=== PATIENT | male | born 1945 | race Caucasian/White ===

== ENCOUNTER 2023-10-28 15:12 | Outpatient (AMB) | payer MEDICARE, SELFPAY ==
--- NOTE | 2023-10-28 15:30 | MHC.PC.OV ---
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 Intake Note: New patient visit Medication List - Last Reconciled 10/28/23 by Aaliyah Carrillo MD albuterol sulfate 90 mcg/actuation inhalation atorvastatin 20 mg PO DAILY levothyroxine mcg PO umeclidinium-vilanterol 62.5-25 mcg/actuation (Anoro Ellipta) 1 ea inhalation DAILY Tobacco use date assessed: 10/28/23 Fall risk assessment: No Falls in past year Last assessed Fall Risk: 10/28/23 Dental Screening Dental Screen Date: 10/28/23 Did you have a dental visit in the last 12 months?: Yes Did you have a dental problem in the last 6 months where you did not have access to dental care?: No HPI HPI Comments History of Present Illness Details The patient is a 78 year old male with a past medical history of metastatic papillary thyroid cancer, hypothyroid, hyperlipidemia, arthritis presenting for follow up Thyroid cancer: Levels went up from 10-12. u/s and blood work every six months. Continued levothyroxine Underwent back surgery at [facility]. Back pain is decreased. Still having bilateral leg pain, shooting. Tried gabapentin in the past, duloxetine. [facility] He does endorse globus, difficulty swallowing at times. Declines GI consult. Continued sleep issues. Not using trazodone-wasnt working CV: On atorvastatin. Chronic shortness of breath. Afib or similar suspected. Declined AC. Underwent thorough cardiopulmonary work up. He is on anoro. Small mass/lump in left arm. New. Uncomfortable if he bumps it ROS see HPI PHYSICAL EXAM: GENERAL: Alert and oriented x 3. NAD EYES: EOMI. Anicteric. HENT: Moist mucous membranes. No scleral icterus. No cervical lymphadenopathy. LUNGS: Clear to auscultation bilaterally. CARDIOVASCULAR: Regular rate and rhythm. No murmur. No JVD. ABDOMEN: Soft, non-tender +bs EXTREMITIES: No edema. Non-tender. SKIN: No rashes or lesions. Warm. NEUROLOGIC: No focal neurological deficits. CN II-XII grossly intact PSYCHIATRIC: Cooperative. Appropriate mood and affect [facility] Family History (Updated 10/28/23 @ 16:20 by Sandy Gomez CMA) Mother Coronary artery disease Pulmonary embolism Father Cancer of prostate Social History (Updated 10/28/23 @ 15:33 by Sandy Gomez CMA) Housing: House (With ) Patient Tobacco Use Status: Former Tobacco user (Quit 50 years ago) Cigarette Packs Per Day: 0.5 Years Smoked: 3 e-Cigarette/Vaping Use: Never Used Second Hand Smoke Exposure: No service: Yes Current occupational status: retired Cognitive needs: No Hearing needs: Yes (bilateral hearing aids) Vision needs: Yes (glasses) Questionnaire PHQ-9 Over the last 2 weeks, how often have you been bothered by any of the following problems? 1. Little interest or pleasure in doing things: not at all 2. Feeling down, depressed, or hopeless: not at all 3. Trouble falling or staying asleep, or sleeping too much: several days 4. Feeling tired or having little energy: nearly every day 5. Poor appetite or overeating: not at all 6. Feeling bad about yourself - or that you are a failure or have let yourself or your family down: not at all 7. Trouble concentrating on things, such as reading the newspaper or watching television: not at all 8. Moving or speaking so slowly that other people could have noticed. Or the opposite - being so fidgety or restless that you have been moving around a lot more than usual: several days 9. Thoughts that you would be better off or of hurting yourself in some way: not at all Total score: 5 Depression Screening Interpretation: Positive Depression Screening Follow-up: Existing condition Depression Screening Done: Yes 58119 - PHQ-9 Billing: Yes Source: Developed by Drs. Pavan Phillip, Kim Garland, Jay Abreu and colleagues, with an educational collins from [employer]. Thrive Questionnaire I am a: Patient What is your living situation today?: I have a steady place to live Within the past 12 months, did the food you bought not last and you didn't have the money to get more?: Never true Within the past 12 months, did you worry whether your food would run out before you got money to buy more?: Never true Do you have trouble paying for medicines?: I choose not to answer this question Do you have trouble getting transportation to medical appointments?: No Do you have trouble paying your heating and electricity bill?: No Do you have trouble taking care of your child, family member or friend?: No Do you have trouble with day-to-day activities such as bathing, preparing meals, shopping, managing finances, etc.?: No Are you currently unemployed and looking for a job?: Yes Are you interested in more education?: No Please select the resources that you would like help with: None Currently or been in a relationship where the following occur: No concerns reported THRIVE Score: 0 AUDIT C Alcohol Use Questionnaire (AUDIT-C) 1. How often do you have a drink containing alcohol?: Never 3. How often do you have six or more drinks on one occasion?: Never Total Score: 0 MEEK-7 AMB Questionnaire MEEK-7 Date MEEK - 7 assessed: 10/28/23 Feeling nervous, anxious, or on edge: 1 = Several days Not being able to stop or control worryin = Not at all Worrying too much about different things: 0 = Not at all Trouble relaxin = Not at all Being so restless that it is hard to sit still: 0 = Not at all Feeling afraid as if something awful might happen: 0 = Not at all Source: Developed by Drs. Pavan Phillip, Kim Garland, Jay Abreu and colleagues, with an educational collins from [employer]. Physical exam (Primary Care) Vital Signs: Last Vital Signs Temp 97.9 F 10/28/23 15:34 Pulse 61 10/28/23 15:34 Resp 14 10/28/23 15:34 BP 132/62 10/28/23 15:52 Pulse Ox 97 10/28/23 15:34 Oxygen Delivery Method Room Air 10/28/23 15:34 BMI result Body Mass Index 29.2 Tobacco/Smoking Status: Tobacco use Status Tobacco use date assessed 10/28/23 10/28/23 15:37 Patient Tobacco Use Status Former Tobacco user (Quit 50 10/28/23 15:37 years ago) e-Cigarette/Vaping Use Never Used 10/28/23 15:37 PHQ-9: PHQ-9 Score PHQ-9: Total score 5 10/28/23 16:17 Depression Screening Interpretation: Positive Depression Screening Follow-up: Existing condition Currently or been in a relationship where the following occur: No concerns reported Assessment and Plan Assessment & Plan (1) 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: Code(s): C79.9 - Secondary malignant neoplasm of unspecified site; C73 - Malignant neoplasm of thyroid gland Plan: continue follow up with endocrinology. stable (2) Neuropathy: Code(s): G62.9 - Polyneuropathy, unspecified Plan: Trial lyratnaa Discussed potential side effects including dizziness, fatigue (3) Mass of arm: Code(s): R22.30 - Localized swelling, mass and lump, unspecified upper limb Qualifiers: Laterality: left Qualified Code(s): R22.32 - Localized swelling, mass and lump, left upper limb Plan: u/s ordered. 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 Declines GI referral (5) Shortness of breath: Code(s): R06.02 - Shortness of breath Plan: Suspect afib or similar. Declines AC other than aspirin. Declines lopressor, flecainide. Declines cardiology follow up Orders: Orders Vitamin B12 and Folate 10/28/23 E78.5 - Hyperlipidemia, unspecified, G62.9 - Polyneuropathy, unspecified Hemoglobin A1c 10/28/23 E78.5 - Hyperlipidemia, unspecified, G62.9 - Polyneuropathy, unspecified IRON PROFILE 10/28/23 E78.5 - Hyperlipidemia, unspecified, G62.9 - Polyneuropathy, unspecified US extremity nonvascular 10/28/23 R22.30 - Localized swelling, mass and lump, unspecified upper limb Referrals Gastroenterology Referral J02.9 - Acute pharyngitis, unspecified, R07.9 - Chest pain, unspecified, R13.10 - Dysphagia, unspecified Medications: New pregabalin 150 mg PO BID 180 caps 0RF 90 days atorvastatin 20 mg PO DAILY 90 tabs 3RF 90 days umeclidinium-vilanterol 62.5-25 mcg/actuation (Anoro Ellipta) 1 ea inhalation DAILY 60 ea 3RF albuterol sulfate 90 mcg/actuation 2 puffs inhalation Q4H PRN 8.5 grams 3RF shortness of breath or wheezing 90 days levothyroxine 200 mcg PO DAILY 90 tabs 3RF Coding Level of Care Code Est Pt Level 5 (80284) Diagnoses 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 C79.9; C73 Neuropathy G62.9 Mass of left upper extremity R22.32 Laterality: left Dysphagia, unspecified type R13.10 Dysphagia type: unspecified Shortness of breath R06.02 Time Spent (min) 52
[2023-10-28 15:34] VITALS: BP 144/70; PULSE 61; RESP 14; TEMP 36.6; O2SAT 97; BMI 29.2
[2023-10-28 15:52] VITALS: BP 132/62
== END 2023-10-28 17:02 | disposition home or self-care (01) ==
PROVIDERS: Visit Provider Internal Medicine
DX: C79.9 Secondary malignant neoplasm of unspecified site (principal); C73 Malignant neoplasm of thyroid gland; G62.9 Polyneuropathy, unspecified; R22.32 Localized swelling, mass and lump, left upper limb; R13.10 Dysphagia, unspecified; R06.02 Shortness of breath
CPT/HCPCS: 99215

== ENCOUNTER 2023-11-05 13:59 | Outpatient (REF) | payer MEDICARE, SELFPAY ==
--- NOTE | ~2023-11-05 | US_ITS ---
EXAMINATION: ULTRASOUND LEFT FOREARM CLINICAL INFORMATION: Left medial forearm mass. COMPARISON: None available. TECHNIQUE: High frequency linear ultrasound transducer was used to examine the area of clinical concern. FINDINGS: There is a tiny complex 6 x 3 x 6 mm cyst present with some internal echoes with increased through transmission. No internal vascularity is seen. No septations are seen. US/US extremity nonvascular IMPRESSION: Tiny complex cyst left medial forearm. Electronically signed by: Adi Gracia MD 11/06/2023 12:28 AM EDT
== END 2023-11-05 14:00 | disposition home or self-care (01) ==
LOC: HO.US 13:59
PROVIDERS: PCP Internal Medicine; Visit Provider Internal Medicine
DX: R22.30 Localized swelling, mass and lump, unspecified upper limb (principal)
CPT/HCPCS: 76882

== ENCOUNTER 2024-01-21 08:51 | Outpatient (AMB) | payer MEDICARE, SELFPAY ==
--- NOTE | 2024-01-21 08:59 | A.OFFVIS_ITS ---
Vital Signs 01/21/24 09:01 Height 6 ft 2.41 in Weight 230 lb BMI 29.2 Intake Visit Reasons: Left knee pain Intake Note: Evert is a 79 year old male who presents with complaints of progressively worsening left knee pain. Describes his pain as sharp and severe in nature. His pain has gotten worse over the last few years in spite of continued non operative treatments. He has failed the last 3 months of conservative treatment which has included topical creams, physical therapy exercises, Tylenol and anti- inflammatory medicines. He has had multiple cortisone injections in the past. The most recent injection gave him no relief. He has also had Euflexxa viscosupplementation injections which gave him very good relief. At this point the patient's left knee pain is interfering with his activities of daily living and his ability to sleep well through the night. The patient did undergo right total knee replacement surgery several years ago. Denies any pain in his right knee. He wishes to hold off on left total knee replacement surgery for as long as possible. Allergies No Known Allergies Allergy (Verified 01/21/24 09:06) Medication List - Last Reconciled 01/21/24 by Oniel Javier MD albuterol sulfate 90 mcg/actuation 2 puffs inhalation Q4H PRN 90 days atorvastatin 20 mg PO DAILY 90 days levothyroxine 200 mcg PO DAILY pregabalin 150 mg PO BID 90 days umeclidinium-vilanterol 62.5-25 mcg/actuation (Anoro Ellipta) 1 ea inhalation DAILY PFSH Family History (Updated 10/28/23 @ 16:20 by Sandy Gomez CMA) Mother Coronary artery disease Pulmonary embolism Father Cancer of prostate Social History (Updated 10/28/23 @ 15:33 by Sandy Gomez CMA) Housing: House (With ) Patient Tobacco Use Status: Former Tobacco user (Quit 50 years ago) Cigarette Packs Per Day: 0.5 Years Smoked: 3 e-Cigarette/Vaping Use: Never Used Second Hand Smoke Exposure: No service: Yes Current occupational status: retired Cognitive needs: No Hearing needs: Yes (bilateral hearing aids) Vision needs: Yes (glasses) Physical Exam Vital Signs: BMI result Body Mass Index 29.2 Const Other: Well-nourished well-developed very friendly male awake alert and oriented x3 in no acute distress Extrem Other: Bilateral lower extremity examination shows good capillary refill, no skin lesions noted, normal sensation light touch Left knee examination shows a minimal effusion, palpable crepitus with range of motion, pain with range of motion, range of motion from -3 degrees to 115 degrees, no instability Results Reviewed Results Reviewed: X-rays of the patient's left knee show joint space narrowing, subchondral sclerosis, no acute bony abnormalities Assessment & Plan Assessment & Plan (1) Left knee pain: Code(s): M25.562 - Pain in left knee Category: Medical (2) Osteoarthritis of left knee: Code(s): M17.12 - Unilateral primary osteoarthritis, left knee Category: Medical Plan Mr. Clemons presents with progressively worsening left knee pain due to osteoarthritis. I had a lengthy discussion with the patient regarding the treatment options. The patient wishes to hold off on left total knee re placement surgery for as long as possible. I agree with this plan. He has not gotten good relief from cortisone injections in the past. Thus, I will see whether or not his insurance company will cover a series of 3 Euflexxa viscosupplementation injections. I will see him back once the injections are available. Feel free to call me at any time should questions regarding his orthopedic management arise. I spent 20 minutes in reviewing the patient's records and imaging studies, seeing the patient and documenting in the medical record. Orders: Orders XR knee LT 3V Today M25.562 - Pain in left knee Coding Level of Care Code Est Pt Level 3 (46232) Complex EM visit Add On G2211 Diagnoses Left knee pain M25.562 Osteoarthritis of left knee M17.12
[2024-01-21 09:01] VITALS: BMI 29.2
== END 2024-01-21 09:22 | disposition home or self-care (01) ==
PROVIDERS: PCP Internal Medicine; Visit Provider Orthopaedic Surgery
DX: M25.562 Pain in left knee (principal); M17.12 Unilateral primary osteoarthritis, left knee
CPT/HCPCS: 99213; G2211

== ENCOUNTER 2024-01-21 09:49 | Outpatient (REF) | payer MEDICARE, SELFPAY ==
--- OUTSIDE RECORDS SUMMARY | 2024-01-28 17:19 | XMS_ITS ---
Author Name [facility] Organization Unknown History of Medication Use Medication Directions Dispensed Refills Start Date End Date Stat HYDROmorphone (DILAUDID) 2 MG tablet Take 1 tablet (2 mg total) by mouth Every 4 (four) to 6 (six) hours as needed for severe pain. Max Daily Amount: 12 mg 06/20/2023 active acetaminophen (TYLENOL) 325 MG tablet Take 3 tablets (975 mg total) by mouth every 8 (eight) hours around the clock. 06/20/2023 active cyclobenzaprine (FLEXERIL) 5 MG tablet Take 1 tablet (5 mg total) by mouth 3 (three) times a day as needed for muscle spasms. 06/20/2023 active senna-docusate (SENNA-S) 8.6-50 MG Take 2 tablets by mouth nightly. 06/20/2023 active umeclidinium-vilanterol (ANORO ELLIPTA) 62.5-25 MCG/ACT inhaler Inhale 1 puff every morning. 06/20/2023 active gabapentin (NEURONTIN) 300 MG capsule Take 1 capsule (300 mg total) by mouth 3 times daily (every 8 hours) as needed. 06/20/2023 active levothyroxine (SYNTHROID, LEVOTHROID) 200 MCG tablet Take 1 tablet (200 mcg total) by mouth every evening. 06/20/2023 active levothyroxine (SYNTHROID, LEVOTHROID) 200 MCG tablet 1 tab, orally daily, take an extra tab 2 days/month 01/17/2023 active albuterol (PROVENTIL HFA; VENTOLIN HFA) 108 (90 Base) MCG/ACT inhaler Inhale 2 puffs 4 times daily (every 6 hours) as needed. 01/17/2023 active umeclidinium-vilanterol (ANORO ELLIPTA) 62.5-25 MCG/ACT inhaler INHALE 1 INHALATION BY MOUTH ONCE DAILY 01/17/2023 active atorvastatin (LIPITOR) 20 MG tablet Take 1 tablet (20 mg total) by mouth daily. 01/17/2023 active gabapentin (NEURONTIN) 300 MG capsule TAKE 1 CAPSULE BY MOUTH 3 TIMES A DAY FOR 90 DAYS 01/17/2023 active Problems Problem Status Onset Date Problem Type Date of Resoluti on Source Disease of spinal cord active 2023-06-12 ProblemAct [facility] Neurogenic claudication due to lumbar spinal stenosis active 2023-06-12 ProblemAct HH CCT
== END 2024-01-21 09:50 | disposition home or self-care (01) ==
LOC: HO.HOSX 09:49
PROVIDERS: Visit Provider Orthopaedic Surgery
DX: M25.562 Pain in left knee (principal); M17.12 Unilateral primary osteoarthritis, left knee
CPT/HCPCS: 73562; 99212

== ENCOUNTER 2024-01-29 08:38 | Outpatient (AMB) | payer MEDICARE, SELFPAY ==
--- NOTE | 2024-01-29 08:42 | MHC.OFFVIS ---
Vital Signs 01/29/24 08:44 Height 6 ft 2.41 in Weight 230 lb BMI 29.2 Intake Visit Reasons: Inj-Left Knee Euflexxa #1 Intake Note: Evert is a 79 year old male who presents to the office for his first dose of Euflexxa gel injection on the left knee. He has had cortisone injections in the past which gave him minimal relief. He has also done physical therapy exercises which aggravated his pain. The patient did undergo right total knee replacement surgery in the past. He wishes to hold off on left total knee replacement surgery for as long as possible. Allergies No Known Allergies Allergy (Verified 01/29/24 08:45) Medication List - Last Reconciled 01/29/24 by Oniel Javier MD albuterol sulfate 90 mcg/actuation 2 puffs inhalation Q4H PRN 90 days atorvastatin 20 mg PO DAILY 90 days levothyroxine 200 mcg PO DAILY pregabalin 150 mg PO BID 90 days umeclidinium-vilanterol 62.5-25 mcg/actuation (Anoro Ellipta) 1 ea inhalation DAILY PFSH Family History (Updated 10/28/23 @ 16:20 by Sandy Gomez CMA) Mother Coronary artery disease Pulmonary embolism Father Cancer of prostate Social History (Updated 10/28/23 @ 15:33 by Sandy Gomez CMA) Housing: House (With ) Patient Tobacco Use Status: Former Tobacco user (Quit 50 years ago) Cigarette Packs Per Day: 0.5 Years Smoked: 3 e-Cigarette/Vaping Use: Never Used Second Hand Smoke Exposure: No service: Yes Current occupational status: retired Cognitive needs: No Hearing needs: Yes (bilateral hearing aids) Vision needs: Yes (glasses) Physical Exam Vital Signs: BMI result Body Mass Index 29.2 Const Other: Well-nourished well-developed very friendly male awake alert and oriented x3 in no acute distress Extrem Other: Bilateral lower extremity examination shows good capillary refill, no skin lesions noted, normal sensation light touch Left knee examination shows a minimal effusion, palpable crepitus with range of, pain with range of motion, no instability Office Procedures AMB Joint Injection/Aspiration Joint Injection/Aspiration Primary Site: left knee Prep: site was prepped using aseptic technique Injected: 20 mg of (Euflexxa viscosupplementation) and 1% plain lidocaine Procedure: The patient tolerated the procedure well Coding 42145 - Large joint Procedure code (CPT) selection complete Results Reviewed Results Reviewed: X-rays of the patient's left knee show joint space narrowing, subchondral sclerosis, no acute bony abnormalities Assessment & Plan Assessment & Plan (1) Osteoarthritis of left knee: Code(s): M17.12 - Unilateral primary osteoarthritis, left knee Category: Medical Plan Mr. Clemons presents with left knee pain due to osteoarthritis. I had a lengthy discussion with the patient regarding the treatment options. The risks and benefits of a series of right knee Euflexxa injections were discussed at length with the patient. The patient wished to proceed. He tolerated the injections well. He will continue with his home exercise program. He will follow up next week as scheduled. Feel free to call me at any time should questions regarding his orthopedic management arise. I spent 21 minutes in reviewing the patient's records and imaging studies, seeing the patient and documenting in the medical record. Orders: Orders AMB Joint Injection/Aspiration Today M17.12 - Unilateral primary osteoarthritis, left knee Coding Level of Care Code Est Pt Level 3 (61054) Complex EM visit Add On G2211 Diagnoses Osteoarthritis of left knee M17.12 CPT Codes Coding - Large joint: 74786 - Large joint ([id number])
[2024-01-29 08:44] VITALS: BMI 29.2
--- OUTSIDE RECORDS SUMMARY | 2024-01-29 23:03 | XMS_ITS ---
Author Name [facility] [place] Organization [facility] [place] Address [address] [place] [id number] Care Team Providers Care Senior Actuarial Analyst Name Role Phone TERRIE DIAZ Primary Care Provider Unavaila tempe [facility] Insurance Providers: All historical and current Section Date Range: From patient's date of to the date document was created. This section includes the names of all active insurance providers for the patient. Insurance Provider Type of Coverage Plan Name Start of Policy Coverage End of Policy Coverage Group Number Member ID Insurance Provider's Telephone Number Policy Cardenas's Name Patient's Relationship to Policy Cardenas [facility] MEDICARE SUPP[employer] MED[employer] BRONZ E Mar 21, 2011 [id number] [phone] Katlyn BELLO PATIENT [facility] MEDICARE SUPP[employer] MED[employer] BRONZ E Mar 21, 2011 [id number] Katlyn BELLO PATIENT MEDICARE (WN) MEDICARE (M) PART A Dec 19, 2008 PART A [id number] Katlyn BELLO PATIENT MEDICARE (WNR) MEDICARE (M) PART B Dec 19, 2008 PART B [id number] Katlyn BELLO PATIENT Selected Encounter This section includes the information on record at [place] for the Encounter. Date/Time Encounter Type Encounter Description Reason Provider Source Dec 26, 2023 09:30 AM OFFICE O/P EST MOD 30 MIN DERMATOLOGY ICD-10-CM Z86.018 Personal history of other benign neoplasm WARNERROSE MARIE RAMOS Eddy Encounter Template Text not used by [place] Assessments - Encounter Diagnoses This section includes the primary and secondary diagnoses documented for the Encounter. Date/Time Primary/Secondary Diagnosis Diagnosis Name Provider Source Jan 09, 2024 04:53 PM PRIMARY Personal history of other [facility] [place] [facility] Jan 09, 2024 04:53 PM SECONDARY Hemangioma of skin and subcutaneous tissue [facility] [place] [facility] Jan 09, 2024 04:53 PM SECONDARY Inflamed seborrheic keratosis [facility] [place] [facility] Jan 09, 2024 04:53 PM SECONDARY Nevus, non-neoplastic [facility] [place] [facility] Jan 09, 2024 04:53 PM SECONDARY Other melanin hyperpigmentation [facility] [place] [facility] Jan 09, 2024 04:53 PM SECONDARY Other seborrheic keratosis [facility] [place] [facility] Plan of Treatment: Future Appointments (+ 6 months) and Future Tests (+/- 45 days) The Plan of Treatment section includes future care activities for the patient from all [place] [facility] This section includes future appointments and future orders which are active, pending or scheduled. Future Appointments This section includes appointments that were scheduled to occur 6 months from the date of the Encounter, up to a maximum of 20 appointments. The data comes from all [place] treatment facilities. Appointment Date/Time Appointment Type Appointme nt Facility Name Dec 27, 2023 03:00 PM AMBULATORY - MEDICINE [facility] [place] [place] [facility] Jan 10, 2024 01:00 PM AMBULATORY - MEDICINE [place] [facility] [place] [facility] Feb 20, 2024 04:40 PM AMBULATORY - MEDICINE [place] [facility] [place] [facility] Mar 27, 2024 10:30 AM AMBULATORY - MEDICINE [place] [facility] [place] [facility] Active, Pending, and Scheduled Orders This section includes a listing of several types of active, pending, and scheduled orders, including clinic medications orders, diagnostic test orders, procedure orders and consult orders; where the start date of the order is 45 days before the date of the Encounter or 45 days after the date of theEncounter. The data comes from all [place] treatment facilities. Test Date/Time Test Type Test Details Facility Name Dec 27, 2023 03:28 PM Consult Order COMMUNITY CARE-PULMONARY Cons Manager Language's Choice [facility] Lab Results: +/- 30 days of the encounter This section includes the Chemistry and Hematology Lab Results on record with [place] for the patient. Radiology Reports and Pathology Reports are provided separately, in subsequent sections. Lab Results This section contains the Chemistry/Hematology Results that were resulted 30 days before or 30 daysafter the date of the Encounter. Date/Time Source Result Type Result - Unit Interpretation Reference Range Comment Dec 27, 2023 03:37 PM [facility] TSH Specimen Type: SERUM No comment entered. Ordering Provider: KISHA DIAZ AM Report Released Date/Time: Dec 27, 2023 03:31 PM Reporting Lab: [facility] [address] [facility] [address] Performing Lab: [facility] [address] [facility] [address] TSH 0.08 u[IU]/mL L 0.35-5.00 Dec 27, 2023 03:37 PM [facility] HEMOGLOBIN A1C PANEL Specimen Type: BLOOD Comment: Values obtained from A1C measurements can vary. For atypical A1C assays, a reported value of 7.0 could actually be between 6.72 and 7.28 if measured by a reference method. A reported value of 9.0 could actually be between 8.73 and 9.27. Ref: http://www.ngs p.org/CAPdata. asp Ordering Provider: KISHA DIAZ AM Report Released Date/Time: Dec 27, 2023 03:31 PM Reporting Lab: [facility] [address] [facility] [address] Performing Lab: [address] [address] HEMOGLOBIN A1C 5.2 4.0-5.6 Dec 27, 2023 03:37 PM [facility] CBC Specimen Type: BLOOD No comment entered. Ordering Provider: KISHA DIAZ AM Report Released Date/Time: Dec 27, 2023 03:31 PM Reporting Lab: [address] [address] Performing Lab: [address] [address] WBC 7.94 10*3/uL 4.50-11.00 RBC 4.90 10*6/uL 4.23-5.66 HGB 14.7 g/dL 12.8-17 HCT 43.5 39.2-50.4 MCV 88.8 fL 82-99 MCHC 33.8 g/dL 30.8-35.1 PLT 263 10*3/uL 140-360 RDW-CV 13.2 12.0-16.0 MCH 30.0 pg 26.2-32.6 Dec 27, 2023 03:37 PM [facility] LIVER FUNCTION Specimen Type: SERUM No comment entered. Ordering Provider: KISHA DIAZ AM Report Released Date/Time: Dec 27, 2023 03:31 PM Reporting Lab: [address] [address] Performing Lab: [address] [address] PROTEIN,TOTAL 6.4 g/dL 6.0-8.3 ALBUMIN 3.8 g/dL 3.5-5.0 ALKALINE PHOSPHATASE 56 U/L 40-150 AST 18 U/L 5-34 ALT 15 U/L BILIRUBIN, TOTAL 0.6 mg/dL 0.2-1.2 Dec 27, 2023 03:37 PM [facility] BASIC METABOLIC PANEL (non-fasting) Specimen Type: SERUM No comment entered. Ordering Provider: KISHA DIZA AM Report Released Date/Time: Dec 27, 2023 03:31 PM Reporting Lab: [address] [address] Performing Lab: [facility] [address] [facility] [address] UREA NITROGEN 17 mg/dL 7-25 GLUCOSE 89 mg/dL 65-100 SODIUM 140 mmol/L 135-145 POTASSIUM 4.0 mmol/L 3.5-5.0 CHLORIDE 107 mmol/L 100-110 CO2 23 meq/L 20-30 CREATININE, Serum 0.96 mg/dL 0.50-1.40 eGFR(CKD-EPI 2020) 81 mL/min >60 Dec 27, 2023 03:37 PM [facility] LIPID PANEL, NON FASTING Specimen Type: SERUM No comment entered. Ordering Provider: KISHA DIAZ AM Report Released Date/Time: Dec 27, 2023 03:31 PM Reporting Lab: [facility] [address] [facility] [address] Performing Lab: [address] [address] CHOLESTEROL 153 mg/dL TRIGLYCERIDE 105 mg/dL 0-150 LDL calculated 86 mg/dL 0-129 CHOL/HDL 3.3 HDL CHOLESTEROL 46 mg/dL 40-60 Social History: Smoking Status (Most current) and Tobacco Use (All prior to encounter date) This section includes the most current, and the historical, smoking and tobacco- related health factors from the [place] facility where the Encounter took place. Current Smoking Status This section includes the most current smoking, or tobacco-related health factor, from the [place] facility where the Encounter took place. Date/Time Current Smoking Status Comment Edwin greenwood May 25, 2022 01:30 PM VA-TOBACCO NEVER USED [facility] Tobacco Use History This section includes a history of the smoking, or tobacco-related health factors, that were collected on or before the date of the Encounter. The data comes from the [place] facility where the Encounter took place. Date/Time Smoking Status/Tobacco Use Comment Yuki acdarian May 19, 2021 02:00 PM VA-TOBACCO [facility] [place] [facility] May 19, 2021 02:00 PM VA-TOBACCO QUIT 15 YRS OR MORE [facility] [place] [facility] Mar 24, 2020 08:36 AM VA-TOBACCO [facility] Mar 24, 2020 08:36 AM VA-TOBACCO QUIT 15 YRS OR MORE [facility] Sep 17, 2017 02:25 PM QUIT TOBACCO USE > 7 YEARS AGO [facility] Encounter Notes: All associated encounter notes This section contains the clinical notes associated to the Encounter. 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 denies any other new/changing/bleeding/non- healing lesions. 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 History of Sun Exposure/Sunburns: Denies blistering roberts or tanning bed use Active Outpatient Medications (including Supplies): Active Outpatient Medications Status 1) LUBRICATING (PF) OPH OINT APPLY THIN RIBBON INTO EACH ACTIVE EYE AT BEDTIME FOR DRY EYE Active Non-VA Medications Status 1) Non-VA ALBUTEROL INHALER INHL,ORAL BY MOUTH ACTIVE 2) Non-VA ATORVASTATIN TAB BY MOUTH ACTIVE 3) Non-VA LEVOTHYROXINE NA (SYNTHROID) 200MCG TAB 0.2MG ACTIVE BY MOUTH EVERY MONTH 4) Non-VA LEVOTHYROXINE NA (SYNTHROID) 200MCG TAB 0.2MG ACTIVE BY MOUTH EVERY MORNING 30 MINUTES BEFORE BREAKFAST 5) Non-VA UMECLIDINIUM/VILANTEROL (ANORO) INHL,ORAL BY ACTIVE MOUTH 6) Non-VA NJYBYIHFFHEB32.5/VILANTERO L25MCG 30D INH 1 ACTIVE INHALATION BY MOUTH ONCE DAILY 7 Total Medications PHYSICAL EXAM: Vizcarra Skintype II General-AxOx3, NAD, pleasant, breathing unlabored, speech clear Cutaneous examination, as permitted by the patient, including scalp, face, eyes, ears, neck, chest, back, abdomen, arms, hands, fingers, legs Pertinent findings per below: -L upper chest with a well healed surgical scar, NER -Multiple scattered stuck-on appearing waxy villeda and brown papules and plaques with noted milia-like cysts, comedo-like openings and fissures/ridges on dermoscopy. -Scattered uniformly pigmented light villeda and brown jagged macules in sun distributed areas. -Scattered kamara-red dome shaped papules on chest/back with noted lacunae and septae noted on dermoscopy -Multiple scattered symmetrical evenly pigmented brown macules and papules, most under 6mm. Diagnosis/Plan: #Personal History of Atypical Nevus: -No evidence of recurrence -Full Body Skin Exam advised yearly -Photoprotection discussed -Patient instructed to follow up in clinic for any concerning lesions or changes #Seborrheic Keratoses, Inflamed -The [place] was educated regarding the benign nature, but given irritation/pain, destructive treatment requested. -Liquid nitrogen cryotherapy performed as a destructive method. -Liquid nitrogen (2 cycles x 5-8sec) x #1 lesions performed (L Lower back - lesion of concern). -Side effects including but not limited to redness, crusting, swelling, blistering, scarring, and hypopigmentation discussed. -Wound care discussed in length. #Seborrheic Keratoses: -The [place] was educated regarding the benign nature, but to return with any growth, change or symptoms in area. #Nevi: -ABCDEs of melanotic lesions discussed, self examinations encouraged -No concerning lesions today on examination -A full body skin check is recommended yearly -Photoprotection discussed. #Solar Lentigines -The was educated regarding the benign nature and relation to chronic sun exposure, but to return with any growth, change or symptoms in area. -Photoprotection discussed. #Kamara Angiomas: -The was educated regarding the benign nature, but to return with any growth, change or symptoms in area. RTC 1 yr, sooner PRN * [place] educated to RTC klarissa if any new, changing, symptomatic lesions. * Education on sun protection and avoidance strategies was provided. * Differential diagnosis, prescription options and risks/benefits were discussed with the patient, who consented to treatment plan. * consented to photography for documentation if indicated. * A dermatoscope was used during the exam. * NUB = Neoplasm of Uncertain Behavior of Skin * NMSC = Nonmelanoma Skin Cancer * AK = Actinic Keratosis ------TIME ESTIMATION To include but not limied to: -Review of medical records -Time spent with patient including obtaining history, physical exam, shared decision making, procedures and counseling -Post visit documentation; HPI and physical exam findings, clinical researching, medical decision making, medication and lab ordering Total estimated time = 30 min ------- Medication Reconciliation: Outpatient: Has the patient been taking medications as documented in the EMLR? YES: The patient has been taking medications as documented in the EMLR. Essential Medication List for Review used to complete this medication reconciliation. INCLUDED IN THIS LIST: Alphabetical list of active outpatient prescriptions dispensed from this [place] (local) and dispensed from another [place] or DoD facility (remote) as well as inpatient orders (local, pending and active), local clinic medications, locally documented non-VA medications, and local prescriptions that have or been discontinued in the past 90 days. - All changes in medications, including all non-VA/Herbal/OTC medications were entered into CPRS. - If there were any medications the patient should no longer take, they were discontinued. - The patient/caregiver was instructed to update this list, discard old lists, and take this list to the next appointment, whether with a VA or non-VA provider. JLV Link Data on this list may not be complete. Please check JLV. Allergies/ADRs (Tool #5) FACILITY ALLERGY/ADR -------- No Remote Allergy/ADR Data available for this patient [place] [facility] [place] [facility] No Known Allergies Med Recon NoGlossary (Tool #1) INCLUDED IN THIS LIST: Alphabetical list of active outpatient prescriptions dispensed from this VA (local) and dispensed from another VA or DoD facility (remote) as well as inpatient orders (local pending and active), local clinic medications, locally documented non-VA medications, and local prescriptions that have or been discontinued in the past 90 days. Non-VA Meds Last Documented On: May 25, 2022 NOTE The display of VA prescriptions dispensed from another VA or DoD facility (remote) is limited to active outpatient prescription entries matched to National Drug File at the originating site and may not include some items such as investigational drugs, compounds, etc. NOT INCLUDED IN THIS LIST: Medications self-entered by the patient into personal health records (i.e. [employer]) are NOT included in this list. Non-VA medications documented outside this [place], remote inpatient orders (regardless of status) and remote clinic medications are NOT included in this list. The patient and provider must always discuss medications the patient is taking, regardless of where the medication was dispensed or obtained. Non-VA ALBUTEROL INHALER INHL,ORAL INHALE BY MOUTH Non-VA medication recommended by VA provider. Non-VA ATORVASTATIN TAB TAKE BY MOUTH Non-VA medication recommended by VA provider. Non-VA LEVOTHYROXINE NA (SYNTHROID) 200MCG TAB TAKE ONE TABLET BY MOUTH EVERY MORNING 30 MINUTES BEFORE BREAKFAST Patient wants to buy from Non-[place] pharmacy. Medication prescribed by Non-VA provider. Non-VA LEVOTHYROXINE NA (SYNTHROID) 200MCG TAB TAKE ONE TABLET BY MOUTH EVERY MONTH Patient wants to buy from Non-DE pharmacy. Medication prescribed by Non-VA provider. OUTPT LUBRICATING (PF) OPH OINT (Status = Active) APPLY THIN RIBBON INTO EACH EYE AT BEDTIME FOR DRY EYE Rx# [id number] Last Released: 04/01/23 Qty/Days Supply: Rx Expiration Date: 03/25/24 Refills Remainin Indication: FOR DRY EYE Non-VA UMECLIDINIUM/VILANTEROL (ANORO) INHL,ORAL INHALE BY MOUTH ONCE DAILY Non-VA CUQEFOJZOESP65.5/VILANTERO L25MCG 30D INH DIHAMZJCFQNY02.5/VILANTERO L25MCG 30D INH INHALE 1 INHALATION BY MOUTH ONCE DAILY Medication prescribed by Non-VA provider. Indication: FOR BRONCHOSPASM PREVENTION WITH COPD SUPPLIES /renetta/ GABRIELLA ALVARADO, BRYSON, BLOOD BANK ORDER CONTROL CLERK-C NURSE PRACTITIONER Signed: 12/26/2023 10:00 GABRIELLA ALVARADO [facility] [place] [facility]
--- OUTSIDE RECORDS SUMMARY | 2024-01-29 23:03 | XMS_ITS | Continuity of Care Document ---
Author Name [facility] Organization [facility] Care Team Providers Care Pull Up Hand Name Role Phone [facility] Unavailable Unavailable Problems Combined list of problems from Department of Defense and Veterans Affairs facilities. It does not include entries that were removed or entered in error. Problem Status Onset Date Problem Type Date of Resolution Comments Source AF - Atrial Fibrillation ([facility] [id number]) Active [facility] Benign prostatic hyperplasia Active Condition [facility] COPD - Chronic Obstructive Pulmonary Disease ([facility] 27643423) Active Condition [facility] Exposure to potentially hazardous substance Active Condition [facility] Hyperlipidemia Active Condition [facility]aired fasting glycaemia Active Condition [facility] Papillary thyroid carcinoma Active Condition [facility] Spinal stenosis Active [facility] Vocal cord paralysis Active Condition [facility] Diagnosis: ICD-10-CM H61.23 Impacted cerumen, bilateral Active Diagnosis [facility] Diagnosis: ICD-10-CM I48.91 Unspecified atrial fibrillation Active Diagnosis [facility] Diagnosis: ICD-10-CM Z86.018 Personal history of other benign neoplasm Active Diagnosis [facility] Diagnosis: ICD-10-CM Z02.89 Encounter for other administrative examinations Active Diagnosis [facility] Diagnosis: ICD-10-CM Z46.0 Encounter for fit/adjst of spectacles and contact lenses Active Diagnosis [facility] Diagnosis: ICD-10-CM H40.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 Medication Details Route Status Patient Instructions Prescription Expires Prescription Number Last Dispense Date Ordering Provider Order Date Order Qty Source ALBUTEROL 90MCG/ACTUA T (CFC-F) INHL,ORAL,8 .5GM DOSE COUNTER INHALE 2 PUFFS BY MOUTH EVERY 4 HOURS NEEDED FOR BRONCHOS PASM RESPIR ATORY (INHAL ATION) ACTIVE 12/27/2024 [id number] TERRIE DIAZ 2023 1 [facility] ALBUTEROL INHALER INHL,ORAL INHALE BY MOUTH RESPIR ATORY (INHAL ATION) ACTIVE Sebastian [facility] ATORVASTATI N TAB TAKE BY MOUTH ORAL ACTIVE Sebastian [facility] CARBAMIDE PEROXIDE 6.5%/GLYCER IN SOLN,OTIC INSTILL 5 DROPS INTO EACH EAR ONCE 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 (OTIC) 01/26/2024 [id number] TERRIE DIAZ 2023 15 [facility] CARBOXYMETH YLCELLULOSE NA 0.5% SOLN,OPH INSTILL 1 DROP INTO EACH EYE FOUR TIMES DAILY NEEDED FOR DRY EYES OPHTHA LMIC 05/16/2023 [id number] 4 Sebastian [facility] LEVOTHYROXI NE NA 200MCG TAB (SYNTHROID) TAKE ONE TABLET BY MOUTH EVERY MORNING 30 MINUTES BEFORE BREAKFAS T ORAL ACTIVE TERRIE DIAZ 2017 [facility] [place] LEVOTHYROXI NE NA 200MCG TAB (SYNTHROID) TAKE ONE TABLET BY MOUTH EVERY MONTH ORAL ACTIVE TERRIE DIAZ 2018 [facility] MINERAL OIL,LIGHT/P ETROLATUM (PF) OINT,OPH APPLY THIN RIBBON INTO EACH EYE AT BEDTIME FOR DRY EYE OPHTHA LMIC ACTIVE 03/25/2024 [id number] JASONA[facility]ba[facility]oma[facility] E 2023 3 [facility] UMECLIDINIU M 62.5MCG/BRIAN ANTEROL 25MCG/ACTUA T INH,ORAL,30 D INHALE 1 INHALATI ON BY MOUTH ONCE DAILY RESPIR ATORY (INHAL ATION) ACTIVE TERRIE DIAZ 2022 [facility] UMECLIDINIU M/VILANTERO L (ANORO) INHL,ORAL INHALE BY MOUTH ONCE DAILY RESPIR ATORY (INHAL ATION) ACTIVE Sebastian MORAELE 2022 [facility] Immunizations Combined list of available immunizations from the Department of Defense and Veterans Affairs facilities. Immunization Series Date Given Administered By Site Reaction Lot Number CVX Code Drug Bread Wrapping Machine Feeder Status Comments Source COVID-19 (MODERNA), MRNA, LNP-S, PF, 100 MCG/0.5 ML DOSE 2 2020 207 complet ed MOD; [id number]; 1 [facility] ZOSTER RECOMBINANT 2 2019 187 complet ed [facility] ZOSTER RECOMBINANT 1 2019 187 complet ed [facility] INFLUENZA, SEASONAL, INJECTABLE 2016 141 complet ed [facility] PNEUMOCOCCAL CONJUGATE PCV 13 2016 133 complet ed YES [facility] TD(ADULT) UNSPECIFIED FORMULATION 2013 139 complet ed [facility] TDAP 2013 115 complet ed [facility] PNEUMOCOCCAL POLYSACCHARID E PPV23 2012 33 complet ed [facility] Results Combined list of recent chemistry, hematology and other laboratory results from Department of Defense and Veterans Affairs, ranging from 15 months to all on record, depending upon the facility. Order Name Results Value Reference Range Date Interpretation Specimen Comments Source BASIC METABOLIC PANEL (non-fast ing) UREA NITROGEN [MASS/VOLUM E] IN SERUM OR PLASMA 17 mg/dL 7 - 25 12/26 Specimen Type: SERUM No comment entered. Ordering Provider: MANOLO DIAZ Report Released Date/Time: Dec 27, 2023 03:31 PM Reporting Lab: [address] [address] Performing Lab: [address] [address] [facility] BASIC METABOLIC PANEL (non-fast ing) GLUCOSE [MASS/VOLUM E] IN SERUM OR PLASMA 89 mg/dL 65 - 100 12/26 Specimen Type: SERUM No comment entered. Ordering Provider: MANOLO DIAZ Report Released Date/Time: Dec 27, 2023 03:31 PM Reporting Lab: [facility] [address] [facility] [address] Performing Lab: [address] [address] [facility] BASIC METABOLIC PANEL (non-fast ing) SODIUM [MOLES/VOLU ME] IN SERUM OR PLASMA 140 mmol/L 135 - 145 12/26 Specimen Type: SERUM No comment entered. Ordering Provider: MANOLO DIAZ Report Released Date/Time: Dec 27, 2023 03:31 PM Reporting Lab: [facility] [address] [address] Performing Lab: [address] [address] [facility] BASIC METABOLIC PANEL (non-fast ing) POTASSIUM [MOLES/VOLU ME] IN SERUM OR PLASMA 4.0 mmol/L 3.5 - 5.0 12/26 Specimen Type: SERUM No comment entered. Ordering Provider: MANOLO DIAZ Report Released Date/Time: Dec 27, 2023 03:31 PM Reporting Lab: [facility] [place] [facility] [address] [facility] [address] Performing Lab: [facility] [place] [facility] [address] [facility] [address] [facility] [place] [facility] BASIC METABOLIC PANEL (non-fast ing) CHLORIDE [MOLES/VOLU ME] IN SERUM OR PLASMA 107 mmol/L 100 - 110 12/26 Specimen Type: SERUM No comment entered. Ordering Provider: MANOLO DIAZ Report Released Date/Time: Dec 27, 2023 03:31 PM Reporting Lab: [facility] [place] [facility] [address] [address] Performing Lab: [facility] [place] [address] [address] [facility] BASIC METABOLIC PANEL (non-fast ing) CARBON DIOXIDE, TOTAL [MOLES/VOLU ME] IN SERUM OR PLASMA 23 meq/L 20 - 30 12/26 Specimen Type: SERUM No comment entered. Ordering Provider: MANOLO DIAZ Report Released Date/Time: Dec 27, 2023 03:31 PM Reporting Lab: [facility] [place] [address] [address] Performing Lab: [facility] [place] [address] [address] [facility] [place] [facility] BASIC METABOLIC PANEL (non-fast ing) CREATININE [MASS/VOLUM E] IN SERUM OR PLASMA 0.96 mg/dL 0.50 - 1.40 12/26 Specimen Type: SERUM No comment entered. Ordering Provider: MANOLO DIAZ Report Released Date/Time: Dec 27, 2023 03:31 PM Reporting Lab: [facility] [place] [address] [address] Performing Lab: [facility] [place] [address] [address] [facility] [place] [facility] BASIC METABOLIC PANEL (non-fast ing) GLOMERULAR FILTRATION RATE/1.73 SQ M.PREDICTED [VOLUME RATE/AREA] IN SERUM, PLASMA OR BLOOD BY CREATININE- BASED FORMULA (CKD-EPI 2020) 81 mL/min 60 12/26 Specimen Type: SERUM No comment entered. Ordering Provider: MANOLO DIAZ Report Released Date/Time: Dec 27, 2023 03:31 PM Reporting Lab: [facility] [place] [address] [address] Performing Lab: [facility] [place] [facility] [address] [address] [facility] [place] [facility] CBC LEUKOCYTES [#/VOLUME] IN BLOOD BY AUTOMATED COUNT 7.94 10*3/u L 4.50 - 11.00 12/26 Specimen Type: BLOOD No comment entered. Ordering Provider: MANOLO DIAZ Report Released Date/Time: Dec 27, 2023 03:31 PM Reporting Lab: [facility] [place] [address] [address] Performing Lab: [facility] [place] [address] [address] [facility] [place] [facility] CBC ERYTHROCYTE S [#/VOLUME] IN BLOOD BY AUTOMATED COUNT 4.90 10*6/u L 4.23 - 5.66 12/26 Specimen Type: BLOOD No comment entered. Ordering Provider: MANOLO DIAZ Report Released Date/Time: Dec 27, 2023 03:31 PM Reporting Lab: [facility] [place] [address] [address] Performing Lab: [facility] [place] [address] [address] [facility] [place] [facility] CBC HEMOGLOBIN [MASS/VOLUM E] IN BLOOD 14.7 g/dL 12.8 - 17 12/26 Specimen Type: BLOOD No comment entered. Ordering Provider: MANOLO DIAZ Report Released Date/Time: Dec 27, 2023 03:31 PM Reporting Lab: [facility] [address] [address] Performing Lab: [facility] [place] [facility] [address] [facility] [address] [facility] [place] [facility] CBC HEMATOCRIT [VOLUME FRACTION] OF BLOOD BY AUTOMATED COUNT 43.5 39.2 - 50.4 12/26 Specimen Type: BLOOD No comment entered. Ordering Provider: MANOLO DIAZ Report Released Date/Time: Dec 27, 2023 03:31 PM Reporting Lab: [facility] [place] [facility] [address] [facility] [facility] [address] Performing Lab: [facility] [place] [facility] [address] [facility] [facility] [address] [facility] [place] [facility] CBC MCV [ENTITIC VOLUME] BY AUTOMATED COUNT 88.8 fL 82 - 99 12/26 Specimen Type: BLOOD No comment entered. Ordering Provider: MANOLO DIAZ Report Released Date/Time: Dec 27, 2023 03:31 PM Reporting Lab: [facility] [place] [facility] [address] [facility] [address] Performing Lab: [facility] [place] [facility] [address] [address] [facility] [place] [facility] CBC MCHC [MASS/VOLUM E] BY AUTOMATED COUNT 33.8 g/dL 30.8 - 35.1 12/26 Specimen Type: BLOOD No comment entered. Ordering Provider: MANOLO DIAZ Report Released Date/Time: Dec 27, 2023 03:31 PM Reporting Lab: [facility] [place] [facility] [address] [facility] [address] Performing Lab: [facility] [place] [facility] [address] [facility] [address] [facility] [place] [facility] CBC PLATELETS [#/VOLUME] IN BLOOD BY AUTOMATED COUNT 263 10*3/u L 140 - 360 12/26 Specimen Type: BLOOD No comment entered. Ordering Provider: MANOLO DIAZ Report Released Date/Time: Dec 27, 2023 03:31 PM Reporting Lab: [facility] [place] [facility] [address] [address] Performing Lab: [facility] [place] [facility] [address] [facility] [address] [facility] [place] [facility] CBC ERYTHROCYTE DISTRIBUTIO N WIDTH [RATIO] BY AUTOMATED COUNT 13.2 12.0 - 16.0 12/26 Specimen Type: BLOOD No comment entered. Ordering Provider: MANOLO DIAZ Report Released Date/Time: Dec 27, 2023 03:31 PM Reporting Lab: [facility] [place] [facility] [address] [facility] [address] Performing Lab: [facility] [place] [address] [address] [facility] [place] [facility] CBC MCH [ENTITIC MASS] BY AUTOMATED COUNT 30.0 pg 26.2 - 32.6 12/26 Specimen Type: BLOOD No comment entered. Ordering Provider: MANOLO DIAZ Report Released Date/Time: Dec 27, 2023 03:31 PM Reporting Lab: [facility] [place] [address] [address] Performing Lab: [place] [facility] [place] [address] [address] [facility] [place] [facility] HEMOGLOBI N A1C PANEL HEMOGLOBIN A1C/HEMOGLO BIN.TOTAL IN BLOOD BY HPLC 5.2 4.0 - 5.6 12/26 Specimen Type: BLOOD Comment: Values obtained from A1C measurement s can vary. For atypical A1C assays, a reported value of 7.0 could actually be between 6.72 and 7.28 if measured by a reference method. A reported value of 9.0 could actually be between 8.73 and 9.27. Ref: http://www. ngsp.org/[place] Pdata.asp Ordering Provider: MANOLO DIAZ Report Released Date/Time: Dec 27, 2023 03:31 PM Reporting Lab: [facility] [place] [address] [address] Performing Lab: [facility] [place] [facility] [address] [facility] [address] [facility]IRTRN [facility] LIPID PANEL, NON FASTING CHOLESTEROL [MASS/VOLUM E] IN SERUM OR PLASMA 153 mg/dL 12/26 Specimen Type: SERUM No comment entered. Ordering Provider: MANOLO DIAZ Report Released Date/Time: Dec 27, 2023 03:31 PM Reporting Lab: [facility] [place] [facility] [address] [facility] [address] Performing Lab: [facility] [address] [facility] [address] [facility] LIPID PANEL, NON FASTING TRIGLYCERID E [MASS/VOLUM E] IN SERUM OR PLASMA 105 mg/dL 0 - 150 12/26 Specimen Type: SERUM No comment entered. Ordering Provider: MANOLO DIAZ Report Released Date/Time: Dec 27, 2023 03:31 PM Reporting Lab: [facility] [place] [address] [address] Performing Lab: [facility]N [facility] [address] [address] [facility]ITALRRIVERVIEW REG[facility]ENTERN [facility]ITALUSE [facility] LIPID PANEL, NON FASTING CHOLESTEROL IN LDL [MASS/VOLUM E] IN SERUM OR PLASMA BY CALCULATION 86 mg/dL 0 - 129 12/26 Specimen Type: SERUM No comment entered. Ordering Provider: MANOLO DIAZ Report Released Date/Time: Dec 27, 2023 03:31 PM Reporting Lab: [facility] [place] [address] [address] Performing Lab: [facility] [address] [address] [facility]ITALRRIVERVIEW REGION[facility] MEDICAL CENTERN [facility]ITALUSE [facility] LIPID PANEL, NON FASTING CHOLESTEROL .TOTAL/CHOL ESTEROL IN HDL [MASS RATIO] IN SERUM OR PLASMA 3.3 12/26 Specimen Type: SERUM No comment entered. Ordering Provider: MANOLO DIAZ Report Released Date/Time: Dec 27, 2023 03:31 PM Reporting Lab: [facility] [place] [facility] [address] [facility] [address] Performing Lab: [place] [facility] [place] [facility] [address] [facility] [address] [facility] [place] [facility] LIPID PANEL, NON FASTING CHOLESTEROL IN HDL [MASS/VOLUM E] IN SERUM OR PLASMA 46 mg/dL 40 - 60 12/26 Specimen Type: SERUM No comment entered. Ordering Provider: MANOLO DIAZ Report Released Date/Time: Dec 27, 2023 03:31 PM Reporting Lab: [facility] [place] [facility] [address] [facility] [address] Performing Lab: [facility] TRN [facility]ITAL[facility]ETS [facility] [address] [facility] [address] [facility]ITALRRIVERVIEW [facility] CENTERN [facility]ITALUSE [facility] LIVER FUNCTION PROTEIN [MASS/VOLUM E] IN SERUM OR PLASMA 6.4 g/dL 6.0 - 8.3 12/26 Specimen Type: SERUM No comment entered. Ordering Provider: MANOLO DIAZ Report Released Date/Time: Dec 27, 2023 03:31 PM Reporting Lab: [facility] [place] [facility] [address] [facility] [address] Performing Lab: [facility]RL W[facility]N [facility]ITAL[facility] [address] [facility] [address] [facility]ITALRRIVERVIEW REGION[facility] MEDICAL CENTERN [facility]OSPITALUSE [facility] LIVER FUNCTION ALBUMIN [MASS/VOLUM E] IN SERUM OR PLASMA 3.8 g/dL 3.5 - 5.0 12/26 Specimen Type: SERUM No comment entered. Ordering Provider: MANOLO DIAZ Report Released Date/Time: Dec 27, 2023 03:31 PM Reporting Lab: [facility] [place] [facility] [address] [facility] [address] Performing Lab: [facility] [place] [facility] [address] [facility] [address] [facility]ITALRRIVERVIEW REGION[facility] MEDICAL CENTERN [facility]USE [facility] LIVER FUNCTION ALKALINE PHOSPHATASE [ENZYMATIC ACTIVITY/VO LUME] IN SERUM OR PLASMA 56 U/L 40 - 150 12/26 Specimen Type: SERUM No comment entered. Ordering Provider: MANOLO DIAZ Report Released Date/Time: Dec 27, 2023 03:31 PM Reporting Lab: [facility] [place] [facility] [address] [facility] [address] Performing Lab: [facility] [place] [facility] [address] [address] [facility] [place] [facility] LIVER FUNCTION ASPARTATE AMINOTRANSF ERASE [ENZYMATIC ACTIVITY/VO LUME] IN SERUM OR PLASMA 18 U/L 5 - 34 12/26 Specimen Type: SERUM No comment entered. Ordering Provider: MANOLO DIAZ Report Released Date/Time: Dec 27, 2023 03:31 PM Reporting Lab: [facility] [place] [facility] [address] [facility] [address] Performing Lab: [facility] [place] [facility] [address] [facility] [address] [place] [facility] [place] [facility] LIVER FUNCTION ALANINE AMINOTRANSF ERASE [ENZYMATIC ACTIVITY/VO LUME] IN SERUM OR PLASMA 15 U/L 12/26 Specimen Type: SERUM No comment entered. Ordering Provider: MANOLO DIAZ Report Released Date/Time: Dec 27, 2023 03:31 PM Reporting Lab: [facility] [place] [facility] [address] [facility] [address] Performing Lab: [facility] [place] [address] [address] [place] [facility] [place] [place] [facility] LIVER FUNCTION BILIRUBIN.T OTAL [MASS/VOLUM E] IN SERUM OR PLASMA 0.6 mg/dL 0.2 - 1.2 12/26 Specimen Type: SERUM No comment entered. Ordering Provider: MANOLO DIAZ Report Released Date/Time: Dec 27, 2023 03:31 PM Reporting Lab: [facility] [place] [facility] [address] [facility] [address] Performing Lab: [facility] [place] [address] [address] [facility] [place] [facility] TSH THYROTROPIN [UNITS/VOLU ME] IN SERUM OR PLASMA 0.08 u[IU]/ mL 0.35 - 5.00 12/26 L Specimen Type: SERUM No comment entered. Ordering Provider: MANOLO DIAZ Report Released Date/Time: Dec 27, 2023 03:31 PM Reporting Lab: [facility] [address] [address] Performing Lab: [facility] [address] [address] [facility] BASIC METABOLIC PANEL (non-fast ing) UREA NITROGEN [MASS/VOLUM E] IN SERUM OR PLASMA 12 mg/dL 7 - 25 05/25 Specimen Type: SERUM No comment entered. Ordering Provider: MANOLO DIAZ Report Released Date/Time: May 14, 2022 02:20 PM Reporting Lab: [address] [address] Performing Lab: [address] [address] [facility] BASIC METABOLIC PANEL (non-fast ing) GLUCOSE [MASS/VOLUM E] IN SERUM OR PLASMA 99 mg/dL 65 - 100 05/25 Specimen Type: SERUM No comment entered. Ordering Provider: MANOLO DIAZ Report Released Date/Time: May 14, 2022 02:20 PM Reporting Lab: [facility] [address] [address] Performing Lab: [facility] [address] [address] [facility] BASIC METABOLIC PANEL (non-fast ing) SODIUM [MOLES/VOLU ME] IN SERUM OR PLASMA 140 mmol/L 135 - 145 05/25 Specimen Type: SERUM No comment entered. Ordering Provider: MANOLO DIAZ Report Released Date/Time: May 14, 2022 02:20 PM Reporting Lab: [facility] [address] [address] Performing Lab: [facility] [address] [address] [facility]ITALRRIVERVIEW REGIONAL MEDICAL CENTERN [facility]ITALUSE [facility] BASIC METABOLIC PANEL (non-fast ing) POTASSIUM [MOLES/VOLU ME] IN SERUM OR PLASMA 4.2 mmol/L 3.5 - 5.0 05/25 Specimen Type: SERUM No comment entered. Ordering Provider: MANOLO DIAZ Report Released Date/Time: May 14, 2022 02:20 PM Reporting Lab: [facility]ITALRRIVERVIEW REGION[facility] MEDICAL CENTERN [facility]OSPITALUSEWMC[facility]ALTH [address] [facility] [facility] [address] Performing Lab: [facility]ITALRRIVERVIEW REGIONAL MEDICAL CENTERN [facility]OSPITALUSE[address] [address] [facility]ITALUSE [facility] BASIC METABOLIC PANEL (non-fast ing) CHLORIDE [MOLES/VOLU ME] IN SERUM OR PLASMA 106 mmol/L 100 - 110 05/25 Specimen Type: SERUM No comment entered. Ordering Provider: MANOLO DIAZ Report Released Date/Time: May 14, 2022 02:20 PM Reporting Lab: [facility]ITALUSE[address] [address] Performing Lab: [facility]ITALRRIVERV[facility]ENTERN [facility]PITALUSE[address] [address] [facility] BASIC METABOLIC PANEL (non-fast ing) CARBON DIOXIDE, TOTAL [MOLES/VOLU ME] IN SERUM OR PLASMA 23 meq/L 20 - 30 05/25 Specimen Type: SERUM No comment entered. Ordering Provider: MANOLO DIAZ Report Released Date/Time: May 14, 2022 02:20 PM Reporting Lab: [facility]ITALRST[facility] CLAIRTRN [facility]ITALUSEWMCHEALTH [address] [address] Performing Lab: [facility]PITALRST[facility] CLAIRTRN [facility]ITALUSE[address] [address] [facility] BASIC METABOLIC PANEL (non-fast ing) CREATININE [MASS/VOLUM E] IN SERUM OR PLASMA 1.03 mg/dL 0.50 - 1.40 05/25 Specimen Type: SERUM No comment entered. Ordering Provider: MANOLO DIAZ Report Released Date/Time: May 14, 2022 02:20 PM Reporting Lab: [facility] [place] [facility] [address] [address] Performing Lab: [facility] [place] [facility] [address] [address] [facility] [place] [facility] BASIC METABOLIC PANEL (non-fast ing) GLOMERULAR FILTRATION RATE/1.73 SQ M.PREDICTED [VOLUME RATE/AREA] IN SERUM, PLASMA OR BLOOD BY CREATININE- BASED FORMULA (CKD-EPI) 75 mL/min 60 05/25 Specimen Type: SERUM No comment entered. Ordering Provider: MANOLO DIAZ Report Released Date/Time: May 14, 2022 02:20 PM Reporting Lab: [facility] [place] [facility] [address] [address] Performing Lab: [place] [facility] [place] [address] [address] [facility]ITALRL [facility] [place] [facility] LIPID PANEL FASTING CHOLESTEROL [MASS/VOLUM E] IN SERUM OR PLASMA 128 mg/dL 7 - 199 05/25 Specimen Type: SERUM No comment entered. Ordering Provider: MANOLO DIAZ Report Released Date/Time: May 14, 2022 02:20 PM Reporting Lab: [facility] [place] [facility] [address] [address] Performing Lab: [facility] [place] [facility] [address] [address] [facility] [place] [facility] LIPID PANEL FASTING TRIGLYCERID E [MASS/VOLUM E] IN SERUM OR PLASMA 72 mg/dL 0 - 150 05/25 Specimen Type: SERUM No comment entered. Ordering Provider: MANOLO DIAZ Report Released Date/Time: May 14, 2022 02:20 PM Reporting Lab: [facility] [place] [facility] [address] [address] Performing Lab: [facility] [place] [address] [address] [place] [facility] [place] [facility] LIPID PANEL FASTING CHOLESTEROL IN LDL [MASS/VOLUM E] IN SERUM OR PLASMA BY CALCULATION 71 mg/dL 0 - 129 05/25 Specimen Type: SERUM No comment entered. Ordering Provider: MANOLO DIAZ Report Released Date/Time: May 14, 2022 02:20 PM Reporting Lab: [facility]IRTRN [facility]ITALUSE[address] [address] Performing Lab: [facility] TRN [facility]ITALUSE[address] [address] [facility]RL [facility] LIPID PANEL FASTING CHOLESTEROL .TOTAL/CHOL ESTEROL IN HDL [MASS RATIO] IN SERUM OR PLASMA 3.0 05/25 Specimen Type: SERUM No comment entered. Ordering Provider: MANOLO DIAZ Report Released Date/Time: May 14, 2022 02:20 PM Reporting Lab: [facility]RST[facility] CLAIRTRN [address] [address] Performing Lab: [facility]ITALRST[facility] CLAIRTRN [facility]ITALUSE[address] [address] [facility] LIPID PANEL FASTING CHOLESTEROL IN HDL [MASS/VOLUM E] IN SERUM OR PLASMA 43 mg/dL 40 - 60 05/25 Specimen Type: SERUM No comment entered. Ordering Provider: MANOLO DIAZ Report Released Date/Time: May 14, 2022 02:20 PM Reporting Lab: [facility] [address] Performing Lab: [facility]ITAL[facility] TRN [facility]ITALUSE[address] [address] [facility]OSPITALRRIVERVIEW REGIONAL MEDICAL CENTERN [facility]ITALUSE [facility] THYROID T4 FREE(FT4) THYROXINE (T4) FREE [MASS/VOLUM E] IN SERUM OR PLASMA 1.43 ng/dL 0.6 - 1.6 05/25 Specimen Type: SERUM No comment entered. Ordering Provider: MANOLO DIAZ Report Released Date/Time: May 14, 2022 02:20 PM Reporting Lab: [facility]RST[facility] CLAIRTRN [facility]ITALUSE[address] [address] Performing Lab: [facility] [place] [facility] [address] [facility] [address] [facility] [place] [facility] TSH THYROTROPIN [UNITS/VOLU ME] IN SERUM OR PLASMA < 0.06u[ IU]/mL 0.35 - 5.00 05/25 Specimen Type: SERUM No comment entered. Ordering Provider: MANOLO DIAZ Report Released Date/Time: May 14, 2022 02:20 PM Reporting Lab: [facility] [place] [facility] [address] [address] Performing Lab: [facility] [place] [facility] [address] [address] [facility] [place] [facility] Vital Signs Combined list of inpatient and outpatient Vital Signs from Department of Defense and Veterans Affairs, ranging from 12 months to all on record, depending upon the facility. Vital Sign Value Date Comments Source SYSTOLIC BLOOD PRESSURE 132 01/10/20 24 13:41:12 [facility] [place] [facility] DIASTOLIC BLOOD PRESSURE 78 024 13:41:12 [facility] [place] [facility] PULSE 55 01/10/2024 13:41:12 [facility] [place] [facility] SYSTOLIC BLOOD PRESSURE 180 12/27/19 24 14:56:45 [facility] [place] [facility] DIASTOLIC BLOOD PRESSURE 92 024 14:56:45 [facility] [place] [facility] PULSE OXIMETRY 98 12/27/2023 14:56:45 [facility] [place] [facility] WEIGHT 232 12/27/2023 14:56:45 [facility] [place] [facility] BMI 31kg/m2 12/27/2023 14:56:45 [facility] [place] [facility] PAIN 2 12/27/2023 14:56:45 [facility] [place] [facility] HEIGHT 73 12/27/2023 14:56:45 [facility] [place] [facility] TEMPERATURE 98.1 12/27/2023 14:56:45 [facility] [place] [facility] PULSE 68 12/27/2023 14:56:45 [facility] [place] [facility] RESPIRATION 20 12/27/2023 14:56:45 [facility] [place] [facility] Encounters Combined list of: 1) Encounters from Department of Veterans Affairs facilities going back up to thelast 18 months. 2) Encounters from the Department of Defense facilities going back up to 280 months. Location Location Details Encounter Type Encounter Number Reason For Visit Attending Provider ADM Date DC Date Status Disposition Source [facility] [place] [facility] En[facility] [id number] 08/28 [facility] [place] [facility] [place] En[facility] [id number] 10/24 [facility] [place] [place] En[facility] [id number] 10/24 [facility] [place] [facility] [facility] [place] En[facility] [id number] 10/30 [facility] [place] [facility] [facility] [place] En[facility] [id number] 11/19 [facility] [place] [facility] [facility] [place] En[facility] [id number] 12/24 [facility] [place] [facility] [place] OFFICE O/P EST MOD 30-39 MIN [id number] Diagnos is: ICD-10- CM D48.5 Neoplas m of uncerta in behavio r of skin
GABRIELLA ALVARADO 01/01 [facility] [place] [facility] [place] En[facility] [id number] BOWIE MD 01/07 [facility] [place] [place] Encounter [id number] Diagnos is: ICD-10- CM Z02.89 Encount er for other adminis trative examina tions<b r/> ASHLEY MUELLER A 01/24 [facility] [place] [place] Encounter [id number] Diagnos is: ICD-10- CM Z02.89 Encount er for other adminis trative examina tions<b r/> ASHLEY MUELLER A 03/14 [facility] [place] [place] [place] [id number] Diagnos is: ICD-10- CM H40.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
DOMINIC ALBRECHT 03/25 [facility] [place] [place] FIT SPECTACLES MULTIFOCAL [id number] Diagnos is: ICD-10- CM Z46.0 Encount er for fit/adj st of spectac les and contact lenses< br/> DOMINIC ALBRECHT 03/26 [facility] [place] [place] Encounter [id number] TAYLOR PORRAS ISTOPHER E 05/13 [facility] [place] [place] Encounter [id number] 05/14 [facility] [place] [facility] [facility] [place] En[facility] [id number] 05/15 [facility] [place] [facility] [place] [facility] Outpatient Encounter [id number] Diagnos is: ICD-10- CM Z02.89 Encount er for other adminis trative examina tions<b r/> ELIJAHEmiliaMICHAEL KARLCODYAIYANA Bedolla 07/03 [facility] [place] [facility] [place] [facility] OFFICE O/P EST MOD 30 MIN [id number] Diagnos is: ICD-10- CM Z86.018 Persona l history of other benign neoplas m
GABRIELLA ALVARADO 12/25 [facility] [place] [facility] [place] [facility] OFFICE O/P EST MOD 30 MIN [id number] Diagnos is: ICD-10- CM I48.91 Unspeci fied atrial fibrill ation<b r/> Terri DIAZ 12/26 [facility] [place] [place] [facility] [place] [facility] OFF/OP EST MAY X REQ PHY/QHP [id number]. Diagnos is: ICD-10- CM H61.23 Impacte d cerumeyudy , bilraquel al
NIRMAL TOM 01/09 [facility] [place] [facility] [place] [facility] Outpatient Encounter [id number] [id number] [facility] [place] [facility] Social History Combined list of available smoking, tobacco, and other social history from Department of Defense and Veterans Affairs facilities. Social History Type Response Date Comment Sour e Tobacco smoking status [facility] VA-TOBACCO QUIT 15 YRS OR MORE 12/27/2023 [facility] [place] [facility] History of tobacco use VA-TOBACCO FORMER USER 12/27/2023 [facility] [place] [facility] History of tobacco use VA-TOBACCO NEVER USED 05/25/2022 [facility] [place] [place] [facility] History of tobacco use NE-TOBACCO QUIT 15 YRS OR MORE 05/19/2021 [facility] [place] [facility] History of tobacco use NE-TOBACCO FORMER USER 03/24/2020 [facility] [place] [facility] History of tobacco use QUIT TOBACCO USE > 7 YEARS AGO 09/17/2017 [facility] Plan of Care List of future care activities from Department of [facility] Affairs facilities. Additional future care activities may be listed in the Assessment and Plan section. Date/Time Care Activity Care Activity Detail Facili ty 02/20/2024 AMBULATORY - MEDICINE AM[facility]ULAT[facility] [place] [facility] 03/27/2024 AMBULATORY - MEDICINE AMBULATORY - [facility] [place] [facility] 12/27/2023 Consult Order COMMUNITY CARE-P ULMONARY Cons Town Justice's Choice [facility]
--- OUTSIDE RECORDS SUMMARY | 2024-01-29 23:04 | XMS_ITS ---
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 This section includes the names of all active insurance providers for the patient. Insurance Provider Type of Coverage Plan Name Start of Policy Coverage End of Policy Coverage Group Number Member ID Insurance Provider's Telephone Number Policy Cardenas's Name Patient's Relationship to Policy Cardenas [place] [employer] [facility] E Mar 21, 2011 [id number] Katlyn BELLO PATIENT [place] [employer] [facility] E Mar 21, 2011 [id number] Katlyn BELLO PATIENT MEDICARE (WN) MEDICARE (M) PART A Dec 19, 2008 PART A [id number] Katlyn BELLO PATIENT MEDICARE (WN) MEDICARE (M) PART B Dec 19, 2008 PART B [id number] Katlyn BELLO PATIENT Selected Encounter This section includes the [place] at [place] for the Encounter. Date/Time Encounter Type Encounter Description Reason Provider Source Jan 10, 2024 01:00 PM OFF/OP EST JUNE X REQ PHY/QHP PRIMARY CARE/MEDICINE ICD-10-CM H61.23 Impacted cerumen, bilateral ZANVETTOR,YUNI [facility] Encounter Template Text not used by [place] Assessments - Encounter Diagnoses This section includes the primary and secondary diagnoses documented for the Encounter. Date/Time Primary/Secondary Diagnosis Diagnosis Name Provider Source Jan 10, 2024 01:44 PM PRIMARY Impacted cerumen, bilateral ZANVETTOR,YUNI [facility] Plan of Treatment: Future Appointments (+ 6 months) and Future Tests (+/- 45 days) The Plan of Treatment section includes future care activities for the patient from all [place] [facility]. This section includes future appointments and future orders which are active, pending or scheduled. Future Appointments This section includes appointments that were scheduled to occur 6 months from the date of the Encounter, up to a maximum of 20 appointments. The data comes from all [place] treatment facilities. Appointment Date/Time Appointment Type Appointme nt Facility Name Feb 20, 2024 04:40 PM AMBULATORY - MEDICINE [facility] Mar 27, 2024 10:30 AM AMBULATORY - MEDICINE [facility] Active, Pending, and Scheduled Orders This section includes a listing of several types of active, pending, and scheduled orders, including clinic medications orders, diagnostic test orders, procedure orders and consult orders; where the start date of the order is 45 days before the date of the Encounter or 45 days after the date of theEncounter. The data comes from all [place] treatment facilities. Test Date/Time Test Type Test Details Facility Name Dec 27, 2023 03:28 PM Consult Order COMMUNITY CARE-PULMONARY Cons Pulmonary Function Technician's Choice [facility] Lab Results: +/- 30 days of the encounter This section includes the Chemistry and Hematology Lab Results on record with [place] for the patient. Radiology Reports and Pathology Reports are provided separately, in subsequent sections. Lab Results This section contains the Chemistry/Hematology Results that were resulted 30 days before or 30 daysafter the date of the Encounter. Date/Time Source Result Type Result - Unit Interpretation Reference Range Comment Dec 27, 2023 03:37 PM [facility] TSH Specimen Type: SERUM No comment entered. Ordering Provider: KISHA DIAZ AM Report Released Date/Time: Dec 27, 2023 03:31 PM Reporting Lab: [address] [address] Performing Lab: [address] [address] TSH 0.08 u[IU]/mL L 0.35-5.00 Dec 27, 2023 03:37 PM [facility] HEMOGLOBIN A1C PANEL Specimen Type: BLOOD [...] Dec 27, 2023 03:31 PM Reporting Lab: [address] [address] Performing Lab: [address] [address] HEMOGLOBIN A1C 5.2 4.0-5.6 Dec 27, 2023 03:37 PM [facility] CBC Specimen Type: BLOOD No comment entered. Ordering Provider: KISHA DIAZ AM Report Released Date/Time: Dec 27, 2023 03:31 PM Reporting Lab: [address] [address] Performing Lab: [address] [address] WBC 7.94 10*3/uL 4.50-11.00 RBC 4.90 10*6/uL 4.23-5.66 HGB 14.7 g/dL 12.8-17 HCT 43.5 39.2-50.4 MCV 88.8 fL 82-99 MCHC 33.8 g/dL 30.8-35.1 PLT 263 10*3/uL 140-360 RDW-CV 13.2 12.0-16.0 MCH 30.0 pg 26.2-32.6 Dec 27, 2023 03:37 PM [facility] BASIC METABOLIC PANEL (non-fasting) Specimen Type: SERUM No comment entered. Ordering Provider: KISHA DIAZ AM Report Released Date/Time: Dec 27, 2023 03:31 PM Reporting Lab: [address] [address] Performing Lab: [address] [address] UREA NITROGEN 17 mg/dL 7-25 GLUCOSE 89 mg/dL 65-100 SODIUM 140 mmol/L 135-145 POTASSIUM 4.0 mmol/L 3.5-5.0 CHLORIDE 107 mmol/L 100-110 CO2 23 meq/L 20-30 CREATININE, Serum 0.96 mg/dL 0.50-1.40 eGFR(CKD-EPI 2020) 81 mL/min >60 Dec 27, 2023 03:37 PM [facility] LIVER FUNCTION Specimen Type: SERUM No comment entered. Ordering Provider: KISHA DIAZ AM Report Released Date/Time: Dec 27, 2023 03:31 PM Reporting Lab: [address] [address] Performing Lab: [address] [address] PROTEIN,TOTAL 6.4 g/dL 6.0-8.3 ALBUMIN 3.8 g/dL 3.5-5.0 ALKALINE PHOSPHATASE 56 U/L 40-150 AST 18 U/L 5-34 ALT 15 U/L BILIRUBIN, TOTAL 0.6 mg/dL 0.2-1.2 Dec 27, 2023 03:37 PM [facility] LIPID PANEL, NON FASTING Specimen Type: SERUM No comment entered. Ordering Provider: KISHA DIAZ AM Report Released Date/Time: Dec 27, 2023 03:31 PM Reporting Lab: [address] [address] Performing Lab: [address] [address] CHOLESTEROL 153 mg/dL TRIGLYCERIDE 105 mg/dL 0-150 LDL calculated 86 mg/dL 0-129 CHOL/HDL 3.3 HDL CHOLESTEROL 46 mg/dL 40-60 Vital Signs: All taken on the encounter date This section contains inpatient and outpatient Vital Signs collected on the date of the Encounter. Date/Time Temperature Pulse Blood Pressure Respiratory Rate SP02 Pain Height Weight Body Mass Index Source Jan 10, 2024 01:41 PM 55 132/78 [place] [facility] [place] [facility] Social History: Smoking Status (Most current) and Tobacco Use (All prior to encounter date) This section includes the most current, and the historical, smoking and tobacco- related health factors from the [place] facility where the Encounter took place. Current Smoking Status This section includes the most current smoking, or tobacco-related health factor, from the [place] facility where the Encounter took place. Date/Time Current Smoking Status Comment Facil ity Dec 27, 2023 03:00 PM [place]AC[place] [facility] Tobacco Use History This section includes a history of the smoking, or tobacco-related health factors, that were collected on or before the date of the Encounter. The data comes from the [place] facility where the Encounter took place. Date/Time Smoking Status/Tobacco Use Comment F acility Dec 27, 2023 03:00 PM VA-TOBACCO QUIT 15 YRS OR MORE [place] [facility] [place] [facility] May 25, 2022 01:30 PM VA-TOBACCO NEVER USED [place] [facility] [place] [facility] May 19, 2021 02:00 PM VA-TOBACCO FORMER USER [place] [facility] [place] [facility] May 19, 2021 02:00 PM VA-TOBACCO QUIT 15 YRS OR MORE [facility] [place] [facility] Mar 24, 2020 08:36 AM VA-TOBACCO FORMER USER [facility] [place] [facility] Mar 24, 2020 08:36 AM VA-TOBACCO QUIT 15 YRS OR MORE [facility] [place] [facility] Sep 17, 2017 02:25 PM QUIT TOBACCO USE > 7 YEARS AGO [place] [facility] [place] [facility] Encounter Notes: All associated encounter notes This section contains the clinical notes associated to the Encounter. Date/Time Encounter Note(s) Provider Source Jan 10, 2024 01:13 [facility] LOCAL TITLE: AMBULATORY/OUTPATIENT CARE NOTE STANDARD TITLE: PRIMARY CARE OUTPATIENT NOTE DATE OF NOTE: JAN 10, 2024@13:13 ENTRY DATE: JAN 10, 2024@13:13:06 AUTHOR: JOANA TOM COSIGNER: URGENCY: STATUS: COMPLETED F: Nursing Visit D/A: Vet presents to primary care for ear irrigation per PCP. Vet has been using debrox drops for 5 days. On exam bilateral canals impacted with cerumen. Procedure explained to Vet, bilateral canals irrigated with warm tap water via syringe. Vet tolerated procedure well, reports improved hearing. Post exam with bilateral canals clear TMs visible. R: Vet left clinic ad ailyn PTSD Screening: PC-PTSD-5 A PTSD screening test (PC-PTSD-5) was negative (score=1). IN THE PAST MONTH, have you ever had any experience that was so frightening, horrible or traumatic. For example: A serious accident or fire a physical or sexual assault or abuse An earthquake or flood A war Seeing someone be killed or seriously injured Having a loved one through homicide or suicide 1. Have you ever experienced this kind of event? YES 2. Had nightmares about the event(s) or thought about the event(s) when you did not want to? NO 3. Tried hard not to think about the event(s) or went out of your way to avoid situations that reminded you of the event(s)? NO 4. Been constantly on guard, watchful, or easily startled? YES 5. [place] numb or detached from people, activities, or your surroundings? NO 6. [place] guilty or unable to stop blaming yourself or others for the event(s) or any problems the event(s) may have caused? NO Eye Care At-Risk Screen : Patient identified to be at risk for the following eye condition(s): GLAUCOMA: Glaucoma Risk Factors Information: Encounter Diagnosis: 03/25/2023@14:00 H40.013 (ICD-10-CM) Open Angle with Borderline Findings, low Risk, Bilateral rank: SECONDARY Prov. Narr. - Glaucoma Suspect,Low Risk,Bilateral Action: Patient has a future eye care appointment scheduled within the next 90 days. Date of Appointment: [facility] Mar [facility] with [facility]/ Joana QUICK RN CNL Primary Care RN Signed: 01/10/2024 13:44 JOANA TOM [facility]
--- OUTSIDE RECORDS SUMMARY | 2024-01-29 23:04 | XMS_ITS | Encounter Summary ---
Author Name [facility] [place] Address [address] [place] [id number] Care Team Providers Care Exhaust Emissions Inspector Name Role Phone RUBA MELCHOR Primary Care Provider [facility] Insurance Providers: All historical and current Section Date Range: From patient's date of to the date document was created. This section includes the names of all active insurance providers for the patient. Insurance Provider Type of Coverage Plan Name Start of Policy Coverage End of Policy Coverage Group Number Member ID Insurance Provider's Telephone Number Policy Cardenas's Name Patient's Relationship to Policy Cardenas [facility] MEDICARE SUPPLEMEN VEL MEDEX BRONZ E Mar 21, 2011 [id number] [facility] MEDICARE SUPPLEMEN VEL MEDEX BRONZ E Mar 21, 2011 [id number] Katlyn BELLO PATIENT MEDICARE (WNR) MEDICARE (M) PART A Dec 19, 2008 PART A [id number] Katlyn BELLO PATIENT MEDICARE (WNR) MEDICARE (M) PART B Dec 19, 2008 PART B [id number] Katlyn BELLO PATIENT Selected Encounter This section includes the information on record at [place] for the Encounter. Date/Time Encounter Type Encounter Description Reason Provider Source Dec 27, 2023 03:00 PM OFFICE O/P EST MOD 30 MIN PRIMARY CARE/MEDICINE ICD-10-CM I48.91 Unspecified atrial fibrillation MELCHOR,WILL TALI J IHE Encounter Template Text not used by [place] Assessments - Encounter Diagnoses This section includes the primary and secondary diagnoses documented for the Encounter. Date/Time Primary/Secondary Diagnosis Diagnosis Name Provider Source Jan 09, 2024 04:55 PM PRIMARY Unspecified atrial fibrillation MELCHOR,WILL TALI J [facility] Jan 09, 2024 04:55 PM SECONDARY Chronic obstructive pulmonary disease, unspecified MELCHOR,WILL TALI Debbie [facility] Plan of Treatment: Future Appointments (+ 6 months) and Future Tests (+/- 45 days) The Plan of Treatment section includes future care activities for the patient from all [place] [facility] This section includes future appointments and future orders which are active, pending or scheduled. Future Appointments This section includes appointments that were scheduled to occur 6 months from the date of the Encounter, up to a maximum of 20 appointments. The data comes from all [facility]. Appointment Date/Time Appointment Type Appointme nt Facility Name Jan 10, 2024 01:00 PM AMBULATORY - MEDICINE [facility] Feb 20, 2024 04:40 PM AMBULATORY - MEDICINE [facility] Mar 27, 2024 10:30 AM AMBULATORY - MEDICINE [facility] Active, Pending, and Scheduled Orders This section includes a listing of several types of active, pending, and scheduled orders, including clinic medications orders, diagnostic test orders, procedure orders and consult orders; where the start date of the order is 45 days before the date of the Encounter or 45 days after the date of theEncounter. The data comes from all [facility]. Test Date/Time Test Type Test Details Facility Name Dec 27, 2023 03:28 PM Consult Order COMMUNITY CARE-PULMONARY Cons Grades 1 Thru 6 Home Teacher's Choice [facility] Lab Results: +/- 30 days of the encounter This section includes the Chemistry and Hematology Lab Results on record with [place] for the patient. Radiology Reports and Pathology Reports are provided separately, in subsequent sections. Lab Results This section contains the Chemistry/Hematology Results that were resulted 30 days before or 30 daysafter the date of the Encounter. Date/Time Source Result Type Result - Unit Interpretation Reference Range Comment Dec 27, 2023 03:37 PM [facility] TSH Specimen Type: SERUM No comment entered. Ordering Provider: KISHA MELCHOR AM Report Released Date/Time: Dec 27, 2023 03:31 PM Reporting Lab: [facility] [address] [facility] [address] Performing Lab: [facility] [address] [facility] [address] TSH 0.08 u[IU]/mL L 0.35-5.00 Dec 27, 2023 03:37 PM [facility] HEMOGLOBIN A1C PANEL Specimen Type: BLOOD Comment: Values obtained from A1C measurements can vary. For atypical A1C assays, a reported value of 7.0 could actually be between 6.72 and 7.28 if measured by a reference method. A reported value of 9.0 could actually be between 8.73 and 9.27. Ref: http://www.ngs p.org/CAPdata. asp Ordering Provider: KISHA MELCHOR AM Report Released Date/Time: Dec 27, 2023 03:31 PM Reporting Lab: [facility] [address] [facility] [address] Performing Lab: [address] [address] HEMOGLOBIN A1C 5.2 4.0-5.6 Dec 27, 2023 03:37 PM [facility] CBC Specimen Type: BLOOD No comment entered. Ordering Provider: KISHA MELCHOR AM Report Released Date/Time: Dec 27, 2023 03:31 PM Reporting Lab: [facility] [address] [facility] [address] Performing Lab: [address] [address] WBC 7.94 10*3/uL 4.50-11.00 RBC 4.90 10*6/uL 4.23-5.66 HGB 14.7 g/dL 12.8-17 HCT 43.5 39.2-50.4 MCV 88.8 fL 82-99 MCHC 33.8 g/dL 30.8-35.1 PLT 263 10*3/uL 140-360 RDW-CV 13.2 12.0-16.0 MCH 30.0 pg 26.2-32.6 Dec 27, 2023 03:37 PM [facility] BASIC METABOLIC PANEL (non-fasting) Specimen Type: SERUM No comment entered. Ordering Provider: KISHA MELCHOR AM Report Released Date/Time: Dec 27, 2023 03:31 PM Reporting Lab: [address] [address] Performing Lab: [address] [address] UREA NITROGEN 17 mg/dL 7-25 GLUCOSE 89 mg/dL 65-100 SODIUM 140 mmol/L 135-145 POTASSIUM 4.0 mmol/L 3.5-5.0 CHLORIDE 107 mmol/L 100-110 CO2 23 meq/L 20-30 CREATININE, Serum 0.96 mg/dL 0.50-1.40 eGFR(CKD-EPI 2020) 81 mL/min >60 Dec 27, 2023 03:37 PM [facility] LIVER FUNCTION Specimen Type: SERUM No comment entered. Ordering Provider: KISHA MELCHOR AM Report Released Date/Time: Dec 27, 2023 03:31 PM Reporting Lab: [address] [address] Performing Lab: [address] [address] PROTEIN,TOTAL 6.4 g/dL 6.0-8.3 ALBUMIN 3.8 g/dL 3.5-5.0 ALKALINE PHOSPHATASE 56 U/L 40-150 AST 18 U/L 5-34 ALT 15 U/L BILIRUBIN, TOTAL 0.6 mg/dL 0.2-1.2 Dec 27, 2023 03:37 PM [facility] LIPID PANEL, NON FASTING Specimen Type: SERUM No comment entered. Ordering Provider: KISHA MELCHOR AM Report Released Date/Time: Dec 27, 2023 03:31 PM Reporting Lab: [facility] [place] [facility] [address] [facility] [address] Performing Lab: [place] [facility] [place] [facility] [address] [facility] [address] CHOLESTEROL 153 mg/dL TRIGLYCERIDE 105 mg/dL 0-150 LDL calculated 86 mg/dL 0-129 CHOL/HDL 3.3 HDL CHOLESTEROL 46 mg/dL 40-60 Vital Signs: All taken on the encounter date This section contains inpatient and outpatient Vital Signs collected on the date of the Encounter. Date/Time Temperature Pulse Blood Pressure Respiratory Rate SP02 Pain Height Weight Body Mass Index Source Dec 27, 2023 02:56 PM 98.1 68 180/92 20 98 2 73 232 31 [place] [facility] [place] [facility] Social History: Smoking Status (Most current) and Tobacco Use (All prior to encounter date) This section includes the most current, and the historical, smoking and tobacco- related health factors from the [place] facility where the Encounter took place. Current Smoking Status This section includes the most current smoking, or tobacco-related health factor, from the [place] facility where the Encounter took place. Date/Time Current Smoking Status Comment Facil ity Dec 27, 2023 03:00 PM VA-TOBACCO FORMER USER [place] [facility] [place] [facility] Tobacco Use History This section includes a history of the smoking, or tobacco-related health factors, that were collected on or before the date of the Encounter. The data comes from the [place] facility where the Encounter took place. Date/Time Smoking Status/Tobacco Use Comment F acility Dec 27, 2023 03:00 PM VA-TOBACCO QUIT 15 YRS OR MORE [facility] [place] [facility] May 25, 2022 01:30 PM VA-TOBACCO NEVER USED [facility] [place] [facility] May 19, 2021 02:00 PM VA-TOBACCO FORMER USER [facility] [place] [facility] May 19, 2021 02:00 PM VA-TOBACCO QUIT 15 YRS OR MORE [facility] [place] [facility] Mar 24, 2020 08:36 AM VA-TOBACCO FORMER USER [facility] [place] [facility] Mar 24, 2020 08:36 AM VA-TOBACCO QUIT 15 YRS OR MORE [place] [facility] [place] [facility] Sep 17, 2017 02:25 PM QUIT TOBACCO USE > 7 YEARS AGO [facility] Encounter Notes: All associated encounter notes This section contains the clinical notes associated to the Encounter. Date/Time Encounter Note(s) Provider Source Dec 27, 2023 03:32 PM PRIMARY CARE NURSE PRACTITIONER OUTPATIENT NOTE: LOCAL TITLE: NURSE PRACTITIONER OUTPATIENT NOTE STANDARD TITLE: PRIMARY CARE NURSE PRACTITIONER OUTPATIENT NOTE DATE OF NOTE: DEC 27, 2023@15:32 ENTRY DATE: DEC 27, 2023@15:32:45 AUTHOR: RUBA MELCHOR COSIGNER: URGENCY: STATUS: COMPLETED Chief complaint: Patient is a 78 year old [place]. HPI: Pleasant male [place] here to follow up. Comes yearly. Follows with: PCP - Dr Locke endocrine - Dr Morel pulm - Dr Hardwick, [facility] [place] Allergies: Patient has answered NKA The following VA and Non-VA meds were reconciled with patient. The patient was educated on the use of the medications including indication and side effects. Active and Recently Outpatient Medications (excluding Supplies): Active Outpatient Medications Status 1) LUBRICATING [...] (ANORO) INHL,ORAL BY ACTIVE MOUTH 6) Non-VA VPEIUDUNDEAQ38.5/VILANTERO L25MCG 30D INH 1 ACTIVE INHALATION BY MOUTH ONCE DAILY 7 Total Medications Review of Systems: Constitutional: (-)for Fevers, chills, weakness, nights sweats On examination: 98.1 F [36.7 C] (12/27/2023 14:56)180/92 (12/27/2023 14:56)68 (12/27/2023 14:56)20 (12/27/2023 14:56)2 (12/27/2023 14:56)BMI: 30.7232 lb [105.23 kg] (12/27/2023 14:56) is alert and oriented X3 Cardiovasc: 2plus carotids without bruits, no JVD Heart Reguler rate and rhythm NL S1S2 no S3 or murmur Respiration: Normal respiratory effort, lungs clear ABD: Benign normal active bowel sounds no HSM no rebound or referred pain EXT: no clubbing, edema, or cyanosis All diagnostics from past month were reviewed with patient. Assessment/plan: Active problems - Computerized Problem List is the source for the followin. AF - Atrial Fibrillation ([facility] [id number]) - rate controlled 2. COPD - Chronic Obstructive Pulmonary Disease - follows non va Health Care Maintenance: declines flu and covid Review of medial record = 5mins Time spent with Patient including shared decision making = 20 mins Post visit documentation = 5mins Total time = 30 mins Follow up visit in 12 mos. Follow-Up Pos PTSD/Depression: I have reviewed the results of the Mental Health screens and have evaluated the patient. Based on the evaluation, the following disposition plan will be implemented: No further intervention is needed at this time. Contact information and instructions for accessing emergency services provided. Medication Reconciliation: Outpatient: Has the patient been taking medications as documented in the EMLR? YES: The patient has been taking medications as documented in the EMLR. Essential Medication List for Review used to complete this medication reconciliation. INCLUDED IN THIS LIST: Alphabetical list of active outpatient prescriptions dispensed from this [place] (local) and dispensed from another [place] or [facility]D facility (remote) as well as [...] whether with a VA or non-VA provider. /renetta/ Ruba Melchor DNP, SUPERVISOR INSPECTING-BC, CNL Primary Care Nurse Practitioner Signed: 12/27/2023 15:40 RUBA MELCHOR [place] [facility] [place] [facility] Dec 27, 2023 03:03 PM PREVENTIVE MEDICINE NURSING NOTE: LOCAL TITLE: CLINICAL REMINDERS/NURSING STANDARD TITLE: PREVENTIVE MEDICINE NURSING NOTE DATE OF NOTE: DEC 27, 2023@15:03 ENTRY DATE: DEC 27, 2023@15:03:21 AUTHOR: SY SARABIA COSIGNER: URGENCY: STATUS: COMPLETED Advance Directive Screen MH AD: Patient does not have an Advance Directive completed and is requesting more information. A consult was sent to Social Work Services at this visit so that an appointment can be made with the patient to review the advance directive. The patient received education about Advance Directives and written notification of his/her rights. Suicide Screen: C-SSRS Screening [place]-Suicide Severity Rating Scale (C-SSRS Screener) 1. Over the past month, have you wished you were or wished you could go to sleep and not wake up? No 2. Over the past month, have you had any actual thoughts of killing yourself? No 3. Over the past month, have you been thinking about how you might do this? Response not required due to responses to other questions. 4. Over the past month, have you had these thoughts and had some intention of acting on them? Response not required due to responses to other questions. 5. Over the past month, have you started to work out or worked out the details of how to kill yourself? Response not required due to responses to other questions. 6. If yes, at any time in the past month did you intend to carry out this plan? Response not required due to responses to other questions. 7. In your lifetime, have you ever done anything, started to do anything, or prepared to do anything to end your life (for example, collected pills, obtained a gun, gave away valuables, went to the roof but didn't jump)? No 8. If YES, was this within the past 3 months? Response not required due to responses to other questions. Homelessness/Food Insecurity Screen: In the past 2 months, have you been living in stable housing that you own, rent, or stay in as part of a household? Yes - Living in stable housing. Are you worried or concerned that in the next 2 months you may NOT have stable housing that you own, rent, or stay in as part of a household? No - Not worried about housing near future The [place] reports the following: Within the past 12 months, you worried whether your food would run out before you got money to buy more. Never true Within the past 12 months, the food you bought just didn't last and you didn't have money to get more. Never true Depression Screening: Perform PHQ-2 A PHQ-2 screen was performed. The score was 4 which is a positive screen for depression. Over the past two weeks, how often have you been bothered by the following problems? 1. Little interest or pleasure in doing things More than half the days 2. Feeling down, depressed, or hopeless More than half the days Licensed Independent Provider notified of positive screen and need for follow-up. Name of provider notified: ruba melchor Falls & Incontinence Screen: Falls Screen: During the past 12 months, did the patient report any falls? 4. No falls within the past year. Incontinence Screen: During the past 12 months, has the patient has any characteristics of incontinence (ability, voiding, leakage, etc.)? No incontinence. Tobacco Use Screening: The patient is a former tobacco user. The patient quit fifteen or more years ago. Alcohol Use Screen (AUDIT-C): Alcohol Screen: SCREEN FOR ALCOHOL (AUDIT-C) An alcohol screening test (AUDIT-C) was negative (score=0). 1. How often did you have a drink containing alcohol in the past year? Consider a drink to be a 12 ounce can or bottle of regular beer, 8 ounces of malt liquor, a 5 ounce glass of table wine, or a 1.5 ounce shot of liquor (like scotch, gin, or vodka). Never 2. How many drinks containing alcohol did you have on a typical day when you were drinking in the past year? Response not required due to responses to other questions. 3. How often did you have six or more drinks on one occasion in the past year? Response not required due to responses to other questions. RHS Screen: RHS Screen Session Format: Face to Face Environmental Check Upon inquiry, the individual reports that the environment is safe to proceed. Informed Consent to Screen and Document The individual consents to proceed with screening. The individual consents to documentation of responses. PRIMARY SCREEN: In the past 12 months, how often did a current or former intimate partner (e.g., boyfriend, girlfriend, , , sexual partner): 1. Scream or curse at you Never 2. Insult or talk down to you Never 3. Threaten you with harm Never 4. Physically hurt you Never 5. Force or pressure you to have sexual contact against your will, or when you were unable to say no Never ?? The HITS tool (items 1-4 above) is [place] copyright protected by Leo Sarmiento MD, and the user has full rights to use it throughout the [place] system. PRIMARY SCREEN RESULT: The Primary Screen is NEGATIVE. The individual answered never to all forms of IPV above (i.e., answered never to all 5 items) The individual accepts education and/or resources: No EDUCATION: Other: not interested at this time /renetta/ Sy Sarabia [facility] Mold Shifter FOLLOW UP REP,PRIMARY CARE Signed: 12/27/2023 15:07 SY SARABIA [place] [facility]
--- OUTSIDE RECORDS SUMMARY | 2024-01-29 23:04 | XMS_ITS | Encounter Summary ---
Author Name [facility] [place] Address [address] [place] [address] Care Team Providers Care Ductfixing Plumber Name Role Phone TERRIE DIAZ Primary Care [...] Cardenas's Name Patient's Relationship to Policy Cardenas [facility] MEDICARE SUPPLEMEN VLE MEDEX BRONZ E Mar 21, 2011 [id number] [phone] Katlyn BELLO PATIENT [facility] MEDICARE SUPPLEMEN VEL MEDEX BRONZ E Mar 21, 2011 [id number] Katlyn BELLO PATIENT MEDICARE (WNR) MEDICARE (M) PART A Dec 19, 2008 PART A [id number] Katlyn BELLO PATIENT MEDICARE (WNR) MEDICARE (M) PART B Dec 19, 2008 PART B [id number] Katlyn BELLO PATIENT Selected Encounter This section includes the information on record at [place] for the Encounter. Date/Time Encounter Type Encounter Description Reason Pro vider Source May 16, 2023 01:35 PM Outpatient Encounter PRIMARY CARE/MEDICINE IHE Encounter Template Text not used by [place] Plan of Treatment: Future Appointments (+ 6 months) and Future Tests (+/- 45 days) The Plan of Treatment section includes future care activities for the [facility] [place] [facility] This section includes future appointments and future orders which are active, pending or scheduled. Future Appointments This section includes appointments that were scheduled to occur 6 months from the date of the Encounter, up to a maximum of 20 appointments. The data comes from all [place] treatment facilities. Appointment Date/Time Appointment Type Appointme nt Facility Name July 04, 2023 05:00 PM AMBULATORY - MEDICINE [facility] Social History: Smoking Status (Most current) and Tobacco Use (All prior to encounter date) This section includes the most current, and the historical, smoking and tobacco- related health factors from the [place] facility where the Encounter took place. Current Smoking Status This section includes the most current smoking, or tobacco-related health factor, from the [place] facility where the Encounter took place. Date/Time Current Smoking Status Comment Edwin greenwood May 25, 2022 01:30 PM [facility] Tobacco Use History This section includes a history of the smoking, or tobacco-related health factors, that were collected on or before the date of the Encounter. The data comes from the [place] facility where the Encounter took place. Date/Time Smoking Status/Tobacco Use Comment F acility May 19, 2021 02:00 PM VA-TOBACCO FORMER USER [place] [facility] [place] [facility] May 19, 2021 02:00 PM VA-TOBACCO QUIT 15 YRS OR MORE [place] [facility] [place] [facility] Mar 24, 2020 08:36 AM VA-TOBACCO FORMER USER [place] [facility] [place] [facility] Mar 24, 2020 08:36 AM VA-TOBACCO QUIT 15 YRS OR MORE [place] [facility] [place] [facility] Sep 17, 2017 02:25 PM QUIT TOBACCO USE > 7 YEARS AGO [facility] Encounter Notes: All associated encounter notes This section contains the clinical notes associated to the Encounter. Date/Time Encounter Note(s) Provider Source May 16, 2023 01:35 PM NURSING NOTE: LOCAL TITLE: NURSING/TELEPHONE STANDARD TITLE: NURSING NOTE DATE OF NOTE: MAY 16, 2023@13:35 ENTRY DATE: MAY 16, 2023@13:35:26 AUTHOR: SY SARABIA EXP COSIGNER: URGENCY: STATUS: COMPLETED vet was called, a message was left on the answering machine, inform vet he has an appt with PCP on 05-22-2022@[id number],also labs have been ordered,any questions vet mayuse the call back # from message. /renetta/ Sy Sarabia, Health Ergonomist SUPPLY TECH,PRIMARY CARE Signed: 05/16/2023 13:37 SY SARABIA [place] [facility] [place] [facility]
--- OUTSIDE RECORDS SUMMARY | 2024-01-29 23:04 | XMS_ITS | Encounter Summary ---
Author Name [facility] [place] Address [address] [place] [address] Care Team Providers Care Cable Weaver Name Role Phone TERRIE DIAZ Primary Care [...] Cardenas's Name Patient's Relationship to Policy Cardenas [facility] MEDICARE SUPPLEMEN VEL MEDEX BRONZ E Mar 21, 2011 [id number] Katlyn BELLO PATIENT [facility] MEDICARE SUPPLEMEN VEL MEDEX BRONZ E Mar 21, 2011 [id number] Katlyn BELLO PATIENT MEDICARE (WNR) MEDICARE (M) PART A Dec 19, 2008 PART A [id number] Katlyn BELLO PATIENT MEDICARE (WNR) MEDICARE (M) PART B Dec 19, 2008 PART B [id number] Katlyn BELLO PATIENT Selected Encounter This section includes the information on record at [place] for the Encounter. Date/Time Encounter Type Encounter Description Reason Pro vider Source Jan 10, 2024 02:01 PM Outpatient Encounter PRIMARY CARE/MEDICINE IHE Encounter Template Text not used by [place] Plan of Treatment: Future Appointments (+ 6 months) and Future Tests (+/- 45 days) The Plan of Treatment section includes future care activities for the patient from all [place] [facility]. This section includes future appointments and future orders which are active, pending or scheduled. Future Appointments This section includes appointments that were scheduled to occur 6 months from the date of the Encounter, up to a maximum of 20 appointments. The data comes from all [place] treatment facilities. Appointment Date/Time Appointment Type Appointme nt Facility Name Feb 20, 2024 04:40 PM AMBULATORY - MEDICINE [facility] Mar 27, 2024 10:30 AM [facility] Active, Pending, and Scheduled Orders This section includes a listing of several types of active, pending, and scheduled orders, including clinic medications orders, diagnostic test orders, procedure orders and consult orders; where the start date of the order is 45 days before the date of the Encounter or 45 days after the date of theEncounter. The data comes from all [facility] facilities. Test Date/Time Test Type Test Details Facility Name Dec 27, 2023 03:28 PM Consult Order COMMUNITY CARE-PULMONARY Cons Measurement Operator's Choice [facility] Lab Results: +/- 30 days of the encounter This section includes the Chemistry and Hematology Lab Results on record with [place] for the patient. Radiology Reports and Pathology Reports are provided separately, in subsequent sections. Lab Results This section contains the Chemistry/Hematology Results that were resulted 30 days before or 30 daysafter the date of the Encounter. Date/Time Source Result Type Result - Unit Interpretation Reference Range Comment Dec 27, 2023 03:37 PM [facility] TSH Specimen Type: SERUM No comment entered. Ordering Provider: KISHA DIAZ AM Report Released Date/Time: Dec 27, 2023 03:31 PM Reporting Lab: [facility] [address] [facility] [address] Performing Lab: [address] [address] TSH 0.08 u[IU]/mL L 0.35-5.00 Dec 27, 2023 03:37 PM [facility] HEMOGLOBIN A1C PANEL Specimen Type: BLOOD [...] Dec 27, 2023 03:31 PM Reporting Lab: [address] [address] Performing Lab: [address] [address] HEMOGLOBIN A1C 5.2 4.0-5.6 Dec 27, 2023 03:37 PM [facility] CBC Specimen Type: BLOOD No comment entered. Ordering Provider: KISHA DIAZ AM Report Released Date/Time: Dec 27, 2023 03:31 PM Reporting Lab: [address] [address] Performing Lab: [address] [address] WBC 7.94 10*3/uL 4.50-11.00 RBC 4.90 10*6/uL 4.23-5.66 HGB 14.7 g/dL 12.8-17 HCT 43.5 39.2-50.4 MCV 88.8 fL 82-99 MCHC 33.8 g/dL 30.8-35.1 PLT 263 10*3/uL 140-360 RDW-CV 13.2 12.0-16.0 MCH 30.0 pg 26.2-32.6 Dec 27, 2023 03:37 PM [facility] BASIC METABOLIC PANEL (non-fasting) Specimen Type: SERUM No comment entered. Ordering Provider: KISHA DIAZ AM Report Released Date/Time: Dec 27, 2023 03:31 PM Reporting Lab: [address] [address] Performing Lab: [facility] [address] [facility] [address] UREA NITROGEN 17 mg/dL 7-25 GLUCOSE 89 mg/dL 65-100 SODIUM 140 mmol/L 135-145 POTASSIUM 4.0 mmol/L 3.5-5.0 CHLORIDE 107 mmol/L 100-110 CO2 23 meq/L 20-30 CREATININE, Serum 0.96 mg/dL 0.50-1.40 eGFR(CKD-EPI 2020) 81 mL/min >60 Dec 27, 2023 03:37 PM [facility] LIVER FUNCTION Specimen Type: SERUM No comment entered. Ordering Provider: KISHA DIAZ AM Report Released Date/Time: Dec 27, 2023 03:31 PM Reporting Lab: [address] [address] Performing Lab: [address] [address] PROTEIN,TOTAL 6.4 g/dL 6.0-8.3 ALBUMIN 3.8 g/dL 3.5-5.0 ALKALINE PHOSPHATASE 56 U/L 40-150 AST 18 U/L 5-34 ALT 15 U/L BILIRUBIN, TOTAL 0.6 mg/dL 0.2-1.2 Dec 27, 2023 03:37 PM [facility] LIPID PANEL, NON FASTING Specimen Type: SERUM No comment entered. Ordering Provider: KISHA DIAZ AM Report Released Date/Time: Dec 27, 2023 03:31 PM Reporting Lab: [address] [address] Performing Lab: [address] [address] CHOLESTEROL 153 mg/dL TRIGLYCERIDE 105 mg/dL 0-150 [...] Jan 10, 2024 01:41 PM 55 132/78 [facility] Social History: Smoking Status (Most current) and Tobacco Use (All prior to encounter date) This section includes the most current, and the historical, smoking and tobacco- related health factors from the [place] facility where the Encounter took place. Current Smoking Status This section includes the most current smoking, or tobacco-related health factor, from the [place] facility where the Encounter took place. Date/Time Current Smoking Status Comment Edwin ity Dec 27, 2023 03:00 PM VA-[place]BACCO FOR[facility]ER [place] [facility] Tobacco Use History This section includes a history of the smoking, or tobacco-related health factors, that were collected on or before the date of the Encounter. The data comes from the [place] facility where the Encounter took place. Date/Time Smoking Status/Tobacco Use Comment Yuki acdarian Dec 27, 2023 03:00 PM VA-TOBACCO QUIT 15 YRS OR MORE [place] [facility] [place] May 25, 2022 01:30 PM VA-TOBACCO NEVER USED [place] [facility] [place] May 19, 2021 02:00 PM VA-TOBACCO FORMER USER [place] [facility] [place] May 19, 2021 02:00 PM VA-TOBACCO QUIT 15 YRS OR MORE [place] [facility] [place] Mar 24, 2020 08:36 AM VA-TOBACCO FORMER USER [place] [facility] [place] Mar 24, 2020 08:36 AM VA-TOBACCO QUIT 15 YRS OR MORE [place] [facility] [place] Sep 17, 2017 02:25 PM QUIT TOBACCO USE > 7 YEARS AGO [place] [facility] [place] [facility] Encounter Notes: All associated encounter notes This section contains the clinical notes associated to the Encounter. Date/Time Encounter Note(s) Provider Source Jan 10, 2024 02:01 PM ADMINISTRATIVE NOTE: LOCAL TITLE: FAX/MAIL RECEIVED STANDARD TITLE: ADMINISTRATIVE NOTE DATE OF NOTE: JAN 10, 2024@14:01 ENTRY DATE: JAN 10, 2024@14:01:33 AUTHOR: IRA SUTTON COSIGNER: URGENCY: STATUS: COMPLETED Document Received On: Dec Document Type: Lab Results Date of Service: Dec Facility and or Provider: [facility] Contact Information: PCP of Record: TERRIE DIAZ Next visit with PCP: 03/27/2024 10:30 NHM/OPT/VISUAL IMAGING 03/27/2024 11:00 NHM/OPTOMETRY/[place]I 12/24/2024 10:30 CWM/NO/DERMATOLOGY INFORMATION ARCHITECT AM 12/25/2024 13:00 CWM/NO/PACT 7 Primary Care May keep copies of this document for up to 14 days and send the original for scanning. /renetta/ IRA SUTTON TINO Signed: 01/10/2024 14:02 IRA SUTTON [facility]
--- OUTSIDE RECORDS SUMMARY | 2024-01-29 23:04 | XMS_ITS | Encounter Summary ---
Author Name [facility] [place] Address [address] [place] [address] Care Team Providers Care Dental Hygiene Instructor Name Role Phone TERRIE DIAZ Primary Care [...] Cardenas's Name Patient's Relationship to Policy Cardenas [facility] MEDICARE SUPPLEMEN VEL MEDEX BRONZ E Mar 21, 2011 [id number] Katlyn BELLO PATIENT [facility] MEDICARE SUPPLEMEN VEL MEDEX BRONZ E Mar 21, 2011 [id number] Katlyn BELLO PATIENT MEDICARE (WN) MEDICARE (M) PART A Dec 19, 2008 PART A [id number] Katlyn BELLO PATIENT MEDICARE (WN) MEDICARE (M) PART B Dec 19, 2008 PART B [id number] Katlyn BELLO PATIENT Selected Encounter This section includes the information on record at [place] for the Encounter. Date/Time Encounter Type Encounter Description Reason Provider Source May 14, 2023 07:04 PM Outpatient Encounter PRIMARY CARE/MEDICINE BRANDON PORRAS Eddy Encounter Template Text not used by [place] Plan of Treatment: Future Appointments (+ 6 months) and Future Tests (+/- 45 days) The Plan of Treatment section includes future care activities for the patient from all [place] [facility]. This section includes future appointments and [...] 04, 2023 05:00 PM AMBULATORY - MEDICINE [facility] Social History: Smoking Status (Most current) [...] Date/Time Current Smoking Status Comment Edwin ity May 25, 2022 01:30 PM [facility]ACCO [facility] Tobacco Use History This section includes a history of the smoking, or tobacco-related health factors, that were collected on or before the date of the Encounter. The data comes from the [place] facility where the Encounter took place. Date/Time Smoking Status/Tobacco Use Comment F acility May 19, 2021 02:00 PM VA-TOBACCO FORMER USER [place] [facility] [place] [facility] May 19, 2021 02:00 PM VA-TOBACCO QUIT 15 YRS OR MORE [place] [facility] [place] [facility] Mar 24, 2020 08:36 AM VA-TOBACCO FORMER USER [place] [facility] [facility] Mar 24, 2020 08:36 AM VA-TOBACCO QUIT 15 YRS OR MORE [place] [facility] [place] [facility] Sep 17, 2017 02:25 PM QUIT TOBACCO USE > [address] [facility] Encounter Notes: All associated encounter notes This section contains the clinical notes associated to the Encounter. Date/Time Encounter Note(s) Provider Source May 27, 2023 07:14 AM PRIMARY CARE SECUR E MESSAGING: LOCAL TITLE: PRIMARY CARE SECURE MESSAGING STANDARD TITLE: PRIMARY CARE SECURE MESSAGING DATE OF NOTE: MAY 27, 2023@07:14 ENTRY DATE: MAY 27, 2023@08:14:11 AUTHOR: LUIS PORRAS EXP COSIGNER: URGENCY: STATUS: COMPLETED ------Original Message -------- Sent: 05/15/2023 09:28 AM ET From: CIARA BELLO To: Terri DIAZ_[facility] Subject: General:General Inquiry I had the Covid vaccine (Moderna [id number]) on 2020 and May 11, 2020. Not interested in getting any additional vaccines including the Flu vaccine. Ciara Bello ------Original Message -------- Sent: 05/25/2023 05:25 PM ET From: CIARA BELLO To: Terri DIAZ_[facility] Subject: General:General Inquiry No I have not had the FLU/Covid or RSV vaccines outside the [place] this [place] and I do not plan on getting them Ciara Bello /renetta/ LUIS PORRAS LPN Signed: 05/27/2023 08:14 LUIS PORRAS [place] [facility] [place] [facility] May 14, 2023 07:04 PM PRIMARY CARE SECUR E MESSAGING: [facility] TITLE: PRIMARY CARE SECURE MESSAGING STANDARD TITLE: PRIMARY CARE SECURE MESSAGING DATE OF NOTE: MAY 14, 2023@19:04 ENTRY DATE: MAY 14, 2023@20:04:50 AUTHOR: LUIS PORRAS EXP COSIGNER: URGENCY: STATUS: COMPLETED ------Original Message -------- Sent: 05/14/2023 08:04 PM ET From: LUIS PORRAS To: CIARA BELLO Subject: General:General Inquiry Please let us know if you have had the FLU,COVID< or RSV vaccines outside the [place] this [place]. Please provide dates and locations along with vaccines, . Please let us know if you do not wish to receive any of these vaccines as well. Thank you for your service /es/ LUIS PORRAS LPN Signed: 05/14/2023 20:04 LUIS PORRAS [place] [facility]
--- OUTSIDE RECORDS SUMMARY | 2024-01-29 23:04 | XMS_ITS ---
Author Name [place] Address [address] [place] [id number] Care Team Providers Care Mill Work Name Role Phone TERRIE DIAZ Primary Care [...] Cardenas's Name Patient's Relationship to Policy Cardenas [facility] MEDICARE SUPPLEMEN VEL MEDEX BRONZ E Mar 21, 2011 [id number] Katlyn BELLO PATIENT [facility] MEDICARE SUPPLEMEN VEL MEDEX BRONZ E Mar 21, 2011 [id number] [phone] Katlyn BELLO PATIENT MEDICARE (WN) MEDICARE (M) PART A Dec 19, 2008 PART A [id number] Katlyn BELLO PATIENT MEDICARE ([facility]) MEDICARE (M) PART B Dec 19, 2008 PART B [id number] Katlyn BELLO PATIENT Selected Encounter This section includes the information on record at [place] for the Encounter. Date/Time Encounter Type Encounter Description Reason Provider Source Mar 26, 2023 11:52 AM FIT SPECTACLES MULTIFOCAL OPTOMETRY ICD-10-CM Z46.0 Encounter for fit/adjst of spectacles and contact lenses SABINA ALBRECHT Encounter Template Text not used by CT Assessments - Encounter Diagnoses This section includes the primary and secondary diagnoses documented for the Encounter. Date/Time Primary/Secondary Diagnosis Diagnosis Name Provider Source Mar 26, 2023 11:52 AM PRIMARY Encounter for fit/adjst of spectacles and contact lenses DEBBIE GONZALEZ [facility] Plan of Treatment: Future Appointments (+ 6 months) and Future Tests (+/- 45 days) The Plan of Treatment section includes future care activities for the patient from all [place] treatmentfacilities. This section includes future appointments and future orders which are active, pending or scheduled. Future Appointments This section includes appointments that were scheduled to occur 6 months from the date of the Encounter, up to a maximum of 20 appointments. The data comes from all [place] treatment facilities. Appointment Date/Time Appointment Type Appointme nt Facility Name July 04, 2023 05:00 PM AMBULATORY - MEDICINE [facility] Social History: Smoking Status (Most current) and Tobacco Use (All prior to encounter date) This section includes the most current, and the historical, smoking and tobacco- related health factors from the [place] facility where the Encounter took place. Current Smoking Status This section includes the most current smoking, or tobacco-related health factor, from the [place] facility where the Encounter took place. Date/Time Current Smoking Status Comment Facil ity May 25, 2022 01:30 PM VA-TOBACCO [facility] USED [facility] Tobacco Use History This section includes a history of the smoking, or tobacco-related health factors, that were collected on or before the date of the Encounter. The data comes from the [place] facility where the Encounter took place. Date/Time Smoking Status/Tobacco Use Comment F acility May 19, 2021 02:00 PM VA-TOBACCO FORMER USER [place] [facility] [place] [place] [facility] May 19, 2021 02:00 PM VA-TOBACCO QUIT [address] [facility] [place] [facility] Mar 24, 2020 08:36 AM VA-TOBACCO [facility] [place] [facility] Mar 24, 2020 08:36 AM VA-TOBACCO QUIT [address] [facility] [place] [facility] Sep 17, 2017 02:25 PM QUIT TOBACCO USE > 7 YEARS AGO [facility] Encounter Notes: All associated encounter notes This section contains the clinical notes associated to the Encounter. Date/Time Encounter Note(s) Provider Source Mar 26, 2023 11:52 AM OPTOMETRY NOTE: LOCAL TITLE: OPTOMETRY NOTE STANDARD TITLE: OPTOMETRY NOTE DATE OF NOTE: MAR 26, 2023@11:52 ENTRY DATE: MAR 26, 2023@11:52:38 AUTHOR: BEAR PIMENTEL EXP COSIGNER: URGENCY: STATUS: COMPLETED OPTOMETRY NOTE Has ADDENDA prog The quote provided below is for informational purposes only. Please verify prior to the creation of a purchase order. CIARA BELLO [id number] RX INFORMATION OD +2.50 -2.00 X85 Add:+2.50 Pzm:0.00 Dir: Prz2:0.00 Dir2: OS +2.75 -2.25 X85 Add:+2.50 Pzm:0.00 Dir: Prz2:0.00 Dir2: FITTING INFORMATION FPD: NPD:-3 [place]:R:33.5 L:34.0 SEG HT:R:25 L:25 Tint:None Shade:None VA Billable Items FRAME: CLEARMONT STANTON [id number] Right Lens: POLY VA PROGRESSIVE 1.586 POLY Left Lens: POLY [place] PROGRESSIVE 1.586 POLY KLEAR ANTI-REFLECTIVE COATING /renetta/ BEAR PIMENTEL LEAD NITRATE PROCESSOR Signed: 03/26/2023 11:52 Receipt Acknowledged By: 03/26/2023 16:37 /renetta/ DEBBIE [facility] 03/26/2023 ADDENDUM STATUS: COMPLETED PDS guest service manager fit 1 PAL eyeglasses on 03/25/2023. OPT HT entered consult(s) as requested for provider signature. /renetta/ DEBBIE [facility] Signed: 03/26/2023 16:38 BEAR PIMENTEL [facility]
--- OUTSIDE RECORDS SUMMARY | 2024-01-29 23:04 | XMS_ITS ---
Author Name [facility] [place] [facility] [place] Address [address] [place] [address] Care Team Providers Care Job Training Supervisor Name Role Phone TERRIE DIAZ Primary Care [...] Member ID Insurance Provider's Telephone Number Policy Carednas's Name Patient's Relationship to Policy Cardenas [facility] MEDICARE SUPPLEMEN VEL MEDEX BRONZ E Mar 21, 2011 [id number] Katlyn BELLO PATIENT [facility] MEDICARE SUPPLEMEN VEL MEDEX BRONZ E Mar 21, 2011 [id number] Katlyn BELLO PATIENT MEDICARE (WN) MEDICARE (M) PART A Dec 19, 2008 PART A [id number] Katlyn BELLO PATIENT MEDICARE (WNR) MEDICARE (M) PART B Dec 19, 2008 PART B [id number] Katlyn BELLO PATIENT Selected Encounter This section includes the information on [place] at [place] for the Encounter. Date/Time Encounter Type Encounter Description Reason Provider Source Mar 14, 2023 08:00 AM Outpatient Encounter GENERAL INTERNAL MEDICINE ICD-10-CM Z02.89 Encounter for other administrative examinations KARIN ARCOS [facility] Encounter Template Text not used by [place] Assessments - Encounter Diagnoses This section includes the primary and secondary diagnoses documented for the Encounter. Date/Time Primary/Secondary Diagnosis Diagnosis Name Provider Source Mar 14, 2023 10:29 AM PRIMARY Encounter for other administrative examinations KARIN ARCOS [facility] Plan of Treatment: Future Appointments (+ 6 months) and Future Tests (+/- 45 days) The Plan of Treatment section includes future care activities for the patient from all [place] [facility]. This section includes future appointments and future orders which are active, pending or scheduled. Future Appointments This section includes appointments that were scheduled to occur 6 months from the date of the Encounter, up to a maximum of 20 appointments. The data comes from all [place] treatment facilities. Appointment Date/Time Appointment Type Appointme nt Facility Name Mar 25, 2023 02:00 PM AMBULATORY - MEDICINE [facility] July 04, 2023 05:00 PM AMBULATORY - MEDICINE [facility] Social History: Smoking Status (Most current) [...] Edwin greenwood May 25, 2022 01:30 PM [place] NEVER USED [facility] Tobacco Use History This section includes a history of the smoking, or tobacco-related health factors, that were collected on or before the date of the Encounter. The data comes from the [place] facility where the Encounter took place. Date/Time Smoking Status/Tobacco Use Comment F acility May 19, 2021 02:00 PM [place]-TOBACCO FORMER USER [facility] May 19, 2021 02:00 PM VA-TOBACCO QUIT 15 YRS OR MORE [facility] Mar 24, 2020 08:36 AM [facility]AC[facility] Mar 24, 2020 08:36 AM VA-TOBACCO QUIT 15 YRS OR MORE [facility] Sep 17, 2017 02:25 PM QUIT TOBACCO USE > 7 YEARS AGO [facility] Encounter Notes: All associated encounter notes This section contains the clinical notes associated to the Encounter. Date/Time Encounter Note(s) Provider Source Mar 14, 2023 08:00 AM C & P EXAMINATION NOTE: LOCAL TITLE: COMPENSATION AND PENSION EXAM STANDARD TITLE: C & P EXAMINATION NOTE DATE OF NOTE: MAR 14, 2023@08:00 ENTRY DATE: MAR 14, 2023@10:27:49 AUTHOR: SHANNEN ARCOS EXP COSIGNER: URGENCY: STATUS: COMPLETED Thyroid and Parathyroid Conditions Disability Benefits Questionnaire Name of patient/: CIARA BELLO ([id number]) Is this DBQ being completed in conjunction with a [place] [id number], C&P Examination Request? [X] Yes [ ] No How was the examination completed? (check all that apply) [ ] In-person examination [X] Records reviewed [ ] Examination via approved video telehealth [ ] Other, please specify in comments box Comments: * 02/21/2023 's Claim for higher level of review for: papillary thyroid carcinoma, status post radical thyroidectomy with residual hypothyroidism. MARYA and Evidence Review Indicate method used to obtain medical information to complete this document: [X] Review of available records (without in-person or video telehealth examination) using the Acceptable Clinical Evidence (MARYA) process because the existing medical evidence provided sufficient information on which to prepare the questionnaire and such an examination will likely provide no additional relevant evidence. Evidence Review Evidence reviewed (check all that apply): [X] [place] electronic [place] [X] [place] e[place] [X] Other, please specify in comments box VBMS, JLV, VISTAIMAGING, CPRS DD214 NOTES [place] SERVICE Aug - Aug Evidence Comments: * 02/28/2023 VBA RATING DECISION: - Evidence shows that you performed service in [place]. Service personnel records confirm [place] service from August 31, 1969 to August 30, 1970. >..conceded exposure to herbicides during service. * 01/23/2023 VBA RATING DECISION: - Service connection for vocal chord paralysis is denied. * 12/25/2022 VBA RATING DECISION: - Service connection for metastatic carcinoma to the trachea is denied. 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 Secondary service connection is only possible if the primary cancer is a service connected disorder. ..not found to be service connected for thyroid cancer, therefore, we cannot consider the metastasis from this cancer to your trachea. An examination and/or medical opinion based on toxic exposure risk activity (TRUPTI) was not requested because the evidence shows your disability has a known etiology as it is due to your thyroid cancer, and the [place] has determined there is no indication of association between the primary condition (thyroid cancer) and participation in a TRUPTI. There is no competent medical or scientific evidence of an association between your claimed disability and in-service TRUPTI. * 03/09/2022 VBA RATING DECISION: The claim for service connection for papillary thyroid carcinoma S/P radical thyroidectomy with residual hypothyroidism remains denied. * 01/31/2007 VBA RATING DECISION: Service connection for papillary thyroid cancer is denied. Service connection for papillary thyroid cancer is denied since this condition neither occurred in nor was caused by service. 1. Diagnosis a. Does the have or has he or she ever had a thyroid or parathyroid condition? (This is the condition the [facility] is claiming or for which an exam has been requested) [X] Yes [ ] No b. 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 Medical history a. Describe the history (including onset and course) of the 's thyroid and/or parathyroid condition (brief summary): LAST C&P 12/13/2020 REVIEW OF AVAILABLE MEDICAL EVIDENCE: * 2023 DERM NOTE: Current medications: levothyroxine daily * 05/25/2022 PRIMARY CARE NOTE: Neck: supple without masses, trachea midline, ln not palpable, no thyromegaly. Weight 234 lbs. TOXIC EXPOSURE SCREENING: believes exposure to Agent Sparta: Concern: Thyroid Cancer * 11/21/2020 PRIVATE RECORDS: PAST MEDICAL HISTORY Past medical history significant for thyroid cancer status post excision. * 10/24/2017 PRIMARY CARE NOTE: Papillary thyroid carcinoma - THYROIDECTOMY 2006, [place], maintains ultrasound survellience, on levo. Weight 233 lbs. * 04/13/2016 PRIVATE RECORDS: Seen for follow-up of papillary thyroid carcinoma. He continues therapy for post-thyroidectomy with levothyroxine daily with an extra tablet per month which had previously achieved what I felt was a desirable TSH of slightly less than 0.1. He notes cold intolerance which has worsened. He has no other complaints suggestive of hypothyroidism or thyrotoxicosis. Continues to manifest a mildly elevated serum thyroglobulin likely indicative of persistent but microscopic papillary thyroid carcinoma perhaps in soft tissue at the site of his invasive cancer into his trachea and esophagus or indicative ot lymph node metastases which is not identifiable on ultrasound examination. I explained that such disease often remains indolent and of no clinical significance. * 09/25/2006 PRIVATE RECORDS: He is now hospitalized for adjuvant therapy with radioactive iodine to lower the risk of macroscopic recurrenence of his papillary thyroid cancer. * 07/31/2006 Private Records: invasive and metastatic papillary thyroid carcinoma. HISTORY: He does not smoke cigarettes and does not drink alcohol. He has no past history of head or neck irradiation. His family history if remarkable for hypothyroidism in his mother. There is no known family history of thyroid cancer. His father of prostate cancer. EXAM: weight 216 lbs, height 190.5 cm. He has a hoarse voice. * 07/01/2006 OPERATIVE REPORT: The recurrent laryngeal nerve appeared to be preserved for this part of the case, however, the substernal node when it was pulled up into the field could be seen to be completely surrounding the recurrent larngeal nerve as it came up from the subclavian artery. This was palpable. We could not preserve it. * 05/31/2006 PRIVATE RECORDS: Pt unaware of any neck mass. He subsequently underwent needle core biopsy on the 24 of May...diagnosis of papillary cancer confirmed. He has not had any symptoms. * 08/30/1970 DATE OF SEPARATION FROM ACTIVE DUTY PER DD214 STR SEPARATION MEDICAL EXAMINATION: Medical: normal neck. weight 190.5 pounds, height 75 inches. * August 30 1970 end date of [place] Service per DD214 * August 31 1969 start date of [employer] Service per DD214 * 07/15/1969 STR MEDICAL HISTORY: Are you being treated or have you been treated for any of the following diseases? Thyroid Disease NO * 01/19/1969 DATE OF ENTRY TO ACTIVE DUTY PER DD214 * 10/27/1968 STR PREINDUCTION: Medical: normal neck. Self Assessment: NO goiter. b. Has the had radioactive iodine treatment for a thyroid condition? [ ] Yes [X] No c. Has the had any other type of treatment for a thyroid or parathyroid condition? [X] Yes [ ] No If yes, specify the condition and type of treatment: levothyroxine Date of treatment: daily Was a prophylactic thyroidectomy performed (based on genetic testing?) [ ] Yes [X] No If Yes, specify date of surgery: No response provided d. Does the have any residual endocrine dysfunction following treatment for thyroid or parathyroid condition? [ ] Yes [X] No 3. Thyroid: findings, signs, and symptoms a. Does the currently have any findings, signs or symptoms attributable to a thyroid condition? [ ] Yes [X] No b. Does the [facility] currently have any findings, signs or symptoms attributable to a hyperthyroid condition? [ ] Yes [X] No c. Does the currently have any findings of thyroid enlargement? [ ] Yes [X] No d. Does the [facility] currently have any findings, signs, or symptoms attributable to a hypothyroid condition? [ ] Yes [X] No e. Does the [facility] currently have a diagnosis of thyroiditis? [ ] Yes [X] No 4. Parathyroid: findings, signs, and symptoms a. Does the currently have any findings, signs, or symptoms attributable to a parathyroid condition? [ ] Yes [X] No b. Does the [facility] currently have any findings, signs, or symptoms attributable to a hyperparathyroid condition? [ ] Yes [X] No Is the condition currently asymptomatic? No response provided. Is the [facility] an individual who is not a candidate for surgery but requires continuous medication for control of a hyperparathyroid condition? No response provided. Has the [facility] undergone surgery for a hyperparathyroid condition? No response provided. As a result of hyperparathyroid dysfunction, does the currently have any of the following symptoms that occur despite surgery? No response provided. Does the now have or did the [facility] ever have hypercalcemia that meets the criteria below? No response provided. c. Does the [facility] currently have any findings, signs, or symptoms attributable to a hypoparathyroid condition? [ ] Yes [X] No 5. Physical exam a. Eyes: [X] Normal, no exophthalmos b. Neck: [X] Normal, no palpable thyroid enlargement or nodules c. Pulse: [X] Regular [ ] Irregular Heart rate: 58 d. Blood pressure: 167/80 6. Reflex exam Rate deep tendon reflexes (DTRs) according to the following scale: 0 Absent 1+ Hypoactive 2+ Normal 3+ Hyperactive without clonus 4+ Hyperactive with clonus [X] All Normal Biceps: Right: [ ] 0 [ ] 1+ [X] 2+ [ ] 3+ [ ] 4+ Left: [ ] 0 [ ] 1+ [X] 2+ [ ] 3+ [ ] 4+ Triceps: Right: [ ] 0 [ ] 1+ [X] 2+ [ ] 3+ [ ] 4+ Left: [ ] 0 [ ] 1+ [X] 2+ [ ] 3+ [ ] 4+ Brachioradialis: Right: [ ] 0 [ ] 1+ [X] 2+ [ ] 3+ [ ] 4+ Left: [ ] 0 [ ] 1+ [X] 2+ [ ] 3+ [ ] 4+ Knee: Right: [ ] 0 [ ] 1+ [X] 2+ [ ] 3+ [ ] 4+ Left: [ ] 0 [ ] 1+ [X] 2+ [ ] 3+ [ ] 4+ Ankle: Right: [ ] 0 [ ] 1+ [X] 2+ [ ] 3+ [ ] 4+ Left: [ ] 0 [ ] 1+ [X] 2+ [ ] 3+ [ ] 4+ 7. Scars or other disfigurement ----- Does the have any scars or other disfigurement (of the skin) related to any conditions or to the treatment of any conditions listed in the diagnosis section above? [X] Yes [ ] No 8. Tumors and neoplasms a. Does the have a benign or malignant neoplasm or metastases related to any of the diagnoses in the Diagnosis section? Yes If yes, complete the following: b. Is the neoplasm: Malignant [X] Remission [X] Surgery describe: 07/01/2006 RADICAL THYROIDECTOMY, RIGHT SIDE [X] Radiation Date treatment was completed or date of anticipated final treatment (surgical, antineoplastic chemotherapy, radiation, X-ray treatment, or other): 2006 c. Does the currently have any residual conditions or complications due to the neoplasm (including metastases) or its treatment, other than those already documented in the report above? [X] Yes [ ] No If yes, list residual conditions and complications (brief summary): * DYSPHONIA; speaks in a hoarse, coarse-sounding voice d. If there are additional benign or malignant neoplasms or metastases related to any of the diagnoses in the Diagnosis section, describe using the above format: N/A 9. Other pertinent physical findings, complications, conditions, signs, and symptoms a. Does the have any other pertinent physical findings, complications, conditions, signs or symptoms related to any conditions listed in the Diagnosis Section above? [ ] Yes [X] No b. Comments, if any: NO ADDITIONAL COMMENTS 10. Diagnostic testing a. Have imaging studies been performed? [ ] Yes [X] No b. Has laboratory testing been performed? [X] Yes [ ] No If yes, check all that apply and provide date of most recent test and results: [X] TSH Date: 05/25/2022 Results: <0.06 [X] Free T4 Date: 05/25/2022 (NORMAL) c. Has a biopsy been performed? [ ] Yes [X] No d. Are there any other significant diagnostic test findings and/or results? [ ] Yes [X] No 11. Functional impact Does the 's thyroid or parathyroid condition impact his or her ability to work? [X] Yes [ ] No If yes, describe impact of the [facility] thyroid and/or parathyroid condition, providing one or more examples: The [facility] can not speak for prolonged periods of time: nor can he speak in a louder tone of voice. 12. Remarks, if any: NOTE: The surgical scar is not new, there are no changes. Details regarding the scar can be found on the SCAR DBQ completed by this com writer 12/13/2020. A new scar DBQ completion is not warranted. The 's status is considered INACTIVE, most recent labs = stable findings. No new biopsy or diagnosics (besides lab work) in the available medical evidence since the last C&P exam. Questions for Historical Rating Criteria Is the [facility] date of claim or date of intent to file, if applicable, on or prior to January 26, 2017? [ ] Yes [X] No Historical 3. Findings, signs and symptoms No response provided. Historical 9. Diagnostic testing ------ No response provided. Medical Opinion Disability Benefits Questionnaire Name of patient/[facility]: CIARA BELLO ([id number]) MARYA and Evidence Review Indicate method used to obtain medical information to complete this document: [X] Review of available records (without in-person or video telehealth examination) using the Acceptable Clinical Evidence (MARYA) process because the existing medical evidence provided sufficient information on which to prepare the questionnaire and such an examination will likely provide no additional relevant evidence. Evidence Review Evidence reviewed (check all that apply): [X] [place] e[place] [X] [place] electronic health [place] [X] Other (please identify other evidence reviewed): VBMS, JLV, VISTAIMAGING, CPRS DD214 NOTES [place] SERVICE Aug - Aug Evidence Comments: * 02/28/2023 VBA RATING DECISION: - Evidence shows that you performed service in [facility]. Service personnel records confirm [employer] service from August 31, 1969 to August 30, 1970. >..conceded exposure to herbicides during service. * 01/23/2023 VBA RATING DECISION: - Service connection for vocal chord paralysis is denied. * 12/25/2022 VBA RATING DECISION: - Service connection for metastatic carcinoma to the trachea is denied. 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 Secondary service connection is only possible if the primary cancer is a service connected disorder. ..not found to be service connected for thyroid cancer, therefore, we cannot consider the metastasis from this cancer to your trachea. An examination and/or medical opinion based on toxic exposure risk activity (TRUPTI) was not requested because the evidence shows your disability has a known etiology as it is due to your thyroid cancer, and the [employer] has determined there is no indication of association between the primary condition (thyroid cancer) and participation in a TRUPTI. There is no competent medical or scientific evidence of an association between your claimed disability and in-service TRUPTI. * 03/09/2022 VBA RATING DECISION: The claim for service connection for papillary thyroid carcinoma S/P radical thyroidectomy with residual hypothyroidism remains denied. * 01/31/2007 VBA RATING DECISION: Service connection for papillary thyroid cancer is denied. Service connection for papillary thyroid cancer is denied since this condition neither occurred in nor was caused by service. MEDICAL OPINION SUMMARY RESTATEMENT OF REQUESTED OPINION: a. Opinion from general remarks: THE 2506 DATED MARCH 09, 2023 REQUESTS THE FOLLOWING TRUPTI MEDICAL OPINION: DOES THE HAVE A DIAGNOSIS OF PAPILLARY THYROID CARCINOMA, S/P RADICAL THYROIDECTOMY WITH RESIDUAL HYPOTHYROIDISM THAT IS AT LEAST LIKELY NOT(LIKELIHOOD IS AT LEAST APPROXIMATELY BALANCED OR NEARLY EQUAL, IF NOT HIGHER) CAUSED BY (THE) INDICATED TOXIC EXPOSURE RISK ACTIVITY (PER 2506 HERBICIDE EXPSOURE ) AFTER CONSIDERING THE TOTAL POTENTIAL EXPOSURE THROUGH ALL APPLICABLE MILTIARY DEPLOYMENTS OF THE AND THE SYNERGISTIC COMBINED EFFECT OF ALL TOXIC EXPOSURE RISK ACTIVITIES OF THE ? b. Indicate type of exam for which opinion has been requested: THYROID CANCER TYPE OF MEDICAL OPINION PROVIDED: [ MEDICAL OPINION FOR TOXIC EXPOSURE RISK ACTIVITIES ] b. The claimed condition was less likely than not (likelihood is less than approximately balanced or nearly equal) caused by the indicated toxic exposure risk activity(ies), after considering the total potential exposure through all applicable deployments of the [facility] and the synergistic, combined effect of all toxic exposure risk activities of the . c. Provide rationale: REVIEW OF AVAILABLE MEDICAL EVIDENCE: * 2023 DERM NOTE: Current medications: levothyroxine daily * 05/25/2022 PRIMARY CARE NOTE: Neck: supple without masses, trachea midline, ln not palpable, no thyromegaly. Weight 234 lbs. TOXIC EXPOSURE SCREENING: [facility] believes exposure to Agent [place]: Concern: Thyroid Cancer * 11/21/2020 PRIVATE RECORDS: PAST MEDICAL HISTORY Past medical history significant for thyroid cancer status post excision. * 10/24/2017 PRIMARY CARE NOTE: Papillary thyroid carcinoma - THYROIDECTOMY 2006, [place] Endocrine, maintains ultrasound survellience, on levo. Weight 233 lbs. * 04/13/2016 PRIVATE RECORDS: Seen for follow-up of papillary thyroid carcinoma. He continues therapy for post-thyroidectomy with levothyroxine daily with an extra tablet per month which had previously achieved what I felt was a desirable TSH of slightly less than 0.1. He notes cold intolerance which has worsened. He has no other complaints suggestive of hypothyroidism or thyrotoxicosis. Continues to manifest a mildly elevated serum thyroglobulin likely indicative of persistent but microscopic papillary thyroid carcinoma perhaps in soft tissue at the site of his invasive cancer into his trachea and esophagus or indicative ot lymph node metastases which is not identifiable on ultrasound examination. I explained that such disease often remains indolent and of no clinical significance. * 09/25/2006 PRIVATE RECORDS: He is now hospitalized for adjuvant therapy with radioactive iodine to lower the risk of macroscopic recurrenence of his papillary thyroid cancer. * 07/31/2006 Private Records: invasive and metastatic papillary thyroid carcinoma. HISTORY: He does not smoke cigarettes and does not drink alcohol. He has no past history of head or neck irradiation. His family history if remarkable for hypothyroidism in his mother. There is no known family history of thyroid cancer. His father of prostate cancer. EXAM: weight 216 lbs, height 190.5 cm. He has a hoarse voice. * 07/01/2006 OPERATIVE REPORT: The recurrent laryngeal nerve appeared to be preserved for this part of the case, however, the substernal node when it was pulled up into the field could be seen to be completely surrounding the recurrent larngeal nerve as it came up from the subclavian artery. This was palpable. We could not preserve it. * 05/31/2006 PRIVATE RECORDS: Pt unaware of any neck mass. He subsequently underwent needle core biopsy on the 24 of May...diagnosis of papillary cancer confirmed. He has not had any symptoms. * 08/30/1970 DATE OF SEPARATION FROM ACTIVE DUTY PER DD214 STR SEPARATION MEDICAL EXAMINATION: Medical: normal neck. weight 190.5 pounds, height 75 inches. * August 30 1970 end date of [employer] Service per DD214 * August 31 1969 start date of [employer] Service per DD214 * 07/15/1969 STR MEDICAL HISTORY: Are you being treated or have you been treated for any of the following diseases? Thyroid Disease NO * 01/19/1969 DATE OF ENTRY TO ACTIVE DUTY PER DD214 * 10/27/1968 STR PREINDUCTION: Medical: normal neck. Self Assessment: NO goiter. REVIEW OF PEER-REVIEWED MEDICAL LITERATURE: UpToDaaiyana, [employer] Angel[employer], Cancer Research, National Library of Medicine, [place] Society of Clinical Oncology (ASCO) websites accessed February 2023 RACE: white people and people are more likely to develop thyroid cancer. AGE & GENDER: thyroid cancer is more common in women than pen during their reproductive years. It peaks in women between the ages of 40 44 years. Men are more likely to develop thyroid cancer at an older age. It is most common in men aged 70 and 74. OBESITY: The risk of thyroid cancers increases with a higher BMI. FAMILY HISTORY: higher risk if close relative (parent, brother, sister son or daughter) has thyroid cancer. RADIATION: Thyroid cancer is more common in people treated with radiotherapy or CT scans of the brain, head and neck when they were a child. o Research has looked at people routinely exposed to radiation through their work. This has not shown an increase in their risk of thyroid cancer. o Strongly associated with [place] [employer] survivors, children exposed to [place] fall out Thyroid cancer may be more common in survivors of atomic explosions or accidents. IODINE: Some people have low levels of iodine, this is a higher risk of thyroid cancer if exposed to radiation. GENETICS: Some types of thyroid cancer are associated with genetics. [facility]ED [facility] INFORMATION PROVIDED IN [facility] DATED: 12/12/2022 (There is a blank Environmental Hazard Registry in [facility], per review by this com writer this date.) REVIEWED [facility] MINDY IN [facility] DATED: 12/12/2022 QUESTIONS WITH A YES ANSWER: #1 Does the qualify for presumption of exposure for the following hazards during service? Herbicide agent - SOLITARIO PULLIAMIST REQUIRED EXPOSURE RESOURCES REVIEWED AND CONSIDERED: https://www.publichealth. a.gov/exposures/agentorang e TRUPTI MEDICAL OPINION: The [facility] available STRS are silent for thyroid issues or exposure to radiation. The available STRS and medical evidence do not reveal a nexus linking thyroid cancer to active-duty service or TRUPTI. 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 The peer-reviewed medical literature notes that increased male age, increased BMI, and race are riskfactors for thyroid cancer; it does not list herbicides as a risk factor. Review of TRUPTI websites do not reveal a link of exposure qualifying as a risk factor for the development of thyroid cancer for this Veterans situation. Review of established, peer reviewed literature notes the only established occupational/environmental etiologies for thyroid cancer that have been identified are radiation/radioactive exposure. It is my medical opinion that the 's claimed condition and diagnosis of papillary thyroid carcinoma, s/p radical thyroidectomy with residual hypothyroidism is less likely as not (likelihood is less than approximately balanced or nearly equal) caused by the indicated toxic exposure risk activity ( per 2507 herbicide exposure after considering the total potential exposure through all applicable deployments of the [facility] and the synergistic, combined effect of all toxic exposure risk activities of the [facility]. /renetta/ KARIN ARCOS NURSE PRACTITIONER Signed: 03/14/2023 10:27 CODY ARCOS [facility]
--- OUTSIDE RECORDS SUMMARY | 2024-01-29 23:04 | XMS_ITS ---
Author Name [facility] [place] [place] Organization [facility] [place] Address [address] [place] [address] Care Team Providers Care Importer Exporter Name Role Phone TERRIE DIAZ Primary Care [...] Cardenas's Name Patient's Relationship to Policy Cardenas [facility] MEDICARE SUPPLEMEN VEL MEDEX BRONZ E Mar 21, 2011 [id number] Katlyn BELLO PATIENT [facility] MEDICARE SUPPLEMEN VEL MEDEX BRONZ E Mar 21, 2011 [id number] [phone] Katlyn BELLO PATIENT MEDICARE (WN) MEDICARE (M) PART A Dec 19, 2008 PART A [id number] Katlyn BELLO PATIENT MEDICARE (WNR) MEDICARE (M) PART B Dec 19, 2008 PART B [id number] Katlyn BELLO PATIENT Selected Encounter This section includes the information on record at [place] for the Encounter. Date/Time Encounter Type Encounter Description Reason Provider Source July 04, 2023 05:00 PM Outpatient Encounter GENERAL INTERNAL MEDICINE ICD-10-CM Z02.89 Encounter for other administrative examinations KARIN ARCOS [facility] Encounter Template Text not used by [place] Assessments - Encounter Diagnoses This section includes the primary and secondary diagnoses documented for the Encounter. Date/Time Primary/Secondary Diagnosis Diagnosis Name Provider Source July 04, 2023 03:15 PM PRIMARY Encounter for other administrative examinations [facility] Plan of Treatment: Future Appointments (+ 6 months) and Future Tests (+/- 45 days) The Plan of Treatment section includes future care activities for the patient from all [place] [facility]. This section includes future appointments and future orders which are active, pending or scheduled. Future Appointments This section includes appointments that were scheduled to occur 6 months from the date of the Encounter, up to a maximum of 20 appointments. The data comes from all [place] treatment facilities. Appointment Date/Time Appointment Type Appointme nt Facility Name Dec 26, 2023 09:30 AM AMBULATORY [facility]INE [facility] Dec 27, 2023 03:00 PM [facility]ICINE [facility] Social History: Smoking Status (Most current) and Tobacco Use (All prior to encounter date) This section includes the most current, and the historical, smoking and tobacco- related health factors from the [place] facility where the Encounter took place. Current Smoking Status This section includes the most current smoking, or tobacco-related health factor, from the [place] facility where the Encounter took place. Date/Time Current Smoking Status Comment Edwin ity May 25, 2022 01:30 PM DC-TOBACCO NEVER USED [facility] Tobacco Use History This section includes a history of the smoking, or tobacco-related health factors, that were collected on or before the date of the Encounter. The data comes from the [place] facility where the Encounter took place. Date/Time Smoking Status/Tobacco Use Comment F acility May 19, 2021 02:00 PM VA[facility] [place] [facility] May 19, 2021 02:00 PM VA-TOBACCO QUIT 15 YRS OR MORE [facility] Mar 24, 2020 08:36 AM [facility]AC[facility] Mar 24, 2020 08:36 AM [place]-TOBACCO QUIT 15 YRS OR MORE [facility] Sep 17, 2017 02:25 PM QUIT TOBACCO USE > 7 YEARS AGO [facility] Encounter Notes: All associated encounter notes This section contains the clinical notes associated to the Encounter. Date/Time Encounter Note(s) Provider Source July 04, 2023 05:00 PM C & P EXAMINATION NOTE: LOCAL TITLE: COMPENSATION AND PENSION EXAM STANDARD TITLE: C & P EXAMINATION NOTE DATE OF NOTE: JULY 04, 2023@17:00 ENTRY DATE: JULY 04, 2023@15:13:45 AUTHOR: SHANNEN ARCOS EXP COSIGNER: URGENCY: STATUS: COMPLETED Thyroid and Parathyroid Conditions Disability Benefits Questionnaire Name of patient/: CIARA BELLO ([id number]) Is this DBQ being completed in conjunction with a DC [id number], C&P Examination Request? [X] Yes [ ] No How was the examination completed? (check all that apply) [ ] In-person examination [X] Records reviewed [ ] Examination via approved video telehealth [ ] Other, please specify in comments box Comments: no additional comments MARYA and Evidence Review Indicate method used [...] Evidence reviewed (check all that apply): [X] [place] electronic health record [X] [place] e-folder [X] Other, please specify in comments box CPRS, JLV, VISTAIMAGING, VBMS Evidence Comments: * 04/11/2023 VBA RATING DECISION: The previous denial of service connection for papillary thyroid carcinoma, s/p radical thyroidectomy with residual hypothyroidism is confirmed and continued. 1. Diagnosis a. Does the have or has he or she ever had a thyroid or parathyroid condition? (This is the condition the is claiming or for which an exam has been requested) [X] Yes [ ] No b. Select the Dumont's Condition (Check all that apply): [X] Hypothyroidism Date of diagnosis: 2006 post thyroidectomy [X] Malignant neoplasm of the thyroid Date of diagnosis: 2006 per pathology report 2. Medical history a. Describe the history (including onset and course) of the Dumont's thyroid and/or parathyroid condition (brief summary): LAST C&P EXAM 03/14/2023 BY THIS MECHANICAL PROCESS ENGINEER: PLEASE SEE THAT DBQ FOR ADDITIONAL DETAILS REVIEW OF ADDITIONAL MEDICAL EVIDENCE SINCE 03/14/2023: * 05/14/2023 PRIVATE RECORDS: Past history of thyroidectomy. with postoperative hypothyroidism. b. Has the had radioactive iodine treatment [...] surgery: No response provided d. Does the Dumont have any residual endocrine dysfunction following treatment for thyroid or parathyroid condition? [ ] Yes [X] No 3. Thyroid: findings, signs, and symptoms a. Does the Dumont currently have any findings, signs or symptoms attributable to a thyroid condition? [ ] Yes [X] No b. Does the Dumont currently have any findings, signs or symptoms attributable to a hyperthyroid condition? [ ] Yes [X] No c. Does the currently have any findings of thyroid enlargement? [ ] Yes [X] No d. Does the Dumont currently have any findings, signs, or symptoms attributable to a hypothyroid condition? [ ] Yes [X] No e. Does the Dumont currently have a diagnosis of thyroiditis? [ ] Yes [X] No 4. Parathyroid: findings, signs, and symptoms a. Does the Dumont currently have any findings, signs, or symptoms attributable to a parathyroid condition? [ ] Yes [X] No b. Does the currently have any findings, signs, or symptoms attributable to a hyperparathyroid condition? [ ] Yes [X] No Is the condition currently asymptomatic? No response provided. Is the Dumont an individual who is not a candidate for surgery but requires continuous medication for control of a hyperparathyroid condition? No response provided. Has the Dumont undergone surgery for a hyperparathyroid condition? No response provided. As a result of hyperparathyroid dysfunction, does the Dumont currently have any of the following symptoms that occur despite surgery? No response provided. Does the Dumont now have or did the Dumont ever have hypercalcemia that meets the criteria below? No response provided. c. Does the Dumont currently have any findings, signs, or symptoms attributable to a hypoparathyroid condition? [ ] Yes [X] No 5. Physical exam a. Eyes: [X] Normal, no exophthalmos b. Neck: [X] Normal, no palpable thyroid enlargement or nodules c. Pulse: [X] Regular [ ] Irregular Heart rate: 56 d. Blood pressure: 115/62 6. Reflex exam Rate deep tendon reflexes [...] Scars or other disfigurement ----- Does the Dumont have any scars or other disfigurement (of the skin) related to any conditions or to the treatment of any conditions listed in the diagnosis section above? [X] Yes [ ] No 8. Tumors and neoplasms a. Does the Dumont have a benign or malignant neoplasm or [...] list residual conditions and complications (brief summary): DYSPHONIA d. If there are additional benign or [...] No b. Has laboratory testing been performed? [ ] Yes [X] No c. Has a biopsy been performed? [ ] Yes [X] No d. Are there any other significant diagnostic test findings and/or results? [ ] Yes [X] No 11. Functional impact Does the Dumont's thyroid or parathyroid condition impact his or her ability to work? [X] Yes [ ] No If yes, describe impact of the Dumont's thyroid and/or parathyroid condition, providing one or more examples: The Dumont can not speak for prolonged periods of time; nor can he speak in a louder tone of voice. 12. Remarks, if any: 1. The surgical scar is not new, there are not changes. Details of the scar can be found on the 12/13/2020 DBQ. A new scar DBQ is not warranted. 2. The 's status is considered INACTIVE, most recent labs in available medical evidence indicate stable findings. No new biopsy or diagnostics available since the last C&P exam in the available medical evidence. Questions for Historical Rating Criteria Is the 's date of claim or date of intent to file, if applicable, on or prior to January 26, 2017? [ ] Yes [X] No Historical 3. Findings, signs and symptoms No response provided. Historical 9. Diagnostic testing ------ No response provided. /renetta/ KARIN ARCOS NURSE PRACTITIONER Signed: 07/04/2023 15:13 CODY ARCOS [facility] [place] [facility]
--- OUTSIDE RECORDS SUMMARY | 2024-01-29 23:04 | XMS_ITS | Encounter Summary ---
Author Name Department of [place] [place] Organization [place] Address [address] [place] [address] Care Team Providers Care Billiard Table Repairer Name Role Phone TERRIE DIAZ Primary Care [...] Cardenas's Name Patient's Relationship to Policy Cardenas [facility] MEDICARE SUPPLEMEN VEL MEDEX BRONZ E Mar 21, 2011 [id number] Katlyn BELLO PATIENT [facility] MEDICARE SUPPLEMEN VEL MEDEX BRONZ E Mar 21, 2011 [id number] Katlyn BELLO PATIENT MEDICARE (WNR) MEDICARE (M) PART A Dec 19, 2008 PART A [id number] Katlyn BELLO PATIENT MEDICARE (WNR) MEDICARE (M) PART B Dec 19, 2008 PART B [id number] Katlyn BELLO PATIENT Selected Encounter This section includes the information on record at [place] for the Encounter. Date/Time Encounter Type Encounter Description Reason Pro vider Source May 15, 2023 10:58 AM Outpatient Encounter PRIMARY CARE/MEDICINE I[facility] Encounter Template Text not used by [place] Plan of Treatment: Future Appointments (+ 6 months) and Future Tests (+/- 45 days) The Plan of Treatment section includes future care activities for the patient from all [place] [facility]. This section includes future appointments and future orders which are active, pending or scheduled. Future Appointments This section includes appointments that were scheduled to occur 6 months from the date of the Encounter, up to a maximum of 20 appointments. The data comes from all [place] treatment facilities. Appointment Date/Time Appointment Type Appointme nt Facility Name July 04, 2023 05:00 PM AMBULAT[facility] Social History: Smoking Status (Most current) and Tobacco Use (All prior to encounter date) This section includes the most current, and the historical, smoking and tobacco- related health factors from the [place] facility where the Encounter took place. Current Smoking Status This section includes the most current smoking, or tobacco-related health factor, from the [place] facility where the Encounter took place. Date/Time Current Smoking Status Comment Edwin ity May 25, 2022 01:30 PM VA-TOBACCO [facility] USED [facility] Tobacco Use History This section includes a history of the smoking, or tobacco-related health factors, that were collected on or before the date of the Encounter. The data comes from the [place] facility where the Encounter took place. Date/Time Smoking Status/Tobacco Use Comment F acility May 19, 2021 02:00 PM VA-TOBACCO FORMER USER [place] [facility] [place] [facility] May 19, 2021 02:00 PM VA-TOBACCO QUIT 15 YRS OR MORE [place] [facility] [place] [facility] Mar 24, 2020 08:36 AM VA-TOBACCO FORMER USER [place] [facility] [place] [facility] Mar 24, 2020 08:36 AM VA-TOBACCO QUIT 15 YRS OR MORE [place] [facility] [place] [facility] Sep 17, 2017 02:25 PM QUIT TOBACCO USE > 7 YEARS AGO [facility] Encounter Notes: All associated encounter notes This section contains the clinical notes associated to the Encounter. Date/Time Encounter Note(s) Provider Source May 15, 2023 10:58 AM PREVENTIVE MEDICIN E NURSING NOTE: LOCAL TITLE: CLINICAL REMINDERS/NURSING STANDARD TITLE: PREVENTIVE MEDICINE NURSING NOTE DATE OF NOTE: MAY 15, 2023@10:58 ENTRY DATE: MAY 15, 2023@10:58:36 AUTHOR: LUIS PORRASIGNER: URGENCY: STATUS: COMPLETED CLINICAL REMINDERS/NURSING Has ADDENDA Influenza Immunization: The patient declines to receive the recommended dose of seasonal influenza vaccine. Immunization: INFLUENZA, UNSPECIFIED FORMULATION Refusal Reason: PATIENT DECISION Patient refuses all immunization(s) in the FLU group Date Documented: 05/15/23 10:59 /chayo PORRAS LPN Signed: 05/15/2023 11:00 05/27/2023 ADDENDUM STATUS: COMPLETED Influenza Immunization: The patient declines to receive the recommended dose of seasonal influenza vaccine. Immunization: INFLUENZA, UNSPECIFIED FORMULATION Refusal Reason: PATIENT DECISION Patient refuses all immunization(s) in the FLU group Date Documented: 05/27/23 08:13 /chayo PORRAS LPN Signed: 05/27/2023 08:13 LUIS PORRAS [facility]
--- OUTSIDE RECORDS SUMMARY | 2024-01-29 23:04 | XMS_ITS ---
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) MEDICARE (M) PART B Dec 19, 2008 PART B [id number] Katlyn BELLO PATIENT Selected Encounter This section includes the information on record at [place] for the Encounter. Date/Time Encounter Type Encounter Description Reason Provider Source Mar 25, 2023 02:00 PM COMPRE OPH EXAM EST PT 1/> OPTOMETRY ICD-10-CM H40.013 Open angle with borderline findings, low risk, bilateral SABINA ALBRECHT [place] Encounter Template Text not used by [place] Assessments - Encounter Diagnoses This section includes the primary and secondary diagnoses documented for the Encounter. Date/Time Primary/Secondary Diagnosis Diagnosis Name Provider Source Apr 06, 2023 12:20 PM PRIMARY Open angle with borderline findings, low risk, bilateral [facility] Apr 06, 2023 12:20 PM SECONDARY Benign neoplasm of right choroid [facility]BRE[facility] [place] [facility] Apr 06, 2023 12:20 PM SECONDARY Combined forms of age-related cataract, bilateral S[facility]INA ALBRECH[facility] [place] [facility] Apr 06, 2023 12:20 PM SECONDARY Dry eye syndrome of bilateral lacrimal glands SABINA ALBRECHT [facility] Plan of Treatment: Future Appointments (+ 6 months) and Future Tests (+/- 45 days) The Plan of Treatment section includes future care activities for the patient from all [place] treatmentfacilities. This section includes future appointments and future orders which are active, pending or scheduled. Future Appointments This section includes appointments that were scheduled to occur 6 months from the date of the Encounter, up to a maximum of 20 appointments. The data comes from all [place] treatment facilities. Appointment Date/Time Appointment Type Appointme nt Facility Name July 04, 2023 05:00 PM AMBULATORY - MEDICINE [facility] Social History: Smoking Status (Most current) and Tobacco Use (All prior to encounter date) This section includes the most current, and the historical, smoking and tobacco- related health factors from the [place] facility where the Encounter took place. Current Smoking Status This section includes the most current smoking, or tobacco-related health factor, from the [place] facility where the Encounter took place. Date/Time Current Smoking Status Comment Facil timo May 25, 2022 01:30 PM VA-TOBACCO NEVER USED [facility] Tobacco Use History This section includes a history of the smoking, or tobacco-related health factors, that were collected on or before the date of the Encounter. The data comes from the [place] facility where the Encounter took place. Date/Time Smoking Status/Tobacco Use Comment F acility May 19, 2021 02:00 PM VA-TOBACCO FORMER USER [facility] [place] [facility] May 19, 2021 02:00 PM VA-TOBACCO QUIT 15 YRS OR MORE [facility] [place] [facility] Mar 24, 2020 08:36 AM VA-TOBACCO FORMER USER [facility] [place] [facility] Mar 24, 2020 08:36 AM VA-TOBACCO QUIT 15 YRS OR MORE [facility] [place] [facility] Sep 17, 2017 02:25 PM QUIT TOBACCO USE > 7 YEARS AGO [place] [facility] [place] [facility] Encounter Notes: All associated encounter notes This section contains the clinical notes associated to the Encounter. Date/Time Encounter Note(s) Provider Source Mar 25, 2023 02:06 PM OPTOMETRY NOTE: LOCAL TITLE: OPTOMETRY NOTE(T) STANDARD TITLE: OPTOMETRY NOTE DATE OF NOTE: MAR 25, 2023@14:06 ENTRY DATE: MAR 25, 2023@14:06:16 AUTHOR: SABINA ALBRECHT EXP COSIGNER: URGENCY: STATUS: COMPLETED I saw this patient in conjunction with the student and agree to the stated findings and plan after reviewing both history and repeating an elements of physical exam. Patient presents for annual comprehensive exam well-known to me with history of moderately larger asymmetric cupping OU and therefore low risk open-angle glaucoma suspect OU. He also had blepharoplasty right upper lid with Dr. Hayes last November. He uses lubricating drops and ointment as needed OU. Otherwise no acute ocular disease was seen today. He will return in 3 months for repeat glaucoma imaging and then annual exam pending imaging results. 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 AF - Atrial Fibrillation ([facility] [id number]) 2. Exposure to potentially hazardous substance 3. COPD - Chronic Obstructive Pulmonary Disease ([facility] [id number]) 4. Hyperlipidemia 5. Papillary thyroid carcinoma 6. Benign prostatic hyperplasia 7. Impaired fasting glycaemia 8. Vocal cord paralysis 9. Spinal stenosis Active Outpatient Medications (including Supplies): Active Outpatient Medications Status 1) CARBOXYMETHYLCELLULOSE NA 0.5% OPH SOLN INSTILL 1 ACTIVE DROP INTO EACH EYE FOUR TIMES DAILY NEEDED FOR DRY EYES Active Non-VA Medications Status 1) Non-VA ALBUTEROL INHALER INHL,ORAL BY MOUTH ACTIVE 2) Non-VA ATORVASTATIN TAB BY MOUTH ACTIVE 3) Non-VA LEVOTHYROXINE NA (SYNTHROID) 200MCG TAB 0.2MG ACTIVE BY MOUTH EVERY MONTH 4) Non-VA LEVOTHYROXINE NA (SYNTHROID) 200MCG TAB 0.2MG ACTIVE BY MOUTH EVERY MORNING 30 MINUTES BEFORE BREAKFAST 5) Non-VA UMECLIDINIUM/VILANTEROL (ANORO) INHL,ORAL BY ACTIVE MOUTH 6) Non-VA [id number] G 30D INH 1 ACTIVE INHALATION BY MOUTH ONCE DAILY 7 Total Medications Allergies: Patient has answered NKA All medications including those prescribed by outside VA's, community providers, and all OTC meds were reviewed and reconciled with patient to the best of their abilities. This 78 year old MALE is seen today for routine eye exam Chief Complaint: constant dry eyes, tearing, forwign body sensation OD, started 2 weeks ago, patient uses ATS and ointment twice a day but doesnt provide relief. OHx: 1. Combined Cataracts OU 2. 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 Stable benign choroidal nevus left eye 4. Likely physiological cupping given large disc size with stable and healthy moderate optic nerve cupping (-) Pain: (-) MARIANO: (-) Diplopia: (-) Flashes: (-) Floaters: (-) Amaurosis Fugax/Tia's: (-) Eye Injury: (+) Eye Surgery: blepharoplasty OD, removal of RUL cyst, November [address] Hayes at [place] (-) TBI FOHx: (-) Glaucoma/ARMD/Blindness (-) Smoker/Length of Time/PPD: quit 50 years ago Last eye exam: 05-15-22 Current Rx with last BCVA: OD: +2.25 -2.00 axis 085 20/20 OS: +2.75 -2.25 axis 085 20/20 Add: +2.25 DVA ( )sc ( x )cc OD: 20/20-2 OS: 20/20 Pupils: PERRL (-)APD EOMs: SAFE OU, (-)Pain/Diplopia CVF (facial, peripheral): FTFC OU Subjective Refraction: BCVA OD: +2.50 -2.00 axis 085 20/20 OS: +2.75 -2.25 axis 085 20/20 Add: +2.50 All the above performed by student, reviewed by attending Anterior segment: Performed by student, repeated by attending Lids: clear OU Conj: white and quiet OU Cornea: 1+ SPK OD, trace SPK OD, mild EBMD (-)staining AC: 4x4 OU Iris: flat and clear OU Lens: 1-2 NSC OU, trace ACC inferior OD Tonometry: Performed by student, reviewed by attending OD 14 mmHg OS 14 mmHg Time: 2:08pm PreTreatment IOP: OD: 12 mmHg OS: 10 mmHg Fundus exam: Dilated: 2;10pm Dilating Drops: 1GTT 1 % Tropicamide OU & 1GTT 2.5% Phenylephrine OU (Pt. ed. on side effects, dilation warning given and verbal consent obtained) Patient advised not to drive if they feel they have any symptoms which could affect their ability to drive safely. Patient advised not to engage in any activities which could put themselves or others at risk if they feel they have any symptoms which could affect their ability to perform those activities safely. Performed by student, repeated by attending Vit: clear OU C/D: 0.55/0.55 OD, 0.55/0.55 OS Macula: flat and clear OD, 1DD nevus temporal OS, (-)SRF, lipofuscin PPole: clear A/V: 2/3 Vessels: normal caliber OU Periph: flat and intact (-)holes, tears, detachments 360 OU Assessment/Plan: 1. Dry eye syndrome secondary to Facial ocular rosacea - Patient was educated and understanding on findings. Currently symptomatic therefore, the use of lubricating drops BID-QID OU,ointment qhs, warm compresses and lid hygiene were recommended. - Monitor during next CEE. 2. 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 Choroidal nevus OS- stable, no lipofuscin, subretinal fluid -Monitor on next CEE 4. Nuclear scerosis cataracts OU - not visually significant -Pt ed re today's findings and the importance of UV protection -Pt ed cataracts may cause reduction of BCVA and symptoms of glare -RTC sooner if vision declines or interferes with ADLs - repeated back the plan and education. -Monitor 5. Likely Physiological cupping, stable moderate cupping. IOP normotensive today, previous pachymetry shows thinner than average. No family history of glaucoma, no evidence of pseudoexfoliation taday. Return in 3 months for glaucoma imaging. 5. Hyperopia with astigmatism, with presbyopia OU - Patient educated on findings, Rx updated - new RX ordered for PALs - Monitor Return to Clinic 1 year or earlier PRN [place] Education: After discussion and answering all 's questions, [place] demonstrated and verbalized understanding of diagnosis and treatment. Yes [x] No [ ] Medication Reconciliation: Outpatient: Has the patient been [...] with a VA or non-VA provider. 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
== END 2024-01-29 09:05 | disposition home or self-care (01) ==
PROVIDERS: PCP Internal Medicine; Visit Provider Orthopaedic Surgery
DX: M17.12 Unilateral primary osteoarthritis, left knee (principal)
CPT/HCPCS: 20610; 99213

== ENCOUNTER → 2024-01-29 08:38 | Outpatient (BNVA) | payer MEDICARE, SELFPAY | PROVIDERS: PCP Internal Medicine; Visit Provider Orthopaedic Surgery | DX: M17.12 Unilateral primary osteoarthritis, left knee (principal) | CPT/HCPCS: 20610; 99212; J2003; J7323 ==

== ENCOUNTER 2024-02-05 13:30 | Outpatient (AMB) | payer MEDICARE, SELFPAY ==
--- OUTSIDE RECORDS SUMMARY | 2024-02-05 13:32 | XMS_ITS | Continuity of Care Document ---
Author Name [facility] Organization [facility] Care Team Providers Care Sales Route Driver Name Role Phone [facility] Unavailable Unavailable Problems Combined list of problems from Department of Defense and Veterans Affairs facilities. It does not include entries that were removed or entered in error. Problem Status Onset Date Problem Type Date of Resolution Comments Source AF - Atrial Fibrillation ([facility] [id number]) Active Condition [facility] Benign prostatic hyperplasia Active Condition [facility] COPD - Chronic Obstructive Pulmonary Disease ([facility] [id number]) Active Condition [facility] [place] [...] of uncertain behavior of skin Active Diagnosis [facility] Medications Combined list of outpatient medications [...] PASM RESPIR ATORY (INHAL ATION) ACTIVE 12/27/2024 [id number] TERRIE DIAZ 2023 1 [facility] ALBUTEROL INHALER INHL,ORAL INHALE BY MOUTH RESPIR ATORY (INHAL ATION) ACTIVE Sebastian M[facility]A [facility] 2022 [facility] ATORVASTATI N TAB TAKE BY MOUTH ORAL ACTIVE [facility] [place] CARBAMIDE PEROXIDE 6.5%/GLYCER IN SOLN,OTIC INSTILL 5 DROPS INTO EACH EAR ONCE 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 (OTIC) 01/26/2024 [id number] TERRIE DIAZ 2023 15 [facility] CARBOXYMETH YLCELLULOSE NA 0.5% SOLN,OPH INSTILL 1 DROP INTO EACH EYE FOUR TIMES DAILY NEEDED FOR DRY EYES OPHTHA LMIC 05/16/2023 [id number] 4 Sebastian MORA [facility] 2022 45 [facility] LEVOTHYROXI NE NA 200MCG TAB (SYNTHROID) TAKE ONE TABLET BY MOUTH EVERY MONTH ORAL ACTIVE TERRIE DIAZ 2018 [facility] LEVOTHYROXI NE NA 200MCG TAB (SYNTHROID) TAKE ONE TABLET BY MOUTH EVERY MORNING 30 MINUTES BEFORE BREAKFAS T ORAL ACTIVE TERRIE DIAZ 2017 [facility] MINERAL OIL,LIGHT/P ETROLATUM (PF) OINT,OPH APPLY THIN RIBBON INTO EACH EYE AT BEDTIME FOR DRY EYE OPHTHA LMIC ACTIVE 03/25/2024 [id number] JASONAbebaChiomaEW E 2023 3 [facility] [...] Site Reaction Lot Number CVX Code Drug Detail Technician Status Comments Source COVID-19 (MODERNA), MRNA, LNP-S, PF, 100 MCG/0.5 ML DOSE 2 2020 207 complet ed MOD; [id number]; 1 [facility] [...] Reference Range Date Interpretation Specimen Comments Source TSH THYROTROPIN [UNITS/VOLU ME] IN SERUM OR PLASMA 0.08 u[IU]/ mL 0.35 - 5.00 12/26 L Specimen Type: SERUM No comment entered. Ordering Provider: MANOLO DIAZ Report Released Date/Time: Dec 27, 2023 03:31 PM Reporting Lab: [facility] [place] [address] [address] Performing Lab: [facility] [address] [address] [facility] [facility] HEMOGLOBI N A1C PANEL HEMOGLOBIN A1C/HEMOGLO BIN.TOTAL [...] Dec 27, 2023 03:31 PM Reporting Lab: [address] [address] Performing Lab: [facility] [address] [facility] CBC LEUKOCYTES [#/VOLUME] IN BLOOD BY AUTOMATED COUNT 7.94 10*3/u L 4.50 - 11.00 12/26 Specimen Type: BLOOD No comment entered. Ordering Provider: MANOLO DIAZ Report Released Date/Time: Dec 27, 2023 03:31 PM Reporting Lab: [address] [address] Performing Lab: [address] [address] [facility] [place] [facility] CBC ERYTHROCYTE S [#/VOLUME] IN BLOOD BY AUTOMATED COUNT 4.90 10*6/u L 4.23 - 5.66 12/26 Specimen Type: BLOOD No comment entered. Ordering Provider: MANOLO DIAZ Report Released Date/Time: Dec 27, 2023 03:31 PM Reporting Lab: [facility] [place] [facility] [address] [facility] [address] Performing Lab: [facility] [place] [facility] [address] [facility] [address] [facility] [place] [facility] CBC HEMOGLOBIN [MASS/VOLUM E] IN BLOOD 14.7 g/dL 12.8 - 17 12/26 Specimen Type: BLOOD No comment entered. Ordering Provider: MANOLO DIAZ Report Released Date/Time: Dec 27, 2023 03:31 PM Reporting Lab: [facility] [place] [address] [address] Performing Lab: [facility] [place] [address] [address] [facility] [place] [facility] CBC HEMATOCRIT [VOLUME FRACTION] OF BLOOD BY AUTOMATED COUNT 43.5 39.2 - 50.4 12/26 Specimen Type: BLOOD No comment entered. Ordering Provider: MANOLO DIAZ Report Released Date/Time: Dec 27, 2023 03:31 PM Reporting Lab: [facility] [place] [address] [address] Performing Lab: [facility] [place] [facility] [address] [facility] [address] [facility] [place] [facility] CBC MCV [ENTITIC VOLUME] BY AUTOMATED COUNT 88.8 fL 82 - 99 12/26 Specimen Type: BLOOD No comment entered. Ordering Provider: MANOLO DIAZ Report Released Date/Time: Dec 27, 2023 03:31 PM Reporting Lab: [facility] [place] [address] [address] Performing Lab: [facility] [address] [facility] [address] [facility] [place] [facility] CBC MCHC [MASS/VOLUM E] BY AUTOMATED COUNT 33.8 g/dL 30.8 - 35.1 12/26 Specimen Type: BLOOD No comment entered. Ordering Provider: MANOLO DIAZ Report Released Date/Time: Dec 27, 2023 03:31 PM Reporting Lab: [facility] [address] [facility] [address] Performing Lab: [facility] [place] [facility] [address] [facility] [address] [facility] [place] [facility] CBC PLATELETS [#/VOLUME] IN BLOOD BY AUTOMATED COUNT 263 10*3/u L 140 - 360 12/26 Specimen Type: BLOOD No comment entered. Ordering Provider: MANOLO DIAZ Report Released Date/Time: Dec 27, 2023 03:31 PM Reporting Lab: [facility] [place] [facility] [address] [facility] [address] Performing Lab: [facility] [place] [facility] [address] [facility] [address] [facility] [place] [facility] CBC ERYTHROCYTE DISTRIBUTIO N WIDTH [RATIO] BY AUTOMATED COUNT 13.2 12.0 - 16.0 12/26 Specimen Type: BLOOD No comment entered. Ordering Provider: MANOLO DIAZ Report Released Date/Time: Dec 27, 2023 03:31 PM Reporting Lab: [facility] [place] [facility] [address] [facility] [address] Performing Lab: [facility] [place] [facility] [address] [facility] [address] [facility] [place] [facility] CBC MCH [ENTITIC MASS] BY AUTOMATED COUNT 30.0 pg 26.2 - 32.6 12/26 Specimen Type: BLOOD No comment entered. Ordering Provider: MANOLO DIAZ Report Released Date/Time: Dec 27, 2023 03:31 PM Reporting Lab: [facility] [place] [facility] [address] [facility] [address] Performing Lab: [facility] [place] [facility] [address] [facility] [address] [facility] [place] [facility] LIVER FUNCTION PROTEIN [MASS/VOLUM E] IN SERUM OR PLASMA 6.4 g/dL 6.0 - 8.3 12/26 Specimen Type: SERUM No comment entered. Ordering Provider: MANOLO DIAZ Report Released Date/Time: Dec 27, 2023 03:31 PM Reporting Lab: [facility] [place] [facility] [address] [facility] [address] Performing Lab: [facility] [place] [facility] [address] [facility] [address] [facility] [place] [facility] LIVER FUNCTION ALBUMIN [MASS/VOLUM E] IN SERUM OR PLASMA 3.8 g/dL 3.5 - 5.0 12/26 Specimen Type: SERUM No comment entered. Ordering Provider: MANOLO DIAZ Report Released Date/Time: Dec 27, 2023 03:31 PM Reporting Lab: [facility] [place] [facility] [address] [facility] [address] Performing Lab: [facility] [place] [facility] [address] [facility] [address] [facility] [place] [facility] LIVER FUNCTION ALKALINE PHOSPHATASE [ENZYMATIC ACTIVITY/VO LUME] IN SERUM OR PLASMA 56 U/L 40 - 150 12/26 Specimen Type: SERUM No comment entered. Ordering Provider: MANOLO DIAZ Report Released Date/Time: Dec 27, 2023 03:31 PM Reporting Lab: [facility] [place] [facility] [address] [facility] [address] Performing Lab: [facility] [place] [facility] [address] [facility] [address] [facility] [place] [facility] LIVER FUNCTION ASPARTATE AMINOTRANSF ERASE [ENZYMATIC ACTIVITY/VO LUME] IN SERUM OR PLASMA 18 U/L 5 - 34 12/26 Specimen Type: SERUM No comment entered. Ordering Provider: MANOLO DIAZ Report Released Date/Time: Dec 27, 2023 03:31 PM Reporting Lab: [facility] [place] [facility] [address] [facility] [address] Performing Lab: [facility] [place] [facility] [address] [facility] [address] [facility] [place] [facility] LIVER FUNCTION ALANINE AMINOTRANSF ERASE [ENZYMATIC ACTIVITY/VO LUME] IN SERUM OR PLASMA 15 U/L 12/26 Specimen Type: SERUM No comment entered. Ordering Provider: MANOLO DIAZ Report Released Date/Time: Dec 27, 2023 03:31 PM Reporting Lab: [facility] [place] [facility] [address] [facility] [address] Performing Lab: [facility] [place] [facility] [address] [facility] [address] [facility] [place] [facility] LIVER FUNCTION BILIRUBIN.T OTAL [MASS/VOLUM E] IN SERUM OR PLASMA 0.6 mg/dL 0.2 - 1.2 12/26 Specimen Type: SERUM No comment entered. Ordering Provider: MANOLO DIAZ Report Released Date/Time: Dec 27, 2023 03:31 PM Reporting Lab: [facility] [place] [facility] [address] [facility] [address] Performing Lab: [facility] [place] [address] [address] [facility] [place] [facility] BASIC METABOLIC PANEL (non-fast ing) UREA NITROGEN [MASS/VOLUM E] IN SERUM OR PLASMA 17 mg/dL 7 - 25 12/26 Specimen Type: SERUM No comment entered. Ordering Provider: MANOLO DIAZ Report Released Date/Time: Dec 27, 2023 03:31 PM Reporting Lab: [facility] [address] [facility] [address] Performing Lab: [facility] [place] [address] [address] [facility] [place] [facility] BASIC METABOLIC PANEL (non-fast ing) GLUCOSE [MASS/VOLUM E] IN SERUM OR PLASMA 89 mg/dL 65 - 100 12/26 Specimen Type: SERUM No comment entered. Ordering Provider: MANOLO DIAZ Report Released Date/Time: Dec 27, 2023 03:31 PM Reporting Lab: [facility] [address] [address] Performing Lab: [address] [address] [facility] [place] BASIC METABOLIC PANEL (non-fast ing) SODIUM [MOLES/VOLU ME] IN SERUM OR PLASMA 140 mmol/L 135 - 145 12/26 Specimen Type: SERUM No comment entered. Ordering Provider: MANOLO DIAZ Report Released Date/Time: Dec 27, 2023 03:31 PM Reporting Lab: [address] [address] Performing Lab: [address] [address] [facility] BASIC METABOLIC PANEL (non-fast ing) POTASSIUM [MOLES/VOLU ME] IN SERUM OR PLASMA 4.0 mmol/L 3.5 - 5.0 12/26 Specimen Type: SERUM No comment entered. Ordering Provider: MANOLO DIAZ Report Released Date/Time: Dec 27, 2023 03:31 PM Reporting Lab: [facility] [address] [address] Performing Lab: [facility] [address] [address] [facility] BASIC METABOLIC PANEL (non-fast ing) CHLORIDE [MOLES/VOLU ME] IN SERUM OR PLASMA 107 mmol/L 100 - 110 12/26 Specimen Type: SERUM No comment entered. Ordering Provider: MANOLO DIAZ Report Released Date/Time: Dec 27, 2023 03:31 PM Reporting Lab: [address] [address] Performing Lab: [facility] [address] [facility] [address] [facility] BASIC METABOLIC PANEL (non-fast ing) CARBON DIOXIDE, TOTAL [MOLES/VOLU ME] IN SERUM OR PLASMA 23 meq/L 20 - 30 12/26 Specimen Type: SERUM No comment entered. Ordering Provider: MANOLO DIAZ Report Released Date/Time: Dec 27, 2023 03:31 PM Reporting Lab: [facility] [address] [facility] [address] Performing Lab: [address] [address] [facility] BASIC METABOLIC PANEL (non-fast ing) CREATININE [MASS/VOLUM E] IN SERUM OR PLASMA 0.96 mg/dL 0.50 - 1.40 12/26 Specimen Type: SERUM No comment entered. Ordering Provider: MANOLO DIAZ Report Released Date/Time: Dec 27, 2023 03:31 PM Reporting Lab: [address] [address] Performing Lab: [address] [address] [facility] BASIC METABOLIC PANEL (non-fast ing) GLOMERULAR FILTRATION RATE/1.73 SQ M.PREDICTED [VOLUME RATE/AREA] IN SERUM, PLASMA OR BLOOD BY CREATININE- BASED FORMULA (CKD-EPI 2020) 81 mL/min 60 12/26 Specimen Type: SERUM No comment entered. Ordering Provider: MANOLO DIAZ Report Released Date/Time: Dec 27, 2023 03:31 PM Reporting Lab: [address] [address] Performing Lab: [address] [address] [facility] LIPID PANEL, NON FASTING CHOLESTEROL [MASS/VOLUM E] IN SERUM OR PLASMA 153 mg/dL 12/26 Specimen Type: SERUM No comment entered. Ordering Provider: MANOLO DAIZ Report Released Date/Time: Dec 27, 2023 03:31 PM Reporting Lab: [facility] [place] [facility] [address] [facility] [address] Performing Lab: [facility] [place] [facility] [address] [facility] [address] [facility] [place] [facility] LIPID PANEL, NON FASTING TRIGLYCERID E [MASS/VOLUM E] IN SERUM OR PLASMA 105 mg/dL 0 - 150 12/26 Specimen Type: SERUM No comment entered. Ordering Provider: MANOLO DIAZ Report Released Date/Time: Dec 27, 2023 03:31 PM Reporting Lab: [facility] [place] [facility] [address] [facility] [address] Performing Lab: [facility] [place] [address] [address] [facility] [place] [facility] LIPID PANEL, NON FASTING CHOLESTEROL IN LDL [MASS/VOLUM E] IN SERUM OR PLASMA BY CALCULATION 86 mg/dL 0 - 129 12/26 Specimen Type: SERUM No comment entered. Ordering Provider: MANOLO DIAZ Report Released Date/Time: Dec 27, 2023 03:31 PM Reporting Lab: [facility] [place] [facility] [address] [facility] [address] Performing Lab: [facility] [place] [address] [address] [facility] [place] [facility] LIPID PANEL, NON FASTING CHOLESTEROL .TOTAL/CHOL ESTEROL IN HDL [MASS RATIO] IN SERUM OR PLASMA 3.3 12/26 Specimen Type: SERUM No comment entered. Ordering Provider: MANOLO DIAZ Report Released Date/Time: Dec 27, 2023 03:31 PM Reporting Lab: [facility] [place] [facility] [address] [facility] [address] Performing Lab: [facility] [place] [address] [address] [facility] [place] [facility] LIPID PANEL, NON FASTING CHOLESTEROL IN HDL [MASS/VOLUM E] IN SERUM OR PLASMA 46 mg/dL 40 - 60 12/26 Specimen Type: SERUM No comment entered. Ordering Provider: MANOLO DIAZ Report Released Date/Time: Dec 27, 2023 03:31 PM Reporting Lab: [facility] [address] [facility] [address] Performing Lab: [facility] [address] [address] [facility] THYROID T4 FREE(FT4) THYROXINE (T4) FREE [MASS/VOLUM E] IN SERUM OR PLASMA 1.43 ng/dL 0.6 - 1.6 05/25 Specimen Type: SERUM No comment entered. Ordering Provider: MANOLO DIAZ Report Released Date/Time: May 14, 2022 02:20 PM Reporting Lab: [address] [address] Performing Lab: [facility] [address] [facility] [address] [facility] BASIC METABOLIC PANEL (non-fast ing) UREA NITROGEN [MASS/VOLUM E] IN SERUM OR PLASMA 12 mg/dL 7 - 25 05/25 Specimen Type: SERUM No comment entered. Ordering Provider: MANOLO DIAZ Report Released Date/Time: May 14, 2022 02:20 PM Reporting Lab: [facility] [address] [facility] [address] Performing Lab: [facility] [address] [facility] [address] [facility] BASIC METABOLIC PANEL (non-fast ing) GLUCOSE [MASS/VOLUM E] IN SERUM OR PLASMA 99 mg/dL 65 - 100 05/25 Specimen Type: SERUM No comment entered. Ordering Provider: MANOLO DIAZ Report Released Date/Time: May 14, 2022 02:20 PM Reporting Lab: [facility] [address] [address] Performing Lab: [facility] [place] [facility] [address] [facility] [address] [facility] BASIC METABOLIC PANEL (non-fast ing) SODIUM [MOLES/VOLU ME] IN SERUM OR PLASMA 140 mmol/L 135 - 145 05/25 Specimen Type: SERUM No comment entered. Ordering Provider: MANOLO DIAZ Report Released Date/Time: May 14, 2022 02:20 PM Reporting Lab: [facility] [place] [facility] [address] [facility] [address] Performing Lab: [facility]TRN [facility] [address] [facility] [address] [facility] BASIC METABOLIC PANEL (non-fast ing) POTASSIUM [MOLES/VOLU ME] IN SERUM OR PLASMA 4.2 mmol/L 3.5 - 5.0 05/25 Specimen Type: SERUM No comment entered. Ordering Provider: MANOLO DIAZ Report Released Date/Time: May 14, 2022 02:20 PM Reporting Lab: [facility]TRN [facility] [address] [facility] [address] Performing Lab: [facility]N [facility] [address] [facility] [address] [facility]N [facility] BASIC METABOLIC PANEL (non-fast ing) CHLORIDE [MOLES/VOLU ME] IN SERUM OR PLASMA 106 mmol/L 100 - 110 05/25 Specimen Type: SERUM No comment entered. Ordering Provider: MANOLO DIAZ Report Released Date/Time: May 14, 2022 02:20 PM Reporting Lab: [facility]ITAL[facility] [address] [facility] [address] Performing Lab: [facility] [address] [facility] [address] [facility]ITALN [facility] BASIC METABOLIC PANEL (non-fast ing) CARBON DIOXIDE, TOTAL [MOLES/VOLU ME] IN SERUM OR PLASMA 23 meq/L 20 - 30 05/25 Specimen Type: SERUM No comment entered. Ordering Provider: MANOLO DIAZ Report Released Date/Time: May 14, 2022 02:20 PM Reporting Lab: [facility] [facility] [address] [facility] [address] Performing Lab: [facility] [place] [facility] [address] [facility] [address] [facility] [facility] BASIC METABOLIC PANEL (non-fast ing) CREATININE [MASS/VOLUM E] IN SERUM OR PLASMA 1.03 mg/dL 0.50 - 1.40 05/25 Specimen Type: SERUM No comment entered. Ordering Provider: MANOLO DIAZ Report Released Date/Time: May 14, 2022 02:20 PM Reporting Lab: [facility] [place] [address] [address] Performing Lab: [facility] [place] [address] [address] [facility] [place] [facility] BASIC METABOLIC PANEL (non-fast ing) GLOMERULAR FILTRATION RATE/1.73 SQ M.PREDICTED [VOLUME RATE/AREA] IN SERUM, PLASMA OR BLOOD BY CREATININE- BASED FORMULA (CKD-EPI) 75 mL/min 60 05/25 Specimen Type: SERUM No comment entered. Ordering Provider: MANOLO DIAZ Report Released Date/Time: May 14, 2022 02:20 PM Reporting Lab: [facility] [place] [address] [address] Performing Lab: [facility] [address] [address] [facility] LIPID PANEL FASTING CHOLESTEROL [MASS/VOLUM E] IN SERUM OR PLASMA 128 mg/dL 7 - 199 05/25 Specimen Type: SERUM No comment entered. Ordering Provider: MANOLO DIAZ Report Released Date/Time: May 14, 2022 02:20 PM Reporting Lab: [facility] [place] [address] [address] Performing Lab: [facility] [address] [address] [facility] LIPID PANEL FASTING TRIGLYCERID E [MASS/VOLUM E] IN SERUM OR PLASMA 72 mg/dL 0 - 150 05/25 Specimen Type: SERUM No comment entered. Ordering Provider: MANOLO DIAZ Report Released Date/Time: May 14, 2022 02:20 PM Reporting Lab: [facility] [place] [facility] [address] [facility] [address] Performing Lab: [facility] [place] [facility] [address] [facility] [address] [facility]ITALRMAR[facility]TR[facility] LIPID PANEL FASTING CHOLESTEROL IN LDL [MASS/VOLUM E] IN SERUM OR PLASMA BY CALCULATION 71 mg/dL 0 - 129 05/25 Specimen Type: SERUM No comment entered. Ordering Provider: MANOLO DIAZ Report Released Date/Time: May 14, 2022 02:20 PM Reporting Lab: [facility] [place] [address] [address] Performing Lab: [facility] [place] [address] [address] [facility] LIPID PANEL FASTING CHOLESTEROL .TOTAL/CHOL ESTEROL IN HDL [MASS RATIO] IN SERUM OR PLASMA 3.0 05/25 Specimen Type: SERUM No comment entered. Ordering Provider: MANOLO DIAZ Report Released Date/Time: May 14, 2022 02:20 PM Reporting Lab: [facility] [place] [address] [address] Performing Lab: [facility] [facility] [address] [facility] [address] [facility] LIPID PANEL FASTING CHOLESTEROL IN HDL [MASS/VOLUM E] IN SERUM OR PLASMA 43 mg/dL 40 - 60 05/25 Specimen Type: SERUM No comment entered. Ordering Provider: MANOLO DIAZ Report Released Date/Time: May 14, 2022 02:20 PM Reporting Lab: [facility] [place] [address] [address] Performing Lab: [facility] [place] [facility] [address] [facility] [address] [facility] [place] [facility] TSH THYROTROPIN [UNITS/VOLU ME] IN SERUM OR PLASMA < 0.06u[ IU]/mL 0.35 - 5.00 05/25 Specimen Type: SERUM No comment entered. Ordering Provider: MANOLO DIAZ Report Released Date/Time: May 14, 2022 02:20 PM Reporting Lab: [facility] [place] [facility] [address] [facility] [address] Performing Lab: [facility] [place] [facility] [address] [facility] [address] [facility] [place] [facility] Vital [...] [facility] [place] [facility] Out[facility] En[facility] [id number] 08/28 [facility] [place] [facility] [place] [facility] En[facility] [id number] 10/24 [facility] [place] [facility] [place] [facility] En[facility] [id number] 10/24 [facility] [place] [facility] [place] [facility] En[facility] [id number] 10/30 [facility] Out[facility] Encounter [id number] 11/19 [facility] Out[facility] Encounter [id number] 12/24 [facility] OFFICE O/P EST MOD 30-39 MIN [id number] Diagnos is: ICD-10- CM D48.5 Neoplas m of uncerta in behavio r of skin
GABRIELLA ALVARADO 01/01 [facility] Outpatient Encounter [id number] BOWIE MD 01/07 [facility] Out[facility] Encounter [id number] Diagnos is: ICD-10- CM Z02.89 Encount er for other adminis trative examina tions<b r/> ASHLEY MUELLER A 01/24 [facility] Out[facility] Encounter [id number] Diagnos is: ICD-10- CM Z02.89 Encount er for other adminis trative examina tions<b r/> ASHLEY MUELLER A 03/14 [facility] [place] [id number] Diagnos is: ICD-10- CM H40.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
DOMINIC ALBRECHT 03/25 [facility] FIT SPECTACLES MULTIFOCAL [id number] Diagnos is: ICD-10- CM Z46.0 Encount er for fit/adj st of spectac les and contact lenses< br/> DOMINIC ALBRECHT 03/26 [facility] Outpatient Encounter [id number] TAYLOR PORRAS ISTOPHER E 05/13 [facility] Outpatient Encounter [id number] 05/14 [facility] Outpatient Encounter [id number] 05/15 [facility] [place] Outpatient Encounter [id number] Diagnos is: ICD-10- CM Z02.89 Encount er for other adminis trative examina tions<b r/> DANIELLEOBARDOASHLEY PUENTES 07/03 [facility] OFFICE O/P EST MOD 30 MIN [id number] Diagnos is: ICD-10- CM Z86.018 Persona l history of other benign neoplas m
GABRIELLA ALVARADO 12/25 [facility] [place] OFFICE O/P EST MOD 30 MIN [id number] Diagnos is: ICD-10- CM I48.91 Unspeci fied atrial fibrill ation<b r/> Terri DIAZ 12/26 [facility] [place] [facility] OFF/OP EST MAY X REQ PHY/QHP [id number] 1. Diagnos is: ICD-10- CM H61.23 Impacte d cerumeyudy , bilraquel al
NIRMAL TOM 01/09 [facility] [place] Outpatient Encounter [id number] 1.01/09 [facility] [place] Social History Combined list of available smoking, tobacco, and other social history from Department of Defense and Veterans Affairs facilities. Social History Type Response Date Comment [facility] e Tobacco smoking status [facility] VA-TOBACCO FORMER USER 12/27/2023 [facility] [place] [facility] History of tobacco use VA-TOBACCO QUIT 15 YRS OR MORE 12/27/2023 [facility] [place] [facility] History of tobacco use VA-TOBACCO NEVER USED 05/25/2022 [facility] [place] [facility] History of tobacco use NC-TOBACCO FORMER USER 05/19/2021 [facility] [place] [facility] History of tobacco use NC-TOBACCO FORMER USER 03/24/[facility] [place] [facility] History of tobacco use QUIT TOBACCO USE > 7 YEARS AGO 09/17/2017 [facility] [place] [facility] Plan of Care List of future care activities from Department of Veterans Affairs facilities. Additional future care activities may be listed in the Assessment and Plan section. Date/Time Care Activity Care Activity Detail Facili ty 02/20/2024 AMBULATORY - MEDICINE [facility] [place] [facility] 03/24/2024 AMBULATORY - MEDICINE AMBULATORY - MEDICI [place] [facility] [place] [facility] 03/24/2024 AMBULATORY - MEDICINE AMBULATORY - MEDICI [place] [facility] [place] [facility] 12/27/2023 Consult Order COMMUNITY CARE-P ULMONARY Cons [facility]ulatory [facility] [place] [facility]
--- OUTSIDE RECORDS SUMMARY | 2024-02-05 13:32 | XMS_ITS ---
Author Name [facility] [place] Organization [facility] [place] Address [address] [place] [address] Care Team Providers Care Overedge Machine Operator Name Role Phone TERRIE DAIZ Primary Care Provider [facility] Insurance Providers: All historical and current [...] Cardenas's Name Patient's Relationship to Policy Cardenas [facility] MEDICARE SUPPLEMEN VEL MEDEX BRONZ E Mar 21, 2011 [id number] Katlyn BELLO PATIENT [facility] MEDICARE SUPPLEMEN VEL MEDEX BRONZ E Mar 21, 2011 [id number] Katlyn BELLO PATIENT MEDICARE (WN) MEDICARE (M) PART A Dec 19, 2008 PART A [id number] Katlyn BELLO PATIENT MEDICARE (WNR) MEDICARE (M) PART B Dec 19, 2008 PART B [id number] Katlyn BELLO PATIENT Selected Encounter This section includes the information on record at [place] for the Encounter. Date/Time Encounter Type Encounter Description Reason Provider Source Dec 26, 2023 09:30 AM OFFICE O/P EST MOD 30 MIN DERMATOLOGY ICD-10-CM Z86.018 Personal history of other benign neoplasm BHARATIROSE MARIE SO Eddy Encounter Template Text not used by [place] Assessments - Encounter Diagnoses This section includes the primary and secondary diagnoses documented for the Encounter. Date/Time Primary/Secondary Diagnosis Diagnosis Name Provider Source Jan 09, 2024 04:53 PM PRIMARY Personal history of other benign [facility]oplasm [facility] [place] [facility] Jan 09, 2024 04:53 PM SECONDARY Hemangioma of skin and subcutaneous tissue [facility] [place] [facility] Jan 09, 2024 04:53 PM SECONDARY Inflamed seborrheic keratosis [facility] [place] [facility] Jan 09, 2024 04:53 PM SECONDARY Nevus, non-neoplastic [facility] [place] [facility] Jan 09, 2024 04:53 PM SECONDARY Other melanin hyperpigmentation [facility] [facility] Jan 09, 2024 04:53 PM SECONDARY Other seborrheic keratosis [facility] [place] [facility] Plan of Treatment: Future Appointments (+ 6 months) and Future Tests (+/- 45 days) The Plan of Treatment section includes future care activities for the patient from all [facility] This section includes future appointments and future orders which are active, pending or scheduled. Future Appointments This section includes appointments that were scheduled to occur 6 months from the date of the Encounter, up to a maximum of 20 appointments. The data comes from all [place] treatment facilities. Appointment Date/Time Appointment Type Appointme nt Facility Name Dec 27, 2023 03:00 PM AMBULATORY - MEDICINE [facility] [place] [facility] Jan 10, 2024 01:00 PM AMBULATORY - MEDICINE [facility] [facility] Feb 20, 2024 04:40 PM AMBULATORY - MEDICINE [facility] [place] [facility] Mar 24, 2024 09:30 AM AMBULATORY - MEDICINE [facility] [place] [facility] Mar 24, 2024 10:00 AM AMBULATORY - MEDICINE [facility] [place] [facility] Active, Pending, and Scheduled Orders This section includes a listing of several types of active, pending, and scheduled orders, including clinic medications orders, diagnostic test orders, procedure orders and consult orders; where the start date of the order is 45 days before the date of the Encounter or 45 days after the date of theEncounter. The data comes from all [place] treatment facilities. Test Date/Time Test Type Test Details Facility Name Dec 27, 2023 03:28 PM Consult Order COMMUNITY CARE-PULMONARY Cons Travel Service Consultant's Choice [facility] Lab Results: +/- 30 days of the encounter This section includes the Chemistry and Hematology Lab Results on record with [place] for the patient. Radiology Reports and Pathology Reports are provided separately, in subsequent sections. Lab Results This section contains the Chemistry/Hematology Results that were resulted 30 days before or 30 daysafter the date of the Encounter. Date/Time Source Result Type Result - Unit Interpretation Reference Range Comment Dec 27, 2023 03:37 PM [facility] TSH Specimen Type: SERUM No comment entered. Ordering Provider: KISHA DIAZ AM Report Released Date/Time: Dec 27, 2023 03:31 PM Reporting Lab: [address] [address] Performing Lab: [address] [address] TSH 0.08 u[IU]/mL L 0.35-5.00 Dec 27, 2023 03:37 PM [facility] HEMOGLOBIN A1C PANEL Specimen Type: BLOOD [...] Dec 27, 2023 03:31 PM Reporting Lab: [address] [address] Performing Lab: [facility] [address] [address] HEMOGLOBIN A1C 5.2 4.0-5.6 Dec 27, 2023 03:37 PM [facility] CBC Specimen Type: BLOOD No comment entered. Ordering Provider: KISHA DIAZ AM Report Released Date/Time: Dec 27, 2023 03:31 PM Reporting Lab: [address] [address] Performing Lab: [address] [address] WBC 7.94 10*3/uL 4.50-11.00 RBC 4.90 10*6/uL 4.23-5.66 HGB 14.7 g/dL 12.8-17 HCT 43.5 39.2-50.4 MCV 88.8 fL 82-99 MCHC 33.8 g/dL 30.8-35.1 PLT 263 10*3/uL 140-360 RDW-CV 13.2 12.0-16.0 MCH 30.0 pg 26.2-32.6 Dec 27, 2023 03:37 PM [facility] BASIC METABOLIC PANEL (non-fasting) Specimen Type: SERUM No comment entered. Ordering Provider: KISHA DIAZ AM Report Released Date/Time: Dec 27, 2023 03:31 PM Reporting Lab: [address] [address] Performing Lab: [address] [address] UREA NITROGEN 17 mg/dL 7-25 GLUCOSE 89 mg/dL 65-100 SODIUM 140 mmol/L 135-145 POTASSIUM 4.0 mmol/L 3.5-5.0 CHLORIDE 107 mmol/L 100-110 CO2 23 meq/L 20-30 CREATININE, Serum 0.96 mg/dL 0.50-1.40 eGFR(CKD-EPI 2020) 81 mL/min >60 Dec 27, 2023 03:37 PM [facility] LIVER FUNCTION Specimen Type: SERUM No comment entered. Ordering Provider: KISHA DIAZ AM Report Released Date/Time: Dec 27, 2023 03:31 PM Reporting Lab: [facility] [address] [facility] [address] Performing Lab: [facility] [address] [facility] [address] PROTEIN,TOTAL 6.4 g/dL 6.0-8.3 ALBUMIN 3.8 g/dL 3.5-5.0 ALKALINE PHOSPHATASE 56 U/L 40-150 AST 18 U/L 5-34 ALT 15 U/L BILIRUBIN, TOTAL 0.6 mg/dL 0.2-1.2 Dec 27, 2023 03:37 PM [facility] LIPID PANEL, NON FASTING Specimen Type: SERUM No comment entered. Ordering Provider: KISHA DIAZ AM Report Released Date/Time: Dec 27, 2023 03:31 PM Reporting Lab: [facility] [address] [facility] [address] Performing Lab: [address] [address] CHOLESTEROL 153 mg/dL TRIGLYCERIDE 105 mg/dL 0-150 LDL calculated 86 mg/dL 0-129 CHOL/HDL 3.3 HDL CHOLESTEROL 46 mg/dL 40-60 Social History: Smoking Status (Most current) and Tobacco Use (All prior to encounter date) This section includes the most current, and the historical, smoking and tobacco- related health factors from the [place] facility where the Encounter took place. Current Smoking Status This section includes the most current smoking, or tobacco-related health factor, from the AR facility where the Encounter took place. Date/Time Current Smoking Status Comment Edwin greenwood May 25, 2022 01:30 PM VA-TOBACCO NEVER USED [facility] Tobacco Use History This section includes a history of the smoking, or tobacco-related health factors, that were collected on or before the date of the Encounter. The data comes from the [place] facility where the Encounter took place. Date/Time Smoking Status/Tobacco Use Comment Yuki acdarian May 19, 2021 02:00 PM VA-TOBACCO FORMER USER [facility] May 19, 2021 02:00 PM VA-TOBACCO QUIT 15 YRS OR MORE [facility] Mar 24, 2020 08:36 AM VA-TOBACCO FORMER USER [facility] [place] [facility] Mar 24, 2020 08:36 AM [facility]-TOBACCO [facility]IT [facility]RS [facility] Sep 17, 2017 02:25 PM QUIT TOBACCO USE > 7 YEARS AGO [facility] Encounter Notes: All associated encounter notes This section contains the clinical notes associated to the Encounter. 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 Parkman denies any other new/changing/bleeding/non- healing lesions. REVIEW [...] (ANORO) INHL,ORAL BY ACTIVE MOUTH 6) Non-VA UINLXMCSSFMH35.5/VILANTERO L25MCG 30D INH 1 ACTIVE INHALATION BY [...] lesions or changes #Seborrheic Keratoses, Inflamed -The was educated regarding the benign nature, but given irritation/pain, destructive treatment requested. -Liquid nitrogen cryotherapy performed as a destructive method. -Liquid nitrogen (2 cycles x 5-8sec) x #1 lesions performed (L Lower back - lesion of concern). -Side effects including but not limited to redness, crusting, swelling, blistering, scarring, and hypopigmentation discussed. -Wound care discussed in length. #Seborrheic Keratoses: -The Parkman was educated regarding the benign nature, but [...] area. RTC 1 yr, sooner PRN * educated to RTC klarissa if any new, [...] of active outpatient prescriptions dispensed from this AR (local) and dispensed from another VA or [...] Remote Allergy/ADR Data available for this patient [facility] [place] [facility] No Known Allergies Med Recon NoGlossary (Tool [...] the patient into personal health records (i.e. [place]) are NOT included in this list. Non-VA medications documented outside this VA, remote inpatient orders (regardless of status) and [...] BEFORE BREAKFAST Patient wants to buy from Non-AR pharmacy. Medication prescribed by Non-VA provider. Non-VA LEVOTHYROXINE NA (SYNTHROID) 200MCG TAB TAKE ONE TABLET BY MOUTH EVERY MONTH Patient wants to buy from Non-AR pharmacy. Medication prescribed by Non-VA provider. OUTPT LUBRICATING (PF) OPH OINT (Status = Active) APPLY THIN RIBBON INTO EACH EYE AT BEDTIME FOR DRY EYE Rx# [id number] Last Released: 04/01/23 Qty/Days Supply: Rx Expiration Date: 03/25/24 Refills Remainin Indication: FOR DRY EYE Non-VA UMECLIDINIUM/VILANTEROL (ANORO) INHL,ORAL INHALE BY MOUTH ONCE DAILY Non-VA [id number]/VILANTERO L25MCG 30D INH OVDWATXCRFEQ32.5/VILANTERO L25MCG 30D INH INHALE 1 INHALATION BY MOUTH ONCE DAILY Medication prescribed by Non-VA provider. Indication: FOR BRONCHOSPASM PREVENTION WITH COPD SUPPLIES /renetta/ GABRIELLA ALVARADO DNP, STOCK CONTROLLER-C NURSE PRACTITIONER Signed: 12/26/2023 10:00 G[facility]LLA [facility]VARADO [facility]
--- OUTSIDE RECORDS SUMMARY | 2024-02-05 13:32 | XMS_ITS | Encounter Summary ---
Author Name [facility] [place] Address [address] [place] [address] Care Team Providers Care Senior Insight Manager Name Role Phone TERRIE DIAZ Primary Care [...] VEL MEDEX BRONZ E Mar [birth year], 2011 [id number] Katlyn BELLO PATIENT [facility] MEDICARE SUPPLEMEN VEL MEDEX BRONZ E Mar 21, 2011 [id number] Katlyn BELLO PATIENT MEDICARE (WN) MEDICARE (M) PART A Dec 19, 2008 PART A [id number] Katlyn BELLO PATIENT MEDICARE (WNR) MEDICARE (M) PART B Dec 19, 2008 PART B [id number] Katlyn BELLO PATIENT Selected Encounter This section includes the information on record at [place] for the Encounter. Date/Time Encounter Type Encounter Description Reason Provider Source July 04, 2023 05:00 PM Outpatient Encounter GENERAL INTERNAL MEDICINE ICD-10-CM Z02.89 Encounter for other administrative examinations KARIN ARCOS [facility] Encounter Template Text not used by [place] Assessments - Encounter Diagnoses This section includes the primary and secondary diagnoses documented for the Encounter. Date/Time Primary/Secondary Diagnosis Diagnosis Name Provider Source July 04, 2023 03:15 PM PRIMARY Encounter for other administrative examinations [facility]IN ARCOS [facility] Plan of Treatment: Future Appointments (+ 6 months) and Future Tests (+/- 45 days) The Plan of Treatment section includes future care activities for the patient from all [place] [facility]. This section includes future appointments and future orders which are active, pending or scheduled. Future Appointments This section includes appointments that were scheduled to occur 6 months from the date of the Encounter, up to a maximum of 20 appointments. The data comes from all [place] treatment facilities. Appointment Date/Time Appointment Type Appointme nt Facility Name Dec 26, 2023 09:30 AM [facility]BULAT[facility] MEDIC[facility] Dec 27, 2023 03:00 PM AMBULATORY [facility] MEDICINE [facility] Social History: Smoking Status (Most current) and Tobacco Use (All prior to encounter date) This section includes the most current, and the historical, smoking and tobacco- related health factors from the [place] facility where the Encounter took place. Current Smoking Status This section includes the most current smoking, or tobacco-related health factor, from the [place] facility where the Encounter took place. Date/Time Current Smoking Status Comment Edwin ity May 25, 2022 01:30 PM NM-TOBACCO NEVER USED [facility] Tobacco Use History This section includes a history of the smoking, or tobacco-related health factors, that were collected on or before the date of the Encounter. The data comes from the [place] facility where the Encounter took place. Date/Time Smoking Status/Tobacco Use Comment F acility May 19, 2021 02:00 PM [facility]ACCO [facility] [place] [facility] May 19, 2021 02:00 PM VA-TOBACCO QUIT 15 YRS OR [facility] Mar 24, 2020 08:36 AM VA-TOBACCO [facility] Mar 24, 2020 08:36 AM [place]-TOBACCO QUIT 15 YRS OR MORE [facility] Sep 17, 2017 02:25 PM QUIT TOBACCO USE > 7 YEARS AGO [facility] Encounter Notes: All associated encounter [...] DBQ being completed in conjunction with a [place] [id number], C&P Examination Request? [X] Yes [ ] [...] Evidence reviewed (check all that apply): [X] [place] electronic health record [X] [place] e-folder [X] [...] Yes [ ] No b. 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 Medical history a. Describe the history (including onset and course) of the Curran's thyroid and/or parathyroid condition (brief summary): LAST C&P EXAM 03/14/2023 BY [facility] ANALYST: PLEASE SEE THAT DBQ FOR ADDITIONAL DETAILS [...] surgery: No response provided d. Does the Curran have any residual endocrine dysfunction following treatment for thyroid or parathyroid condition? [ ] Yes [X] No 3. Thyroid: findings, signs, and symptoms a. Does the Curran currently have any findings, signs or symptoms attributable to a thyroid condition? [ ] Yes [X] No b. Does the Curran currently have any findings, signs or symptoms attributable to a hyperthyroid condition? [ ] Yes [X] No c. Does the currently have any findings of thyroid enlargement? [ ] Yes [X] No d. Does the Curran currently have any findings, signs, or symptoms attributable to a hypothyroid condition? [ ] Yes [X] No e. Does the Curran currently have a diagnosis of thyroiditis? [ ] Yes [X] No 4. Parathyroid: findings, signs, and symptoms a. Does the Curran currently have any findings, signs, or symptoms attributable to a parathyroid condition? [ ] Yes [X] No b. Does the currently have any findings, signs, or symptoms attributable to a hyperparathyroid condition? [ ] Yes [X] No Is the condition currently asymptomatic? No response provided. Is the Curran an individual who is not a candidate for surgery but requires continuous medication for control of a hyperparathyroid condition? No response provided. Has the Curran undergone surgery for a hyperparathyroid condition? No response provided. As a result of hyperparathyroid dysfunction, does the Curran currently have any of the following symptoms that occur despite surgery? No response provided. Does the Curran now have or did the Curran ever have hypercalcemia that meets the criteria below? No response provided. c. Does the Curran currently have any findings, signs, or symptoms [...] Scars or other disfigurement ----- Does the Curran have any scars or other disfigurement (of the skin) related to any conditions or to the treatment of any conditions listed in the diagnosis section above? [X] Yes [ ] No 8. Tumors and neoplasms a. Does the Curran have a benign or malignant neoplasm or [...] [X] No 11. Functional impact Does the Curran's thyroid or parathyroid condition impact his or her ability to work? [X] Yes [ ] No If yes, describe impact of the Curran's thyroid and/or parathyroid condition, providing one or more examples: The Curran can not speak for prolonged periods of [...] PRACTITIONER Signed: 07/04/2023 15:13 CODY ARCOS [facility] [place] [facility]
--- OUTSIDE RECORDS SUMMARY | 2024-02-05 13:33 | XMS_ITS | Encounter Summary ---
Author Name [place] Organization [place] Address [address] [place] [address] Care Team Providers Care Brazer Helper Induction Name Role Phone TERRIE DIAZ Primary Care [...] Cardenas's Name Patient's Relationship to Policy Cardenas [facility] MEDICARE SUPPLEMEN VEL MEDEX BRONZ E Mar 21, 2011 [id number] Katlny BELLO PATIENT [facility] MEDICARE SUPPLEMEN VEL MEDEX BRONZ E Mar 21, 2011 [id number] Katlyn BELLO PATIENT MEDICARE (WNR) MEDICARE (M) PART A Dec 19, 2008 PART A [id number] Katlyn BELLO PATIENT MEDICARE (WNR) MEDICARE (M) PART B Dec 19, 2008 PART B [id number] Katlyn BELLO PATIENT Selected Encounter This section includes the information on record at [place] for the Encounter. Date/Time Encounter Type Encounter Description Reason Pro vider Source May 16, 2023 01:35 PM Outpatient Encounter PRIMARY CARE/MEDICINE IHE Encounter Template Text not used by [place] Plan of Treatment: Future Appointments (+ 6 months) and Future Tests (+/- 45 days) The Plan of Treatment section includes future care activities for the patient from all [place] [facility]. This section includes future appointments and future orders which are active, pending or scheduled. Future Appointments This section includes appointments that were scheduled to occur 6 months from the date of the Encounter, up to a maximum of 20 appointments. The data comes from all [place] treatment facilities. Appointment Date/Time Appointment Type Appointme nt Facility Name July 04, 2023 05:00 PM AMBULATORY - MEDICINE [facility] Social History: Smoking Status (Most current) and Tobacco Use (All prior to encounter date) This section includes the most current, and the historical, smoking and tobacco- related health factors from the [place] facility where the Encounter took place. Current Smoking Status This section includes the most current smoking, or tobacco-related health factor, from the [place] facility where the Encounter took place. Date/Time Current Smoking Status Comment Edwin greenwood May 25, 2022 01:30 PM VA-TOBACCO [facility] Tobacco Use History This section includes a history of the smoking, or tobacco-related health factors, that were collected on or before the date of the Encounter. The data comes from the [place] facility where the Encounter took place. Date/Time Smoking Status/Tobacco Use Comment F acility May 19, 2021 02:00 PM VA-TOBACCO FORMER USER [place] [facility] May 19, 2021 02:00 PM VA-TOBACCO QUIT 15 YRS OR MORE [place] [facility] [place] [facility] Mar 24, 2020 08:36 AM VA-TOBACCO FORMER USER [place] [facility] [place] [facility] Mar 24, 2020 08:36 AM VA-TOBACCO QUIT 15 YRS OR MORE [place] [facility] [place] [facility] Sep 17, 2017 02:25 PM QUIT TOBACCO USE > 7 YEARS AGO [facility] Encounter Notes: All associated encounter [...] he has an appt with PCP on 05-22-2022@4152,also labs have been ordered,any questions vet mayuse the call back # from message. /renetta/ Sy Sarabia, Health Food Service Representative [employer]LE [employer] MAKER,PRIMARY CARE Signed: 05/16/2023 13:37 SY SARABIA [place] [facility] [place] [facility]
--- OUTSIDE RECORDS SUMMARY | 2024-02-05 13:33 | XMS_ITS ---
Author Name Department [place] Organization [place] Address [address] [place] [address] Care Team Providers Care Short Haul Driver Name Role Phone TERRIE DIAZ Primary Care [...] Cardenas's Name Patient's Relationship to Policy Cardenas [facility] MEDICARE SUPPLEMEN VEL MEDEX BRONZ E Mar 21, 2011 [id number] [phone] Katlyn BELLO PATIENT [facility] MEDICARE SUPPLEMEN EVL MEDEX BRONZ E Mar 21, 2011 [id number] Katlyn BELLO PATIENT MEDICARE (WNR) MEDICARE (M) PART A Dec 19, 2008 PART A [id number] Katlyn BELLO PATIENT MEDICARE (WNR) MEDICARE (M) PART B Dec 19, 2008 PART B [id number] Katlyn BELLO PATIENT Selected Encounter This section includes the information on record at [place] for the Encounter. Date/Time Encounter Type Encounter Description Reason Pro vider Source May 15, 2023 10:58 AM Outpatient Encounter PRIMARY CARE/MEDICINE IHE Encounter Template Text not used by [place] Plan of Treatment: Future Appointments (+ 6 months) and Future Tests (+/- 45 days) The Plan of Treatment section includes future care activities for the patient from all [place] [facility]. This section includes [...] 04, 2023 05:00 PM AMBULATORY - MEDICINE [facility] Social History: Smoking Status (Most current) and [...] 25, 2022 01:30 PM VA-TOBACCO [facility]ED [facility] Tobacco Use History This section includes a history of the smoking, or tobacco-related health factors, that were collected on or before the date of the Encounter. The data comes from the [place] facility where the Encounter took place. Date/Time Smoking Status/Tobacco Use Comment F acility May 19, 2021 02:00 PM VA-TOBACCO FORMER USER [place] [facility] May 19, 2021 02:00 PM VA-TOBACCO QUIT 15 YRS OR MORE [place] [facility] [place] [facility] Mar 24, 2020 08:36 AM VA-TOBACCO FORMER USER [place] [place] [facility] Mar 24, 2020 08:36 AM VA-TOBACCO QUIT 15 YRS OR MORE [place] [facility] [place] [facility] Sep 17, 2017 02:25 PM QUIT TOBACCO USE > 7 YEARS AGO [facility] WSN [facility] Encounter Notes: All [...] LPN Signed: 05/27/2023 08:13 LUIS PORRAS CNTRL [facility]
--- OUTSIDE RECORDS SUMMARY | 2024-02-05 13:33 | XMS_ITS | Encounter Summary ---
Author Name Department of [place]a Affairs [place] Organization Department of [place] Address [address] [place] [address] Care Team Providers Care Director Of Program Management Name Role Phone TERRIE DIAZ Primary Care [...] Cardenas's Name Patient's Relationship to Policy Cardenas [facility] MEDICARE SUPPLEMEN VEL MEDEX BRONZ E Mar 21, 2011 [id number] Katlyn BELLO PATIENT [facility] MEDICARE SUPPLEMEN VEL MEDEX BRONZ E Mar 21, 2011 [id number] [phone] Katlyn BELLO PATIENT MEDICARE (WN) MEDICARE (M) PART A Dec 19, 2008 PART A [id number] [phone] Katlyn BELLO PATIENT MEDICARE ([facility]) MEDICARE (M) PART B Dec 19, 2008 PART B [id number] Katlyn BELLO PATIENT Selected Encounter This section includes the information on record at [place] for the Encounter. Date/Time Encounter Type Encounter Description Reason Provider Source Mar 25, 2023 02:00 PM COMPRE OPH EXAM EST PT 1/> OPTOMETRY ICD-10-CM H40.013 Open angle with borderline findings, low risk, bilateral SABINA ALBRECHT Eddy Encounter Template Text not used by [place] Assessments - Encounter Diagnoses This section includes the primary and secondary diagnoses documented for the Encounter. Date/Time Primary/Secondary Diagnosis Diagnosis Name Provider Source Apr 06, 2023 12:20 PM PRIMARY Open angle with borderline findings, low risk, bilateral SABINA ALBRECHT [facility] Apr 06, 2023 12:20 PM SECONDARY Benign neoplasm of right choroid SABINA ALBRECHT [facility] [place] [facility] Apr 06, 2023 12:20 PM SECONDARY Combined forms of age-related cataract, bilateral SABINA ALBRECHT [facility] [place] [facility] Apr 06, 2023 12:20 PM SECONDARY Dry eye syndrome of bilateral lacrimal glands SABINA ALBRECHT [facility] Plan of Treatment: Future Appointments (+ 6 months) and Future Tests (+/- 45 days) The Plan of Treatment section includes future care activities for the patient from all [place] treatmentfacilities. This section includes future appointments and future orders which are active, pending or scheduled. Future Appointments This section includes appointments that were scheduled to occur 6 months from the date of the Encounter, up to a maximum of 20 appointments. The data comes from all [place] treatment facilities. Appointment Date/Time Appointment Type Appointme nt Facility Name July 04, 2023 05:00 PM AMBULATORY - MEDICINE [facility] Social History: Smoking Status (Most current) and Tobacco Use (All prior to encounter date) This section includes the most current, and the historical, smoking and tobacco- related health factors from the [place] facility where the Encounter took place. Current Smoking Status This section includes the most current smoking, or tobacco-related health factor, from the [place] facility where the Encounter took place. Date/Time Current Smoking Status Comment Facil timo May 25, 2022 01:30 PM VA-TOBACCO NEVER USED [facility] Tobacco Use History This section includes a history of the smoking, or tobacco-related health factors, that were collected on or before the date of the Encounter. The data comes from the [place] facility where the Encounter took place. Date/Time Smoking Status/Tobacco Use Comment F acility May 19, 2021 02:00 PM VA-TOBACCO FORMER USER [place] [facility] [place] [facility] May 19, 2021 02:00 PM VA-TOBACCO QUIT 15 YRS OR MORE [place] [facility] [place] [facility] Mar 24, 2020 08:36 AM VA-TOBACCO FORMER USER [place] CN[facility] [facility] Mar 24, 2020 08:36 AM VA-TOBACCO QUIT 15 YRS OR MORE [place] [facility] [place] [facility] Sep 17, 2017 02:25 PM QUIT TOBACCO USE > 7 YEARS AGO [place] [facility] Encounter Notes: All associated encounter [...] imaging results. 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 AF - Atrial Fibrillation ([facility] [id number]) 2. Exposure to potentially hazardous substance 3. COPD - Chronic Obstructive Pulmonary Disease ([facility] [id number]) 4. Hyperlipidemia 5. Papillary thyroid carcinoma 6. [...] (ANORO) INHL,ORAL BY ACTIVE MOUTH 6) Non-VA [id number] G 30D INH 1 ACTIVE INHALATION BY [...] cyst, November [address] Hayes at [place] (-) TBI FOHx: (-) Glaucoma/ARMD/Blindness (-) Smoker/Length [...] to Clinic 1 year or earlier PRN Hos[place] Education: After discussion and answering all 's questions, Hosford demonstrated and verbalized understanding of diagnosis and [...] 03/25/2023 15:09 /renetta/ SABINA ALBRECHT OD STAFF GLASS LATHE OPERATOR Cosigned: 03/25/2023 15:15 BUZZ BROWNING [place] CNTL WSTRN [facility]
--- OUTSIDE RECORDS SUMMARY | 2024-02-05 13:33 | XMS_ITS ---
Author Name Department [place] Organization [place] Address [address] [place] [address] Care Team Providers Care Soil Sort Worker Name Role Phone TERRIE DIAZ Primary [...] Name Patient's Relationship to Policy Cardenas [facility] MEDICARE SUPPLEMEN VEL MEDEX BRONZ E Mar 21, 2011 [id number] Katlyn BELLO PATIENT [facility] MEDICARE SUPPLEMEN VEL MEDEX BRONZ E Mar 21, 2011 [id number] [phone] Katlyn BELLO PATIENT MEDICARE (WN) MEDICARE (M) PART A Dec 19, 2008 PART A [id number] Katlyn BELLO PATIENT MEDICARE (WNR) MEDICARE (M) PART B Dec 19, 2008 PART B [id number] Katlyn BELLO PATIENT Selected Encounter This section includes the information on record at [place] for the Encounter. Date/Time Encounter Type Encounter Description Reason Provider Source May 14, 2023 07:04 PM Outpatient Encounter PRIMARY CARE/MEDICINE BRANDON PORRAS Eddy Encounter Template Text not used by [place] Plan of Treatment: Future Appointments (+ 6 months) and Future Tests (+/- 45 days) The Plan of Treatment section includes future care activities for the patient from all [place] [facility]. This section includes future appointments and future orders which are active, pending or scheduled. Future Appointments This section includes appointments that were scheduled to occur 6 months from the date of the Encounter, up to a maximum of 20 appointments. The data comes from all [place] treatment facilities. Appointment Date/Time Appointment Type Appointme nt Facility Name July 04, 2023 05:00 PM AMBULATORY - MEDICINE [facility] Social History: Smoking Status (Most current) and Tobacco Use (All prior to encounter date) This section includes the most current, and the historical, smoking and tobacco- related health factors from the [place] facility where the Encounter took place. Current Smoking Status This section includes the most current smoking, or tobacco-related health factor, from the [place] facility where the Encounter took place. Date/Time Current Smoking Status Comment Edwin ity May 25, 2022 01:30 PM VA-TOBACCO [facility] Tobacco Use History This section includes a history of the smoking, or tobacco-related health factors, that were collected on or before the date of the Encounter. The data comes from the [place] facility where the Encounter took place. Date/Time Smoking Status/Tobacco Use Comment F acility May 19, 2021 02:00 PM VA-TOBACCO FORMER USER [place]TR[place] [facility] May 19, 2021 02:00 PM VA-TOBACCO QUIT 15 YRS OR MORE [place] [place] [facility] Mar 24, 2020 08:36 AM VA-TOBACCO FORMER USER [place] CN[facility] [facility] Mar 24, 2020 08:36 AM VA-TOBACCO QUIT 15 YRS OR MORE [place] [facility] [place] [facility] Sep 17, 2017 02:25 PM QUIT TOBACCO USE > [facility] Encounter Notes: All associated encounter notes [...] AM ET From: CIARA BELLO To: Terri DIAZ_[facility] Subject: General:General Inquiry I had the Covid vaccine (Moderna [id number]) on 2020 and May 11, 2020. Not interested in getting any additional vaccines including the Flu vaccine. Ciara Bello ------Original Message -------- Sent: 05/25/2023 05:25 PM ET From: CIARA BELLO To: Terri DIAZ_[facility] Subject: General:General Inquiry No I have not had the FLU/Covid or RSV vaccines outside the [place] this season and I do not plan on getting them Ciara Bello /renetta/ LUIS PORRAS LPN Signed: 05/27/2023 08:14 LUIS PORRAS [place] [facility] May 14, 2023 07:04 PM PRIMARY CARE SECUR E MESSAGING: [facility] TITLE: PRIMARY CARE SECURE MESSAGING STANDARD TITLE: [...] PORRAS LPN Signed: 05/14/2023 20:04 LUIS PORRAS [place] [facility]
--- OUTSIDE RECORDS SUMMARY | 2024-02-05 13:34 | XMS_ITS | Encounter Summary ---
Author Name Department [place] Organization [place] Address [address] [place] [address] Care Team Providers Care Cesspool Cleaner Name Role Phone TERRIE DIAZ Primary Care [...] VEL MEDEX BRONZ E Mar [birth year], 2011 [id number] [phone] Katlyn BELLO PATIENT [facility] MEDICARE SUPPLEMEN VEL MEDEX BRONZ E Mar 21, 2011 [id number] Katlyn BELLO PATIENT MEDICARE (WN) MEDICARE (M) PART A Dec 19, 2008 PART A [id number] Katlyn BELLO PATIENT MEDICARE ([facility]) MEDICARE (M) PART B Dec 19, 2008 PART B [id number] Katlyn BELLO PATIENT Selected Encounter This section includes the information on record at [place] for the Encounter. Date/Time Encounter Type Encounter Description Reason Provider Source Mar 26, 2023 11:52 AM FIT SPECTACLES MULTIFOCAL OPTOMETRY ICD-10-CM Z46.0 Encounter for fit/adjst of spectacles and contact lenses SABINA ALBRECHT Encounter Template Text not used by [place] Assessments - Encounter Diagnoses This section includes the primary and secondary diagnoses documented for the Encounter. Date/Time Primary/Secondary Diagnosis Diagnosis Name Provider Source Mar 26, 2023 11:52 AM PRIMARY Encounter for fit/adjst of spectacles and contact lenses DEBBIE GONZALEZ [facility] Plan of Treatment: Future Appointments (+ 6 months) and Future Tests (+/- 45 days) The Plan of Treatment section includes future care activities for the patient from all [place] treatmentfacilities. This section includes future appointments and future orders which are active, pending or scheduled. Future Appointments This section includes appointments that were scheduled to occur 6 months from the date of the Encounter, up to a maximum of 20 appointments. The data comes from all [place] treatment facilities. Appointment Date/Time Appointment Type Appointme nt Facility Name July 04, 2023 05:00 PM AMBULATORY - MEDICINE [facility] Social History: Smoking Status (Most current) and Tobacco Use (All prior to encounter date) This section includes the most current, and the historical, smoking and tobacco- related health factors from the [place] facility where the Encounter took place. Current Smoking Status This section includes the most current smoking, or tobacco-related health factor, from the [place] facility where the Encounter took place. Date/Time Current Smoking Status Comment Facil ity May 25, 2022 01:30 PM VA-TOBACCO NEVER [facility]ED [facility] Tobacco Use History This section includes a history of the smoking, or tobacco-related health factors, that were collected on or before the date of the Encounter. The data comes from the [place] facility where the Encounter took place. Date/Time Smoking Status/Tobacco Use Comment F acility May 19, 2021 02:00 PM VA-TOBACCO FORMER USER [place] [facility] May 19, 2021 02:00 PM VA-TOBACCO QUIT 15 YRS OR MORE [place] [facility] Mar 24, 2020 08:36 AM VA-TOBACCO [facility] [place] [facility] Mar 24, 2020 08:36 AM VA-TOBACCO QUIT 15 YRS OR MORE [place] [facility] [place] [facility] Sep 17, 2017 02:25 PM QUIT TOBACCO USE > 7 YEARS AGO [facility] Encounter Notes: All [...] Dir: Prz2:0.00 Dir2: FITTING INFORMATION FPD: NPD:-3 Terry:R:33.5 L:34.0 SEG HT:R:25 L:25 Tint:None Shade:None VA Billable Items FRAME: GLENALLEN STANTON [id number] Right Lens: POLY VA PROGRESSIVE 1.586 POLY Left Lens: POLY VA PROGRESSIVE 1.586 POLY KLEAR ANTI-REFLECTIVE COATING /renetta/ BEAR PIMENTEL TRIMMER LOADER Signed: 03/26/2023 11:52 Receipt Acknowledged By: 03/26/2023 16:37 /renetta/ DEBBIE NEIL [facility] 03/26/2023 ADDENDUM STATUS: COMPLETED PDS guitar repairer fit 1 PAL eyeglasses on 03/25/2023. OPT HT entered consult(s) as requested for provider signature. /renetta/ DEBBIE [facility] Signed: 03/26/2023 16:38 BEAR PIMENTEL [facility]
--- OUTSIDE RECORDS SUMMARY | 2024-02-05 13:34 | XMS_ITS ---
Author Name [facility] [place] Organization [place] Address [address] [place] [address] Care Team Providers Care Elect Equip Maint Eng Name Role Phone TERRIE DIAZ Primary Care [...] VEL MEDEX BRONZ E Mar 21, 2011 [id number] [phone] Katlyn BELLO PATIENT [facility] MEDICARE SUPPLEMEN VEL MEDEX BRONZ E Mar 21, 2011 [id number] Katlyn BELLO PATIENT MEDICARE (WN) MEDICARE (M) PART A Dec 19, 2008 PART A [id number] Katlyn BELLO PATIENT MEDICARE (WNR) MEDICARE (M) PART B Dec 19, 2008 PART B [id number] Katlyn BELLO PATIENT Selected Encounter This section includes the information on record at [place] for the Encounter. Date/Time Encounter Type Encounter Description Reason Provider Source Mar 14, 2023 08:00 AM Outpatient Encounter GENERAL INTERNAL MEDICINE ICD-10-CM Z02.89 Encounter for other administrative examinations KARIN ARCOS [facility] Encounter Template Text not used by [place] Assessments - Encounter Diagnoses This section includes the primary and secondary diagnoses documented for the Encounter. Date/Time Primary/Secondary Diagnosis Diagnosis Name Provider Source Mar 14, 2023 10:29 AM PRIMARY Encounter for other administrative examinations KARIN ARCOS [facility] Plan of Treatment: Future Appointments (+ 6 months) and Future Tests (+/- 45 days) The Plan of Treatment section includes future care activities for the patient from all [place] [facility]. This section includes future appointments [...] 25, 2023 02:00 PM AMBULATORY - MEDICINE [facility] July 04, 2023 05:00 PM AMBULATORY - MEDICINE [facility] Social History: Smoking Status (Most current) and Tobacco Use (All prior to encounter date) This section includes the most current, and the historical, smoking and tobacco- related health factors from the [place] facility where the Encounter took place. Current Smoking Status This section includes the most current smoking, or tobacco-related health factor, from the [place] facility where the Encounter took place. Date/Time Current Smoking Status Comment Edwin greenwood May 25, 2022 01:30 PM MI-TOBACCO NEVER USED [facility] Tobacco Use History This section includes a history of the smoking, or tobacco-related health factors, that were collected on or before the date of the Encounter. The data comes from the [place] facility where the Encounter took place. Date/Time Smoking Status/Tobacco Use Comment F acility May 19, 2021 02:00 PM VA-TOBACCO [facility] May 19, 2021 02:00 PM VA-TOBACCO QUIT 15 YRS OR MORE [facility] Mar 24, 2020 08:36 AM [facility] Mar 24, 2020 08:36 AM VA-TOBACCO QUIT 15 YRS OR MORE [facility] Sep 17, 2017 02:25 PM QUIT TOBACCO USE > 7 YEARS AGO [facility] Encounter Notes: All associated encounter notes [...] DBQ being completed in conjunction with a MI [phone], C&P Examination Request? [X] Yes [ ] [...] Evidence reviewed (check all that apply): [X] [place] electronic health record [X] [place] e-folder [X] [...] due to your thyroid cancer, and the [place] has determined there is no indication of [...] parathyroid condition? (This is the condition the Moneta is claiming or for which an exam has been requested) [X] Yes [ ] No b. Select the Moneta's Condition (Check all that apply): [X] Hypothyroidism [...] TOXIC EXPOSURE SCREENING: believes exposure to Agent Ophelia: Concern: Thyroid Cancer * 11/21/2020 PRIVATE RECORDS: [...] * August 31 1969 start date of [place] Service per DD214 * 07/15/1969 STR MEDICAL [...] ] Yes [X] No b. Does the Moneta currently have any findings, signs or symptoms attributable to a hyperthyroid condition? [ ] Yes [X] No c. Does the currently have any findings of thyroid enlargement? [ ] Yes [X] No d. Does the Moneta currently have any findings, signs, or symptoms attributable to a hypothyroid condition? [ ] Yes [X] No e. Does the Moneta currently have a diagnosis of thyroiditis? [ ] Yes [X] No 4. Parathyroid: findings, signs, and symptoms a. Does the currently have any findings, signs, or symptoms attributable to a parathyroid condition? [ ] Yes [X] No b. Does the Moneta currently have any findings, signs, or symptoms attributable to a hyperparathyroid condition? [ ] Yes [X] No Is the condition currently asymptomatic? No response provided. Is the Moneta an individual who is not a candidate for surgery but requires continuous medication for control of a hyperparathyroid condition? No response provided. Has the Moneta undergone surgery for a hyperparathyroid condition? No response provided. As a result of hyperparathyroid dysfunction, does the currently have any of the following symptoms that occur despite surgery? No response provided. Does the now have or did the Moneta ever have hypercalcemia that meets the criteria below? No response provided. c. Does the Moneta currently have any findings, signs, or symptoms [...] No If yes, describe impact of the Moneta's thyroid and/or parathyroid condition, providing one or more examples: The Moneta can not speak for prolonged periods of time: nor can he speak in a louder tone of voice. 12. Remarks, if any: NOTE: The surgical scar is not new, there are no changes. Details regarding the scar can be found on the SCAR DBQ completed by this commercial underwriter 12/13/2020. A new scar DBQ completion is not warranted. The 's status is considered INACTIVE, most recent labs = stable findings. No new biopsy or diagnosics (besides lab work) in the available medical evidence since the last C&P exam. Questions for Historical Rating Criteria Is the Moneta's date of claim or date of intent to file, if applicable, on or prior to January 26, 2017? [ ] Yes [X] No Historical 3. Findings, signs and symptoms No response provided. Historical 9. Diagnostic testing ------ No response provided. Medical Opinion Disability Benefits Questionnaire Name of patient/Moneta: CIARA BELLO ([id number]) MARYA and Evidence Review Indicate method used [...] all that apply): [X] [place] e-folder [X] [place] electronic health record [X] Other (please identify other evidence reviewed): VBMS, JLV, VISTAIMAGING, CPRS DD214 NOTES [place] SERVICE Aug - Aug Evidence Comments: * 02/28/2023 VBA RATING DECISION: - Evidence shows that you performed service in [facility]. Service personnel records confirm [place] service from August 31, 1969 to August [...] due to your thyroid cancer, and the [facility] has determined there is no indication of [...] exposure through all applicable deployments of the Moneta and the synergistic, combined effect of all toxic exposure risk activities of the . c. Provide rationale: REVIEW OF AVAILABLE MEDICAL EVIDENCE: * 2023 DERM NOTE: Current medications: levothyroxine daily * 05/25/2022 PRIMARY CARE NOTE: Neck: supple without masses, trachea midline, ln not palpable, no thyromegaly. Weight 234 lbs. TOXIC EXPOSURE SCREENING: Moneta believes exposure to Agent Ophelia: Concern: Thyroid Cancer * 11/21/2020 PRIVATE RECORDS: PAST MEDICAL HISTORY Past medical history significant for thyroid cancer status post excision. * 10/24/2017 PRIMARY CARE NOTE: Papillary thyroid carcinoma - THYROIDECTOMY 2006, follows non [place] [facility], maintains ultrasound survellience, on levo. Weight [...] * August 30 1970 end date of [facility] Service per DD214 * August 31 1969 start date of [place] Service per DD214 * 07/15/1969 STR MEDICAL HISTORY: Are you being treated or have you been treated for any of the following diseases? Thyroid Disease NO * 01/19/1969 DATE OF ENTRY TO ACTIVE DUTY PER DD214 * 10/27/1968 STR PREINDUCTION: Medical: normal neck. Self Assessment: NO goiter. REVIEW OF PEER-REVIEWED MEDICAL LITERATURE: UpToDaaiyana, IAMINTOITMAP, Cancer Research, National Library of Medicine, [place] Society of Clinical Oncology (ASCO) websites accessed [...] of thyroid cancer. o Strongly associated with [place] Atomic Bomb survivors, children exposed to [place] fall out Thyroid cancer may be more common in survivors of atomic explosions or accidents. IODINE: Some people have low levels of iodine, this is a higher risk of thyroid cancer if exposed to radiation. GENETICS: Some types of thyroid cancer are associated with genetics. RE[facility]ED [facility] INFORMATION PROVIDED IN [facility] DATED: 12/12/2022 (There is a blank Environmental Hazard Registry in [facility], per review by this commercial underwriter this date.) REVIEWED TRUPTI MINDY IN [facility] DATED: 12/12/2022 QUESTIONS WITH A YES ANSWER: #1 Does the qualify for presumption of exposure for the following hazards during service? Herbicide agent - SOLITARIO PULLIAMIST REQUIRED EXPOSURE RESOURCES REVIEWED AND CONSIDERED: https://www.publichealth. a.gov/exposures/agentorang e TRUPTI MEDICAL OPINION: The Moneta's available STRS are silent for thyroid issues [...] exposure through all applicable deployments of the Moneta and the synergistic, combined effect of all toxic exposure risk activities of the Moneta. /renetta/ KARIN ARCOS NURSE PRACTITIONER Signed: 03/14/2023 10:27 CODY ARCOS [facility]
--- OUTSIDE RECORDS SUMMARY | 2024-02-05 13:35 | XMS_ITS | Encounter Summary ---
Author Name Department of [place] [place] Organization [place] of [place] Address [address] [place] [address] Care Team Providers Care Music Mixer Name Role Phone RUBA MELCHOR Primary Care Provider [facility] Insurance Providers: All historical and current [...] Name Patient's Relationship to Policy Cardenas [facility] MEDICARE SUPPLEMEN VEL MEDEX BRONZ E Mar 21, 2011 [id number] [phone] Katlyn BELLO PATIENT [facility] MEDICARE SUPPLEMEN VEL MEDEX BRONZ E Mar 21, 2011 [id number] [phone] Katlyn BELLO PATIENT MEDICARE (WNR) MEDICARE (M) PART B Dec 19, 2008 PART B [id number] [phone] Katlyn BELLO PATIENT MEDICARE (WNR) MEDICARE (M) PART A Dec 19, 2008 PART A [id number] Katlyn BELLO PATIENT Selected Encounter This section includes the information on record at [place] for the Encounter. Date/Time Encounter Type Encounter Description Reason Provider Source Dec 27, 2023 03:00 PM OFFICE O/P EST MOD 30 MIN PRIMARY CARE/MEDICINE ICD-10-CM I48.91 Unspecified atrial fibrillation MELCHOR,WILL TALI J IHE Encounter Template Text not used by [place] Assessments - Encounter Diagnoses This section includes the primary and secondary diagnoses documented for the Encounter. Date/Time Primary/Secondary Diagnosis Diagnosis Name Provider Source Jan 09, 2024 04:55 PM PRIMARY Unspecified atrial fibrillation MELCHOR,WILL TALI J [facility] Jan 09, 2024 04:55 PM SECONDARY Chronic obstructive pulmonary disease, unspecified MELCHOR,WILL TALI J [facility] Plan of Treatment: Future Appointments (+ 6 months) and Future Tests (+/- 45 days) The Plan of Treatment section includes future care activities for the patient from all [place] [facility]. This section includes future appointments and future orders which are active, pending or scheduled. Future Appointments This section includes appointments that were scheduled to occur 6 months from the date of the Encounter, up to a maximum of 20 appointments. The data comes from all [facility]. Appointment Date/Time Appointment Type Appointme nt Facility Name Jan 10, 2024 01:00 PM AMBULATORY - MEDICINE [facility] Feb 20, 2024 04:40 PM AMBULATORY MEDICINE [facility] Mar 24, 2024 09:30 AM [facility] Mar 24, 2024 10:00 AM AMBULATORY MEDICINE [facility] Active, Pending, and Scheduled Orders This section includes a listing of several types of active, pending, and scheduled orders, including clinic medications orders, diagnostic test orders, procedure orders and consult orders; where the start date of the order is 45 days before the date of the Encounter or 45 days after the date of theEncounter. The data comes from all [facility]. Test Date/Time Test Type Test Details Facility Name Dec 27, 2023 03:28 PM Consult Order COMMUNITY CARE-PULMONARY Cons Nurseryman Assistant's Choice [facility] Lab Results: +/- 30 days of the encounter This section includes the Chemistry and Hematology Lab Results on record with [place] for the patient. Radiology Reports and Pathology Reports are provided separately, in subsequent sections. Lab Results This section contains the Chemistry/Hematology Results that were resulted 30 days before or 30 daysafter the date of the Encounter. Date/Time Source Result Type Result - Unit Interpretation Reference Range Comment Dec 27, 2023 03:37 PM [facility] TSH Specimen Type: SERUM No comment entered. Ordering Provider: KISHA MELCHOR AM Report Released Date/Time: Dec 27, 2023 03:31 PM Reporting Lab: [facility] [address] [facility] [address] Performing Lab: [address] [address] TSH 0.08 u[IU]/mL L 0.35-5.00 Dec 27, 2023 03:37 PM [facility] HEMOGLOBIN A1C PANEL Specimen Type: BLOOD [...] Dec 27, 2023 03:31 PM Reporting Lab: [facility] [address] [facility] [address] Performing Lab: [address] [address] HEMOGLOBIN A1C 5.2 4.0-5.6 Dec 27, 2023 03:37 PM [facility] CBC Specimen Type: BLOOD No comment entered. Ordering Provider: KISHA MELCHOR AM Report Released Date/Time: Dec 27, 2023 03:31 PM Reporting Lab: [facility] [address] [facility] [address] Performing Lab: [address] [address] WBC 7.94 10*3/uL 4.50-11.00 RBC 4.90 10*6/uL 4.23-5.66 HGB 14.7 g/dL 12.8-17 HCT 43.5 39.2-50.4 MCV 88.8 fL 82-99 MCHC 33.8 g/dL 30.8-35.1 PLT 263 10*3/uL 140-360 RDW-CV 13.2 12.0-16.0 MCH 30.0 pg 26.2-32.6 Dec 27, 2023 03:37 PM [facility] LIVER FUNCTION Specimen Type: SERUM No comment entered. Ordering Provider: KISHA MELCHOR AM Report Released Date/Time: Dec 27, 2023 03:31 PM Reporting Lab: [address] [address] Performing Lab: [address] [address] PROTEIN,TOTAL 6.4 g/dL 6.0-8.3 ALBUMIN 3.8 g/dL 3.5-5.0 ALKALINE PHOSPHATASE 56 U/L 40-150 AST 18 U/L 5-34 ALT 15 U/L BILIRUBIN, TOTAL 0.6 mg/dL 0.2-1.2 Dec 27, 2023 03:37 PM [facility] BASIC METABOLIC PANEL (non-fasting) Specimen Type: SERUM No comment entered. Ordering Provider: KISHA MELCHOR AM Report Released Date/Time: Dec 27, 2023 03:31 PM Reporting Lab: [address] [address] Performing Lab: [address] [address] UREA NITROGEN 17 mg/dL 7-25 GLUCOSE 89 mg/dL 65-100 SODIUM 140 mmol/L 135-145 POTASSIUM 4.0 mmol/L 3.5-5.0 CHLORIDE 107 mmol/L 100-110 CO2 23 meq/L 20-30 CREATININE, Serum 0.96 mg/dL 0.50-1.40 eGFR(CKD-EPI 2020) 81 mL/min >60 Dec 27, 2023 03:37 PM [facility] LIPID PANEL, NON FASTING Specimen Type: SERUM No comment entered. Ordering Provider: KISHA MELCHOR AM Report Released Date/Time: Dec 27, 2023 03:31 PM Reporting Lab: [place] [facility] [place] [facility] [address] [facility] [address] Performing Lab: [facility] [place] [facility] [address] [facility] [address] CHOLESTEROL 153 mg/dL TRIGLYCERIDE 105 mg/dL 0-150 [...] 180/92 20 98 2 73 232 31 [place] [facility] [place] [facility] Social History: Smoking Status (Most current) [...] 27, 2023 03:00 PM VA-TOBACCO FORMER USER [place] [facility] [place] [facility] Tobacco Use History This section includes a history of the smoking, or tobacco-related health factors, that were collected on or before the date of the Encounter. The data comes from the [place] facility where the Encounter took place. Date/Time Smoking Status/Tobacco Use Comment F acility Dec 27, 2023 03:00 PM VA-TOBACCO QUIT 15 YRS OR MORE [facility] [place] [facility] May 25, 2022 01:30 PM VA-TOBACCO NEVER USED [facility] [place] [facility] May 19, 2021 02:00 PM VA-TOBACCO FORMER USER [facility] [place] [facility] May 19, 2021 02:00 PM VA-TOBACCO QUIT 15 YRS OR MORE [facility] [place] [facility] Mar 24, 2020 08:36 AM VA-TOBACCO FORMER USER [facility] [place] [facility] Mar 24, 2020 08:36 AM VA-TOBACCO QUIT 15 YRS OR MORE [facility] [place] [facility] Sep 17, 2017 02:25 PM QUIT TOBACCO USE > [facility] Encounter Notes: All associated encounter [...] complaint: Patient is a 78 year old . HPI: Pleasant male here to follow up. Comes yearly. Follows with: PCP - Dr Locke endocrine - Dr Morel pulm - Dr Hardwick, [facility] Allergies: Patient has answered NKA The following [...] (ANORO) INHL,ORAL BY ACTIVE MOUTH 6) Non-VA FNEZXJAMRIAG65.5/VILANTERO L25MCG 30D INH 1 ACTIVE INHALATION BY [...] for the followin. AF - Atrial Fibrillation ([facility] [id number]) - rate controlled 2. COPD - Chronic Obstructive Pulmonary Disease - follows non [place] Health Care Maintenance: declines flu and covid [...] of active outpatient prescriptions dispensed from this [place] (local) and dispensed from another VA or [...] or non-VA provider. /renetta/ Ruba Melchor DNP, ENGINEER EXHAUSTER-BC, CNL Primary Care Nurse Practitioner Signed: 12/27/2023 15:40 RUBA MELCHOR [facility] [place] [facility] Dec 27, 2023 03:03 PM PREVENTIVE MEDICINE NURSING NOTE: LOCAL TITLE: CLINICAL REMINDERS/NURSING STANDARD TITLE: PREVENTIVE MEDICINE NURSING NOTE DATE OF NOTE: DEC 27, 2023@15:03 ENTRY DATE: DEC 27, 2023@15:03:21 AUTHOR: SY SARABIAIGNER: URGENCY: STATUS: COMPLETED Advance Directive Screen MH [...] of his/her rights. Suicide Screen: C-SSRS Screening [place]-Suicide Severity Rating Scale (C-SSRS Screener) 1. Over [...] Not worried about housing near future [facility] [place] reports the following: Within the past 12 [...] full rights to use it throughout the [place] system. PRIMARY SCREEN RESULT: The Primary Screen is NEGATIVE. The individual answered never to all forms of IPV above (i.e., answered never to all 5 items) The individual accepts education and/or resources: No EDUCATION: Other: not interested at this time // Sy Sarabia Health Crm Coordinator MEDICAL EDUCATION MANAGER,PRIMARY CARE Signed: 12/27/2023 15:07 SY SARABIA [place] [facility]
--- OUTSIDE RECORDS SUMMARY | 2024-02-05 13:35 | XMS_ITS ---
Author Name [facility] [place] Address [address] [place] [address] Care Team Providers Care Tire Fixer Name Role Phone TERRIE DIAZ Primary Care [...] Cardenas's Name Patient's Relationship to Policy Cardenas [facility] MEDICARE SUPPLEMEN VEL MEDEX BRONZ E Mar 21, 2011 [id number] [phone] Katlyn BELLO PATIENT [facility] MEDICARE SUPPLEMEN VEL MEDEX BRONZ E Mar 21, 2011 [id number] Katlyn BELLO PATIENT MEDICARE (WNR) MEDICARE (M) PART A Dec 19, 2008 PART A [id number] Katlyn BELLO PATIENT MEDICARE (WNR) MEDICARE (M) PART B Dec 19, 2008 PART B [id number] Katlyn BELLO PATIENT Selected Encounter This section includes the information on record at [place] for the Encounter. Date/Time Encounter Type Encounter Description Reason Pro vider Source Jan 10, 2024 02:01 PM Outpatient Encounter PRIMARY CARE/MEDICINE IHE Encounter Template Text not used by [place] Plan of Treatment: Future Appointments (+ 6 months) and Future Tests (+/- 45 days) The Plan of Treatment section includes future care activities for the patient from all [place] [facility] This section includes future appointments and future orders which are active, pending or scheduled. Future Appointments This section includes appointments that were scheduled to occur 6 months from the date of the Encounter, up to a maximum of 20 appointments. The data comes from all [place] treatment facilities. Appointment Date/Time Appointment Type Appointme nt Facility Name Feb 20, 2024 04:40 PM AMBULATORY - MEDICINE [place] [facility] Mar 24, 2024 09:30 AM AMBULATORY MEDICINE [facility] Mar 24, 2024 10:00 AM AMBULATORY MEDICINE [facility] Active, Pending, and Scheduled Orders This section includes a listing of several types of active, pending, and scheduled orders, including clinic medications orders, diagnostic test orders, procedure orders and consult orders; where the start date of the order is 45 days before the date of the Encounter or 45 days after the date of theEncounter. The data comes from all [facility] facilities. Test Date/Time Test Type Test Details Facility Name Dec 27, 2023 03:28 PM Consult Order COMMUNITY CARE-PULMONARY Cons Director Of Analytics's Choice [facility] Lab Results: +/- 30 days of the encounter This section includes the Chemistry and Hematology Lab Results on record with [place] for the patient. Radiology Reports and Pathology Reports are provided separately, in subsequent sections. Lab Results This section contains the Chemistry/Hematology Results that were resulted 30 days before or 30 daysafter the date of the Encounter. Date/Time Source Result Type Result - Unit Interpretation Reference Range Comment Dec 27, 2023 03:37 PM [facility] TSH Specimen Type: SERUM No comment entered. Ordering Provider: KISHA DIAZ AM Report Released Date/Time: Dec 27, 2023 03:31 PM Reporting Lab: [facility] [address] [address] Performing Lab: [address] [address] TSH 0.08 u[IU]/mL L 0.35-5.00 Dec 27, 2023 03:37 PM [facility] HEMOGLOBIN A1C PANEL Specimen Type: BLOOD Comment: [...] Dec 27, 2023 03:31 PM Reporting Lab: [address] [address] Performing Lab: [address] [address] HEMOGLOBIN A1C 5.2 4.0-5.6 Dec 27, 2023 03:37 PM [facility] CBC Specimen Type: BLOOD No comment entered. Ordering Provider: KISHA DIAZ AM Report Released Date/Time: Dec 27, 2023 03:31 PM Reporting Lab: [address] [address] Performing Lab: [address] [address] WBC 7.94 10*3/uL 4.50-11.00 RBC 4.90 10*6/uL 4.23-5.66 HGB 14.7 g/dL 12.8-17 HCT 43.5 39.2-50.4 MCV 88.8 fL 82-99 MCHC 33.8 g/dL 30.8-35.1 PLT 263 10*3/uL 140-360 RDW-CV 13.2 12.0-16.0 MCH 30.0 pg 26.2-32.6 Dec 27, 2023 03:37 PM [facility] BASIC METABOLIC PANEL (non-fasting) Specimen Type: SERUM No comment entered. Ordering Provider: KISHA DIAZ AM Report Released Date/Time: Dec 27, 2023 03:31 PM Reporting Lab: [facility] [address] [address] Performing Lab: [facility] [address] [address] UREA NITROGEN 17 mg/dL 7-25 GLUCOSE 89 mg/dL 65-100 SODIUM 140 mmol/L 135-145 POTASSIUM 4.0 mmol/L 3.5-5.0 CHLORIDE 107 mmol/L 100-110 CO2 23 meq/L 20-30 CREATININE, Serum 0.96 mg/dL 0.50-1.40 eGFR(CKD-EPI 2020) 81 mL/min >60 Dec 27, 2023 03:37 PM [facility] LIVER FUNCTION Specimen Type: SERUM No comment entered. Ordering Provider: KISHA DIAZ AM Report Released Date/Time: Dec 27, 2023 03:31 PM Reporting Lab: [address] [address] Performing Lab: [address] [address] PROTEIN,TOTAL 6.4 g/dL 6.0-8.3 ALBUMIN 3.8 g/dL 3.5-5.0 ALKALINE PHOSPHATASE 56 U/L 40-150 AST 18 U/L 5-34 ALT 15 U/L BILIRUBIN, TOTAL 0.6 mg/dL 0.2-1.2 Dec 27, 2023 03:37 PM [facility] LIPID PANEL, NON FASTING Specimen Type: SERUM No comment entered. Ordering Provider: KISHA DIAZ AM Report Released Date/Time: Dec 27, 2023 03:31 PM Reporting Lab: [facility] [address] [address] Performing Lab: [address] [address] CHOLESTEROL 153 mg/dL TRIGLYCERIDE 105 mg/dL 0-150 [...] Jan 10, 2024 01:41 PM 55 132/78 [place] [facility] Social History: Smoking Status (Most current) and Tobacco Use (All prior to encounter date) This section includes the most current, and the historical, smoking and tobacco- related health factors from the [place] facility where the Encounter took place. Current Smoking Status This section includes the most current smoking, or tobacco-related health factor, from the [place] facility where the Encounter took place. Date/Time Current Smoking Status Comment Facil ity Dec 27, 2023 03:00 PM VA-TOBACCO QUIT 15 YRS OR MORE [place] [facility] Tobacco Use History This section includes a history of the smoking, or tobacco-related health factors, that were collected on or before the date of the Encounter. The data comes from the [place] facility where the Encounter took place. Date/Time Smoking Status/Tobacco Use Comment F acility Dec 27, 2023 03:00 PM VA-TOBACCO QUIT 15 YRS OR MORE [place] [facility] May 25, 2022 01:30 PM VA-TOBACCO NEVER USED [place] [facility] [place] [facility] May 19, 2021 02:00 PM VA-TOBACCO FORMER USER [facility] [place] [facility] May 19, 2021 02:00 PM VA-TOBACCO QUIT 15 YRS OR MORE [facility] [place] [facility] Mar 24, 2020 08:36 AM VA-TOBACCO FORMER USER [facility] [place] [facility] Mar 24, 2020 08:36 AM VA-TOBACCO QUIT 15 YRS OR MORE [place] [facility] Sep 17, 2017 02:25 PM QUIT TOBACCO USE > 7 YEARS AGO [place] [facility] Encounter Notes: All associated encounter notes This [...] of Service: Dec Facility and or Provider: [facility] Contact Information: PCP of Record: TERRIE DIAZ Next visit with PCP: 03/27/2024 10:30 NHM/OPT/VISUAL IMAGING 03/27/2024 11:00 NHM/OPTOMETRY/BORASKI 12/24/2024 10:30 CWM/NO/DERMATOLOGY HYDROCHLORIC ACID OPERATOR AM 12/25/2024 13:00 CWM/NO/PACT 7 Primary Care May keep copies of this document for up to 14 days and send the original for scanning. /renetta/ IRA SUTTON TINO Signed: 01/10/2024 14:02 IRA SUTTON CNTRL W[facility]N [facility]
--- OUTSIDE RECORDS SUMMARY | 2024-02-05 13:35 | XMS_ITS | Encounter Summary ---
Author Name [facility] [place] Address [address] [place] [address] Care Team Providers Care Health Associate Name Role Phone TERRIE DIAZ Primary Care [...] Cardenas [place] SUPPLEMEN VEL MEDEX [facility] E Mar 21, 2011 [id number] Katlyn BELLO PATIENT [place] SUPPLEMEN VEL MEDEX [facility] E Mar 21, 2011 [id number] Katlyn BELLO PATIENT MEDICARE (WN) MEDICARE (M) PART A Dec 19, 2008 PART A [id number] Katlyn BELLO PATIENT MEDICARE (WN) MEDICARE (M) PART B Dec 19, 2008 PART B [id number] Katlyn BELLO PATIENT Selected Encounter This section includes the information on record at [place] for the Encounter. Date/Time Encounter Type Encounter Description Reason Provider Source Jan 10, 2024 01:00 PM OFF/OP EST JUNE X REQ PHY/QHP PRIMARY CARE/MEDICINE ICD-10-CM H61.23 Impacted cerumen, bilateral ZANVETTOR,YUNI [facility] IHE Encounter Template Text not used by [place] Assessments - Encounter Diagnoses This section includes the primary and secondary diagnoses documented for the Encounter. Date/Time Primary/Secondary Diagnosis Diagnosis Name Provider Source Jan 31, 2024 11:31 AM PRIMARY Impacted cerumen, bilateral ZANVETTOR,YUNI [facility] Plan of Treatment: Future Appointments (+ 6 months) and Future Tests (+/- 45 days) The Plan of Treatment section includes future care activities for the patient from all [place] [facility]. This section includes future appointments and future orders which are active, pending or scheduled. Future Appointments This section includes appointments that were scheduled to occur 6 months from the date of the Encounter, up to a maximum of 20 appointments. The data comes from all [place] treatment [facility]. Appointment Date/Time Appointment Type Appointme nt Facility Name Feb 20, 2024 04:40 PM AMBULATORY - MEDICINE [facility] Mar 24, 2024 09:30 AM AMBULATORY - MEDICINE [facility] Mar 24, 2024 10:00 AM AMBULATORY MEDICINE [facility] Active, Pending, and Scheduled Orders This section includes a listing of several types of active, pending, and scheduled orders, including clinic medications orders, diagnostic test orders, procedure orders and consult orders; where the start date of the order is 45 days before the date of the Encounter or 45 days after the date of theEncounter. The data comes from all [facility]. Test Date/Time Test Type Test Details Facility Name Dec 27, 2023 03:28 PM Consult Order COMMUNITY CARE-PULMONARY Cons Group Sales Representative's Choice [facility] Lab Results: +/- 30 days of the encounter This section includes the Chemistry and Hematology Lab Results on record with [place] for the patient. Radiology Reports and Pathology Reports are provided separately, in subsequent sections. Lab Results This section contains the Chemistry/Hematology Results that were resulted 30 days before or 30 daysafter the date of the Encounter. Date/Time Source Result Type Result - Unit Interpretation Reference Range Comment Dec 27, 2023 03:37 PM [facility] TSH Specimen Type: SERUM No comment entered. Ordering Provider: KISHA DIAZ AM Report Released Date/Time: Dec 27, 2023 03:31 PM Reporting Lab: [facility] [address] [address] Performing Lab: [facility] [address] [address] TSH 0.08 u[IU]/mL L 0.35-5.00 Dec 27, 2023 03:37 PM [facility] HEMOGLOBIN A1C PANEL Specimen Type: [...] Dec 27, 2023 03:31 PM Reporting Lab: [facility] [address] [address] Performing Lab: [address] [address] HEMOGLOBIN A1C 5.2 4.0-5.6 Dec 27, 2023 03:37 PM [facility] CBC Specimen Type: BLOOD No comment entered. Ordering Provider: KISHA DIAZ AM Report Released Date/Time: Dec 27, 2023 03:31 PM Reporting Lab: [facility] [address] [address] Performing Lab: [facility] [address] [address] WBC 7.94 10*3/uL 4.50-11.00 RBC 4.90 10*6/uL 4.23-5.66 HGB 14.7 g/dL 12.8-17 HCT 43.5 39.2-50.4 MCV 88.8 fL 82-99 MCHC 33.8 g/dL 30.8-35.1 PLT 263 10*3/uL 140-360 RDW-CV 13.2 12.0-16.0 MCH 30.0 pg 26.2-32.6 Dec 27, 2023 03:37 PM [facility] BASIC METABOLIC PANEL (non-fasting) Specimen Type: SERUM No comment entered. Ordering Provider: KISHA DIAZ AM Report Released Date/Time: Dec 27, 2023 03:31 PM Reporting Lab: [address] [address] Performing Lab: [address] [address] UREA NITROGEN 17 mg/dL 7-25 GLUCOSE 89 mg/dL 65-100 SODIUM 140 mmol/L 135-145 POTASSIUM 4.0 mmol/L 3.5-5.0 CHLORIDE 107 mmol/L 100-110 CO2 23 meq/L 20-30 CREATININE, Serum 0.96 mg/dL 0.50-1.40 eGFR(CKD-EPI 2020) 81 mL/min >60 Dec 27, 2023 03:37 PM [facility] LIVER FUNCTION Specimen Type: SERUM No comment entered. Ordering Provider: KISHA DIAZ AM Report Released Date/Time: Dec 27, 2023 03:31 PM Reporting Lab: [address] [address] Performing Lab: [address] [address] PROTEIN,TOTAL 6.4 g/dL 6.0-8.3 ALBUMIN 3.8 g/dL 3.5-5.0 ALKALINE PHOSPHATASE 56 U/L 40-150 AST 18 U/L 5-34 ALT 15 U/L BILIRUBIN, TOTAL 0.6 mg/dL 0.2-1.2 Dec 27, 2023 03:37 PM [facility] LIPID PANEL, NON FASTING Specimen Type: SERUM No comment entered. Ordering Provider: KISHA DIAZ AM Report Released Date/Time: Dec 27, 2023 03:31 PM Reporting Lab: [address] [address] Performing Lab: [facility] [place] [facility] [address] [facility] [address] CHOLESTEROL 153 mg/dL TRIGLYCERIDE 105 mg/dL 0-150 [...] Jan 10, 2024 01:41 PM 55 132/78 [place] [facility] Social History: Smoking Status (Most current) and Tobacco Use (All prior to encounter date) This section includes the most current, and the historical, smoking and tobacco- related health factors from the [place] facility where the Encounter took place. Current Smoking Status This section includes the most current smoking, or tobacco-related health factor, from the [place] facility where the Encounter took place. Date/Time Current Smoking Status Comment Edwin ity Dec 27, 2023 03:00 PM VA-TOBACCO [facility] [place] [facility] Tobacco Use History This section includes a history of the smoking, or tobacco-related health factors, that were collected on or before the date of the Encounter. The data comes from the [place] facility where the Encounter took place. Date/Time Smoking Status/Tobacco Use Comment F acdarian Dec 27, 2023 03:00 PM VA-TOBACCO QUIT 15 YRS OR MORE [place] [facility] May 25, 2022 01:30 PM VA-TOBACCO NEVER USED [place] [facility] May 19, 2021 02:00 PM VA-TOBACCO FORMER USER [place] [facility] [place] [facility] May 19, 2021 02:00 PM VA-TOBACCO QUIT 15 YRS OR MORE [facility] [place] [facility] Mar 24, 2020 08:36 AM VA-TOBACCO FORMER USER [facility] [place] [facility] Mar 24, 2020 08:36 AM VA-TOBACCO QUIT 15 YRS OR MORE [place] [facility] [place] [facility] Sep 17, 2017 02:25 PM QUIT TOBACCO USE > 7 YEARS AGO [place] [facility] Encounter Notes: All associated encounter notes This section contains the clinical notes associated to the Encounter. Date/Time Encounter Note(s) Provider Source Jan 10, 2024 01:13 PM PRIMARY CARE OUTPA [facility] NOTE: LOCAL TITLE: AMBULATORY/OUTPATIENT CARE [...] guard, watchful, or easily startled? YES 5. [place] numb or detached from people, activities, or your surroundings? NO 6. [place] guilty or unable to stop blaming yourself [...] RN Signed: 01/10/2024 13:44 JOANA TOM [facility]
[2024-02-05 13:36] VITALS: BMI 29.2
--- NOTE | 2024-02-05 13:36 | MHC.OFFVIS ---
Vital Signs 02/05/24 13:36 Height 6 ft 2.41 in Weight 230 lb BMI 29.2 Intake Visit Reasons: Inj-Left Knee Euflexxa #2 Intake Note: Evert is a 79 year old male who presents to the office for his second dose of Euflexxa gel injection on the left knee. He states that he got mild relief from the 1st injection. He continues with his home exercise program. Allergies No Known Allergies Allergy (Verified 02/05/24 13:36) Medication List - Last Reconciled 02/05/24 by Oniel Javier MD albuterol sulfate 90 mcg/actuation 2 puffs inhalation Q4H PRN 90 days atorvastatin 20 mg PO DAILY 90 days levothyroxine 200 mcg PO DAILY pregabalin 150 mg PO BID 90 days umeclidinium-vilanterol 62.5-25 mcg/actuation (Anoro Ellipta) 1 ea inhalation DAILY PFSH Family History (Updated 10/28/23 @ 16:20 by Sandy Gomez CMA) Mother Coronary artery disease Pulmonary embolism Father Cancer of prostate Social History (Updated 10/28/23 @ 15:33 by Sandy Gomez CMA) Housing: House (With ) Patient Tobacco Use Status: Former Tobacco user (Quit 50 years ago) Cigarette Packs Per Day: 0.5 Years Smoked: 3 e-Cigarette/Vaping Use: Never Used Second Hand Smoke Exposure: No service: Yes Current occupational status: retired Cognitive needs: No Hearing needs: Yes (bilateral hearing aids) Vision needs: Yes (glasses) Physical Exam Vital Signs: BMI result Body Mass Index 29.2 Extrem Other: Left knee examination shows a minimal effusion, palpable crepitus with range of motion, pain with range of motion, no instability Office Procedures AMB Joint Injection/Aspiration Joint Injection/Aspiration Primary Site: left knee Prep: site was prepped using aseptic technique Injected: 20 mg of (Euflexxa viscosupplementation) and 1% plain lidocaine Procedure: The patient tolerated the procedure well Coding 20284 - Large joint Procedure code (CPT) selection complete Results Reviewed Results Reviewed: X-rays of the patient's left knee taken previously show joint space narrowing, subchondral sclerosis, no acute bony abnormalities Assessment & Plan Assessment & Plan (1) Osteoarthritis of left knee: Code(s): M17.12 - Unilateral primary osteoarthritis, left knee Category: Medical Plan Evert presents with left knee pain due to degenerative joint disease. The risks and benefits of the 2nd Euflexxa injection were discussed at length with the patient. The patient wished to proceed. He tolerated the injection well. He will continue with his home exercise program. He will follow up next week as scheduled. Feel free to call me at any time should questions regarding his orthopedic management arise. Orders: Orders AMB Joint Injection/Aspiration Today M17.12 - Unilateral primary osteoarthritis, left knee Coding Level of Care Code Procedure Only Diagnoses Osteoarthritis of left knee M17.12 CPT Codes Coding - 43717 Large joint: 86595 - Large joint ([id number])
== END 2024-02-05 13:55 | disposition home or self-care (01) ==
PROVIDERS: PCP Internal Medicine; Visit Provider Orthopaedic Surgery
DX: M17.12 Unilateral primary osteoarthritis, left knee (principal)
CPT/HCPCS: 20610

== ENCOUNTER → 2024-02-05 13:30 | Outpatient (BNVA) | payer MEDICARE, SELFPAY | PROVIDERS: PCP Internal Medicine; Visit Provider Orthopaedic Surgery | DX: M17.12 Unilateral primary osteoarthritis, left knee (principal) | CPT/HCPCS: 20610; J2003; J7323 ==

== ENCOUNTER 2024-02-11 11:38 | Outpatient (AMB) | payer MEDICARE, SELFPAY ==
[2024-02-11 11:39] VITALS: BMI 29.2
--- NOTE | 2024-02-11 11:39 | MHC.OFFVIS ---
Vital Signs 02/11/24 11:39 Height 6 ft 2.41 in Weight 230 lb BMI 29.2 Intake Visit Reasons: Inj-Left Knee Euflexxa #3 Intake Note: Evert is a 79 year old male who presents for follow up of his left knee pain. He states that he has gotten mild relief from the 1st 2 Euflexxa injections. He continues with his home exercise program. Allergies No Known Allergies Allergy (Verified 02/11/24 11:40) Medication List - Last Reconciled 02/11/24 by Oniel Javier MD albuterol sulfate 90 mcg/actuation 2 puffs inhalation Q4H PRN 90 days atorvastatin 20 mg PO DAILY 90 days levothyroxine 200 mcg PO DAILY pregabalin 150 mg PO BID 90 days umeclidinium-vilanterol 62.5-25 mcg/actuation (Anoro Ellipta) 1 ea inhalation DAILY PFSH Family History (Updated 10/28/23 @ 16:20 by Sandy Gomez CMA) Mother Coronary artery disease Pulmonary embolism Father Cancer of prostate Social History (Updated 10/28/23 @ 15:33 by Sandy Gomez CMA) Housing: House (With ) Patient Tobacco Use Status: Former Tobacco user (Quit 50 years ago) Cigarette Packs Per Day: 0.5 Years Smoked: 3 e-Cigarette/Vaping Use: Never Used Second Hand Smoke Exposure: No service: Yes Current occupational status: retired Cognitive needs: No Hearing needs: Yes (bilateral hearing aids) Vision needs: Yes (glasses) Physical Exam Vital Signs: BMI result Body Mass Index 29.2 Extrem Other: Left knee examination shows a minimal effusion, palpable crepitus with range of motion, pain with range of motion, no instability Office Procedures AMB Joint Injection/Aspiration Joint Injection/Aspiration Primary Site: left knee Prep: site was prepped using aseptic technique Injected: 20 mg of (Euflexxa viscosupplementation) and 1% plain lidocaine Procedure: The patient tolerated the procedure well Coding 91333 - Large joint Procedure code (CPT) selection complete Results Reviewed Results Reviewed: X-rays of the patient's left knee taken previously show joint space, subchondral sclerosis, no acute bony abnormalities Assessment & Plan Assessment & Plan (1) Osteoarthritis of left knee: Code(s): M17.12 - Unilateral primary osteoarthritis, left knee Category: Medical Plan Evert presents for follow-up of his left knee pain due to osteoarthritis. The risks and benefits of a 3rd Euflexxa viscosupplementation injection were discussed at length with the patient. The patient wished to proceed. He tolerated the injection well. He will continue with his home exercise program. He will contact me prior to his follow-up appointment in 3 months should any questions or concerns arise. Feel free to call me at any time should questions regarding his orthopedic management arise. Orders: Orders AMB Joint Injection/Aspiration Today M17.12 - Unilateral primary osteoarthritis, left knee Coding Level of Care Code Procedure Only Diagnoses Osteoarthritis of left knee M17.12 CPT Codes Coding - 99530 Large joint: 10611 - Large joint ([id number])
--- OUTSIDE RECORDS SUMMARY | 2024-02-11 11:41 | XMS_ITS | Continuity of Care Document ---
Author Name [facility] Organization [facility] Care Team Providers Care Supervisor Decorating Name Role Phone [facility] Unavailable Unavailable Problems Combined list of problems from Department of Defense and Veterans Affairs facilities. It does not include entries that were removed or entered in error. Problem Status Onset Date Problem Type Date of Resolution Comments Source AF - Atrial Fibrillation ([facility] [id number]) Active Condition [facility] Benign prostatic hyperplasia Active Condition [facility] COPD - Chronic Obstructive Pulmonary Disease ([facility] [id number]) Active Condition [facility] [place] of uncertain behavior of skin Active Diagnosis [facility] Medications Combined list of outpatient medications [...] PASM RESPIR ATORY (INHAL ATION) ACTIVE 12/27/2024 [id number] TERRIE DIAZ 2023 1 [facility] ALBUTEROL INHALER INHL,ORAL INHALE BY MOUTH RESPIR ATORY (INHAL ATION) ACTIVE Sebastian [facility] 2022 [facility] ATORVASTATI N TAB TAKE BY MOUTH ORAL ACTIVE [facility] CARBAMIDE PEROXIDE 6.5%/GLYCER IN SOLN,OTIC INSTILL 5 DROPS INTO EACH EAR ONCE 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 (OTIC) 01/26/2024 [id number] TERRIE DIAZ 2023 15 [facility] CARBOXYMETH YLCELLULOSE NA 0.5% SOLN,OPH INSTILL 1 DROP INTO EACH EYE FOUR TIMES DAILY NEEDED FOR DRY EYES OPHTHA LMIC 05/16/2023 [id number] Sebastian [facility] 2022 45 [facility] LEVOTHYROXI NE NA 200MCG TAB (SYNTHROID) TAKE ONE TABLET BY MOUTH EVERY MONTH ORAL ACTIVE TERRIE DIAZ 2018 [facility] LEVOTHYROXI NE NA 200MCG TAB (SYNTHROID) TAKE ONE TABLET BY MOUTH EVERY MORNING 30 MINUTES BEFORE BREAKFAS T ORAL ACTIVE TERRIE DIAZ 2017 [facility] MINERAL OIL,LIGHT/P ETROLATUM (PF) OINT,OPH APPLY THIN RIBBON INTO EACH EYE AT BEDTIME FOR DRY EYE OPHTHA LMIC ACTIVE 03/25/2024 [id number] JASONAbebaChiomaEW E 2023 3 [facility] [...] Site Reaction Lot Number CVX Code 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 [address] [address] [facility] HEMOGLOBI N A1C PANEL HEMOGLOBIN A1C/HEMOGLO BIN.TOTAL [...] Dec 27, 2023 03:31 PM Reporting Lab: [address] [address] Performing Lab: [facility] [address] [facility] CBC LEUKOCYTES [#/VOLUME] IN BLOOD BY AUTOMATED COUNT 7.94 10*3/u L 4.50 - 11.00 12/26 Specimen Type: BLOOD No comment entered. Ordering Provider: MANOLO DIAZ Report Released Date/Time: Dec 27, 2023 03:31 PM Reporting Lab: [address] [address] Performing Lab: [address] [address] [facility]RL [facility]N [place] [facility] CBC ERYTHROCYTE S [#/VOLUME] IN BLOOD BY AUTOMATED COUNT 4.90 10*6/u L 4.23 - 5.66 12/26 Specimen Type: BLOOD No comment entered. Ordering Provider: MANOLO DIAZ Report Released Date/Time: Dec 27, 2023 03:31 PM Reporting Lab: [facility] [place] [facility] [address] [facility] [address] Performing Lab: [facility] [place] [facility] [address] [facility] [address] [facility] [place] [facility] [place] CBC HEMOGLOBIN [MASS/VOLUM E] IN BLOOD 14.7 g/dL 12.8 - 17 12/26 Specimen Type: BLOOD No comment entered. Ordering Provider: MANOLO DIAZ Report Released Date/Time: Dec 27, 2023 03:31 PM Reporting Lab: [facility] [place] [address] [address] Performing Lab: [facility] [place] [address] [address] [facility] [place] [facility] [place] CBC HEMATOCRIT [VOLUME FRACTION] OF BLOOD BY AUTOMATED COUNT 43.5 39.2 - 50.4 12/26 Specimen Type: BLOOD No comment entered. Ordering Provider: MANOLO DIAZ Report Released Date/Time: Dec 27, 2023 03:31 PM Reporting Lab: [facility] [place] [address] [address] Performing Lab: [facility] [place] [facility] [place] [address] [facility] [address] [facility] [place] [facility] [place] CBC MCV [ENTITIC VOLUME] BY AUTOMATED COUNT 88.8 fL 82 - 99 12/26 Specimen Type: BLOOD No comment entered. Ordering Provider: MANOLO DIAZ Report Released Date/Time: Dec 27, 2023 03:31 PM Reporting Lab: [facility] [place] [address] [address] Performing Lab: [facility] [address] [facility] [address] [facility] [place] [facility] [place] CBC MCHC [MASS/VOLUM E] BY AUTOMATED COUNT 33.8 g/dL 30.8 - 35.1 12/26 Specimen Type: BLOOD No comment entered. Ordering Provider: MANOLO DIAZ Report Released Date/Time: Dec 27, 2023 03:31 PM Reporting Lab: [facility] [address] [facility] [address] Performing Lab: [facility] [place] [facility] [address] [facility] [address] [facility] [place] [facility] [place] CBC PLATELETS [#/VOLUME] IN BLOOD BY AUTOMATED COUNT 263 10*3/u L 140 - 360 12/26 Specimen Type: BLOOD No comment entered. Ordering Provider: MANOLO DIAZ Report Released Date/Time: Dec 27, 2023 03:31 PM Reporting Lab: [facility] [place] [facility] [address] [facility] [address] Performing Lab: [facility] [place] [facility] [place] [address] [facility] [address] [facility] [place] [facility] [place] CBC ERYTHROCYTE DISTRIBUTIO N WIDTH [RATIO] BY AUTOMATED COUNT 13.2 12.0 - 16.0 12/26 Specimen Type: BLOOD No comment entered. Ordering Provider: MANOLO DIAZ Report Released Date/Time: Dec 27, 2023 03:31 PM Reporting Lab: [facility] [place] [facility] [address] [facility] [address] Performing Lab: [facility] [place] [facility] [place] [address] [facility] [address] [facility] [place] [facility] [place] CBC MCH [ENTITIC MASS] BY AUTOMATED COUNT 30.0 pg 26.2 - 32.6 12/26 Specimen Type: BLOOD No comment entered. Ordering Provider: MANOLO DIAZ Report Released Date/Time: Dec 27, 2023 03:31 PM Reporting Lab: [facility] [place] [facility] [place] [address] [facility] [address] Performing Lab: [facility] [place] [facility] [place] [address] [facility] [address] [facility] [place] [facility] [place] LIVER FUNCTION PROTEIN [MASS/VOLUM E] IN SERUM OR PLASMA 6.4 g/dL 6.0 - 8.3 12/26 Specimen Type: SERUM No comment entered. Ordering Provider: MANOLO DIAZ Report Released Date/Time: Dec 27, 2023 03:31 PM Reporting Lab: [facility] [place] [facility] [address] [facility] [address] Performing Lab: [facility] [place] [facility] [place] [address] [facility] [address] [facility] [place] [facility] [place] LIVER FUNCTION ALBUMIN [MASS/VOLUM E] IN SERUM OR PLASMA 3.8 g/dL 3.5 - 5.0 12/26 Specimen Type: SERUM No comment entered. Ordering Provider: MANOLO DIAZ Report Released Date/Time: Dec 27, 2023 03:31 PM Reporting Lab: [facility] [place] [facility] [address] [facility] [address] Performing Lab: [facility] [place] [facility] [address] [facility] [address] [facility] [place] [facility] [place] LIVER FUNCTION ALKALINE PHOSPHATASE [ENZYMATIC ACTIVITY/VO LUME] IN SERUM OR PLASMA 56 U/L 40 - 150 12/26 Specimen Type: SERUM No comment entered. Ordering Provider: MANOLO DIAZ Report Released Date/Time: Dec 27, 2023 03:31 PM Reporting Lab: [facility] [place] [facility] [address] [facility] [address] Performing Lab: [facility] [place] [facility] [place] [address] [facility] [address] [facility] [place] [facility] [place] LIVER FUNCTION ASPARTATE AMINOTRANSF ERASE [ENZYMATIC ACTIVITY/VO LUME] IN SERUM OR PLASMA 18 U/L 5 - 34 12/26 Specimen Type: SERUM No comment entered. Ordering Provider: MANOLO DIAZ Report Released Date/Time: Dec 27, 2023 03:31 PM Reporting Lab: [facility] [place] [facility] [address] [facility] [address] Performing Lab: [facility] [address] [facility] [address] [facility] [place] [facility] [place] LIVER FUNCTION ALANINE AMINOTRANSF ERASE [ENZYMATIC ACTIVITY/VO LUME] IN SERUM OR PLASMA 15 U/L 12/26 Specimen Type: SERUM No comment entered. Ordering Provider: MANOLO DIAZ Report Released Date/Time: Dec 27, 2023 03:31 PM Reporting Lab: [facility] [place] [facility] [address] [facility] [address] Performing Lab: [facility] [place] [facility] [address] [facility] [address] [facility] [place] [facility] LIVER FUNCTION BILIRUBIN.T OTAL [MASS/VOLUM E] IN SERUM OR PLASMA 0.6 mg/dL 0.2 - 1.2 12/26 Specimen Type: SERUM No comment entered. Ordering Provider: MANOLO DIAZ Report Released Date/Time: Dec 27, 2023 03:31 PM Reporting Lab: [facility] [place] [facility] [address] [facility] [address] Performing Lab: [facility] [place] [address] [address] [facility] [place] [facility] BASIC METABOLIC PANEL (non-fast ing) UREA NITROGEN [MASS/VOLUM E] IN SERUM OR PLASMA 17 mg/dL 7 - 25 12/26 Specimen Type: SERUM No comment entered. Ordering Provider: MANOLO DIAZ Report Released Date/Time: Dec 27, 2023 03:31 PM Reporting Lab: [facility] [address] [facility] [address] Performing Lab: [facility] [place] [address] [address] [facility] [place] [facility] BASIC METABOLIC PANEL (non-fast ing) GLUCOSE [MASS/VOLUM E] IN SERUM OR PLASMA 89 mg/dL 65 - 100 12/26 Specimen Type: SERUM No comment entered. Ordering Provider: MANOLO DIAZ Report Released Date/Time: Dec 27, 2023 03:31 PM Reporting Lab: [facility] [address] [address] Performing Lab: [address] [address] [facility] BASIC METABOLIC PANEL (non-fast ing) SODIUM [MOLES/VOLU ME] IN SERUM OR PLASMA 140 mmol/L 135 - 145 12/26 Specimen Type: SERUM No comment entered. Ordering Provider: MANOLO DIAZ Report Released Date/Time: Dec 27, 2023 03:31 PM Reporting Lab: [address] [address] Performing Lab: [address] [address] [facility] BASIC METABOLIC PANEL (non-fast ing) POTASSIUM [MOLES/VOLU ME] IN SERUM OR PLASMA 4.0 mmol/L 3.5 - 5.0 12/26 Specimen Type: SERUM No comment entered. Ordering Provider: MANOLO DIAZ Report Released Date/Time: Dec 27, 2023 03:31 PM Reporting Lab: [facility] [address] [address] Performing Lab: [facility] [address] [address] [facility] BASIC METABOLIC PANEL (non-fast ing) CHLORIDE [MOLES/VOLU ME] IN SERUM OR PLASMA 107 mmol/L 100 - 110 12/26 Specimen Type: SERUM No comment entered. Ordering Provider: MANOLO DIZA Report Released Date/Time: Dec 27, 2023 03:31 PM Reporting Lab: [address] [address] Performing Lab: [facility] [address] [facility] [address] [facility] BASIC METABOLIC PANEL (non-fast ing) CARBON DIOXIDE, TOTAL [MOLES/VOLU ME] IN SERUM OR PLASMA 23 meq/L 20 - 30 12/26 Specimen Type: SERUM No comment entered. Ordering Provider: MANOLO DIAZ Report Released Date/Time: Dec 27, 2023 03:31 PM Reporting Lab: [facility] [address] [facility] [address] Performing Lab: [address] [address] [facility] BASIC METABOLIC PANEL (non-fast ing) CREATININE [MASS/VOLUM E] IN SERUM OR PLASMA 0.96 mg/dL 0.50 - 1.40 12/26 Specimen Type: SERUM No comment entered. Ordering Provider: MANOLO DIAZ Report Released Date/Time: Dec 27, 2023 03:31 PM Reporting Lab: [address] [address] Performing Lab: [address] [address] [facility] BASIC METABOLIC PANEL (non-fast ing) GLOMERULAR FILTRATION RATE/1.73 SQ M.PREDICTED [VOLUME RATE/AREA] IN SERUM, PLASMA OR BLOOD BY CREATININE- BASED FORMULA (CKD-EPI 2020) 81 mL/min 60 12/26 Specimen Type: SERUM No comment entered. Ordering Provider: MANOLO DIAZ Report Released Date/Time: Dec 27, 2023 03:31 PM Reporting Lab: [address] [address] Performing Lab: [address] [address] [facility] LIPID PANEL, NON FASTING CHOLESTEROL [MASS/VOLUM E] IN SERUM OR PLASMA 153 mg/dL 12/26 Specimen Type: SERUM No comment entered. Ordering Provider: MANOLO DIAZ Report Released Date/Time: Dec 27, 2023 03:31 PM Reporting Lab: [facility] [place] [facility] [address] [facility] [address] Performing Lab: [facility] [place] [facility] [address] [facility] [address] [facility] [place] [facility] LIPID PANEL, NON FASTING TRIGLYCERID E [MASS/VOLUM E] IN SERUM OR PLASMA 105 mg/dL 0 - 150 12/26 Specimen Type: SERUM No comment entered. Ordering Provider: MANOLO DIAZ Report Released Date/Time: Dec 27, 2023 03:31 PM Reporting Lab: [facility] [place] [facility] [address] [facility] [address] Performing Lab: [facility] [place] [address] [address] [facility] [place] [facility] LIPID PANEL, NON FASTING CHOLESTEROL IN LDL [MASS/VOLUM E] IN SERUM OR PLASMA BY CALCULATION 86 mg/dL 0 - 129 12/26 Specimen Type: SERUM No comment entered. Ordering Provider: MANOLO DIAZ Report Released Date/Time: Dec 27, 2023 03:31 PM Reporting Lab: [facility] [place] [facility] [address] [facility] [address] Performing Lab: [facility] [place] [address] [address] [facility] [place] [facility] LIPID PANEL, NON FASTING CHOLESTEROL .TOTAL/CHOL ESTEROL IN HDL [MASS RATIO] IN SERUM OR PLASMA 3.3 12/26 Specimen Type: SERUM No comment entered. Ordering Provider: MANOLO DIAZ Report Released Date/Time: Dec 27, 2023 03:31 PM Reporting Lab: [facility] [place] [facility] [address] [facility] [address] Performing Lab: [facility] [place] [address] [address] [facility] [place] [facility] LIPID PANEL, NON FASTING CHOLESTEROL IN HDL [MASS/VOLUM E] IN SERUM OR PLASMA 46 mg/dL 40 - 60 12/26 Specimen Type: SERUM No comment entered. Ordering Provider: MANOLO DIAZ Report Released Date/Time: Dec 27, 2023 03:31 PM Reporting Lab: [facility] [address] [facility] [address] Performing Lab: [facility] [address] [address] [facility] THYROID T4 FREE(FT4) THYROXINE (T4) FREE [MASS/VOLUM E] IN SERUM OR PLASMA 1.43 ng/dL 0.6 - 1.6 05/25 Specimen Type: SERUM No comment entered. Ordering Provider: MANOLO DIAZ Report Released Date/Time: May 14, 2022 02:20 PM Reporting Lab: [address] [address] Performing Lab: [facility] [address] [facility] [address] [facility] BASIC METABOLIC PANEL (non-fast ing) UREA NITROGEN [MASS/VOLUM E] IN SERUM OR PLASMA 12 mg/dL 7 - 25 05/25 Specimen Type: SERUM No comment entered. Ordering Provider: MANOLO DIAZ Report Released Date/Time: May 14, 2022 02:20 PM Reporting Lab: [facility] [address] [facility] [address] Performing Lab: [facility] [address] [facility] [address] [facility] BASIC METABOLIC PANEL (non-fast ing) GLUCOSE [MASS/VOLUM E] IN SERUM OR PLASMA 99 mg/dL 65 - 100 05/25 Specimen Type: SERUM No comment entered. Ordering Provider: MANOLO DIAZ Report Released Date/Time: May 14, 2022 02:20 PM Reporting Lab: [facility] [address] [address] Performing Lab: [facility] [place] [facility] [address] [facility] [address] [facility]RL W[facility]N [facility] BASIC METABOLIC PANEL (non-fast ing) SODIUM [MOLES/VOLU ME] IN SERUM OR PLASMA 140 mmol/L 135 - 145 05/25 Specimen Type: SERUM No comment entered. Ordering Provider: MANOLO DIAZ Report Released Date/Time: May 14, 2022 02:20 PM Reporting Lab: [facility]RL [place] [place] [facility] [address] [facility] [address] Performing Lab: [facility] CENTERRATMORE COMMUNITY HOSPITALTRN [facility]ITALUSE[facility] [address] [facility] [address] [facility] BASIC METABOLIC PANEL (non-fast ing) POTASSIUM [MOLES/VOLU ME] IN SERUM OR PLASMA 4.2 mmol/L 3.5 - 5.0 05/25 Specimen Type: SERUM No comment entered. Ordering Provider: MANOLO DIAZ Report Released Date/Time: May 14, 2022 02:20 PM Reporting Lab: [facility] CENTERRATMORE COMMUNITY HOSPITALTRN [facility]ITALUSEAL[facility] [address] [facility] [address] Performing Lab: [facility]ENTERRL TRN [facility]ITALUSEAL[facility] [address] [facility] [address] [facility]ENTERRST[facility]INC[facility]N [facility]ITALUSE [facility] BASIC METABOLIC PANEL (non-fast ing) CHLORIDE [MOLES/VOLU ME] IN SERUM OR PLASMA 106 mmol/L 100 - 110 05/25 Specimen Type: SERUM No comment entered. Ordering Provider: MANOLO DIAZ Report Released Date/Time: May 14, 2022 02:20 PM Reporting Lab: [facility]ENTERRL TRN [facility]OSPITALUSETS [facility] [place] [address] [facility] [address] Performing Lab: [facility]ENTERRL TRN [facility]ITALUSE[facility] [address] [facility] [address] [facility]ENTERRST[facility]INC[facility]N [facility] BASIC METABOLIC PANEL (non-fast ing) CARBON DIOXIDE, TOTAL [MOLES/VOLU ME] IN SERUM OR PLASMA 23 meq/L 20 - 30 05/25 Specimen Type: SERUM No comment entered. Ordering Provider: MANOLO DIAZ Report Released Date/Time: May 14, 2022 02:20 PM Reporting Lab: [facility] [place] [facility] [address] [facility] [address] Performing Lab: [facility] [place] [facility] [place] [address] [facility] [address] [facility] [place] [facility] BASIC METABOLIC PANEL (non-fast ing) CREATININE [MASS/VOLUM E] IN SERUM OR PLASMA 1.03 mg/dL 0.50 - 1.40 05/25 Specimen Type: SERUM No comment entered. Ordering Provider: MANOLO DIAZ Report Released Date/Time: May 14, 2022 02:20 PM Reporting Lab: [facility] [place] [address] [address] Performing Lab: [facility] [place] [address] [address] [facility]RL [place] [facility] [place] BASIC METABOLIC PANEL (non-fast ing) GLOMERULAR FILTRATION RATE/1.73 SQ M.PREDICTED [VOLUME RATE/AREA] IN SERUM, PLASMA OR BLOOD BY CREATININE- BASED FORMULA (CKD-EPI) 75 mL/min 60 05/25 Specimen Type: SERUM No comment entered. Ordering Provider: MANOLO DIAZ Report Released Date/Time: May 14, 2022 02:20 PM Reporting Lab: [facility] [address] [address] Performing Lab: [facility] [place] [address] [address] [facility]RL [facility] [place] [facility] LIPID PANEL FASTING CHOLESTEROL [MASS/VOLUM E] IN SERUM OR PLASMA 128 mg/dL 7 - 199 05/25 Specimen Type: SERUM No comment entered. Ordering Provider: MANOLO DIAZ Report Released Date/Time: May 14, 2022 02:20 PM Reporting Lab: [facility] [place] [address] [address] Performing Lab: [facility] [place] [address] [address] [facility]ENTERRL [place]N [place] [facility] LIPID PANEL FASTING TRIGLYCERID E [MASS/VOLUM E] IN SERUM OR PLASMA 72 mg/dL 0 - 150 05/25 Specimen Type: SERUM No comment entered. Ordering Provider: MANOLO DIAZ Report Released Date/Time: May 14, 2022 02:20 PM Reporting Lab: [facility]ENTERRATMORE COMMUNITY HOSPITALTRN [place] [facility] [address] [facility] [address] Performing Lab: [facility]ENTERRL [place] [facility] [address] [facility] [address] [facility]ENTERR[facility] [place] [facility] LIPID PANEL FASTING CHOLESTEROL IN LDL [MASS/VOLUM E] IN SERUM OR PLASMA BY CALCULATION 71 mg/dL 0 - 129 05/25 Specimen Type: SERUM No comment entered. Ordering Provider: MANOLO DIAZ Report Released Date/Time: May 14, 2022 02:20 PM Reporting Lab: [facility] [place] [address] [address] Performing Lab: [facility] [place] [address] [address] [facility] LIPID PANEL FASTING CHOLESTEROL .TOTAL/CHOL ESTEROL IN HDL [MASS RATIO] IN SERUM OR PLASMA 3.0 05/25 Specimen Type: SERUM No comment entered. Ordering Provider: MANOLO DIAZ Report Released Date/Time: May 14, 2022 02:20 PM Reporting Lab: [facility] [place] [address] [address] Performing Lab: [facility] [place] [facility] [place] [address] [facility] [address] [facility] [place] [facility] LIPID PANEL FASTING CHOLESTEROL IN HDL [MASS/VOLUM E] IN SERUM OR PLASMA 43 mg/dL 40 - 60 05/25 Specimen Type: SERUM No comment entered. Ordering Provider: MANOLO DIAZ Report Released Date/Time: May 14, 2022 02:20 PM Reporting Lab: [facility] [place] [address] [address] Performing Lab: [facility] [place] [facility] [address] [facility] [address] [facility] [place] [facility] TSH THYROTROPIN [UNITS/VOLU ME] IN SERUM OR PLASMA < 0.06u[ IU]/mL 0.35 - 5.00 05/25 Specimen Type: SERUM No comment entered. Ordering Provider: MANOLO DIAZ Report Released Date/Time: May 14, 2022 02:20 PM Reporting Lab: [facility] [place] [facility] [address] [facility] [address] Performing Lab: [facility] [place] [facility] [address] [facility] [address] [facility] Vital [...] [facility] Out[facility] Encounter [id number] 08/28 [facility] Encounter [id number] 10/24 [facility] Encounter [id number] 10/24 [facility] Encounter [id number] 10/30 [facility] Encounter [id number] 11/19 [facility] Encounter [id number] 12/24 [facility] OFFICE O/P EST MOD 30-39 MIN [id number] Diagnos is: ICD-10- CM D48.5 Neoplas m of uncerta in behavio r of skin
GABRIELLA ALVARADO 01/01 [facility] Out[facility] Encounter [id number] BOWIE MD 01/07 [facility] Out[facility] Encounter [id number] Diagnos is: ICD-10- CM Z02.89 Encount er for other adminis trative examina tions<b r/> ASHLEY MUELLER A 01/24 [facility] Out[facility] Encounter [id number] Diagnos is: ICD-10- CM Z02.89 Encount er for other adminis trative examina tions<b r/> ASHLEY MUELLER A 03/14 [facility] [place] [place] [id number] Diagnos is: ICD-10- CM H40.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
DOMINIC ALBRECHT 03/25 [facility] FIT SPECTACLES MULTIFOCAL [id number] Diagnos is: ICD-10- CM Z46.0 Encount er for fit/adj st of spectac les and contact lenses< br/> DOMINIC ALBRECHT 03/26 [facility] Out[facility] Encounter [id number] TAYLOR PRORAS ISTOPHER E 05/13 [facility] Out[facility] Encounter [id number] 05/14 [facility] Out[facility] Encounter [id number] 05/15 [facility] Outpatient Encounter [id number] Diagnos is: ICD-10- CM Z02.89 Encount er for other adminis trative examina tions<b r/> ASHLEY MUELLER 07/03 [facility] Outpatient Encounter [id number] 12/25 [facility] OFFICE O/P EST MOD 30 MIN [id number] Diagnos is: ICD-10- CM Z86.018 Persona l history of other benign neoplas m
GABRIELLA ALVARADO 12/25 [facility] [place] OFFICE O/P EST MOD 30 MIN [id number] Diagnos is: ICD-10- CM I48.91 Unspeci fied atrial fibrill ation<b r/> Terri DIAZ 12/26 [facility] [place] OFF/OP EST MAY X REQ PHY/QHP [id number] 1. Diagnos is: ICD-10- CM H61.23 Impacte d quincy forrester al
NIRMAL TOM 01/09 [facility] [place] Outpatient Encounter [id number] 1.01/09 [facility] [place] Social History Combined list of available smoking, tobacco, and other social history from Department of Defense and Veterans Affairs facilities. Social History Type Response Date Comment [facility] e Tobacco smoking status [facility] FORMER USER 12/27/2023 [facility] [place] of [facility]27[facility]2023 [facility] [place] [facility] History of tobacco [facility] 05/25/2022 [facility] [place] [facility] History of [facility] 05/19/2021 [facility] [place] [facility] of [facility] History of tobacco use QUIT TOBACCO USE > 7 YEARS AGO 09/17/2017 [facility] Plan of Care List of future care activities from Department of [facility] Affairs facilities. Additional future care activities may be listed in the Assessment and Plan section. Date/Time Care Activity Care Activity Detail Facili ty 02/20/2024 AMBULATORY - MEDICINE AMBULATORY - MEDICI NE [facility] [place] [facility] 03/24/2024 AMBULATORY - MEDIC[facility] 03/24/2024 AMBULATORY - MEDICINE [facility] - [facility]
--- OUTSIDE RECORDS SUMMARY | 2024-02-11 11:41 | XMS_ITS | Encounter Summary ---
Author Name [facility] [place] Address [address] [place] [address] Care Team Providers Care Filter Machine Operator Name Role Phone TERRIE DIAZ Primary Care [...] VEL MEDEX BRONZ E Mar 21, 2011 [id number] [phone] Katlyn BELLO PATIENT [facility] MEDICARE SUPPLEMEN VEL MEDEX BRONZ E Mar 21, 2011 [id number] Katlyn BELLO PATIENT MEDICARE (WNR) MEDICARE (M) PART A Dec 19, 2008 PART A [id number] [phone] Katlyn BELLO PATIENT MEDICARE (WNR) MEDICARE (M) PART B Dec 19, 2008 PART B [id number] Katlyn BELLO PATIENT Selected Encounter This section includes the information on record at [place] for the Encounter. Date/Time Encounter Type Encounter Description Reason Pro vider Source Dec 26, 2023 12:00 AM Outpatient Encounter EVENT (HISTORICAL) IHE Encounter Template Text not used by [place] Plan of Treatment: Future Appointments (+ 6 months) and Future Tests (+/- 45 days) The Plan of Treatment section includes future care activities for the patient from all [place] [facility]. This section includes future appointments and future orders which are active, pending or scheduled. Future Appointments This section includes appointments that were scheduled to occur 6 months from the date of the Encounter, up to a maximum of 20 appointments. The data comes from all [facility] facilities. Appointment Date/Time Appointment Type Appointme nt Facility Name Dec 27, 2023 03:00 PM AMBULATORY - MEDICINE [facility] Jan 10, 2024 01:00 PM AMBULATORY MEDICINE [facility] Feb 20, 2024 04:40 PM AMBULATORY MEDICINE [facility] Mar 24, 2024 09:30 AM AMBULATORY MEDICINE [facility] Mar 24, 2024 10:00 AM AMBULATORY MEDICINE [facility] Active, Pending, and Scheduled Orders This section includes a listing of several types of active, pending, and scheduled orders, including clinic medications orders, diagnostic test orders, procedure orders and consult orders; where the start date of the order is 45 days before the date of the Encounter or 45 days after the date of theEncounter. The data comes from all [facility]. Test Date/Time Test Type Test Details Facility Name Dec 27, 2023 03:28 PM Consult Order COMMUNITY CARE-PULMONARY Cons [employer] Operator's Choice [facility] Lab Results: +/- 30 days of the encounter This section includes the Chemistry and Hematology Lab Results on record with [place] for the patient. Radiology Reports and Pathology Reports are provided separately, in subsequent sections. Lab Results This section contains the Chemistry/Hematology Results that were resulted 30 days before or 30 daysafter the date of the Encounter. Date/Time Source Result Type Result - Unit Interpretation Reference Range Comment Dec 27, 2023 03:37 PM [facility] TSH Specimen Type: SERUM No comment entered. Ordering Provider: KISHA DIAZ AM Report Released Date/Time: Dec 27, 2023 03:31 PM Reporting Lab: [facility] [address] [address] Performing Lab: [address] [address] TSH 0.08 u[IU]/mL L 0.35-5.00 Dec 27, 2023 03:37 PM [facility] HEMOGLOBIN A1C PANEL Specimen Type: BLOOD [...] Dec 27, 2023 03:31 PM Reporting Lab: [address] [address] Performing Lab: [address] [address] HEMOGLOBIN A1C 5.2 4.0-5.6 Dec 27, 2023 03:37 PM [facility] CBC Specimen Type: BLOOD No comment entered. Ordering Provider: KISHA DIAZ AM Report Released Date/Time: Dec 27, 2023 03:31 PM Reporting Lab: [address] [address] Performing Lab: [address] [address] WBC 7.94 10*3/uL 4.50-11.00 RBC 4.90 10*6/uL 4.23-5.66 HGB 14.7 g/dL 12.8-17 HCT 43.5 39.2-50.4 MCV 88.8 fL 82-99 MCHC 33.8 g/dL 30.8-35.1 PLT 263 10*3/uL 140-360 RDW-CV 13.2 12.0-16.0 MCH 30.0 pg 26.2-32.6 Dec 27, 2023 03:37 PM [facility] LIVER FUNCTION Specimen Type: SERUM No comment entered. Ordering Provider: KISHA DIAZ AM Report Released Date/Time: Dec 27, 2023 03:31 PM Reporting Lab: [facility] [address] [address] Performing Lab: [address] [address] PROTEIN,TOTAL 6.4 g/dL 6.0-8.3 ALBUMIN 3.8 g/dL 3.5-5.0 ALKALINE PHOSPHATASE 56 U/L 40-150 AST 18 U/L 5-34 ALT 15 U/L BILIRUBIN, TOTAL 0.6 mg/dL 0.2-1.2 Dec 27, 2023 03:37 PM [facility] BASIC METABOLIC PANEL (non-fasting) Specimen Type: SERUM No comment entered. Ordering Provider: KISHA DIAZ AM Report Released Date/Time: Dec 27, 2023 03:31 PM Reporting Lab: [facility] [address] [address] Performing Lab: [address] [address] UREA NITROGEN 17 mg/dL 7-25 GLUCOSE 89 mg/dL 65-100 SODIUM 140 mmol/L 135-145 POTASSIUM 4.0 mmol/L 3.5-5.0 CHLORIDE 107 mmol/L 100-110 CO2 23 meq/L 20-30 CREATININE, Serum 0.96 mg/dL 0.50-1.40 eGFR(CKD-EPI 2020) 81 mL/min >60 Dec 27, 2023 03:37 PM [facility] LIPID PANEL, NON FASTING Specimen Type: SERUM No comment entered. Ordering Provider: KISHA DIAZ AM Report Released Date/Time: Dec 27, 2023 03:31 PM Reporting Lab: [address] [address] Performing Lab: [address] [address] CHOLESTEROL 153 mg/dL TRIGLYCERIDE 105 mg/dL 0-150 LDL calculated 86 mg/dL 0-129 CHOL/HDL 3.3 HDL CHOLESTEROL 46 mg/dL 40-60 Social History: Smoking Status (Most current) and Tobacco Use (All prior to encounter date) This section includes the most current, and the historical, smoking and tobacco- related health factors from the [place] facility where the Encounter took place. Current Smoking Status This section includes the most current smoking, or tobacco-related health factor, from the [place] facility where the Encounter took place. Date/Time Current Smoking Status Comment Facil ity May 25, 2022 01:30 PM [facility]-TOBACCO NEVER USED [facility] Tobacco Use History This section includes a history of the smoking, or tobacco-related health factors, that were collected on or before the date of the Encounter. The data comes from the [place] facility where the Encounter took place. Date/Time Smoking Status/Tobacco Use Comment F acility May 19, 2021 02:00 PM VA-TOBACCO FORMER US[place] [facility] [place] [facility] May 19, 2021 02:00 PM VA-TOBACCO QUIT 15 YRS OR MORE [place] [facility] [place] [place] [facility] Mar 24, 2020 08:36 AM VA-TOBACCO FORMER USER [place] [facility] [place] [facility] Mar 24, 2020 08:36 AM VA-TOBACCO QUIT 15 YRS OR MORE [place] [facility] [place] [facility] Sep 17, 2017 02:25 PM QUIT TOBACCO USE > 7 YEARS AGO [facility] Encounter Notes: All associated encounter notes This section contains the clinical notes associated to the Encounter. Date/Time Encounter Note(s) Provider Source Dec 26, 2023 12:00 AM NONVA DIAGNOSTIC S [place] REPORT: LOCAL TITLE: NON-VA DIAGNOSTICS STANDARD TITLE: NONVA DIAGNOSTIC STUDY REPORT DATE OF NOTE: DEC 26, 2023 ENTRY DATE: FEB 07, 2024@07:35:08 AUTHOR: AUDREY ERICKSON MA COSIGNER: URGENCY: STATUS: COMPLETED VistA Imaging - Scanned Document SCANNED DOCUMENT SIGNATURE NOT REQUIRED Electronically Filed: 02/07/2024 by: AUDREY ERICKSON STRAP MAKER AUDREY ERICKSON [facility]
== END 2024-02-11 12:11 | disposition home or self-care (01) ==
PROVIDERS: PCP Internal Medicine; Visit Provider Orthopaedic Surgery
DX: M17.12 Unilateral primary osteoarthritis, left knee (principal)
CPT/HCPCS: 20610

== ENCOUNTER → 2024-02-11 11:38 | Outpatient (BNVA) | payer MEDICARE, SELFPAY | PROVIDERS: PCP Internal Medicine; Visit Provider Orthopaedic Surgery | DX: M17.12 Unilateral primary osteoarthritis, left knee (principal) | CPT/HCPCS: 20610; J2003; J7323 ==

== ENCOUNTER 2024-04-23 15:36 | Outpatient (AMB) | payer MEDICARE, SELFPAY ==
--- NOTE | 2024-04-23 15:56 | AM.OFFVISMDC ---
Intake Vital Signs 04/23/24 16:05 Height 6 ft 2.41 in Weight 234 lb BMI 29.7 BP 132/73 Blood Pressure Location Lt brachial Position Sitting Respiration 16 Pulse 82 Pulse Source Pulse Oximeter Temp 98.7 F Temp Source Oral Pulse Oximetry (%) 96 Oxygen Delivery Method Room Air Intake Visit Reasons: mawv Intake Note: patient here for wiwv Insurance Billing Specialist Required: No Allergies No Known Allergies Allergy (Verified 04/23/24 16:00) Medication List - Last Reconciled 05/03/24 by Aaliyah Carrillo MD albuterol sulfate 90 mcg/actuation 2 puffs inhalation Q4H PRN 90 days atorvastatin 20 mg PO DAILY 90 days levothyroxine 200 mcg PO DAILY pregabalin 150 mg PO BID 90 days umeclidinium-vilanterol 62.5-25 mcg/actuation (Anoro Ellipta) 1 inh inhalation Q24H Do you need a note to return to daycare/school/sports/work: No HPI HPI Comments History of Present Illness Details The patient is a 79 year old male with a past medical history of metastatic papillary thyroid cancer, hypothyroid, hyperlipidemia, arthritis presenting for [facility] Thyroid cancer: Endocrine, Dr Rajan monitoring. u/s and blood work every six months. Continued levothyroxine. MSK: Underwent back surgery at [place]. Back pain is decreased. Stable bilateral leg pain, shooting. Tried gabapentin in the past, duloxetine. GI:globus, difficulty swallowing at times, tightness. Has gastroenterology consult scheduled for June. Has seen Dr Landers CV: On atorvastatin. Chronic intermittent transient shortness of breath. Afib or similar suspected. Declined AC. Underwent thorough cardiopulmonary work up. Rsp: Follows with Dr Hardwick. On Anoro. stable. CT 12/2023 with stabl b/l GGO and pulm nodules Follows with urology with [facility]. Colonoscopy UTD Dermatology-Samanta Allen HRA reviewed Care team noted above Independent ADLS No falls 3/3 Memory ROS see HPI PHYSICAL EXAM: GENERAL: Alert and oriented x 3. NAD EYES: EOMI. Anicteric. HENT: Moist mucous membranes. No scleral icterus. No cervical lymphadenopathy. LUNGS: Clear to auscultation bilaterally. CARDIOVASCULAR: Regular rate and rhythm. No murmur. No JVD. ABDOMEN: Soft, non-tender +bs EXTREMITIES: No edema. Non-tender. SKIN: No rashes or lesions. Warm. NEUROLOGIC: No focal neurological deficits. CN II-XII grossly intact PSYCHIATRIC: Cooperative. Appropriate mood and affect [facility] Family History Mother Coronary artery disease Pulmonary embolism Father Cancer of prostate Social History Housing: House Patient Tobacco Use Status: Former Tobacco user Cigarette Packs Per Day: 0.5 Years Smoked: 3 e-Cigarette/Vaping Use: Never Used Second Hand Smoke Exposure: No service: Yes Current occupational status: retired Cognitive needs: No Hearing needs: Yes (bilateral hearing aids) Vision needs: Yes (glasses) Physical Exam Vital Signs: Last Vital Signs Temp 98.7 F 04/23/24 16:05 Pulse 82 04/23/24 16:05 Resp 16 04/23/24 16:05 BP 132/73 04/23/24 16:05 Pulse Ox 96 04/23/24 16:05 Oxygen Delivery Method Room Air 04/23/24 16:05 BMI result Body Mass Index 29.7 Assessment & Plan Assessment & Plan (1) Medicare annual wellness visit, subsequent: Code(s): Z00.00 - Encounter for general adult medical examination without abnormal findings Plan: see HPI HRA scanned Orders: Orders Complete Blood Count Auto Diff 04/24/24 Z13.0 - Encounter for screening for diseases of the blood and blood-forming organs and certain disorders involving the immune mechanism, E78.5 - Hyperlipidemia, unspecified, Z13.228 - Encounter for screening for other metabolic disorders Comprehensive Met. Panel 04/24/24 Z13.0 - Encounter for screening for diseases of the blood and blood-forming organs and certain disorders involving the immune mechanism, E78.5 - Hyperlipidemia, unspecified, Z13.228 - Encounter for screening for other metabolic disorders Lipid Panel 04/24/24 Z13.0 - Encounter for screening for diseases of the blood and blood-forming organs and certain disorders involving the immune mechanism, E78.5 - Hyperlipidemia, unspecified, Z13.228 - Encounter for screening for other metabolic disorders Hemoglobin A1c 04/24/24 Z13.0 - Encounter for screening for diseases of the blood and blood-forming organs and certain disorders involving the immune mechanism, E78.5 - Hyperlipidemia, unspecified, Z13.228 - Encounter for screening for other metabolic disorders Medications: New umeclidinium-vilanterol 62.5-25 mcg/actuation (Anoro Ellipta) 1 inh inhalation Q24H 60 ea 0RF Refilled atorvastatin 20 mg PO DAILY 90 tabs 3RF 90 days Coding Level of Care Code Medicare Subsequent (G0439) Est Pt Level 4 (85244) Diagnoses Medicare annual wellness visit, subsequent Z00.00
[2024-04-23 16:05] VITALS: BP 132/73; PULSE 82; RESP 16; TEMP 37.1; O2SAT 96; BMI 29.7
--- OUTSIDE RECORDS SUMMARY | 2024-04-23 19:02 | XMS_ITS ---
Author Name [facility] [place] Address [address] [place] [address] Care Team Providers Care Heel Slugger Name Role Phone TERRIE DIAZ Primary Care [...] VEL MEDEX BRONZ E [birth year] 2011 [id number] [phone] Katlyn BELLO PATIENT [facility] MEDICARE SUPPLEMEN VEL MEDEX BRONZ E Mar 21, 2011 [id number] Katlyn BELLO PATIENT MEDICARE (WN) MEDICARE (M) PART A Dec 19, 2008 PART A [id number] Katlyn BELLO PATIENT MEDICARE ([facility]) MEDICARE (M) PART B Dec 19, 2008 PART B [id number] Katlyn BELLO PATIENT Selected Encounter This section includes the information on record at [place] for the Encounter. Date/Time Encounter Type Encounter Description Reason Provider Source Mar 25, 2024 08:53 AM FIT SPECTACLES MULTIFOCAL OPTOMETRY ICD-10-CM Z46.0 Encounter for fit/adjst of spectacles and contact lenses SABINA ALBRECHT Encounter Template Text not used by [place] Assessments - Encounter Diagnoses This section includes the primary and secondary diagnoses documented for the Encounter. Date/Time Primary/Secondary Diagnosis Diagnosis Name Provider Source Mar 25, 2024 08:53 AM PRIMARY Encounter for fit/adjst of spectacles and contact lenses TERESA HENSLEY [place] [facility] Social History: Smoking Status (Most current) and [...] 27, 2023 03:00 PM VA-TOBACCO FORMER USER [facility] Tobacco Use History This section includes a history of the smoking, or tobacco-related health factors, that were collected on or before the date of the Encounter. The data comes from the [place] facility where the Encounter took place. Date/Time Smoking Status/Tobacco Use Comment F acility Dec 27, 2023 03:00 PM VA-TOBACCO QUIT 15 YRS OR MORE [place] [facility] [place] [facility] May 25, 2022 01:30 PM VA-TOBACCO NEVER USED [place] [facility] [facility] May 19, 2021 02:00 PM VA-TOBACCO FORMER USER [place] [facility] [place] [facility] May 19, 2021 02:00 PM VA-TOBACCO QUIT 15 YRS OR MORE [place] [facility] [facility] Mar 24, 2020 08:36 AM VA-TOBACCO FORMER USER [place] [facility] [place] [facility] Mar 24, 2020 08:36 AM VA-TOBACCO QUIT 15 YRS OR MORE [place] [facility] [place] [facility] Sep 17, 2017 02:25 PM QUIT TOBACCO USE > 7 YEARS AGO [place] [facility] [facility] Encounter Notes: All associated encounter notes This section contains the clinical notes associated to the Encounter. Date/Time Encounter Note(s) Provider Source Mar 25, 2024 08:53 AM OPTOMETRY NOTE: LOCAL TITLE: OPTOMETRY NOTE STANDARD TITLE: OPTOMETRY NOTE DATE OF NOTE: MAR 25, 2024@08:53 ENTRY DATE: MAR 25, 2024@08:53:24 AUTHOR: BEAR PIMENTEL EXP COSIGNER: URGENCY: STATUS: COMPLETED OPTOMETRY NOTE Has ADDENDA The quote provided below is for informational purposes only. Please verify prior to the creation of a purchase order. CIARA BELLO [id number] RX INFORMATION OD +2.50 -2.00 X85 Add:+2.50 Pzm:0.00 Dir: Prz2:0.00 Dir2: OS +2.75 -2.25 X85 Add:+2.50 Pzm:0.00 Dir: Prz2:0.00 Dir2: FITTING INFORMATION FPD: NPD: [place]:R:33.5 L:34.0 SEG HT:R:25 L:25 Tint:None Shade:None VA Billable Items FRAME: [place] [phone] Right Lens: POLY VA PROGRESSIVE 1.586 POLY Left Lens: POLY VA PROGRESSIVE 1.586 POLY KLEAR ANTI-REFLECTIVE COATING CLIN items [employer] - AR Coating 0004 - Progressive - Glass Plastic Poly /chayo PIMENTEL DIRECTOR OF MEDICARE Signed: 03/25/2024 08:53 Receipt Acknowledged By: 03/25/2024 14:23 /chayo HENSLEY OPTOMETRY TECH 03/25/2024 ADDENDUM STATUS: COMPLETED PDS Manager Therapy fit patient with 1 pair(s) of PAL eyeglasses on 03/24/2024. OPT HT entered consult(s) as requested for provider signature. /chayo HENSLEY OPTOMETRY TECH Signed: 03/25/2024 14:25 BEAR PIMENTEL [facility]
--- OUTSIDE RECORDS SUMMARY | 2024-04-23 19:02 | XMS_ITS | Clinical Summary ---
Author Organization [facility] Address [address] [place] [address] Care Team Providers Care Banquet Steward Name Role Phone Aaliyah Carrillo MD Primary Care Provider [phone] Allergies No known active allergies Medications Medication Sig Dispensed Refills Start Date End Date Status levothyroxine (SYNTHROID, LEVOTHROID) 200 MCG tablet Take 1 tablet (200 mcg total) by mouth every evening. 05/21/2022 Active albuterol (PROVENTIL HFA; VENTOLIN HFA) 108 (90 Base) MCG/ACT inhaler Inhale 2 puffs 4 times daily (every 6 hours) as needed. 12/25/2022 Active atorvastatin (LIPITOR) 20 MG tablet Take 1 tablet (20 mg total) by mouth every evening. 10/26/2022 Active gabapentin (NEURONTIN) 300 MG capsule Take 1 capsule (300 mg total) by mouth 3 times daily (every 8 hours) as needed. 09/24/2022 Active umeclidinium-vilantero l (ANORO ELLIPTA) 62.5-25 MCG/ACT inhaler Inhale 1 puff every morning. 05/25/2022 Active HYDROmorphone (DILAUDID) 2 MG tabletIndications:Neur ogenic claudication due to lumbar spinal stenosis Take 1 tablet (2 mg total) by mouth Every 4 (four) to 6 (six) hours as needed for severe pain. Max Daily Amount: 12 mg 40 tablet 06/13/2023 Active cyclobenzaprine (FLEXERIL) 5 MG tabletIndications:Neur ogenic claudication due to lumbar spinal stenosis Take 1 tablet (5 mg total) by mouth 3 (three) times a day as needed for muscle spasms. 40 tablet 06/13/2023 Active senna-docusate (SENNA-S) 8.6-50 MGIndications:Neurogen ic claudication due to lumbar spinal stenosis Take 2 tablets by mouth nightly. 60 tablet 06/13/2023 Active acetaminophen (TYLENOL) 325 MG tabletIndications:Neur ogenic claudication due to lumbar spinal stenosis Take 3 tablets (975 mg total) by mouth every 8 (eight) hours around the clock. 90 tablet 06/13/2023 Active Active Problems Problem Noted Date Diagnosed Date Disease of spinal cord 06/12/2023 Neurogenic claudication due to lumbar spinal rosa nosis 06/12/2023 Family History Medical History Relation Name Comments Prostate cancer Father Heart disease Mother Relation Name Status Comments Father Mother Social History Tobacco Use Types Packs/Day Years Used Date Smoking Tobacco: Former Cigarettes 0.5 3 1 8 1970 Smokeless Tobacco: Never Tobacco Cessation:Counseling Given: Not Answered Alcohol Use Standard Drinks/Week Comments Not Currently 0 (1 standard drink = 0.6 oz pur e alcohol) [facility] Utilities Answer Date Recorded In the past 12 months has e [employer], gas, oil, or water [employer] threatened to shut off services in your home? No 06/12/2023 AUDIT-C Answer Date Recorded Q1: How often do you have a drink containing alcohol? Never 06/05/2023 Q2: How many drinks containi ng alcohol do you have on a typical day when you are drinking? Patient does not drink Q3: How often do you have si x or more drinks on one occasion? Never 06/05/2023 Overall Financial Resource Strain (CARDIA) Answe r Date Recorded How hard is it for you to pa y for the very basics like food, housing, medical care, and heating? Not hard at all 06/12/2023 Hunger Vital Sign Answer Date Recorded Within the past 12 months, y ou worried that your food would run out before you got the money to buy more. Never true 06/12/19 24 Within the past 12 months, t he food you bought just didn't last and you didn't have money to get more. Never true 06/12/2023 PRAPARE - Transportation Answer Date Re corded In the past 12 months, has l ack of transportation kept you from medical appointments or from getting medications? No 05/20 In the past 12 months, has l ack of transportation kept you from meetings, work, or from getting things needed for daily living? No 06/12/2023 Housing Stability Vital Sign Answer Gurvinder e Recorded In the last 12 months, was t here a time when you were not able to pay the mortgage or rent on time? No 06/12/2023 In the last 12 months, how many places have you lived? 1 06/12/2023 In the last 12 months, was t here a time when you did not have a steady place to sleep or slept in a chcf (including now)? No 06/12/2023 Sex and Gender Information Value Date Recorded Sex Assigned at Male 04/14/2023 12:07 AM EST Gender Identity Male 04/14/2023 12:07 AM EST Sexual Orientation Heterosexual (straight) 04/14 12:07 AM EST Last Filed Vital Signs Vital Sign Reading Time Taken Comments Blood Pressure 138/76 08/09/2023 11:31 AM EDT Pulse 61 08/09/2023 11:31 AM EDT Temperature 36.3 ??C (97.4 ??F) 06/13/2023 10:00 AM E DT Respiratory Rate 18 07/01/2023 1:42 PM EDT Oxygen Saturation 98% 08/09/2023 11:31 AM EDT Inhaled Oxygen Concentration - - Weight 102 kg (225 lb) 08/09/2023 11:31 AM EDT Height 190.5 cm (6' 3 ) 08/09/2023 11:31 AM EDT Body Mass Index 28.12 08/09/2023 11:31 AM EDT Plan of Treatment Health Maintenance Due Date Last Done Comments Hepatitis C Virus Screening 1945 DTaP/Tdap/Td Vaccines (1 - Tdap) 1966 Pneumococcal Vaccines 50+ (1 of 1 - PCV) 1997 Zoster (Shingles) Vaccine (1 of 2) 1997 RSV Vaccine 60 years and older and Patients (1 - 1-dose 75+ series) 2022 Influenza Vaccine 09/19/2023 12/28/2016, 12/11/2013 COVID-19 Vaccine ( - season) 2023 05/11/2020, 04/13/2020 Chronic Controlled Substance User PDMP Review Discontinued 04/16/2023 Hepatitis B Vaccines Aged Out No long er eligible based on patient's age to complete this topic Advance Directives * Full Code (Latest Code Status on File) Date Activated Date Inactivated Comments 06/12/2023 11:05 AM Question Answer Comments Decision Thoroughly Discussed with: Patient * Full Code Date Activated Date Inactivated Comments 06/12/2023 5:45 AM 06/12/2023 11:05 AM Care Teams Banquet Steward Relationship Specialty Start Date End Date Aaliyah Carrillo MD [address] [place] [phone] PCP - General Internal Medicine 06/12/23 Aaliyah Carrillo [address] [facility], [address], [place] [address] Primary Care Provider Internal Medicine 04/15/23 Benji Hardwick [address] [place] [address]?? [place] [address] Physician Pulmonary Medicine 04/15/23
--- OUTSIDE RECORDS SUMMARY | 2024-04-23 19:02 | XMS_ITS | Clinical Summary ---
Author Organization [employer] Address [address] [facility] 7[address] [place] [address] Care Team Providers Care Critical Care Educator Name Role Phone Unavailable Primary Care Provider Unavailabl e Social History Tobacco Use Types Packs/Day Years Used Date Smoking Tobacco: Never Assessed Sex and Gender Information Value Date Recorded Sex Assigned at Male 12/18/2021 10:23 AM EDT Legal Sex Male 10:23 AM EDT Gender Identity Not on file Sexual Orientation Not on file Plan of Treatment Health Maintenance Due Date Last Done Comments Depression Screening 1945 Lipid Panel 1945 Alcohol/Substance Use Screening 1959 Tobacco Screening 1959 DTaP/Tdap/Td Vaccines (1 - Tdap) 1966 Pneumococcal Vaccine: 50+ Ye ars (1 of 1 - PCV) 1997 Zoster Vaccines (1 of 2) 1997 RSV Patients and Pa tients Aged 60 years or older (1 - 1-dose 75+ series) 2022 COVID-19 Vaccine ( - 2023-2 5 season) 2023 Influenza Vaccine (#1) 2023 HIB Vaccines Aged Out No longer eligi ble based on patient's age to complete this topic HPV Vaccines Aged Out No longer eligi ble based on patient's age to complete this topic Hepatitis A Vaccines Aged Out No long er eligible based on patient's age to complete this topic Hepatitis B Vaccines Aged Out No long er eligible based on patient's age to complete this topic IPV Vaccines Aged Out No longer eligi ble based on patient's age to complete this topic Meningococcal Vaccine Aged Out No wallace ruth eligible based on patient's age to complete this topic RSV under 20 months Aged Out No longe r eligible based on patient's age to complete this topic Rotavirus Vaccines Aged Out No longer eligible based on patient's age to complete this topic
--- OUTSIDE RECORDS SUMMARY | 2024-04-23 19:02 | XMS_ITS | Clinical Summary ---
Author Organization [facility] Address [address] [place], [place] [id number] Care Team Providers Care Manager Six Sigma Name Role Phone Aaliyah Carrillo MD Primary Care Provider [phone] Allergies No known active allergies Medications Medication Sig Dispensed Refills Start Date End Date Status Cholecalciferol (VITAMIN D) 50 MCG (2000 UT) tablet Take 2,000 Units by mouth. 0 02/06/2018 Active finasteride (PROSCAR) 5 MG tablet 0 06/22/2019 Active levothyroxine (SYNTHROID, LEVOXYL) tablet 200 mcg Take 200 mcg by mouth. 0 10/09/2018 Active tamsulosin (FLOMAX) 0.4 MG CAPS Take 0.4 mg by mouth. 0 06/22/2019 Active oxyCODONE (ROXICODONE) 5 MG immediate release tablet Take 1 to 2 tabs every 4 hours as needed for pain 50 tablet 0 09/18/2019 Active finasteride (PROSCAR) 5 MG tablet Take 5 mg by mouth. 0 09/29/2019 Active atorvastatin (LIPITOR) tablet 20 mg 0 08/25/2020 Active Umeclidinium-Vilante rol 62.5-25 MCG/INH AEPB Inhale 1 puff into the lungs. 0 01/11/2021 Active albuterol 108 (90 Base) MCG/ACT inhaler INHALE 1 PUFF BY MOUTH EVERY 6 HOURS NEEDED 0 07/14/2021 Active bisacodyl 5 MG EC tablet TAKE 4 TABLETS BY MOUTH WITH 8 OUNCES OF WATER ONCE DAY BEFORE PROCEDURE 0 06/01/2021 Active Active Problems Problem Noted Date Diagnosed Date Arthritis of knee, left 07/18/2021 Arthritis of knee, left 10/14/2020 Arthritis of knee, left 07/12/2020 Lateral epicondylitis of left elbow 08/27/2019 Arthritis of left acromioclavicular joint 2019 Non-traumatic rotator cuff tear, left 08/27/2019 Family History Medical History Relation Name Comments Cancer Father Relation Name Status Comments Father Social History Tobacco Use Types Packs/Day Years Used Date Smoking Tobacco: Never Assessed Sex and Gender Information Value Date Recorded Sex Assigned at Not on file Gender Identity Not on file Sexual Orientation Not on file Job Start Date Occupation Industry Not on file Not on file Not on file Last Filed Vital Signs Vital Sign Reading Time Taken Comments Blood Pressure - - Pulse - - Temperature - - Respiratory Rate - - Oxygen Saturation - - Inhaled Oxygen Concentration - - Weight 102.1 kg (225 lb) 03/15/2021 8:58 AM EST Height 190.5 cm (6' 3 ) 03/15/2021 8:58 AM EST Body Mass Index 28.12 03/15/2021 8:58 AM EST Plan of Treatment Health Maintenance Due Date Last Done Comments Hepatitis C Screening 1945 COVID-19 Vaccine (#1) 1947 Depression Screening 1959 Preventative Health Evaluation 1965 DTap / Tdap / Td (1 - Tdap) 1966 Fall Risk Assessment 01/02/2012 RSV Adult > 60+ Yrs or (1 - 1-dose 75+ series) 2022 Influenza Vaccine (#1) 2023 7, 12/11/2013 Shingrix-Zoster Vaccine Completed 07/18/19, 03/19/2018 Pneumococcal Vaccine Completed 01/11/2021, 02/06/2018, 12/16/2015 Hepatitis B Vaccines Aged Out No long er eligible based on patient's age to complete this topic RSV Ped < 20 months Aged Out No longe r eligible based on patient's age to complete this topic Care Teams Manager Six Sigma Relationship Specialty Start Date End Date Aaliyah Carrillo MD PCP - General Internal Medicine 08/24/19
--- OUTSIDE RECORDS SUMMARY | 2024-04-23 19:02 | XMS_ITS | Encounter Summary ---
Author Organization [facility] Address [address] [place] [address] [address] [place] [address] Care Team Providers Care Pickle Maker Name Role Phone Unavailable Primary Care Provider Unavailabl e Encounter Details Date Type Department Care Team (Latest Contact Info) Description 03/18/2018 Abstract [facility] Dental, Provider, DDS Social History Tobacco Use Types Packs/Day Years Used Date Smoking Tobacco: Never Assessed Sex and Gender Information Value Date Recorded Sex Assigned at Male 12/18/2021 10:23 AM EDT Legal Sex Male 10:23 AM EDT Gender Identity Not on file Sexual Orientation Not on file documented as of this encounter Plan of Treatment Not on file documented as of this encounter Visit Diagnoses Not on filedocumented in this encounter
--- OUTSIDE RECORDS SUMMARY | 2024-04-23 19:02 | XMS_ITS | Encounter Summary ---
Author Name [facility] Organization [facility] Address [address] [place] [address] Care Team Providers Care Manager Quality Improvement Name Role Phone TERRIE DIAZ Primary Care [...] to Policy Cardenas [facility] MEDICARE SUPPLEMEN VEL MEDEX BRONZ E Mar 21, 2011 [id number] [phone] Katlyn BELLO PATIENT [facility] MEDICARE SUPPLEMEN VEL MEDEX BRONZ E Mar 21, 2011 [id number] Katlyn BELLO PATIENT MEDICARE (WNR) MEDICARE (M) PART A Dec 19, 2008 PART A [id number] Katlyn BELLO PATIENT MEDICARE (WN) MEDICARE (M) PART B Dec 19, 2008 PART B [id number] Katlyn BELLO PATIENT Selected Encounter This section includes the information on record at [place] for the Encounter. Date/Time Encounter Type Encounter Description Reason Provider Source Mar 24, 2024 09:30 AM EXTENDED VISUAL FIELD XM OPTOMETRY ICD-10-CM H40.013 Open angle with borderline findings, low risk, bilateral SABINA ALBRECHT IHE Encounter Template Text not used by [place] Assessments - Encounter Diagnoses This section includes the primary and secondary diagnoses documented for the Encounter. Date/Time Primary/Secondary Diagnosis Diagnosis Name Provider Source Mar 24, 2024 12:00 PM PRIMARY Open angle with borderline findings, low risk, bilateral SABINA ALBRECHT [facility] Social History: Smoking Status (Most current) and Tobacco Use (All prior to encounter date) This section includes the most current, and the historical, smoking and tobacco- related health factors from the [place] facility where the Encounter took place. Current Smoking Status This section includes the most current smoking, or tobacco-related health factor, from the [place] facility where the Encounter took place. Date/Time Current Smoking Status Comment Facil ity Dec 27, 2023 03:00 PM [facility] Tobacco Use History This section includes a history of the smoking, or tobacco-related health factors, that were collected on or before the date of the Encounter. The data comes from the [place] facility where the Encounter took place. Date/Time Smoking Status/Tobacco Use Comment F acility Dec 27, 2023 03:00 PM VA-TOBACCO QUIT 15 YRS OR MORE [place] [facility] [place] [facility] May 25, 2022 01:30 PM VA-TOBACCO NEVER USED [place] [facility] [place] [facility] May 19, 2021 02:00 PM VA-TOBACCO FORMER USER [place] [facility] [place] [facility] May 19, 2021 02:00 PM VA-TOBACCO QUIT 15 YRS OR MORE [place] [facility] [place] [facility] Mar 24, 2020 08:36 AM VA-TOBACCO FORMER USER [place] [facility] [place] [facility] Mar 24, 2020 08:36 AM VA-TOBACCO QUIT 15 YRS OR MORE [place] [facility] [place] [facility] Sep 17, 2017 02:25 PM QUIT TOBACCO USE > 7 YEARS AGO [place] [facility] [place] [facility] Encounter Notes: All associated encounter notes This section contains the clinical notes associated to the Encounter. Date/Time Encounter Note(s) Provider Source Mar 24, 2024 11:59 AM OPTOMETRY NOTE: LOCAL TITLE: OPTOMETRY NOTE(T) STANDARD TITLE: OPTOMETRY NOTE DATE OF NOTE: MAR 24, 2024@11:59 ENTRY DATE: MAR 24, 2024@11:59:52 AUTHOR: SABINA ALBRECHT EXP COSIGNER: URGENCY: STATUS: COMPLETED Results were viewed and clinical findings were reviewed with student engineer intern and patient and results are in this note. Assessment and plan are reasonable. Patient remains low risk open-angle glaucoma suspect OU. Follow-up as scheduled for today. /renetta/ SABINA ALBRECHT OD STAFF AGGREGATE CONVEYOR OPERATOR Signed: 03/24/2024 12:00 [facility]T [facility] [place] [facility] Mar 24, 2024 10:57 AM OPTOMETRY CONSULT: LOCAL TITLE: CONSULT REPORT/OPTOMETRY VISUAL FIELD STANDARD TITLE: OPTOMETRY CONSULT DATE OF NOTE: MAR 24, 2024@10:57 ENTRY DATE: MAR 24, 2024@10:57:58 AUTHOR: SABINA BANKS EXP COSIGNER: SABINA ALBRECHT URGENCY: STATUS: COMPLETED Visual field Report: HVF 24-2 reviewed for: Open angle with borderline findings, low risk, bilateral Interpretation: OD: low reliability with 0/11 fixation losses, 0% false positives, and 12% False negatives. GHT outside normal limits. Superior temporal defect, no glaucomatous defects. OS: low reliability with 0/11 fixation losses, 0% false positives, and 07% False negatives. GHT outside normal limits. Superior nasal defect, no glaucomatous defects. A/P: Open angle with borderline findings, low risk, bilateral - First field today with hihj false positives OU - Clean and Stable OCT RNFL OU - Pt. ed on findings - Monitor in 1 year Results were viewed and clinical findings were reviewed with student engineer intern and patient and results are in this note. Assessment and plan are reasonable. Patient remains low risk open-angle glaucoma suspect OU. Follow-up as scheduled for today. /renetta/ SABINA BANKS OPTOMETRY STUDENT Signed: 03/24/2024 11:54 /chayo ALBRECHT OD STAFF AGGREGATE CONVEYOR OPERATOR Cosigned: 03/24/2024 11:59 [facility]KS [facility]
--- OUTSIDE RECORDS SUMMARY | 2024-04-23 19:02 | XMS_ITS | Encounter Summary ---
Author Name [facility] Organization [facility] [place] Address [address] [place] [address] Care Team Providers Care Handbag Frames Inspector Name Role Phone HOLLAND MELCHOR Primary Care Provider Unavaila ble Insurance Providers: [...] VEL MEDEX BRONZ E Mar 21, 2011 [id number] Katlyn BELLO PATIENT [facility] MEDICARE SUPPLEMEN VEL MEDEX BRONZ E Mar 21, 2011 [id number] Katlyn BELLO PATIENT MEDICARE (WNR) MEDICARE (M) PART A Dec 19, 2008 PART A [id number] Katlyn BELLO PATIENT MEDICARE (WNR) MEDICARE (M) PART B Dec 19, 2008 PART B [id number] [phone] Katlyn BELLO PATIENT Selected Encounter This section includes the information on record at [place] for the Encounter. Date/Time Encounter Type Encounter Description Reason Pro vider Source Mar 24, 2024 09:04 AM Outpatient Encounter PRIMARY CARE/MEDICINE IHE Encounter Template Text not used by [place] Social History: Smoking Status (Most current) and [...] 27, 2023 03:00 PM VA-TOBACCO FORMER USER [place] [facility] [place] [facility] Tobacco Use History This section includes a history of the smoking, or tobacco-related health factors, that were collected on or before the date of the Encounter. The data comes from the [place] facility where the Encounter took place. Date/Time Smoking Status/Tobacco Use Comment F acility Dec 27, 2023 03:00 PM VA-TOBACCO QUIT 15 YRS OR MORE [place] [facility] [place] [facility] May 25, 2022 01:30 PM VA-TOBACCO NEVER USED [place] [facility] [place] [facility] May 19, 2021 02:00 PM VA-TOBACCO FORMER USER [place] [facility] [place] [facility] May 19, 2021 02:00 PM VA-TOBACCO QUIT 15 YRS OR MORE [place] [facility] [place] [facility] Mar 24, 2020 08:36 AM VA-TOBACCO FORMER USER [place] [facility] [place] [facility] Mar 24, 2020 08:36 AM VA-TOBACCO QUIT 15 YRS OR MORE [place] [facility] [place] [facility] Sep 17, 2017 02:25 PM QUIT TOBACCO USE > 7 YEARS AGO [place] [facility] [place] [facility] Encounter Notes: All associated encounter notes This section contains the clinical notes associated to the Encounter. Date/Time Encounter Note(s) Provider Source Mar 24, 2024 09:04 AM ADMINISTRATIVE NOTE: LOCAL TITLE: FAX/MAIL RECEIVED STANDARD TITLE: ADMINISTRATIVE NOTE DATE OF NOTE: MAR 24, 2024@09:04 ENTRY DATE: MAR 24, 2024@09:04:47 AUTHOR: DEBI MURRY EXP COSIGNER: URGENCY: STATUS: COMPLETED FAX/MAIL RECEIVED Has ADDENDA Document Received On: Mar Document Type: Other: PFT RPT Date of Service: Feb Facility and or Provider: BROUGHT IN BY Contact Information: [facility] PFT RPT [phone] PCP of Record: HOLLAND MELCHOR Next visit with PCP: 03/24/2024 09:30 [facility] OPTOMETRY VSL IMG 03/24/2024 10:00 NH[facility] OPTOMETRY 4 12/24/2024 10:30 VAM DERMATOLOGY COMPUTER ENGINEERING PROFESSOR 1 AM 12/25/2024 13:00 CWM/NO/PACT 7 Primary Care May keep copies of this document for up to 14 days and send the original for scanning. /renetta/ DEBI MURRY AMSA Signed: 03/24/2024 09:14 03/24/2024 ADDENDUM STATUS: COMPLETED FVC 3.30 FEV1 1.99 PEFR 2.98 [id number] 0.95 /renetta/ Holland Melchor DNP, [place] ATTENDANT-BC, CNL Primary Care Nurse Practitioner Signed: 03/24/2024 09:28 DEBI MURRY [facility]
--- OUTSIDE RECORDS SUMMARY | 2024-04-23 19:02 | XMS_ITS | Encounter Summary ---
Author Name [facility] [place] Organization [facility] [place] Address [address] [place] [address] Care Team Providers Care Senior It Architect Name Role Phone TERRIE MELCHOR Primary Care Provider Unavaila ble Insurance [...] VEL MEDEX BRONZ E Mar 21, 2011 [id number] Katlyn BELLO PATIENT [facility] MEDICARE SUPPLEMEN VEL MEDEX BRONZ E Mar 21, 2011 [id number] Katlyn BELLO PATIENT MEDICARE (WNR) MEDICARE (M) PART A Dec 19, 2008 PART A [id number] Katlyn BELLO PATIENT MEDICARE (WNR) MEDICARE (M) PART B Dec 19, 2008 PART B [id number] Katlyn BELLO PATIENT Selected Encounter This section includes the information on record at [place] for the Encounter. Date/Time Encounter Type Encounter Description Reason Pro vider Source Apr 02, 2024 01:50 PM Outpatient Encounter ADMIN PAT ACTIVTIES (MASNONCT) IHE Encounter Template Text not used by [place] Social History: Smoking Status (Most current) and Tobacco Use (All prior to encounter date) This section includes the most current, and the historical, smoking and tobacco- related health factors from the [place] facility where the Encounter took place. Current Smoking Status This section includes the most current smoking, or tobacco-related health factor, from the [place] facility where the Encounter took place. Date/Time Current Smoking Status Comment Edwin [email or web address] Dec 27, 2023 03:00 PM VA-TOBACCO QUIT 15 YRS OR MORE [place] [facility] [place] [facility] Tobacco Use History This section includes a history of the smoking, or tobacco-related health factors, that were collected on or before the date of the Encounter. The data comes from the [place] facility where the Encounter took place. Date/Time Smoking Status/Tobacco Use Comment Yuki loaiza Dec 27, 2023 03:00 PM VA-TOBACCO QUIT 15 YRS OR MORE [place] [facility] [place] [facility] May 25, 2022 01:30 PM VA-TOBACCO NEVER USED [place] [facility] [place] [facility] May 19, 2021 02:00 PM VA-TOBACCO FORMER USER [place] [facility] [place] [facility] May 19, 2021 02:00 PM VA-TOBACCO QUIT 15 YRS OR MORE [place] [facility] [place] [facility] Mar 24, 2020 08:36 AM VA-TOBACCO FORMER USER [place] [facility] [place] [facility] Mar 24, 2020 08:36 AM VA-TOBACCO QUIT 15 YRS OR MORE [place] [facility] [place] [facility] Sep 17, 2017 02:25 PM QUIT TOBACCO USE > 7 YEARS AGO [place] [facility] [place] [facility] Encounter Notes: All associated encounter notes This section contains the clinical notes associated to the Encounter. Date/Time Encounter Note(s) Provider Source Apr 02, 2024 01:50 PM ADMINISTRATIVE NOT E: LOCAL TITLE: CCC: SCHEDULING ADMINISTRATION STANDARD TITLE: ADMINISTRATIVE NOTE DATE OF NOTE: APR 02, 2024@13:50:20 ENTRY DATE: APR 02, 2024@13:50:20 AUTHOR: MAUDE LYNCH EXP COSIGNER: URGENCY: STATUS: COMPLETED CCC: SCHEDULING ADMINISTRATION Has ADDENDA Patient Demographics Patient Name: CIARA BELLO Patient Primary Phone: [phone] Patient Primary Address: [address] [place] [phone] Patient : 1945 Patient Age: 79 Caller/Recipient Relation to Patient: Self Caller Name: CIARA BELLO Administrative Administrative Note Reason: Other Administrative Note Comments: [place] called inquiring about an inhaler requested. Said he received a call earlier regarding this but missed it. Would like a call back, please assist. IMPORTANT: This note was created by [facility] Clinical Contact Center staff. Please do not alert the staff member by adding them as a signer for future communications. Alerts are not monitored by this user. /renetta/ MAUDE GEORGE [facility] AMSA Signed: 04/02/2024 13:50 Receipt Acknowledged By: 04/03/2024 09:00 /es/ Sy Tanner, Health Naval Inspector WORK DISTRIBUTOR,PRIMARY CARE 04/02/2024 13:58 /es/ Terrie Melchor DNP, STUDIO CAMERA OPERATOR-BC, CNL Primary Care Nurse Practitioner 04/02/2024 15:21 /renetta/ Joana Henderson MSN RN CNL Primary Care RN 04/02/2024 ADDENDUM STATUS: COMPLETED Talked with [facility]et who is currently out of OLODATEROL/TIOTROPIUM. A 30 day supply was due for mailing on 03/26, per records it was released on 04/01. Rx was then discontinued and rewritten for 90 day supply per community provider. RN unable to track 04/01 mailing. Pharmacy also unable to track. Pharmacy recommends early renewal release as [facility] is currently out. RN able to confirm with [facility] that they have med in stock. Vet will go there tomorrow for refill. /renetta/ Joana Henderson MSN RN CNL Primary Care RN Signed: 04/02/2024 15:20 MAUDE LYNCH [facility]
--- OUTSIDE RECORDS SUMMARY | 2024-04-23 19:02 | XMS_ITS | Encounter Summary ---
Author Name [facility] [place] Organization [facility] [place] Address [address] [place] [address] Care Team Providers Care Inspector Final Assembly Electrical Name Role Phone TERRIE DIAZ Primary Care [...] Cardenas [place] SUPPLEMEN VEL MEDEX BRON E Mar 21, 2011 [id number] [phone] Katlyn BELLO PATIENT [place] SUPPLEMEN VEL MEDEX BRON E Mar 21, 2011 [id number] Katlyn BELLO PATIENT MEDICARE ([facility]) MEDICARE (M) PART A Dec 19, 2008 PART A [id number] Katlyn BELLO PATIENT MEDICARE ([facility]) MEDICARE (M) PART B Dec 19, 2008 PART B [id number] Katlyn BELLO PATIENT Selected Encounter This section includes the information on record at [place] for the Encounter. Date/Time Encounter Type Encounter Description Reason Provider Source Mar 24, 2024 09:45 AM CPTRZD OPH DX IMG PST SGM ON OPTOMETRY ICD-10-CM H40.013 Open angle with borderline findings, low risk, bilateral SABINA ALBRECHT IHEddy Encounter Template Text not used by [place] Assessments - Encounter Diagnoses This section includes the primary and secondary diagnoses documented for the Encounter. Date/Time Primary/Secondary Diagnosis Diagnosis Name Provider Source Mar 24, 2024 12:01 PM PRIMARY Open angle with borderline findings, low risk, bilateral [facility]INA [facility]BRECHT [facility] Social History: Smoking Status (Most current) and Tobacco Use (All prior to encounter date) This section includes the most current, and the historical, smoking and tobacco- related health factors from the [place] facility where the Encounter took place. Current Smoking Status This section includes the most current smoking, or tobacco-related health factor, from the [place] facility where the Encounter took place. Date/Time Current Smoking Status Comment Facil ity Dec 27, 2023 03:00 PM VA-TOBACCO [facility] USER [facility] Tobacco Use History This section includes a history of the smoking, or tobacco-related health factors, that were collected on or before the date of the Encounter. The data comes from the [place] facility where the Encounter took place. Date/Time Smoking Status/Tobacco Use Comment F acility Dec 27, 2023 03:00 PM VA-TOBACCO QUIT 15 YRS OR MORE [place] [facility] [place] [facility] May 25, 2022 01:30 PM VA-TOBACCO NEVER USED [place] [facility] [place] [facility] May 19, 2021 02:00 PM VA-TOBACCO FORMER USER [place] [facility] [place] [facility] May 19, 2021 02:00 PM VA-TOBACCO QUIT 15 YRS OR MORE [place] [facility] [place] [facility] Mar 24, 2020 08:36 AM VA-TOBACCO FORMER USER [place] [facility] [place] [facility] Mar 24, 2020 08:36 AM VA-TOBACCO QUIT 15 YRS OR MORE [place] [facility] [place] [facility] Sep 17, 2017 02:25 PM QUIT TOBACCO USE > 7 YEARS AGO [facility] [place] [facility] Encounter Notes: All associated encounter notes This section contains the clinical notes associated to the Encounter. Date/Time Encounter Note(s) Provider Source Mar 24, 2024 12:00 PM OPTOMETRY NOTE: LOCAL TITLE: OPTOMETRY NOTE(T) STANDARD TITLE: OPTOMETRY NOTE DATE OF NOTE: MAR 24, 2024@12:00 ENTRY DATE: MAR 24, 2024@12:00:56 AUTHOR: SABINA ALBRECHT EXP COSIGNER: URGENCY: STATUS: COMPLETED Results were viewed and clinical findings were reviewed with student regulatory internship and patient and results are in this note. Assessment and plan are reasonable. Patient remains low risk open-angle glaucoma suspect OU. Follow-up as scheduled for today. /renetta/ SABINA ALBRECHT OD STAFF SURVIVAL SPECIALIST Signed: 03/24/2024 12:01 SABINA ALBREHCT [facility] Mar 24, 2024 10:58 AM OPTOMETRY CONSULT: LOCAL TITLE: CONSULT REPORT/OPTOMETRY OCT STANDARD TITLE: OPTOMETRY CONSULT DATE OF NOTE: MAR 24, 2024@10:58 ENTRY DATE: MAR 24, 2024@10:58:25 AUTHOR: SABINA BANKS EXP COSIGNER: SABINA ALBRECHT URGENCY: STATUS: COMPLETED OCT RNFL OCT report: RNFL OCT reviewed for: Open angle with borderline findings, low risk, bilateral OD: average c/d 0.55, vertical c/d 0.53, disc area 2.38 mm^2. Average RNFL thickness 96 microns. No thinning noted all quadrants. OS: average c/d 0.57, vertical c/d 0.52, disc area 2.50 mm^2. Average RNFL thickness 100 microns. No thinning noted all quadrants. A/P: Open angle with borderline findings, low risk, bilateral - First field today with hihj false positives OU - Clean and Stable OCT RNFL OU w/ Robust AVG RNFL OU - Pt. ed on findings - Monitor in 1 year /chayo BANKS OPTOMETRY STUDENT Signed: 03/24/2024 11:56 /chayo ALBRECHT OD STAFF SURVIVAL SPECIALIST Cosigned: 03/24/2024 11:59 SABINA BANKS [facility]
--- OUTSIDE RECORDS SUMMARY | 2024-04-23 19:02 | XMS_ITS ---
Author Name [facility] [place] Address [address] [place] [address] Care Team Providers Care Benefits Specialist Name Role Phone TERRIE DIAZ Primary Care [...] Cardenas's Name Patient's Relationship to Policy Cardenas [facility] MEDICARE SUPPLEMEN VEL MEDEX BRONZ E Mar 21, 2011 [id number] Katlyn BELLO PATIENT [facility] MEDICARE SUPPLEMEN VEL MEDEX BRONZ E Mar 21, 2011 [id number] Katlyn BELLO PATIENT MEDICARE (WN) MEDICARE (M) PART A Dec 19, 2008 PART A [id number] [phone] Katlyn BELLO PATIENT MEDICARE ([facility]) MEDICARE (M) PART B Dec 19, 2008 PART B [id number] Katlyn BELLO PATIENT Selected Encounter This section includes the information on record at [place] for the Encounter. Date/Time Encounter Type Encounter Description Reason Provider Source Mar 24, 2024 10:00 AM COMPRE OPH EXAM EST PT 1/> OPTOMETRY ICD-10-CM H04.123 Dry eye syndrome of bilateral lacrimal glands SABINA ALBRECHT Eddy Encounter Template Text not used by [place] Assessments - Encounter Diagnoses This section includes the primary and secondary diagnoses documented for the Encounter. Date/Time Primary/Secondary Diagnosis Diagnosis Name Provider Source Mar 24, 2024 11:13 AM PRIMARY Dry eye syndrome of bilateral lacrimal glands SABINA ALBRECHT [place] [facility] [facility] Mar 24, 2024 11:13 AM SECONDARY Open angle with borderline findings, low risk, bilateral SABINA ALBRECHT [place] [facility] [place] [facility] Social History: Smoking Status (Most current) and [...] YRS OR MORE [place] [facility] [facility] Tobacco Use History This section includes a history of the smoking, or tobacco-related health factors, that were collected on or before the date of the Encounter. The data comes from the [place] facility where the Encounter took place. Date/Time Smoking Status/Tobacco Use Comment F acility Dec 27, 2023 03:00 PM VA-TOBACCO QUIT 15 YRS OR MORE [place] [facility] [place] [facility] May 25, 2022 01:30 PM VA-TOBACCO NEVER USED [place] [facility] [place] [facility] May 19, 2021 02:00 PM VA-TOBACCO FORMER USER [place] [facility] [place] [facility] May 19, 2021 02:00 PM VA-TOBACCO QUIT 15 YRS OR MORE [place] [facility] [place] [facility] Mar 24, 2020 08:36 AM VA-TOBACCO FORMER USER [place] [facility] [place] [facility] Mar 24, 2020 08:36 AM VA-TOBACCO QUIT 15 YRS OR MORE [place] [facility] [place] [facility] Sep 17, 2017 02:25 PM QUIT TOBACCO USE > 7 YEARS AGO [facility] Encounter Notes: All associated encounter notes This section contains the clinical notes associated to the Encounter. Date/Time Encounter Note(s) Provider Source Mar 24, 2024 10:24 AM OPTOMETRY NOTE: LOCAL TITLE: OPTOMETRY NOTE(T) STANDARD TITLE: OPTOMETRY NOTE DATE OF NOTE: MAR 24, 2024@10:24 ENTRY DATE: MAR 24, 2024@10:24:50 AUTHOR: SABINA ALBRECHT EXP COSIGNER: URGENCY: STATUS: COMPLETED I saw this patient in conjunction with the student and agree to the stated findings and plan after reviewing both history and repeating an elements of physical exam. 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 Hayes 1-1/2 years ago. Otherwise no other acute ocular disease was seen today. Ordered PAL. The patient will return in 12 months or sooner if any problems arise, including repeat glaucoma imaging. /renetta/ SABINA ALBRECHT OD STAFF LICENSE EXAMINER Signed: 03/24/2024 11:13 SABINA ALBRECHT [facility] Mar 24, 2024 07:12 AM OPTOMETRY NOTE: LOCAL TITLE: OPTOMETRY NOTE STANDARD TITLE: OPTOMETRY NOTE DATE OF NOTE: MAR 24, 2024@07:12 ENTRY DATE: MAR 24, 2024@07:12:45 AUTHOR: SABINA BANKS EXP COSIGNER: SABINA ALBRECHT URGENCY: STATUS: COMPLETED Active problems - Computerized Problem List is the source for the followin. AF - Atrial Fibrillation ([facility] [id number]) 2. Exposure to potentially hazardous substance 3. COPD - Chronic Obstructive Pulmonary Disease ([facility] [id number]) 4. Hyperlipidemia 5. Papillary thyroid carcinoma 6. Benign prostatic hyperplasia 7. Impaired fasting glycaemia 8. Vocal cord paralysis 9. Spinal stenosis Active Outpatient Medications (including Supplies): Active Outpatient Medications Status = 1) ALBUTEROL 90MCG (CFC-F) 200D ORAL INHL INHALE 2 PUFFS BY ACTIVE MOUTH EVERY 6 HOURS NEEDED FOR SHORTNESS OF BREATH 2) LUBRICATING (PF) OPH OINT APPLY THIN RIBBON INTO EACH EYE AT ACTIVE BEDTIME Indication: FOR DRY EYE 3) OLODATEROL/TIOTROP 2.5MCG/ACTUAT 60D INH INHALE 2 PUFFS (1 ACTIVE DOSE) BY MOUTH ONCE DAILY Active Non-VA Medications Status = 1) Non-VA ALBUTEROL INHALER INHL,ORAL BY MOUTH ACTIVE 2) Non-VA ATORVASTATIN TAB BY MOUTH ACTIVE 3) Non-VA LEVOTHYROXINE NA (SYNTHROID) 200MCG TAB 0.2MG BY ACTIVE MOUTH EVERY MONTH 4) Non-VA LEVOTHYROXINE NA (SYNTHROID) 200MCG TAB 0.2MG BY ACTIVE MOUTH EVERY MORNING 30 MINUTES BEFORE BREAKFAST 5) Non-VA UMECLIDINIUM/VILANTEROL (ANORO) INHL,ORAL BY MOUTH ACTIVE 6) Non-VA NIHGNSOJOAYG88.5/VILANTEROL 25MCG 30D INH 1 INHALATION ACTIVE BY MOUTH ONCE DAILY Indication: FOR BRONCHOSPASM PREVENTION WITH COPD 9 Total Medications Allergies: Patient has answered NKA All medications including those prescribed by outside VA's, community providers, and all OTC meds were reviewed and reconciled with patient to the best of their abilities. This 79 year old MALE is seen today for HELADIO KIRIT: 03/25/2023 Chief Complaint: Right eye was getting a lot of pain, using a lot of oiuntment on the eyes. Reported the pain went away after 4-5 days. reports the vision was blurry. OHx: 1. Combined Cataracts OU 2. 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 Stable benign choroidal nevus left eye 4. Likely physiological cupping given large disc size with stable and healthy moderate optic nerve cupping 5. Mild EBMD Ocular Medications: Uses Ointment every day before bed Art tears 1x a day before bed (-) Pain: (-) MARIANO: (-) Diplopia: (-) Flashes: (-) Floaters: (-) Amaurosis Fugax/Tia's: (-) Eye Injury: (+) Eye Surgery: blepharoplasty OD, removal of RUL cyst, November [address] Hayes at [place] (-) TBI FOHx: (-) Glaucoma/ARMD/Blindness VITALS (most recent, as listed in the electronic record): B/P: 132/78 (01/10/2024 13:41) Pulse: 55 (01/10/2024 13:41) Temperature: 98.1 F [36.7 C] (12/27/2023 14:56) Weight: 232 lb [105.23 kg] (12/27/2023 14:56) Height: 73 in [185.4 cm] (12/27/2023 14:56) BMI: BMI: 30.7 PERTINENT LABS: HEMOGLOBIN A1C TREND Collection DT Spec HGBA1c 12/27/2023 15:37 BLOOD 5.2 05/25/2022 12:59 BLOOD 5.5 (-) Smoker/Length of Time/PPD: Current Rx with last BCVA: OD: +2.50 -2.00 axis 085 20/20 OS: +2.75 -2.25 axis 085 20/20 Add: +2.50 DVA ( )sc ( )cc - phoropter OD: 20/20 but looking around the blur, Started 20/70- and read down to 20/20 OS: 20/20 Pupils: PERRL (-)APD EOMs: SAFE OU, (-)Pain/Diplopia CVF (facial, peripheral): FTFC OU Subjective Refraction: OD: +2.50 -2.00 axis 085 20/20 OS: +2.75 -2.25 axis 085 20/20 Add: +2.50 All the above performed by student, reviewed by attending Anterior segment: Performed by student, repeated by attending Lids: Dermatochalasis, +1 MGD OU, +1 Blepharitis Conj: white and quiet OU Cornea: OD: Resolving Corneal erosion temp to VA 0.5 mm x 0.5 mm, +2 EBMD Diffuse SPK OS: +1 EBMD, Diffuse SPK AC: D&Q OU Angles: 4x4 OU Iris: flat and clear OU, (-) NVI Lens: 1-2 NSC OU, trace ACC inferior OD Tonometry: Performed by student, reviewed by attending [ ] GAT [ ] iCare OD 12 mmHg OS 11 mmHg Time: LAST IOP OD: 14 OS: 14 Time: 2:08 pm Pachymetry: 2020 OD: 504 OS: 516 Gonioscopy OD: OS: Fundus exam: Dilated: Non dilated: Dilating Drops: 1GTT 1 % Tropicamide OU [...] repeated by attending Vit: clear OU C/D: 0.55 OD, 0.55 OS (-)drance hemes/notching OU Macula: OD: flat and clear OS: 1 DD nevus Temporal (-)SRF/SRH OU PPole: clear A/V: 2/3 Vessels: normal caliber OU Periph: flat and intact (-)holes, tears, detachments 360 OU Assessment/Plan: 1. Epithelial basement membrane dystrophy OU - Pt ed on findings, - + RCE OD, resolving today - Discussed Importance of continual lubrication to reduce reoccureances of the RCE - Continue using lubricating drops 4x day and Ointment QHS - Monitor 2. Dry eyes OU; symptomatic - Pt. ed. on todays findings - Ordering Refresh, Lubricating Ointment and Lid scrubs - Ed. pt. to use BID-QID OU even on days when eyes are not feeling dry - Ed. pt. to use ointment before bedtime,advised patient to put small amount of ointment on clean finger and rollinto lower eyelid - Monitor in 1 year 3. Low risk open-angle glaucoma suspect OU. - Moderate cupping with thinner than average CCT. - No evidence of pigment dispersion or pseudoexfoliation OU. - No known family history of glaucoma. - No change in ONH appearance. - Low index of suspicion at present. - Longstanding stability. - IOP today: 12/11 mmHg - Pachymetry: 504/516 microns - Imaging taken today: OCT RNFl: Normal Avg RNFL OU, w/o thinning OU HVF: (-) Glaucomatous defects OU - Pt ed re today's findings - Pt ed re glaucoma as well as the natural history of this diagnosis including prognosis. - Stress importance of continued follow-up appointments - RTC 1 year for CEE with HVF and OCT RNFL 4. Combined Form Cataracts OU - Pt. ed. on findings - cataracts are not visually significant - surgery is not necessary at this time - Ed. on importance of UV protection and on symptoms of glare - Monitor 5. Hyperopia and presbyopia OU - Pt. ed. on today's findings - Ordering duplicate frames for PAL - Monitor Return to Clinic 1 year for CEE with HVF and OCT RNFL or earlier PRN Education: After discussion and answering all 's questions, [place] demonstrated and verbalized understanding of diagnosis and treatment. Yes [x] No [ ] Patient Education: Glaucoma: Patient was educated regarding glaucoma/glaucoma suspect as well as the natural history of this diagnosis including prognosis. Stress importance of compliance and persistency with glaucoma medication when prescribed, timely follow up as well as the role of ancillary testing. Exclusion criteria for ancillary testing include significantly reduced acuity, mental status changes affecting the patient's ability to attend to the test or other physical limitations that would prohibit the patient's ability to participate in testing. Medication Reconciliation: Outpatient: Has the patient been [...] with a VA or non-VA provider. /renetta/ SABINA BANKS OPTOMETRY STUDENT Signed: 03/24/2024 11:57 /renetta/ SABINA ALBRECHT STAFF LICENSE EXAMINER Cosigned: 03/24/2024 11:59 SABINA BANKS [place] [facility]
--- OUTSIDE RECORDS SUMMARY | 2024-04-23 19:02 | XMS_ITS | Encounter Summary ---
Author Organization Formerly [facility] Address [address] [place] [address] Care Team Providers Care Splitter Head Name Role Phone Pcp, No Primary Care Provider Unavailabl e Unknown Primary Care Provider [phone] Aaliyah Carrillo MD Primary Care Provider [phone] Encounter Details Date Type Department Care Team (Late st Contact Info) Description 12/27/2020 Scanned Document [facility] Pulmonary and Critical Care[address] [phone] Pulmonary, Scan Social History Tobacco Use Types Packs/Day Years Used Date Smoking Tobacco: Never Assessed Sex and Gender Information Value Date Recorded Sex Assigned at Male 04/14/2023 12:07 AM EST Gender Identity Male 04/14/2023 12:07 AM EST Sexual Orientation Heterosexual (straight) 04/14 12:07 AM EST COVID-19 Exposure Response Date Recorded In the last month, have you been in contact with someone who was confirmed or suspected to have Coronavirus / COVID-19? No / Unsure 12/19/2020 11:55 AM EDT documented as of this encounter Plan of Treatment Not on file documented as of this encounter Visit Diagnoses Not on filedocumented in this encounter Care Teams Splitter Head Relationship Specialty Start Date End Date Pcp, No PCP - General General Medicine 12/19/20 04/14/23 Unknown Unknow Provider Address PCP - General 04/16/23 06/11/23 Aaliyah Carrillo MD [address] [place] [address] PCP - General Internal Medicine 06/12/23 Aaliyah Carrillo [address] [place] [address], [facility] [address], [place] [address] Primary Care Provider Internal Medicine 04/15/23 Aaliyah Carrillo [address] [place] [address], [facility] [address], [place] [address] Primary Care Provider Internal Medicine 04/15/23 Benji Hardwick [address] [place] [address]?? [place] [address] Physician Pulmonary Medicine 04/15/23 documented as of this encounter
--- OUTSIDE RECORDS SUMMARY | 2024-04-23 19:02 | XMS_ITS | Continuity of Care Document ---
Author Name [facility] Organization [facility] Care Team Providers Care Shipfitter Helper Name Role Phone [facility] Unavailable Unavailable Problems Combined list of problems from Department of Defense and Veterans Affairs facilities. It does not include entries that were removed or entered in error. Problem Status Onset Date Problem Type Date of Resolution Comments Source AF - Atrial Fibrillation ([facility] [id number]) Active Condition [facility] Benign prostatic hyperplasia Active Condition [facility] COPD - Chronic Obstructive Pulmonary Disease ([facility] [id number]) [place] [facility] [place] [facility] Diagnosis: ICD-10-CM Z46.0 Encounter for fit/adjst of spectacles and contact lenses Active Diagnosis [facility] Diagnosis: ICD-10-CM H04.123 Dry eye syndrome of bilateral lacrimal glands Active Diagnosis [facility] Diagnosis: ICD-10-CM H40.013 Open angle [...] Encounter for other administrative examinations Active Diagnosis [facility] Diagnosis: ICD-10-CM 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 Medication Details Route Status Patient Instructions Prescription Expires Prescription Number Last Dispense Date Ordering Provider Order Date Order Qty Source ALBUTEROL 90MCG/ACTUA T (CFC-F) INHL,ORAL,8 .5GM DOSE COUNTER INHALE 2 PUFFS BY MOUTH EVERY 6 HOURS NEEDED FOR SHORTNES S OF BREATH RESPIR ATORY (INHAL ATION) ACTIVE 02/20/2025 [id number] DAVID MUSA IG P 2024 1 [facility] ALBUTEROL 90MCG/ACTUA T (CFC-F) INHL,ORAL,8 .5GM DOSE COUNTER INHALE 2 PUFFS BY MOUTH EVERY 4 HOURS NEEDED FOR BRONCHOS PASM RESPIR ATORY (INHAL ATION) DISCONT INUED 12/27/2024 [id number] TERRIE DIAZ 2023 1 [facility] ALBUTEROL INHALER INHL,ORAL INHALE BY MOUTH RESPIR ATORY (INHAL ATION) ACTIVE Sebastian MORA 2022 [facility] ATORVASTATI N TAB TAKE BY MOUTH ORAL ACTIVE Sebastian MORA ICHLIDA 2022 [facility] CARBAMIDE PEROXIDE 6.5%/GLYCER IN SOLN,OTIC INSTILL 5 DROPS INTO EACH EAR ONCE 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 (OTIC) 01/26/2024 [id number] 4 [facility] DIAZ [facility] CARBOXYMETH YLCELLULOSE NA 0.5% SOLN,OPH INSTILL 1 DROP INTO EACH EYE FOUR TIMES DAILY NEEDED FOR DRY EYE OPHTHA LMIC SUSPEND ED 03/25/2025 [id number] 5 Chioma ALBRECHT NDREW E 2024 15 [facility] CARBOXYMETH YLCELLULOSE NA 0.5% SOLN,OPH INSTILL 1 DROP INTO EACH EYE FOUR TIMES DAILY NEEDED FOR DRY EYES OPHTHA LMIC 05/16/2023 [id number] Sebastian MORA 2022 45 [facility] LEVOTHYROXI NE NA 200MCG TAB (SYNTHROID) TAKE ONE TABLET BY MOUTH EVERY MONTH ORAL ACTIVE TERRIE DIAZ 2018 [facility] LEVOTHYROXI NE NA 200MCG TAB (SYNTHROID) TAKE ONE TABLET BY MOUTH EVERY MORNING 30 MINUTES BEFORE BREAKFAS T ORAL ACTIVE TERRIE DIAZ 2017 [facility] MINERAL OIL,LIGHT/P ETROLATUM (PF) OINT,OPH APPLY THIN RIBBON INTO EACH EYE AT BEDTIME FOR DRY EYE OPHTHA LMIC 03/25/2024 [id number] 5 Chioma ALBRECHT NDREW E 2023 3 [facility] OLODATEROL 2.5MCG/TIOT ROPIUM 2.5MCG/ACTU AT INHL,ORAL,6 0D,4GM INHALE 2 PUFFS (1 DOSE) BY MOUTH ONCE DAILY RESPIR ATORY (INHAL ATION) ACTIVE 03/26/2025 [id number] 5 DIMPLE,SPECIALIZED DEVELOPER IG P 2024 3 [facility] OLODATEROL 2.5MCG/TIOT ROPIUM 2.5MCG/ACTU AT INHL,ORAL,6 0D,4GM INHALE 2 PUFFS (1 DOSE) BY MOUTH ONCE DAILY RESPIR ATORY (INHAL ATION) DISCONT INUED 02/21/2025 [id number] 5 DIMPLE,SPECIALIZED DEVELOPER IG P 2024 1 [facility] UMECLIDINIU M 62.5MCG/BRIAN ANTEROL 25MCG/ACTUA T INH,ORAL,30 D INHALE 1 INHALATI ON BY MOUTH ONCE DAILY RESPIR ATORY (INHAL ATION) ACTIVE TERRIE DIAZ 2022 [facility] SAROJU M/VILANTERO L (ANORO) INHL,ORAL INHALE BY MOUTH ONCE DAILY RESPIR ATORY (INHAL ATION) ACTIVE Sebastian MORA 2022 [facility] Immunizations Combined list of available immunizations from the Department of Defense and Veterans Affairs facilities. Immunization Series Date Given Administered By Site Reaction Lot Number CVX Code Drug Handhole Machine Operator Status Comments Source COVID-19 (MODERNA), MRNA, LNP-S, PF, 100 MCG/0.5 ML DOSE 2 2020 207 complet ed MOD; [id number]; 1 [facility] [...] Dec 27, 2023 03:31 PM Reporting Lab: [facility] [address] Performing Lab: [facility] [address] [facility] HEMOGLOBI N A1C PANEL HEMOGLOBIN A1C/HEMOGLO BIN.TOTAL [...] Dec 27, 2023 03:31 PM Reporting Lab: [facility] [address] [address] Performing Lab: [facility] [address] [facility] CBC LEUKOCYTES [#/VOLUME] IN BLOOD BY AUTOMATED COUNT 7.94 10*3/u L 4.50 - 11.00 12/26 Specimen Type: BLOOD No comment entered. Ordering Provider: MANOLO DIAZ Report Released Date/Time: Dec 27, 2023 03:31 PM Reporting Lab: [facility] [address] Performing Lab: [facility] [address] [facility] CBC ERYTHROCYTE S [#/VOLUME] IN BLOOD BY AUTOMATED COUNT 4.90 10*6/u L 4.23 - 5.66 12/26 Specimen Type: BLOOD No comment entered. Ordering Provider: MANOLO DIAZ Report Released Date/Time: Dec 27, 2023 03:31 PM Reporting Lab: [facility] [address] [facility] [address] Performing Lab: [facility] [place] [facility] [address] [facility] [address] [facility] CBC HEMOGLOBIN [MASS/VOLUM E] IN BLOOD 14.7 g/dL 12.8 - 17 12/26 Specimen Type: BLOOD No comment entered. Ordering Provider: MANOLO DIAZ Report Released Date/Time: Dec 27, 2023 03:31 PM Reporting Lab: [facility] [facility] [address] [facility] [address] Performing Lab: [facility] [place] [facility] [address] [facility] [address] [facility] [place] [facility] CBC HEMATOCRIT [VOLUME FRACTION] OF BLOOD BY AUTOMATED COUNT 43.5 39.2 - 50.4 12/26 Specimen Type: BLOOD No comment entered. Ordering Provider: MANOLO DIAZ Report Released Date/Time: Dec 27, 2023 03:31 PM Reporting Lab: [facility] [place] [facility] [address] [facility] [address] Performing Lab: [facility] [place] [facility] [address] [facility] [address] [facility] [place] [facility] CBC MCV [ENTITIC VOLUME] BY AUTOMATED COUNT 88.8 fL 82 - 99 12/26 Specimen Type: BLOOD No comment entered. Ordering Provider: MANOLO DIAZ Report Released Date/Time: Dec 27, 2023 03:31 PM Reporting Lab: [facility] [facility] [address] [facility] [address] Performing Lab: [facility] [place] [facility] [address] [facility] [address] [facility] [facility] CBC MCHC [MASS/VOLUM E] BY AUTOMATED COUNT 33.8 g/dL 30.8 - 35.1 12/26 Specimen Type: BLOOD No comment entered. Ordering Provider: MANOLO DIAZ Report Released Date/Time: Dec 27, 2023 03:31 PM Reporting Lab: [facility] [facility] [address] [facility] [address] Performing Lab: [facility] [place] [facility] [address] [facility] [address] [facility] CBC PLATELETS [#/VOLUME] IN BLOOD BY AUTOMATED COUNT 263 10*3/u L 140 - 360 12/26 Specimen Type: BLOOD No comment entered. Ordering Provider: MANOLO DIAZ Report Released Date/Time: Dec 27, 2023 03:31 PM Reporting Lab: [facility] [facility] [address] [facility] [address] Performing Lab: [facility] [place] [facility] [address] [facility] [address] [facility] [facility] CBC ERYTHROCYTE DISTRIBUTIO N WIDTH [RATIO] BY AUTOMATED COUNT 13.2 12.0 - 16.0 12/26 Specimen Type: BLOOD No comment entered. Ordering Provider: MANOLO DIAZ Report Released Date/Time: Dec 27, 2023 03:31 PM Reporting Lab: [facility] [place] [facility] [address] [facility] [address] Performing Lab: [facility] [place] [facility] [address] [facility] [address] [facility] [place] [facility] CBC MCH [ENTITIC MASS] BY AUTOMATED COUNT 30.0 pg 26.2 - 32.6 12/26 Specimen Type: BLOOD No comment entered. Ordering Provider: MANOLO DIAZ Report Released Date/Time: Dec 27, 2023 03:31 PM Reporting Lab: [facility] [place] [facility] [address] [facility] [address] Performing Lab: [facility] [place] [facility] [address] [facility] [address] [facility] LIVER FUNCTION PROTEIN [MASS/VOLUM E] IN SERUM OR PLASMA 6.4 g/dL 6.0 - 8.3 12/26 Specimen Type: SERUM No comment entered. Ordering Provider: MANOLO DIAZ Report Released Date/Time: Dec 27, 2023 03:31 PM Reporting Lab: [facility] [address] [facility] [address] Performing Lab: [facility] [address] [facility] [address] [facility] LIVER FUNCTION ALBUMIN [MASS/VOLUM E] IN SERUM OR PLASMA 3.8 g/dL 3.5 - 5.0 12/26 Specimen Type: SERUM No comment entered. Ordering Provider: MANOLO DIAZ Report Released Date/Time: Dec 27, 2023 03:31 PM Reporting Lab: [facility] [facility] [address] [facility] [address] Performing Lab: [facility] [place] [facility] [address] [facility] [address] [facility] LIVER FUNCTION ALKALINE PHOSPHATASE [ENZYMATIC ACTIVITY/VO LUME] IN SERUM OR PLASMA 56 U/L 40 - 150 12/26 Specimen Type: SERUM No comment entered. Ordering Provider: MANOLO DIAZ Report Released Date/Time: Dec 27, 2023 03:31 PM Reporting Lab: [facility] [address] [facility] [address] Performing Lab: [facility] [address] [facility] [address] [facility] LIVER FUNCTION ASPARTATE AMINOTRANSF ERASE [ENZYMATIC ACTIVITY/VO LUME] IN SERUM OR PLASMA 18 U/L 5 - 34 12/26 Specimen Type: SERUM No comment entered. Ordering Provider: MANOLO DIAZ Report Released Date/Time: Dec 27, 2023 03:31 PM Reporting Lab: [facility] [address] [facility] [address] Performing Lab: [facility] [address] [facility] [address] [facility] LIVER FUNCTION ALANINE AMINOTRANSF ERASE [ENZYMATIC ACTIVITY/VO LUME] IN SERUM OR PLASMA 15 U/L 12/26 Specimen Type: SERUM No comment entered. Ordering Provider: MANOLO DIAZ Report Released Date/Time: Dec 27, 2023 03:31 PM Reporting Lab: [facility] [place] [facility] [address] [facility] [address] Performing Lab: [facility] [address] [facility]ITALUSE [facility] LIVER FUNCTION BILIRUBIN.T OTAL [MASS/VOLUM E] IN SERUM OR PLASMA 0.6 mg/dL 0.2 - 1.2 12/26 Specimen Type: SERUM No comment entered. Ordering Provider: MANOLO DIAZ Report Released Date/Time: Dec 27, 2023 03:31 PM Reporting Lab: [facility] [address] Performing Lab: [facility] [address] [facility]RL TRN [facility]USE [facility] BASIC METABOLIC PANEL (non-fast ing) UREA NITROGEN [MASS/VOLUM E] IN SERUM OR PLASMA 17 mg/dL 7 - 25 12/26 Specimen Type: SERUM No comment entered. Ordering Provider: MANOLO DIAZ Report Released Date/Time: Dec 27, 2023 03:31 PM Reporting Lab: [facility] [address] Performing Lab: [facility]ITALUSETS [address] [address] [facility]ITALUSE [facility] BASIC METABOLIC PANEL (non-fast ing) GLUCOSE [MASS/VOLUM E] IN SERUM OR PLASMA 89 mg/dL 65 - 100 12/26 Specimen Type: SERUM No comment entered. Ordering Provider: MANOLO DIAZ Report Released Date/Time: Dec 27, 2023 03:31 PM Reporting Lab: [facility] [address] Performing Lab: [facility] [address] [facility] BASIC METABOLIC PANEL (non-fast ing) SODIUM [MOLES/VOLU ME] IN SERUM OR PLASMA 140 mmol/L 135 - 145 12/26 Specimen Type: SERUM No comment entered. Ordering Provider: MANOLO DIAZ Report Released Date/Time: Dec 27, 2023 03:31 PM Reporting Lab: [facility]ITALUSEN[facility] [address] [facility] [address] Performing Lab: [facility]PITALRFAYETTE MEDICAL CENTERTRN [facility]ITALUSEN[facility] [address] [facility] [address] [facility]N [facility]USE [facility] BASIC METABOLIC PANEL (non-fast ing) POTASSIUM [MOLES/VOLU ME] IN SERUM OR PLASMA 4.0 mmol/L 3.5 - 5.0 12/26 Specimen Type: SERUM No comment entered. Ordering Provider: MANOLO DIAZ Report Released Date/Time: Dec 27, 2023 03:31 PM Reporting Lab: [facility]ITALUSEN[facility] [address] [facility] [address] Performing Lab: [facility]ITALUSEN[facility] [address] [facility] [address] [facility]N [facility] BASIC METABOLIC PANEL (non-fast ing) CHLORIDE [MOLES/VOLU ME] IN SERUM OR PLASMA 107 mmol/L 100 - 110 12/26 Specimen Type: SERUM No comment entered. Ordering Provider: MANOLO DIAZ Report Released Date/Time: Dec 27, 2023 03:31 PM Reporting Lab: [facility]ITALUSEN[facility] [address] [facility] [address] Performing Lab: [facility]ITALUSEN[facility] [address] [facility] [address] [facility]N [facility] BASIC METABOLIC PANEL (non-fast ing) CARBON DIOXIDE, TOTAL [MOLES/VOLU ME] IN SERUM OR PLASMA 23 meq/L 20 - 30 12/26 Specimen Type: SERUM No comment entered. Ordering Provider: MANOLO DIAZ Report Released Date/Time: Dec 27, 2023 03:31 PM Reporting Lab: [facility] [place] [facility] [address] [facility] [address] Performing Lab: [facility] [place] [facility] [address] [facility] [address] [facility] W[facility]N [facility] BASIC METABOLIC PANEL (non-fast ing) CREATININE [MASS/VOLUM E] IN SERUM OR PLASMA 0.96 mg/dL 0.50 - 1.40 12/26 Specimen Type: SERUM No comment entered. Ordering Provider: MANOLO DIAZ Report Released Date/Time: Dec 27, 2023 03:31 PM Reporting Lab: [facility] [place] [facility] [address] [facility] [address] Performing Lab: [facility]ITALRL W[facility]N [facility]ITALUSETS [address] [address] [facility]PITALRFAYETTE MEDICAL CENTERTRN [facility]ITALUSE [facility] BASIC METABOLIC PANEL (non-fast ing) GLOMERULAR FILTRATION RATE/1.73 SQ M.PREDICTED [VOLUME RATE/AREA] IN SERUM, PLASMA OR BLOOD BY CREATININE- BASED FORMULA (CKD-EPI 2020) 81 mL/min 60 12/26 Specimen Type: SERUM No comment entered. Ordering Provider: MANOLO DIAZ Report Released Date/Time: Dec 27, 2023 03:31 PM Reporting Lab: [facility] [place] [address] [address] Performing Lab: [facility]ITALRL W[facility]N [facility]ITALUSETS [address] [address] [facility]ITALRL TRN [facility]ITALUSE [facility] LIPID PANEL, NON FASTING CHOLESTEROL [MASS/VOLUM E] IN SERUM OR PLASMA 153 mg/dL 12/26 Specimen Type: SERUM No comment entered. Ordering Provider: MANOLO DIAZ Report Released Date/Time: Dec 27, 2023 03:31 PM Reporting Lab: [facility] [place] [facility] [address] [facility] [address] Performing Lab: [facility]ITALRL [facility]N [facility]ITALUSE[address] [address] [facility]ITALRL TRN [facility]ITALUSE [facility] LIPID PANEL, NON FASTING TRIGLYCERID E [MASS/VOLUM E] IN SERUM OR PLASMA 105 mg/dL 0 - 150 12/26 Specimen Type: SERUM No comment entered. Ordering Provider: MANOLO DIAZ Report Released Date/Time: Dec 27, 2023 03:31 PM Reporting Lab: [facility]ITALN [facility]USE[address] [address] Performing Lab: [facility]OSPITALN [address] [address] [facility]ITALN [facility]ITALUSE [facility] LIPID PANEL, NON FASTING CHOLESTEROL IN LDL [MASS/VOLUM E] IN SERUM OR PLASMA BY CALCULATION 86 mg/dL 0 - 129 12/26 Specimen Type: SERUM No comment entered. Ordering Provider: MANOLO DIAZ Report Released Date/Time: Dec 27, 2023 03:31 PM Reporting Lab: [address] [address] Performing Lab: [facility]OSPITALN [address] [address] [facility] LIPID PANEL, NON FASTING CHOLESTEROL .TOTAL/CHOL ESTEROL IN HDL [MASS RATIO] IN SERUM OR PLASMA 3.3 12/26 Specimen Type: SERUM No comment entered. Ordering Provider: MANOLO DIAZ Report Released Date/Time: Dec 27, 2023 03:31 PM Reporting Lab: [facility]ITALN [facility]USE[address] [address] Performing Lab: [facility]ITALUSE[address] [address] [facility]N [facility]ITALUSE [facility] LIPID PANEL, NON FASTING CHOLESTEROL IN HDL [MASS/VOLUM E] IN SERUM OR PLASMA 46 mg/dL 40 - 60 12/26 Specimen Type: SERUM No comment entered. Ordering Provider: MANOLO DIAZ Report Released Date/Time: Dec 27, 2023 03:31 PM Reporting Lab: [facility]ITALN [facility]ITALUSE[address] [address] Performing Lab: [facility]TER[facility]EN [place]CHUSE[address] [place] [address] [facility] THYROID T4 FREE(FT4) THYROXINE (T4) FREE [MASS/VOLUM E] IN SERUM OR PLASMA 1.43 ng/dL 0.6 - 1.6 05/25 Specimen Type: SERUM No comment entered. Ordering Provider: MANOLO DIAZ Report Released Date/Time: May 14, 2022 02:20 PM Reporting Lab: [facility] [address] [facility] [address] Performing Lab: [facility]ITALN [facility] [address] [facility] [address] [facility] BASIC METABOLIC PANEL (non-fast ing) UREA NITROGEN [MASS/VOLUM E] IN SERUM OR PLASMA 12 mg/dL 7 - 25 05/25 Specimen Type: SERUM No comment entered. Ordering Provider: MANOLO DIAZ Report Released Date/Time: May 14, 2022 02:20 PM Reporting Lab: [facility] [address] [facility] [address] Performing Lab: [facility] [address] [facility] [address] [facility] BASIC METABOLIC PANEL (non-fast ing) GLUCOSE [MASS/VOLUM E] IN SERUM OR PLASMA 99 mg/dL 65 - 100 05/25 Specimen Type: SERUM No comment entered. Ordering Provider: MANOLO DIAZ Report Released Date/Time: May 14, 2022 02:20 PM Reporting Lab: [facility]ITALN [facility] [address] [facility] [address] Performing Lab: [facility] [address] [facility] [address] [facility] BASIC METABOLIC PANEL (non-fast ing) SODIUM [MOLES/VOLU ME] IN SERUM OR PLASMA 140 mmol/L 135 - 145 05/25 Specimen Type: SERUM No comment entered. Ordering Provider: MANOLO DIAZ Report Released Date/Time: May 14, 2022 02:20 PM Reporting Lab: [facility] [place] [facility] [address] [facility] [address] Performing Lab: [facility]N [facility]ITALUSETS [facility] [address] [facility] [address] [facility] BASIC METABOLIC PANEL (non-fast ing) POTASSIUM [MOLES/VOLU ME] IN SERUM OR PLASMA 4.2 mmol/L 3.5 - 5.0 05/25 Specimen Type: SERUM No comment entered. Ordering Provider: MANOLO DIAZ Report Released Date/Time: May 14, 2022 02:20 PM Reporting Lab: [facility]RL W[facility]N [facility]PITALUSETS [facility] [address] [facility] [address] Performing Lab: ID CNTRL [facility] [address] [facility] [address] [facility] BASIC METABOLIC PANEL (non-fast ing) CHLORIDE [MOLES/VOLU ME] IN SERUM OR PLASMA 106 mmol/L 100 - 110 05/25 Specimen Type: SERUM No comment entered. Ordering Provider: MANOLO DIAZ Report Released Date/Time: May 14, 2022 02:20 PM Reporting Lab: [facility] [place] [facility] [address] [facility] [address] Performing Lab: ID CNTRL [facility] [address] [facility] [address] [facility] BASIC METABOLIC PANEL (non-fast ing) CARBON DIOXIDE, TOTAL [MOLES/VOLU ME] IN SERUM OR PLASMA 23 meq/L 20 - 30 05/25 Specimen Type: SERUM No comment entered. Ordering Provider: MANOLO DIAZ Report Released Date/Time: May 14, 2022 02:20 PM Reporting Lab: [facility] [place] [facility] [address] [facility] [address] Performing Lab: ID CNTRL [facility] [address] [facility] [address] [facility] [place] [facility] BASIC METABOLIC PANEL (non-fast ing) CREATININE [MASS/VOLUM E] IN SERUM OR PLASMA 1.03 mg/dL 0.50 - 1.40 05/25 Specimen Type: SERUM No comment entered. Ordering Provider: MANOLO DIAZ Report Released Date/Time: May 14, 2022 02:20 PM Reporting Lab: [facility]USE[address] [address] Performing Lab: [facility] [address] [facility] BASIC METABOLIC PANEL (non-fast ing) GLOMERULAR FILTRATION RATE/1.73 SQ M.PREDICTED [VOLUME RATE/AREA] IN SERUM, PLASMA OR BLOOD BY CREATININE- BASED FORMULA (CKD-EPI) 75 mL/min 60 05/25 Specimen Type: SERUM No comment entered. Ordering Provider: MANOLO DIAZ Report Released Date/Time: May 14, 2022 02:20 PM Reporting Lab: [facility]ITALUSE[address] [address] Performing Lab: [facility] [address]USE[address] [address] [facility] LIPID PANEL FASTING CHOLESTEROL [MASS/VOLUM E] IN SERUM OR PLASMA 128 mg/dL 7 - 199 05/25 Specimen Type: SERUM No comment entered. Ordering Provider: MANOLO DIAZ Report Released Date/Time: May 14, 2022 02:20 PM Reporting Lab: [facility] [address] [address] Performing Lab: [facility] [address] [facility] LIPID PANEL FASTING TRIGLYCERID E [MASS/VOLUM E] IN SERUM OR PLASMA 72 mg/dL 0 - 150 05/25 Specimen Type: SERUM No comment entered. Ordering Provider: MANOLO DIAZ Report Released Date/Time: May 14, 2022 02:20 PM Reporting Lab: [facility] [address] Performing Lab: [facility] [place] [facility] [address] [facility] [address] [facility] LIPID PANEL FASTING CHOLESTEROL IN LDL [MASS/VOLUM E] IN SERUM OR PLASMA BY CALCULATION 71 mg/dL 0 - 129 05/25 Specimen Type: SERUM No comment entered. Ordering Provider: MANOLO DIAZ Report Released Date/Time: May 14, 2022 02:20 PM Reporting Lab: [facility] [place] [facility] [address] [facility] [address] Performing Lab: [facility] [place] [facility] [address] [facility] [address] [facility] LIPID PANEL FASTING CHOLESTEROL .TOTAL/CHOL ESTEROL IN HDL [MASS RATIO] IN SERUM OR PLASMA 3.0 05/25 Specimen Type: SERUM No comment entered. Ordering Provider: MANOLO DIAZ Report Released Date/Time: May 14, 2022 02:20 PM Reporting Lab: [facility] [place] [facility] [address] [facility] [address] Performing Lab: [facility] [place] [facility] [address] [facility] [address] [facility] LIPID PANEL FASTING CHOLESTEROL IN HDL [MASS/VOLUM E] IN SERUM OR PLASMA 43 mg/dL 40 - 60 05/25 Specimen Type: SERUM No comment entered. Ordering Provider: MANOLO DIAZ Report Released Date/Time: May 14, 2022 02:20 PM Reporting Lab: [facility] [place] [facility] [address] [facility] [address] Performing Lab: [facility] [place] [address] [address] [facility] [facility] TSH THYROTROPIN [UNITS/VOLU ME] IN SERUM OR PLASMA < 0.06u[ IU]/mL 0.35 - 5.00 05/25 Specimen Type: SERUM No comment entered. Ordering Provider: MANOLO DIAZ Report Released Date/Time: May 14, 2022 02:20 PM Reporting Lab: [facility] [place] [facility] [address] [facility] [address] Performing Lab: [facility] [place] [address] [facility] [address] [facility] Vital [...] 14:56:45 [facility] BMI 31 kg/m2 12/27/2023 14:56:45 [facility] [place] [...] from Department of Veterans Affairs facilities going backup to the last 18 months, not all VA inpatient encounters are included; 2) Encounters from the Department of Defense facilities going backup to 280 months. Location Location Details Encounter Type Encounter Number Reason For Visit Attending Provider ADM Date DC Date Status Disposition Source [facility] Encounter [id number] 10/24 [facility] Encounter [id number] 10/24 [facility] Encounter [id number] 10/30 [facility] Encounter [id number] 11/19 [facility] Encounter [id number] 12/24 [facility] Encounter [id number] 12/25 [facility] OFFICE O/P EST MOD 30-39 MIN [id number] Diagnos is: ICD-10- CM D48.5 Neoplas m of uncerta in behavio r of skin GABRIELLA ALVARADO 01/01 [facility] Encounter [id number] MARIAMA TEE MD 01/07 [facility] Out[facility] Encounter [id number] Diagnos is: ICD-10- CM Z02.89 Encount er for other adminis trative examina tiASHLEY Chávez 01/24 [facility] Out[facility] Encounter [id number] Diagnos is: ICD-10- CM Z02.89 Encount er for other adminis trative examina tions ASHLEY MUELLER 03/14 [facility] [place] 1 [id number] Diagnos is: ICD-10- CM H40.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 DOMINIC ALBRECHT 03/25 [facility] FIT SPECTACLES MULTIFOCAL [id number] Diagnos is: ICD-10- CM Z46.0 Encount er for fit/adj st of spectac les and contact lenses DOMINIC ALBRECHT 03/26 [facility] Out[facility] Encounter [id number] TAYLOR PORRAS 05/13 [facility] Encounter [id number] 05/14 [facility] Encounter [id number] 05/15 [facility] Encounter [id number] 07/01 [facility] Out[facility] Encounter [id number] Diagnos is: ICD-10- CM Z02.89 Encount er for other adminis trative examina tions ASHLEY MUELLER 07/03 [facility] Out[facility] Encounter [id number] 07/10 [facility] Out[facility] Encounter [id number] 10/27 [facility] Out[facility] Encounter [id number] 11/04 [facility] Out[facility] Encounter [id number] 11/28 [facility] Out[facility] Encounter [id number] 12/22 [facility] Encounter [id number] 12/25 [facility] OFFICE O/P EST MOD 30 MIN [id number] Diagnos is: ICD-10- CM Z86.018 Persona l history of other benign neoplas GABRIELLA Piper 12/25 [facility] OFFICE O/P EST MOD 30 MIN [id number] Diagnos is: ICD-10- CM I48.91 Unspeci fied atrial fibrill ation Terri DIAZ 12/26 [facility] OFF/OP EST MAY X REQ PHY/QHP [id number] 1. Diagnos is: ICD-10- CM H61.23 Impacte d cerumen , bilater al ZANVETTNIRMAL SORENSEN 01/09 [facility] Out[facility] Encounter [id number] 1.01/09 [facility] Out[facility] Encounter [id number] 1.02/19 [facility] Out[facility] Encounter [id number]/[id number] [facility] EXTENDED VISUAL FIELD XM [id number] Diagnos is: ICD-10- CM H40.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 DOMINIC ALBRECHT E 03/24 [facility] CPTRZD OPH DX IMG PST SGM ON 63 [id number] Diagnos is: ICD-10- CM H40.013 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, low risk, quincy al DOMINIC ALBRECHT E 03/24 [facility] COMPRE [place]PH EX[place] EST PT 1/ [id number] Diagnos is: ICD-10- CM 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 Social History Type Response Date Comment [facility] e Tobacco smoking status NHIS VA-TOBACCO FORMER USER 12/27/2023 [facility] [place] [facility] History of tobacco use ID-TOBACCO QUIT 15 YRS OR MORE 12/27/2023 [facility] [facility] History of tobacco use ID-TOBACCO NEVER USED 05/25/2022 [facility] [place] [facility] History of tobacco use ID-TOBACCO QUIT 15 YRS OR MORE 05/19/2021 [facility] [place] [facility] History of tobacco use ID-TOBACCO FORMER USER 03/24/2020 [facility] [facility] History of tobacco use QUIT TOBACCO USE > 7 YEARS AGO 09/17/2017 [facility] [place] [facility]
--- OUTSIDE RECORDS SUMMARY | 2024-04-23 19:02 | XMS_ITS | Encounter Summary ---
Author Organization [facility] Address [address] [place] [address] Care Team Providers Care Saloon Keeper Name Role Phone Pcp, No Primary Care Provider Unavailabl e Unknown Primary Care Provider [phone] Aaliyah Carrillo MD Primary Care Provider [phone] Encounter Details Date Type Department Care Team (Late st Contact Info) Description 12/19/2020 Scanned Document [facility] at [address] [phone] Provider, External, [address] [place] [address] Social History Tobacco Use Types Packs/Day Years [...] on filedocumented in this encounter Care Teams Saloon Keeper Relationship Specialty Start Date End Date Pcp, No PCP - General General Medicine 12/19/20 04/14/23 Unknown Unknow Provider Address PCP - General 04/16/23 06/11/23 Aaliyah Carrillo MD [address] [place] [phone] PCP - General Internal Medicine 06/12/23 Aaliyah Carrillo [address] [place] [address], [address] [address] Primary Care Provider Internal Medicine 04/15/23 Aaliyah Carrillo [address] [place] [address], [address] [address] Primary Care Provider Internal Medicine 04/15/23 Benji Hardwick [address] [place] [address]?? [place] [address] Physician Pulmonary Medicine 04/15/23 documented as of this encounter
== END 2024-04-23 16:39 | disposition home or self-care (01) ==
PROVIDERS: PCP Internal Medicine; Visit Provider Internal Medicine
DX: Z00.00 Encounter for general adult medical examination without abnormal findings (principal)

== ENCOUNTER → 2024-04-23 15:36 | Outpatient (BNVA) | payer MEDICARE, SELFPAY | PROVIDERS: PCP Internal Medicine; Visit Provider Internal Medicine ==

== ENCOUNTER 2024-04-24 10:05 | Outpatient (REF) | payer MEDICARE, SELFPAY ==
--- OUTSIDE RECORDS SUMMARY | 2024-04-24 11:18 | XMS_ITS | Encounter Summary ---
Author Organization [facility] Address [address] [place] [address] Care Team Providers Care Cycle Specialist Name Role Phone Ricky West MD Primary Care Provider Aaliyah Jefferson MD Primary Care Provider Clarice Mac, Pcp Primary Care Provider Manuel shore Encounter Details Date Type Department Care Team Description 01/22/2013 Release of Information Medical Records [address] [place] [address] Abstract, Provider Social History Tobacco Use Types Packs/Day Years Used Date Smoking Tobacco: Former Cigarettes 1 5 Smokeless Tobacco: Never Comments:quit 46 years ago Alcohol Use Standard Drinks/Week Comments No 0 (1 standard drink = 0.6 oz pur e alcohol) Sex Assigned at Date Recorded Not on file documented as of this encounter Plan of Treatment Not on file documented as of this encounter Visit Diagnoses Not on filedocumented in this encounter Care Teams Cycle Specialist Relationship Specialty Start Date End Date Ricky West MD PCP - General Internal Medicine 01/02/13 01/03/15 Aaliyah Smith MD PCP - General Internal Medicine 01/04/15 09/22/20 [facility], Pcp PCP - General Internal Medicine 09/23/20 documented as of this encounter
--- OUTSIDE RECORDS SUMMARY | 2024-04-24 11:18 | XMS_ITS | Encounter Summary ---
Author Organization [facility] Address [address] [place] [address] Care Team Providers Care Bobbin Trucker Name Role Phone Aaliyah Smith MD Primary Care Provider Clarice webster [facility], Pcp Primary Care Provider Manuel shore Encounter Details Date Type Department Care Team Description 01/20/2019 Ophthalmic Surgeon Report Medical Records [address] [place] [address] Tanisha Rajan MD Social History Tobacco Use Types Packs/Day Years [...] on filedocumented in this encounter Care Teams Bobbin Trucker Relationship Specialty Start Date End Date Aaliyah Smith MD PCP - General Internal Medicine 01/04/15 09/22/20 [facility], Pcp PCP - General Internal Medicine 09/23/20 documented as of this encounter
--- OUTSIDE RECORDS SUMMARY | 2024-04-24 11:18 | XMS_ITS | Encounter Summary ---
Author Organization [facility] Address [address] [place] [address] Care Team Providers Care Manager Retail Name Role Phone Aaliyah Smith MD Primary Care Provider Clarice [facility], Pcp Primary Care Provider Manuel shore Reason for Visit * Reason Onset Date Comments refill request 04/22/2018 Encounter Details Date Type Department Care Team Description 04/22/2018 Telephone Medicine/Pediatrics - [address] [phone] Aaliyah Smith MD refill request Social History Tobacco Use Types Packs/Day Years Used Date Smoking Tobacco: Former Cigarettes 1 5 Smokeless Tobacco: Never Comments:quit 46 years ago Alcohol Use Standard Drinks/Week Comments No 0 (1 standard drink = 0.6 oz pur e alcohol) Sex Assigned at Date Recorded Not on file documented as of this encounter Miscellaneous Notes * Telephone Encounter - Lavon Kebede PA-C - 04/22/2018 12:45 PM EST signed * Telephone Encounter - Shayy Bryson M.A. - 04/22/2018 11:08 AM EST Last ov 02/06/18. Per ov note: BPH-On flomax and finasteride. Lab Results Component Value Date PSA 1.2 08/09/2017 PSA 1.2 09/24/2014 PSA 1.2 04/09/2013 * Telephone Encounter - Britt Carrasco - 04/22/2018 10:49 AM EST Patient would like script to be: E-PRESCRIBED/FAXED TO PHARMACY WHEN WAS THE PATIENT'S LAST APPOINTMENT IN ADULT MEDICINE? 02/06/18 WHEN WAS THE LAST TIME THE PATIENT SAW THEIR PCP? Same as above Does patient have an upcoming appointment? no (THE MEDICATION REQUESTED IS ON THE MED LIST ABOVE) All of the medications requested were on the CURRENT MEDS list Did you check the Pharmacy information above?: YES Patient wants: 90 -day supply Is this a mail order prescription request ? YES If the refill is from a FAXED refill request what is the RX # listed on the fax? N/A Patients current insurance carrier is: [place] / [place] / Product Type: MEDICARE [id number] documented in this encounter Plan of Treatment Not on file documented as of this encounter Visit Diagnoses Not on filedocumented in this encounter Care Teams Manager Retail Relationship Specialty Start Date End Date Aaliyah Smith MD PCP - General Internal Medicine 01/04/15 09/22/20 [facility] Pcp PCP - General Internal Medicine 09/23/20 documented as of this encounter
--- OUTSIDE RECORDS SUMMARY | 2024-04-24 11:18 | XMS_ITS | Encounter Summary ---
Author Organization [facility] Address [address] [place] [address] 7 [place] [address] Care Team Providers Care Gift Shop Assistant Name Role Phone Unavailable Primary Care Provider Unavailabl e Encounter Details Date Type Department Care Team (Latest Contact Info) Description 03/18/2018 Abstract [facility] CONVERSIONS Dental, Provider, DDS Social History Tobacco [...]
--- OUTSIDE RECORDS SUMMARY | 2024-04-24 11:18 | XMS_ITS | Encounter Summary ---
Author Organization [facility] Address [address] [place] [address] Care Team Providers Care Recorder Helper Seismograph Name Role Phone Ricky West MD Primary Care Provider Unavail Aaliyah Yanez MD Primary Care Provider Clarice Mac, Pcp Primary Care Provider Manuel shore Encounter Details Date Type Department Care Team Description 11/05/2013 Hospital Medical Records [address] [place] [address] Oniel Javier MD Social History Tobacco Use Types Packs/Day [...] on filedocumented in this encounter Care Teams Recorder Helper Seismograph Relationship Specialty Start Date End Date Ricky West MD PCP - General Internal Medicine 01/02/13 01/03/15 Aaliyah Smith MD PCP - General Internal Medicine 01/04/15 09/22/20 [facility], Pcp PCP - General Internal Medicine 09/23/20 documented as of this encounter
--- OUTSIDE RECORDS SUMMARY | 2024-04-24 11:18 | XMS_ITS | Encounter Summary ---
Author Organization [facility] Address [address] [place] [address] Care Team Providers Care Neck Band Maker Name Role Phone Aaliyah Smith MD Primary Care Provider Clarice webster [facility], Pcp Primary Care Provider Manuel shore Encounter Details Date Type Department Care Team Description 09/13/2015 Wellness Visit Medical Records [address] [place] [address] Aaliyah Smith MD Social History Tobacco Use Types Packs/Day [...] on filedocumented in this encounter Care Teams Neck Band Maker Relationship Specialty Start Date End Date Aaliyah Smith MD PCP - General Internal Medicine 01/04/15 09/22/20 [facility], Pcp PCP - General Internal Medicine 09/23/20 documented as of this encounter
--- OUTSIDE RECORDS SUMMARY | 2024-04-24 11:18 | XMS_ITS | Encounter Summary ---
Author Organization [facility] Address [address] [place] [address] Care Team Providers Care Help Desk Internship Name Role Phone Pcp, No Primary Care Provider Unavailabl e Unknown Primary Care Provider [phone] Aaliyah Carrillo MD Primary Care Provider [phone] Encounter Details Date Type Department Care Team (Late st Contact Info) Description 12/27/2020 Scanned Document [facility] Pulmonary and Critical Care[address] [phone] Pulmonary, Scan Social History Tobacco [...] on filedocumented in this encounter Care Teams Help Desk Internship Relationship Specialty Start Date End Date Pcp, No PCP - General General Medicine 12/19/20 04/14/23 Unknown Unknow Provider Address PCP - General 04/16/23 06/11/23 Aaliyah Carrillo MD [address] [place] [address] PCP - General Internal Medicine 06/12/23 Aaliyah Carrillo [address] [place] [address], [facility] [address], [place] [address] Primary Care Provider Internal Medicine 04/15/23 Aaliyah Carrillo [address] [place] [address], [facility] [address], [place] [address] Primary Care Provider Internal Medicine 04/15/23 Benji Hardwick [address] [place] [address]?? [place] [address] Physician Pulmonary Medicine 04/15/23 documented as of this encounter
--- OUTSIDE RECORDS SUMMARY | 2024-04-24 11:18 | XMS_ITS | Encounter Summary ---
Author Organization [facility] Address [address] [place] [address] Care Team Providers Care Inspector Final Assembly Conveyor Line Name Role Phone Aaliyah Smith MD [facility] Primary Care Provider Manuel shore Reason for Visit * Reason Onset Date Comments TEST RESULTS 08/09/2016 Encounter Details Date Type Department Care Team Description 08/09/2016 Telephone Medicine/Pediatrics - [address] [phone] Aaliyah Smith MD TEST RESULTS Social History Tobacco Use Types Packs/Day Years Used Date Smoking Tobacco: Former Cigarettes 1 5 Smokeless Tobacco: Never Comments:quit 46 years ago Alcohol Use Standard Drinks/Week Comments No 0 (1 standard drink = 0.6 oz pur e alcohol) Sex Assigned at Date Recorded Not on file documented as of this encounter Miscellaneous Notes * Telephone Encounter - Marilyn Diaz Rn - 08/09/2016 9:17 AM EDT FYI Pt seen on 08/02/[address] Raygoza Reviewed results with pt. W/i normal range, Pt agreed to go for xrays , Pt requesting copy Will mail to pt . * Telephone Encounter - Geena Asif - 08/09/2016 8:45 AM EDT Pt requesting his resent lab work results Awaiting call back documented in this encounter Plan of Treatment Not on file documented as of this encounter Visit Diagnoses Not on filedocumented in this encounter Care Teams Inspector Final Assembly Conveyor Line Relationship Specialty Start Date End Date Aaliyah Smith MD PCP - General Internal Medicine 01/04/15 09/22/20 [facility], Pcp PCP - General Internal Medicine 09/23/20 documented as of this encounter
--- OUTSIDE RECORDS SUMMARY | 2024-04-24 11:18 | XMS_ITS | Encounter Summary ---
Author Organization [facility] Address [address] [place] [address] Care Team Providers Care Icu Registered Nurse Name Role Phone Aaliyah Smith MD Primary Care Provider Clarice webster [facility], Pcp Primary Care Provider Manuel shore Encounter Details Date Type Department Care Team Description 01/15/2018 Business Services Tech Report Medical Records [address] [place] [address] Tanisha Rajan MD Social History Tobacco Use [...] on filedocumented in this encounter Care Teams Icu Registered Nurse Relationship Specialty Start Date End Date Aaliyah Smiht MD PCP - General Internal Medicine 01/04/15 09/22/20 [facility], Pcp PCP - General Internal Medicine 09/23/20 documented as of this encounter
--- OUTSIDE RECORDS SUMMARY | 2024-04-24 11:18 | XMS_ITS | Encounter Summary ---
Author Organization [facility] Address [address] [place] [address] Care Team Providers Care Iron Miner Name Role Phone Aaliyah Smith MD Primary Care Provider Clarice webster [facility], Pcp Primary Care Provider Manuel shore Encounter Details Date Type Department Care Team Description 11/07/2019 [facility] Medical Records [address] [place] [address] Abstract, Provider Social History Tobacco Use Types [...] on filedocumented in this encounter Care Teams Iron Miner Relationship Specialty Start Date End Date Aaliyah Smith MD PCP - General Internal Medicine 01/04/15 09/22/20 [facility], Pcp PCP - General Internal Medicine 09/23/20 documented as of this encounter
--- OUTSIDE RECORDS SUMMARY | 2024-04-24 11:18 | XMS_ITS | Clinical Summary ---
Author Organization [employer] Address [address] [facility] [address] [place] [address] Care Team Providers Care Pharmacy Salesperson Name Role Phone Unavailable Primary Care Provider [...]
--- OUTSIDE RECORDS SUMMARY | 2024-04-24 11:18 | XMS_ITS | Encounter Summary ---
Author Organization [facility] Address [address] [place] [address] Care Team Providers Care Branding Machine Operator Name Role Phone Ricky West MD Primary Care Provider Unavail Aaliyah Yanez MD Primary Care Provider Clarice Mac, Pcp Primary Care Provider Manuel shore Encounter Details Date Type Department Care Team Description 07/22/2013 Chief Customer Officer Report Medical Records [address] [place] [address] Antonio Jarvis Social History Tobacco Use Types Packs/Day Years [...] on filedocumented in this encounter Care Teams Branding Machine Operator Relationship Specialty Start Date End Date Ricky West MD PCP - General Internal Medicine 01/02/13 01/03/15 Aaliyah Smith MD PCP - General Internal Medicine 01/04/15 09/22/20 [facility], Pcp PCP - General Internal Medicine 09/23/20 documented as of this encounter
--- OUTSIDE RECORDS SUMMARY | 2024-04-24 11:18 | XMS_ITS | Encounter Summary ---
Author Organization [facility] Address [address] [place] [address] Care Team Providers Care Speed Belt Sander Name Role Phone Ricky West MD Primary Care Provider Unavail Aaliyah Yanez MD Primary Care Provider Clarice Mac, Pcp Primary Care Provider Manuel shore Encounter Details Date Type Department Care Team Description 01/05/2014 Hospital Medical Records [address] [place] [address] Chris Little MD Social History Tobacco Use Types Packs/Day [...] on filedocumented in this encounter Care Teams Speed Belt Sander Relationship Specialty Start Date End Date Ricky West MD PCP - General Internal Medicine 01/02/13 01/03/15 Aaliyah Smith MD PCP - General Internal Medicine 01/04/15 09/22/20 Bubba, Pcp PCP - General Internal Medicine 09/23/20 documented as of this encounter
--- OUTSIDE RECORDS SUMMARY | 2024-04-24 11:18 | XMS_ITS | Encounter Summary ---
Author Organization [facility] Address [address] [place] [address] Care Team Providers Care Custom Tailor Apprentice Name Role Phone Aaliyah Smith MD Primary Care Provider Clarice webster [facility], Pcp Primary Care Provider Manuel shore Encounter Details Date Type Department Care Team Description 03/30/2020 Armed Security Professional Report Medical Records [address] [place] [id number] Tanisha Rajan MD Social History Tobacco Use [...] on filedocumented in this encounter Care Teams Custom Tailor Apprentice Relationship Specialty Start Date End Date Aaliyah Smith MD PCP - General Internal Medicine 01/04/15 09/22/20 Bubba, Pcp PCP - General Internal Medicine 09/23/20 documented as of this encounter
--- OUTSIDE RECORDS SUMMARY | 2024-04-24 11:18 | XMS_ITS | Encounter Summary ---
Author Organization [facility] Address [address] [place] [address] Care Team Providers Care Aircraft Fueler Name Role Phone Ricky West MD Primary Care Provider Aaliyah Jefferson MD Primary Care Provider Clarice webster [facility], Pcp Primary Care Provider Manuel shore Encounter Details Date Type Department Care Team Description 10/06/2013 Billing Machine Operator Report Medical Records [address] [place] [address] Toby Edge MD Social History Tobacco Use Types Packs/Day [...] on filedocumented in this encounter Care Teams Aircraft Fueler Relationship Specialty Start Date End Date Ricky West MD PCP - General Internal Medicine 01/02/13 01/03/15 Aaliyah Smith MD PCP - General Internal Medicine 01/04/15 09/22/20 [facility], Pcp PCP - General Internal Medicine 09/23/20 documented as of this encounter
--- OUTSIDE RECORDS SUMMARY | 2024-04-24 11:18 | XMS_ITS | Clinical Summary ---
Author Organization [facility] Address [address] [place], [place] [address] Care Team Providers Care Director Workers Compensation Name Role Phone Aaliyah Carrillo MD Primary Care Provider [phone] Allergies No known active allergies Medications Medication [...] age to complete this topic Care Teams Director Workers Compensation Relationship Specialty Start Date End Date Aaliyah Carrillo MD PCP - General Internal Medicine 08/24/19
--- OUTSIDE RECORDS SUMMARY | 2024-04-24 11:18 | XMS_ITS | Encounter Summary ---
Author Organization [facility] Address [address] [place] [address] Care Team Providers Care Crown Attacher Name Role Phone Aaliyah Smith MD Primary Care Provider Clarice webster [facility], Pcp Primary Care Provider Manuel shore Encounter Details Date Type Department Care Team Description 04/13/2016 Program Admin Report Medical Records [address] [place] [address] Antonio Jarvis Social History Tobacco Use Types [...] on filedocumented in this encounter Care Teams Crown Attacher Relationship Specialty Start Date End Date Aaliyah Smith MD PCP - General Internal Medicine 01/04/15 09/22/20 Bubba, Pcp PCP - General Internal Medicine 09/23/20 documented as of this encounter
--- OUTSIDE RECORDS SUMMARY | 2024-04-24 11:18 | XMS_ITS | Encounter Summary ---
Author Organization [facility] Address [address] [place] [address] Care Team Providers Care Professor Of Finance Name Role Phone Ricky West MD Primary Care Provider Unavail Aaliyah Yanez MD Primary Care Provider Clarice Mac, Pcp Primary Care Provider Manuel shore Encounter Details Date Type Department Care Team Description 10/26/2014 Refrigerated Company Driver Report Medical Records [address] [place] [address] Antonio Jarvis Social History Tobacco Use Types [...] on filedocumented in this encounter Care Teams Professor Of Finance Relationship Specialty Start Date End Date Ricky West MD PCP - General Internal Medicine 01/02/13 01/03/15 Aaliyah Smith MD PCP - General Internal Medicine 01/04/15 09/22/20 [facility], Pcp PCP - General Internal Medicine 09/23/20 documented as of this encounter
--- OUTSIDE RECORDS SUMMARY | 2024-04-24 11:18 | XMS_ITS | Encounter Summary ---
Author Organization [facility] Address [address] [place] [address] Care Team Providers Care Performance Test Architect Name Role Phone Pcp, No Primary Care Provider Unavailabl e Unknown Primary Care Provider [phone] Aaliyah Carrillo MD Primary Care Provider [phone] Encounter Details Date Type Department Care Team (Late st Contact Info) Description 12/19/2020 Scanned Document [facility] Heart & Vascular [place] at [address] [phone] Provider, External, [address] [place] [address] Social History Tobacco Use Types Packs/Day Years [...] on filedocumented in this encounter Care Teams Performance Test Architect Relationship Specialty Start Date End Date Pcp, No PCP - General General Medicine 12/19/20 04/14/23 Unknown Unknow Provider Address PCP - General 04/16/23 06/11/23 Aaliyah Carrillo MD [address] [place] [phone] PCP - General Internal Medicine 06/12/23 Aaliyah Carrillo [address] [place] [address], [address] [address] Primary Care Provider Internal Medicine 04/15/23 Aaliyah Carrillo [address] [place] [address], [address] [address] Primary Care Provider Internal Medicine 04/15/23 Benji Hardwick [address] [place] [address]?? [place] [address] Physician Pulmonary Medicine 04/15/23 documented as of this encounter
--- OUTSIDE RECORDS SUMMARY | 2024-04-24 11:18 | XMS_ITS | Encounter Summary ---
Author Organization [facility] Address [address] [place] [address] Care Team Providers Care Mine Supervisor Name Role Phone Ricky West MD Primary Care Provider Aaliyah Jefferson MD Primary Care Provider Clarice Mac, Pcp Primary Care Provider Manuel shore Encounter Details Date Type Department Care Team Description 07/08/2013 Release of Information Medical Records [address] [place] [address] Abstract, Provider Social History Tobacco Use Types [...] on filedocumented in this encounter Care Teams Mine Supervisor Relationship Specialty Start Date End Date Ricky West MD PCP - General Internal Medicine 01/02/13 01/03/15 Aaliyah Smith MD PCP - General Internal Medicine 01/04/15 09/22/20 [facility], Pcp PCP - General Internal Medicine 09/23/20 documented as of this encounter
--- OUTSIDE RECORDS SUMMARY | 2024-04-24 11:18 | XMS_ITS | Encounter Summary ---
Author Organization [facility] Address [address] [place] [address] Care Team Providers Care Organic Lab Worker Name Role Phone Aaliyah Smith MD Primary Care Provider Clarice webster [facility], Pcp Primary Care Provider Manuel shore Encounter Details Date Type Department Care Team Description 01/28/2017 [facility] Medical Records [address] [place] [address] Abstract, Provider Social History Tobacco Use Types [...] on filedocumented in this encounter Care Teams Organic Lab Worker Relationship Specialty Start Date End Date Aaliyah Smith MD PCP - General Internal Medicine 01/04/15 09/22/20 Bubba, Pcp PCP - General Internal Medicine 09/23/20 documented as of this encounter
--- OUTSIDE RECORDS SUMMARY | 2024-04-24 11:18 | XMS_ITS | Clinical Summary ---
Author Organization [facility] Address [address] [place] [address] Care Team Providers Care School Speech Language Pathologist Name Role Phone Aaliyah Carrillo MD Primary Care Provider [phone] Allergies No known active allergies Medications Medication [...] drink = 0.6 oz pur e alcohol) [facility] Utilities Answer Date Recorded In the past 12 months has e twidox, gas, oil, or water [employer] threatened to shut off services in your [...] place to sleep or slept in a fdc (including now)? No 06/12/2023 Sex and Gender [...] 5:45 AM 06/12/2023 11:05 AM Care Teams School Speech Language Pathologist Relationship Specialty Start Date End Date Aaliyah Carrillo MD [address] [place] [phone] PCP - General Internal Medicine 06/12/23 Aaliyah Carrillo [address] [facility], [address], [place] [address] Primary Care Provider Internal Medicine 04/15/23 Benji Hardwick [address] [place] [address]?? [place] [address] Physician Pulmonary Medicine 04/15/23
[2024-04-24 11:21] LABS: MANUAL DIFF FLAG NO
[2024-04-24 11:43] LABS: Basophils Percent Auto 0.6 % (0-2); Eosinophils Absolute Auto 0.1 X10*3/uL (0.0-0.4); Eosinophils Percent Auto 1.8 % (0-4); Hematocrit 43.5 % (42.0-52.0); Hemoglobin 14.4 g/dl (14.0-18.0); Imm Gran Abs Auto 0.01 X10*3/uL (0.00-0.03); Imm Gran Pct Auto 0.2 % (0.0-0.4); Lymphocytes Absolute Auto 1.7 X10*3/uL (1.2-4.9); Lymphocytes Percent Auto 26.8 % (20-40); Mean Corpuscular HGB Conc 33.1 g/dl (31.0-36.0); Mean Corpuscular Hemoglobin 29.6 pg (27.0-33.0); Mean Corpuscular Volume 89.5 fL (80.0-98.0); Mean Platelet Volume 11.3 fL (9.4-12.4); Monocytes Absolute Auto 0.7 X10*3/uL (0.1-1.2); Neutrophils Absolute Auto 3.7 x10*3/uL (2.0-8.3); Neutrophils Percent Auto 59.6 % (45-73); Platelet Count 258 X10*3/uL (160-400); Red Blood Count 4.86 X10*6/uL (4.60-5.80); Red Cell Distribution Width 13.4 % (11.0-16.0); White Blood Count 6.2 X10*3/uL (4.8-10.8)
[2024-04-24 11:57] LABS: Estimated Average Glucose 108 mg/dL; Hemoglobin A1c % 5.4 % (<6.0); Total Hemoglobin (HGBA1C) 3802.7942 umol/L
[2024-04-24 12:26] LABS: Alanine Aminotransferase 22 U/L (0-40); Albumin Level 3.8 g/dL (3.5-5.0); Alkaline Phosphatase 55 U/L (39-117); Anion Gap 10 (12-20); Aspartate Amino Transferase 32 U/L (5-37); Blood Urea Nitrogen 15 mg/dL (9-16); Calcium 9.3 mg/dL (8.4-10.2); Carbon Dioxide 28 mmol/L (22-29); Chloride 105 mmol/L (96-108); Cholesterol 128 mg/dL (<200); Estimated Glomerular Filt Rate > 60; Glucose Random 102 mg/dL (60-115); HDL Cholesterol 44 mg/dL (>40); Iron 123 mcg/dL (45-160); LDL Cholesterol Calculated 68 mg/dL (<100); Percent Iron Saturation 53 % (15-50); Potassium 3.8 mmol/L (3.3-5.1); Sodium 139 mmol/L (135-145); Total Iron Binding Capacity 231 mcg/dL (228-428); Total Protein 6.8 g/dL (6.5-8.0); Triglycerides 81 mg/dL (<150); Unsaturated Iron Binding 108 ug/dL
[2024-04-24 12:55] LABS: Folate 7.3 ng/mL (> or = 4.0); Vitamin B12 311 pg/mL (200-900)
== END 2024-04-24 10:06 | disposition home or self-care (01) ==
LOC: HO.WFDLDS 10:05
PROVIDERS: Visit Provider Internal Medicine
DX: Z13.0 Encounter for screening for diseases of the blood and blood-forming organs and certain disorders involving the immune mechanism (principal); G62.9 Polyneuropathy, unspecified; E78.5 Hyperlipidemia, unspecified; Z13.228 Encounter for screening for other metabolic disorders; Z13.1 Encounter for screening for diabetes mellitus
CPT/HCPCS: 36415; 80053; 80061; 82607; 82746; 83036; 83540; 85025

== ENCOUNTER 2024-05-12 11:04 | Outpatient (AMB) | payer MEDICARE, SELFPAY ==
--- NOTE | 2024-05-12 11:07 | MHC.OFFVIS ---
Vital Signs 05/12/24 11:11 Height 6 ft 2.41 in Weight 234 lb BMI 29.7 Intake Visit Reasons: Right knee pain Intake Note: Evert is a 79 year old male who presents with complaints of intermittent pain in his right knee. He describes his pain as achy in nature. He has taken Tylenol which gives him mild relief. He denies any fevers or chills. He has tried physical therapy exercises which aggravated his pain. Allergies No Known Allergies Allergy (Verified 05/12/24 11:08) Medication List - Last Reconciled 05/12/24 by Oniel Javier MD albuterol sulfate 90 mcg/actuation 2 puffs inhalation Q4H PRN 90 days atorvastatin 20 mg PO DAILY 90 days levothyroxine 200 mcg PO DAILY pregabalin 150 mg PO BID 90 days umeclidinium-vilanterol 62.5-25 mcg/actuation (Anoro Ellipta) 1 inh inhalation Q24H PFSH Family History Mother Coronary artery disease Pulmonary embolism Father Cancer of prostate Social History Housing: House Patient Tobacco Use Status: Former Tobacco user Cigarette Packs Per Day: 0.5 Years Smoked: 3 e-Cigarette/Vaping Use: Never Used Second Hand Smoke Exposure: No service: Yes Current occupational status: retired Cognitive needs: No Hearing needs: Yes (bilateral hearing aids) Vision needs: Yes (glasses) Physical Exam Vital Signs: BMI result Body Mass Index 29.7 Const Other: Well-nourished well-developed very friendly male awake alert and oriented x3 in no acute distress Extrem Other: Bilateral lower extremity examination shows good capillary refill, no skin lesions noted, normal sensation light touch Right knee examination shows no effusion, full active extension and flexion to 120 degrees, no signs of infection, discomfort with range of motion, no instability Office Procedures AMB Joint Injection/Aspiration Joint Injection/Aspiration Primary Site: right knee Prep: site was prepped using aseptic technique Injected: 40 mg of, DepoMedrol and 1% plain lidocaine Procedure: The patient tolerated the procedure well Coding 00353 - Large joint Procedure code (CPT) selection complete Assessment & Plan Assessment & Plan (1) Right knee pain: Code(s): M25.561 - Pain in right knee Category: Medical Plan Mr. Clemons presents with right knee pain most likely due to chronic inflammation. The risks and benefits of a right knee cortisone injection were discussed at length with the patient. The patient wished to proceed. The patient tolerated the injection well. He will continue with his home stretching program. He will contact me prior to his follow-up appointment in 3 months should any questions or concerns arise. I spent 21 minutes in reviewing the patient's records and imaging studies, seeing the patient and documenting in the medical record. Orders: Orders AMB Joint Injection/Aspiration Today M25.561 - Pain in right knee Coding Level of Care Code Est Pt Level 3 (54131) Complex EM visit Add On G2211 Diagnoses Right knee pain M25.561 CPT Codes Coding - 95028 Large joint: 71799 - Large joint ([id number])
[2024-05-12 11:11] VITALS: BMI 29.7
--- OUTSIDE RECORDS SUMMARY | 2024-05-12 13:39 | XMS_ITS | Encounter Summary ---
Author Name [facility] [place] Address [address] [place] [address] Care Team Providers Care Servicing Manager Name Role Phone TERRIE DIAZ Primary [...] Cardenas's Name Patient's Relationship to Policy Cardenas [facility] MEDICARE SUPPLEMEN VEL MEDEX BRONZ E Mar 21, 2011 [id number] [phone] Katlyn BELLO PATIENT [facility] MEDICARE SUPPLEMEN VEL MEDEX BRONZ E Mar 21, 2011 [id number] [phone] Katlyn BELLO PATIENT MEDICARE (WNR) MEDICARE (M) PART A Dec 19, 2008 PART A [id number] Katlyn BELLO PATIENT MEDICARE (WN) MEDICARE (M) PART B Dec 19, 2008 PART B [id number] Katlyn BELLO PATIENT Selected Encounter This [...] Primary/Secondary Diagnosis Diagnosis Name Provider Source Apr 29, 2024 04:05 PM PRIMARY Open angle with borderline findings, low risk, bilateral SABINA ALBRECHT [facility] [place] Social History: Smoking Status (Most [...] 27, 2023 03:00 PM [facility]AC[facility] Tobacco Use History This section includes a history of the smoking, or tobacco-related health factors, that were collected on or before the date of the Encounter. The data comes from the [place] facility where the Encounter took place. Date/Time Smoking Status/Tobacco Use Comment F acility Dec 27, 2023 03:00 PM VA-TOBACCO QUIT 15 YRS OR MORE [facility] [place] [facility] May 25, 2022 01:30 PM VA-TOBACCO NEVER USED [facility] [place] [facility] May 19, 2021 02:00 PM VA-TOBACCO FORMER USER [facility] [place] [facility] May 19, 2021 02:00 PM VA-TOBACCO QUIT 15 YRS OR MORE [facility] [place] [facility] Mar 24, 2020 08:36 AM VA-TOBACCO FORMER USER [facility] [place] [facility] Mar 24, 2020 08:36 AM VA-TOBACCO QUIT 15 YRS OR MORE [facility] [place] [facility] Sep 17, 2017 02:25 PM QUIT TOBACCO USE > 7 YEARS AGO [facility] [place] [facility] Encounter Notes: All associated encounter notes This section contains the clinical notes associated to the Encounter. Date/Time Encounter Note(s) Provider Source Mar 24, 2024 11:59 AM OPTOMETRY NOTE: LOCAL TITLE: OPTOMETRY NOTE(T) STANDARD TITLE: OPTOMETRY NOTE DATE OF NOTE: MAR 24, 2024@11:59 ENTRY DATE: MAR 24, 2024@11:59:52 AUTHOR: SABINA ALBREHCT EXP COSIGNER: URGENCY: STATUS: COMPLETED Results were viewed and clinical findings were reviewed with student internal combustion engine subassembler and patient and results are in this note. Assessment and plan are reasonable. Patient remains low risk open-angle glaucoma suspect OU. Follow-up as scheduled for today. /renetta/ SABINA ALBRECHT OD STAFF CLAIM ANALYST Signed: 03/24/2024 12:00 [facility] [place] [facility] Mar 24, 2024 10:57 AM OPTOMETRY [...] and clinical findings were reviewed with student internal combustion engine subassembler and patient and results are in this note. Assessment and plan are reasonable. Patient remains low risk open-angle glaucoma suspect OU. Follow-up as scheduled for today. /renetta/ SABINA BANKS OPTOMETRY STUDENT Signed: 03/24/2024 11:54 /renetta/ SABINA ALBRECHT OD STAFF CLAIM ANALYST Cosigned: 03/24/2024 11:59 [facility]ANKS [facility] [place]
--- OUTSIDE RECORDS SUMMARY | 2024-05-12 13:39 | XMS_ITS | Clinical Summary ---
Author Organization [facility] Address [address] [place], [place] [address] Care Team Providers Care Fitter Machinist Name Role Phone Aaliyah Carrillo MD Primary Care Provider [phone] Allergies No known active allergies Medications Medication [...] age to complete this topic Care Teams Fitter Machinist Relationship Specialty Start Date End Date Aaliyah Carrillo MD PCP - General Internal Medicine 08/24/19
--- OUTSIDE RECORDS SUMMARY | 2024-05-12 13:39 | XMS_ITS | Encounter Summary ---
Author Organization [facility] Address [address] [place] [address] Care Team Providers Care Sheet Metal Layout Worker Name Role Phone Aaliyah Smith MD Primary Care Provider Clarice webster [facility], Pcp Primary Care Provider Manuel shore Encounter Details Date Type Department Care Team Description 04/13/2016 Welt Sole Layer Report Medical Records [address] [place] [address] Antonio Jarvis Social History Tobacco Use Types [...] on filedocumented in this encounter Care Teams Sheet Metal Layout Worker Relationship Specialty Start Date End Date Aaliyah Smith MD PCP - General Internal Medicine 01/04/15 09/22/20 Bubba, Pcp PCP - General Internal Medicine 09/23/20 documented as of this encounter
--- OUTSIDE RECORDS SUMMARY | 2024-05-12 13:39 | XMS_ITS | Continuity of Care Document ---
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 It does not include entries that were removed or entered in error. Problem Status Onset Date Problem Type Date of Resolution Comments Source AF - Atrial Fibrillation ([facility] [id number]) Active Condition [facility] Benign prostatic hyperplasia Active Condition [facility] COPD - Chronic Obstructive Pulmonary Disease ([facility] [id number]) Active Condition [facility] [place] [...] Encounter for other administrative examinations Active Diagnosis [facility] Diagnosis: ICD-10-CM 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 [facility] Medications Combined list of outpatient medications [...] BREATH RESPIR ATORY (INHAL ATION) ACTIVE 02/20/2025 [id number] DAVID MUSA IG P 2024 1 [facility] ALBUTEROL 90MCG/ACTUA T (CFC-F) INHL,ORAL,8 .5GM DOSE COUNTER INHALE 2 PUFFS BY MOUTH EVERY 4 HOURS NEEDED FOR BRONCHOS PASM RESPIR ATORY (INHAL ATION) DISCONT INUED 12/27/2024 [id number] [facility] DIAZ [facility] ALBUTEROL INHALER INHL,ORAL INHALE BY MOUTH RESPIR ATORY (INHAL ATION) ACTIVE Sebastian MORA 2022 [facility] ATORVASTATI N TAB TAKE BY MOUTH ORAL ACTIVE Sebastian MORA ICHLIDA 2022 [facility] CARBAMIDE PEROXIDE 6.5%/GLYCER IN SOLN,OTIC INSTILL 5 DROPS INTO EACH EAR ONCE 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 (OTIC) 01/26/2024 [id number] [facility]E DIAZ 2023 [facility] CARBOXYMETH YLCELLULOSE NA 0.5% SOLN,OPH INSTILL 1 DROP INTO EACH EYE FOUR TIMES DAILY NEEDED FOR DRY EYE OPHTHA LMIC SUSPEND ED 03/25/2025 [id number] 5 Chioma ALBRECHT NDREW E 2024 15 [facility] CARBOXYMETH YLCELLULOSE NA 0.5% SOLN,OPH INSTILL 1 DROP INTO EACH EYE FOUR TIMES DAILY NEEDED FOR DRY EYES OPHTHA LMIC 05/16/2023 [id number] Sebastian MORA 2022 45 [facility] LEVOTHYROXI NE NA 200MCG TAB (SYNTHROID) TAKE ONE TABLET BY MOUTH EVERY MONTH ORAL ACTIVE TERRIE DIAZ 2018 [facility] LEVOTHYROXI NE NA 200MCG TAB (SYNTHROID) TAKE ONE TABLET BY MOUTH EVERY MORNING 30 MINUTES BEFORE BREAKFAS T ORAL ACTIVE TERRIE DIAZ 2017 [facility] MINERAL OIL,LIGHT/P ETROLATUM (PF) OINT,OPH APPLY THIN RIBBON INTO EACH EYE AT BEDTIME FOR DRY EYE OPHTHA LMIC 03/25/2024 [id number] 5 Chioma ALBRECHT NDREW E 2023 3 [facility] OLODATEROL 2.5MCG/TIOT ROPIUM 2.5MCG/ACTU AT INHL,ORAL,6 0D,4GM INHALE 2 PUFFS (1 DOSE) BY MOUTH ONCE DAILY RESPIR ATORY (INHAL ATION) ACTIVE 03/26/2025 [id number] 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,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 P 2024 3 [facility] OLODATEROL 2.5MCG/TIOT ROPIUM 2.5MCG/ACTU AT INHL,ORAL,6 0D,4GM INHALE 2 PUFFS (1 DOSE) BY MOUTH ONCE DAILY RESPIR ATORY (INHAL ATION) DISCONT INUED 02/21/2025 [id number] 5 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,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 P 2024 1 [facility] [...] Site Reaction Lot Number CVX Code 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 Comments Source COVID-19 (MODERNA), MRNA, LNP-S, PF, 100 MCG/0.5 ML DOSE 2 2020 207 complet ed MOD; [id number]; 1 [facility] [...] Dec 27, 2023 03:31 PM Reporting Lab: [facility] [address] Performing Lab: [facility]YN [facility]ENTERUSE[address] [address] [facility]YN [facility]ENTERUSE [facility] HEMOGLOBI N A1C PANEL HEMOGLOBIN A1C/HEMOGLO [...] Dec 27, 2023 03:31 PM Reporting Lab: [facility] COUNTYN [address] [address] Performing Lab: [facility]ENTERUSE[address] [address] [facility] CBC LEUKOCYTES [#/VOLUME] IN BLOOD BY AUTOMATED COUNT 7.94 10*3/u L 4.50 - 11.00 12/26 Specimen Type: BLOOD No comment entered. Ordering Provider: MANOLO DIAZ Report Released Date/Time: Dec 27, 2023 03:31 PM Reporting Lab: [facility]ENTERUSE[address] [address] Performing Lab: [facility]YN [facility]ENTERUSE[address] [address] [facility] CBC ERYTHROCYTE S [#/VOLUME] IN BLOOD BY AUTOMATED COUNT 4.90 10*6/u L 4.23 - 5.66 12/26 Specimen Type: BLOOD No comment entered. Ordering Provider: MANOLO DIAZ Report Released Date/Time: Dec 27, 2023 03:31 PM Reporting Lab: [facility] [facility] [address] [facility] [address] Performing Lab: [facility] [place] [facility] [address] [facility] [address] [facility] CBC HEMOGLOBIN [MASS/VOLUM E] IN BLOOD 14.7 g/dL 12.8 - 17 12/26 Specimen Type: BLOOD No comment entered. Ordering Provider: MANOLO DIAZ Report Released Date/Time: Dec 27, 2023 03:31 PM Reporting Lab: [facility] [facility] [address] [facility] [address] Performing Lab: [facility] [place] [facility] [address] [facility] [address] [facility] [place] [facility] CBC HEMATOCRIT [VOLUME FRACTION] OF BLOOD BY AUTOMATED COUNT 43.5 39.2 - 50.4 12/26 Specimen Type: BLOOD No comment entered. Ordering Provider: MANOLO DIAZ Report Released Date/Time: Dec 27, 2023 03:31 PM Reporting Lab: [facility] [place] [facility] [address] [facility] [address] Performing Lab: [facility] [place] [facility] [address] [facility] [address] [facility]RL [facility] [facility] CBC MCV [ENTITIC VOLUME] BY AUTOMATED COUNT 88.8 fL 82 - 99 12/26 Specimen Type: BLOOD No comment entered. Ordering Provider: MANOLO DIAZ Report Released Date/Time: Dec 27, 2023 03:31 PM Reporting Lab: [facility] [place] [facility] [address] [facility] [address] Performing Lab: [facility] [place] [facility] [address] [facility] [address] [facility] CBC MCHC [MASS/VOLUM E] BY AUTOMATED COUNT 33.8 g/dL 30.8 - 35.1 12/26 Specimen Type: BLOOD No comment entered. Ordering Provider: MANOLO DIAZ Report Released Date/Time: Dec 27, 2023 03:31 PM Reporting Lab: [facility] [place] [facility] [address] [facility] [address] Performing Lab: [facility] [place] [facility] [address] [facility] [address] [facility] CBC PLATELETS [#/VOLUME] IN BLOOD BY AUTOMATED COUNT 263 10*3/u L 140 - 360 12/26 Specimen Type: BLOOD No comment entered. Ordering Provider: MANOLO DIAZ Report Released Date/Time: Dec 27, 2023 03:31 PM Reporting Lab: [facility] [place] [facility] [address] [facility] [address] Performing Lab: [facility] [place] [facility] [address] [facility] [address] [facility] [place] [facility] CBC ERYTHROCYTE DISTRIBUTIO N WIDTH [RATIO] BY AUTOMATED COUNT 13.2 12.0 - 16.0 12/26 Specimen Type: BLOOD No comment entered. Ordering Provider: MANOLO DIAZ Report Released Date/Time: Dec 27, 2023 03:31 PM Reporting Lab: [facility] [place] [facility] [address] [facility] [address] Performing Lab: [facility] [place] [facility] [address] [facility] [address] [facility] CBC MCH [ENTITIC MASS] BY AUTOMATED COUNT 30.0 pg 26.2 - 32.6 12/26 Specimen Type: BLOOD No comment entered. Ordering Provider: MANOLO DIAZ Report Released Date/Time: Dec 27, 2023 03:31 PM Reporting Lab: [facility] [place] [facility] [address] [facility] [address] Performing Lab: [facility] [place] [facility] [address] [facility] [address] [facility] [place] [facility] BASIC METABOLIC PANEL (non-fast ing) UREA NITROGEN [MASS/VOLUM E] IN SERUM OR PLASMA 17 mg/dL 7 - 25 12/26 Specimen Type: SERUM No comment entered. Ordering Provider: MANOLO DIAZ Report Released Date/Time: Dec 27, 2023 03:31 PM Reporting Lab: [facility] [place] [facility] [address] [facility] [address] Performing Lab: [facility] [place] [facility] [address] [facility] [address] [facility]ITALRL [facility]N [place] [facility] BASIC METABOLIC PANEL (non-fast ing) GLUCOSE [MASS/VOLUM E] IN SERUM OR PLASMA 89 mg/dL 65 - 100 12/26 Specimen Type: SERUM No comment entered. Ordering Provider: MANOLO DIAZ Report Released Date/Time: Dec 27, 2023 03:31 PM Reporting Lab: [facility]ENTERUSE[address] [address] Performing Lab: [place] [facility]ENTER[facility] [address] [facility]ITAL[facility] COUNTYTRN [facility]ENTERUSE [facility] BASIC METABOLIC PANEL (non-fast ing) SODIUM [MOLES/VOLU ME] IN SERUM OR PLASMA 140 mmol/L 135 - 145 12/26 Specimen Type: SERUM No comment entered. Ordering Provider: MANOLO DIAZ Report Released Date/Time: Dec 27, 2023 03:31 PM Reporting Lab: [facility]RL [facility] CENTERUSETS [address] [address] Performing Lab: [place] [facility]ENTER[facility] [address] [facility]ITALRL TRN [facility]ENTERUSE [facility] BASIC METABOLIC PANEL (non-fast ing) POTASSIUM [MOLES/VOLU ME] IN SERUM OR PLASMA 4.0 mmol/L 3.5 - 5.0 12/26 Specimen Type: SERUM No comment entered. Ordering Provider: MANOLO DIAZ Report Released Date/Time: Dec 27, 2023 03:31 PM Reporting Lab: [facility] [place] [facility] [address] [facility] [address] Performing Lab: [place] [facility]ENTER[facility] [address] [address] [facility] BASIC METABOLIC PANEL (non-fast ing) CHLORIDE [MOLES/VOLU ME] IN SERUM OR PLASMA 107 mmol/L 100 - 110 12/26 Specimen Type: SERUM No comment entered. Ordering Provider: MANOLO DIAZ Report Released Date/Time: Dec 27, 2023 03:31 PM Reporting Lab: [address] [address] Performing Lab: [phone] [place] [address] BASIC METABOLIC PANEL (non-fast ing) CARBON DIOXIDE, TOTAL [MOLES/VOLU ME] IN SERUM OR PLASMA 23 meq/L 20 - 30 12/26 Specimen Type: SERUM No comment entered. Ordering Provider: MANOLO DIAZ Report Released Date/Time: Dec 27, 2023 03:31 PM Reporting Lab: [place] [address] Performing Lab: [phone] [place] [address] BASIC METABOLIC PANEL (non-fast ing) CREATININE [MASS/VOLUM E] IN SERUM OR PLASMA 0.96 mg/dL 0.50 - 1.40 12/26 Specimen Type: SERUM No comment entered. Ordering Provider: MANOLO DIAZ Report Released Date/Time: Dec 27, 2023 03:31 PM Reporting Lab: [address] [address] Performing Lab: [address] [phone] [place] [address] BASIC METABOLIC PANEL (non-fast ing) GLOMERULAR FILTRATION RATE/1.73 SQ M.PREDICTED [VOLUME RATE/AREA] IN SERUM, PLASMA OR BLOOD BY CREATININE- BASED FORMULA (CKD-EPI 2020) 81 mL/min 60 12/26 Specimen Type: SERUM No comment entered. Ordering Provider: MANOLO DIAZ Report Released Date/Time: Dec 27, 2023 03:31 PM Reporting Lab: [facility] [place] [facility] [address] [facility] [address] Performing Lab: [facility] [place] [facility] [address] [facility] [address] [facility] [place] [facility] LIPID PANEL, NON FASTING CHOLESTEROL [MASS/VOLUM E] IN SERUM OR PLASMA 153 mg/dL 12/26 Specimen Type: SERUM No comment entered. Ordering Provider: MANOLO DIAZ Report Released Date/Time: Dec 27, 2023 03:31 PM Reporting Lab: [facility] [place] [facility] [address] [facility] [address] Performing Lab: [facility] [place] [facility] [address] [facility] [address] [facility]ITALRH[facility] COUNTYTRN [facility]ENTERCHUSE [facility] LIPID PANEL, NON FASTING TRIGLYCERID E [MASS/VOLUM E] IN SERUM OR PLASMA 105 mg/dL 0 - 150 12/26 Specimen Type: SERUM No comment entered. Ordering Provider: MANOLO DIAZ Report Released Date/Time: Dec 27, 2023 03:31 PM Reporting Lab: [facility] [place] [facility] [address] [facility] [address] Performing Lab: [facility] [place] [facility] [address] [facility] [address] [facility]ITALRH[facility] SUM[facility] COUNTYTRN [facility]ENTERCHUSE [facility] LIPID PANEL, NON FASTING CHOLESTEROL IN LDL [MASS/VOLUM E] IN SERUM OR PLASMA BY CALCULATION 86 mg/dL 0 - 129 12/26 Specimen Type: SERUM No comment entered. Ordering Provider: MANOLO DIAZ Report Released Date/Time: Dec 27, 2023 03:31 PM Reporting Lab: [facility] [place] [facility] [address] [facility] [address] Performing Lab: [place] [facility] [place] [facility] [address] [facility] [address] [facility]ITALRHILL [facility] COUNTYTRN [place] [facility] LIPID PANEL, NON FASTING CHOLESTEROL .TOTAL/CHOL ESTEROL IN HDL [MASS RATIO] IN SERUM OR PLASMA 3.3 12/26 Specimen Type: SERUM No comment entered. Ordering Provider: MANOLO DIAZ Report Released Date/Time: Dec 27, 2023 03:31 PM Reporting Lab: [facility] [place] [facility] [address] [facility] [address] Performing Lab: [facility] [place] [facility] [address] [facility] [address] [facility] [place] [facility] LIPID PANEL, NON FASTING CHOLESTEROL IN HDL [MASS/VOLUM E] IN SERUM OR PLASMA 46 mg/dL 40 - 60 12/26 Specimen Type: SERUM No comment entered. Ordering Provider: MANOLO DIAZ Report Released Date/Time: Dec 27, 2023 03:31 PM Reporting Lab: [facility] [place] [facility] [address] [facility] [address] Performing Lab: [facility] [place] [facility] [address] [facility] [address] [place] [facility] [place] [facility] LIVER FUNCTION PROTEIN [MASS/VOLUM E] IN SERUM OR PLASMA 6.4 g/dL 6.0 - 8.3 12/26 Specimen Type: SERUM No comment entered. Ordering Provider: MANOLO DIAZ Report Released Date/Time: Dec 27, 2023 03:31 PM Reporting Lab: [facility] [place] [facility] [address] [facility] [address] Performing Lab: [facility] [place] [facility] [address] [facility] [address] [facility] [place] [facility] LIVER FUNCTION ALBUMIN [MASS/VOLUM E] IN SERUM OR PLASMA 3.8 g/dL 3.5 - 5.0 12/26 Specimen Type: SERUM No comment entered. Ordering Provider: MANOLO DIAZ Report Released Date/Time: Dec 27, 2023 03:31 PM Reporting Lab: [facility] [place] [facility] [address] [facility] [address] Performing Lab: [facility] [place] [facility] [address] [facility] [address] [facility] [place] [facility] LIVER FUNCTION ALKALINE PHOSPHATASE [ENZYMATIC ACTIVITY/VO LUME] IN SERUM OR PLASMA 56 U/L 40 - 150 12/26 Specimen Type: SERUM No comment entered. Ordering Provider: MANOLO DIAZ Report Released Date/Time: Dec 27, 2023 03:31 PM Reporting Lab: [facility] [place] [facility] [address] [facility] [address] Performing Lab: [facility] [place] [facility] [address] [facility] [address] [place] [facility] [place] [facility] LIVER FUNCTION ASPARTATE AMINOTRANSF ERASE [ENZYMATIC ACTIVITY/VO LUME] IN SERUM OR PLASMA 18 U/L 5 - 34 12/26 Specimen Type: SERUM No comment entered. Ordering Provider: MANOLO DIAZ Report Released Date/Time: Dec 27, 2023 03:31 PM Reporting Lab: [facility] [place] [address] [address] Performing Lab: [facility] [place] [address] [address] [place] [facility] [place] [facility] LIVER FUNCTION ALANINE AMINOTRANSF ERASE [ENZYMATIC ACTIVITY/VO LUME] IN SERUM OR PLASMA 15 U/L 12/26 Specimen Type: SERUM No comment entered. Ordering Provider: MANOLO DIAZ Report Released Date/Time: Dec 27, 2023 03:31 PM Reporting Lab: [facility] [place] [address] [address] Performing Lab: [facility] [place] [address] [address] [facility] [place] [facility] LIVER FUNCTION BILIRUBIN.T OTAL [MASS/VOLUM E] IN SERUM OR PLASMA 0.6 mg/dL 0.2 - 1.2 12/26 Specimen Type: SERUM No comment entered. Ordering Provider: MANOLO DIAZ Report Released Date/Time: Dec 27, 2023 03:31 PM Reporting Lab: [place] [facility] [place] [address] [address] Performing Lab: [facility] [place] [facility] [address] [facility] [address] [facility] THYROID T4 FREE(FT4) THYROXINE (T4) FREE [MASS/VOLUM E] IN SERUM OR PLASMA 1.43 ng/dL 0.6 - 1.6 05/25 Specimen Type: SERUM No comment entered. Ordering Provider: MANOLO DIAZ Report Released Date/Time: May 14, 2022 02:20 PM Reporting Lab: [facility] [address] [facility] [address] Performing Lab: [facility] [address] [facility] [address] [facility] BASIC METABOLIC PANEL (non-fast ing) UREA NITROGEN [MASS/VOLUM E] IN SERUM OR PLASMA 12 mg/dL 7 - 25 05/25 Specimen Type: SERUM No comment entered. Ordering Provider: MANOLO DIAZ Report Released Date/Time: May 14, 2022 02:20 PM Reporting Lab: [facility] [address] [facility] [address] Performing Lab: [facility] [address] [facility] [address] [facility] BASIC METABOLIC PANEL (non-fast ing) GLUCOSE [MASS/VOLUM E] IN SERUM OR PLASMA 99 mg/dL 65 - 100 05/25 Specimen Type: SERUM No comment entered. Ordering Provider: MANOLO DIAZ Report Released Date/Time: May 14, 2022 02:20 PM Reporting Lab: [facility] [address] [facility] [address] Performing Lab: [facility] [address] [facility] [address] [facility] BASIC METABOLIC PANEL (non-fast ing) SODIUM [MOLES/VOLU ME] IN SERUM OR PLASMA 140 mmol/L 135 - 145 05/25 Specimen Type: SERUM No comment entered. Ordering Provider: MANOLO DIAZ Report Released Date/Time: May 14, 2022 02:20 PM Reporting Lab: [facility] [place] [place] [facility] [address] [facility] [address] Performing Lab: [place] [facility] [address] [facility] [address] [facility] [place] [facility] BASIC METABOLIC PANEL (non-fast ing) POTASSIUM [MOLES/VOLU ME] IN SERUM OR PLASMA 4.2 mmol/L 3.5 - 5.0 05/25 Specimen Type: SERUM No comment entered. Ordering Provider: MANOLO DIAZ Report Released Date/Time: May 14, 2022 02:20 PM Reporting Lab: [facility] [address] [facility] [id number] Performing Lab: [place] [facility] [address] [facility] [id number] [facility] BASIC METABOLIC PANEL (non-fast ing) CHLORIDE [MOLES/VOLU ME] IN SERUM OR PLASMA 106 mmol/L 100 - 110 05/25 Specimen Type: SERUM No comment entered. Ordering Provider: MANOLO DIAZ Report Released Date/Time: May 14, 2022 02:20 PM Reporting Lab: [facility] [place] [facility] [address] [facility] [phone] Performing Lab: [place] [facility] [facility] [address] [facility] [phone] [facility] BASIC METABOLIC PANEL (non-fast ing) CARBON DIOXIDE, TOTAL [MOLES/VOLU ME] IN SERUM OR PLASMA 23 meq/L 20 - 30 05/25 Specimen Type: SERUM No comment entered. Ordering Provider: MANOLO DIAZ Report Released Date/Time: May 14, 2022 02:20 PM Reporting Lab: [place] [facility] [facility] [address] [facility] [phone] Performing Lab: [place] [facility] [facility] [address] [facility] [phone] [facility] BASIC METABOLIC PANEL (non-fast ing) CREATININE [MASS/VOLUM E] IN SERUM OR PLASMA 1.03 mg/dL 0.50 - 1.40 05/25 Specimen Type: SERUM No comment entered. Ordering Provider: MANOLO DIAZ Report Released Date/Time: May 14, 2022 02:20 PM Reporting Lab: [facility] [address]USE[address] [address] Performing Lab: [facility] [address] [facility] BASIC METABOLIC PANEL (non-fast ing) GLOMERULAR FILTRATION RATE/1.73 SQ M.PREDICTED [VOLUME RATE/AREA] IN SERUM, PLASMA OR BLOOD BY CREATININE- BASED FORMULA (CKD-EPI) 75 mL/min 60 05/25 Specimen Type: SERUM No comment entered. Ordering Provider: MANOLO DIAZ Report Released Date/Time: May 14, 2022 02:20 PM Reporting Lab: [facility] [address] Performing Lab: [facility] [address] [facility] LIPID PANEL FASTING CHOLESTEROL [MASS/VOLUM E] IN SERUM OR PLASMA 128 mg/dL 7 - 199 05/25 Specimen Type: SERUM No comment entered. Ordering Provider: MANOLO DIAZ Report Released Date/Time: May 14, 2022 02:20 PM Reporting Lab: [facility] [address] [address] Performing Lab: [facility] [address] [facility] LIPID PANEL FASTING TRIGLYCERID E [MASS/VOLUM E] IN SERUM OR PLASMA 72 mg/dL 0 - 150 05/25 Specimen Type: SERUM No comment entered. Ordering Provider: MANOLO DIAZ Report Released Date/Time: May 14, 2022 02:20 PM Reporting Lab: [facility] [address] Performing Lab: [place] [facility] [place] [facility] [address] [facility] [address] [place] [facility] [facility] LIPID PANEL FASTING CHOLESTEROL IN LDL [MASS/VOLUM E] IN SERUM OR PLASMA BY CALCULATION 71 mg/dL 0 - 129 05/25 Specimen Type: SERUM No comment entered. Ordering Provider: MANOLO DIAZ Report Released Date/Time: May 14, 2022 02:20 PM Reporting Lab: [facility] [place] [facility] [address] [facility] [address] Performing Lab: [place] [facility] [place] [facility] [address] [facility] [address] [facility] [facility] LIPID PANEL FASTING CHOLESTEROL .TOTAL/CHOL ESTEROL IN HDL [MASS RATIO] IN SERUM OR PLASMA 3.0 05/25 Specimen Type: SERUM No comment entered. Ordering Provider: MANOLO DIAZ Report Released Date/Time: May 14, 2022 02:20 PM Reporting Lab: [place] [facility] [place] [facility] [address] [facility] [address] Performing Lab: [place] [facility] [facility] [address] [facility] [address] [facility] LIPID PANEL FASTING CHOLESTEROL IN HDL [MASS/VOLUM E] IN SERUM OR PLASMA 43 mg/dL 40 - 60 05/25 Specimen Type: SERUM No comment entered. Ordering Provider: MANOLO DIAZ Report Released Date/Time: May 14, 2022 02:20 PM Reporting Lab: [place] [facility] [place] [facility] [address] [facility] [address] Performing Lab: [place] [facility] [address] [address] [facility] [place] [facility] TSH THYROTROPIN [UNITS/VOLU ME] IN SERUM OR PLASMA < 0.06u[ IU]/mL 0.35 - 5.00 05/25 Specimen Type: SERUM No comment entered. Ordering Provider: MANOLO DIAZ Report Released Date/Time: May 14, 2022 02:20 PM Reporting Lab: [facility] [place] [facility] [address] [facility] [address] Performing Lab: [facility] [place] [facility] [address] [facility] [address] [facility] Vital [...] [facility] En[facility] [id number] 11/19 [facility] En[facility] [id number] 12/24 [facility] Encounter [id number] 12/25 [facility] OFFICE O/P EST MOD 30-39 MIN [id number] Diagnos is: ICD-10- CM D48.5 Neoplas m of uncerta in behavio r of skin GABRIELLA ALVARADO 01/01 [facility] En[facility] [id number] MARIAMA TEE MD 01/07 [facility] Out[facility] Encounter [id number] Diagnos is: ICD-10- CM Z02.89 Encount er for other adminis trative examina tions ASHLEY MUELLER 01/24 [facility] Outpatient Encounter [id number] Diagnos is: ICD-10- CM Z02.89 Encount er for other adminis trative examina tions ASHLEY MUELLER 03/14 [facility] COMPRE OPH EXAM EST PT 1/> [id number] Diagnos is: ICD-10- CM H40.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 DOMINIC ALBRECHT E 03/25 [facility] FIT SPECTACLES MULTIFOCAL [id number] Diagnos is: ICD-10- CM Z46.0 Encount er for fit/adj st of spectac les and contact lenses DOMINIC ALBRECHT E 03/26 [facility] Out[facility] Encounter [id number] TAYLOR PORRAS ISTOPHER E 05/13 [facility] Encounter [id number] 05/14 [facility] Encounter [id number] 05/15 [facility] Encounter [id number] 07/01 [facility] Encounter [id number] Diagnos is: ICD-10- CM Z02.89 Encount er for other adminis trative examina ASHLEY Barnes 07/03 [facility] Encounter [id number] 07/10 [facility] Encounter [id number] 10/27 [facility] Out[facility] Encounter [id number] 11/04 [facility] Out[facility] Encounter [id number] 11/28 [facility] Encounter [id number] 12/22 [facility] Out[facility] Encounter [id number] 12/25 [facility] OFFICE O/P EST MOD 30 MIN [id number] Diagnos is: ICD-10- CM Z86.018 Persona l history of other benign neoplas GABRIELLA Piper 12/25 [facility] OFFICE O/P EST MOD 30 MIN [id number] Diagnos is: ICD-10- CM I48.91 Unspeci fied atrial fibrill ation Terri DIAZ 12/26 [facility] OFF/OP EST JUNE X REQ PHY/QHP [id number] 1. Diagnos is: ICD-10- CM H61.23 Impacte d quincy forrester al NIRMAL TOM 01/09 [facility] Out[facility] Encounter [id number] 1.01/09 [facility] Out[facility] Encounter [id number] 02/19 [facility] Out[facility] Encounter [id number]/24 [facility] EXTENDED VISUAL FIELD XM [id number] Diagnos is: ICD-10- CM H40.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 BORASKI,AN ROXANN E 03/24 [facility] [place]TRZ[place] [id number] Diagnos is: ICD-10- CM H40.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 BORASKI,AN ROXANN E 03/24 [facility] COMPRE OPH EXAM EST PT 1/ [id number] Diagnos is: ICD-10- CM H04.123 Dry eye syndrom e of bilater al lacrima l glands BORASKI,AN ROXANN E 03/24 [facility] FIT SPECTACLES MULTIFOCAL [id number] Diagnos is: ICD-10- CM Z46.0 Encount er for fit/adj st of spectac les and contact lenses DOMINIC ALBRECHT E 03/25 [facility] [place] [facility] [place] [facility] Outpatient Encounter [id number] 04/02 [facility] [place] [facility] Social History Combined list of available smoking, tobacco, and other social history from Department of Defense and Veterans Affairs facilities. Social History Type Response Date Comment Sourc e Tobacco smoking status WYIS VA-TOBACCO FORMER USER 12/27/2023 [facility] History of tobacco use VA-TOBACCO QUIT 15 YRS OR MORE 12/27/2023 [facility] [place] [facility] History of tobacco use VA-TOBACCO NEVER USED 05/25/2022 [facility] [place] History of tobacco use TN-TOBACCO FORMER USER 05/19/2021 [facility] [place] [facility] History of tobacco use TN-TOBACCO FORMER USER 03/24/2020 [facility] [place] [facility] History of tobacco use QUIT TOBACCO USE > 7 YEARS AGO 09/17/2017 [facility] [place] [facility]
--- OUTSIDE RECORDS SUMMARY | 2024-05-12 13:39 | XMS_ITS | Encounter Summary ---
Author Organization [facility] Address [address] [place] [address] Care Team Providers Care Maintenance Construction Helper Name Role Phone Ricky West MD Primary Care Provider Unavail Aaliyah Yanez MD Primary Care Provider Clarice Mac, Pcp Primary Care Provider Manuel shore Encounter Details Date Type Department Care Team Description 07/22/2013 [facility]que Brusher Report Medical Records [address] [place] [address] Antonio Jarvis Social History Tobacco Use Types [...] on filedocumented in this encounter Care Teams Maintenance Construction Helper Relationship Specialty Start Date End Date Ricky West MD PCP - General Internal Medicine 01/02/13 01/03/15 Aaliyah Smith MD PCP - General Internal Medicine 01/04/15 09/22/20 [facility], Pcp PCP - General Internal Medicine 09/23/20 documented as of this encounter
--- OUTSIDE RECORDS SUMMARY | 2024-05-12 13:39 | XMS_ITS | Encounter Summary ---
Author Organization [facility] Address [address] [place] [address] Care Team Providers Care Lay Out Worker Name Role Phone Pcp, No Primary Care Provider Unavailabl e Unknown Primary Care Provider [phone] Aaliyah Carrillo MD Primary Care Provider [phone] Encounter Details Date Type Department Care Team (Late st Contact Info) Description 12/19/2020 Scanned Document [facility] [place] at [address] [phone] Provider, External, [address] [place] [id number] Social History Tobacco Use Types Packs/Day Years [...] on filedocumented in this encounter Care Teams Lay Out Worker Relationship Specialty Start Date End Date Pcp, No PCP - General General Medicine 12/19/20 04/14/23 Unknown Unknow Provider Address PCP - General 04/16/23 06/11/23 Aaliyah Carrillo MD [address] [place] [phone] PCP - General Internal Medicine 06/12/23 Aaliyah Carrillo [address] [place] [address], [address] [address] Primary Care Provider Internal Medicine 04/15/23 Aaliyah Carrillo [address] [place] [address], [address] [address] Primary Care Provider Internal Medicine 04/15/23 Benji Hardwick [address] [place] [address]?? [place] [address] Physician Pulmonary Medicine 04/15/23 documented as of this encounter
--- OUTSIDE RECORDS SUMMARY | 2024-05-12 13:39 | XMS_ITS | Encounter Summary ---
Author Organization [facility] Address [address] [place] [address] 7 [place] [address] Care Team Providers Care American Studies Professor Name Role Phone Unavailable Primary Care Provider Unavailabl e Encounter Details Date Type Department Care Team (Latest Contact Info) Description 03/18/2018 Abstract [facility] CONVERSIONS Dental, Provider, DDS Social History Tobacco [...]
--- OUTSIDE RECORDS SUMMARY | 2024-05-12 13:39 | XMS_ITS ---
Author Name [facility] (MD) Organization [facility] Address [address] [place] [address] Care Team Providers Care Flarer Name Role Phone TERRIE DIAZ Primary Care [...] Cardenas's Name Patient's Relationship to Policy Cardenas [facility] MEDICARE SUPPLEMEN VEL MEDEX BRONZ E Mar 21, 2011 [id number] [phone] Katlyn BELLO PATIENT [facility] MEDICARE SUPPLEMEN V[employer] MED[employer] BRONZ E Mar 21, 2011 [id number] Katlyn BELLO PATIENT MEDICARE (WN) MEDICARE (M) PART A Dec 19, 2008 PART A [id number] Katlyn BELLO PATIENT MEDICARE ([facility]) MEDICARE (M) PART B Dec 19, 2008 PART B [id number] Katlyn BELLO PATIENT Selected Encounter This section includes the information on record at MD for the Encounter. Date/Time Encounter Type Encounter Description Reason Provider Source Mar 24, 2024 10:00 AM COMPRE OPH EXAM EST PT 1/> OPTOMETRY ICD-10-CM H04.123 Dry eye syndrome of bilateral lacrimal glands SABINA ALBRECHT Eddy Encounter Template Text not used by MD Assessments - Encounter Diagnoses This section includes the primary and secondary diagnoses documented for the Encounter. Date/Time Primary/Secondary Diagnosis Diagnosis Name Provider Source Apr 30, 2024 12:53 PM PRIMARY Dry eye syndrome of bilateral lacrimal glands SABINA ALBRECHT [place] [facility] [place] [facility] Apr 30, 2024 12:53 PM SECONDARY Open angle with borderline findings, low risk, bilateral SABINA ALBRECHT MD [facility] [place] [facility] Social History: Smoking Status (Most current) and Tobacco Use (All prior to encounter date) This section includes the most current, and the historical, smoking and tobacco- related health factors from the MD facility where the Encounter took place. Current Smoking Status This section includes the most current smoking, or tobacco-related health factor, from the MD facility where the Encounter took place. Date/Time Current Smoking Status Comment Edwin ity Dec 27, 2023 03:00 PM VA-TOBACCO FORMER USER MD [facility] [place] [facility] Tobacco Use History This section includes a history of the smoking, or tobacco-related health factors, that were collected on or before the date of the Encounter. The data comes from the MD facility where the Encounter took place. Date/Time Smoking Status/Tobacco Use Comment F acdarian Dec 27, 2023 03:00 PM VA-TOBACCO QUIT 15 YRS OR MORE [place] [facility] [place] [facility] May 25, 2022 01:30 PM VA-TOBACCO NEVER USED MD [facility] [place] [facility] May 19, 2021 02:00 PM VA-TOBACCO FORMER USER MD [facility] [place] [facility] May 19, 2021 02:00 PM VA-TOBACCO QUIT 15 YRS OR MORE MD [facility] [place] [facility] Mar 24, 2020 08:36 AM VA-TOBACCO FORMER USER MD [facility] [place] [facility] Mar 24, 2020 08:36 AM VA-TOBACCO QUIT 15 YRS OR MORE [place] [facility] [place] [facility] Sep 17, 2017 02:25 PM QUIT TOBACCO USE > 7 [facility]GO [facility] En[facility] Notes: All associated encounter notes [...] glaucoma imaging. /renetta/ SABINA ALBRECHT OD STAFF BOOM CONVEYOR OPERATOR Signed: 03/24/2024 11:13 SABINA ALBRECHT [facility] Mar 24, 2024 07:12 AM OPTOMETRY NOTE: LOCAL TITLE: OPTOMETRY NOTE STANDARD TITLE: OPTOMETRY NOTE DATE OF NOTE: MAR 24, 2024@07:12 ENTRY DATE: MAR 24, 2024@07:12:45 AUTHOR: SABINA BANKS EXP COSIGNER: SABINA ALBRECHT URGENCY: STATUS: COMPLETED Active problems - Computerized Problem List is the source for the followin. AF - Atrial Fibrillation ([facility] [id number]) 2. Exposure to potentially hazardous substance 3. COPD - Chronic Obstructive Pulmonary Disease ([facility] [id number]) 4. Hyperlipidemia 5. Papillary thyroid carcinoma 6. [...] ([place]ORO) INHL,ORAL BY MOUTH ACTIVE 6) Non-VA PRWADOANQWSO10.5/VILANTEROL 25MCG 30D INH 1 INHALATION ACTIVE BY [...] cyst, November [address] Hayes at [place] (-) TBI FOHx: (-) Glaucoma/ARMD/Blindness VITALS (most [...] After discussion and answering all 's questions, [place] demonstrated and verbalized understanding of diagnosis and [...] this [facility] (local) and dispensed from another MD or [facility] facility (remote) as well as inpatient orders [...] SABINA BANKS OPTOMETRY STUDENT Signed: 03/24/2024 11:57 /chayo ALBRECHT STAFF BOOM CONVEYOR OPERATOR Cosigned: 03/24/2024 11:59 SABINA BANKS MD [facility]
--- OUTSIDE RECORDS SUMMARY | 2024-05-12 13:39 | XMS_ITS | Encounter Summary ---
Author Organization [facility] Address [address] [place] [address] Care Team Providers Care Gas Appliance Servicer Helper Name Role Phone Aaliyah Smith MD Primary Care Provider Clarice webster [facility], Pcp Primary Care Provider Manuel shore Encounter Details Date Type Department Care Team Description 12/20/2015 Zika Virus Medical Records [address] [place] [id number] Abstract, Provider Social History Tobacco Use Types [...] on filedocumented in this encounter Care Teams Gas Appliance Servicer Helper Relationship Specialty Start Date End Date Aaliyah Smith MD PCP - General Internal Medicine 01/04/15 09/22/20 B[facility], Pcp PCP - General Internal Medicine 09/23/20 documented as of this encounter
--- OUTSIDE RECORDS SUMMARY | 2024-05-12 13:39 | XMS_ITS | Encounter Summary ---
Author Organization [facility] Address [address] [place] [address] Care Team Providers Care Manager Of Corporate Communications Name Role Phone Aaliyah Smith MD Primary Care Provider Clarice webster [facility], Pcp Primary Care Provider Manuel shore Encounter Details Date Type Department Care Team Description 10/11/2015 Front Line Leader Report Medical Records [address] [place] [address] Antonio Jarvis Social History Tobacco Use Types [...] filedocumented in this encounter Care Teams Manager Of Corporate Communications Relationship Specialty Start Date End Date Aaliyah Smith MD PCP - General Internal Medicine 01/04/15 09/22/20 [facility], Pcp PCP - General Internal Medicine 09/23/20 documented as of this encounter
--- OUTSIDE RECORDS SUMMARY | 2024-05-12 13:39 | XMS_ITS ---
Author Name [facility] [place] Organization [facility] [place] Address [address] [place] [address] Care Team Providers Care Ammonia Operator Name Role Phone RUBA MELCHOR Primary Care Provider Unavaila [facility] Insurance Providers: All historical and current [...] Cardenas's Name Patient's Relationship to Policy Cardenas [facility] MEDICARE SUPPLEMEN VEL MEDEX BRONZ E Mar 21, 2011 [id number] [phone] Katlyn BELLO PATIENT [facility] MEDICARE SUPPLEMEN VEL MEDEX BRONZ E Mar 21, 2011 [id number] Katlyn BELLO PATIENT MEDICARE (WNR) MEDICARE (M) PART A Dec 19, 2008 PART A [id number] Katlyn BELLO PATIENT MEDICARE (WNR) MEDICARE (M) PART B Dec 19, 2008 PART B [id number] [phone] Katlyn BELLO PATIENT Selected Encounter This section includes the information on record at [place] for the Encounter. Date/Time Encounter Type Encounter Description Reason Provider Source Dec 27, 2023 03:00 PM OFFICE O/P EST MOD 30 MIN PRIMARY CARE/MEDICINE ICD-10-CM I48.91 Unspecified atrial fibrillation SOLANGE MELCHOR IHE Encounter Template Text not used by [place] Assessments - Encounter Diagnoses This section includes the primary and secondary diagnoses documented for the Encounter. Date/Time Primary/Secondary Diagnosis Diagnosis Name Provider Source Jan 09, 2024 04:55 PM PRIMARY Unspecified atrial fibrillation [facility] Jan 09, 2024 04:55 PM SECONDARY Chronic obstructive pulmonary disease, unspecified SOLANGE MELCHORM Debbie [facility] Plan of Treatment: Future Appointments (+ 6 months) and Future Tests (+/- 45 days) The Plan of Treatment section includes future care activities for the patient from all [place] [facility]. This section includes future appointments and future orders which are active, pending or scheduled. Future Appointments This section includes appointments that were scheduled to occur 6 months from the date of the Encounter, up to a maximum of 20 appointments. The data comes from all [place] treatment facilities. Appointment Date/Time Appointment Type Appointme nt Facility Name Jan 10, 2024 01:00 PM AMBULATORY - MEDICINE [facility] NTR [facility] Feb 20, 2024 04:40 PM AMBULATORY MEDICINE [facility] Mar 24, 2024 09:30 AM AMBULATORY MEDICINE [facility] Mar 24, 2024 09:45 AM AMBULATORY MEDICINE [facility]L [facility]N [facility] Mar 24, 2024 10:00 AM AMBULATORY MEDICINE [facility] Lab Results: +/- 30 days of the encounter This section includes the Chemistry and Hematology Lab Results on record with [place] for the patient. Radiology Reports and Pathology Reports are provided separately, in subsequent sections. Lab Results This section contains the Chemistry/Hematology Results that were resulted 30 days before or 30 daysafter the date of the Encounter. Date/Time Source Result Type Result - Unit Interpretation Reference Range Comment Dec 27, 2023 03:37 PM [facility] TSH Specimen Type: SERUM No comment entered. Ordering Provider: KISHA MELCHOR AM Report Released Date/Time: Dec 27, 2023 03:31 PM Reporting Lab: [address] [address] Performing Lab: [place] [id number] TSH 0.08 u[IU]/mL L 0.35-5.00 Dec 27, 2023 03:37 PM [facility] HEMOGLOBIN A1C PANEL Specimen Type: BLOOD [...] Dec 27, 2023 03:31 PM Reporting Lab: [address] [address] Performing Lab: [address] HEMOGLOBIN A1C 5.2 4.0-5.6 Dec 27, 2023 03:37 PM [facility] CBC Specimen Type: BLOOD No comment entered. Ordering Provider: KISHA MELCHOR AM Report Released Date/Time: Dec 27, 2023 03:31 PM Reporting Lab: [address] [address] Performing Lab: [address] [address] WBC 7.94 10*3/uL 4.50-11.00 RBC 4.90 10*6/uL 4.23-5.66 HGB 14.7 g/dL 12.8-17 HCT 43.5 39.2-50.4 MCV 88.8 fL 82-99 MCHC 33.8 g/dL 30.8-35.1 PLT 263 10*3/uL 140-360 RDW-CV 13.2 12.0-16.0 MCH 30.0 pg 26.2-32.6 Dec 27, 2023 03:37 PM [facility] BASIC METABOLIC PANEL (non-fasting) Specimen Type: SERUM No comment entered. Ordering Provider: KISHA MELCHOR AM Report Released Date/Time: Dec 27, 2023 03:31 PM Reporting Lab: [facility] [address] [facility] [address] Performing Lab: [address] [address] UREA NITROGEN 17 mg/dL 7-25 GLUCOSE 89 mg/dL 65-100 SODIUM 140 mmol/L 135-145 POTASSIUM 4.0 mmol/L 3.5-5.0 CHLORIDE 107 mmol/L 100-110 CO2 23 meq/L 20-30 CREATININE, Serum 0.96 mg/dL 0.50-1.40 eGFR(CKD-EPI 2020) 81 mL/min >60 Dec 27, 2023 03:37 PM [facility] LIVER FUNCTION Specimen Type: SERUM No comment entered. Ordering Provider: KISHA MELCHOR AM Report Released Date/Time: Dec 27, 2023 03:31 PM Reporting Lab: [facility] [address] [facility] [address] Performing Lab: [address] [address] PROTEIN,TOTAL 6.4 g/dL 6.0-8.3 ALBUMIN 3.8 g/dL 3.5-5.0 ALKALINE PHOSPHATASE 56 U/L 40-150 AST 18 U/L 5-34 ALT 15 U/L BILIRUBIN, TOTAL 0.6 mg/dL 0.2-1.2 Dec 27, 2023 03:37 PM [facility] LIPID PANEL, NON FASTING Specimen Type: SERUM No comment entered. Ordering Provider: KISHA MELCHOR AM Report Released Date/Time: Dec 27, 2023 03:31 PM Reporting Lab: [facility] [address] [facility] [address] Performing Lab: [address] [address] CHOLESTEROL 153 mg/dL TRIGLYCERIDE 105 mg/dL 0-150 [...] 180/92 20 98 2 73 232 31 [place] [facility] Social History: Smoking Status (Most current) and Tobacco Use (All prior to encounter date) This section includes the most current, and the historical, smoking and tobacco- related health factors from the [place] facility where the Encounter took place. Current Smoking Status This section includes the most current smoking, or tobacco-related health factor, from the [place] facility where the Encounter took place. Date/Time Current Smoking Status Comment Facil ity Dec 27, 2023 03:00 PM VA-TOBACCO FORMER USER [place] [facility] Tobacco Use History This section includes a history of the smoking, or tobacco-related health factors, that were collected on or before the date of the Encounter. The data comes from the [place] facility where the Encounter took place. Date/Time Smoking Status/Tobacco Use Comment F acility Dec 27, 2023 03:00 PM VA-TOBACCO QUIT 15 YRS OR MORE [place] [facility] May 25, 2022 01:30 PM VA-TOBACCO NEVER USED [place] [facility] May 19, 2021 02:00 PM VA-TOBACCO FORMER USER [place] [facility] May 19, 2021 02:00 PM VA-TOBACCO QUIT 15 YRS OR MORE [place] [facility] [place] [facility] Mar 24, 2020 08:36 AM VA-TOBACCO FORMER USER [place] [facility] Mar 24, 2020 08:36 AM VA-TOBACCO QUIT 15 YRS OR MORE [place] [facility] [facility] Sep 17, 2017 02:25 PM QUIT TOBACCO USE > 7 YEARS AGO [place] [facility] Encounter Notes: All associated encounter notes This [...] complaint: Patient is a 78 year old [place]. HPI: Pleasant male [place] here to follow up. Comes yearly. Follows with: PCP - Dr Locke endocrine - Dr Morel pulm - Dr Hardwick, [facility] [place] Allergies: Patient has answered NKA The following [...] (ANORO) INHL,ORAL BY ACTIVE MOUTH 6) Non-VA GCASPIXGDOCH60.5/VILANTERO L25MCG 30D INH 1 ACTIVE INHALATION BY MOUTH ONCE DAILY 7 Total Medications Review of Systems: Constitutional: (-)for Fevers, chills, weakness, nights sweats On examination: 98.1 F [36.7 C] (12/27/2023 14:56)180/92 (12/27/2023 14:56)68 (12/27/2023 14:56)20 (12/27/2023 14:56)2 (12/27/2023 14:56)BMI: 30.7232 lb [105.23 kg] (12/27/2023 14:56) [place] is alert and oriented X3 Cardiovasc: 2plus [...] for the followin. AF - Atrial Fibrillation ([facility] [id number]) - rate controlled 2. COPD - Chronic [...] or non-VA provider. /renetta/ Ruba Melchor DNP, HIGH MAN-BC, CNL Primary Care Nurse Practitioner Signed: 12/27/2023 15:40 RUBA MELCHOR [place] [facility] [place] [facility] Dec 27, 2023 03:03 PM PREVENTIVE MEDICINE [...] of his/her rights. Suicide Screen: C-SSRS Screening Marshall-Suicide Severity Rating Scale (C-SSRS Screener) 1. Over [...] Not worried about housing near future The [place] reports the following: Within the past 12 [...] full rights to use it throughout the [place] system. PRIMARY SCREEN RESULT: The Primary Screen is NEGATIVE. The individual answered never to all forms of IPV above (i.e., answered never to all 5 items) The individual accepts education and/or resources: No EDUCATION: Other: not interested at this time /renetta/ Sy Sarabia Health Manager Business Continuity MANAGER [place],PRIMARY CARE Signed: 12/27/2023 15:07 SY SARABIA [place] [facility]
--- OUTSIDE RECORDS SUMMARY | 2024-05-12 13:39 | XMS_ITS | Encounter Summary ---
Author Organization [facility] Address [address] [place] [address] Care Team Providers Care Special Crimes Investigator Name Role Phone Aaliyah Smith MD Primary Care Provider Clarice webster [facility], [facility], Pcp Primary Care Provider Manuel shore Encounter Details Date Type Department Care Team Description 05/31/2017 Bed And Breakfast Cook Report Medical Records [address] [place] [address] Tanisha Rajan MD Social History Tobacco Use [...] on filedocumented in this encounter Care Teams Special Crimes Investigator Relationship Specialty Start Date End Date Aaliyah Smith MD PCP - General Internal Medicine 01/04/15 09/22/20 Bubba, Pcp PCP - General Internal Medicine 09/23/20 documented as of this encounter
--- OUTSIDE RECORDS SUMMARY | 2024-05-12 13:39 | XMS_ITS | Encounter Summary ---
Author Organization [facility] Address [address] [place] [address] Care Team Providers Care Hand Spring Former Name Role Phone Pcp, No Primary Care Provider Unavailabl e Unknown Primary Care Provider [phone] Aaliyah Carrillo MD Primary Care Provider [phone] Encounter Details Date Type Department Care Team (Late st Contact Info) Description 12/27/2020 Scanned Document [facility] Pulmonary and Critical Care[address] [address] Pulmonary, Scan Social History Tobacco [...] on filedocumented in this encounter Care Teams Hand Spring Former Relationship Specialty Start Date End Date Pcp, No PCP - General General Medicine 12/19/20 04/14/23 Unknown Unknow Provider Address PCP - General 04/16/23 06/11/23 Aaliyah Carrillo MD [address] [place] [address] PCP - General Internal Medicine 06/12/23 Aaliyah Carrillo [address] [place] [address], [facility] [address], [place] [address] Primary Care Provider Internal Medicine 04/15/23 Aaliyah Carrillo [address] [place] [address], [facility] [address], [place] [address] Primary Care Provider Internal Medicine 04/15/23 Benji Hardwick [address] [place] [address]?? [place] [address] Physician Pulmonary Medicine 04/15/23 documented as of this encounter
--- OUTSIDE RECORDS SUMMARY | 2024-05-12 13:39 | XMS_ITS | Encounter Summary ---
Author Name [facility] [place] Organization [facility] [place] Address [address] [place] [address] Care Team Providers Care Fiberglass Auto Body Repairer Name Role Phone TERRIE DIAZ Primary [...] Cardenas [place] SUPPLEMEN VEL MEDEX [facility] E Mar 21, 2011 [id number] Katlyn BELLO PATIENT [place] MED[place] SUPPLEMEN VEL MEDEX [facility] E Mar 21, 2011 [id number] [phone] Katlyn BELLO PATIENT MEDICARE (WN) MEDICARE (M) PART A Dec 19, 2008 PART A [id number] Katlyn BELLO PATIENT MEDICARE (WN) MEDICARE (M) PART B Dec 19, 2008 PART B [id number] [phone] Katlyn BELLO PATIENT Selected Encounter This section includes the information on record at [place] for the Encounter. Date/Time Encounter Type Encounter Description Reason Provider Source Jan 10, 2024 01:00 PM OFF/OP EST JUNE X REQ PHY/QHP PRIMARY CARE/MEDICINE ICD-10-CM H61.23 Impacted cerumen, bilateral ZANVETTOR,YUNI SSA IHE Encounter Template Text not used by [place] Assessments - Encounter Diagnoses This section includes the primary and secondary diagnoses documented for the Encounter. Date/Time Primary/Secondary Diagnosis Diagnosis Name Provider Source Jan 31, 2024 11:31 AM PRIMARY Impacted cerumen, bilateral ZANVETTOR,YUNI [facility] Plan of Treatment: Future Appointments (+ 6 months) and Future Tests (+/- 45 days) The Plan of Treatment section includes future care activities for the patient from all [place] [facility]. This section includes future appointments and future orders which are active, pending or scheduled. Future Appointments This section includes appointments that were scheduled to occur 6 months from the date of the Encounter, up to a maximum of 20 appointments. The data comes from all [place] treatment facilities. Appointment Date/Time Appointment Type Appointme nt Facility Name Feb 20, 2024 04:40 PM AMBULATORY - MEDICINE [facility] [place] [place] [facility] Mar 24, 2024 09:30 AM AMBULATORY - MEDICINE [facility] [place] [facility] Mar 24, 2024 09:45 AM AMBULATORY MEDICINE [facility] [place] [facility] Mar 24, 2024 10:00 AM AMBULAT[facility] Lab Results: +/- 30 days of the encounter This section includes the Chemistry and Hematology Lab Results on record with [place] for the patient. Radiology Reports and Pathology Reports are provided separately, in subsequent sections. Lab Results This section contains the Chemistry/Hematology Results that were resulted 30 days before or 30 daysafter the date of the Encounter. Date/Time Source Result Type Result - Unit Interpretation Reference Range Comment Dec 27, 2023 03:37 PM [facility] TSH Specimen Type: SERUM No comment entered. Ordering Provider: KISHA DIAZ AM Report Released Date/Time: Dec 27, 2023 03:31 PM Reporting Lab: [address] [address] Performing Lab: [address] [address] TSH 0.08 u[IU]/mL L 0.35-5.00 Dec 27, 2023 03:37 PM [facility] HEMOGLOBIN A1C PANEL Specimen Type: BLOOD [...] Dec 27, 2023 03:31 PM Reporting Lab: [address] [address] Performing Lab: [place] [address] HEMOGLOBIN A1C 5.2 4.0-5.6 Dec 27, 2023 03:37 PM [facility] CBC Specimen Type: BLOOD No comment entered. Ordering Provider: KISHA DIAZ AM Report Released Date/Time: Dec 27, 2023 03:31 PM Reporting Lab: [address] Performing Lab: [address] WBC 7.94 10*3/uL 4.50-11.00 RBC 4.90 10*6/uL 4.23-5.66 HGB 14.7 g/dL 12.8-17 HCT 43.5 39.2-50.4 MCV 88.8 fL 82-99 MCHC 33.8 g/dL 30.8-35.1 PLT 263 10*3/uL 140-360 RDW-CV 13.2 12.0-16.0 MCH 30.0 pg 26.2-32.6 Dec 27, 2023 03:37 PM [facility] BASIC METABOLIC PANEL (non-fasting) Specimen Type: SERUM No comment entered. Ordering Provider: KISHA DIAZ AM Report Released Date/Time: Dec 27, 2023 03:31 PM Reporting Lab: [facility] [address] [facility] [address] Performing Lab: [address] [address] UREA NITROGEN 17 mg/dL 7-25 GLUCOSE 89 mg/dL 65-100 SODIUM 140 mmol/L 135-145 POTASSIUM 4.0 mmol/L 3.5-5.0 CHLORIDE 107 mmol/L 100-110 CO2 23 meq/L 20-30 CREATININE, Serum 0.96 mg/dL 0.50-1.40 eGFR(CKD-EPI 2020) 81 mL/min >60 Dec 27, 2023 03:37 PM [facility] LIVER FUNCTION Specimen Type: SERUM No comment entered. Ordering Provider: KISHA DIAZ AM Report Released Date/Time: Dec 27, 2023 03:31 PM Reporting Lab: [address] [address] Performing Lab: [address] [address] PROTEIN,TOTAL 6.4 g/dL 6.0-8.3 ALBUMIN 3.8 g/dL 3.5-5.0 ALKALINE PHOSPHATASE 56 U/L 40-150 AST 18 U/L 5-34 ALT 15 U/L BILIRUBIN, TOTAL 0.6 mg/dL 0.2-1.2 Dec 27, 2023 03:37 PM [facility] LIPID PANEL, NON FASTING Specimen Type: SERUM No comment entered. Ordering Provider: KISHA DIAZ AM Report Released Date/Time: Dec 27, 2023 03:31 PM Reporting Lab: [facility] [address] [facility] [address] Performing Lab: [address] [address] CHOLESTEROL 153 mg/dL TRIGLYCERIDE 105 mg/dL 0-150 [...] Jan 10, 2024 01:41 PM 55 132/78 [place] [facility] [place] Social History: Smoking Status (Most current) and Tobacco Use (All prior to encounter date) This section includes the most current, and the historical, smoking and tobacco- related health factors from the [place] facility where the Encounter took place. Current Smoking Status This section includes the most current smoking, or tobacco-related health factor, from the [place] facility where the Encounter took place. Date/Time Current Smoking Status Comment Facil ity Dec 27, 2023 03:00 PM VA-TOBACCO FORMER USER [place] [facility] [facility] Tobacco Use History This section includes a history of the smoking, or tobacco-related health factors, that were collected on or before the date of the Encounter. The data comes from the [place] facility where the Encounter took place. Date/Time Smoking Status/Tobacco Use Comment F acility Dec 27, 2023 03:00 PM VA-TOBACCO QUIT 15 YRS OR MORE [place] [facility] [place] [facility] May 25, 2022 01:30 PM VA-TOBACCO NEVER USED [place] [facility] [place] [facility] May 19, 2021 02:00 PM VA-TOBACCO FORMER USER [place] [facility] [place] [facility] May 19, 2021 02:00 PM VA-TOBACCO QUIT 15 YRS OR MORE [place] [facility] [facility] Mar 24, 2020 08:36 AM VA-TOBACCO FORMER USER [place] [facility] [place] [facility] Mar 24, 2020 08:36 AM VA-TOBACCO QUIT 15 YRS OR MORE [place] [facility] [place] [facility] Sep 17, 2017 02:25 PM QUIT TOBACCO USE > 7 YEARS AGO [place] [facility] [place] [facility] Encounter Notes: All associated encounter notes This section contains the clinical notes associated to the Encounter. Date/Time Encounter Note(s) Provider Source Jan 10, 2024 01:13 PM PRIMARY CARE OUTPA TIENT NOTE: LOCAL TITLE: AMBULATORY/OUTPATIENT CARE NOTE STANDARD TITLE: PRIMARY CARE OUTPATIENT NOTE DATE OF NOTE: JAN 10, 2024@13:13 ENTRY DATE: JAN 10, 2024@13:13:06 AUTHOR: ZANVETTOR,JOANA EXP COSIGNER: URGENCY: STATUS: COMPLETED F: Nursing Visit [...] guard, watchful, or easily startled? YES 5. [place] numb or detached from people, activities, or your surroundings? NO 6. [place] guilty or unable to stop blaming yourself [...] Mar 2024 with [facility] Opt /es/ Joana Tom MSN RN CNL Primary Care RN Signed: 01/10/2024 13:44 JOANA TOM [facility]
--- OUTSIDE RECORDS SUMMARY | 2024-05-12 13:39 | XMS_ITS | Clinical Summary ---
Author Organization [facility] Address [address] [place] [address] Care Team Providers Care Swaging Machine Adjuster Name Role Phone Community, Pcp Primary Care Provider Unavailabl e Allergies No known active allergies Medications Medication Sig Dispensed Refills Start Date End Date Status levothyroxine (SYNTHROID, LEVOTHROID) 200 MCG tablet Take 1 Tab by mouth daily. (TAKE 2 TABLETS(400MCG) ON THE FIRST ON EACH MONTH) 93 Tab 0 10/09/2018 Active tamsulosin (FLOMAX) 0.4 MG 24 hr capsule Take 1 capsule by mouth daily. Take 30 mins after same meal every day.Take 1 capsule by mouth daily 30 minutes after the same meal every day 90 Cap 1 03/31/2020 Active finasteride (PROSCAR) 5 MG tablet Take 1 Tab by mouth daily. 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 - 08/18 with3 02/01/2013 Immunizations Name Administration Dates Next Due Influenza (> 6 Months) 12/11/2013 Influenza Vaccine-quadrivalent 4 Years Plus 12/19 Pneumoccoccal(Adult) Polysaccharide PPSV23 02/06 Pneumococcal Conjugate PCV-13 12/16/2015 Pneumovax Adult(PT Reported) 01/10/2013 Shingrix (Patient reported) 07/17/2018, 9 TD (STATE SUPPLIED FOR ADULTS AND CHILDREN) 04/19 Family History Relation Name Status Comments Daughter Alive times 2, health y Father Prostrate CA Maternal Grandfather Maternal Grandmother Mother heart, stents, pacemaker Paternal Grandfather Paternal Grandmother Sister Alive healthy Son Alive times 2, health y Social History Tobacco Use Types Packs/Day Years Used Date Smoking Tobacco: Former Cigarettes 1 5 Smokeless Tobacco: Never Comments:quit 46 years ago Alcohol Use Standard Drinks/Week Comments No 0 (1 standard drink = 0.6 oz pur e alcohol) Sex Assigned at Date Recorded Not on file Last Filed Vital Signs Vital Sign Reading Time Taken Comments Blood Pressure 128/70 01/05/2020 1:55 PM EST Pulse 76 01/05/2020 1:55 PM EST Temperature 36.6 ??C (97.8 ??F) 01/05/2020 1:55 PM ES T Respiratory Rate 16 01/05/2020 1:55 PM EST Oxygen Saturation 98% 04/04/2019 8:32 AM EST Inhaled Oxygen Concentration - - Weight 105.2 kg (232 lb) 01/05/2020 1:55 PM EST Height 185.4 cm (6' 1 ) 01/05/2020 1:55 PM EST Body Mass Index 30.61 01/05/2020 1:55 PM EST Plan of Treatment Health Maintenance Due Date Last Done Comments Covid-19 Vaccine (#1) 1945 DTAP/TDAP/TD (1 - Tdap) 05/08/2013 05/07/2013 DEPRESSION SCREEN 02/06/2019 02/06/2018, , 09/13/2015, Additional history exists FALL RISK ASSESSMENT 02/06/2019 02/06/2018, 12/25/2016, 09/13/2015, Additional history exists COLON CANCER SCREENING 03/08/2021 7, 03/08/2016 (External Completion) INFLUENZA (#1) 2023 12/28/2016, 12/11/2013 BMI CHECK/ADVISE 02/19/2024 01/05/2020, , 10/09/2018 (Completed), Additional history exists CHOLESTEROL SCREENING 01/04/2025 01/05/2020 , 10/09/2018, 08/09/2017, Additional history exists HEPATITIS C SCREENING Completed 09/21/2013 PNEUMOCOCCAL VACCINE Completed 02/06/2018, 12/16/19 16 SHINGLES VACCINE Completed 07/17/2018, 03/19/2018 Care Teams Swaging Machine Adjuster Relationship Specialty Start Date End Date Community, Pcp PCP - General Internal Medicine 09/23/20
--- OUTSIDE RECORDS SUMMARY | 2024-05-12 13:39 | XMS_ITS | Encounter Summary ---
Author Organization [facility] Address [address] [place] [address] Care Team Providers Care Furnace Process Supervisor Name Role Phone Aaliyah Smith MD Primary Care Provider Clarice Mac, Pcp Primary Care Provider Manuel shore Encounter Details Date Type Department Care Team Description 01/05/2020 Telephone Medicine/Pediatrics - [address] [phone] Ary Kahn PA-C [address] [place] [id number] Social History Tobacco Use Types Packs/Day Years Used Date Smoking Tobacco: Former Cigarettes 1 5 Smokeless Tobacco: Never Comments:quit 46 years ago Alcohol Use Standard Drinks/Week Comments No 0 (1 standard drink = 0.6 oz pur e alcohol) Sex Assigned at Date Recorded Not on file COVID-19 Exposure Response Date Recorded In the last month, have you been in contact with someone who was confirmed or suspected to have Coronavirus / COVID-19? No / Unsure 01/05/2020 1:46 PM EST documented as of this encounter Miscellaneous Notes * Telephone Encounter - Alana Johnson M.A. - 01/08/2020 3:25 PM EST Pt returned call. Pt states he does not want to start a cholesterol medication. * Telephone Encounter - Alana Johnson M.A. - 01/08/2020 1:49 PM EST [phone] lvm for pt to return call. * Telephone Encounter - Maria De Jesus Ragland - 01/07/2020 4:48 PM EST Pt reurned call please call back at [phone] * Telephone Encounter - Jeanie To M.A. - 01/07/2020 12:07 PM EST Message left for patient to return my call. * Telephone Encounter - Ary Kahn PA-C - 01/05/2020 5:23 PM EST Please call patient and advise that his risk for stroke is elevated and he should be on choelsterolmedication. I would be happy to start patient on cholesterol medicaiton if he is interested. Pleaselet me know if he wants to start a cholesterol medicaiton to lower his risk. documented in this encounter Plan of Treatment Not on file documented as of this encounter Visit Diagnoses Not on filedocumented in this encounter Care Teams Furnace Process Supervisor Relationship Specialty Start Date End Date Aaliyah Smith MD PCP - General Internal Medicine 01/04/15 09/22/20 [facility], Pcp PCP - General Internal Medicine 09/23/20 documented as of this encounter
--- OUTSIDE RECORDS SUMMARY | 2024-05-12 13:39 | XMS_ITS | Encounter Summary ---
Author Organization [facility] Address [address] [place] [address] Care Team Providers Care Housekeeping Laundry Worker Name Role Phone Aaliyah Smith MD Primary Care Provider Clarice webster [facility], Pcp Primary Care Provider Manuel shore Encounter Details Date Type Department Care Team Description 09/13/2015 Wellness Visit Medical Records [address] [place] [address] Aaliyah Smith MD Social History Tobacco Use [...] on filedocumented in this encounter Care Teams Housekeeping Laundry Worker Relationship Specialty Start Date End Date Aaliyah Smith MD PCP - General Internal Medicine 01/04/15 09/22/20 Bub[facility], Pcp PCP - General Internal Medicine 09/23/20 documented as of this encounter
--- OUTSIDE RECORDS SUMMARY | 2024-05-12 13:39 | XMS_ITS | Clinical Summary ---
Author Organization [facility] Address [address] [place] [address] Care Team Providers Care Core Shaper Sides Name Role Phone Aaliyah Carrillo MD Primary Care Provider [phone] Allergies No known active allergies Medications Medication [...] drink = 0.6 oz pur e alcohol) [facility] Utilities Answer Date Recorded In the past 12 months has e [employer], gas, oil, or water [employer] threatened to shut off services in your [...] place to sleep or slept in a skilled nursing (including now)? No 06/12/2023 Sex and Gender [...] 5:45 AM 06/12/2023 11:05 AM Care Teams Core Shaper Sides Relationship Specialty Start Date End Date Aaliyah Carrillo MD [address] [place] [phone] PCP - General Internal Medicine 06/12/23 Aaliyah Carrillo [address] [facility], [address], [place] [address] Primary Care Provider Internal Medicine 04/15/23 Benji Hardwick [address] [place] [address]?? [place] [address] Physician Pulmonary Medicine 04/15/23
--- OUTSIDE RECORDS SUMMARY | 2024-05-12 13:39 | XMS_ITS | Encounter Summary ---
Author Organization [facility] Address [address] [place] [address] Care Team Providers Care Silk Spotter Name Role Phone Aaliyah Smith MD Primary Care Provider Clarice webster [facility], Pcp Primary Care Provider Manuel shore Encounter Details Date Type Department Care Team Description 03/30/2020 Tornado Chaser Report Medical Records [address] [place] [address] Tanisha Rajan MD Social History Tobacco Use [...] on filedocumented in this encounter Care Teams Silk Spotter Relationship Specialty Start Date End Date Aaliyah Smith MD PCP - General Internal Medicine 01/04/15 09/22/20 [facility]ub[facility], Pcp PCP - General Internal Medicine 09/23/20 documented as of this encounter
--- OUTSIDE RECORDS SUMMARY | 2024-05-12 13:39 | XMS_ITS | Encounter Summary ---
Author Organization [facility] Address [address] [place] [address] Care Team Providers Care Powder Coat Painter Name Role Phone Aaliyah Smith MD [facility] Primary Care Provider Manuel shore Reason for Visit * Reason Onset Date Comments TEST RESULTS 08/09/2016 Encounter Details Date Type Department Care Team Description 08/09/2016 Telephone Medicine/Pediatrics - [address] [phone] Aaliyah Smith MD TEST RESULTS Social History [...] on filedocumented in this encounter Care Teams Powder Coat Painter Relationship Specialty Start Date End Date Aaliyah Smith MD PCP - General Internal Medicine 01/04/15 09/22/20 [facility], Pcp PCP - General Internal Medicine 09/23/20 documented as of this encounter
--- OUTSIDE RECORDS SUMMARY | 2024-05-12 13:39 | XMS_ITS | Encounter Summary ---
Author Name [facility] Organization [facility] Address [address] [place] [address] Care Team Providers Care Gatehouse Attendant Name Role Phone TERRIE DIAZ Primary Care [...] VEL MEDEX BRON E Mar 21, 2011 [id number] Katlyn BELLO PATIENT [place] MED[place]ARE SUPPLEMEN [facility] MED[facility] BRON E Mar 21, 2011 [id number] [phone] Katlyn BELLO PATIENT MEDICARE (WN) MEDICARE ([place]) PART A Dec 19, 2008 PART A [id number] Katlyn BELLO PATIENT MEDICARE ([facility]) MEDICARE (M) PART B Dec 19, 2008 PART B [id number] Katlyn BELLO PATIENT Selected Encounter This section includes the information on record at [place] for the Encounter. Date/Time Encounter Type Encounter Description Reason Provider Source Mar 24, 2024 09:45 AM CPTRZD OPH DX IMG PST SGM ON OPTOMETRY ICD-10-CM H40.013 Open angle with borderline findings, low risk, bilateral SABINA ALBRECHT IHEddy Encounter Template Text not used by [place] Assessments - Encounter Diagnoses This section includes the primary and secondary diagnoses documented for the Encounter. Date/Time Primary/Secondary Diagnosis Diagnosis Name Provider Source Apr 29, 2024 04:06 PM PRIMARY Open angle with borderline findings, low risk, bilateral [facility]ABINA ALBRECHT [facility] Social History: Smoking Status (Most [...] 27, 2023 03:00 PM VA-TOBACCO [facility] Tobacco Use History This section includes a history of the smoking, or tobacco-related health factors, that were collected on or before the date of the Encounter. The data comes from the [place] facility where the Encounter took place. Date/Time Smoking Status/Tobacco Use Comment F acility Dec 27, 2023 03:00 PM VA-TOBACCO QUIT 15 YRS OR MORE [place] [facility] [place] [facility] May 25, 2022 01:30 PM VA-TOBACCO NEVER USED [place] [facility] [place] [facility] May 19, 2021 02:00 PM VA-TOBACCO FORMER USER [place] [facility] [place] [facility] May 19, 2021 02:00 PM VA-TOBACCO QUIT 15 YRS OR MORE [place] [facility] [place] [facility] Mar 24, 2020 08:36 AM VA-TOBACCO FORMER USER [place] [facility] [place] [facility] Mar 24, 2020 08:36 AM VA-TOBACCO QUIT 15 YRS OR MORE [place] [facility] [place] [facility] Sep 17, 2017 02:25 PM QUIT TOBACCO USE > 7 YEARS AGO [facility] [place] [facility] Encounter Notes: All associated encounter notes [...] and clinical findings were reviewed with student manager international and patient and results are in this note. Assessment and plan are reasonable. Patient remains low risk open-angle glaucoma suspect OU. Follow-up as scheduled for today. /renetta/ SABINA ALBRECHT OD STAFF INSTRUCTOR PHYSICAL Signed: 03/24/2024 12:01 [facility]BRECHT [facility] Mar 24, 2024 10:58 AM OPTOMETRY [...] /chayo BANKS OPTOMETRY STUDENT Signed: 03/24/2024 11:56 /renetta/ SABINA ALBRECHT OD STAFF INSTRUCTOR PHYSICAL Cosigned: 03/24/2024 11:59 SABINA BANKS [facility]
--- OUTSIDE RECORDS SUMMARY | 2024-05-12 13:39 | XMS_ITS | Clinical Summary ---
Author Organization [employer] Address [address] [facility] [address] [place] [address] Care Team Providers Care Recovery Operator Name Role Phone Unavailable Primary Care Provider [...]
--- OUTSIDE RECORDS SUMMARY | 2024-05-12 13:39 | XMS_ITS | Encounter Summary ---
Author Organization [facility] Address [address] [place] [address] Care Team Providers Care Manufacturer Agent Name Role Phone Aaliyah Smith MD Primary Care Provider Clarice webster [facility], Pcp Primary Care Provider Manuel shore Encounter Details Date Type Department Care Team Description 01/15/2018 Exhibition Carver Report Medical Records [address] [place] [address] Tanisha Rajan MD Social History Tobacco Use [...] on filedocumented in this encounter Care Teams Manufacturer Agent Relationship Specialty Start Date End Date Aaliyah Smith MD PCP - General Internal Medicine 01/04/15 09/22/20 Bubba, Pcp PCP - General Internal Medicine 09/23/20 documented as of this encounter
--- OUTSIDE RECORDS SUMMARY | 2024-05-12 13:39 | XMS_ITS | Encounter Summary ---
Author Organization [facility] Address [address] [place] [address] Care Team Providers Care Fire Watchman Name Role Phone Aaliyah Smith MD Primary Care Provider Clarice webster [facility], Pcp Primary Care Provider Manuel shore Encounter Details Date Type Department Care Team Description 12/25/2016 Wellness Visit Medical Records [address] [place] [address] Aaliyah Smith MD Social History Tobacco Use [...] on filedocumented in this encounter Care Teams Fire Watchman Relationship Specialty Start Date End Date Aaliyah Smith MD PCP - General Internal Medicine 01/04/15 09/22/20 Bubba, Pcp PCP - General Internal Medicine 09/23/20 documented as of this encounter
--- OUTSIDE RECORDS SUMMARY | 2024-05-12 13:39 | XMS_ITS | Encounter Summary ---
Author Organization [facility] Address [address] [place] [address] Care Team Providers Care Seasoner Hand Name Role Phone Aaliyah Smith MD Primary Care Provider Clarice webster [facility], Pcp Primary Care Provider Manuel shore Encounter Details Date Type Department Care Team Description 01/20/2019 Toy Department Manager Report Medical Records [address] [place] [address] Tanisha Rajan MD Social History Tobacco Use [...] on filedocumented in this encounter Care Teams Seasoner Hand Relationship Specialty Start Date End Date Aaliyah Smith MD PCP - General Internal Medicine 01/04/15 09/22/20 Bubba, Pcp PCP - General Internal Medicine 09/23/20 documented as of this encounter
--- OUTSIDE RECORDS SUMMARY | 2024-05-12 13:39 | XMS_ITS | Encounter Summary ---
Author Organization [facility] Address [address] [place] [address] Care Team Providers Care Microbiology Director Name Role Phone Ricky West MD Primary Care Provider Unavail Aaliyah Yanez MD Primary Care Provider Clarice Mac, Pcp Primary Care Provider Manuel shore Encounter Details Date Type Department Care Team Description 01/05/2014 Hospital Medical Records [address] [place] [address] Chris Little MD Social History Tobacco Use [...] on filedocumented in this encounter Care Teams Microbiology Director Relationship Specialty Start Date End Date Ricky West MD PCP - General Internal Medicine 01/02/13 01/03/15 Aaliyah Smith MD PCP - General Internal Medicine 01/04/15 09/22/20 Bubba, Pcp PCP - General Internal Medicine 09/23/20 documented as of this encounter
== END 2024-05-12 11:41 | disposition home or self-care (01) ==
LOC: HO.HOS 11:06
PROVIDERS: PCP Internal Medicine; Visit Provider Orthopaedic Surgery
DX: M25.561 Pain in right knee (principal)
CPT/HCPCS: 20610; 99213

== ENCOUNTER → 2024-05-12 11:04 | Outpatient (BNVA) | payer MEDICARE, SELFPAY | PROVIDERS: PCP Internal Medicine; Visit Provider Orthopaedic Surgery | DX: M25.561 Pain in right knee (principal) | CPT/HCPCS: 20610; 99212; J1010; J2003 ==

== ENCOUNTER 2024-07-06 09:52 | Emergency (ER) | payer MEDICARE, SELFPAY ==
--- NOTE | ~2024-07-06 | XR_ITS ---
EXAMINATION: XR KNEE, RIGHT CLINICAL INFORMATION: pain, injury COMPARISON: None available. TECHNIQUE: Four views of the right knee. FINDINGS: No fracture, dislocation, or suspicious bone lesion. There is a bone island in the medial femoral metadiaphysis. Diffuse chondrocalcinosis in all 3 compartments. Findings suggest CPPD. Mild joint space narrowing tricompartmentally. Mild spurring of the tibial spines. No definite joint effusion although the knee is in flexion on the lateral projection. No discrete soft tissue abnormality aside from early vascular calcifications. XR/XR knee RT 3V IMPRESSION: 1. No acute bony abnormalities. 2. Diffuse chondrocalcinosis with mild tricompartmental arthrosis. Electronically signed by: Dennis Martins MD 07/06/2024 12:53 PM EDT
[2024-07-06 10:09] VITALS: BP 145/71; PULSE 65; RESP 18; TEMP 36.5; O2SAT 97; BMI 29.2
--- NOTE | 2024-07-06 12:15 | ED.GENADULT ---
HPI - General Adult General Chief complaint: Extremity Injury, Lower Stated complaint: r knee pain Time Seen by Provider: 07/06/24 15:40 Source: patient, family, RN notes reviewed and old records reviewed Mode of arrival: ambulatory History of Present Illness ED Provider: Mikalya Garrett PA-C HPI narrative: 79-year-old male with a past medical history of osteoarthritis, HLD, neuropathy, presenting to the ED complaining of acute on chronic right knee pain x2 weeks. States he has been going to pulmonary rehab and concerned he re-injured/exacerbated his knee during exercises/bike peddling. Admits he has a orthopedic appointment in a few weeks. Admits to receiving prior cortisone injections to right knee a few months ago with symptomatic improvement. Denies recent injury, trauma, fall, numbness, tingling, fever/chills Related Data Previous Rx's ?Medication ?Instructions ?Recorded albuterol sulfate 90 mcg/actuation 2 puff inhalation Q4H PRN 10/28/23 aerosol inhaler shortness of breath or wheezing 90 days #8.5 grams levothyroxine 200 mcg tablet 200 mcg PO DAILY #90 tabs 10/28/23 pregabalin 150 mg capsule 150 mg PO BID 90 days #180 caps 10/28/23 atorvastatin 20 mg tablet 20 mg PO DAILY 90 days #90 tabs 04/23/24 umeclidinium 62.5 mcg-vilanterol 1 inh inhalation Q24H #60 ea 04/23/24 25 mcg/actuation powdr for inhalation (Anoro Ellipta) naproxen 500 mg tablet 500 mg PO BID PRN pain 10 days #20 07/06/24 tabs prednisone 20 mg tablet 40 mg (2 x 20 mg) PO DAILY 3 days 07/06/24 #6 tabs Allergies Allergy/AdvReac Type Severity Reaction Status Date / Time No Known Allergies Allergy Verified 07/06/24 10:11 Review of Systems Review of Systems: Yes all other systems are reviewed and are negative Constitutional: Constitutional: Reports as per [facility] Past Medical History Attestation statement: The following information was validated with the patient. Source: old records reviewed Family History Family History Mother Coronary artery disease Pulmonary embolism Father Cancer of prostate Social History Social History (Reviewed 07/06/24 @ 15:59 by ROGE Anne Housing: House Alcohol intake: never Patient Tobacco Use Status: Former Tobacco user Cigarette Packs Per Day: 0.5 Years Smoked: 3 Smoked in Last 30 Days: No e-Cigarette/Vaping Use: Never Used Second Hand Smoke Exposure: No Advance Directives: No Advance Directives Information Provided: Yes service: Yes Current occupational status: retired Cognitive needs: No Hearing needs: Yes (bilateral hearing aids) Vision needs: Yes (glasses) Physical Exam ED Vital Signs: Vital Signs - 24 hr 07/06/24 10:09 07/06/24 15:15 Temperature 97.7 F 98 F Pulse Rate 65 59 Respiratory Rate 18 18 Blood Pressure 145/71 H 167/80 H Pulse Oximetry 97 98 Oxygen Delivery Method Room Air Room Air BMI result Body Mass Index 29.2 Const General: cooperative, healthy appearing and no acute distress Orientation/consciousness: patient oriented x3 Limitations: no limitations HENMT Head: Yes normal to inspection and Yes atraumatic Ears: hearing grossly normal bilaterally General nose exam: Normal external nose present Face and sinus: Yes normal facial exam Eyes General: appearance normal, both eyes and all related structures EOM: EOMs intact bilaterally Neck Neck: Yes normal visual inspection and Yes no meningeal signs Resp Effort & Inspection: normal respiratory effort and no respiratory distress Cardio Rate: regular rate Skin Rashes: no rashes Wounds: no wounds Neuro General: patient oriented x3, tone normal and no meningeal signs Cranial nerves: Yes CN's II-XII intact bilaterally Gait exam (Neuro): Normal gait present Extrem Other: Right knee with mild swelling greatest to medial aspect. Tender to palpation. No erythema/warmth or crepitus. Full range of motion intact. Neurovascularly intact distally. No pitting edema. No calf tenderness Course Course Course Narrative: RME performed by Cassia Mondragon PA-C. Patient is a 79 year old assigned male/female] at presenting to the emergency department with right knee pain. Patient states that over the last 2 weeks he has had right knee pain that is not improving. Has an orthopedic appointment next Saturday. Detailed physical exam and review of systems are deferred to the evaporator repairer. Imaging ordered. Patient placed back in the waiting room pending room availability and results. XR knee RT 3V IMPRESSION: 1. No acute bony abnormalities. 2. Diffuse chondrocalcinosis with mild tricompartmental arthrosis. Results discussed with patient including worrisome signs and symptoms and strict return precautions, and when to return to the emergency department. They verbalized understanding and feel safe for discharge at this time. Procedures Orthopedic Splinting/Casting Injury #1: Side: right Lower Extremity Injury Location: knee Lower Extremity Immobilizer: Vincent wrap Medical Decision Making Medical Decision Making MDM Narrative: 79-year-old male with a past medical history of osteoarthritis, HLD, neuropathy, presenting to the ED complaining of acute on chronic right knee pain x2 weeks. On exam vital signs stable, NAD, nontoxic appearing, physical exam as noted above. Concern for osteoarthritic flare vs meniscal/tendon or ligamental injury vs tendinitis. Low suspicion for DVT. No evidence of septic joint/arthritis Plan: XR, pain control Please refer to course for remaining clinical decision making, interpretation of labs/imaging results, and discussions with consultants and/or family members. Differential Diagnosis Differential Diagnoses: The differential diagnosis associated with the presentation includes As above Independent Interpretation I performed an independent interpretation of an: Plain X-Ray Radiology Impression Discussion of test interpretation with radiology: I have reviewed the radiologist's reading. External Record Review External record reviewed: Inpatient record, Office record, Outpatient record, Prior outpatient labs, Prior outpatient radiology, Primary care record and Outside ED record Tests considered The following testing was considered but not selected: As above Prescription Management I considered prescription management with: Pain Medication Chronic Conditions Patient?s care impacted by: Other Social Determinants Patient?s care significantly limited by Social Determinants of Health including: Other Social Determinant of Health Discharge Plan Discharge Clinical Impression: Osteoarthritis, Chondrocalcinosis Patient Disposition: Home, Self-Care Instructions: Osteoarthritis (DC) Additional Instructions: Your x-ray shows arthritic/degenerative changes as well as suspected pseudogout Naproxen as an anti-inflammatory/pain medication, take with food. In addition you may take Tylenol In addition prednisone as a anti-inflammatory pain medication Please have close follow up with Orthopedics Wear Vincent wrap for compression/stability If area becomes red, warm, you have fever, difficulty or inability to ambulate return to the ED Prescriptions: New prednisone 20 mg tablet 40 mg PO DAILY 3 Days Qty: 6 0RF naproxen 500 mg tablet 500 mg PO BID PRN (Reason: pain) 10 Days Qty: 20 0RF No Action pregabalin 150 mg capsule 150 mg PO BID 90 Days Qty: 180 0RF albuterol sulfate 90 mcg/actuation HFA aerosol inhaler 2 puff inhalation Q4H PRN (Reason: shortness of breath or wheezing) 90 Days Qty: 8.5 3RF levothyroxine 200 mcg tablet 200 mcg PO DAILY Qty: 90 3RF Anoro Ellipta 62.5-25 mcg/actuation blister with device 1 inh inhalation Q24H Qty: 60 0RF atorvastatin 20 mg tablet 20 mg PO DAILY 90 Days Qty: 90 3RF Referrals: [facility] Orthopedic Surgeons [Provider Group] - 1 week Aaliyah Carrillo MD [Primary Care Provider] - 3 days Print Language: Sri Lankan
[2024-07-06 15:15] VITALS: BP 167/80; PULSE 59; RESP 18; TEMP 36.6; O2SAT 98
--- OUTSIDE RECORDS SUMMARY | 2024-07-06 15:31 | XMS_ITS | Encounter Summary ---
Author Organization [facility] Address [address] [place] [address] Care Team Providers Care Slab Depiler Operator Name Role Phone Pcp, No Primary Care Provider Unavailabl e Unknown Primary Care Provider [phone] Aaliyah Carrillo MD Primary Care Provider [phone] Encounter Details Date Type Department Care Team (Late st Contact Info) Description 12/19/2020 Scanned Document [facility] [place] at [address] [phone] Provider, External, [address] [place] [address] Social History Tobacco Use Types Packs/Day Years Used Date Smoking Tobacco: Never Assessed Sex and Gender Information Value Date Recorded Sex Assigned at Male 04/14/2023 12:07 AM EST Legal Sex Male 6:49 PM EST Gender Identity Male 04/14/2023 12:07 AM [...] on filedocumented in this encounter Care Teams Slab Depiler Operator Relationship Specialty Start Date End Date Pcp, No PCP - General General Medicine 12/19/20 04/14/23 Unknown Unknow Provider Address PCP - General 04/16/23 06/11/23 Aaliyah Carrillo MD [address] [place] [phone] PCP - General Internal Medicine 06/12/23 Aaliyah Carrillo [address] [place] [address], [facility] [address], [place] [address] Primary Care Provider Internal Medicine 04/15/23 Aaliyahdarryl Carrillo [address] [place] [address], [address] [address] Primary Care Provider Internal Medicine 04/15/23 Benji Hardwick [address] [place] [address]?? [place] [address] Physician Pulmonary Medicine 04/15/23 documented as of this encounter
--- OUTSIDE RECORDS SUMMARY | 2024-07-06 15:31 | XMS_ITS | Encounter Summary ---
Author Organization [facility] Address [address] [place] [address] Care Team Providers Care Treating Plant Pumper Name Role Phone Ricky West MD Primary Care Provider Unavail able Aaliyah Smith MD Primary Care Provider Clarice Mac, Pcp Primary Care Provider Manuel hsore Encounter Details Date Type Department Care Team Description 07/22/2013 Woodenware Assembler Report Medical Records [address] [place] [address] Antonio Jarvis Social History Tobacco Use Types [...] on filedocumented in this encounter Care Teams Treating Plant Pumper Relationship Specialty Start Date End Date Ricky West MD PCP - General Internal Medicine 01/02/13 01/03/15 Aaliyah Smith MD PCP - General Internal Medicine 01/04/15 09/22/20 Bubba, Pcp PCP - General Internal Medicine 09/23/20 documented as of this encounter
--- OUTSIDE RECORDS SUMMARY | 2024-07-06 15:31 | XMS_ITS | Encounter Summary ---
Author Organization [facility] Address [address] [place] [address] Care Team Providers Care Graphic Coordinator Name Role Phone Aaliyah Smith MD Primary Care Provider Clarice webster [facility], Pcp Primary Care Provider Manuel shore Encounter Details Date Type Department Care Team Description 05/31/2017 Steel Box Toe Inserter Report Medical Records [address] [place] [address] Tanisha Rajan MD Social History Tobacco Use [...] on filedocumented in this encounter Care Teams Graphic Coordinator Relationship Specialty Start Date End Date Aaliyah Smith MD PCP - General Internal Medicine 01/04/15 09/22/20 Bubba, Pcp PCP - General Internal Medicine 09/23/20 documented as of this encounter
--- OUTSIDE RECORDS SUMMARY | 2024-07-06 15:31 | XMS_ITS | Encounter Summary ---
Author Name [facility] [facility] [place] [facility] [place] Address [address] [place] [address] Care Team Providers Care Paper And Pulp Mill Operator Name Role Phone TERRIE DIAZ Primary [...] VEL MEDEX BRONZ E Mar 21, 2011 [id number] Katlyn BELLO PATIENT [facility] MEDICARE SUPPLEMEN VEL MEDEX BRONZ E Mar 21, 2011 [id number] Katlyn BELLO PATIENT MEDICARE (WNR) MEDICARE (M) PART A Dec 19, 2008 PART A [id number] Katlyn BELLO PATIENT MEDICARE (WNR) MEDICARE (M) PART B Dec 19, 2008 PART B [id number] Katlyn BELLO PATIENT Selected Encounter This section includes the information on record at [place] for the Encounter. Date/Time Encounter Type Encounter Description Reason Provider Source Mar 24, 2024 09:45 AM CPTRZD OPH DX IMG PST SGM ON OPTOMETRY ICD-10-CM H40.013 Open angle with borderline findings, low risk, bilateral SABINA ALBRECHT IHE Encounter Template Text not used by [place] Assessments - Encounter Diagnoses This section includes the primary and secondary diagnoses documented for the Encounter. Date/Time Primary/Secondary Diagnosis Diagnosis Name Provider Source Apr 29, 2024 04:06 PM PRIMARY Open angle with borderline findings, low risk, bilateral SABINA ALBRECHT [place] [facility] [place] [facility] Social History: Smoking Status (Most current) and Tobacco Use (All prior to encounter date) This section includes the most current, and the historical, smoking and tobacco- related health factors from the [place] facility where the Encounter took place. Current Smoking Status This section includes the most current smoking, or tobacco-related health factor, from the [place] facility where the Encounter took place. Date/Time Current Smoking Status Comment Facil ity Dec 27, 2023 03:00 PM VA-TOBACCO QUIT 15 YRS OR [facility] Tobacco Use History This section includes a history of the smoking, or tobacco-related health factors, that were collected on or before the date of the Encounter. The data comes from the [place] facility where the Encounter took place. Date/Time Smoking Status/Tobacco Use Comment F acility Dec 27, 2023 03:00 PM VA-TOBACCO QUIT 15 YRS OR MORE [place] [facility] [place] [facility] May 25, 2022 01:30 PM VA-TOBACCO NEVER USED [place] [facility] [facility] May 19, 2021 02:00 PM VA-TOBACCO FORMER USER [place] [facility] [place] [facility] May 19, 2021 02:00 PM VA-TOBACCO QUIT 15 YRS OR MORE [place] [facility] [facility] Mar 24, 2020 08:36 AM VA-TOBACCO FORMER USER [place] [facility] [facility] Mar 24, 2020 08:36 AM VA-TOBACCO QUIT 15 YRS OR MORE [place] [facility] [place] [facility] Sep 17, 2017 02:25 PM QUIT TOBACCO USE > 7 YEARS AGO [place] [facility] [place] [facility] Encounter Notes: All [...] and clinical findings were reviewed with student hospital intern and patient and results are in this note. Assessment and plan are reasonable. Patient remains low risk open-angle glaucoma suspect OU. Follow-up as scheduled for today. /renetta/ SABINA ALBRECHT OD STAFF RABIES INSPECTOR Signed: 03/24/2024 12:01 SABINA ALBRECHT [facility] Mar 24, 2024 10:58 AM OPTOMETRY CONSULT: [...] Signed: 03/24/2024 11:56 /chayo ALBRECHT OD STAFF RABIES INSPECTOR Cosigned: 03/24/2024 11:59 SABINA BANKS [facility]
--- OUTSIDE RECORDS SUMMARY | 2024-07-06 15:31 | XMS_ITS | Encounter Summary ---
Author Organization [facility] Address [address] [place] [address] Care Team Providers Care Fitter / Welder Name Role Phone Ricky West MD Primary Care Provider Unavail able Aaliyah Smith MD Primary Care Provider Clarice Mac, Pcp Primary Care Provider Manuel shore Encounter Details Date Type Department Care Team Description 01/05/2014 Hospital Medical Records [address] [place] [address] Chris Little MD Social History Tobacco Use [...] on filedocumented in this encounter Care Teams Fitter / Welder Relationship Specialty Start Date End Date Ricky West MD PCP - General Internal Medicine 01/02/13 01/03/15 Aaliyah Smith MD PCP - General Internal Medicine 01/04/15 09/22/20 Bubba, Pcp PCP - General Internal Medicine 09/23/20 documented as of this encounter
--- OUTSIDE RECORDS SUMMARY | 2024-07-06 15:31 | XMS_ITS ---
Author Name [facility] [place] [facility] [place] Address [address] [place] [address] Care Team Providers Care Batch Unit Treater Name Role Phone TERRIE DIAZ Primary Care [...] Cardenas's Name Patient's Relationship to Policy Cardenas [facility] MEDICARE SUPPLEMEN VEL MEDEX BRONZ E Mar 21, 2011 [id number] Katlyn BELLO PATIENT [facility] MEDICARE SUPPLEMEN VEL MEDEX BRONZ E Mar 21, 2011 [id number] Katlyn BELLO PATIENT MEDICARE (WNR) MEDICARE (M) PART A Dec 19, 2008 PART A [id number] Katlyn BELLO PATIENT MEDICARE (WNR) MEDICARE (M) PART B Dec 19, 2008 PART B [id number] [phone] [id number] Katlyn BELLO PATIENT Selected Encounter This section includes the information on record at [place] for the Encounter. Date/Time Encounter Type Encounter Description Reason Provider Source Mar 24, 2024 10:00 AM COMPRE OPH EXAM EST PT 1/> OPTOMETRY ICD-10-CM H04.123 Dry eye syndrome of bilateral lacrimal glands SABINA ALBRECHT [place] Encounter Template Text not used by [place] Assessments - Encounter Diagnoses This section includes the primary and secondary diagnoses documented for the Encounter. Date/Time Primary/Secondary Diagnosis Diagnosis Name Provider Source Apr 30, 2024 12:53 PM PRIMARY Dry eye syndrome of bilateral lacrimal glands SABINA ALBRECHT [place] [facility] [place] [facility] Apr 30, 2024 12:53 PM SECONDARY Open angle with borderline findings, low risk, bilateral SABINA ALBRECHT [place] [facility] [place] [facility] Social History: Smoking Status (Most current) [...] YRS OR MORE [place] [facility] [place] [facility] Tobacco Use History This section includes a history of the smoking, or tobacco-related health factors, that were collected on or before the date of the Encounter. The data comes from the [place] facility where the Encounter took place. Date/Time Smoking Status/Tobacco Use Comment F acility Dec 27, 2023 03:00 PM VA-TOBACCO QUIT 15 YRS OR MORE [place] [facility] [place] [facility] May 25, 2022 01:30 PM VA-TOBACCO NEVER USED [place] [facility] [place] [facility] May 19, 2021 02:00 PM VA-TOBACCO FORMER USER [place] [facility] [place] [facility] May 19, 2021 02:00 PM VA-TOBACCO QUIT 15 YRS OR MORE [place] [facility] [place] [facility] Mar 24, 2020 08:36 AM VA-TOBACCO FORMER USER [place] [facility] [place] [facility] Mar 24, 2020 08:36 AM VA-TOBACCO QUIT 15 YRS OR MORE [place] [facility] [place] [facility] Sep 17, 2017 02:25 PM QUIT TOBACCO USE > 7 YEARS AGO [facility] Encounter Notes: All associated encounter notes [...] glaucoma imaging. /renetta/ SABINA ALBRECHT OD STAFF SPACE AND MISSILE OPERATIONS SPACELIFT Signed: 03/24/2024 11:13 SABINA ALBRECHT [facility] Mar 24, 2024 07:12 AM OPTOMETRY NOTE: LOCAL TITLE: OPTOMETRY NOTE STANDARD TITLE: OPTOMETRY NOTE DATE OF NOTE: MAR 24, 2024@07:12 ENTRY DATE: MAR 24, 2024@07:12:45 AUTHOR: SABINA BANKS EXP COSIGNER: SAIBNA ALBRECHT URGENCY: STATUS: COMPLETED Active problems - Computerized Problem List is the source for the followin. AF - Atrial Fibrillation ([facility] [id number]) 2. Exposure to potentially hazardous substance 3. COPD - Chronic Obstructive Pulmonary Disease ([facility] [id number]) 4. Hyperlipidemia 5. Papillary thyroid carcinoma 6. [...] (ANORO) INHL,ORAL BY MOUTH ACTIVE 6) Non-VA HIVPKROMFUAU49.5/VILANTEROL 25MCG 30D INH 1 INHALATION ACTIVE BY [...] cyst, November [address] Hayes at [place] (-) TBI FOHx: (-) Glaucoma/ARMD/Blindness VITALS (most [...] HVF and OCT RNFL or earlier PRN Nettie Education: After discussion and answering all 's questions, Nettie demonstrated and verbalized understanding of diagnosis and [...] Signed: 03/24/2024 11:57 /renetta/ SABINA ALBRECHT STAFF SPACE AND MISSILE OPERATIONS SPACELIFT Cosigned: 03/24/2024 11:59 SABINA BANKS [place] [facility]
--- OUTSIDE RECORDS SUMMARY | 2024-07-06 15:31 | XMS_ITS | Encounter Summary ---
Author Organization [email or web address] Address [address] [place] [address] Care Team Providers Care Fluxer Name Role Phone Unavailable Primary Care Provider Unavailabl e Encounter Details Date Type Department Care Team (Latest Contact Info) Description 03/18/2018 Abstract C CONVERSIONS Dental, Provider, DDS Social History Tobacco [...]
--- OUTSIDE RECORDS SUMMARY | 2024-07-06 15:31 | XMS_ITS | Clinical Summary ---
Author Organization [facility] Address [address] [place] [address] Care Team Providers Care Vehicle Dismantler Name Role Phone Aaliyah Carrillo MD Primary Care Provider [phone] Allergies No known active allergies Medications levothyroxine (SYNTHROID, LEVOTHROID) 200 MCG tablet Take 1 tablet (200 mcg total) by mouth every evening. 3 Active albuterol (PROVENTIL HFA; VENTOLIN HFA) 108 (90 Base) MCG/ACT inhaler Inhale 2 puffs 4 times daily (every 6 hours) as needed. 3 Active atorvastatin (LIPITOR) 20 MG tablet Take 1 tablet (20 mg total) by mouth every evening. 3 Active gabapentin (NEURONTIN) 300 MG capsule Take 1 capsule (300 mg total) by mouth 3 times daily (every 8 hours) as needed. 3 Active umeclidinium-maggy nterol (ANORO ELLIPTA) 62.5-25 MCG/ACT inhaler Inhale 1 puff every morning. 3 Active HYDROmorphone (DILAUDID) 2 MG tabletIndications :Neurogenic claudication due to lumbar spinal stenosis Take 1 tablet (2 mg total) by mouth Every 4 (four) to 6 (six) hours as needed for severe pain. Max Daily Amount: 12 mg 40 tablet 4 Active cyclobenzaprine (FLEXERIL) 5 MG tabletIndications :Neurogenic claudication due to lumbar spinal stenosis Take 1 tablet (5 mg total) by mouth 3 (three) times a day as needed for muscle spasms. 40 tablet 4 Active senna-docusate (SENNA-S) 8.6-50 MGIndications:Sarah rogenic claudication due to lumbar spinal stenosis Take 2 tablets by mouth nightly. 60 tablet 4 Active acetaminophen (TYLENOL) 325 MG tabletIndications :Neurogenic claudication due to lumbar spinal stenosis Take 3 tablets (975 mg total) by mouth every 8 (eight) hours around the clock. 90 tablet 4 Active Active Problems Problem Noted Date Diagnosed [...] drink = 0.6 oz pur e alcohol) [facility] Utilities Answer Date Recorded In the past 12 months has e [employer], gas, oil, or water [employer] threatened to shut off services in your [...] place to sleep or slept in a jail (including now)? No 06/12/2023 Sex and Gender [...] Patients (1 - 1-dose 75+ series) 2022 COVID-19 Vaccine ( - season) 2023 05/11/2020, 04/13/2020 Influenza Vaccine 09/18/2024 12/28/2016, 12/11/2013 Chronic Controlled Substance User PDMP Review Discontinued 04/16/2023 Hepatitis B Vaccines Aged Out No long er eligible based on patient's age to complete this topic Insurance [facility] [employer] MEDICARE PART A & B [place] [id number] [facility] Member Subscriber Plan / Payer (Ef fective 2019-Present) Name:Evert Clemons Relation to Subscriber:Self Name:Evert Clemons Payer ID:[id number] Group ID:Not on file Type:Not on file Address: [facility] [address],ATTN:[place] [address] Advance Directives * Full Code (Latest Code Status on File) Date Activated Date Inactivated Comments 06/12/2023 11:05 AM Question Answer Comments Decision Thoroughly Discussed with: Patient * Full Code Date Activated Date Inactivated Comments 06/12/2023 5:45 AM 06/12/2023 11:05 AM Care Teams Vehicle Dismantler Relationship Specialty Start Date End Date Aaliyah Carrillo MD [address] [place] [phone] PCP - General Internal Medicine 06/12/23 Aaliyah Carrillo [address] [place] [address], [facility] [address], [place] [address] Primary Care Provider Internal Medicine 04/15/23 Benji Hardwick [address] [place] [address]?? [place] [address] Physician Pulmonary Medicine 04/15/23
--- OUTSIDE RECORDS SUMMARY | 2024-07-06 15:31 | XMS_ITS | Encounter Summary ---
Author Organization [facility] Address [address] [place] [address] Care Team Providers Care Accounts Receivable Processor Name Role Phone Aaliyah Smith MD Primary Care Provider Clarice webster [facility], Pcp Primary Care Provider Manuel shore Encounter Details Date Type Department Care Team Description 12/25/2016 Wellness Visit Medical Records [address] [place] [id number] Aaliyah Smith MD Social History Tobacco Use [...] on filedocumented in this encounter Care Teams Accounts Receivable Processor Relationship Specialty Start Date End Date Aaliyah Smith MD PCP - General Internal Medicine 01/04/15 09/22/20 Bubba, Pcp PCP - General Internal Medicine 09/23/20 documented as of this encounter
--- OUTSIDE RECORDS SUMMARY | 2024-07-06 15:31 | XMS_ITS ---
Author Name [facility] [place] [facility] [place] Address [address] [place] [address] Care Team Providers Care Supervisor Blast Furnace Name Role Phone RUBA MELCHOR Primary Care Provider Unavaila ble Insurance [...] Cardenas's Name Patient's Relationship to Policy Cardenas [facility] MEDICARE SUPPLEMEN VEL MEDEX BRONZ E Mar 21, 2011 [id number] Katlyn BELLO PATIENT [facility] MEDICARE SUPPLEMEN VEL MEDEX BRONZ E Mar 21, 2011 [id number] Katlyn BELLO PATIENT MEDICARE (WNR) MEDICARE (M) PART A Dec 19, 2008 PART A [id number] Katlyn BELLO PATIENT MEDICARE (WNR) MEDICARE (M) PART B Dec 19, 2008 PART B [id number] Katlyn BELLO PATIENT Selected Encounter This section includes the information on record at [place] for the Encounter. Date/Time Encounter Type Encounter Description Reason Provider Source Dec 27, 2023 03:00 PM OFFICE O/P EST MOD 30 MIN PRIMARY CARE/MEDICINE ICD-10-CM I48.91 Unspecified atrial fibrillation JOESOLANGE CESAR Debbie [facility] Encounter Template Text not used by [place] Assessments - Encounter Diagnoses This section includes the primary and secondary diagnoses documented for the Encounter. Date/Time Primary/Secondary Diagnosis Diagnosis Name Provider Source Jan 09, 2024 04:55 PM PRIMARY Unspecified atrial fibrillation [facility]ELCHOR [facility] Jan 09, 2024 04:55 PM SECONDARY Chronic obstructive pulmonary disease, unspecified SOLANGE MELCHOR [facility] Plan of Treatment: Future Appointments (+ 6 months) and Future Tests (+/- 45 days) The Plan of Treatment section includes future care activities for the patient from all [place] treatmentfacilities. This section includes future appointments and future orders which are active, pending or scheduled. Future Appointments This section includes appointments that were scheduled to occur 6 months from the date of the Encounter, up to a maximum of 20 appointments. The data comes from all [place] treatment facilities. Appointment Date/Time Appointment Type Appointme nt Facility Name Jan 10, 2024 01:00 PM AMBULATORY - [facility]ICINE [facility] [place] [facility] Feb 20, 2024 04:40 PM AMBULATORY MED[facility]INE [facility] [place] [facility] Mar 24, 2024 09:30 AM AMBULATORY [facility] [place] [facility] Mar 24, 2024 09:45 AM AM[facility]ULATORY [facility] [place] [facility] Mar 24, 2024 10:00 AM AMBULATORY [facility] Lab Results: +/- 30 days of the encounter This section includes the Chemistry and Hematology Lab Results on record with [place] for the patient. Radiology Reports and Pathology Reports are provided separately, in subsequent sections. Lab Results This section contains the Chemistry/Hematology Results that were resulted 30 days before or 30 daysafter the date of the Encounter. Date/Time Source Result Type Result - Unit Interpretation Reference Range Specimen Type Comment Dec 27, 2023 03:37 PM [facility] TSH SERUM Specimen Type: SERUM No comment entered. Ordering Provider: RUBA MELCHOR Report Released Date/Time: Dec 27, 2023 03:31 PM Reporting Lab: [address] [address] Performing Lab: [address] [address] TSH 0.08 u[IU]/mL L 0.35-5.00 Dec 27, 2023 03:37 PM [facility] HEMOGLOBIN A1C PANEL BLOOD Specimen Type: BLO OD Comment: Values obtained from A1C measurements can vary. For atypical A1C assays, a reported value of 7.0 could actually be between 6.72 and 7.28 if measured by a reference method. A reported value of 9.0 could actually be between 8.73 and 9.27. Ref: http://www.ngsp.org/CAPdata.asp Ordering Provider: RUBA MELCHOR Report Released Date/Time: Dec 27, 2023 03:31 PM Reporting Lab: [address] [address] Performing Lab: [address] [address] HEMOGLOBIN A1C 5.2 4.0-5.6 Dec 27, 2023 03:37 PM [facility] CBC BLOOD Specimen Type: BLOOD No comment entered. Ordering Provider: RUBA MELCHOR Report Released Date/Time: Dec 27, 2023 03:31 PM Reporting Lab: [address] [address] Performing Lab: [address] [address] WBC 7.94 10*3/uL 4.50-11.00 RBC 4.90 10*6/uL 4.23-5.66 HGB 14.7 g/dL 12.8-17 HCT 43.5 39.2-50.4 MCV 88.8 fL 82-99 MCHC 33.8 g/dL 30.8-35.1 PLT 263 10*3/uL 140-360 RDW-CV 13.2 12.0-16.0 MCH 30.0 pg 26.2-32.6 Dec 27, 2023 03:37 PM [facility] BASIC METABOLIC PANEL (non-fasting) SERUM Spe cimen Type: SERUM No comment entered. Ordering Provider: RUBA MELCHOR Report Released Date/Time: Dec 27, 2023 03:31 PM Reporting Lab: [address] [address] Performing Lab: [address] [address] UREA NITROGEN 17 mg/dL 7-25 GLUCOSE 89 mg/dL 65-100 SODIUM 140 mmol/L 135-145 POTASSIUM 4.0 mmol/L 3.5-5.0 CHLORIDE 107 mmol/L 100-110 CO2 23 meq/L 20-30 CREATININE, Serum 0.96 mg/dL 0.50-1.40 eGFR(CKD-EPI 2020) 81 mL/min >60 Dec 27, 2023 03:37 PM [facility] LIVER FUNCTION SERUM Specimen Type: SERUM No comment entered. Ordering Provider: RUBA MELCHOR Report Released Date/Time: Dec 27, 2023 03:31 PM Reporting Lab: [address] [address] Performing Lab: [address] [address] PROTEIN,TOTAL 6.4 g/dL 6.0-8.3 ALBUMIN 3.8 g/dL 3.5-5.0 ALKALINE PHOSPHATASE 56 U/L 40-150 AST 18 U/L 5-34 ALT 15 U/L BILIRUBIN, TOTAL 0.6 mg/dL 0.2-1.2 Dec 27, 2023 03:37 PM [facility] LIPID PANEL, NON FASTING SERUM Specimen Type: SERUM No comment entered. Ordering Provider: RUBA MELCHOR Report Released Date/Time: Dec 27, 2023 03:31 PM Reporting Lab: [address] [address] Performing Lab: [address] [address] CHOLESTEROL 153 mg/dL TRIGLYCERIDE 105 mg/dL 0-150 [...] 180/92 20 98 2 73 232 31 [place] [facility] [facility] Social History: Smoking Status (Most current) [...] 27, 2023 03:00 PM VA-TOBACCO FOR[facility] [place] [facility] Tobacco Use History This section includes a history of the smoking, or tobacco-related health factors, that were collected on or before the date of the Encounter. The data comes from the [place] facility where the Encounter took place. Date/Time Smoking Status/Tobacco Use Comment F acility Dec 27, 2023 03:00 PM VA-TOBACCO QUIT 15 YRS OR MORE [place] [facility] [place] [facility] May 25, 2022 01:30 PM VA-TOBACCO NEVER USED [place] [facility] [place] [facility] May 19, 2021 02:00 PM VA-TOBACCO FORMER USER [place] [facility] [place] [facility] May 19, 2021 02:00 PM VA-TOBACCO QUIT 15 YRS OR MORE [place] [facility] [place] [facility] Mar 24, 2020 08:36 AM VA-TOBACCO FORMER USER [place] [facility] [place] [facility] Mar 24, 2020 08:36 AM VA-TOBACCO QUIT 15 YRS OR MORE [place] [facility] [place] [facility] Sep 17, 2017 02:25 PM QUIT TOBACCO USE > 7 YEARS AGO [place] [facility] [place] [facility] Encounter Notes: All associated encounter notes [...] 78 year old . HPI: Pleasant male [place] here to follow up. Comes yearly. Follows with: PCP - Dr Locke endocrine - Dr Morel pulm - Dr Hardwick, [facility] [place] Allergies: Patient has answered NKA The following [...] (ANORO) INHL,ORAL BY ACTIVE MOUTH 6) Non-VA EQINSIOUIPEK47.5/VILANTERO L25MCG 30D INH 1 ACTIVE INHALATION BY [...] AF - Atrial Fibrillation ([facility] [id number]) - rate controlled 2. COPD - Chronic [...] or non-VA provider. /renetta/ Ruba Melchor DNP, AIRPLANE RIGGER-BC, CNL Primary Care Nurse Practitioner Signed: 12/27/2023 15:40 RUBA MELCHOR [place] [facility] [place] [facility] Dec 27, 2023 03:03 PM PREVENTIVE [...] of his/her rights. Suicide Screen: C-SSRS Screening [place]-Suicide Severity Rating Scale (C-SSRS Screener) 1. Over [...] Not worried about housing near future The [place] reports the following: Within the past 12 [...] full rights to use it throughout the [place] system. PRIMARY SCREEN RESULT: The Primary Screen is NEGATIVE. The individual answered never to all forms of IPV above (i.e., answered never to all 5 items) The individual accepts education and/or resources: No EDUCATION: Other: not interested at this time /renetta/ Sy [facility] Cna Gna CAFETERIA ASSISTANT,PRIMARY CARE Signed: 12/27/2023 15:07 SY SARABIA [place] [facility] [facility]
--- OUTSIDE RECORDS SUMMARY | 2024-07-06 15:31 | XMS_ITS | Clinical Summary ---
Author Organization [facility] Address [address] [place] [address] Care Team Providers Care Line Haul Driver Name Role Phone Community, Pcp Primary Care [...] Problems Problem Noted Date Exposure to Agent [place] 10/09/2018 Hyperlipidemia 12/25/2015 Colon polyps 09/21/2013 BPH [...] CANCER SCREENING 03/08/2021 7, 03/08/2016 (External Completion) BMI CHECK/ADVISE 02/19/2024 01/05/2020, , 10/09/2018 (Completed), Additional history exists INFLUENZA (Season Ended) 2024 12/28/2016, 11/19 CHOLESTEROL SCREENING 01/04/2025 01/05/2020 , 10/09/2018, 08/09/2017, Additional history exists HEPATITIS C SCREENING Completed 09/21/2013 PNEUMOCOCCAL VACCINE Completed 02/06/2018, 12/16/19 16 SHINGLES VACCINE Completed 07/17/2018, 03/19/2018 Care Teams Line Haul Driver Relationship Specialty Start Date End Date Community, Pcp PCP - General Internal Medicine 09/23/20
--- OUTSIDE RECORDS SUMMARY | 2024-07-06 15:31 | XMS_ITS | Encounter Summary ---
Author Organization [facility] Address [address] [place] [address] Care Team Providers Care Park Maintenance Technician Name Role Phone Aaliyah Smith MD Primary Care Provider Clarice webster [facility], Pcp Primary Care Provider [place] Encounter Details Date Type Department Care Team Description 01/20/2019 Substitute Teacher Report Medical Records [address] [place] [address] Tanisha Rajan MD Social History Tobacco Use [...] on filedocumented in this encounter Care Teams Park Maintenance Technician Relationship Specialty Start Date End Date Aaliyah Smith MD PCP - General Internal Medicine 01/04/15 09/22/20 Bubba, Pcp PCP - General Internal Medicine 09/23/20 documented as of this encounter
--- OUTSIDE RECORDS SUMMARY | 2024-07-06 15:31 | XMS_ITS | Continuity of Care Document ---
Author Name [facility] Organization [facility] Care Team Providers Care Direct Customer Service Representative Name Role Phone [facility] Unavailable Unavailable Problems Combined list of problems from Department of Defense and Veterans Affairs facilities. It does not include entries that were removed or entered in error. Problem Status Onset Date Problem Type Date of Resolution Comments Source AF - Atrial Fibrillation ([facility] [id number]) Active Condition [facility] Benign prostatic hyperplasia Active Condition [facility] COPD - Chronic Obstructive Pulmonary Disease ([facility] [id number]) Active Condition [facility] [place] [...] Encounter for other administrative examinations Active Diagnosis [facility] Diagnosis: ICD-10-CM 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 [facility] Medications Combined list of outpatient medications from [...] BREATH RESPIR ATORY (INHAL ATION) ACTIVE 02/20/2025 [id number] DAVID MUSA IG P 2024 1 [facility] ALBUTEROL 90MCG/ACTUA T (CFC-F) INHL,ORAL,8 .5GM DOSE COUNTER INHALE 2 PUFFS BY MOUTH EVERY 4 HOURS NEEDED FOR BRONCHOS PASM RESPIR ATORY (INHAL ATION) DISCONT INUED 12/27/2024 [id number] TERRIE DIAZ 2023 1 [facility] ALBUTEROL INHALER INHL,ORAL INHALE BY MOUTH RESPIR ATORY (INHAL ATION) ACTIVE Sebastian MORA 2022 [facility] ATORVASTATI N TAB TAKE BY MOUTH ORAL ACTIVE Sebastian MORA ICHLIDA 2022 [facility] CARBAMIDE PEROXIDE 6.5%/GLYCER IN SOLN,OTIC INSTILL 5 DROPS INTO EACH EAR ONCE 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 (OTIC) 01/26/2024 [id number] [facility] DIAZ 2023 [facility] CARBOXYMETH YLCELLULOSE NA 0.5% SOLN,OPH INSTILL 1 DROP INTO EACH EYE FOUR TIMES DAILY NEEDED FOR DRY EYE OPHTHA LMIC ACTIVE 03/25/2025 [id number] Chioma ALBRECHT NDREW E 2024 15 [facility] CARBOXYMETH YLCELLULOSE NA 0.5% SOLN,OPH INSTILL 1 DROP INTO EACH EYE FOUR TIMES DAILY NEEDED FOR DRY EYES OPHTHA LMIC 05/16/2023 [id number] 4 Sebastian MORA ICHELE 2022 45 [facility] LEVOTHYROXI NE NA 200MCG TAB (SYNTHROID) TAKE ONE TABLET BY MOUTH EVERY MONTH ORAL ACTIVE TERRIE DIAZ 2018 [facility] LEVOTHYROXI NE NA 200MCG TAB (SYNTHROID) TAKE ONE TABLET BY MOUTH EVERY MORNING 30 MINUTES BEFORE BREAKFAS T ORAL ACTIVE TERRIE DIAZ 2017 [facility] MINERAL OIL,LIGHT/P ETROLATUM (PF) OINT,OPH APPLY THIN RIBBON INTO EACH EYE AT BEDTIME FOR DRY EYE OPHTHA LMIC 03/25/2024 [id number] Chioma ALBRECHT NDREW E 2023 3 [facility] OLODATEROL 2.5MCG/TIOT ROPIUM 2.5MCG/ACTU AT INHL,ORAL,6 0D,4GM INHALE 2 PUFFS (1 DOSE) BY MOUTH ONCE DAILY RESPIR ATORY (INHAL ATION) ACTIVE 03/26/2025 [id number] 5 DIMPLE,CHIEF GROWTH OFFICER IG P 2024 3 [facility] OLODATEROL 2.5MCG/TIOT ROPIUM 2.5MCG/ACTU AT INHL,ORAL,6 0D,4GM INHALE 2 PUFFS (1 DOSE) BY MOUTH ONCE DAILY RESPIR ATORY (INHAL ATION) DISCONT INUED 02/21/2025 [id number] DIMPLE,CHIEF GROWTH OFFICER IG P 2024 1 [facility] UMECLIDINIU M 62.5MCG/BRIAN ANTEROL 25MCG/ACTUA T INH,ORAL,30 D INHALE 1 INHALATI ON BY MOUTH ONCE DAILY RESPIR ATORY (INHAL ATION) ACTIVE TERRIE DIAZ 2022 [facility] JONATHON M/VILANTERO L (ANORO) INHL,ORAL INHALE BY MOUTH ONCE DAILY RESPIR ATORY (INHAL ATION) ACTIVE Sebastian MORA 2022 [facility] Immunizations Combined list of available immunizations from the Department of Defense and Veterans Affairs facilities. Immunization Series Date Given Administered By Site Reaction Lot Number CVX Code Drug Grounds Keeper Status Comments Source COVID-19 (MODERNA), MRNA, LNP-S, PF, 100 MCG/0.5 ML DOSE 2 2020 207 complet ed MOD; [id number]; 1 [facility] [...] Dec 27, 2023 03:31 PM Reporting Lab: [facility] [address] [address] Performing Lab: [facility] [address] [facility] HEMOGLOBI N A1C PANEL HEMOGLOBIN A1C/HEMOGLO [...] Dec 27, 2023 03:31 PM Reporting Lab: [facility] [address] Performing Lab: [facility] [address] [facility] CBC LEUKOCYTES [#/VOLUME] IN BLOOD BY AUTOMATED COUNT 7.94 10*3/u L 4.50 - 11.00 12/26 Specimen Type: BLOOD No comment entered. Ordering Provider: MANOLO DIAZ Report Released Date/Time: Dec 27, 2023 03:31 PM Reporting Lab: [facility] [address] Performing Lab: [facility] [address] [facility] CBC ERYTHROCYTE S [#/VOLUME] IN BLOOD BY AUTOMATED COUNT 4.90 10*6/u L 4.23 - 5.66 12/26 Specimen Type: BLOOD No comment entered. Ordering Provider: MANOLO DIAZ Report Released Date/Time: Dec 27, 2023 03:31 PM Reporting Lab: [facility] [place] [place] [address] Performing Lab: [facility] [facility] [address] [facility] [address] [facility] CBC HEMOGLOBIN [MASS/VOLUM E] IN BLOOD 14.7 g/dL 12.8 - 17 12/26 Specimen Type: BLOOD No comment entered. Ordering Provider: MANOLO DIAZ Report Released Date/Time: Dec 27, 2023 03:31 PM Reporting Lab: [facility] [place] [facility] [address] [facility] [address] Performing Lab: [facility] [place] [facility] [address] [facility] [address] [facility] [place] [facility] CBC HEMATOCRIT [VOLUME FRACTION] OF BLOOD BY AUTOMATED COUNT 43.5 39.2 - 50.4 12/26 Specimen Type: BLOOD No comment entered. Ordering Provider: MANOLO DIAZ Report Released Date/Time: Dec 27, 2023 03:31 PM Reporting Lab: [facility] [place] [facility] [address] [facility] [address] Performing Lab: [facility] [place] [facility] [address] [facility] [address] [facility] [place] [facility] CBC MCV [ENTITIC VOLUME] BY AUTOMATED COUNT 88.8 fL 82 - 99 12/26 Specimen Type: BLOOD No comment entered. Ordering Provider: MANOLO DIAZ Report Released Date/Time: Dec 27, 2023 03:31 PM Reporting Lab: [facility] [place] [facility] [address] [facility] [address] Performing Lab: [facility] [place] [facility] [address] [facility] [address] [facility] [place] [facility] CBC MCHC [MASS/VOLUM E] BY AUTOMATED COUNT 33.8 g/dL 30.8 - 35.1 12/26 Specimen Type: BLOOD No comment entered. Ordering Provider: MANOLO DIAZ Report Released Date/Time: Dec 27, 2023 03:31 PM Reporting Lab: [facility] [place] [facility] [address] [facility] [address] Performing Lab: [facility] [place] [facility] [address] [facility] [address] [facility] [place] [facility] CBC PLATELETS [#/VOLUME] IN BLOOD BY AUTOMATED COUNT 263 10*3/u L 140 - 360 12/26 Specimen Type: BLOOD No comment entered. Ordering Provider: MANOLO DIAZ Report Released Date/Time: Dec 27, 2023 03:31 PM Reporting Lab: [facility] [place] [facility] [address] [facility] [address] Performing Lab: [facility] [place] [facility] [address] [facility] [address] [facility] [place] [facility] CBC ERYTHROCYTE DISTRIBUTIO N WIDTH [RATIO] BY AUTOMATED COUNT 13.2 12.0 - 16.0 12/26 Specimen Type: BLOOD No comment entered. Ordering Provider: MANOLO DIAZ Report Released Date/Time: Dec 27, 2023 03:31 PM Reporting Lab: [facility] [place] [facility] [address] [facility] [address] Performing Lab: [facility] [place] [facility] [address] [facility] [address] [facility] [place] CBC MCH [ENTITIC MASS] BY AUTOMATED COUNT 30.0 pg 26.2 - 32.6 12/26 Specimen Type: BLOOD No comment entered. Ordering Provider: MANOLO DIAZ Report Released Date/Time: Dec 27, 2023 03:31 PM Reporting Lab: [facility] [place] [facility] [address] [facility] [address] Performing Lab: [facility] [place] [facility] [address] [facility] [address] [facility] [place] [facility] BASIC METABOLIC PANEL (non-fast ing) UREA NITROGEN [MASS/VOLUM E] IN SERUM OR PLASMA 17 mg/dL 7 - 25 12/26 Specimen Type: SERUM No comment entered. Ordering Provider: MANOLO DIAZ Report Released Date/Time: Dec 27, 2023 03:31 PM Reporting Lab: [facility] [place] [facility] [address] [facility] [address] Performing Lab: [facility] [place] [facility] [address] [facility] [address] [facility] [place] [facility] BASIC METABOLIC PANEL (non-fast ing) GLUCOSE [MASS/VOLUM E] IN SERUM OR PLASMA 89 mg/dL 65 - 100 12/26 Specimen Type: SERUM No comment entered. Ordering Provider: MANOLO DIAZ Report Released Date/Time: Dec 27, 2023 03:31 PM Reporting Lab: [facility] [address] [facility] [address] Performing Lab: [facility] [address] [facility] BASIC METABOLIC PANEL (non-fast ing) SODIUM [MOLES/VOLU ME] IN SERUM OR PLASMA 140 mmol/L 135 - 145 12/26 Specimen Type: SERUM No comment entered. Ordering Provider: MANOLO DIAZ Report Released Date/Time: Dec 27, 2023 03:31 PM Reporting Lab: [facility] [place] [facility] [address] [facility] [address] Performing Lab: [facility] [address] [address] [facility] BASIC METABOLIC PANEL (non-fast ing) POTASSIUM [MOLES/VOLU ME] IN SERUM OR PLASMA 4.0 mmol/L 3.5 - 5.0 12/26 Specimen Type: SERUM No comment entered. Ordering Provider: MANOLO DIAZ Report Released Date/Time: Dec 27, 2023 03:31 PM Reporting Lab: [facility] [place] [facility] [address] [facility] [address] Performing Lab: [facility] [address] [facility] [address] [facility] BASIC METABOLIC PANEL (non-fast ing) CHLORIDE [MOLES/VOLU ME] IN SERUM OR PLASMA 107 mmol/L 100 - 110 12/26 Specimen Type: SERUM No comment entered. Ordering Provider: MANOLO DIAZ Report Released Date/Time: Dec 27, 2023 03:31 PM Reporting Lab: [address] [address] Performing Lab: [phone] [place] [address] BASIC METABOLIC PANEL (non-fast ing) CARBON DIOXIDE, TOTAL [MOLES/VOLU ME] IN SERUM OR PLASMA 23 meq/L 20 - 30 12/26 Specimen Type: SERUM No comment entered. Ordering Provider: MANOLO DIAZ Report Released Date/Time: Dec 27, 2023 03:31 PM Reporting Lab: [address] [address] Performing Lab: [phone] [place] [address] BASIC METABOLIC PANEL (non-fast ing) CREATININE [MASS/VOLUM E] IN SERUM OR PLASMA 0.96 mg/dL 0.50 - 1.40 12/26 Specimen Type: SERUM No comment entered. Ordering Provider: MANOLO DIAZ Report Released Date/Time: Dec 27, 2023 03:31 PM Reporting Lab: [address] [address] Performing Lab: [address] [address] [facility] BASIC METABOLIC PANEL (non-fast ing) GLOMERULAR FILTRATION RATE/1.73 SQ M.PREDICTED [VOLUME RATE/AREA] IN SERUM, PLASMA OR BLOOD BY CREATININE- BASED FORMULA (CKD-EPI 2020) 81 mL/min 60 12/26 Specimen Type: SERUM No comment entered. Ordering Provider: MANOLO DIAZ Report Released Date/Time: Dec 27, 2023 03:31 PM Reporting Lab: [facility] [place] [facility] [address] [facility] [address] Performing Lab: [facility] [place] [facility] [address] [facility] [address] [facility] [place] [facility] LIVER FUNCTION PROTEIN [MASS/VOLUM E] IN SERUM OR PLASMA 6.4 g/dL 6.0 - 8.3 12/26 Specimen Type: SERUM No comment entered. Ordering Provider: MANOLO DIAZ Report Released Date/Time: Dec 27, 2023 03:31 PM Reporting Lab: [facility] [place] [facility] [address] [facility] [address] Performing Lab: [facility] [place] [facility] [address] [facility] [address] [facility] LIVER FUNCTION ALBUMIN [MASS/VOLUM E] IN SERUM OR PLASMA 3.8 g/dL 3.5 - 5.0 12/26 Specimen Type: SERUM No comment entered. Ordering Provider: MANOLO DIAZ Report Released Date/Time: Dec 27, 2023 03:31 PM Reporting Lab: [facility] [place] [facility] [address] [facility] [address] Performing Lab: [facility] [place] [facility] [address] [facility] [address] [facility] [place] [facility] LIVER FUNCTION ALKALINE PHOSPHATASE [ENZYMATIC ACTIVITY/VO LUME] IN SERUM OR PLASMA 56 U/L 40 - 150 12/26 Specimen Type: SERUM No comment entered. Ordering Provider: MANOLO DIAZ Report Released Date/Time: Dec 27, 2023 03:31 PM Reporting Lab: [facility] [place] [facility] [address] [facility] [address] Performing Lab: [facility] [place] [facility] [address] [facility] [address] [facility] LIVER FUNCTION ASPARTATE AMINOTRANSF ERASE [ENZYMATIC ACTIVITY/VO LUME] IN SERUM OR PLASMA 18 U/L 5 - 34 12/26 Specimen Type: SERUM No comment entered. Ordering Provider: MANOLO DIAZ Report Released Date/Time: Dec 27, 2023 03:31 PM Reporting Lab: [facility] [place] [facility] [address] [facility] [address] Performing Lab: [facility] [place] [facility] [address] [facility] [address] [facility] LIVER FUNCTION ALANINE AMINOTRANSF ERASE [ENZYMATIC ACTIVITY/VO LUME] IN SERUM OR PLASMA 15 U/L 12/26 Specimen Type: SERUM No comment entered. Ordering Provider: MANOLO DIAZ Report Released Date/Time: Dec 27, 2023 03:31 PM Reporting Lab: [facility] [place] [address] [address] Performing Lab: [facility] [place] [address] [address] [facility] LIVER FUNCTION BILIRUBIN.T OTAL [MASS/VOLUM E] IN SERUM OR PLASMA 0.6 mg/dL 0.2 - 1.2 12/26 Specimen Type: SERUM No comment entered. Ordering Provider: MANOLO DIAZ Report Released Date/Time: Dec 27, 2023 03:31 PM Reporting Lab: [facility] [place] [address] [address] Performing Lab: [facility] [place] [facility] [address] [facility] [address] [facility] LIPID PANEL, NON FASTING CHOLESTEROL [MASS/VOLUM E] IN SERUM OR PLASMA 153 mg/dL 12/26 Specimen Type: SERUM No comment entered. Ordering Provider: MANOLO DIAZ Report Released Date/Time: Dec 27, 2023 03:31 PM Reporting Lab: [facility] [place] [facility] [address] [facility] [address] Performing Lab: [facility] [place] [address] [address] [facility] [place] [facility] LIPID PANEL, NON FASTING TRIGLYCERID E [MASS/VOLUM E] IN SERUM OR PLASMA 105 mg/dL 0 - 150 12/26 Specimen Type: SERUM No comment entered. Ordering Provider: MANOLO DIAZ Report Released Date/Time: Dec 27, 2023 03:31 PM Reporting Lab: [facility] [address] [address] Performing Lab: [facility] [address] [address] [facility] LIPID PANEL, NON FASTING CHOLESTEROL IN LDL [MASS/VOLUM E] IN SERUM OR PLASMA BY CALCULATION 86 mg/dL 0 - 129 12/26 Specimen Type: SERUM No comment entered. Ordering Provider: MANOLO DIAZ Report Released Date/Time: Dec 27, 2023 03:31 PM Reporting Lab: [address] [address] Performing Lab: [address] [address] [facility] LIPID PANEL, NON FASTING CHOLESTEROL .TOTAL/CHOL ESTEROL IN HDL [MASS RATIO] IN SERUM OR PLASMA 3.3 12/26 Specimen Type: SERUM No comment entered. Ordering Provider: MANOLO DIAZ Report Released Date/Time: Dec 27, 2023 03:31 PM Reporting Lab: [address] [address] Performing Lab: [facility] [address] [address] [facility] LIPID PANEL, NON FASTING CHOLESTEROL IN HDL [MASS/VOLUM E] IN SERUM OR PLASMA 46 mg/dL 40 - 60 12/26 Specimen Type: SERUM No comment entered. Ordering Provider: MANOLO DIAZ Report Released Date/Time: Dec 27, 2023 03:31 PM Reporting Lab: [address] [address] Performing Lab: [address] [place] [address] [facility] Vital Signs Combined list of inpatient and outpatient Vital Signs from Department of Defense and Veterans Affairs, ranging from 12 months to all on record, depending upon the facility. Vital Sign Value Date Comments Source SYSTOLIC BLOOD PRESSURE 132 01/10/20 13:41:12 [facility] DIASTOLIC BLOOD PRESSURE 78 024 13:41:12 [facility] PULSE 55 01/10/2024 13:41:12 [facility] SYSTOLIC BLOOD PRESSURE 180 12/27/19 24 14:56:45 [facility] DIASTOLIC BLOOD PRESSURE 92 14:56:45 [facility] PULSE [...] Disposition Source [facility] Outpatient Encounter [id number] 12/24 [facility] En[facility] [id number] 12/25 [facility] OFFICE O/P EST MOD 30-39 MIN [id number] Diagnos is: ICD-10- CM D48.5 Neoplas m of uncerta in behavio r of skin GABRIELLA ALVARADO 01/01 [facility] En[facility] [id number] MARIAMA TEE MD 01/07 [facility] Out[facility] Encounter [id number] Diagnos is: ICD-10- CM Z02.89 Encount er for other adminis trative examina tions ASHLEY MUELLER 01/24 [facility] Encounter [id number] Diagnos is: ICD-10- CM Z02.89 Encount er for other adminis trative examina tions ASHLEY MUELLER 03/14 [facility] COMPRE OPH EXAM EST PT 1/ [id number] Diagnos is: ICD-10- CM H40.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 DOMINIC ALBRECHT 03/25 [facility] FIT SPECTACLES MULTIFOCAL [id number] Diagnos is: ICD-10- CM Z46.0 Encount er for fit/adj st of spectac les and contact lenses DOMINIC ALBRECHT 03/26 [facility] Out[facility] Encounter [id number] TAYLOR PORRAS ISTOP E 05/13 [facility] Out[facility] Encounter [id number] 05/14 [facility] En[facility] [id number] 05/15 [facility] En[facility] [id number] 07/01 [facility] Encounter [id number] Diagnos is: ICD-10- CM Z02.89 Encount er for other adminis trative examina tiASHLEY Chávez 07/03 [facility] En[facility] [id number] 07/10 [facility] [id number] 10/27 [facility] [id number] 11/04 [facility] [id number] 11/28 [facility] [id number] 12/22 [facility] Outpatient Encounter [id number] 12/25 [facility] OFFICE O/P EST MOD 30 MIN [id number] Diagnos is: ICD-10- CM Z86.018 Persona l history of other benign neoplas GABRIELLA Piper 12/25 [facility] OFFICE O/P EST MOD 30 MIN [id number] Diagnos is: ICD-10- CM I48.91 Unspeci fied atrial fibrill ation Terri DIAZ 12/26 [facility] OFF/OP EST MAY X REQ PHY/QHP [id number] 1. Diagnos is: ICD-10- CM H61.23 Impacte d usama , NIRMAL Lugo 01/09 [facility] En[facility] [id number] 1.01/09 [facility] [id number] 02/19 [facility] [id number] 03/24 [facility] EXTENDED VISUAL FIELD XM [id number] Diagnos is: ICD-10- CM H40.013 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, low risk, bilDOMINIC Goldstein 03/24 [facility] [place]TRZ[place] [id number] Diagnos is: ICD-10- CM H40.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 DOMINIC ALBRECHT E 03/24 [facility] COMPRE OPH EXAM EST PT 1/ [id number] Diagnos is: ICD-10- CM H04.123 Dry eye syndrom e of bilater al lacrima l glands DOMINIC ALBRECHT E 03/24 [facility] FIT SPECTACLES MULTIFOCAL [id number] Diagnos is: ICD-10- CM Z46.0 Encount er for fit/adj st of spectac les and contact lenses DOMINIC ALBRECHT E 03/25 [facility] Outpatient Encounter [id number] 04/02 [facility] Outpatient Encounter [id number] NIRMAL TOM 06/15 [facility] [place] Social History Combined list of available smoking, tobacco, and other social history from Department of Defense and Veterans Affairs facilities. Social History Type Response Date Comment Sour e Tobacco smoking status NHIS VA-TOBACCO FORMER USER 12/27/2023 [facility] History of tobacco use VA-TOBACCO QUIT 15 YRS OR MORE 12/27/2023 [facility] History of tobacco use VA-TOBACCO NEVER USED 05/25/2022 [facility] History of tobacco use VA-TOBACCO FORMER USER 05/19/2021 [facility] [place] [facility] History of tobacco use [place]-TOBACCO FORMER USER 03/24/2020 [facility] [place] [facility] History of tobacco use QUIT TOBACCO USE > 7 YEARS AGO 09/17/2017 [facility] [place] [facility]
--- OUTSIDE RECORDS SUMMARY | 2024-07-06 15:31 | XMS_ITS | Encounter Summary ---
Author Organization [facility] Address [address] [place] [address] Care Team Providers Care Overhead Distribution Engineer Name Role Phone Pcp, Janeen Primary Care Provider Unavailabl e Unknown Primary Care Provider [phone] Aaliyah Carrillo MD Primary Care Provider [phone] Encounter Details Date Type Department Care Team (Late st Contact Info) Description 12/27/2020 Scanned Document [facility] Pulmonary and Critical Care[address] [phone] Pulmonary, Scan Social History Tobacco [...] on filedocumented in this encounter Care Teams Overhead Distribution Engineer Relationship Specialty Start Date End Date Pcp, No PCP - General General Medicine 12/19/20 04/14/23 Unknown Unknow Provider Address PCP - General 04/16/23 06/11/23 Aaliyah Carrillo MD [address] [place] [phone] PCP - General Internal Medicine 06/12/23 Aaliyah Carrillo 57 [facility], [address] [address] Primary Care Provider Internal Medicine 04/15/23 Aaliyah Carrillo [address] [place] [address], [place] [address], [place] [address] Primary Care Provider Internal Medicine 04/15/23 Benji Hardwick [address] [place] [address]?? [place] [address] Physician Pulmonary Medicine 04/15/23 documented as of this encounter
--- OUTSIDE RECORDS SUMMARY | 2024-07-06 15:31 | XMS_ITS | Encounter Summary ---
Author Organization [facility] Address [address] [place] [address] Care Team Providers Care Alarm Security Or Surveillance Monitor Name Role Phone Ricky West MD Primary Care Provider Unavail Aaliyah Yanez MD Primary Care Provider Clarice webster [facility], Pcp Primary Care Provider Manuel shore Encounter Details Date Type Department Care Team Description 01/29/2014 Hospital Medical Records [address] [place] [address] Bhanu Jewell DPM Social History Tobacco Use Types Packs/Day Years [...] on filedocumented in this encounter Care Teams Alarm Security Or Surveillance Monitor Relationship Specialty Start Date End Date Ricky West MD PCP - General Internal Medicine 01/02/13 01/03/15 Aaliyah Smith MD PCP - General Internal Medicine 01/04/15 09/22/20 [facility], Pcp PCP - General Internal Medicine 09/23/20 documented as of this encounter
--- OUTSIDE RECORDS SUMMARY | 2024-07-06 15:31 | XMS_ITS | Clinical Summary ---
Author Organization [email or web address] Address [address] [facility] 7t [place] [address] Care Team Providers Care Health Physics Technician Name Role Phone Unavailable Primary Care Provider [...] patient's age to complete this topic Meningococcal B Vaccine Aged Out No l onger eligible based on patient's age to complete [...]
--- OUTSIDE RECORDS SUMMARY | 2024-07-06 15:31 | XMS_ITS | Clinical Summary ---
Author Organization [facility] Address [address] [place], [place] [address] Care Team Providers Care Cosmetic Manager Name Role Phone Aaliyah Carrillo MD Primary Care Provider [phone] Allergies No known active allergies Medications Medication [...] age to complete this topic Care Teams Cosmetic Manager Relationship Specialty Start Date End Date Aaliyah Carrillo MD PCP - General Internal Medicine 08/24/19
--- OUTSIDE RECORDS SUMMARY | 2024-07-06 15:31 | XMS_ITS | Encounter Summary ---
Author Organization [facility] Address [address] [place] [address] Care Team Providers Care Circular Saw Operator Name Role Phone Ricky West MD Primary Care Provider Aaliyah Jefferson MD Primary Care Provider Clarice Mac, Pcp Primary Care Provider Manuel shore Encounter Details Date Type Department Care Team Description 06/18/2014 Brick Mason Report Medical Records [address] [place] [address] Milo Park MD Social History Tobacco Use Types Packs/Day [...] on filedocumented in this encounter Care Teams Circular Saw Operator Relationship Specialty Start Date End Date Ricky West MD PCP - General Internal Medicine 01/02/13 01/03/15 Aaliyah Smith MD PCP - General Internal Medicine 01/04/15 09/22/20 [facility], Pcp PCP - General Internal Medicine 09/23/20 documented as of this encounter
--- OUTSIDE RECORDS SUMMARY | 2024-07-06 15:31 | XMS_ITS | Encounter Summary ---
Author Organization [facility] Address [address] [place] [address] Care Team Providers Care Electron Beam Operator Name Role Phone Aaliyah Smith MD Primary Care Provider Clarice webster [facility], Pcp Primary Care Provider Manuel shore Encounter Details Date Type Department Care Team Description 09/02/2019 Entry Manager Report Medical Records [address] [place], [place] [phone] [place] [address], [facility] Social History Tobacco Use Types Packs/Day Years [...] on filedocumented in this encounter Care Teams Electron Beam Operator Relationship Specialty Start Date End Date Aaliyah Smith MD PCP - General Internal Medicine 01/04/15 09/22/20 [facility], Pcp PCP - General Internal Medicine 09/23/20 documented as of this encounter
--- OUTSIDE RECORDS SUMMARY | 2024-07-06 15:31 | XMS_ITS ---
Author Name [facility] [place] [facility] [place] [facility] [facility] [place] Address [address] [place] [address] Care Team Providers Care Last Trimmer Name Role Phone TERRIE DIAZ Primary Care [...] Cardenas's Name Patient's Relationship to Policy Cardenas [facility] MEDICARE SUPPLEMEN VEL MEDEX BRONZ E Mar 21, 2011 [id number] Katlyn BELLO PATIENT [facility] MEDICARE SUPPLEMEN VEL MEDEX BRONZ E Mar 21, 2011 [id number] Katlyn BELLO PATIENT MEDICARE (WNR) MEDICARE (M) PART A Dec 19, 2008 PART A [id number] Katlyn BELLO PATIENT MEDICARE (WNR) MEDICARE (M) PART B Dec 19, 2008 PART B [id number] Katlyn BELLO PATIENT Selected Encounter This section includes the information on record at [place] for the Encounter. Date/Time Encounter Type Encounter Description Reason Provider Source Jan 10, 2024 01:00 PM OFF/OP EST MAY X REQ PHY/QHP PRIMARY CARE/MEDICINE ICD-10-CM H61.23 Impacted cerumen, bilateral ZANVETTOR,YUNI SSA IHE Encounter Template Text not used by [place] Assessments - Encounter Diagnoses This section includes the primary and secondary diagnoses documented for the Encounter. Date/Time Primary/Secondary Diagnosis Diagnosis Name Provider Source Jan 31, 2024 11:31 AM PRIMARY Impacted cerumen, bilateral ZANVETTOR,YUNI SSA [facility] Plan of Treatment: Future Appointments (+ 6 months) and Future Tests (+/- 45 days) The Plan of Treatment section includes future care activities for the patient from all [place] [facility] This section includes future appointments and future orders which are active, pending or scheduled. Future Appointments This section includes appointments that were scheduled to occur 6 months from the date of the Encounter, up to a maximum of 20 appointments. The data comes from all [place] treatment facilities. Appointment Date/Time Appointment Type Appointme nt Facility Name Feb 20, 2024 04:40 PM [facility] Mar 24, 2024 09:30 AM [facility] Mar 24, 2024 09:45 AM [facility] Mar 24, 2024 10:00 AM AMBULATORY MEDICINE [facility] Lab Results: +/- 30 days of the [...] Type Comment Dec 27, 2023 03:37 PM [facility] TSH SERUM Specimen Type: SERUM No comment entered. Ordering Provider: TERRIE DIAZ Report Released Date/Time: Dec 27, 2023 03:31 PM Reporting Lab: [address] [address] Performing Lab: [facility] [address] [facility] [address] TSH 0.08 u[IU]/mL L 0.35-5.00 Dec 27, 2023 03:37 PM [facility] HEMOGLOBIN A1C PANEL BLOOD Specimen Type: BLO OD Comment: Values obtained from A1C measurements can vary. For atypical A1C assays, a reported value of 7.0 could actually be between 6.72 and 7.28 if measured by a reference method. A reported value of 9.0 could actually be between 8.73 and 9.27. Ref: http://www.ngsp.org/CAPdata.asp Ordering Provider: TERRIE DIAZ Report Released Date/Time: Dec 27, 2023 03:31 PM Reporting Lab: [address] [address] Performing Lab: [address] [address] HEMOGLOBIN A1C 5.2 4.0-5.6 Dec 27, 2023 03:37 PM [facility] CBC BLOOD Specimen Type: BLOOD No comment entered. Ordering Provider: TERRIE DIAZ Report Released Date/Time: Dec 27, 2023 03:31 PM Reporting Lab: [address] [address] Performing Lab: [address] [address] WBC 7.94 10*3/uL 4.50-11.00 RBC 4.90 10*6/uL 4.23-5.66 HGB 14.7 g/dL 12.8-17 HCT 43.5 39.2-50.4 MCV 88.8 fL 82-99 MCHC 33.8 g/dL 30.8-35.1 PLT 263 10*3/uL 140-360 RDW-CV 13.2 12.0-16.0 MCH 30.0 pg 26.2-32.6 Dec 27, 2023 03:37 PM [facility] LIVER FUNCTION SERUM Specimen Type: SERUM No comment entered. Ordering Provider: TERRIE DIAZ Report Released Date/Time: Dec 27, 2023 03:31 PM Reporting Lab: [facility] [address] [facility] [address] Performing Lab: [facility] [address] [facility] [address] PROTEIN,TOTAL 6.4 g/dL 6.0-8.3 ALBUMIN 3.8 g/dL 3.5-5.0 ALKALINE PHOSPHATASE 56 U/L 40-150 AST 18 U/L 5-34 ALT 15 U/L BILIRUBIN, TOTAL 0.6 mg/dL 0.2-1.2 Dec 27, 2023 03:37 PM [facility] BASIC METABOLIC PANEL (non-fasting) SERUM Spe cimen Type: SERUM No comment entered. Ordering Provider: TERRIE DIAZ Report Released Date/Time: Dec 27, 2023 03:31 PM Reporting Lab: [facility] [address] [facility] [address] Performing Lab: [facility] [address] [facility] [address] UREA NITROGEN 17 mg/dL 7-25 GLUCOSE 89 mg/dL 65-100 SODIUM 140 mmol/L 135-145 POTASSIUM 4.0 mmol/L 3.5-5.0 CHLORIDE 107 mmol/L 100-110 CO2 23 meq/L 20-30 CREATININE, Serum 0.96 mg/dL 0.50-1.40 eGFR(CKD-EPI 2020) 81 mL/min >60 Dec 27, 2023 03:37 PM [facility] LIPID PANEL, NON FASTING SERUM Specimen Type: SERUM No comment entered. Ordering Provider: TERRIE DIAZ Report Released Date/Time: Dec 27, 2023 03:31 PM Reporting Lab: [facility] [address] [facility] [address] Performing Lab: [address] [address] CHOLESTEROL 153 mg/dL TRIGLYCERIDE 105 mg/dL 0-150 [...] 55 132/78 [place] [facility] [place] [facility] Social History: Smoking Status (Most current) and [...] 2023 03:00 PM [place] [facility] [place] [facility] Tobacco Use History This section includes a history of the smoking, or tobacco-related health factors, that were collected on or before the date of the Encounter. The data comes from the [place] facility where the Encounter took place. Date/Time Smoking Status/Tobacco Use Comment F acility Dec 27, 2023 03:00 PM VA-TOBACCO QUIT 15 YRS OR MORE [place] [facility] [place] [facility] May 25, 2022 01:30 PM VA-TOBACCO NEVER USED [place] [facility] [place] [facility] May 19, 2021 02:00 PM VA-TOBACCO FORMER USER [place] [facility] [facility] May 19, 2021 02:00 PM VA-TOBACCO QUIT 15 YRS OR MORE [place] [facility] [place] [facility] Mar 24, 2020 08:36 AM VA-TOBACCO FORMER USER [place] [facility] [facility] Mar 24, 2020 08:36 AM VA-TOBACCO QUIT 15 YRS OR MORE [place] [facility] [place] [facility] Sep 17, 2017 02:25 PM QUIT TOBACCO USE > 7 YEARS AGO [place] [facility] [place] [facility] Encounter Notes: All associated encounter notes This section contains the clinical notes associated to the Encounter. Date/Time Encounter Note(s) Provider Source Jan 10, 2024 01:13 PM PRIMARY CARE OUTPA TIENT NOTE: LOCAL TITLE: AMBULATORY/OUTPATIENT CARE NOTE STANDARD TITLE: PRIMARY CARE OUTPATIENT NOTE DATE OF NOTE: JAN 10, 2024@13:13 ENTRY DATE: JAN 10, 2024@13:13:06 AUTHOR: JOANA TOM EXP COSIGNER: URGENCY: STATUS: COMPLETED F: Nursing [...] guard, watchful, or easily startled? YES 5. [place] numb or detached from people, activities, or your surroundings? NO 6. [place] guilty or unable to stop blaming yourself [...] RN Signed: 01/10/2024 13:44 JOANA TOM [facility]
--- OUTSIDE RECORDS SUMMARY | 2024-07-06 15:31 | XMS_ITS | Encounter Summary ---
Author Organization [facility] Address [address] [place] [address] Care Team Providers Care Passenger Interline Clerk Name Role Phone Aaliyah Smith MD Primary Care Provider Clarice webster [facility], Pcp Primary Care Provider Manuel shore Encounter Details Date Type Department Care Team Description 12/20/2015 Zika Virus Medical Records [address] [place] [id number] Abstract, Provider Social History Tobacco Use Types [...] on filedocumented in this encounter Care Teams Passenger Interline Clerk Relationship Specialty Start Date End Date Aaliyah Smith MD PCP - General Internal Medicine 01/04/15 09/22/20 [facility], Pcp PCP - General Internal Medicine 09/23/20 documented as of this encounter
--- OUTSIDE RECORDS SUMMARY | 2024-07-06 15:31 | XMS_ITS | Encounter Summary ---
Author Organization [facility] Address [address] [place] [address] Care Team Providers Care Wire Web Worker Name Role Phone Ricky West MD Primary Care Provider Unavail able Aaliyah Smith MD Primary Care Provider Clarice Mac, Pcp Primary Care Provider Manuel shore Encounter Details Date Type Department Care Team Description 07/08/2013 Release of Information Medical Records [address] [place] [address] Abstract, Provider Social History Tobacco Use Types [...] on filedocumented in this encounter Care Teams Wire Web Worker Relationship Specialty Start Date End Date Ricky West MD PCP - General Internal Medicine 01/02/13 01/03/15 Aaliyah Smith MD PCP - General Internal Medicine 01/04/15 09/22/20 [facility], Pcp PCP - General Internal Medicine 09/23/20 documented as of this encounter
--- OUTSIDE RECORDS SUMMARY | 2024-07-06 15:31 | XMS_ITS | Encounter Summary ---
Author Organization [facility] Address [address] [place] [address] Care Team Providers Care Principal Librarian Name Role Phone Aaliyah Smith MD Primary Care Provider Clarice webster [facility], Pcp Primary Care Provider Manuel shore Encounter Details Date Type Department Care Team Description 11/07/2019 [facility] Medical Records [address] [place] [address] Abstract, Provider Social History Tobacco Use Types [...] on filedocumented in this encounter Care Teams Principal Librarian Relationship Specialty Start Date End Date Aaliyah Smith MD PCP - General Internal Medicine 01/04/15 09/22/20 [facility], Pcp PCP - General Internal Medicine 09/23/20 documented as of this encounter
--- OUTSIDE RECORDS SUMMARY | 2024-07-06 15:31 | XMS_ITS | Encounter Summary ---
Author Organization [facility] Address [address] [place] [address] Care Team Providers Care Regional Program Manager Name Role Phone Aaliyah Smith MD Primary Care Provider Clarice [facility], Pcp Primary Care Provider Unavailwilmer shore Reason for Visit * Reason Onset Date Comments refill request 04/22/2018 Encounter Details Date Type Department Care Team Description 04/22/2018 Telephone Medicine/Pediatrics - [address] [phone] Aaliyah Smith MD refill request Social History [...] / Plan: [place] / Product Type: MEDICARE [id number] documented in this encounter Plan of Treatment Not on file documented as of this encounter Visit Diagnoses Not on filedocumented in this encounter Care Teams Regional Program Manager Relationship Specialty Start Date End Date Aaliyah Smith MD PCP - General Internal Medicine 01/04/15 09/22/20 [facility] Pcp PCP - General Internal Medicine 09/23/20 documented as of this encounter
--- OUTSIDE RECORDS SUMMARY | 2024-07-06 15:31 | XMS_ITS | Encounter Summary ---
Author Organization [facility] Address [address] [place] [address] Care Team Providers Care Life Science Research Assistant Name Role Phone Ricky West MD Primary Care Provider Unavail Aaliyah Yanez MD Primary Care Provider Clarice [facility], Pcp Primary Care Provider Unavailabl e Reason for Visit * Reason Onset Date Comments Call-returning From Provider 07/01/2013 Encounter Details Date Type Department Care Team Description 07/01/2013 Telephone Medicine/Pediatrics - [address] [phone] Ricky West MD Call-returning From Provider Social History Tobacco Use Types Packs/Day Years Used Date Smoking Tobacco: Former Cigarettes 1 5 Smokeless Tobacco: Never Comments:quit 46 years ago Alcohol Use Standard Drinks/Week Comments No 0 (1 standard drink = 0.6 oz pur e alcohol) Sex Assigned at Date Recorded Not on file documented as of this encounter Miscellaneous Notes * Telephone Encounter - Ricky West MD - 07/02/2013 2:34 PM EDT I spoke to the patient in review the blood test. I told him that that the CAT scan findings are stable but that we should repeat a CT in about 4 months. I will for a copy to his steam shovel operating engineer and the patient has a followup appointment in August or September with his steam shovel operating engineer, Dr. Jarvis. * Telephone Encounter - Ricky West MD - 07/01/2013 5:22 PM EDT I left a message for the patient call us back. * Telephone Encounter - Marilyn Diaz Rn - 07/01/2013 11:41 AM EDT Pt called ,he will be available until 12;30 , and will return after -3pm Can be reached at above * Telephone Encounter - Marilyn Diaz Rn - 07/01/2013 10:07 AM EDT Message left for pt to call, and speak to triage, * Telephone Encounter - Andrew Stanley - 07/01/2013 8:41 AM EDT Pt received a call from Dr West and is returning his call. He is asking for a call back documented in this encounter Plan of Treatment Not on file documented as of this encounter Visit Diagnoses Diagnosis Pulmonary nodules- Primary Other nonspecific abnormal finding of lung field documented in this encounter Care Teams Life Science Research Assistant Relationship Specialty Start Date End Date Ricky West MD PCP - General Internal Medicine 01/02/13 01/03/15 Aaliyah Smith MD PCP - General Internal Medicine 01/04/15 09/22/20 [facility], Pcp PCP - General Internal Medicine 09/23/20 documented as of this encounter
--- OUTSIDE RECORDS SUMMARY | 2024-07-06 15:31 | XMS_ITS | Encounter Summary ---
Author Name [facility] [place] [facility] [place] [facility] [place] Address [address] [place] [address] Care Team Providers Care It Desktop Support Technician Name Role Phone TERRIE DIAZ Primary Care [...] [facility] MEDICARE SUPPLEMEN VEL MEDEX BRON E Mar 21, 2011 [id number] Katlyn BELLO PATIENT [facility] MEDICARE SUPPLEMEN VEL MEDEX BRONZ E Mar 21, 2011 [id number] Katlyn BELLO PATIENT MEDICARE (WNR) MEDICARE (M) PART A Dec 19, 2008 PART A [id number] Katlyn BELLO PATIENT MEDICARE (WNR) MEDICARE (M) PART B Dec 19, 2008 PART B [id number] Katlyn BELLO PATIENT Selected Encounter This section includes the information on record at [place] for the Encounter. Date/Time Encounter Type Encounter Description Reason Provider Source Mar 24, 2024 09:30 AM EXTENDED VISUAL FIELD XM OPTOMETRY ICD-10-CM H40.013 Open angle with borderline findings, low risk, bilateral SABINA ALBRECHT Eddy Encounter Template Text not used by [place] Assessments - Encounter Diagnoses This section includes the primary and secondary diagnoses documented for the Encounter. Date/Time Primary/Secondary Diagnosis Diagnosis Name Provider Source Apr 29, 2024 04:05 PM PRIMARY Open angle with borderline findings, low risk, bilateral [facility] [place] [facility] Social History: Smoking Status (Most [...] 27, 2023 03:00 PM [facility]ACCO [facility] Tobacco Use History This section includes a history of the smoking, or tobacco-related health factors, that were collected on or before the date of the Encounter. The data comes from the [place] facility where the Encounter took place. Date/Time Smoking Status/Tobacco Use Comment F acility Dec 27, 2023 03:00 PM VA-TOBACCO QUIT 15 YRS OR MORE [place] [facility] [place] [facility] May 25, 2022 01:30 PM VA-TOBACCO NEVER USED [place] [facility] [place] [facility] May 19, 2021 02:00 PM VA-TOBACCO FORMER USER [place] [facility] [place] [facility] May 19, 2021 02:00 PM VA-TOBACCO QUIT 15 YRS OR MORE [place] [facility] [place] [facility] Mar 24, 2020 08:36 AM VA-TOBACCO FORMER USER [place] [facility] [place] [facility] Mar 24, 2020 08:36 AM VA-TOBACCO QUIT 15 YRS OR MORE [place] [facility] [place] [facility] Sep 17, 2017 02:25 PM QUIT TOBACCO USE > 7 YEARS AGO [place] [facility] [place] [facility] Encounter Notes: All associated encounter [...] and clinical findings were reviewed with student biology internship and patient and results are in this note. Assessment and plan are reasonable. Patient remains low risk open-angle glaucoma suspect OU. Follow-up as scheduled for today. /renetta/ SABINA ALBRECHT OD STAFF FLOOR BROKER Signed: 03/24/2024 12:00 SABINA ALBRECHT [place] [facility] Mar 24, 2024 10:57 AM OPTOMETRY [...] risk, bilateral - First field today with hij false positives OU - Clean and Stable OCT RNFL OU - Pt. ed on findings - Monitor in 1 year Results were viewed and clinical findings were reviewed with student biology internship and patient and results are in this note. Assessment and plan are reasonable. Patient remains low risk open-angle glaucoma suspect OU. Follow-up as scheduled for today. /chayo BANKS OPTOMETRY STUDENT Signed: 03/24/2024 11:54 /renetta/ SABINA ALBRECHT OD STAFF FLOOR BROKER Cosigned: 03/24/2024 11:59 SABINA BANKS [facility]
--- OUTSIDE RECORDS SUMMARY | 2024-07-06 15:31 | XMS_ITS | Encounter Summary ---
Author Organization [facility] Address [address] [place] [address] Care Team Providers Care Staff Electronic Warfare Officer Name Role Phone Aaliyah Smith MD Primary Care Provider Clarice Mac, Pcp Primary Care Provider Manuel shore Encounter Details Date Type Department Care Team Description 01/05/2020 Telephone Medicine/Pediatrics - [address] [phone] Ary Kahn PA-C [address] [place] [id number] Social History Tobacco Use Types Packs/Day Years [...] Johnson M.A. - 01/08/2020 1:49 PM EST [phone] lvm for pt to return call. * Telephone Encounter - Maria De Jesus Ragland - 01/07/2020 4:48 PM EST Pt reurned call please call back at [phone] * Telephone Encounter - Jeanie To M.A. [...] on filedocumented in this encounter Care Teams Staff Electronic Warfare Officer Relationship Specialty Start Date End Date Aaliyah Smith MD PCP - General Internal Medicine 01/04/15 09/22/20 [facility], Pcp PCP - General Internal Medicine 09/23/20 documented as of this encounter
--- OUTSIDE RECORDS SUMMARY | 2024-07-06 15:32 | XMS_ITS | Encounter Summary ---
Author Organization [facility] Address [address] [place] [address] Care Team Providers Care Coat Joiner Name Role Phone Ricky West MD Primary Care Provider Unavail Aaliyah Yanez MD Primary Care Provider Clarice Mac, Pcp Primary Care Provider Manuel shore Encounter Details Date Type Department Care Team Description 10/26/2014 Irrigation Worker Report Medical Records [address] [place] [address] Antonio Jarvis Social History Tobacco Use Types [...] on filedocumented in this encounter Care Teams Coat Joiner Relationship Specialty Start Date End Date Ricky West MD PCP - General Internal Medicine 01/02/13 01/03/15 Aaliyah Smith MD PCP - General Internal Medicine 01/04/15 09/22/20 [facility], Pcp PCP - General Internal Medicine 09/23/20 documented as of this encounter
--- OUTSIDE RECORDS SUMMARY | 2024-07-06 15:32 | XMS_ITS | Encounter Summary ---
Author Organization [facility] Address [address] [place] [address] Care Team Providers Care Credit Interviewer Name Role Phone Aaliyah Smith MD Primary Care Provider Clarice webster [facility], Pcp Primary Care Provider Manuel shore Encounter Details Date Type Department Care Team Description 09/13/2015 Wellness Visit Medical Records [address] [place] [id number] Aaliyah Smith MD Social History Tobacco Use [...] on filedocumented in this encounter Care Teams Credit Interviewer Relationship Specialty Start Date End Date Aaliyah Smith MD PCP - General Internal Medicine 01/04/15 09/22/20 [facility], Pcp PCP - General Internal Medicine 09/23/20 documented as of this encounter
[2024-07-06] MEDS: Ketorolac Tromethamine 30 MG/ML VIAL IM (16:10)
[2024-07-06 16:29] VITALS: BP 167/80; PULSE 59; RESP 18; TEMP 36.6; O2SAT 98
== END 2024-07-06 16:29 | disposition home or self-care (01) ==
PROVIDERS: Emergency Provider Emergency Medicine; PCP Internal Medicine
DX: M17.11 Unilateral primary osteoarthritis, right knee (principal); M11.261 Other chondrocalcinosis, right knee; M25.561 Pain in right knee; Z87.891 Personal history of nicotine dependence
CPT/HCPCS: 73562; 96372; 99284; J1885

== ENCOUNTER → 2024-07-06 12:17 | Outpatient (BNV) | payer MEDICARE, SELFPAY | PROVIDERS: PCP Internal Medicine; Visit Provider Radiology Diagnostic Radiology | DX: M17.11 Unilateral primary osteoarthritis, right knee (principal) | CPT/HCPCS: 73562 ==

== ENCOUNTER 2024-07-15 10:46 | Outpatient (AMB) | payer MEDICARE, SELFPAY ==
--- NOTE | 2024-07-15 10:48 | A.OFFVIS_ITS ---
Vital Signs 07/15/24 11:17 Height 6 ft 3 in Weight 233 lb BMI 29.1 BP 124/78 Blood Pressure Location Rt brachial Position Sitting Pulse 152 H Pulse Source Pulse Oximeter Pulse Oximetry (%) 97 Oxygen Delivery Method Room Air Intake Visit Reasons: Dysphagia/Acute pharyngitis Intake Note: NEW PATIENT for eval of dysphagia + pharyngitis. CC; C.O. sore throat, dysphagia, cough, and general hoarseness. Pt has had these symptoms for the last few months. Post Splitter Required: No Accompanied by: Self / Same As Patient Allergies No Known Allergies Allergy (Verified 07/15/24 10:49) HPI HPI Dysphagia/Acute pharyngitis: Details: 79-year-old male with past medical history of hypothyroidism, metastatic papillary thyroid cancer, hyperlipidemia, arthritis, dysphagia is here today for initial consultation. Patient reports constant sore throat feeling tightness in his throat where he has to grab his neck and move it side to side in order to turn his head sometimes is harder to do that. Patient reports that he saw ENT in [place] and was supposed to have a procedure, however patient could not tolerated and never went back for follow-up. Coughing to clear his throat after eating and drinking. 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 Patient reports that he had cancer not only in his thyroid but also in his trachea and esophagus. Patient reports feeling dizzy and lightheaded with balance feeling off. Shortness of breath is limiting his daily activities and he requires in inhaler. Last endoscopy was several years ago and [facility]. Patient reports occasional acid reflux. Currently not on any PPI. [facility] Surgical History (Updated 07/15/24 @ 11:17 by MARTY Keys) Hx of spinal surgery History of ptosis repair Voice impairment History of transurethral resection of prostate Epidermal inclusion cyst History of right knee surgery S/P foot surgery, right Right shoulder injury History of thyroidectomy Neoplasm of right patella Inguinal hernia bilateral, non-recurrent Left hand pain Family History Mother Coronary artery disease Pulmonary embolism Father Cancer of prostate Social History Housing: House Alcohol intake: never Patient Tobacco Use Status: Former Tobacco user Cigarette Packs Per Day: 0.5 Years Smoked: 3 e-Cigarette/Vaping Use: Never Used Second Hand Smoke Exposure: No service: Yes Current occupational status: retired Cognitive needs: No Hearing needs: Yes (bilateral hearing aids) Vision needs: Yes (glasses) Review of Systems Const Denies weight gain and Denies weight loss ENT Reports no additional complaints, Reports dysphagia and Denies odynophagia Card Reports no additional complaints Resp Reports no additional complaints GI Denies abdominal pain, Denies belching, Denies melena, Denies bloating, Denies change in bowel habits, Reports dysphagia, Denies excessive flatus, Denies dyspepsia, Denies heartburn, Denies diarrhea, Denies loose stools, Denies nausea, Denies odynophagia and Denies vomiting Reports no additional complaints Musc Reports no additional complaints Neuro Reports no additional complaints Psych Reports no additional complaints Endo Reports no additional complaints Physical Exam Const Other: Ambulating with a cane General: healthy appearing, no acute distress and well developed Nutritional Appearance: well nourished Orientation/consciousness: patient oriented x3 Resp Effort & Inspection: normal respiratory effort, able to speak in complete sentences, no tracheal deviation and symmetric chest movement Auscultation: clear to auscultation bilaterally Cardio Rate: regular rate GI Inspection: Yes normal to inspection and No distended Palpation (GI): Soft to palpation, not firm, nontender and No hepatosplenomegaly present Auscultation: normal bowel sounds General: Yes no CVA tenderness Back/Spine/Pelvis Back: no CVA tenderness Skin General skin exam: elasticity normal, turgor normal and dry skin Neuro General: patient oriented x3 Psych Appearance: grossly normal Mental Status: mental status grossly normal Assessment & Plan Assessment & Plan (1) Dysphagia: Code(s): R13.10 - Dysphagia, unspecified Category: Medical Qualifiers: Dysphagia type: unspecified Qualified Code(s): R13.10 - Dysphagia, u nspecified (2) GERD (gastroesophageal reflux disease): Code(s): K21.9 - Gastro-esophageal reflux disease without esophagitis Qualifiers: Esophagitis presence: esophagitis presence not specified Qualified Code(s): K21.9 - Gastro-esophageal reflux disease without esophagitis Plan Will send patient for modified barium swallow and upper endoscopy. Patient might need dilation. Patient also reports acid reflux will treat him with pantoprazole for now. Acid reflux could be worsening his symptoms of dysphagia. Follow-up in 6 weeks to re-evaluate. In the meantime scheduled endoscopy and MBS. Patient was encouraged to eat small bites and drink fluids. Patient was encouraged to clear throat and cough after swallowing to making sure that he does not choke. Patient is agreeable to current plan of care and verbalizes understanding of instructions. He was given the opportunity to ask questions and all questions answered. Thank you for allowing me to participate in his care Orders: Orders FL Modified Barium Swallow Today R13.10 - Dysphagia, unspecified Medications: New pantoprazole take one tablet half an hour before breakfast 40 mg PO DAILY 30 tabs 3RF K21.9 - Gastro-esophageal reflux disease without esophagitis Coding Level of Care Code New Pt Level 4 (27797) Diagnoses Dysphagia, unspecified type R13.10 Dysphagia type: unspecified Gastroesophageal reflux disease, unspecified whether esophagitis present K21.9 Esophagitis presence: esophagitis presence not specified Time Spent (min) 45 Comment 30 minutes spent with patient and additional 15 minutes spent reviewing his records
[2024-07-15 11:17] VITALS: BP 124/78; PULSE 152; O2SAT 97; BMI 29.1
--- OUTSIDE RECORDS SUMMARY | 2024-07-15 11:51 | XMS_ITS | Encounter Summary ---
Author Organization [facility] Address [address] [place] [address] Care Team Providers Care Conservation Scientist Name Role Phone Ricky West MD Primary Care Provider Aaliyah Jefferson MD Primary Care Provider Clarice Mac, Pcp Primary Care Provider Manuel shore Encounter Details Date Type Department Care Team Description 06/18/2014 Rn Case Manager Report Medical Records [address] [place] [address] Milo Park MD Social History Tobacco Use [...] on filedocumented in this encounter Care Teams Conservation Scientist Relationship Specialty Start Date End Date Ricky West MD PCP - General Internal Medicine 01/02/13 01/03/15 Aaliyah Smith MD PCP - General Internal Medicine 01/04/15 09/22/20 [facility], Pcp PCP - General Internal Medicine 09/23/20 documented as of this encounter
== END 2024-07-15 11:25 | disposition home or self-care (01) ==
LOC: HO.HGI 10:47
PROVIDERS: PCP Internal Medicine; Visit Provider Nurse Practitioner Family
DX: R13.10 Dysphagia, unspecified (principal); K21.9 Gastro-esophageal reflux disease without esophagitis
CPT/HCPCS: 99204

== ENCOUNTER → 2024-07-15 10:46 | Outpatient (BNVA) | payer MEDICARE, SELFPAY | PROVIDERS: PCP Internal Medicine; Visit Provider Nurse Practitioner Family | DX: M17.0 Bilateral primary osteoarthritis of knee (principal); K21.9 Gastro-esophageal reflux disease without esophagitis; R13.10 Dysphagia, unspecified | CPT/HCPCS: 99202; 99212 ==

== ENCOUNTER 2024-07-15 12:55 | Outpatient (AMB) | payer MEDICARE, SELFPAY ==
--- NOTE | 2024-07-15 12:58 | MHC.OFFVIS ---
Vital Signs 07/15/24 12:59 Height 6 ft 3 in Weight 233 lb BMI 29.1 Intake Visit Reasons: Bilateral knee pains Intake Note: Evert is a 79 year old male who presents with complaints of progressively worsening bilateral knee pains. He describes his pains as sharp in nature. He did undergo right knee arthroscopic surgery several years ago. He got temporary relief from that procedure. He has tried Tylenol and Naprosyn which gave him only mild relief. The patient did have a series of 3 Euflexxa injections given into his left knee in January of 2024. Those injections gave him fairly good relief. He also had a cortisone injection given into his right knee on 05/12/2024. He got minimal relief from the cortisone injection. He has done physical therapy exercises which aggravated his pain. He has failed the last 3 months of conservative treatment. At this point his knee pains are interfering with his activities of daily living and his ability to sleep well through the night. The patient wishes to hold off on total knee replacement surgery for as long as possible. Allergies No Known Allergies Allergy (Verified 07/15/24 10:49) Medication List - Last Reconciled 07/15/24 by Oniel Javier MD albuterol sulfate 90 mcg/actuation 2 puffs inhalation Q4H PRN 90 days atorvastatin 20 mg PO DAILY 90 days levothyroxine 200 mcg PO DAILY pantoprazole 40 mg PO DAILY pregabalin 150 mg PO BID 90 days tiotropium-olodaterol 2.5-2.5 mcg/actuation (Stiolto Respimat) 2 puffs inhalation DAILY PFSH Surgical History Hx of spinal surgery History of ptosis repair Voice impairment History of transurethral resection of prostate Epidermal inclusion cyst History of right knee surgery S/P foot surgery, right Right shoulder injury History of thyroidectomy Neoplasm of right patella Inguinal hernia bilateral, non-recurrent Left hand pain Family History Mother Coronary artery disease Pulmonary embolism Father Cancer of prostate Social History Housing: House Alcohol intake: never Patient Tobacco Use Status: Former Tobacco user Cigarette Packs Per Day: 0.5 Years Smoked: 3 e-Cigarette/Vaping Use: Never Used Second Hand Smoke Exposure: No service: Yes Current occupational status: retired Cognitive needs: No Hearing needs: Yes (bilateral hearing aids) Vision needs: Yes (glasses) Physical Exam Vital Signs: BMI result Body Mass Index 29.1 Const Other: Well-nourished well-developed very friendly male awake alert and oriented x3 in no acute distress Extrem Other: Bilateral lower extremity examination shows good capillary refill, no skin lesions noted, normal sensation light touch Bilateral knee examination shows minimal effusions, palpable crepitus with range of motion, pain with range of motion, no instability Results Reviewed Results Reviewed: X-rays with the patient's bilateral knee show joint space narrowing, subchondral sclerosis, no acute bony abnormalities Assessment & Plan Assessment & Plan (1) Osteoarthritis of left knee: Code(s): M17.12 - Unilateral primary osteoarthritis, left knee Category: Medical (2) Osteoarthritis of right knee: Code(s): M17.11 - Unilateral primary osteoarthritis, right knee Category: Medical Plan Mr. Clemons presents with bilateral knee pains due to osteoarthritis. I had a lengthy discussion with the patient regarding the treatment options. He wishes to hold off on surgery for as long as possible. I agree with this plan. I will see whether or not the patient's insurance company will cover a series of 3 Euflexxa injections for both of his knees. I will see him back once the injections are available. Feel free to call me at any time should questions regarding his orthopedic management arise. I spent 22 minutes in reviewing the patient's records and imaging studies, seeing the patient and documenting in the medical record. Medications: New methylprednisolone (Medrol ([place])) PO PER PKG DIR 21 ea 0RF naproxen 500 mg PO Q12H PRN 60 tabs 3RF pain Coding Level of Care Code Est Pt Level 3 (46943) Complex EM visit Add On G2211 Diagnoses Osteoarthritis of left knee M17.12 Osteoarthritis of right knee M17.11
[2024-07-15 12:59] VITALS: BMI 29.1
== END 2024-07-15 13:25 | disposition home or self-care (01) ==
LOC: HO.HOS 12:56
PROVIDERS: PCP Internal Medicine; Visit Provider Orthopaedic Surgery
DX: M17.0 Bilateral primary osteoarthritis of knee (principal)
CPT/HCPCS: 99214; G2211

== ENCOUNTER 2024-07-17 10:00 | Outpatient (REF) | payer MEDICARE, SELFPAY ==
--- NOTE | ~2024-07-17 | FL_ITS ---
EXAMINATION: XR BARIUM SWALLOW CLINICAL INFORMATION: Dysphagia COMPARISON: None available. TECHNIQUE: Routine modified barium swallow was performed in upright lateral position under fluoroscopy in presence of speech therapist. FINDINGS: On oral menstruation of thin barium there is trace laryngeal penetration, but no aspiration. No retention in valleculae or piriform sinuses. On oral administration of saltine crackers coated with barium and nectar consistency barium there is normal oral mastication with solid food and propagation of bolus from the oral cavity through the pharynx and esophagus. No laryngeal penetration or aspiration seen. FLUOROSCOPY TIME: 1 minute 2 seconds DOSE AREA PRODUCT: 1132 uGy-m2 (microgray-meter squared) FL/FL Modified Barium Swallow IMPRESSION: Trace laryngeal penetration with thin barium but otherwise unremarkable modified barium swallow. Correlate with speech therapy results Electronically signed by: Anival Guillen MD 07/17/2024 11:46 AM EDT
--- NOTE | 2024-07-17 17:37 | MHC.SL.IMP ---
Date of Plan of Treatment: 07/17/24 Onset of Symptoms/Illness: 07/01/06 Date Treatment Started: 07/17/24 Admitting Diagnosis: Dysphagia Primary Speech & Language Diagnosis: R13.12 Oropharyngeal Phase Dysphagia Reason for Today's Visit: 36370 Modified Barium Swallow Study Pre-evaluation Dietary Consistencies: Regular Pre-evaluation Liquid Consistency: Thin Pre-evaluation Medication Administration: Whole with Liquid Medical History: Modified Barium Swallow Study Fluoroscopic Evaluation of Swallowing Function CPT Code 76937 Evaluation Year: 2024 Reason for Study: Patient reports tightness/squeezing in throat, hx cancer of thyroid, trachea, and esophagus Referring Physician: Marlin Thomas REFORESTATION WORKER- Evaluating Clinician: Dyana Claudio MA, CCC-FOREIGN AGENT Study Number: 1 Patient Name: Evert Clemons Status: Outpatient, Ambulatory/Assisted Age: 79 Sex: Male Medical History Surgical History (Updated 07/15/24 @ 11:17 by Telly Mott [facility]) Hx of spinal surgery History of ptosis repair Voice impairment History of transurethral resection of prostate Epidermal inclusion cyst History of right knee surgery S/P foot surgery, right Right shoulder injury History of thyroidectomy Neoplasm of right patella Inguinal hernia bilateral, non-recurrent Left hand pain Current (pre-evaluation) Intake/Diet: Route: PO Diet Grade: Regular Liquid Consistencies: Thin Pre-Study Functional Oral Intake Scale (FOIS): 7- Total oral intake with no restrictions Pain: Chronic/Ongoing reported at time of study, Throat, rated 4 on scale 0-10 SUBJECTIVE: Patient is a 79 year old male referred for an urgent MBSS at the request of Marlin Thomas NP of the [facility]. He was also referred to have an upper endoscopy, unclear if this has been scheduled yet. Patient reports onset of dysphagia in 2006 when he had thyroid surgery and says he has been dealing with it for years. Patient reports since then he has also been diagnosed with vocal fold paralysis after receiving radiation treatment, though he does not recall if this affected one vocal fold or bilaterally. He says he saw an ENT for an attempt to get injections in his vocal folds, however, he says he ?developed a reaction? before the procedure. He says he discussing doing the procedure under anesthesia, but ultimately declined due to his throat tightness, stating, ?I did not want anything in there.? Patient does not believe he was ever seen for speech therapy for his voice nor had an MBSS. He complains of throat tightness and squeezing in his throat, and needing to cut all his food into small pieces. Patient also reports ongoing throat pain, ?generally not just when swallowing,? which he rates 4 out of 10. 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 Oral Motor Exam Facial Symmetry: Symmetrical Mouth Occlusion: Normal Oral-Facial Teeth Miscellaneous Observation: Tongue Size: Normal Tongue Excursion Description: Normal Tongue Movement Characteristics: Normal/Absent Tongue Movement Miscellaneous Observation: Patient is able to produce volitional cough/throat clear, though it is weak Is patient able to manage secretions?: Yes Is patient able to produce volitional cough?: Yes Food and Liquid Trials: Oral Impairment: Lip Closure: Did not test Oral Impairment: Tongue Control During Bolus Hold: 1=Escape to lateral buccal cavity/floor of mouth (FOM) Oral Impairment: Bolus Preparation/Mastication: 1=Slow prolonged chewing/mashing with complete re-collection Oral Impairment: Bolus Transport/Lingual Motion: 1= Delayed initiation of tongue motion Oral Impairment: Oral Residue: 1=Trace residue lining oral structures Oral Impairment:Initiation of Pharyngeal Swallow: 1=Bolus head in valleculae Pharyngeal Impairment: Soft Palate Elevation: 1=Trace column of contrast or air between SP and PW Pharyngeal Impairment: Laryngeal Elevation: 1=Partial thyroid cartilage/arytenoids to epiglottic petiole movement Pharyngeal Impairment: Anterior Hyoid Excursion: 1=Partial anterior movement Pharyngeal Impairment: Epiglottic Movement: 1=Partial inversion Pharyngeal Impairment: Laryngeal Vestibular Closure:: 1=Incomplete: narrow column air/contrast in laryngeal vestibule Pharyngeal Impairment: Pharyngeal Stripping Wave: 0=Present: complete Pharyngeal Impairment: Pharyngeal Contraction: Did not test Pharyngeal Impairment: Pharyngoesophageal Segment Opening: Did not test Pharyngeal Impairment: Tongue Base (TB) Retraction: 2=Narrow column of contrast/air between TB and posterior PW Pharyngeal Impairment: Pharyngeal Residue: 1=Trace residue within or on pharyngeal structures Pharyngeal Impairment: Esophageal Clearance Upright Position: Did not test Impressions and Recommendations Clinical Observations: OBJECTIVE: Time-out: performed at 10:45 Evaluation Start: 10:30; Stop: 10:35 Patient Positioning: Standing Viewing Planes: OBLIQUE ONLY Contrast: MBSImP? Standardized Protocol using commercially prepared, standardized Barium viscosities, including: Varibar? THIN LIQUID (40% w/v, <15 cps) , Varibar? PUDDING (40% w/v, <7814-7044 cps) , 1/2 Shortbread Cookie (1 x1 x.25 ) MBSImP ID: [id number] MBSImP Results: Lip closure for intraoral bolus containment could not be assessed due to logistical reasons not related to physiologic impairment. Tongue control during bolus hold allowed bolus escape to the lateral buccal cavity/floor of mouth. Bolus preparation and mastication resulted in slow, prolonged chewing/mashing but with complete re-collection. Bolus transport/lingual motion demonstrated delayed initiation of tongue motion. Oral residue was a trace, lining oral structures. Initiation of the pharyngeal swallow occurred when the bolus head was in the valleculae. Soft palate elevation allowed a trace column of contrast or air between the soft palate and the pharyngeal wall. Laryngeal elevation was decreased, with partial superior movement of the thyroid cartilage/partial approximation of the arytenoids to the epiglottic petiole. Anterior hyoid excursion demonstrated partial anterior movement. Epiglottic movement resulted in partial inversion. Laryngeal vestibular closure was incomplete, with a narrow column of air/contrast noted within the laryngeal vestibule at the height of the swallow. Pharyngeal stripping wave was present and complete. Pharyngeal contraction could not be determined due to logistical reasons not related to physiologic impairment. Pharyngoesophageal segment opening could not be assessed due to logistical reasons not related to physiologic impairment. Tongue base retraction allowed a narrow column of contrast or air between the retracted tongue base and the posterior pharyngeal wall. Pharyngeal residue was a trace within or on pharyngeal structures. Esophageal clearance in the upright position could not be assessed due to logistical reasons not related to physiologic impairment. Oral Impairment Score: 4 (absence of score, component 1) Pharyngeal Impairment Score: 7 (absence of score, component 13component 14) Esophageal Impairment Score: --- (absence of score, component 17) Laryngeal Penetration and Aspiration: Neither penetration nor aspiration was observed in today's study with Cookie, Pudding-thick. Penetration was observed in today's study. Thin Contrast entered the airway, remained above the vocal folds, and was ejected from the airway. ASSESSMENT: Clinician Assessment: This exam was performed by the radiologist and the speech pathologist. Patient was standing for oblique view. He was able to feed himself without any difficulty and trialed thin (via individual cup sips), puree, and regular solid textures. There was escape of contrast to the floor of mouth, but no spillage posteriorly prior to the pharyngeal swallow. Mastication was mildly slowed, notable for piece meal deglutition pattern. Patient swallowed up to 3 times to clear contrast from the oral cavity with liquids and purees. Posterior lingual motion was delayed, but with brisk movement. Trace residue coated the tongue and cleared on subsequent swallows. Pharyngeal swallow trigger initiated as the bolus head reached the valleculae. There was trace contrast escaping between the soft palate and pharyngeal wall. Partial laryngeal elevation with partial epiglottic inversion and incomplete laryngeal vestibular closure. Trace penetration seen above the vocal folds on trials of thin liquid, with no subsequent aspiration. No evidence of aspiration or penetration with purees and regular solid. There was trace residue on the tongue base, on the posterior pharyngeal wall, and in the valleculae, which cleared with subsequent swallows. The following compensatory strategies have not been used until today's study, but when employed, improved swallowing function: Additional Swallow(s) per Bolus eliminated Penetration, Oral Residue, Pharyngeal Residue Liquid Intake Recommendation: Thin Liquid Intake Strategies: Small Sips, No Straws Dietary Recommendations: Regular Medication Administration: Whole with Liquid Please contact the pharmacy regarding appropriate crushable or liquid drug formulations that are available whenever modified delivery is recommended. Compensatory Strategies Recommended: Sitting Upright (90 deg), Double Swallow, No Straw, Small Bites and Sips, Rate of Ingestion Change Recommended Treatments: Compens. Strategy Educat. Recommendation for Speech Therapy: Outpatient Speech Therapy Text Comment: Intake Recommendations: Route: PO Diet Grade: Regular Liquid Consistencies: Thin Post-Study Functional Oral Intake Scale (FOIS): 7- Total oral intake with no restrictions Mild oropharyngeal dysphagia. Trace penetration above the vocal folds with thin liquid. No evidence of aspiration during this exam. Good oral and pharyngeal clearance. Suggested Referrals: The patient might benefit from a referral to: Gastroenterology Indication for Referral: Patient reports occasional acid reflux Otolaryngology Indication for Referral: Weak voice, patient reports vocal fold(s) paralysis FOREIGN AGENT specializing in voice disorders Indication for Referral: Instrumental voice evaluation (e.g. videostroboscopy) with voice treatment if indicated Therapy Recommendations: Recommend 1-2 follow up visits with a speech pathologist to review MBSS findings and recommended feeding strategies. While no aspiration was evident during this exam in a controlled environment, there was trace penetration noted above the vocal folds, patient is at risk for aspiration given his history of vocal fold paralysis, which could impact airway protection. Recommend resume regular texture diet and thin liquids with aspiration precautions: take small sips, one sip at a time, avoid ?chugging? liquids, avoid the use of straws, take small bites of food, chew food well, clear oral cavity before taking more bites, dry swallow between bites as needed for clearance. FOREIGN AGENT discussed recommendation for patient to have instrumental voice evaluation (e.g. videostroboscopy) with voice treatment if indicated. Patient expressed he has been content with the way his voice sounds, as it has been this way for a long time, and does not think he is interested in seeing a voice therapist at this time. The following compensatory strategies and/or therapeutic exercises will be part of the upcoming therapy/management plan: Additional Swallow(s) per Bolus Qualification Engineer Goals: ? The patient and/or family will participate in further education for swallowing goals. Short Term Goals: ? Guidelines - The patient will comply with/recall the following guidelines/strategies 100% of the time with no cuing: Bolus Volume Change, Rate of Ingestion Change, Additional Swallow(s) per Bolus, No Straws. ? Education - The patient will verbalize/demonstrate understanding of the results of this evaluation, the above recommendations, and the swallowing guidelines. Frequency/Duration: 1-2 f/u Date Range for Service Requested: Timeline to reassess: PRN Clinician - Supplemental, Miscellaneous Communication: It is important to note MBSS objective studies are snapshots in time and Patient function might vary with factors such as time of day or concomitant medical conditions. For this reason, the final treatment plan for this patient should rest with their medical care team. Additional recommendations should be considered with the totality of the Patient in mind. Thank for the opportunity to participate in the care of this patient. If you have any questions about the content of this report, please contact the [facility]. Education: Education regarding findings from today's study and plans for therapy were provided to Patient only through Verbal Instruction. Understanding was expressed by the Patient only. Fish Cleaner Clinician/Clinical Fellow: No Supervisory Statement: N/A Speech Language Pathologist: Dyana Claudio M.A., CCC-FOREIGN AGENT
== END 2024-07-17 10:01 | disposition home or self-care (01) ==
LOC: HO.XRAY 10:00
PROVIDERS: PCP Internal Medicine; Visit Provider Nurse Practitioner Family
DX: R13.10 Dysphagia, unspecified (principal)
CPT/HCPCS: 74230; 92611

== ENCOUNTER → 2024-07-17 10:30 | Outpatient (BNV) | payer MEDICARE, SELFPAY | PROVIDERS: PCP Internal Medicine; Visit Provider Radiology Diagnostic Radiology | DX: R13.10 Dysphagia, unspecified (principal) | CPT/HCPCS: 74230 ==

== ENCOUNTER 2024-07-28 09:55 | Outpatient (AMB) | payer MEDICARE, SELFPAY ==
--- NOTE | 2024-07-28 09:59 | A.OFFPC_ITS ---
Vital Signs 07/28/24 10:00 07/28/24 10:09 Height 6 ft 3 in Weight 240 lb BMI 30.0 BP 116/80 122/80 Blood Pressure Location Rt brachial Rt brachial Position Sitting Sitting Pulse 148 H 152 H Pulse Source Pulse Oximeter Pulse Oximeter Temp 97.9 F Pulse Oximetry (%) 95 96 Oxygen Delivery Method Room Air Room Air Intake Visit Reasons: ED from [facility] on 07/06/24 Intake Note: Evert presents in the office today for an ER follow up. Allergies No Known Allergies Allergy (Verified 07/28/24 10:01) Tobacco use date assessed: 07/28/24 Dental Screening Dental Screen Date: 07/28/24 Did you have a dental visit in the last 12 months?: Yes Did you have a dental problem in the last 6 months where you did not have access to dental care?: No Was dental information given to patient?: Patient has dentist HPI HPI Comments History of Present Illness Details The patient is a 79 year old male with a past medical history of metastatic papillary thyroid cancer, hypothyroid, hyperlipidemia, arthritis presenting for ER follow up Seen in June at [facility] ER for flare in bilateral knee pain. Has seen ortho since. Plan for euflexxa right knee. Has been having pedal edema and some orthopnea. Completed prednisone. Still on naproxen. No diet changes. Has had echo not too long ago. Thyroid cancer: Endocrine, Dr Rajan monitoring. u/s and blood work every six months. Continued levothyroxine. MSK: Underwent back surgery at [place]. Back pain is decreased. Stable bilateral leg pain, shooting. Tried gabapentin in the past, duloxetine. GI:globus, difficulty swallowing at times, tightness. Saw [facility] GI in June. Plan for MBS and EGD CV: On atorvastatin. Chronic intermittent transient shortness of breath. Afib or similar suspected. Declined AC. Underwent thorough cardiopulmonary work up. Rsp: Follows with Dr Hardwick. On Anoro. stable. CT 12/2023 with stabl b/l GGO and pulm nodules Follows with urology with [facility]. Colonoscopy [facility]at[facility] ROS see HPI PHYSICAL EXAM: GENERAL: Alert and oriented x 3. NAD EYES: EOMI. Anicteric. HENT: Moist mucous membranes. No scleral icterus. No cervical lymphadenopathy. LUNGS: Inspiratory crackles CARDIOVASCULAR: Regular rate and rhythm. No murmur. +JVD on HJR ABDOMEN: Soft, non-tender +bs EXTREMITIES: Pedal edema. +DP pulses SKIN: No rashes or lesions. Warm. NEUROLOGIC: No focal neurological deficits. CN II-XII grossly intact PSYCHIATRIC: Cooperative. Appropriate mood and affect [facility] Surgical History Hx of spinal surgery History of ptosis repair Voice impairment History of transurethral resection of prostate Epidermal inclusion cyst History of right knee surgery S/P foot surgery, right Right shoulder injury History of thyroidectomy Neoplasm of right patella Inguinal hernia bilateral, non-recurrent Left hand pain Family History Mother Coronary artery disease Pulmonary embolism Father Cancer of prostate Social History Housing: House Alcohol intake: never Patient Tobacco Use Status: Former Tobacco user Cigarette Packs Per Day: 0.5 Years Smoked: 3 e-Cigarette/Vaping Use: Never Used Second Hand Smoke Exposure: No service: Yes Current occupational status: retired Cognitive needs: No Hearing needs: Yes (bilateral hearing aids) Vision needs: Yes (glasses) Questionnaire PHQ-9 Over the last 2 weeks, how often have you been bothered by any of the following problems? 1. Little interest or pleasure in doing things: not at all 2. Feeling down, depressed, or hopeless: not at all 3. Trouble falling or staying asleep, or sleeping too much: nearly every day 4. Feeling tired or having little energy: nearly every day 5. Poor appetite or overeating: not at all 6. Feeling bad about yourself - or that you are a failure or have let yourself or your family down: not at all 7. Trouble concentrating on things, such as reading the newspaper or watching television: not at all 8. Moving or speaking so slowly that other people could have noticed. Or the opposite - being so fidgety or restless that you have been moving around a lot more than usual: not at all 9. Thoughts that you would be better off or of hurting yourself in some way: not at all Total score: 6 Depression Screening Interpretation: Positive Depression Screening Follow-up: Existing condition Depression Screening Done: Yes 37741 - PHQ-9 Billing: Yes Source: Developed by Drs. Pavan Phillip, Jay Quezada and colleagues, with an educational collins from [employer]. Thrive Questionnaire Date Thrive assessed: 07/28/24 I am a: Patient What is your living situation today?: I have a steady place to live Within the past 12 months, did the food you bought not last and you didn't have the money to get more?: Never true Within the past 12 months, did you worry whether your food would run out before you got money to buy more?: Never true Do you have trouble paying for medicines?: No Do you have trouble getting transportation to medical appointments?: No Do you have trouble paying your heating and electricity bill?: No Do you have trouble taking care of your child, family member or friend?: No Do you have trouble with day-to-day activities such as bathing, preparing meals, shopping, managing finances, etc.?: I choose not to answer this question Are you currently unemployed and looking for a job?: I choose not to answer this question Are you interested in more education?: No Please select the resources that you would like help with: None Currently or been in a relationship where the following occur: No concerns reported THRIVE Score: 0 AUDIT C Alcohol Use Questionnaire (AUDIT-C) 3. How often do you have six or more drinks on one occasion?: Never Total Score: 0 Score Reviewed/Action Taken: No MEEK-7 AMB Questionnaire MEEK-7 Date MEEK - 7 assessed: 07/28/24 Source: Developed by Drs. Pavan Phillip, Jay Quezada and colleagues, with an educational collins from [employer]. Physical exam (Primary Care) Vital Signs: Last Vital Signs Temp 97.9 F 07/28/24 10:00 Pulse 152 H 07/28/24 10:09 BP 122/80 07/28/24 10:09 Pulse Ox 96 07/28/24 10:09 Oxygen Delivery Method Room Air 07/28/24 10:09 BMI result Body Mass Index 30.0 Tobacco/Smoking Status: Tobacco use Status Tobacco use date assessed 07/28/24 07/28/24 10:01 Patient Tobacco Use Status Former Tobacco user 07/28/24 10:01 e-Cigarette/Vaping Use Never Used 07/28/24 10:01 PHQ-9: PHQ-9 Score PHQ-9: Total score 6 07/28/24 10:16 Depression Screening Interpretation: Positive Depression Screening Follow-up: Existing condition Thrive Assessment: Date of Thrive Assessment Date Thrive assessed 07/28/24 07/28/24 10:01 Currently or been in a relationship where the following occur: No concerns reported Coding Level of Care Code Est Pt Level 4 (41000) Complex EM visit Add On G2211 Diagnoses Leg swelling M79.89 Chronic pain of right knee M25.561; G89.29 Chronicity: chronic 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 C79.9; C73 Additional Codes PHQ-9 - 77518 - PHQ-9 Billing: Yes ([id number]) Assessment & Plan Assessment & Plan (1) Leg swelling: Code(s): M79.89 - Other specified soft tissue disorders Category: Medical (2) Right knee pain: Code(s): M25.561 - Pain in right knee Category: Medical Qualifiers: Chronicity: chronic Qualified Code(s): M25.561 - Pain in right knee; G89.29 - Other chronic pain (3) 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: Code(s): C79.9 - Secondary malignant neoplasm of unspecified site; C73 - Malignant neoplasm of thyroid gland Category: Medical Plan ER follow up Acute on chronic knee pain. Ortho following. Plan for euflexxa. Check lyme Pedal edema, orthopnea. Trial furosemide prn. May consider repeat echo. ?naproxen Has follow up scheduled Orders: Orders Lyme IgG/IgM w/reflex to WB Today M79.89 - Other specified soft tissue disorders NT-proBNP Today M79.89 - Other specified soft tissue disorders Medications: New nebulizers nebulizer with tubing 1 ea 0RF NS R06.02 - Shortness of breath, R06.2 - Wheezing furosemide 20 - 40 mg (1 - 2 x 20 mg) PO DAILY PRN 90 tabs 0RF lower extremity swelling albuterol sulfate 2.5 mg (3 mL) inhalation .q 4h PRN 90 mL 0RF shortness of breath or wheezing R06.02 - Shortness of breath, R06.2 - Wheezing
[2024-07-28 10:00] VITALS: BP 116/80; PULSE 148; TEMP 36.6; O2SAT 95
[2024-07-28 10:09] VITALS: BP 122/80; PULSE 152; O2SAT 96
== END 2024-07-28 10:36 | disposition home or self-care (01) ==
LOC: HO.HMCFM 09:56
PROVIDERS: PCP Internal Medicine; Visit Provider Internal Medicine
DX: M79.89 Other specified soft tissue disorders (principal); M25.561 Pain in right knee; C79.9 Secondary malignant neoplasm of unspecified site; C73 Malignant neoplasm of thyroid gland; G89.29 Other chronic pain

== ENCOUNTER → 2024-07-28 09:55 | Outpatient (BNVA) | payer MEDICARE, SELFPAY | PROVIDERS: PCP Internal Medicine; Visit Provider Internal Medicine | DX: Z13.89 Encounter for screening for other disorder (principal) | CPT/HCPCS: 96127; 99212 ==

== ENCOUNTER 2024-07-28 10:38 | Outpatient (REF) | payer MEDICARE, SELFPAY ==
[2024-07-28 14:36] LABS: Estimated Average Glucose 114 mg/dL; Hemoglobin A1c % 5.6 % (<6.0)
[2024-07-29 14:13] LABS: NT-proBNP 2099 pg/mL (<450)
[2024-07-29 18:27] LABS: Lyme Abs Screen <0.90 index
== END 2024-07-28 10:39 | disposition home or self-care (01) ==
LOC: HO.WFDLDS 10:38
PROVIDERS: Visit Provider Internal Medicine
DX: M25.561 Pain in right knee (principal); G89.29 Other chronic pain; M79.89 Other specified soft tissue disorders; C73 Malignant neoplasm of thyroid gland; C79.9 Secondary malignant neoplasm of unspecified site; R06.02 Shortness of breath; R06.2 Wheezing; Z79.899 Other long term (current) drug therapy; Z13.31 Encounter for screening for depression; Z13.0 Encounter for screening for diseases of the blood and blood-forming organs and certain disorders involving the immune mechanism; E78.5 Hyperlipidemia, unspecified; Z13.228 Encounter for screening for other metabolic disorders
CPT/HCPCS: 36415; 83036; 83880; 86617; 86618; 96127; 99212

== ENCOUNTER → 2024-07-30 13:33 | Outpatient (REF) | payer MEDICARE, SELFPAY ==
--- NOTE | 2024-07-30 13:37 | CA_ITS ---
Transthoracic Echocardiogram Patient (Last, First, Middle): Evert Clemons, Gender: Male Date of : 1945 Age: 79 Procedure Date: 07/30/2024 Procedure Type: Transthoracic Echocardiogram Location: OP Height: 190.5 cm Weight: 108.86 kg BSA: 2.37 m2 Heart Rate: bpm BP: 116 / 80 mmHg Sneller Hand: ANN Referring MD: Aaliyah Carrillo MD Splitter Machine: Alberto Murphy MD Symptoms: M79.89 - Other specified soft tissue disorders Study Quality: Adequate ECG Rhythm: Sinus Conclusions: - 1. Normal LV ejection fraction of 60 65% with impaired relaxation filling pattern 2. Mild biatrial enlargement 3. Mild mitral regurgitation 4. Mildly elevated right ventricular systolic pressure with mildly elevated right atrial pressures 5. Mildly dilated ascending aorta at 4.2 cm 6. No gross pericardial effusion Findings Left Ventricle Normal left ventricular size, thickness, and systolic function. The visually estimated ejection fraction is between 60-65%. Spectral Doppler is indicative of an impaired relaxation filling pattern. E/E prime ratio is between 8 and 15 consistent with indeterminate filling pressures. Right Ventricle Normal right ventricular cavity size and systolic function. Atria Mild biatrial enlargement. There is no evidence of interatrial shunt. Aortic Valve Normal aortic valve structure and function. There is no aortic valve stenosis. There is no aortic valve regurgitation. Mitral Valve Normal mitral valve structure and function. There is no mitral valve regurgitation. There is mild mitral valve stenosis. Pulmonic Valve The pulmonic valve is likely normal. Tricuspid Valve There is mild tricuspid valve regurgitation. Mildly elevated right atrial pressure. Mild pulmonary hypertension is present. Great Vessels The pulmonary artery was not well visualized. There is mild dilatation of the ascending aorta measuring 4.20 cm. Venous The inferior vena cava is mildly dilated and collapses greater than 50% with inspiration. Pericardium/Pleural There is no evidence of pericardial effusion. Prior Study Comparison No prior study available for comparison. Measurements 2D Linear Measurements IVSd: 1.25 0.6-0.9/0.6-1.0 cm LVIDd: 5.36 3.9-5.3/4.2-5.9 cm LVIDd Index: 2.26 2.4-3.2/2.2-3.1 cm/m2 LVIDs: 3.17 2.0-3.6 cm LVPWd: 0.97 0.7-1.1 cm LA Diam: 4.60 2.7-3.8/3.0-4.0 cm LAIDs Index: 1.94 1.5-2.3 cm/m2 LV Mass: 292.97 67-162/88-224 g LV Mass Index: 123.62 43-95/49-115 g/m2 LVOT Diam: 2.30 3.0+(-)1.3 cm 2D Systolic Function EF 4C: 62.10 >55% EF 2C: 60.10 >55% EF BiP: 62.50 >55% Mitral Valve MV Pk E: 1.18 MV PK A: 0.41 MV Decel Time: 186.00 E/A: 2.90 E'Lateral: 10.60 E'Medial: 7.83 E/E' Med: 15.10 E/E' Lat: 11.10 PHT: 54.00 MVA PHT: 4.07 Decel Darke: 6.37 MR Vol - PW Dopp: 25.08 MR VTI: 1.32 MR ERO: 19.00 MR Alias Jerome: 0.40 MR RAD: 0.60 Aortic Valve AoV Pk Jerome: 1.35 AoV Mn Jerome: 0.97 AoV VTI: 0.28 AoV Pk Grad: 7.00 Aov Mn Grad: 4.00 REYES Cont.VTI: 3.49 LVOT LVOT Pk Jerome: 1.23 LVOT Mn Jerome: 0.84 LVOT VTI: 0.24 LVOT Pk Grad: 6.00 LVOT Mn Grad: 3.00 LVOT Diam: 2.30 LVOT Area: 4.15 Diastolic Function MV Pk E: 1.18 MV Pk A: 0.41 E/A: 2.90 E'Medial: 7.83 E/E' Med: 15.10 E' Laterial: 10.60 E/E' Lat: 11.10 Right Ventricle TAPSE (mm): 27.20 TVS' Jerome: 16.60 Tricuspid Valve TR Pk Jerome: 2.95 TR Pk Grad: 35.00 RA Press: 8.00 RVSP: 43.00 Great Vessels Aorta Sinus of Valsalva: 3.77 2.0-3.[address] Ridge: 2.66 1.7-3.4 cm Ao Asc: 4.20 2.1-3.4 cm Ao Arch: 3.60 Updated in Other Vendor System with Status of Final Alberto Murphy MD electronically signed on 07/31/2024 2:39:10 PM with status of Final
--- OUTSIDE RECORDS SUMMARY | 2024-07-30 15:49 | XMS_ITS | Encounter Summary ---
Author Organization [facility] Address [address] [place] [address] Care Team Providers Care Instrument Assembly Supervisor Name Role Phone Ricky West MD Primary Care Provider Aaliyah Jefferson MD Primary Care Provider Clarice Mac, Pcp Primary Care Provider Manuel shore Encounter Details Date Type Department Care Team Description 06/18/2014 Stonemason Supervisor Report Medical Records [address] [place] [address] Milo Park MD Social History Tobacco Use [...] on filedocumented in this encounter Care Teams Instrument Assembly Supervisor Relationship Specialty Start Date End Date Ricky West MD PCP - General Internal Medicine 01/02/13 01/03/15 Aaliyah Smith MD PCP - General Internal Medicine 01/04/15 09/22/20 [facility], Pcp PCP - General Internal Medicine 09/23/20 documented as of this encounter
== END ==
LOC: HO.CARD 13:33
PROVIDERS: PCP Internal Medicine; Visit Provider Internal Medicine
DX: R06.09 Other forms of dyspnea (principal); M79.89 Other specified soft tissue disorders
CPT/HCPCS: 93306

== ENCOUNTER → 2024-07-30 13:37 | Outpatient (BNV) | payer MEDICARE, SELFPAY | PROVIDERS: PCP Internal Medicine; Visit Provider Internal Medicine Cardiovascular Disease | DX: M79.89 Other specified soft tissue disorders (principal); I27.20 Pulmonary hypertension, unspecified; I51.7 Cardiomegaly | CPT/HCPCS: 93306 ==

== ENCOUNTER 2024-08-12 14:41 | Outpatient (AMB) | payer MEDICARE, SELFPAY ==
--- NOTE | 2024-08-12 14:44 | A.OFFVIS_ITS ---
Vital Signs 08/12/24 14:47 Height 6 ft 3 in Weight 240 lb BMI 30.0 Intake Visit Reasons: Inj- Right knee Euflexxa #1 Intake Note: Evert is a 79 year old male who presents today for this first dose of his right knee Euflexxa gel injection. The patient describes his knee pain as achy in nature. He has had cortisone injections which gave him minimal relief. He would like to hold off on surgery if at all possible. He has tried Tylenol and anti-inflammatory medicines which gave him minimal relief. Allergies No Known Allergies Allergy (Verified 08/12/24 14:47) Medication List - Last Reconciled 08/12/24 by Oniel Javier MD albuterol sulfate 90 mcg/actuation 2 puffs inhalation Q4H PRN 90 days albuterol sulfate 2.5 mg (3 mL) inhalation .q 4h PRN atorvastatin 20 mg PO DAILY 90 days furosemide 20 - 40 mg (1 - 2 x 20 mg) PO DAILY PRN levothyroxine 200 mcg PO DAILY naproxen 500 mg PO Q12H PRN nebulizers nebulizer with tubing NS pregabalin 150 mg PO BID 90 days tiotropium-olodaterol 2.5-2.5 mcg/actuation (Stiolto Respimat) 2 puffs inhalation DAILY PFSH Surgical History Hx of spinal surgery History of ptosis repair Voice impairment History of transurethral resection of prostate Epidermal inclusion cyst History of right knee surgery S/P foot surgery, right Right shoulder injury History of thyroidectomy Neoplasm of right patella Inguinal hernia bilateral, non-recurrent Left hand pain Family History Mother Coronary artery disease Pulmonary embolism Father Cancer of prostate Social History Housing: House Alcohol intake: never Patient Tobacco Use Status: Former Tobacco user Cigarette Packs Per Day: 0.5 Years Smoked: 3 e-Cigarette/Vaping Use: Never Used Second Hand Smoke Exposure: No service: Yes Current occupational status: retired Cognitive needs: No Hearing needs: Yes (bilateral hearing aids) Vision needs: Yes (glasses) Physical Exam Const Other: Well-nourished well-developed very friendly male awake alert and oriented x3 in no acute distress Extrem Other: Bilateral lower extremity examination shows good capillary refill, no skin lesions noted, normal sensation light touch Right knee examination shows a minimal effusion, palpable crepitus with range of motion, pain with range of motion, no instability Office Procedures AMB Joint Injection/Aspiration Joint Injection/Aspiration Primary Site: right knee Prep: site was prepped using aseptic technique Injected: 20 mg of (Euflexxa viscosupplementation) and 1% plain lidocaine Procedure: The patient tolerated the procedure well Coding - Large joint Procedure code (CPT) selection complete Results Reviewed Results Reviewed: X-rays of the patient's right knee taken previously show joint space narrowing, subchondral sclerosis, no acute bony abnormalities Assessment & Plan Assessment & Plan (1) Osteoarthritis of right knee: Code(s): M17.11 - Unilateral primary osteoarthritis, right knee Category: Medical Plan Mr. Clemons presents with right knee pain due to osteoarthritis. The risks and benefits of a series of 3 Euflexxa injections were discussed at length with the patient. The patient wishes to proceed. He tolerated the 1st injection well. He will continue with his home exercise program. He will follow up next week for his 2nd injection. Feel free to call me at any time should questions regarding his orthopedic management arise. I spent 21 minutes in reviewing the patient's records and imaging studies, seeing the patient and documenting in the medical record. Orders: Orders AMB Joint Injection/Aspiration Today M17.11 - Unilateral primary osteoa rthritis, right knee Coding Level of Care Code Est Pt Level 3 (44724) Complex EM visit Add On G2211 Diagnoses Osteoarthritis of right knee M17.11 CPT Codes Coding - Large joint: 88440 - Large joint ([id number])
== END 2024-08-12 14:58 | disposition home or self-care (01) ==
LOC: HO.HOS 14:42
PROVIDERS: PCP Internal Medicine; Visit Provider Orthopaedic Surgery
DX: M17.11 Unilateral primary osteoarthritis, right knee (principal)
CPT/HCPCS: 20610; 99213

== ENCOUNTER → 2024-08-12 14:41 | Outpatient (BNVA) | payer MEDICARE, SELFPAY | PROVIDERS: PCP Internal Medicine; Visit Provider Orthopaedic Surgery | DX: M17.11 Unilateral primary osteoarthritis, right knee (principal) | CPT/HCPCS: 20610; 99212; J2003; J7323 ==

== ENCOUNTER 2024-08-19 13:10 | Outpatient (AMB) | payer MEDICARE, SELFPAY ==
--- OUTSIDE RECORDS SUMMARY | 2024-07-28 06:15 | XMS_ITS | Continuity of Care Document ---
Author Name [facility] Organization [facility] Care Team Providers Care Water Resource Manager Name Role Phone DOD-NM Unavailable Unavailable Problems Combined list of problems from Department of Defense and Veterans Affairs facilities. It does not include entries that were removed or entered in error. Problem Status Onset Date Problem Type Date of Resolution Comments Source AF - Atrial Fibrillation ([facility] [id number]) Active Condition [facility] Benign prostatic hyperplasia Active Condition [facility] COPD - Chronic Obstructive Pulmonary Disease ([facility] [id number]) Active Condition [facility] [place] [...] Encounter for other administrative examinations [facility] Medications Combined list of outpatient medications from [...] BREATH RESPIR ATORY (INHAL ATION) ACTIVE 02/20/2025 [id number] DAVID MUSA IG P 2024 1 [facility] ALBUTEROL 90MCG/ACTUA T (CFC-F) INHL,ORAL,8 .5GM DOSE COUNTER INHALE 2 PUFFS BY MOUTH EVERY 4 HOURS NEEDED FOR BRONCHOS PASM RESPIR ATORY (INHAL ATION) DISCONT INUED 12/27/2024 [id number] TERRIE DIAZ 2023 1 [facility] [place] [facility] ALBUTEROL INHALER INHL,ORAL INHALE BY MOUTH RESPIR ATORY (INHAL ATION) ACTIVE Sebastian MORA 2022 [facility] ATORVASTATI N TAB TAKE BY MOUTH ORAL ACTIVE Sebastian MORA 2022 [facility] CARBAMIDE PEROXIDE 6.5%/GLYCER IN SOLN,OTIC INSTILL 5 DROPS INTO EACH EAR ONCE 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 (OTIC) 01/26/2024 [id number] TERRIE DIAZ 2023 15 [facility] CARBOXYMETH YLCELLULOSE NA 0.5% SOLN,OPH INSTILL 1 DROP INTO EACH EYE FOUR TIMES DAILY NEEDED FOR DRY EYE OPHTHA LMIC ACTIVE 03/25/2025 [id number] 5 Chioma ALBRECHT 2024 15 [facility] LEVOTHYROXI NE NA 200MCG TAB (SYNTHROID) TAKE ONE TABLET BY MOUTH EVERY MONTH ORAL ACTIVE TERRIE DIAZ 2018 [facility] LEVOTHYROXI NE NA 200MCG TAB (SYNTHROID) TAKE ONE TABLET BY MOUTH EVERY MORNING 30 MINUTES BEFORE BREAKFAS T ORAL ACTIVE TERRIE DIAZ 2017 [facility] MINERAL OIL,LIGHT/P ETROLATUM (PF) OINT,OPH APPLY THIN RIBBON INTO EACH EYE AT BEDTIME FOR DRY EYE OPHTHA LMIC 03/25/2024 [id number] 5 Chioma ALBRECHT NDREW E 2023 3 [facility] OLODATEROL 2.5MCG/TIOT ROPIUM 2.5MCG/ACTU AT INHL,ORAL,6 0D,4GM INHALE 2 PUFFS (1 DOSE) BY MOUTH ONCE DAILY RESPIR ATORY (INHAL ATION) ACTIVE 03/26/2025 [id number] 5 DIMPLE,PATIENT SERVICE ASSOCIATE IG P 2024 3 [facility] OLODATEROL 2.5MCG/TIOT ROPIUM 2.5MCG/ACTU AT INHL,ORAL,6 0D,4GM INHALE 2 PUFFS (1 DOSE) BY MOUTH ONCE DAILY RESPIR ATORY (INHAL ATION) DISCONT INUED 02/21/2025 [id number] 5 DIMPLE,PATIENT SERVICE ASSOCIATE IG P 2024 1 [facility] UMECLIDINIU M 62.5MCG/BRIAN ANTEROL 25MCG/ACTUA T INH,ORAL,30 D INHALE 1 INHALATI ON BY MOUTH ONCE DAILY RESPIR ATORY (INHAL ATION) ACTIVE TERRIE DIAZ 2022 [facility] UMECLIDINIU M/VILANTERO L (ANORO) INHL,ORAL INHALE BY MOUTH ONCE DAILY RESPIR ATORY (INHAL ATION) ACTIVE Sebastian MORA 2022 [facility] Immunizations Combined list of available immunizations from the Department of Defense and Veterans Affairs facilities. Immunization Series Date Given Administered By Site Reaction Lot Number CVX Code Drug Feeder Switchboard Operator Status Comments Source COVID-19 (MODERNA), MRNA, LNP-S, PF, 100 MCG/0.5 ML DOSE 2 2020 207 complet ed MOD; [id number]; 1 [facility] [...] Dec 27, 2023 03:31 PM Reporting Lab: [facility] [facility] [address] [facility] [address] Performing Lab: [facility] [place] [facility] [address] [facility] [address] [facility] HEMOGLOBI N A1C PANEL HEMOGLOBIN A1C/HEMOGLO BIN.TOTAL [...] PM Reporting Lab: [facility] [place] [address] [address] Performing Lab: [facility] [place] [address] [address] [facility] CBC LEUKOCYTES [#/VOLUME] IN BLOOD BY AUTOMATED COUNT 7.94 10*3/u L 4.50 - 11.00 12/26 Specimen Type: BLOOD No comment entered. Ordering Provider: MANOLO DIAZ Report Released Date/Time: Dec 27, 2023 03:31 PM Reporting Lab: [facility] [place] [facility] [address] [facility] [address] Performing Lab: [facility] [place] [facility] [address] [facility] [address] [facility] [place] [facility] CBC ERYTHROCYTE S [#/VOLUME] IN BLOOD BY AUTOMATED COUNT 4.90 10*6/u L 4.23 - 5.66 12/26 Specimen Type: BLOOD No comment entered. Ordering Provider: MANOLO DIAZ Report Released Date/Time: Dec 27, 2023 03:31 PM Reporting Lab: [facility] [place] [address] [address] Performing Lab: [facility] [place] [address] [address] [facility] CBC HEMOGLOBIN [MASS/VOLUM E] IN BLOOD 14.7 g/dL 12.8 - 17 12/26 Specimen Type: BLOOD No comment entered. Ordering Provider: MANOLO DIAZ Report Released Date/Time: Dec 27, 2023 03:31 PM Reporting Lab: [facility] [place] [facility] [address] [facility] [address] Performing Lab: [facility] [place] [facility] [address] [facility] [address] [facility] CBC HEMATOCRIT [VOLUME FRACTION] OF BLOOD BY AUTOMATED COUNT 43.5 39.2 - 50.4 12/26 Specimen Type: BLOOD No comment entered. Ordering Provider: MANOLO DIAZ Report Released Date/Time: Dec 27, 2023 03:31 PM Reporting Lab: [facility] [place] [facility] [address] [facility] [address] Performing Lab: [facility] [place] [facility] [address] [facility] [address] [facility] [place] [facility] CBC MCV [ENTITIC VOLUME] BY AUTOMATED COUNT 88.8 fL 82 - 99 12/26 Specimen Type: BLOOD No comment entered. Ordering Provider: MANOLO DIAZ Report Released Date/Time: Dec 27, 2023 03:31 PM Reporting Lab: [facility] [place] [facility] [address] [facility] [address] Performing Lab: [facility] [place] [facility] [address] [facility] [address] [facility] [place] [facility] CBC MCHC [MASS/VOLUM E] BY AUTOMATED COUNT 33.8 g/dL 30.8 - 35.1 12/26 Specimen Type: BLOOD No comment entered. Ordering Provider: MANOLO DIAZ Report Released Date/Time: Dec 27, 2023 03:31 PM Reporting Lab: [facility] [place] [facility] [address] [facility] [address] Performing Lab: [facility] [place] [facility] [address] [facility] [address] [facility] [place] [facility] CBC PLATELETS [#/VOLUME] IN BLOOD BY AUTOMATED COUNT 263 10*3/u L 140 - 360 12/26 Specimen Type: BLOOD No comment entered. Ordering Provider: MANOLO DIAZ Report Released Date/Time: Dec 27, 2023 03:31 PM Reporting Lab: [facility] [address] [facility] [address] Performing Lab: [facility] [address] [facility] [address] [facility] CBC ERYTHROCYTE DISTRIBUTIO N WIDTH [RATIO] BY AUTOMATED COUNT 13.2 12.0 - 16.0 12/26 Specimen Type: BLOOD No comment entered. Ordering Provider: MANOLO DIAZ Report Released Date/Time: Dec 27, 2023 03:31 PM Reporting Lab: [facility] [address] [facility] [address] Performing Lab: [facility] [address] [facility] [address] [facility] CBC MCH [ENTITIC MASS] BY AUTOMATED COUNT 30.0 pg 26.2 - 32.6 12/26 Specimen Type: BLOOD No comment entered. Ordering Provider: MANOLO DIAZ Report Released Date/Time: Dec 27, 2023 03:31 PM Reporting Lab: [facility] [place] [facility] [address] [facility] [address] Performing Lab: [facility] [place] [facility] [address] [facility] [address] [facility] [place] [facility] LIVER FUNCTION PROTEIN [MASS/VOLUM E] IN SERUM OR PLASMA 6.4 g/dL 6.0 - 8.3 12/26 Specimen Type: SERUM No comment entered. Ordering Provider: MANOLO DIAZ Report Released Date/Time: Dec 27, 2023 03:31 PM Reporting Lab: [facility] [address] [facility] [address] Performing Lab: [facility] [address] [facility] [address] [facility] LIVER FUNCTION ALBUMIN [MASS/VOLUM E] IN SERUM OR PLASMA 3.8 g/dL 3.5 - 5.0 12/26 Specimen Type: SERUM No comment entered. Ordering Provider: MANOLO DIAZ Report Released Date/Time: Dec 27, 2023 03:31 PM Reporting Lab: [facility] [address] [facility] [address] Performing Lab: [facility] [address] [facility] [address] [facility] LIVER FUNCTION ALKALINE PHOSPHATASE [ENZYMATIC ACTIVITY/VO LUME] IN SERUM OR PLASMA 56 U/L 40 - 150 12/26 Specimen Type: SERUM No comment entered. Ordering Provider: MANOLO DIAZ Report Released Date/Time: Dec 27, 2023 03:31 PM Reporting Lab: [facility] [place] [facility] [address] [facility] [address] Performing Lab: [facility] [place] [facility] [address] [facility] [address] [facility] LIVER FUNCTION ASPARTATE AMINOTRANSF ERASE [ENZYMATIC ACTIVITY/VO LUME] IN SERUM OR PLASMA 18 U/L 5 - 34 12/26 Specimen Type: SERUM No comment entered. Ordering Provider: MANOLO DIAZ Report Released Date/Time: Dec 27, 2023 03:31 PM Reporting Lab: [facility] [place] [facility] [address] [facility] [address] Performing Lab: [facility] [address] [facility] [address] [facility] LIVER FUNCTION ALANINE AMINOTRANSF ERASE [ENZYMATIC ACTIVITY/VO LUME] IN SERUM OR PLASMA 15 U/L 12/26 Specimen Type: SERUM No comment entered. Ordering Provider: MANOLO DIAZ Report Released Date/Time: Dec 27, 2023 03:31 PM Reporting Lab: [facility] [place] [facility] [address] [facility] [address] Performing Lab: [facility] [address] [facility] [address] [facility] LIVER FUNCTION BILIRUBIN.T OTAL [MASS/VOLUM E] IN SERUM OR PLASMA 0.6 mg/dL 0.2 - 1.2 12/26 Specimen Type: SERUM No comment entered. Ordering Provider: MANOLO DIAZ Report Released Date/Time: Dec 27, 2023 03:31 PM Reporting Lab: [facility] [address] [address] Performing Lab: [facility] TRN [facility] [address] [facility] BASIC METABOLIC PANEL (non-fast ing) UREA NITROGEN [MASS/VOLUM E] IN SERUM OR PLASMA 17 mg/dL 7 - 25 12/26 Specimen Type: SERUM No comment entered. Ordering Provider: MANOLO DIAZ Report Released Date/Time: Dec 27, 2023 03:31 PM Reporting Lab: [facility]N [facility]ENTERUSE[address] [address] Performing Lab: [facility] W[facility]N [facility]ENTERUSE[address] [address] [facility] BASIC METABOLIC PANEL (non-fast ing) GLUCOSE [MASS/VOLUM E] IN SERUM OR PLASMA 89 mg/dL 65 - 100 12/26 Specimen Type: SERUM No comment entered. Ordering Provider: MANOLO DIAZ Report Released Date/Time: Dec 27, 2023 03:31 PM Reporting Lab: [facility]ENTERUSE[address] [address] Performing Lab: [facility] W[facility]N [facility]ENTERUSE[address] [address] [facility]N [facility] BASIC METABOLIC PANEL (non-fast ing) SODIUM [MOLES/VOLU ME] IN SERUM OR PLASMA 140 mmol/L 135 - 145 12/26 Specimen Type: SERUM No comment entered. Ordering Provider: MANOLO DIAZ Report Released Date/Time: Dec 27, 2023 03:31 PM Reporting Lab: [facility]ENTER[facility] [address] Performing Lab: [facility] [place] [facility] [address] [facility] [address] [facility] BASIC METABOLIC PANEL (non-fast ing) POTASSIUM [MOLES/VOLU ME] IN SERUM OR PLASMA 4.0 mmol/L 3.5 - 5.0 12/26 Specimen Type: SERUM No comment entered. Ordering Provider: MANOLO DIAZ Report Released Date/Time: Dec 27, 2023 03:31 PM Reporting Lab: [facility] [place] [facility] [address] [facility] [address] Performing Lab: [facility] W[facility]N [facility]USE[facility] [address] [facility] [address] [facility]OSPITALRWALKER BAPTIST MEDICAL CENTERTRN [facility]ENTERUSE [facility] BASIC METABOLIC PANEL (non-fast ing) CHLORIDE [MOLES/VOLU ME] IN SERUM OR PLASMA 107 mmol/L 100 - 110 12/26 Specimen Type: SERUM No comment entered. Ordering Provider: MANOLO DIAZ Report Released Date/Time: Dec 27, 2023 03:31 PM Reporting Lab: [facility]PITALRWALKER BAPTIST MEDICAL CENTERTRN [facility]ENTERUSETS [facility] [address] [facility] [address] Performing Lab: [facility] WSTRN [facility]US[facility] [address] [facility] [address] [facility] TRN [facility]ENTERUSE [facility] BASIC METABOLIC PANEL (non-fast ing) CARBON DIOXIDE, TOTAL [MOLES/VOLU ME] IN SERUM OR PLASMA 23 meq/L 20 - 30 12/26 Specimen Type: SERUM No comment entered. Ordering Provider: MANOLO DIAZ Report Released Date/Time: Dec 27, 2023 03:31 PM Reporting Lab: [facility] [place] [facility] [address] [facility] [address] Performing Lab: [facility]N [facility]US[facility] [address] [facility] [address] [facility]ITALRWALKER BAPTIST MEDICAL CENTERTRN [facility]ENTERUSE [facility] BASIC METABOLIC PANEL (non-fast ing) CREATININE [MASS/VOLUM E] IN SERUM OR PLASMA 0.96 mg/dL 0.50 - 1.40 12/26 Specimen Type: SERUM No comment entered. Ordering Provider: MANOLO DIAZ Report Released Date/Time: Dec 27, 2023 03:31 PM Reporting Lab: [facility]PITALRWALKER BAP[facility]IST MED[facility] CENTERTRN [place] [facility] [address] [facility] [address] Performing Lab: [facility]PITALRWALKER BAPTIST MEDICAL CENTERTRN [facility]ENTERUSETS [facility] [address] [facility] [address] [facility]ITALRNORTH ALABAMA REG[facility] HOSPITALN [facility]ENTERCHUSE [facility] BASIC METABOLIC PANEL (non-fast ing) GLOMERULAR FILTRATION RATE/1.73 SQ M.PREDICTED [VOLUME RATE/AREA] IN SERUM, PLASMA OR BLOOD BY CREATININE- BASED FORMULA (CKD-EPI 2020) 81 mL/min 60 12/26 Specimen Type: SERUM No comment entered. Ordering Provider: MANOLO DIAZ Report Released Date/Time: Dec 27, 2023 03:31 PM Reporting Lab: [facility]PITALRNORTH [facility]AMA [facility] HOSPITALN [facility]ENTERUSE[address] [address] Performing Lab: [facility]OSPITALRNORTH AL[facility]AMA REG[facility]AL HOSPITALN [facility]ENTERUSE[facility] [address] [facility] [address] [facility]ENTERUSE [facility] LIPID PANEL, NON FASTING CHOLESTEROL [MASS/VOLUM E] IN SERUM OR PLASMA 153 mg/dL 12/26 Specimen Type: SERUM No comment entered. Ordering Provider: MANOLO DIAZ Report Released Date/Time: Dec 27, 2023 03:31 PM Reporting Lab: [facility]PITALRNORTH AL[facility]AMA REG[facility]AL HOSPITALN [facility]ENTERUSE[address] [address] Performing Lab: [facility]ITALRNORTH [facility] HOSPITALN [facility] CENTERUSETS [facility] [address] [facility] [address] [facility]ITALRNORTH [facility] HOSPITALN [facility]ENTERUSE [facility] LIPID PANEL, NON FASTING TRIGLYCERID E [MASS/VOLUM E] IN SERUM OR PLASMA 105 mg/dL 0 - 150 12/26 Specimen Type: SERUM No comment entered. Ordering Provider: MANOLO DIAZ Report Released Date/Time: Dec 27, 2023 03:31 PM Reporting Lab: [facility]ITALRNORTH [facility]AMA [facility] HOSPITALN [facility]ENTERUSE[address] [address] Performing Lab: [facility]ITALRNORTH [facility] HOSPITALN [facility]ENTERUSE[address] [address] [facility]ITALRL [facility] [place] [facility] LIPID PANEL, NON FASTING CHOLESTEROL IN LDL [MASS/VOLUM E] IN SERUM OR PLASMA BY CALCULATION 86 mg/dL 0 - 129 12/26 Specimen Type: SERUM No comment entered. Ordering Provider: MANOLO DIAZ Report Released Date/Time: Dec 27, 2023 03:31 PM Reporting Lab: [facility] [place] [facility] [address] [facility] [address] Performing Lab: [facility] [place] [facility] [address] [facility] [address] [facility]ITALRL [facility]N [facility] LIPID PANEL, NON FASTING CHOLESTEROL .TOTAL/CHOL ESTEROL IN HDL [MASS RATIO] IN SERUM OR PLASMA 3.3 12/26 Specimen Type: SERUM No comment entered. Ordering Provider: MANOLO DIAZ Report Released Date/Time: Dec 27, 2023 03:31 PM Reporting Lab: [facility] [place] [facility] [address] [facility] [address] Performing Lab: [facility] [place] [facility] [address] [facility] [address] [facility]ITALRL [facility]N [place] [facility] LIPID PANEL, NON FASTING CHOLESTEROL IN HDL [MASS/VOLUM E] IN SERUM OR PLASMA 46 mg/dL 40 - 60 12/26 Specimen Type: SERUM No comment entered. Ordering Provider: MANOLO DIAZ Report Released Date/Time: Dec 27, 2023 03:31 PM Reporting Lab: [facility] [place] [facility] [address] [facility] [address] Performing Lab: [facility] [place] [address] [address] [facility]ITALRL [facility]N [place] [facility] Vital Signs Combined list of inpatient and outpatient Vital Signs from Department of Defense and Veterans Affairs, ranging from 12 months to all on record, depending upon the facility. Vital Sign Value Date Comments Source SYSTOLIC BLOOD PRESSURE 132 01/10/20 24 13:41:12 [facility] [place] [facility] DIASTOLIC BLOOD PRESSURE 78 024 13:41:12 [facility] [...] Disposition Source [facility] Outpatient Encounter [id number] Diagnos is: ICD-10- CM Z02.89 Encount er for other adminis trative examina tiASHLEY Chávez 03/14 [facility] [place] [facility] [place] 1/ [id number] Diagnos is: ICD-10- CM H40.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 DOMINIC ALBRECHT E 03/25 [facility] FIT SPECTACLES MULTIFOCAL [id number] Diagnos is: ICD-10- CM Z46.0 Encount er for fit/adj st of spectac les and contact lenses DOMINIC ALBRECHT E 03/26 [facility] En[facility] [id number] TAYLOR PORRAS ISTOPHER E 05/13 [facility] En[facility] [id number] 05/14 [facility] En[facility] [id number] 05/15 [facility] En[facility] [id number] 07/01 [facility] En[facility] [id number] Diagnos is: ICD-10- CM Z02.89 Encount er for other adminis trative examina ASHLEY Barnes 07/03 [facility] En[facility] [id number] 07/10 [facility] En[facility] [id number] 10/27 [facility] En[facility] [id number] 11/04 [facility] En[facility] [id number] 11/28 [facility] En[facility] [id number] 12/22 [facility] En[facility] [id number] 12/25 [facility] OFFICE O/P EST MOD 30 MIN [id number] Diagnos is: ICD-10- CM Z86.018 Persona l history of other benign neoplas GABRIELLA Piper 12/25 [facility] OFFICE O/P EST MOD 30 MIN [id number] Diagnos is: ICD-10- CM I48.91 Unspeci fied atrial fibrill ation Terri DIAZ 12/26 [facility] OFF/OP EST MAY X REQ PHY/QHP [id number] 1. 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 Diagnos is: ICD-10- CM Z46.0 Encount er for fit/adj st of spectac les and contact lenses DOMINIC ALBRECHT E 03/25 [facility] Outpatient Encounter [id number] 04/02 [facility] Out[facility] Encounter [id number] NIRMAL TOM 06/15 [facility] Social History Combined list of available smoking, tobacco, and other social history from [facility] of Defense and [facility] facilities. Social History Type Response Date Comment Sourc e Tobacco smoking status [facility] VA-TOBACCO FORMER USER 12/27/2023 [facility] of [facility]23 [facility]2022 [facility] [place]2021 [facility] [place] [facility] History [facility] tobacco use NM-TOBACCO FORMER USER [facility] [facility] History of tobacco use QUIT TOBACCO USE > 7 YEARS AGO 09[facility]17/2017 [facility] Plan of Care List of future care activities from [facility] facilities. Additional future care activities may be listed in the Assessment and Plan section. Date/Time Care Activity Care Activity Detail Facili ty 12/24/2024 AM[facility] - MEDICINE [facility]
--- NOTE | 2024-08-19 13:15 | MHC.OFFVIS ---
Vital Signs 08/19/24 13:18 Height 6 ft 3 in Weight 240 lb BMI 30.0 Intake Visit Reasons: Inj- Right knee Euflexxa #2 Intake Note: Evert is a 79 year old male who presents today for his second dose of his right knee Euflexxa gel injections. He states that he got mild relief from the 1st injection. He continues with his home exercise program. Allergies No Known Allergies Allergy (Verified 08/19/24 13:18) Medication List - Last Reconciled 08/20/24 by Oniel Javier MD albuterol sulfate 90 mcg/actuation 2 puffs inhalation Q4H PRN 90 days albuterol sulfate 2.5 mg (3 mL) inhalation .q 4h PRN atorvastatin 20 mg PO DAILY 90 days furosemide 20 - 40 mg (1 - 2 x 20 mg) PO DAILY PRN levothyroxine 200 mcg PO DAILY naproxen 500 mg PO Q12H PRN nebulizers nebulizer with tubing NS pregabalin 150 mg PO BID 90 days tiotropium-olodaterol 2.5-2.5 mcg/actuation (Stiolto Respimat) 2 puffs inhalation DAILY PFSH Surgical History Hx of spinal surgery History of ptosis repair Voice impairment History of transurethral resection of prostate Epidermal inclusion cyst History of right knee surgery S/P foot surgery, right Right shoulder injury History of thyroidectomy Neoplasm of right patella Inguinal hernia bilateral, non-recurrent Left hand pain Family History Mother Coronary artery disease Pulmonary embolism Father Cancer of prostate Social History Housing: House Alcohol intake: never Patient Tobacco Use Status: Former Tobacco user Cigarette Packs Per Day: 0.5 Years Smoked: 3 e-Cigarette/Vaping Use: Never Used Second Hand Smoke Exposure: No service: Yes Current occupational status: retired Cognitive needs: No Hearing needs: Yes (bilateral hearing aids) Vision needs: Yes (glasses) Physical Exam Vital Signs: BMI result Body Mass Index 30.0 Extrem Other: Right knee examination shows a minimal effusion, palpable crepitus with range of motion, pain with range of motion, no instability Office Procedures AMB Joint Injection/Aspiration Joint Injection/Aspiration Primary Site: right knee Prep: site was prepped using aseptic technique Injected: 20 mg of (Euflexxa viscosupplementation) and 1% plain lidocaine Procedure: The patient tolerated the procedure well Coding 11129 - Large joint Procedure code (CPT) selection complete Assessment & Plan Assessment & Plan (1) Osteoarthritis of right knee: Code(s): M17.11 - Unilateral primary osteoarthritis, right knee Category: Medical Plan Mr. Clemons presents with right knee pain due to osteoarthritis. The risks and benefits of a 2nd right knee Euflexxa injection were discussed at length with the patient. The patient wished to proceed. He tolerated the injection well. He will continue with his home exercise program. He will follow up for his 3rd injection next week. Feel free to call me at any time should questions regarding his orthopedic management arise. Orders: Orders AMB Joint Injection/Aspiration 08/19/24 M17.11 - Unilateral primary osteoarthritis, right knee Coding Level of Care Code Procedure Only Diagnoses Osteoarthritis of right knee M17.11 CPT Codes Coding - 96766 Large joint: 10001 - Large joint ([id number])
--- OUTSIDE RECORDS SUMMARY | 2024-08-19 13:46 | XMS_ITS | Encounter Summary ---
Author Organization [facility] Address [address] [place] [address] Care Team Providers Care Stone Driller Name Role Phone Ricky West MD Primary Care Provider Aaliyah Jefferson MD Primary Care Provider Clarice Mac, Pcp Primary Care Provider Manuel shore Encounter Details Date Type Department Care Team Description 06/18/2014 Local Superintendent Report Medical Records [address] [place] [address] Milo Park MD Social History Tobacco Use [...] on filedocumented in this encounter Care Teams Stone Driller Relationship Specialty Start Date End Date Ricky West MD PCP - General Internal Medicine 01/02/13 01/03/15 Aaliyah Smith MD PCP - General Internal Medicine 01/04/15 09/22/20 [facility], Pcp PCP - General Internal Medicine 09/23/20 documented as of this encounter
--- OUTSIDE RECORDS SUMMARY | 2024-08-19 13:46 | XMS_ITS | Clinical Summary ---
Author Organization [facility] Address [address] [place], [place] [id number] Care Team Providers Care Ortho Rn Name Role Phone Aaliyah Carrillo MD Primary Care Provider [phone] Allergies No known active allergies Medications Medication [...] - 1-dose 75+ series) 2022 Influenza Vaccine (Season Ended) 2024 12/28/2016, 12/11/2013 Shingrix-Zoster Vaccine Completed 07/18/19, 03/19/2018 Pneumococcal Vaccine Completed 01/11/2021, 02/06/2018, 12/16/2015 Hepatitis B Vaccines Aged Out No long er eligible based on patient's age to complete this topic RSV Ped < 20 months Aged Out No longe r eligible based on patient's age to complete this topic Care Teams Ortho Rn Relationship Specialty Start Date End Date Aaliyah Carrillo MD PCP - General Internal Medicine 08/24/19
--- OUTSIDE RECORDS SUMMARY | 2024-08-19 13:46 | XMS_ITS | Encounter Summary ---
Author Organization [facility] Address [address] [place] [address] Care Team Providers Care Tractor Operator Name Role Phone Pcp, No Primary Care Provider Unavailabl e Unknown Primary Care Provider [phone] Aaliyah Carrillo MD Primary Care Provider [phone] Encounter Details Date Type Department Care Team (Late st Contact Info) Description 12/19/2020 Scanned Document [facility] Heart & Vascular [place] at [address] [phone] Provider, External, [address] [place] [id number] Social History Tobacco Use Types Packs/Day Years [...] on filedocumented in this encounter Care Teams Tractor Operator Relationship Specialty Start Date End Date Pcp, No PCP - General General Medicine 12/19/20 04/14/23 Unknown Unknow Provider Address PCP - General 04/16/23 06/11/23 Aaliyah Carrillo MD [address] [place] [phone] PCP - General Internal Medicine 06/12/23 Aaliyah Carrillo [address] [place] [address], [place] [phone], [place] [address] Primary Care Provider Internal Medicine 04/15/23 Aaliyahdarryl Carrillo [address] [place] [address], [address] [address] Primary Care Provider Internal Medicine 04/15/23 Benji Hardwick [address] [place] [phone] Physician Pulmonary Disease 04/15/23 documented as of this encounter
--- OUTSIDE RECORDS SUMMARY | 2024-08-19 13:46 | XMS_ITS ---
Author Name [facility] Organization Unknown History of Medication Use Medication Directions Dispensed Refills Start Date End Date Stat us senna-docusate (SENNA-S) 8.6-50 MG Take 2 tablets by mouth nightly. 06/13/2023 07/14/2023 active HYDROmorphone (DILAUDID) 2 MG tablet Take 1 tablet (2 mg total) by mouth Every 4 (four) to 6 (six) hours as needed for severe pain. Max Daily Amount: 12 mg 06/13/2023 active albuterol (PROVENTIL HFA; VENTOLIN HFA) 108 (90 Base) MCG/ACT inhaler Inhale 2 puffs 4 times daily (every 6 hours) as needed. 12/25/2022 active atorvastatin (LIPITOR) 20 MG tablet Take 1 tablet (20 mg total) by mouth every evening. 10/26/2022 active gabapentin (NEURONTIN) 300 MG capsule TAKE 1 CAPSULE BY MOUTH 3 TIMES A DAY FOR 90 DAYS 09/24/2022 active levothyroxine (SYNTHROID, LEVOTHROID) 200 MCG tablet 1 tab, orally daily, take an extra tab 2 days/month 05/21/2022 active Problems Problem Status Onset Date Problem Type Date of Resoluti on Source Disease of spinal cord active 2023-06-12 ProblemAct [facility] Neurogenic claudication due to lumbar spinal stenosis active 2023-06-12 ProblemAct CCT Encounters Encounter Type Encounter Reason Primary Diagnosis Location Date Ambulatory Other specified postprocedural states Other specified postprocedural states [facility] 08/09/2023 Ambulatory Other specified postprocedural states Other specified postprocedural states [facility] 07/01/2023 Inpatient Spinal stenosis, lumbar region with neurogenic claudication Spinal stenosis, lumbar region with neurogenic claudication [facility] 06/12/2023 Ambulatory [facility] 04/22/2023 Ambulatory [facility] 04/17/2023 Ambulatory Spinal stenosis, lumbar region with neurogenic claudication Spinal stenosis, lumbar region with neurogenic claudication [facility] 04/15/2023 Ambulatory Spinal stenosis, lumbar region with neurogenic claudication Spinal stenosis, lumbar region with neurogenic claudication [facility] 03/08/2023 Ambulatory [facility] 02/12/2023 Ambulatory Other intervertebral disc degeneration, lumbar region Other intervertebral disc degeneration, lumbar region [facility] 01/14/2023 Ambulatory [facility] 01/14/2023 Ambulatory [facility] 01/14/2023 Ambulatory [facility] 01/14/2023 Ambulatory [facility] 01/14/2023 Ambulatory [facility] 01/14/2023 Ambulatory [facility] 01/14/2023 Ambulatory [facility] 01/14/2023 Ambulatory Other intervertebral disc degeneration, lumbar region Other intervertebral disc degeneration, lumbar region [facility] 01/14/2023 Ambulatory Malignant neopla sm of esophagus, unspecified [facility] 12/19/2020 Care Team Organization Name Specialty Phone Email Start Date End Da aiyana [facility] Aaliyah Carrillo Primary Care 06/12/2023 [facility] 04/15/2023 [facility] PCP,No Primary Care 12/19/2020 05/06/2024 [facility] NO PCP Primary Care 12/19/2020 12/19/2020
--- OUTSIDE RECORDS SUMMARY | 2024-08-19 13:46 | XMS_ITS | Clinical Summary ---
Author Organization [employer] Address [address] [facility] [address] [place] [address] Care Team Providers Care Laundry Sorter Name Role Phone Unavailable Primary Care Provider [...] - 1-dose 75+ series) 2022 COVID-19 Vaccine (1 - 2023-2 5 season) 2023 Influenza Vaccine (Season Ended) 2024 HIB Vaccines Aged Out No longer eligi [...]
== END 2024-08-19 13:41 | disposition home or self-care (01) ==
LOC: HO.HOS 13:11
PROVIDERS: PCP Internal Medicine; Visit Provider Orthopaedic Surgery
DX: M17.11 Unilateral primary osteoarthritis, right knee (principal)
CPT/HCPCS: 20610

== ENCOUNTER → 2024-08-19 13:10 | Outpatient (BNVA) | payer MEDICARE, SELFPAY | PROVIDERS: PCP Internal Medicine; Visit Provider Orthopaedic Surgery | DX: M17.11 Unilateral primary osteoarthritis, right knee (principal) | CPT/HCPCS: 20610; J1010; J2003; J7323 ==

== ENCOUNTER 2024-08-26 10:32 | Outpatient (AMB) | payer MEDICARE, SELFPAY ==
--- OUTSIDE RECORDS SUMMARY | 2024-07-28 06:15 | XMS_ITS | Continuity of Care Document ---
Author Name [facility] Organization [facility] Care Team Providers Care Surgery Scheduling Coordinator Name Role Phone [facility] Unavailable Unavailable Problems Combined list of problems from Department of Defense and Veterans Affairs facilities. It does not include entries that were removed or entered in error. Problem Status Onset Date Problem Type Date of Resolution Comments Source AF - Atrial Fibrillation ([facility] [id number]) Active Condition [facility] Benign prostatic hyperplasia Active Condition [facility] COPD - Chronic Obstructive Pulmonary Disease ([facility] [id number]) Active [facility] [place] [...] Encounter for other administrative examinations [facility] Medications Combined list of outpatient medications [...] BREATH RESPIR ATORY (INHAL ATION) ACTIVE 02/20/2025 [id number] DAVID MUSA IG P 2024 1 [facility] ALBUTEROL 90MCG/ACTUA T (CFC-F) INHL,ORAL,8 .5GM DOSE COUNTER INHALE 2 PUFFS BY MOUTH EVERY 4 HOURS NEEDED FOR BRONCHOS PASM RESPIR ATORY (INHAL ATION) DISCONT INUED 12/27/2024 [id number] TERRIE DIAZ 2023 1 [facility] ALBUTEROL INHALER INHL,ORAL INHALE BY MOUTH RESPIR ATORY (INHAL ATION) ACTIVE Sebastian [facility]A [facility] ATORVASTATI N TAB TAKE BY MOUTH ORAL ACTIVE Sebastain MORA 2022 [facility] CARBAMIDE PEROXIDE 6.5%/GLYCER IN SOLN,OTIC INSTILL 5 DROPS INTO EACH EAR ONCE 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 (OTIC) 01/26/2024 [id number] TERRIE DIAZ 2023 15 [facility] CARBOXYMETH YLCELLULOSE NA 0.5% SOLN,OPH INSTILL 1 DROP INTO EACH EYE FOUR TIMES DAILY NEEDED FOR DRY EYE OPHTHA LMIC ACTIVE 03/25/2025 [id number] 5 Chioma ALBRECHT 2024 15 [facility] LEVOTHYROXI NE NA 200MCG TAB (SYNTHROID) TAKE ONE TABLET BY MOUTH EVERY MONTH ORAL ACTIVE TERRIE DIAZ 2018 [facility] LEVOTHYROXI NE NA 200MCG TAB (SYNTHROID) TAKE ONE TABLET BY MOUTH EVERY MORNING 30 MINUTES BEFORE BREAKFAS T ORAL ACTIVE TERRIE DIAZ 2017 [facility] MINERAL OIL,LIGHT/P ETROLATUM (PF) OINT,OPH APPLY THIN RIBBON INTO EACH EYE AT BEDTIME FOR DRY EYE OPHTHA LMIC 03/25/2024 [id number] 5 Chioma ALBRECHT NDREW E 2023 3 [facility] OLODATEROL 2.5MCG/TIOT ROPIUM 2.5MCG/ACTU AT INHL,ORAL,6 0D,4GM INHALE 2 PUFFS (1 DOSE) BY MOUTH ONCE DAILY RESPIR ATORY (INHAL ATION) ACTIVE 03/26/2025 [id number] 5 DIMPLE,PRISON CLASSIFICATION COUNSELOR IG P 2024 3 [facility] OLODATEROL 2.5MCG/TIOT ROPIUM 2.5MCG/ACTU AT INHL,ORAL,6 0D,4GM INHALE 2 PUFFS (1 DOSE) BY MOUTH ONCE DAILY RESPIR ATORY (INHAL ATION) DISCONT INUED 02/21/2025 [id number] 5 DIMPLE,PRISON CLASSIFICATION COUNSELOR IG P 2024 1 [facility] UMECLIDINIU M 62.5MCG/BRIAN ANTEROL 25MCG/ACTUA T INH,ORAL,30 D INHALE 1 INHALATI ON BY MOUTH ONCE DAILY RESPIR ATORY (INHAL ATION) ACTIVE TERRIE DIAZ 2022 [facility] UMECLIDINIU M/VILANTERO L (ANORO) INHL,ORAL INHALE BY MOUTH ONCE DAILY RESPIR ATORY (INHAL ATION) ACTIVE Sebastian MORA 2022 [facility] Immunizations Combined list of available immunizations from the Department of Defense and Veterans Affairs facilities. 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 Status Comments Source COVID-19 (MODERNA), MRNA, LNP-S, PF, 100 MCG/0.5 ML DOSE 2 2020 207 complet ed MOD; [id number]; 1 [facility] [...] Dec 27, 2023 03:31 PM Reporting Lab[facility] [facility] [address] [facility] [address] Performing Lab: [facility] [place] [facility] [address] [facility] [address] [facility] HEMOGLOBI N A1C PANEL HEMOGLOBIN [...] PM Reporting Lab: [facility] [address] [address] Performing Lab: [facility] [place] [address] [address] [facility] CBC LEUKOCYTES [#/VOLUME] IN BLOOD BY AUTOMATED COUNT 7.94 10*3/u L 4.50 - 11.00 12/26 Specimen Type: BLOOD No comment entered. Ordering Provider: MANOLO DIAZ Report Released Date/Time: Dec 27, 2023 03:31 PM Reporting Lab: [facility] [place] [facility] [address] [facility] [address] Performing Lab: [place] [facility] [place] [facility] [address] [facility] [address] [facility] [place] [facility] CBC ERYTHROCYTE S [#/VOLUME] IN BLOOD BY AUTOMATED COUNT 4.90 10*6/u L 4.23 - 5.66 12/26 Specimen Type: BLOOD No comment entered. Ordering Provider: MANOLO DIAZ Report Released Date/Time: Dec 27, 2023 03:31 PM Reporting Lab: [facility] [place] [address] [address] Performing Lab: [facility] [place] [address] [address] [facility] [place] [facility] CBC HEMOGLOBIN [MASS/VOLUM E] IN BLOOD 14.7 g/dL 12.8 - 17 12/26 Specimen Type: BLOOD No comment entered. Ordering Provider: MANOLO DIAZ Report Released Date/Time: Dec 27, 2023 03:31 PM Reporting Lab: [facility] [place] [facility] [address] [facility] [address] Performing Lab: [facility] [place] [facility] [address] [facility] [address] [facility] CBC HEMATOCRIT [VOLUME FRACTION] OF BLOOD BY AUTOMATED COUNT 43.5 39.2 - 50.4 12/26 Specimen Type: BLOOD No comment entered. Ordering Provider: MANOLO DIAZ Report Released Date/Time: Dec 27, 2023 03:31 PM Reporting Lab: [facility] [place] [facility] [address] [facility] [address] Performing Lab: [facility] [facility] [place] [facility] [address] [facility] [address] [facility] [place] [facility] CBC MCV [ENTITIC VOLUME] BY AUTOMATED COUNT 88.8 fL 82 - 99 12/26 Specimen Type: BLOOD No comment entered. Ordering Provider: MANOLO DIAZ Report Released Date/Time: Dec 27, 2023 03:31 PM Reporting Lab: [facility] [place] [facility] [address] [facility] [address] Performing Lab: [place] [facility] [place] [facility] [address] [facility] [address] [facility] [place] [facility] CBC MCHC [MASS/VOLUM E] BY AUTOMATED COUNT 33.8 g/dL 30.8 - 35.1 12/26 Specimen Type: BLOOD No comment entered. Ordering Provider: MANOLO DIAZ Report Released Date/Time: Dec 27, 2023 03:31 PM Reporting Lab: [facility] [place] [facility] [address] [facility] [address] Performing Lab: [facility] [place] [facility] [address] [facility] [address] [facility] [place] [facility] CBC PLATELETS [#/VOLUME] IN BLOOD BY AUTOMATED COUNT 263 10*3/u L 140 - 360 12/26 Specimen Type: BLOOD No comment entered. Ordering Provider: MANOLO DIAZ Report Released Date/Time: Dec 27, 2023 03:31 PM Reporting Lab: [facility] [address] [facility] [address] Performing Lab: [facility] [address] [facility] [address] [facility] [place] [facility] CBC ERYTHROCYTE DISTRIBUTIO N WIDTH [RATIO] BY AUTOMATED COUNT 13.2 12.0 - 16.0 12/26 Specimen Type: BLOOD No comment entered. Ordering Provider: MANOLO DIAZ Report Released Date/Time: Dec 27, 2023 03:31 PM Reporting Lab: [facility] [address] [facility] [address] Performing Lab: [facility] [address] [facility] [address] [facility] [place] [facility] CBC MCH [ENTITIC MASS] BY AUTOMATED COUNT 30.0 pg 26.2 - 32.6 12/26 Specimen Type: BLOOD No comment entered. Ordering Provider: MANOLO DIAZ Report Released Date/Time: Dec 27, 2023 03:31 PM Reporting Lab: [facility] [place] [facility] [address] [facility] [address] Performing Lab: [facility] [place] [facility] [address] [facility] [address] [facility] [place] [facility] LIVER FUNCTION PROTEIN [MASS/VOLUM E] IN SERUM OR PLASMA 6.4 g/dL 6.0 - 8.3 12/26 Specimen Type: SERUM No comment entered. Ordering Provider: MANOLO DIAZ Report Released Date/Time: Dec 27, 2023 03:31 PM Reporting Lab: [facility] [address] [facility] [address] Performing Lab: [facility] [address] [facility] [address] [facility] [place] [facility] LIVER FUNCTION ALBUMIN [MASS/VOLUM E] IN SERUM OR PLASMA 3.8 g/dL 3.5 - 5.0 12/26 Specimen Type: SERUM No comment entered. Ordering Provider: MANOLO DIAZ Report Released Date/Time: Dec 27, 2023 03:31 PM Reporting Lab: [facility] [address] [facility] [address] Performing Lab: [facility] [address] [facility] [address] [facility] [place] [facility] LIVER FUNCTION ALKALINE PHOSPHATASE [ENZYMATIC ACTIVITY/VO LUME] IN SERUM OR PLASMA 56 U/L 40 - 150 12/26 Specimen Type: SERUM No comment entered. Ordering Provider: MANOLO DIAZ Report Released Date/Time: Dec 27, 2023 03:31 PM Reporting Lab: [facility] [place] [facility] [address] [facility] [address] Performing Lab: [facility] [place] [facility] [address] [facility] [address] [facility] [place] [facility] LIVER FUNCTION ASPARTATE AMINOTRANSF ERASE [ENZYMATIC ACTIVITY/VO LUME] IN SERUM OR PLASMA 18 U/L 5 - 34 12/26 Specimen Type: SERUM No comment entered. Ordering Provider: MANOLO DIAZ Report Released Date/Time: Dec 27, 2023 03:31 PM Reporting Lab: [facility] [place] [facility] [address] [facility] [address] Performing Lab: [facility] [address] [facility] [address] [facility] [place] [facility] LIVER FUNCTION ALANINE AMINOTRANSF ERASE [ENZYMATIC ACTIVITY/VO LUME] IN SERUM OR PLASMA 15 U/L 12/26 Specimen Type: SERUM No comment entered. Ordering Provider: MANOLO DIAZ Report Released Date/Time: Dec 27, 2023 03:31 PM Reporting Lab: [facility] [place] [facility] [address] [facility] [address] Performing Lab: [facility] [address] [facility] [address] [facility] [place] [facility] LIVER FUNCTION BILIRUBIN.T OTAL [MASS/VOLUM E] IN SERUM OR PLASMA 0.6 mg/dL 0.2 - 1.2 12/26 Specimen Type: SERUM No comment entered. Ordering Provider: MANOLO DIAZ Report Released Date/Time: Dec 27, 2023 03:31 PM Reporting Lab: [facility] TRN [address] [address] Performing Lab: [facility]RL TRN [facility] [address] [facility] BASIC METABOLIC PANEL (non-fast ing) UREA NITROGEN [MASS/VOLUM E] IN SERUM OR PLASMA 17 mg/dL 7 - 25 12/26 Specimen Type: SERUM No comment entered. Ordering Provider: MANOLO DIAZ Report Released Date/Time: Dec 27, 2023 03:31 PM Reporting Lab: [facility]ITALRHILL [facility] SERVICESN [facility]ITALUSE[address] [address] Performing Lab: [facility]RL WSTRN [facility]ITALUSE[address] [address] [facility] BASIC METABOLIC PANEL (non-fast ing) GLUCOSE [MASS/VOLUM E] IN SERUM OR PLASMA 89 mg/dL 65 - 100 12/26 Specimen Type: SERUM No comment entered. Ordering Provider: MANOLO DIAZ Report Released Date/Time: Dec 27, 2023 03:31 PM Reporting Lab: [facility] TRN [facility]ITALUSE[address] [address] Performing Lab: [facility]RL WSTRN [facility]USE[address] [address] [facility]RL [facility] BASIC METABOLIC PANEL (non-fast ing) SODIUM [MOLES/VOLU ME] IN SERUM OR PLASMA 140 mmol/L 135 - 145 12/26 Specimen Type: SERUM No comment entered. Ordering Provider: MANOLO DIAZ Report Released Date/Time: Dec 27, 2023 03:31 PM Reporting Lab: [facility]RL TRN [facility]USE[address] [address] Performing Lab: [facility]ITALRL [place]N [place] [facility] [address] [facility] [facility] [address] [facility]ITALRL WSTRN [place] [facility] BASIC METABOLIC PANEL (non-fast ing) POTASSIUM [MOLES/VOLU ME] IN SERUM OR PLASMA 4.0 mmol/L 3.5 - 5.0 12/26 Specimen Type: SERUM No comment entered. Ordering Provider: MANOLO DIAZ Report Released Date/Time: Dec 27, 2023 03:31 PM Reporting Lab: [facility]RL [facility]N [place] [facility] [address] [facility] [address] Performing Lab: [facility]ITALRL WSTRN [facility]ITALUSEWADSWOR[facility] [address] [address] [facility]ITALRHELEN KELLER HOSPITALTRN [facility]OSPITALUSE [facility] BASIC METABOLIC PANEL (non-fast ing) CHLORIDE [MOLES/VOLU ME] IN SERUM OR PLASMA 107 mmol/L 100 - 110 12/26 Specimen Type: SERUM No comment entered. Ordering Provider: MANOLO DIAZ Report Released Date/Time: Dec 27, 2023 03:31 PM Reporting Lab: [facility]OSPITALRHELEN KELLER HOSPITALTRN [facility]OSPITALUSETS [facility] [address] [facility] [address] Performing Lab: [facility]ITALRL WSTRN [facility]OSPITALUSETS [facility] [address] [facility] [address] [facility]ITALRL TRN [facility] HOSPITALUSE [facility] BASIC METABOLIC PANEL (non-fast ing) CARBON DIOXIDE, TOTAL [MOLES/VOLU ME] IN SERUM OR PLASMA 23 meq/L 20 - 30 12/26 Specimen Type: SERUM No comment entered. Ordering Provider: MANOLO DIAZ Report Released Date/Time: Dec 27, 2023 03:31 PM Reporting Lab: [facility]ITALRL [facility]N [place] [facility] [address] [facility] [address] Performing Lab: [facility]ITALRL WSTRN [facility]OSPITALUSETS [facility] [address] [facility] [address] [facility]OSPITALRHELEN KELLER HOSPITALTRN [facility]OSPITALUSE [facility] BASIC METABOLIC PANEL (non-fast ing) CREATININE [MASS/VOLUM E] IN SERUM OR PLASMA 0.96 mg/dL 0.50 - 1.40 12/26 Specimen Type: SERUM No comment entered. Ordering Provider: MANOLO DIAZ Report Released Date/Time: Dec 27, 2023 03:31 PM Reporting Lab: [facility]OSPITALRHELEN KELLER HOSPITALTRN [place] [facility] [address] [facility] [address] Performing Lab: [facility]OSPITALRHELEN KELLER HOSPITALTRN [facility]OSPITALUSETS [facility] [address] [facility] [address] [facility]OSPITALRHILL CREST BEHAVIOR[facility] HEALTH SERVICESN [facility] HOSPITALCHUSE [facility] BASIC METABOLIC PANEL (non-fast ing) GLOMERULAR FILTRATION RATE/1.73 SQ M.PREDICTED [VOLUME RATE/AREA] IN SERUM, PLASMA OR BLOOD BY CREATININE- BASED FORMULA (CKD-EPI 2020) 81 mL/min 60 12/26 Specimen Type: SERUM No comment entered. Ordering Provider: MANOLO DIAZ Report Released Date/Time: Dec 27, 2023 03:31 PM Reporting Lab: [facility]OSPITALRHILL [facility] BEH[facility]IOR[facility] HEALTH SERVICESN [facility]ITALUSE[address] [address] Performing Lab: [facility]OSPITALRHILL [facility]ALTH SERVICESN [facility]OSPITALUSEWADSWORTH [facility]OSPITAL [address] [facility] [address] [facility]ERN [facility] HOSPITALUSE [facility] LIPID PANEL, NON FASTING CHOLESTEROL [MASS/VOLUM E] IN SERUM OR PLASMA 153 mg/dL 12/26 Specimen Type: SERUM No comment entered. Ordering Provider: MANOLO DIAZ Report Released Date/Time: Dec 27, 2023 03:31 PM Reporting Lab: [facility]OSPITALRHILL [facility]IOR[facility] HEALTH SERVICESN [facility]ITALUSE[address] [address] Performing Lab: [facility]OSPITALRHILL [facility]ALTH SERVICESN [facility] HOSPITALUSETS [facility] [address] [facility] [address] [facility]OS[facility]ITALRHILL [facility] HEALTH SERVICESN [facility]OSPITALUSE [facility] LIPID PANEL, NON FASTING TRIGLYCERID E [MASS/VOLUM E] IN SERUM OR PLASMA 105 mg/dL 0 - 150 12/26 Specimen Type: SERUM No comment entered. Ordering Provider: MANOLO DIAZ Report Released Date/Time: Dec 27, 2023 03:31 PM Reporting Lab: [facility]OSPITALRHILL [facility]ALTH SERVICESN [facility]ITALUSE[address] [address] Performing Lab: [facility]OSPITALRHILL [facility] SERVICESN [facility]ITALUSE[address] [address] [facility]ITALRL WSTRN [place] [facility] LIPID PANEL, NON FASTING CHOLESTEROL IN LDL [MASS/VOLUM E] IN SERUM OR PLASMA BY CALCULATION 86 mg/dL 0 - 129 12/26 Specimen Type: SERUM No comment entered. Ordering Provider: MANOLO DIAZ Report Released Date/Time: Dec 27, 2023 03:31 PM Reporting Lab: [facility] [place] [facility] [address] [facility] [address] Performing Lab: [facility] [place] [facility] [address] [facility] [address] [facility]ITALRL WSTRN [place] [facility] LIPID PANEL, NON FASTING CHOLESTEROL .TOTAL/CHOL ESTEROL IN HDL [MASS RATIO] IN SERUM OR PLASMA 3.3 12/26 Specimen Type: SERUM No comment entered. Ordering Provider: MANOLO DIAZ Report Released Date/Time: Dec 27, 2023 03:31 PM Reporting Lab: [facility] [place] [facility] [address] [facility] [address] Performing Lab: [facility] [place] [facility] [address] [facility] [address] [facility]ITALRL WSTRN [place] [facility] LIPID PANEL, NON FASTING CHOLESTEROL IN HDL [MASS/VOLUM E] IN SERUM OR PLASMA 46 mg/dL 40 - 60 12/26 Specimen Type: SERUM No comment entered. Ordering Provider: MANOLO DIAZ Report Released Date/Time: Dec 27, 2023 03:31 PM Reporting Lab: [facility] [place] [facility] [address] [facility] [address] Performing Lab: [facility] [place] [address] [address] [facility]ITALRL WSTRN [place] [facility] Vital Signs Combined list of inpatient and outpatient Vital Signs from Department of Defense and Veterans Affairs, ranging from 12 months to all on record, depending upon the facility. Vital Sign Value Date Comments Source SYSTOLIC BLOOD PRESSURE 132 01/10/20 24 13:41:12 [place] [facility] [place] [facility] DIASTOLIC BLOOD PRESSURE 78 024 13:41:12 [facility] [...] Disposition Source [facility] [place] [facility] Outpatient Encounter [id number] Diagnos is: ICD-10- CM Z02.89 Encount er for other adminis trative examina tiASHLEY Chávez 03/14 [facility] [place] [facility] [place] 1/ [id number] Diagnos is: ICD-10- CM H40.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 DOMINIC ALBRECHT E 03/25 [facility] FIT SPECTACLES MULTIFOCAL [id number] Diagnos is: ICD-10- CM Z46.0 Encount er for fit/adj st of spectac les and contact lenses DOMINIC ALBRECHT E 03/26 [facility] En[facility] [id number] TAYLOR PORRAS ISTOPHER E 05/13 [facility] En[facility] [id number] 05/14 [facility] En[facility] [id number] 05/15 [facility] En[facility] [id number] 07/01 [facility] En[facility] [id number] Diagnos is: ICD-10- CM Z02.89 Encount er for other adminis trative examina ASHLEY Barnes 07/03 [facility] En[facility] [id number] 07/10 [facility] En[facility] [id number] 10/27 [facility]counter [id number] 11/04 [facility]counter [id number] 11/28 [facility]counter [id number] 12/22 [facility] [id number] 12/25 [facility] OFFICE O/P EST MOD 30 MIN [id number] Diagnos is: ICD-10- CM Z86.018 Persona l history of other benign neoplas GABRIELLA Piper 12/25 [facility] OFFICE O/P EST MOD 30 MIN [id number] Diagnos is: ICD-10- CM I48.91 Unspeci fied atrial fibrill ation Terri DIAZ 12/26 [facility] OFF/OP EST MAY X REQ PHY/QHP [id number] 1. Diagnos is: ICD-10- CM H61.23 Impacte d quincy forrester MELISSA 01/09 [facility] Out[facility]counter [id number] 1.01/09 [facility]counter [id number] 02/19 [facility] Out[facility] Encounter [id number] 03/24 [facility] EXTENDED VISUAL FIELD XM [id number] Diagnos is: ICD-10- CM H40.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 DAYASKI,AN ROXANN E 03/24 [facility] CPTRZD [place] [id number] Diagnos is: ICD-10- CM H40.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 JASONI,AN ROXANN E 03/24 [facility] COMPRE OPH EXAM EST PT 1/ [id number] Diagnos is: ICD-10- CM H04.123 Dry eye syndrom e of bilater al lacrima l glands BORASKAbeba,AN ROXANN E 03/24 [facility] FIT SPECTACLES MULTIFOCAL [id number] Diagnos is: ICD-10- CM Z46.0 Encount er for fit/adj st of spectac les and contact lenses DOMINIC ALBRECHT E 03/25 [facility] Out[facility] Encounter [id number] 04/02 [facility]counter [id number] NIRMAL TOM 06/15 [facility] [facility] Social History Combined list of available smoking, tobacco, and other social history from Department of Defense and Veterans Affairs facilities. Social History Type Response Date Comment Sourc e Tobacco smoking status [facility] VA-TOBACCO FORMER USER 12/27/2023 [facility] [place] [facility] of [facility]/27[facility]2023 [facility] [place] [facility] History of [facility] 05/25/2022 [facility] [place] [facility] History of tobacco [facility] 05/19/2021 [facility] [place] [facility] [place] of tobacco use [place] FOR[place] 03[facility] [place] [facility] History of tobacco use QUIT TOBACCO USE > 7 YEARS AGO 09[facility]17[facility] [place] [facility] Plan of Care List of future care activities from Department of Veterans Affairs facilities. Additional future care activities may be listed in the Assessment and Plan section. Date/Time Care Activity Care Activity Detail Facili ty 12/24/2024 AMBULATORY - MEDICINE [facility]
--- NOTE | 2024-08-26 10:37 | MHC.OFFVIS ---
Vital Signs 08/26/24 10:39 Height 6 ft 3 in Weight 240 lb BMI 30.0 Intake Visit Reasons: Inj- Right knee Euflexxa #3 Intake Note: Evert is a 79 year old male who presents today for his 3rd dose of right knee Euflexxa gel injection. He has states that he has gotten fairly good relief from the 1st 2 injections. He continues with his home exercise program. Allergies No Known Allergies Allergy (Verified 08/26/24 10:40) Medication List - Last Reconciled 08/26/24 by Oniel Javier MD albuterol sulfate 90 mcg/actuation 2 puffs inhalation Q4H PRN 90 days albuterol sulfate 2.5 mg (3 mL) inhalation .q 4h PRN atorvastatin 20 mg PO DAILY 90 days furosemide 20 - 40 mg (1 - 2 x 20 mg) PO DAILY PRN levothyroxine 200 mcg PO DAILY naproxen 500 mg PO Q12H PRN nebulizers nebulizer with tubing NS pregabalin 150 mg PO BID 90 days tiotropium-olodaterol 2.5-2.5 mcg/actuation (Stiolto Respimat) 2 puffs inhalation DAILY PFSH Surgical History Hx of spinal surgery History of ptosis repair Voice impairment History of transurethral resection of prostate Epidermal inclusion cyst History of right knee surgery S/P foot surgery, right Right shoulder injury History of thyroidectomy Neoplasm of right patella Inguinal hernia bilateral, non-recurrent Left hand pain Family History Mother Coronary artery disease Pulmonary embolism Father Cancer of prostate Social History Housing: House Alcohol intake: never Patient Tobacco Use Status: Former Tobacco user Cigarette Packs Per Day: 0.5 Years Smoked: 3 e-Cigarette/Vaping Use: Never Used Second Hand Smoke Exposure: No service: Yes Current occupational status: retired Cognitive needs: No Hearing needs: Yes (bilateral hearing aids) Vision needs: Yes (glasses) Physical Exam Vital Signs: BMI result Body Mass Index 30.0 Extrem Other: Right knee examination shows a minimal effusion, palpable crepitus with range of motion, pain with range of motion, no instability Office Procedures AMB Joint Injection/Aspiration Joint Injection/Aspiration Primary Site: right knee Prep: site was prepped using aseptic technique Injected: 20 mg of (Euflexxa viscosupplementation) and 1% plain lidocaine Procedure: The patient tolerated the procedure well Coding - Large joint Procedure code (CPT) selection complete Results Reviewed Results Reviewed: X-rays of the patient's right knee show joint space narrowing, subchondral sclerosis, acute bony abnormalities Assessment & Plan Assessment & Plan (1) Osteoarthritis of right knee: Code(s): M17.11 - Unilateral primary osteoarthritis, right knee Category: Medical Plan Mr. Clemons presents with right knee pain due to osteoarthritis. The risks and benefits of a 3rd Euflexxa injection were discussed at length with the patient. The patient wishes to proceed. He tolerated the injection well. He will continue with his home exercise program. He will follow up on an as-needed basis should his symptoms not plateau at an unacceptable level over the next few months. Orders: Orders AMB Joint Injection/Aspiration Today M17.11 - Unilateral primary osteoarthritis, right knee Coding Level of Care Code Procedure Only Diagnoses Osteoarthritis of right knee M17.11 CPT Codes Coding - Large joint: 61891 - Large joint ([id number])
--- OUTSIDE RECORDS SUMMARY | 2024-08-26 11:31 | XMS_ITS | Encounter Summary ---
Author Organization [facility] Address [address] [place] [address] Care Team Providers Care Ship Propeller Finisher Name Role Phone Pcp, No Primary Care Provider Unavailabl e Unknown Primary Care Provider [phone] -[phone] Aaliyah Carrillo MD Primary Care Provider [phone] Encounter Details Date Type Department Care Team (Late st Contact Info) Description 12/19/2020 Scanned Document [facility] Heart & Vascular [place] at [address] [phone] Provider, External, [address] [place] [phone] Social History Tobacco Use Types Packs/Day Years [...] on filedocumented in this encounter Care Teams Ship Propeller Finisher Relationship Specialty Start Date End Date Pcp, No PCP - General General Medicine 12/19/20 04/14/23 Unknown Unknow Provider Address PCP - General 04/16/23 06/11/23 Aaliyah Carrillo MD [address] [place] [phone] PCP - General Internal Medicine 06/12/23 Aaliyah Carrillo [address] [place] [address], [place] [address], [place] [address] Primary Care Provider Internal Medicine 04/15/23 Aaliyahdarryl Carrillo [address] [place] [address], [address] [address] Primary Care Provider Internal Medicine 04/15/23 Benji Hardwick [address] [place] [phone] Physician Pulmonary Disease 04/15/23 documented as of this encounter
--- OUTSIDE RECORDS SUMMARY | 2024-08-26 11:31 | XMS_ITS | Clinical Summary ---
Author Organization [employer] Address [address] [facility] [address] [place] [address] Care Team Providers Care C Wpf Developer Name Role Phone Unavailable Primary Care Provider [...] 2023-2 5 season) 2023 Influenza Vaccine (#1) 2024 HIB Vaccines Aged Out No longer [...]
--- OUTSIDE RECORDS SUMMARY | 2024-08-26 11:31 | XMS_ITS | Clinical Summary ---
Author Organization [facility] Address [address] [place], [place] [id number] Care Team Providers Care Circular Distributor Name Role Phone Aaliyah Carrillo MD Primary Care Provider [phone] Allergies No known active allergies Medications Medication [...] 1-dose 75+ series) 2022 Influenza Vaccine (#1) 2024 7, 12/11/2013 Shingrix-Zoster Vaccine Completed 07/18/19, 03/19/2018 Pneumococcal Vaccine Completed 01/11/2021, 02/06/2018, 12/16/2015 Hepatitis B Vaccines Aged Out No long er eligible based on patient's age to complete this topic RSV Ped < 20 months Aged Out No longe r eligible based on patient's age to complete this topic Care Teams Circular Distributor Relationship Specialty Start Date End Date Aaliayh Carrillo MD PCP - General Internal Medicine 08/24/19
== END 2024-08-26 11:18 | disposition home or self-care (01) ==
LOC: HO.HOS 10:33
PROVIDERS: PCP Internal Medicine; Visit Provider Orthopaedic Surgery
DX: M17.11 Unilateral primary osteoarthritis, right knee (principal)
CPT/HCPCS: 20610

== ENCOUNTER → 2024-08-26 10:32 | Outpatient (BNVA) | payer MEDICARE, SELFPAY | PROVIDERS: PCP Internal Medicine; Visit Provider Orthopaedic Surgery | DX: M17.11 Unilateral primary osteoarthritis, right knee (principal) | CPT/HCPCS: 20610; J2003; J7323 ==

== ENCOUNTER 2024-09-08 09:05 | Outpatient (AMB) | payer MEDICARE, SELFPAY ==
--- OUTSIDE RECORDS SUMMARY | 2024-09-08 04:33 | XMS_ITS | Continuity of Care Document ---
Author Name [facility] Organization [facility] Care Team Providers Care Radiology Ct Technologist Name Role Phone [facility] Unavailable Unavailable Problems Combined list of problems from Department of Defense and Veterans Affairs facilities. It does not include entries that were removed or entered in error. Problem Status Onset Date Problem Type Date of Resolution Comments Source AF - Atrial Fibrillation ([facility] [id number]) Active Condition [facility] Benign prostatic hyperplasia Active Condition [facility] COPD - Chronic Obstructive Pulmonary Disease ([facility] [id number]) Active Condition [facility] [place] [...] Encounter for other administrative examinations [facility] Medications Combined list of outpatient medications [...] BREATH RESPIR ATORY (INHAL ATION) ACTIVE 02/20/2025 [id number] DAVID MUSA IG P 2024 1 [facility] ALBUTEROL 90MCG/ACTUA T (CFC-F) INHL,ORAL,8 .5GM DOSE COUNTER INHALE 2 PUFFS BY MOUTH EVERY 4 HOURS NEEDED FOR BRONCHOS PASM RESPIR ATORY (INHAL ATION) DISCONT INUED 12/27/2024 [id number] TERRIE DIAZ 2023 1 [facility] ALBUTEROL INHALER INHL,ORAL INHALE BY MOUTH RESPIR ATORY (INHAL ATION) ACTIVE Sebastian [facility]A [facility] ATORVASTATI N TAB TAKE BY MOUTH ORAL ACTIVE Sebastian MORA 2022 [facility] CARBAMIDE PEROXIDE 6.5%/GLYCER IN SOLN,OTIC INSTILL 5 DROPS INTO EACH EAR ONCE 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 (OTIC) 01/26/2024 [id number] 4 TERRIE DIAZ 2023 15 [facility] CARBOXYMETH YLCELLULOSE NA 0.5% SOLN,OPH INSTILL 1 DROP INTO EACH EYE FOUR TIMES DAILY NEEDED FOR DRY EYE OPHTHA LMIC ACTIVE 03/25/2025 [id number] 5 Chioma ALBRECHT 2024 15 [facility] LEVOTHYROXI NE NA 200MCG TAB (SYNTHROID) TAKE ONE TABLET BY MOUTH EVERY MONTH ORAL ACTIVE TERRIE DIAZ 2018 [facility] LEVOTHYROXI NE NA 200MCG TAB (SYNTHROID) TAKE ONE TABLET BY MOUTH EVERY MORNING 30 MINUTES BEFORE BREAKFAS T ORAL ACTIVE TERRIE DIAZ 2017 [facility] MINERAL OIL,LIGHT/P ETROLATUM (PF) OINT,OPH APPLY THIN RIBBON INTO EACH EYE AT BEDTIME FOR DRY EYE OPHTHA LMIC 03/25/2024 [id number] Chioma ALBRECHT NDREW E 2023 3 [facility] OLODATEROL 2.5MCG/TIOT ROPIUM 2.5MCG/ACTU AT INHL,ORAL,6 0D,4GM INHALE 2 PUFFS (1 DOSE) BY MOUTH ONCE DAILY RESPIR ATORY (INHAL ATION) ACTIVE 03/26/2025 [id number] 5 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,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 3 [facility] OLODATEROL 2.5MCG/TIOT ROPIUM 2.5MCG/ACTU AT INHL,ORAL,6 0D,4GM INHALE 2 PUFFS (1 DOSE) BY MOUTH ONCE DAILY RESPIR ATORY (INHAL ATION) DISCONT INUED 02/21/2025 [id number] 5 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 Comments Source COVID-19 (MODERNA), MRNA, LNP-S, PF, 100 MCG/0.5 ML DOSE 2 2020 207 complet ed MOD; [id number]; 1 [facility] [...] Dec 27, 2023 03:31 PM Reporting Lab[facility] [address] [address] Performing Lab: [facility] [address] [address] [facility] HEMOGLOBI N A1C [...] Reporting Lab: [facility] [address] [address] Performing Lab: [facility] [place] [address] [address] [facility] CBC LEUKOCYTES [#/VOLUME] IN BLOOD BY AUTOMATED COUNT 7.94 10*3/u L 4.50 - 11.00 12/26 Specimen Type: BLOOD No comment entered. Ordering Provider: MANOLO DIAZ Report Released Date/Time: Dec 27, 2023 03:31 PM Reporting Lab: [facility] [facility] [address] [address] Performing Lab: [facility] [place] [facility] [address] [address] [facility] [place] [facility] CBC ERYTHROCYTE S [#/VOLUME] IN BLOOD BY AUTOMATED COUNT 4.90 10*6/u L 4.23 - 5.66 12/26 Specimen Type: BLOOD No comment entered. Ordering Provider: MANOLO DIAZ Report Released Date/Time: Dec 27, 2023 03:31 PM Reporting Lab: [facility] [place] [address] [address] Performing Lab: [facility] [place] [address] [address] [facility] CBC HEMOGLOBIN [MASS/VOLUM E] IN BLOOD 14.7 g/dL 12.8 - 17 12/26 Specimen Type: BLOOD No comment entered. Ordering Provider: MANOLO DIAZ Report Released Date/Time: Dec 27, 2023 03:31 PM Reporting Lab: [facility] [facility] [address] [address] Performing Lab: [facility] [facility] [address] [address] [facility] CBC HEMATOCRIT [VOLUME FRACTION] OF BLOOD BY AUTOMATED COUNT 43.5 39.2 - 50.4 12/26 Specimen Type: BLOOD No comment entered. Ordering Provider: MANOLO DIAZ Report Released Date/Time: Dec 27, 2023 03:31 PM Reporting Lab: [facility] [place] [facility] [address] [address] Performing Lab: [facility] [place] [facility] [address] [address] [facility] [place] [facility] CBC MCV [ENTITIC VOLUME] BY AUTOMATED COUNT 88.8 fL 82 - 99 12/26 Specimen Type: BLOOD No comment entered. Ordering Provider: MANOLO DIAZ Report Released Date/Time: Dec 27, 2023 03:31 PM Reporting Lab: [facility] [place] [facility] [address] [address] Performing Lab: [facility] [place] [facility] [address] [address] [facility] [place] [facility] CBC MCHC [MASS/VOLUM E] BY AUTOMATED COUNT 33.8 g/dL 30.8 - 35.1 12/26 Specimen Type: BLOOD No comment entered. Ordering Provider: MANOLO DIAZ Report Released Date/Time: Dec 27, 2023 03:31 PM Reporting Lab: [facility] [place] [facility] [address] [address] Performing Lab: [facility] [place] [facility] [address] [address] [facility] [place] [facility] CBC PLATELETS [#/VOLUME] IN BLOOD BY AUTOMATED COUNT 263 10*3/u L 140 - 360 12/26 Specimen Type: BLOOD No comment entered. Ordering Provider: MANOLO DIAZ Report Released Date/Time: Dec 27, 2023 03:31 PM Reporting Lab: [facility] [facility] [address] [address] Performing Lab: [facility] [facility] [address] [address] [facility] CBC ERYTHROCYTE DISTRIBUTIO N WIDTH [RATIO] BY AUTOMATED COUNT 13.2 12.0 - 16.0 12/26 Specimen Type: BLOOD No comment entered. Ordering Provider: MANOLO DIAZ Report Released Date/Time: Dec 27, 2023 03:31 PM Reporting Lab: [facility] [facility] [address] [address] Performing Lab: [facility] [facility] [address] [address] [facility] CBC MCH [ENTITIC MASS] BY AUTOMATED COUNT 30.0 pg 26.2 - 32.6 12/26 Specimen Type: BLOOD No comment entered. Ordering Provider: MANOLO DIAZ Report Released Date/Time: Dec 27, 2023 03:31 PM Reporting Lab: [facility] [address] [address] Performing Lab: [facility] [address] [address] [facility] [place] [facility] BASIC METABOLIC PANEL (non-fast ing) UREA NITROGEN [MASS/VOLUM E] IN SERUM OR PLASMA 17 mg/dL 7 - 25 12/26 Specimen Type: SERUM No comment entered. Ordering Provider: MANOLO DIAZ Report Released Date/Time: Dec 27, 2023 03:31 PM Reporting Lab: [facility] [facility] [address] [address] Performing Lab: [facility] [place] [address] [address] [facility] BASIC METABOLIC PANEL (non-fast ing) GLUCOSE [MASS/VOLUM E] IN SERUM OR PLASMA 89 mg/dL 65 - 100 12/26 Specimen Type: SERUM No comment entered. Ordering Provider: MANOLO DIAZ Report Released Date/Time: Dec 27, 2023 03:31 PM Reporting Lab: [facility]N [facility]ITAL[facility] [address] [address] Performing Lab: [facility]OS[facility]ITALRUNIVERSITY [facility]OM[facility] HOSPITALN [address] [address] [facility]OS[facility]ITALRL [facility]ITALN [facility]OSPITALUSE [facility] BASIC METABOLIC PANEL (non-fast ing) SODIUM [MOLES/VOLU ME] IN SERUM OR PLASMA 140 mmol/L 135 - 145 12/26 Specimen Type: SERUM No comment entered. Ordering Provider: MANOLO DIAZ Report Released Date/Time: Dec 27, 2023 03:31 PM Reporting Lab: [facility] HOSPITALRJACK HUGHST[facility]OR[facility] HOSPITALTRN [address] [address] Performing Lab: [facility]OSPITALRUNIVERS[facility] AND WOMEN'S HOSPITALN [facility]ITALUSE[address] [address] [facility]OSPITALRL [facility]OSPITALN [facility]OSPITALUSE [facility] BASIC METABOLIC PANEL (non-fast ing) POTASSIUM [MOLES/VOLU ME] IN SERUM OR PLASMA 4.0 mmol/L 3.5 - 5.0 12/26 Specimen Type: SERUM No comment entered. Ordering Provider: MANOLO DIAZ Report Released Date/Time: Dec 27, 2023 03:31 PM Reporting Lab: [facility] HOSPITALRUNIVERSITY [facility] WOMEN[facility]S HOSPITALN [facility]PITALUSE[address] [address] Performing Lab: [facility]OS[facility]ITALRL TRN [facility]OSPITALUSETS [address] [address] [facility]ITALRUNIV[facility] WOM[facility] HOSPITALN [facility]OSPITALUSE [facility] BASIC METABOLIC PANEL (non-fast ing) CHLORIDE [MOLES/VOLU ME] IN SERUM OR PLASMA 107 mmol/L 100 - 110 12/26 Specimen Type: SERUM No comment entered. Ordering Provider: MANOLO DIAZ Report Released Date/Time: Dec 27, 2023 03:31 PM Reporting Lab: [facility] HOSPITALRJACK HUGHSTON MEMORIAL HOSPITALTRN [facility]ITALUSE[address] [address] Performing Lab: [facility] HOSPITALRJACK [facility] [address] [facility] BASIC METABOLIC PANEL (non-fast ing) CARBON DIOXIDE, TOTAL [MOLES/VOLU ME] IN SERUM OR PLASMA 23 meq/L 20 - 30 12/26 Specimen Type: SERUM No comment entered. Ordering Provider: MANOLO DIAZ Report Released Date/Time: Dec 27, 2023 03:31 PM Reporting Lab: [address] [address] Performing Lab: [address] [address] [facility] BASIC METABOLIC PANEL (non-fast ing) CREATININE [MASS/VOLUM E] IN SERUM OR PLASMA 0.96 mg/dL 0.50 - 1.40 12/26 Specimen Type: SERUM No comment entered. Ordering Provider: MANOLO DIAZ Report Released Date/Time: Dec 27, 2023 03:31 PM Reporting Lab: [address] [address] Performing Lab: [address] [address] [facility] BASIC METABOLIC PANEL (non-fast ing) GLOMERULAR FILTRATION RATE/1.73 SQ M.PREDICTED [VOLUME RATE/AREA] IN SERUM, PLASMA OR BLOOD BY CREATININE- BASED FORMULA (CKD-EPI 2020) 81 mL/min 60 12/26 Specimen Type: SERUM No comment entered. Ordering Provider: MANOLO DIAZ Report Released Date/Time: Dec 27, 2023 03:31 PM Reporting Lab: [address] [address] Performing Lab: [address] [address] [facility] LIVER FUNCTION PROTEIN [MASS/VOLUM E] IN SERUM OR PLASMA 6.4 g/dL 6.0 - 8.3 12/26 Specimen Type: SERUM No comment entered. Ordering Provider: MANOLO DIAZ Report Released Date/Time: Dec 27, 2023 03:31 PM Reporting Lab: [facility] [facility] [address] [address] Performing Lab: [facility] [address] [address] [facility] LIVER FUNCTION ALBUMIN [MASS/VOLUM E] IN SERUM OR PLASMA 3.8 g/dL 3.5 - 5.0 12/26 Specimen Type: SERUM No comment entered. Ordering Provider: MANOLO DIAZ Report Released Date/Time: Dec 27, 2023 03:31 PM Reporting Lab: [facility] [place] [facility] [address] [address] Performing Lab: [facility] [place] [facility] [address] [address] [facility] [place] [facility] LIVER FUNCTION ALKALINE PHOSPHATASE [ENZYMATIC ACTIVITY/VO LUME] IN SERUM OR PLASMA 56 U/L 40 - 150 12/26 Specimen Type: SERUM No comment entered. Ordering Provider: MANOLO DIAZ Report Released Date/Time: Dec 27, 2023 03:31 PM Reporting Lab: [facility] [place] [facility] [address] [address] Performing Lab: [facility] [place] [facility] [address] [address] [facility] LIVER FUNCTION ASPARTATE AMINOTRANSF ERASE [ENZYMATIC ACTIVITY/VO LUME] IN SERUM OR PLASMA 18 U/L 5 - 34 12/26 Specimen Type: SERUM No comment entered. Ordering Provider: MANOLO DIAZ Report Released Date/Time: Dec 27, 2023 03:31 PM Reporting Lab: [facility] [place] [facility] [address] [address] Performing Lab: [facility] [place] [facility] [address] [address] [facility] LIVER FUNCTION ALANINE AMINOTRANSF ERASE [ENZYMATIC ACTIVITY/VO LUME] IN SERUM OR PLASMA 15 U/L 12/26 Specimen Type: SERUM No comment entered. Ordering Provider: MANOLO DIAZ Report Released Date/Time: Dec 27, 2023 03:31 PM Reporting Lab: [facility] [place] [facility] [address] [address] Performing Lab: [facility]ITALUSETS [facility] [address] [address] [facility] HOSPITALRL WSTRN [facility]USE [facility] LIVER FUNCTION BILIRUBIN.T OTAL [MASS/VOLUM E] IN SERUM OR PLASMA 0.6 mg/dL 0.2 - 1.2 12/26 Specimen Type: SERUM No comment entered. Ordering Provider: MANOLO DIAZ Report Released Date/Time: Dec 27, 2023 03:31 PM Reporting Lab: [facility] HOSPITALRL TRN [facility]ITALUSE[address] [address] Performing Lab: [facility]ITALUSE[address] [address] [facility]OS[facility]ITALRL W[facility]N [facility] HOSPITALUSE [facility] LIPID PANEL, NON FASTING CHOLESTEROL [MASS/VOLUM E] IN SERUM OR PLASMA 153 mg/dL 12/26 Specimen Type: SERUM No comment entered. Ordering Provider: MANOLO DIAZ Report Released Date/Time: Dec 27, 2023 03:31 PM Reporting Lab: [facility]OS[facility]ITALRL W[facility]N [address] [address] Performing Lab: [facility] [place] [address] [address] [facility]OS[facility]ITALRL WSTRN [facility] [facility] LIPID PANEL, NON FASTING TRIGLYCERID E [MASS/VOLUM E] IN SERUM OR PLASMA 105 mg/dL 0 - 150 12/26 Specimen Type: SERUM No comment entered. Ordering Provider: MANOLO DIAZ Report Released Date/Time: Dec 27, 2023 03:31 PM Reporting Lab: [facility]OS[facility]ITALRL WSTRN [facility]ITALUSE[address] [address] Performing Lab: [facility] [address] [address] [facility]ITALRL [facility] [place] [facility] LIPID PANEL, NON FASTING CHOLESTEROL IN LDL [MASS/VOLUM E] IN SERUM OR PLASMA BY CALCULATION 86 mg/dL 0 - 129 12/26 Specimen Type: SERUM No comment entered. Ordering Provider: MANOLO DIAZ Report Released Date/Time: Dec 27, 2023 03:31 PM Reporting Lab: [facility] [place] [facility] [address] [address] Performing Lab: [facility] [place] [facility] [address] [address] [facility]ITALRL [facility]N [place] [facility] LIPID PANEL, NON FASTING CHOLESTEROL .TOTAL/CHOL ESTEROL IN HDL [MASS RATIO] IN SERUM OR PLASMA 3.3 12/26 Specimen Type: SERUM No comment entered. Ordering Provider: MANOLO DIAZ Report Released Date/Time: Dec 27, 2023 03:31 PM Reporting Lab: [facility] [place] [facility] [address] [address] Performing Lab: [facility] [place] [facility] [address] [address] [facility]ITALRL [facility] [place] [facility] LIPID PANEL, NON FASTING CHOLESTEROL IN HDL [MASS/VOLUM E] IN SERUM OR PLASMA 46 mg/dL 40 - 60 12/26 Specimen Type: SERUM No comment entered. Ordering Provider: MANOLO DAIZ Report Released Date/Time: Dec 27, 2023 03:31 PM Reporting Lab: [facility] [place] [facility] [address] [address] Performing Lab: [facility] [place] [address] [address] [facility]ITALRL [facility] [place] [facility] Vital Signs Combined list of inpatient and outpatient Vital Signs from Department of Defense and Veterans Affairs, ranging from 12 months to all on record, depending upon the facility. Vital Sign Value Date Comments Source SYSTOLIC BLOOD PRESSURE 132 01/10/20 24 13:41:12 [facility] [place] [facility] DIASTOLIC BLOOD PRESSURE 78 024 13:41:12 [facility] [...] Disposition Source [facility] [place] [facility] Outpatient Encounter [id number] Diagnos is: ICD-10- CM Z02.89 Encount er for other adminis trative examina tiASHLEY Chávez 03/14 [facility] [place] [facility] [place] 1/ [id number]. [id number] Diagnos is: ICD-10- CM H40.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 DOMINIC ALBRECHT E 03/25 [facility] FIT SPECTACLES MULTIFOCAL [id number] Diagnos is: ICD-10- CM Z46.0 Encount er for fit/adj st of spectac les and contact lenses DOMINIC ALBRECHT E 03/26 [facility] En[facility] [id number] TAYLOR PORRAS ISTOPHER E 05/13 [facility] En[facility] [id number] 05/14 [facility] En[facility] [id number] 05/15 [facility] En[facility] [id number] 07/01 [facility] Encounter [id number] Diagnos is: ICD-10- CM Z02.89 Encount er for other adminis trative examina ASHLEY Barnes 07/03 [facility] En[facility] [id number] 07/10 [facility] En[facility] [id number] 10/27 [facility] En[facility] [id number] 11/04 [facility] En[facility] [id number] 11/28 [facility] En[facility] [id number] 12/22 [facility] En[facility] [id number] 12/25 [facility] OFFICE O/P EST MOD 30 MIN [id number] Diagnos is: ICD-10- CM Z86.018 Persona l history of other benign neoplas GABRIELLA Piper 12/25 [facility] OFFICE O/P EST MOD 30 MIN [id number] Diagnos is: ICD-10- CM I48.91 Unspeci fied atrial fibrill ation Terri DIAZ 12/26 [facility] OFF/OP EST MAY X REQ PHY/QHP [id number] 1. Diagnos is: ICD-10- CM H61.23 Impacte d quincy forrester MELISSA 01/09 [facility] Outpatient Encounter [id number] 1.01/09 [facility] Out[facility]counter [id number] 02/19 [facility] Out[facility] Encounter [id number] 03/24 [facility] EXTENDED VISUAL FIELD XM 50854-7.63 [id number] Diagnos is: ICD-10- CM H40.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 DAYASKI,AN ROXANN E 03/24 [facility] CPTRZD [place] [address]-2.63 [id number] Diagnos is: ICD-10- CM H40.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 JASONI,AN ROXANN E 03/24 [facility] COMPRE OPH EXAM EST PT 1/ 13451-6.63 [id number] Diagnos is: ICD-10- CM H04.123 Dry eye syndrom e of bilater al lacrima l glands BORASKAbeba,AN ROXANN E 03/24 [facility] FIT SPECTACLES MULTIFOCAL [id number] [id number] Diagnos is: ICD-10- CM Z46.0 Encount er for fit/adj st of spectac les and contact lenses DOMINIC ALBRECHT E 03/25 [facility] Out[facility] Encounter [id number] 04/02 [facility] Outpatient Encounter [id number] NIRMAL TOM 06/15 [facility] Social History Combined list of available smoking, tobacco, and other social history from Department of Defense and Veterans Affairs facilities. Social History Type Response Date Comment Sourc e Tobacco smoking status [facility] VA-TOBACCO FORMER USER 12/27/2023 [facility] of [facility]/27[facility]2023 [facility] [place] [facility] History of tobacco use [place]-TO[place]ACCO NEVER USED 05/25/2022 [facility] [place] [facility] History of tobacco use [place]-TOBACCO FORMER USER 03/24/2020 [facility] History [facility] tobacco use QUIT TOBACCO USE > 7 YEARS AGO 09/17[facility] Plan of Care List of future care activities from Department of Veterans Affairs facilities. Additional future care activities may be listed in the Assessment and Plan section. Date/Time Care Activity Care Activity Detail Facili ty 12/24/2024 AMBULATORY - MEDICINE AMBULATORY - [facility]
--- NOTE | 2024-09-08 09:08 | MHC.OFFVIS ---
Vital Signs 09/08/24 09:09 Height 6 ft 3 in Weight 233 lb BMI 29.1 BP 136/86 Blood Pressure Location Rt brachial Position Sitting Pulse 68 Pulse Source Pulse Oximeter Pulse Oximetry (%) 97 Oxygen Delivery Method Room Air Intake Visit Reasons: mod barium swallow Intake Note: Est Pt for mgmt of dysphagia + pharyngitis. CC; Pt denies any changes or concerns since last visit. Pt was seen in ED for non GI related reasons in June 2024. Review BA FL results. 2Nd Pressman Required: No Allergies No Known Allergies Allergy (Verified 09/08/24 09:08) HPI HPI mod barium swallow: Details: LAST VISIT: Dysphagia GERD (gastroesophageal reflux disease) Plan Will send patient for modified barium swallow and upper endoscopy. Patient might need dilation. Patient also reports acid reflux will treat him with pantoprazole for now. Acid reflux could be worsening his symptoms of dysphagia. Follow-up in 6 weeks to re-evaluate. In the meantime scheduled endoscopy and MBS. Patient was encouraged to eat small bites and drink fluids. Patient was encouraged to clear throat and cough after swallowing to making sure that he does not choke. Patient is agreeable to current plan of care and verbalizes understanding of instructions. He was given the opportunity to ask questions and all questions answered. ? Thank you for allowing me to participate in his care Orders FL Modified Barium Swallow Today R13.10 New pantoprazole take one tablet half an hour before breakfast 40 mg PO DAILY 30 tabs 3RF K21.9 TODAY'S VISIT Patient is here today for follow-up after his modified barium swallow. Trace laryngeal penetration with thin liquids otherwise was normal. Patient reports occasional trouble swallowing that happens every couple of weeks or so. Patient denies any choking episodes. He was supposed to follow-up with speech therapy, never called back to set up appointment. Patient reports that he does not feel like this would be beneficial to him. Patient is not taking pantoprazole. He reports that he does not have acid reflux. Very rarely depending on what he eats. Patient denies dyspepsia or odynophagia. Reports to be feeling well otherwise. Moves his bowels daily. Denies melena, hematochezia, unintentional weight loss or ribbon like stools. [facility] Surgical History Hx of spinal surgery History of ptosis repair Voice impairment History of transurethral resection of prostate Epidermal inclusion cyst History of right knee surgery S/P foot surgery, right Right shoulder injury History of thyroidectomy Neoplasm of right patella Inguinal hernia bilateral, non-recurrent Left hand pain Family History Mother Coronary artery disease Pulmonary embolism Father Cancer of prostate Social History Housing: House Alcohol intake: never Patient Tobacco Use Status: Former Tobacco user Cigarette Packs Per Day: 0.5 Years Smoked: 3 e-Cigarette/Vaping Use: Never Used Second Hand Smoke Exposure: No service: Yes Current occupational status: retired Cognitive needs: No Hearing needs: Yes (bilateral hearing aids) Vision needs: Yes (glasses) Review of Systems Const Denies weight gain and Denies weight loss ENT Reports no additional complaints, Reports dysphagia (Occasional) and Denies odynophagia Card Reports no additional complaints Resp Reports no additional complaints GI Denies abdominal pain, Denies belching, Denies melena, Denies bloating, Denies change in bowel habits, Reports dysphagia (Occasional), Denies excessive flatus, Denies dyspepsia, Denies heartburn, Denies diarrhea, Denies loose stools, Denies nausea, Denies odynophagia and Denies vomiting Reports no additional complaints Musc Reports no additional complaints Neuro Reports no additional complaints Psych Reports no additional complaints Endo Reports no additional complaints Physical Exam Vital Signs: Last Vital Signs Pulse 68 09/08/24 09:09 BP 136/86 09/08/24 09:09 Pulse Ox 97 09/08/24 09:09 Oxygen Delivery Method Room Air 09/08/24 09:09 BMI result Body Mass Index 29.1 Const Other: Ambulating with a cane General: healthy appearing and no acute distress Nutritional Appearance: well nourished Orientation/consciousness: patient oriented x3 Resp Effort & Inspection: normal respiratory effort, able to speak in complete sentences, no tracheal deviation and symmetric chest movement Auscultation: clear to auscultation bilaterally Cardio Rate: regular rate GI Inspection: Yes normal to inspection and No distended Palpation (GI): Soft to palpation, not firm, nontender and No hepatosplenomegaly present Auscultation: normal bowel sounds General: Yes no CVA tenderness Back/Spine/Pelvis Back: no CVA tenderness Skin General skin exam: elasticity normal, turgor normal and dry skin Neuro General: patient oriented x3 Psych Appearance: grossly normal Mental Status: mental status grossly normal Results Reviewed Results Reviewed: MODIFIED BARIUM SWALLOW 07/17/2024 MPRESSION: Trace laryngeal penetration with thin barium but otherwise unremarkable modified barium swallow. SPEECH THERAPY NOTES ASSESSMENT: Clinician Assessment: This exam was performed by the radiologist and the speech pathologist. Patient was standing for oblique view. He was able to feed himself without any difficulty and trialed thin (via individual cup sips), puree, and regular solid textures. There was escape of contrast to the floor of mouth, but no spillage posteriorly prior to the pharyngeal swallow. Mastication was mildly slowed, notable for piece meal deglutition pattern. Patient swallowed up to 3 times to clear contrast from the oral cavity with liquids and purees. Posterior lingual motion was delayed, but with brisk movement. Trace residue coated the tongue and cleared on subsequent swallows. Pharyngeal swallow trigger initiated as the bolus head reached the valleculae. There was trace contrast escaping between the soft palate and pharyngeal wall. Partial laryngeal elevation with partial epiglottic inversion and incomplete laryngeal vestibular closure. Trace penetration seen above the vocal folds on trials of thin liquid, with no subsequent aspiration. No evidence of aspiration or penetration with purees and regular solid. There was trace residue on the tongue base, on the posterior pharyngeal wall, and in the valleculae, which cleared with subsequent swallows. The following compensatory strategies have not been used until today's study, but when employed, improved swallowing function: Additional Swallow(s) per Bolus eliminated Penetration, Oral Residue, Pharyngeal Residue Liquid Intake Recommendation: Thin Liquid Intake Strategies: Small Sips, No Straws Dietary Recommendations: Regular Medication Administration: Whole with Liquid Please contact the pharmacy regarding appropriate crushable or liquid drug formulations that are available whenever modified delivery is recommended. Compensatory Strategies Recommended: Sitting Upright (90 deg), Double Swallow, No Straw, Small Bites and Sips, Rate of Ingestion Change Recommended Treatments: Compens. Strategy Educat. Recommendation for Speech Therapy: Outpatient Speech TherapyText Comment: Intake Recommendations: Route: PO Diet Grade: Regular Liquid Consistencies: Thin Post-Study Functional Oral Intake Scale (FOIS): 7- Total oral intake with no restrictions Mild oropharyngeal dysphagia. Trace penetration above the vocal folds with thin liquid. No evidence of aspiration during this exam. Good oral and pharyngeal clearance. Suggested Referrals: The patient might benefit from a referral to: Gastroenterology Indication for Referral: Patient reports occasional acid reflux Otolaryngology Indication for Referral: Weak voice, patient reports vocal fold(s) paralysis PAEDIATRIC THORACIC PHYSICIAN specializing in voice disorders Indication for Referral: Instrumental voice evaluation (e.g. videostroboscopy) with voice treatment if indicated Therapy Recommendations: Recommend 1-2 follow up visits with a speech pathologist to review MBSS findings and recommended feeding strategies. While no aspiration was evident during this exam in a controlled environment, there was trace penetration noted above the vocal folds, patient is at risk for aspiration given his history of vocal fold paralysis, which could impact airway protection. Recommend resume regular texture diet and thin liquids with aspiration precautions: take small sips, one sip at a time, avoid ?chugging? liquids, avoid the use of straws, take small bites of food, chew food well, clear oral cavity before taking more bites, dry swallow between bites as needed for clearance. PAEDIATRIC THORACIC PHYSICIAN discussed recommendation for patient to have instrumental voice evaluation (e.g. videostroboscopy) with voice treatment if indicated. Patient expressed he has been content with the way his voice sounds, as it has been this way for a long time, and does not think he is interested in seeing a voice therapist at this time. The following compensatory strategies and/or therapeutic exercises will be part of the upcoming therapy/management plan: Additional Swallow(s) per Bolus [facility] Goals: ? The patient and/or family will participate in further education for swallowing goals. Short Term Goals: ? Guidelines - The patient will comply with/recall the following guidelines/strategies 100% of the time with no cuing: Bolus Volume Change, Rate of Ingestion Change, Additional Swallow(s) per Bolus, No Straws. ? Education - The patient will verbalize/demonstrate understanding of the results of this evaluation, the above recommendations, and the swallowing guidelines. Frequency/Duration: 1-2 f/u Date Range for Service Requested: Timeline to reassess: PRN Assessment & Plan Assessment & Plan (1) Dysphagia: Code(s): R13.10 - Dysphagia, unspecified Category: Medical Qualifiers: Dysphagia type: unspecified Qualified Code(s): R13.10 - Dysphagia, unspecified Plan Patient does not want to take pantoprazole or any other PPI as he does not have reflux. Occasional dysphagia happens only once in awhile. Patient was instructed to hold his neck when he swallowing and making sure that he chews very well. Will send him for upper GI series with barium swallow to re-evaluate for reflux versus narrowing, Schatzki ring. Did explain to patient that if reflux is found he will need to go on PPI. Patient will follow-up in the office in 4 months, sooner on as needed basis. He is agreeable to this plan and verbalizes understanding of instructions. He was given the opportunity to ask questions and all questions answered. Thank you for allowing me to participate in his care Orders: Orders FL upper GI w Ba Swallow Today K21.9 - Gastro-esophageal reflux disease without esophagitis Coding Level of Care Code Est Pt Level 3 (28952) Diagnoses Dysphagia, unspecified type R13.10 Dysphagia type: unspecified Time Spent (min) 30 Comment 20 minutes spent with patient and additional 10 minutes spent reviewing his records
[2024-09-08 09:09] VITALS: BP 136/86; PULSE 68; O2SAT 97; BMI 29.1
--- OUTSIDE RECORDS SUMMARY | 2024-09-08 09:35 | XMS_ITS | Clinical Summary ---
Author Organization [facility] Address [address] [place], [place] [id number] Care Team Providers Care Aircraft Rigging And Controls Mechanic Name Role Phone Aaliyah Carrillo MD Primary Care Provider [phone] Allergies No known active allergies Medications Medication [...] age to complete this topic Care Teams Aircraft Rigging And Controls Mechanic Relationship Specialty Start Date End Date Aaliyah Carrillo MD PCP - General Internal Medicine 08/24/19
--- OUTSIDE RECORDS SUMMARY | 2024-09-08 09:35 | XMS_ITS | Clinical Summary ---
Author Organization [employer] Address [address] [facility] [address] [place] [address] Care Team Providers Care Education Instructor Name Role Phone Unavailable Primary Care Provider [...]
--- OUTSIDE RECORDS SUMMARY | 2024-09-08 09:35 | XMS_ITS | Encounter Summary ---
Author Organization [facility] Address [address] [place] [address] [place] [phone] Phone Care Team Providers Care Quill Buncher And Sorter Name Role Phone Aaliyah Carrillo MD Primary Care Provider [phone] Sudhakar Curtis MD Unavailable [phone] Aaliyah Carrillo MD Primary Care Provider [phone] Encounter Details Date Type Department Care Team (Late st Contact Info) Description 06/05/2021 Procedure Pass [facility] Endoscopy Admitting Dept Virtual Department [address] [place] [address] Social History Tobacco Use Types Packs/Day Years Used Date Smoking Tobacco: Former Smokeless Tobacco: Never Comments:Quit over 50 years ago Alcohol Use Standard Drinks/Week Comments Not Currently 0 (1 standard drink = 0.6 oz pur e alcohol) Sex and Gender Information Value Date Recorded Sex Assigned at Not on file Legal Sex Male 10:06 PM EDT Gender Identity Not on file Sexual Orientation Not on file documented as of this encounter Plan of Treatment Upcoming Encounters Date Type Department Care Team (Late st Contact Info) Description 02/20/2024 Procedure [facility] [address] [place] [address] 02/10/2025 9:00 AM EST Office Visit [facility] [address] [place] [phone] Tanisha Rajan MD [address] [address] 02/25/2025 2:00 PM EST Appointment [facility] Radiology [address] [place] [address] Benji Hardwick MD [address] [place] [phone] [email or web address] 02/25/2025 2:30 PM EST Appointment [facility] Pulmonary Function Lab [address] [place] [address] Benji Hardwick MD [address] [place] [phone] [email or web address] 02/25/2025 3:40 PM EST Office Visit [facility] [address] [place] [address] Benji Hardwick MD [address] [place] [phone] [email or web address] documented as of this encounter Visit Diagnoses Not on filedocumented in this encounter Additional Health Concerns Assessment Noted Time PHQ-2 Depression Total Score: 0 01/12/20 21 10:23 AM EST documented as of this encounter Care Teams Quill Buncher And Sorter Relationship Specialty Start Date End Date Aaliyah Carrillo MD PCP - General Internal Medicine 01/01/18 07/10/23 Aaliyah Carrillo MD PCP - General Internal Medicine 11/14/23 Sudhakar Curtis MD [address] [place] [address] [email or web address] Surgery 12/21/22 documented as of this encounter Additional Source Comments The information contained in this document represents components of the legal health record. It is not the complete legal health record.[facility]
--- OUTSIDE RECORDS SUMMARY | 2024-09-08 09:35 | XMS_ITS | Encounter Summary ---
Author Organization [facility] Address [address] [place] [address] Care Team Providers Care Infusion Pharmacist Name Role Phone Pcp, No Primary Care Provider Unavailabl e Unknown Primary Care Provider [phone] Aaliyah Carrillo MD Primary Care Provider [phone] Encounter Details Date Type Department Care Team (Late st Contact Info) Description 12/19/2020 Scanned Document [facility] V[facility] [place] at [address] [phone] Provider, External, [address] [place] [phone] Social History Tobacco Use Types Packs/Day Years [...] on filedocumented in this encounter Care Teams Infusion Pharmacist Relationship Specialty Start Date End Date Pcp, No PCP - General General Medicine 12/19/20 04/14/23 Unknown Unknow Provider Address PCP - General 04/16/23 06/11/23 Aaliyah Carrillo MD [address] [place] [phone] PCP - General Internal Medicine 06/12/23 Aaliyah Carrillo [address] [place] [address], [place] [id number], [place] [address] Primary Care Provider Internal Medicine 04/15/23 Aaliyahdarryl Carrillo [address] [place] [address], [address] [address] Primary Care Provider Internal Medicine 04/15/23 Benji Hardwick [address] [place] [id number] Physician Pulmonary Disease 04/15/23 documented as of this encounter
== END 2024-09-08 09:41 | disposition home or self-care (01) ==
LOC: HO.HGI 09:05
PROVIDERS: PCP Internal Medicine; Visit Provider Nurse Practitioner Family
DX: R13.10 Dysphagia, unspecified (principal)
CPT/HCPCS: 99213

== ENCOUNTER → 2024-09-08 09:05 | Outpatient (BNVA) | payer MEDICARE, SELFPAY | PROVIDERS: PCP Internal Medicine; Visit Provider Nurse Practitioner Family | DX: R13.10 Dysphagia, unspecified (principal) | CPT/HCPCS: 99212 ==

== ENCOUNTER 2024-09-16 11:04 | Outpatient (REF) | payer MEDICARE, SELFPAY ==
--- NOTE | ~2024-09-16 | XR_ITS ---
EXAMINATION: XR CHEST CLINICAL INFORMATION: R05.9 - Cough, unspecified COMPARISON: None available. TECHNIQUE: 2 views of the chest were obtained. FINDINGS: The cardiac, hilar, and mediastinal contours are normal. The lungs are clear bilaterally. There is no pneumothorax or pleural effusion. There is no focal osseous or soft tissue abnormality. XR/XR chest 2V IMPRESSION: No active pulmonary disease. Electronically signed by: Dennis Martins MD 09/16/2024 01:19 PM EDT
--- OUTSIDE RECORDS SUMMARY | 2024-09-16 13:33 | XMS_ITS | Encounter Summary ---
Author Organization [facility] Address [address] [facility] [address] [place] [address] Phone Care Team Providers Care Talent Development Analyst Name Role Phone Aaliyah Smith MD Primary Care Provider [phone] Sudhakar Curtis MD Unavailable [phone] Aaliyah Smith MD Primary Care Provider [phone] Encounter Details Date Type Department Care Team (Late st Contact Info) Description 06/05/2021 Procedure Pass [facility] Endoscopy Admitting Dept Virtual Department [address] [place] [address] Social History Tobacco Use Types Packs/Day Years [...] Procedure Pass [facility] [address] [place] [address] 02/10/2025 9:00 AM EST Office Visit [facility] [address] [place] [address] Tanisha Rajan MD [address] [address] 02/25/2025 2:00 PM EST Appointment [facility]iology [address] [place] [address] Benji Hardwick MD [address] [place] [id number] [email or web address] 02/25/2025 2:30 PM EST Appointment [facility] Pulmonary Function Lab [address] [place] [address] Benji Hardwick MD [address] [place] [phone] [email or web address] 02/25/2025 3:40 PM EST Office Visit [facility] [address] [place] [address] Benji Hardwick MD [address] [place] [phone] [email or web address] documented as of this encounter Visit Diagnoses Not on filedocumented in this encounter Additional Health Concerns Assessment Noted Time PHQ-2 Depression Total Score: 0 01/12/20 21 10:23 AM EST documented as of this encounter Care Teams Talent Development Analyst Relationship Specialty Start Date End Date Aaliyah [place] MD PCP - General Internal Medicine 01/01/18 07/10/23 Aaliyah [place] MD PCP - General Internal Medicine 11/14/23 Sudhakar Curtis MD [address] [place] [phone] [email or web address] Surgery 12/21/22 documented as of this encounter Additional Source Comments The information contained in this document represents components of the legal health record. It is not the complete legal health record.[facility]
[2024-09-16 16:51] LABS: Resp Syncy Virus RNA Qual PCR NEGATIVE (Negative); SARS COV2 PCR INHOUSE NEGATIVE (Negative)
== END 2024-09-16 11:05 | disposition home or self-care (01) ==
LOC: HO.HMGCX 11:04
PROVIDERS: PCP Internal Medicine; Visit Provider Physician Assistant Medical
DX: R05.1 Acute cough (principal); R09.89 Other specified symptoms and signs involving the circulatory and respiratory systems; Z20.822 Contact with and (suspected) exposure to COVID-19; Z87.891 Personal history of nicotine dependence
CPT/HCPCS: 71046; 87637; 87880; 99212

== ENCOUNTER 2024-09-16 11:04 | Outpatient (AMB) | payer MEDICARE, SELFPAY ==
--- OUTSIDE RECORDS SUMMARY | 2024-09-16 07:08 | XMS_ITS | Continuity of Care Document ---
Author Name [facility] Organization [facility] Care Team Providers Care [employer] Contractor Name Role Phone DOD-ME Unavailable Unavailable Problems Combined list of problems from Department of Defense and Veterans Affairs facilities. It does not include entries that were removed or entered in error. Problem Status Onset Date Problem Type Date of Resolution Comments Source AF - Atrial Fibrillation ([facility] [id number]) Active Condition [facility] Benign prostatic hyperplasia Active Condition [facility] COPD - Chronic Obstructive Pulmonary Disease ([facility] [id number]) Active Condition [facility] [place] [...] Encounter for other administrative examinations [facility] Medications Combined list of outpatient medications from [...] BREATH RESPIR ATORY (INHAL ATION) ACTIVE 02/20/2025 [id number] DAVID MUSA IG P 2024 1 [facility] ALBUTEROL 90MCG/ACTUA T (CFC-F) INHL,ORAL,8 .5GM DOSE COUNTER INHALE 2 PUFFS BY MOUTH EVERY 4 HOURS NEEDED FOR BRONCHOS PASM RESPIR ATORY (INHAL ATION) DISCONT INUED 12/27/2024 [id number] 4 TERRIE DIAZ 2023 1 [facility] [place] [facility] ALBUTEROL INHALER INHL,ORAL INHALE BY MOUTH RESPIR ATORY (INHAL ATION) ACTIVE Sebastian [facility]A 20[facility] ATORVASTATI N TAB TAKE BY MOUTH ORAL ACTIVE Sebastian MORA 2022 [facility] CARBAMIDE PEROXIDE 6.5%/GLYCER IN SOLN,OTIC INSTILL 5 DROPS INTO EACH EAR ONCE 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 (OTIC) 01/26/2024 [id number] 4 TERRIE DIAZ 2023 15 [facility] [place] CARBOXYMETH YLCELLULOSE NA 0.5% SOLN,OPH INSTILL 1 DROP INTO EACH EYE FOUR TIMES DAILY NEEDED FOR DRY EYE OPHTHA LMIC ACTIVE 03/25/2025 [id number] 5 Chioma ALBRECHT 2024 15 [facility] LEVOTHYROXI NE NA 200MCG TAB (SYNTHROID) TAKE ONE TABLET BY MOUTH EVERY MONTH ORAL ACTIVE TERRIE DIAZ 2018 [facility] LEVOTHYROXI NE NA 200MCG TAB (SYNTHROID) TAKE ONE TABLET BY MOUTH EVERY MORNING 30 MINUTES BEFORE BREAKFAS T ORAL ACTIVE TERRIE DIAZ 2017 [facility] MINERAL OIL,LIGHT/P ETROLATUM (PF) OINT,OPH APPLY THIN RIBBON INTO EACH EYE AT BEDTIME FOR DRY EYE OPHTHA LMIC 03/25/2024 [id number] 5 Chioma ALBRECHT NDREW E 2023 3 [facility] OLODATEROL 2.5MCG/TIOT ROPIUM 2.5MCG/ACTU AT INHL,ORAL,6 0D,4GM INHALE 2 PUFFS (1 DOSE) BY MOUTH ONCE DAILY RESPIR ATORY (INHAL ATION) ACTIVE 03/26/2025 [id number] 5 DIMPLE,[employer]ODU[employer] MOLDER IG P 2024 3 [facility] OLODATEROL 2.5MCG/TIOT ROPIUM 2.5MCG/ACTU AT INHL,ORAL,6 0D,4GM INHALE 2 PUFFS (1 DOSE) BY MOUTH ONCE DAILY RESPIR ATORY (INHAL ATION) DISCONT INUED 02/21/2025 [id number] 5 [employer] MOLDER IG P 2024 1 [facility] UMECLIDINIU M 62.5MCG/BRIAN ANTEROL 25MCG/ACTUA T INH,ORAL,30 D INHALE 1 INHALATI ON BY MOUTH ONCE DAILY RESPIR ATORY (INHAL ATION) ACTIVE TERRIE DIAZ 2022 [facility] UMECLIDINIU M/VILANTERO L (ANORO) INHL,ORAL INHALE BY MOUTH ONCE DAILY RESPIR ATORY (INHAL ATION) ACTIVE Sebastian MORA 2022 [facility] Immunizations Combined list of available immunizations from the Department of Defense and Veterans Affairs facilities. Immunization Series Date Given Administered By Site Reaction Lot Number CVX Code Drug Barrel Lathe Operator Status Comments Source COVID-19 (MODERNA), MRNA, LNP-S, PF, 100 MCG/0.5 ML DOSE 2 2020 207 complet ed MOD; [id number]; 1 [facility] [...] Dec 27, 2023 03:31 PM Reporting Lab: [facility] [place] [facility] [address] [facility] [address] Performing Lab: [facility] [place] [facility] [address] [facility] [address] [facility] HEMOGLOBI N A1C PANEL HEMOGLOBIN [...] PM Reporting Lab: [facility] [place] [address] [address] Performing Lab: [facility] [place] [address] [address] [facility] CBC LEUKOCYTES [#/VOLUME] IN BLOOD BY AUTOMATED COUNT 7.94 10*3/u L 4.50 - 11.00 12/26 Specimen Type: BLOOD No comment entered. Ordering Provider: MANOLO DIAZ Report Released Date/Time: Dec 27, 2023 03:31 PM Reporting Lab: [facility] [place] [facility] [address] [facility] [address] Performing Lab: [facility] [place] [facility] [address] [facility] [address] [facility] [place] [facility] CBC ERYTHROCYTE S [#/VOLUME] IN BLOOD BY AUTOMATED COUNT 4.90 10*6/u L 4.23 - 5.66 12/26 Specimen Type: BLOOD No comment entered. Ordering Provider: MANOLO DIAZ Report Released Date/Time: Dec 27, 2023 03:31 PM Reporting Lab: [facility] [place] [address] [address] Performing Lab: [facility] [place] [address] [address] [facility] [place] [facility] CBC HEMOGLOBIN [MASS/VOLUM E] IN BLOOD 14.7 g/dL 12.8 - 17 12/26 Specimen Type: BLOOD No comment entered. Ordering Provider: MANOLO DIAZ Report Released Date/Time: Dec 27, 2023 03:31 PM Reporting Lab: [facility] [place] [facility] [address] [facility] [address] Performing Lab: [facility] [place] [facility] [address] [facility] [address] [facility] [facility] CBC HEMATOCRIT [VOLUME FRACTION] OF BLOOD BY AUTOMATED COUNT 43.5 39.2 - 50.4 12/26 Specimen Type: BLOOD No comment entered. Ordering Provider: MANOLO DIAZ Report Released Date/Time: Dec 27, 2023 03:31 PM Reporting Lab: [facility] [place] [facility] [address] [facility] [address] Performing Lab: [facility] [place] [facility] [address] [facility] [address] [facility] [place] [facility] CBC MCV [ENTITIC VOLUME] BY AUTOMATED COUNT 88.8 fL 82 - 99 12/26 Specimen Type: BLOOD No comment entered. Ordering Provider: MANOLO DIAZ Report Released Date/Time: Dec 27, 2023 03:31 PM Reporting Lab: [facility] [place] [facility] [address] [facility] [address] Performing Lab: [facility] [place] [facility] [address] [facility] [address] [facility] [place] [facility] CBC MCHC [MASS/VOLUM E] BY AUTOMATED COUNT 33.8 g/dL 30.8 - 35.1 12/26 Specimen Type: BLOOD No comment entered. Ordering Provider: MANOLO DIAZ Report Released Date/Time: Dec 27, 2023 03:31 PM Reporting Lab: [facility] [place] [facility] [address] [facility] [address] Performing Lab: [facility] [place] [facility] [address] [facility] [address] [facility] [place] [facility] CBC PLATELETS [#/VOLUME] IN BLOOD BY AUTOMATED COUNT 263 10*3/u L 140 - 360 12/26 Specimen Type: BLOOD No comment entered. Ordering Provider: MANOLO DIAZ Report Released Date/Time: Dec 27, 2023 03:31 PM Reporting Lab: [facility] [place] [facility] [address] [facility] [address] Performing Lab: [facility] [place] [facility] [address] [facility] [address] [facility] [place] [facility] CBC ERYTHROCYTE DISTRIBUTIO N WIDTH [RATIO] BY AUTOMATED COUNT 13.2 12.0 - 16.0 12/26 Specimen Type: BLOOD No comment entered. Ordering Provider: MANOLO DIAZ Report Released Date/Time: Dec 27, 2023 03:31 PM Reporting Lab: [facility] [place] [facility] [address] [facility] [address] Performing Lab: [facility] [place] [facility] [address] [facility] [address] [facility] [place] [facility] CBC MCH [ENTITIC MASS] BY AUTOMATED COUNT 30.0 pg 26.2 - 32.6 12/26 Specimen Type: BLOOD No comment entered. Ordering Provider: MANOLO DIAZ Report Released Date/Time: Dec 27, 2023 03:31 PM Reporting Lab: [facility] [place] [address] [address] Performing Lab: [facility] [place] [address] [address] [facility] [place] [facility] BASIC METABOLIC PANEL (non-fast ing) UREA NITROGEN [MASS/VOLUM E] IN SERUM OR PLASMA 17 mg/dL 7 - 25 12/26 Specimen Type: SERUM No comment entered. Ordering Provider: MANOLO DIAZ Report Released Date/Time: Dec 27, 2023 03:31 PM Reporting Lab: [facility] [place] [facility] [address] [facility] [address] Performing Lab: [facility] [place] [address] [address] [facility] [place] [facility] BASIC METABOLIC PANEL (non-fast ing) GLUCOSE [MASS/VOLUM E] IN SERUM OR PLASMA 89 mg/dL 65 - 100 12/26 Specimen Type: SERUM No comment entered. Ordering Provider: MANOLO DIAZ Report Released Date/Time: Dec 27, 2023 03:31 PM Reporting Lab: [facility] TRN [facility] [address] [address] Performing Lab: [facility]ITALRDEKALB [facility] CENTERN [address] [address] [facility]RL [facility]ERN [facility]ENTERUSE [facility] BASIC METABOLIC PANEL (non-fast ing) SODIUM [MOLES/VOLU ME] IN SERUM OR PLASMA 140 mmol/L 135 - 145 12/26 Specimen Type: SERUM No comment entered. Ordering Provider: MANOLO DIAZ Report Released Date/Time: Dec 27, 2023 03:31 PM Reporting Lab: [facility] HOSPITALREVERGREEN MEDICAL CENTERTRN [address] [address] Performing Lab: [facility] HOSPITALRDEKALB REGIONAL MEDICAL CENTERN [facility]ENTERUSE[address] [address] [facility]RL [facility] CENTERN [facility]ENTERUSE [facility] BASIC METABOLIC PANEL (non-fast ing) POTASSIUM [MOLES/VOLU ME] IN SERUM OR PLASMA 4.0 mmol/L 3.5 - 5.0 12/26 Specimen Type: SERUM No comment entered. Ordering Provider: MANOLO DIAZ Report Released Date/Time: Dec 27, 2023 03:31 PM Reporting Lab: [facility] HOSPITALRDEKALB REGIONAL MEDICAL CENTERN [facility]ENTERUSE[address] [address] Performing Lab: [facility]ITALRL TRN [facility] CENTERUSETS [address] [address] [facility]OS[facility]ITALRDEKALB REGIONAL MEDICAL CENTERN [facility] CENTERUSE [facility] BASIC METABOLIC PANEL (non-fast ing) CHLORIDE [MOLES/VOLU ME] IN SERUM OR PLASMA 107 mmol/L 100 - 110 12/26 Specimen Type: SERUM No comment entered. Ordering Provider: MANOLO DIAZ Report Released Date/Time: Dec 27, 2023 03:31 PM Reporting Lab: [facility] HOSPITALREVERGREEN MEDICAL CENTERTRN [facility]ENTERUSE[address] [address] Performing Lab: [facility] HOSPITALREVERGREEN MEDICAL CENTER[address] [address] [facility] BASIC METABOLIC PANEL (non-fast ing) CARBON DIOXIDE, TOTAL [MOLES/VOLU ME] IN SERUM OR PLASMA 23 meq/L 20 - 30 12/26 Specimen Type: SERUM No comment entered. Ordering Provider: MANOLO DIAZ Report Released Date/Time: Dec 27, 2023 03:31 PM Reporting Lab: [address] [address] Performing Lab: [address] [address] [facility] BASIC METABOLIC PANEL (non-fast ing) CREATININE [MASS/VOLUM E] IN SERUM OR PLASMA 0.96 mg/dL 0.50 - 1.40 12/26 Specimen Type: SERUM No comment entered. Ordering Provider: MANOLO DIAZ Report Released Date/Time: Dec 27, 2023 03:31 PM Reporting Lab: [address] [address] Performing Lab: [address] [address] [facility] BASIC METABOLIC PANEL (non-fast ing) GLOMERULAR FILTRATION RATE/1.73 SQ M.PREDICTED [VOLUME RATE/AREA] IN SERUM, PLASMA OR BLOOD BY CREATININE- BASED FORMULA (CKD-EPI 2020) 81 mL/min 60 12/26 Specimen Type: SERUM No comment entered. Ordering Provider: MANOLO DIAZ Report Released Date/Time: Dec 27, 2023 03:31 PM Reporting Lab: [address] [address] Performing Lab: [address] [address] [facility] LIVER FUNCTION PROTEIN [MASS/VOLUM E] IN SERUM OR PLASMA 6.4 g/dL 6.0 - 8.3 12/26 Specimen Type: SERUM No comment entered. Ordering Provider: MANOLO DIAZ Report Released Date/Time: Dec 27, 2023 03:31 PM Reporting Lab: [facility] [place] [facility] [address] [facility] [address] Performing Lab: [facility] [place] [facility] [address] [facility] [address] [facility] [place] [facility] LIVER FUNCTION ALBUMIN [MASS/VOLUM E] IN SERUM OR PLASMA 3.8 g/dL 3.5 - 5.0 12/26 Specimen Type: SERUM No comment entered. Ordering Provider: MANOLO DIAZ Report Released Date/Time: Dec 27, 2023 03:31 PM Reporting Lab: [facility] [place] [facility] [address] [facility] [address] Performing Lab: [facility] [place] [facility] [address] [facility] [address] [facility] [place] [facility] LIVER FUNCTION ALKALINE PHOSPHATASE [ENZYMATIC ACTIVITY/VO LUME] IN SERUM OR PLASMA 56 U/L 40 - 150 12/26 Specimen Type: SERUM No comment entered. Ordering Provider: MANOLO DIAZ Report Released Date/Time: Dec 27, 2023 03:31 PM Reporting Lab: [facility] [place] [facility] [address] [facility] [address] Performing Lab: [facility] [place] [facility] [address] [facility] [address] [facility] [place] [facility] LIVER FUNCTION ASPARTATE AMINOTRANSF ERASE [ENZYMATIC ACTIVITY/VO LUME] IN SERUM OR PLASMA 18 U/L 5 - 34 12/26 Specimen Type: SERUM No comment entered. Ordering Provider: MANOLO DIAZ Report Released Date/Time: Dec 27, 2023 03:31 PM Reporting Lab: [facility] [place] [facility] [address] [facility] [address] Performing Lab: [facility] [place] [facility] [address] [facility] [address] [facility] [place] [facility] LIVER FUNCTION ALANINE AMINOTRANSF ERASE [ENZYMATIC ACTIVITY/VO LUME] IN SERUM OR PLASMA 15 U/L 12/26 Specimen Type: SERUM No comment entered. Ordering Provider: MANOLO DIAZ Report Released Date/Time: Dec 27, 2023 03:31 PM Reporting Lab: [facility] [place] [facility] [address] [facility] [address] Performing Lab: [facility]ENTERUSETS [facility] [address] [facility] [address] [facility]RL WSTRN [facility]USE [facility] LIVER FUNCTION BILIRUBIN.T OTAL [MASS/VOLUM E] IN SERUM OR PLASMA 0.6 mg/dL 0.2 - 1.2 12/26 Specimen Type: SERUM No comment entered. Ordering Provider: MANOLO DIAZ Report Released Date/Time: Dec 27, 2023 03:31 PM Reporting Lab: [facility]PITALRL TRN [facility] CENTERUSE[address] [address] Performing Lab: [facility]ENTERUSE[address] [address] [facility]ITALRL WSTRN [facility] CENTERUSE [facility] LIPID PANEL, NON FASTING CHOLESTEROL [MASS/VOLUM E] IN SERUM OR PLASMA 153 mg/dL 12/26 Specimen Type: SERUM No comment entered. Ordering Provider: MANOLO DIAZ Report Released Date/Time: Dec 27, 2023 03:31 PM Reporting Lab: [facility]RL WSTRN [address] [address] Performing Lab: [facility] [place] [address] [address] [facility]RL WSTRN [facility] LIPID PANEL, NON FASTING TRIGLYCERID E [MASS/VOLUM E] IN SERUM OR PLASMA 105 mg/dL 0 - 150 12/26 Specimen Type: SERUM No comment entered. Ordering Provider: MANOLO DIAZ Report Released Date/Time: Dec 27, 2023 03:31 PM Reporting Lab: [facility]RL WSTRN [facility]ENTERUSE[address] [address] Performing Lab: [facility] [address] [address] [facility] [place] [facility] LIPID PANEL, NON FASTING CHOLESTEROL IN LDL [MASS/VOLUM E] IN SERUM OR PLASMA BY CALCULATION 86 mg/dL 0 - 129 12/26 Specimen Type: SERUM No comment entered. Ordering Provider: MANOLO DIAZ Report Released Date/Time: Dec 27, 2023 03:31 PM Reporting Lab: [facility] [place] [facility] [address] [facility] [address] Performing Lab: [facility] [place] [facility] [address] [facility] [address] [facility]RL [facility]N [place] [facility] LIPID PANEL, NON FASTING CHOLESTEROL .TOTAL/CHOL ESTEROL IN HDL [MASS RATIO] IN SERUM OR PLASMA 3.3 12/26 Specimen Type: SERUM No comment entered. Ordering Provider: MANOLO DIAZ Report Released Date/Time: Dec 27, 2023 03:31 PM Reporting Lab: [facility] [place] [facility] [address] [facility] [address] Performing Lab: [facility] [place] [facility] [address] [facility] [address] [facility] [place] [facility] LIPID PANEL, NON FASTING CHOLESTEROL IN HDL [MASS/VOLUM E] IN SERUM OR PLASMA 46 mg/dL 40 - 60 12/26 Specimen Type: SERUM No comment entered. Ordering Provider: MANOLO DIAZ Report Released Date/Time: Dec 27, 2023 03:31 PM Reporting Lab: [facility] [place] [facility] [address] [facility] [address] Performing Lab: [facility] [place] [address] [address] [facility]N [place] [facility] Vital Signs Combined list of inpatient and outpatient Vital Signs from Department of Defense and Veterans Affairs, ranging from 12 months to all on record, depending upon the facility. Vital Sign Value Date Comments Source SYSTOLIC BLOOD PRESSURE 132 01/10/20 24 13:41:12 [facility] [place] [facility] DIASTOLIC BLOOD PRESSURE 78 024 13:41:12 VA [...] Source [facility] [place] 1/ [id number] Diagnos is: ICD-10- CM H40.013 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, low risk, bilater DOMINIC Hickey ROXANN E 03/25 [facility] FIT SPECTACLES MULTIFOCAL [id number] Diagnos is: ICD-10- CM Z46.0 Encount er for fit/adj st of spectac les and contact lenses DOMINIC ALBRECHT E 03/26 [facility] Out[facility] Encounter [id number] TAYLOR PORRAS ISTOPHER E 05/13 [facility] Encounter [id number] 05/14 [facility] En[facility] [id number] 05/15 [facility] En[facility] [id number] 07/01 [facility] Encounter [id number] Diagnos is: ICD-10- CM Z02.89 Encount er for other adminis trative examina tiASHLEY Chávez 07/03 [facility] En[facility] [id number] 07/10 [facility] En[facility] [id number] 10/27 [facility] En[facility] [id number] 11/04 [facility] Encounter [id number] 11/28 [facility] Encounter [id number] 12/22 [facility] Outpatient Encounter [id number] 12/25 [facility] OFFICE O/P EST MOD 30 MIN [id number] Diagnos is: ICD-10- CM Z86.018 Persona l history of other benign neoplas GABRIELLA Piper 12/25 [facility] OFFICE O/P EST MOD 30 MIN [id number] Diagnos is: ICD-10- CM I48.91 Unspeci fied atrial fibrill ation Terri DIAZ 12/26 [facility] OFF/OP EST MAY X REQ PHY/QHP [id number] 1. Diagnos is: ICD-10- CM H61.23 Impacte d usama , NIRMAL Lugo 01/09 [facility] Outpatient Encounter [id number] 1.01/09 [facility] [id number] 02/19 [facility] Out[facility]counter [id number] 03/24 [facility] EXT[place] XM [id number] Diagnos is: ICD-10- CM H40.013 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, low risk, bilDOMINIC Goldstein 03/24 [facility] CPTRZD [place] [id number] Diagnos is: ICD-10- CM H40.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 TRENA,DOMINIC HACKETT E 03/24 [facility] COM[place] 1/ [id number] Diagnos is: ICD-10- CM H04.123 Dry eye syndrom e of bilater al lacrima l glands DOMINIC ALBRECHT E 03/24 [facility] FIT SPECTACLES MULTIFOCAL [id number] Diagnos is: ICD-10- CM Z46.0 Encount er for fit/adj st of spectac les and contact lenses DOMINIC ALBRECHT E 03/25 [facility] Out[facility] Encounter [id number] 04/02 [facility] [id number] NIRMAL TOM 06/15 [facility] Out[facility] Encounter [id number] 09/11 [facility] Social History Combined list of available smoking, tobacco, and other social history from [facility] of Defense and [facility] facilities. Social History Type Response Date Comment [facility] e Tobacco smoking status DCIS VA-[facility] FORMER USER 12[facility]27[facility]2023 [facility] [facility] History of tobacco use VA-TOBACCO QUIT 15 YRS OR MORE 12/27/2023 [facility] [place] [facility] of [facility] History of tobacco use ME-TOBACCO FORMER USER 05/19/2021 [facility] History of tobacco use ME-TOBACCO FORMER USER 03/24/2020 [facility] History of tobacco use QUIT TOBACCO USE > 7 YEARS AGO 09/17/2017 [facility] Plan of Care List of future care activities from [facility] facilities. Additional future care activities may be listed in the Assessment and Plan section. Date/Time Care Activity Care Activity Detail Facili ty 12/24/2024 AMBULATORY - MEDICINE AMBULATORY - MEDICI [facility]
[2024-09-16 11:54] VITALS: BP 138/66; PULSE 70; TEMP 36.6; O2SAT 95; BMI 29.1
--- NOTE | 2024-09-16 11:54 | AM.OFFWIN_ITS ---
Intake Vital Signs 09/16/24 11:54 Height 6 ft 3 in Weight 233 lb BMI 29.1 BP 138/66 Blood Pressure Location Lt brachial Position Sitting Pulse 70 Pulse Source Pulse Oximeter Temp 97.9 F Temp Source Oral Pulse Oximetry (%) 95 Oxygen Delivery Method Room Air Intake Visit Reasons: EP-cough, chest cold Intake Note: presents with dry cough with chest congestion/rattling Patient Tobacco Use Status: Former Tobacco user Allergies No Known Allergies Allergy (Verified 09/16/24 11:56) Do you need a note to return to daycare/school/sports/work: No HPI HPI Comments History of Present Illness Details History - The patient is a 79-year-old male pres enting with a persistent cough and chest congestion. - The cough began a week ago and is desc ribed as dry, with no sputum production. - The patient reports associated symptom s of sore throat and shortness of breath, but denies ear pain and fever. - The patient has a history of Chronic O bstructive Pulmonary Disease (COPD) and uses an inhaler, which has not alleviated the cough but aids in breathing. - The patient denies any recent chest pa in except when coughing. - He has no sick contacts. - He has been eating and drinking. - He denies fever, chills, CP, SOB, abd pain, n/v/d, MARIANO Physical Exam General: Cooperative, healthy appearing, comfortable and no acute distress Orientation/consciousness: Patient oriented x3 Limitations: No limitations Head: Normal to inspection Ears: Hearing grossly normal bilaterally, external ears normal and TM's normal bilaterally Nose: Normal external nose present, normal nares present, and no nasal discharge present. Face and sinus: Sinuses nontender to palpation. Mouth: Normal oral and palatal mucosa present and moist mucous membranes noted. Throat: Tonsils normal. Uvula is midline. Posterior oropharynx with erythema and no exudates. Eyes: Appearance normal, both eyes and all related structures Neck: Normal visual inspection, full ROM. No lymphadenopathy noted. Respiratory: Clear to auscultation bilaterally. Normal respiratory effort, able to speak in complete sentences. No respiratory distress, not tachypneic, no tripod positioning and no use of accessory muscles. Breathing is a little bit shorter. Cardiovascular: Regular rate and rhythm. Normal S1 and S2 Skin: No rashes or lesions noted Patient was informed and verbally consented to the use of an ambient scribe for clinic note documentation during this visit [facility] Surgical History Hx of spinal surgery History of ptosis repair Voice impairment History of transurethral resection of prostate Epidermal inclusion cyst History of right knee surgery S/P foot surgery, right Right shoulder injury History of thyroidectomy Neoplasm of right patella Inguinal hernia bilateral, non-recurrent Left hand pain Family History Mother Coronary artery disease Pulmonary embolism Father Cancer of prostate Social History Housing: House Alcohol intake: never Patient Tobacco Use Status: Former Tobacco user Cigarette Packs Per Day: 0.5 Years Smoked: 3 e-Cigarette/Vaping Use: Never Used Second Hand Smoke Exposure: No service: Yes Current occupational status: retired Cognitive needs: No Hearing needs: Yes (bilateral hearing aids) Vision needs: Yes (glasses) Review of Systems Const All systems reviewed & are unremarkable except as noted in HPI and below Physical Exam Vital Signs: Last Vital Signs Temp 97.9 F 09/16/24 11:54 Pulse 70 09/16/24 11:54 BP 138/66 09/16/24 11:54 Pulse Ox 95 09/16/24 11:54 Oxygen Delivery Method Room Air 09/16/24 11:54 BMI result Body Mass Index 29.1 Assessment & Plan Assessment & Plan (1) Cough: Code(s): R05.9 - Cough, unspecified Qualifiers: Cough type: acute Qualified Code(s): R05.1 - Acute cough Plan Most likely URI vs viral illness vs CAP vs covid vs flu vs RSV vs COPD exacerbation Rapid strep was negative in the office Plan - Continue with inhalers - Prescribe antibiotics and cough medicine to address the cough and potential ba cterial infection. - Administer prednisone to reduce inflammation and assist with respiratory symptoms. - Order a chest x-ray to rule out pneumonia and ensure no other underlying conditions are missed. - Conduct tests for RSV and influenza to exclude other viral infections. - VSS, pt well appearing Orders: Orders XR chest 2V Today R05.9 - Cough, unspecified SARS-CoV2/FLU/RSV Today R09.89 - Other specified symptoms and signs involving the circulatory and respiratory systems Medications: New prednisone 40 mg (2 x 20 mg) PO DAILY 10 tabs 0RF codeine-guaifenesin 10-100 mg/5 mL (Virtussin AC) 5 mL PO Q6H PRN 118 mL 0RF allergy symptoms 7 days azithromycin For 250 mg dose pack: take 500 mg today (day 1), then 250 mg for 4 days (days 2-5) PO 6 tabs 0RF Coding Level of Care Code Est Pt Level 4 (53660) Diagnoses Acute cough R05.1 Cough type: acute
--- OUTSIDE RECORDS SUMMARY | 2024-09-16 12:09 | XMS_ITS | Encounter Summary ---
Author Organization [facility] Address [address] [place] [address] Care Team Providers Care Health Promotion Specialist Name Role Phone Pcp, No Primary Care Provider Unavailabl e Unknown Primary Care Provider [phone] Aaliyah Carrillo MD Primary Care Provider Encounter Details Date Type Department Care Team (Late st Contact Info) Description 12/19/2020 Scanned Document [facility] Heart & Vascular [place] at [address] [phone] Provider, External, [address] [place] [address] Social History Tobacco Use Types Packs/Day Years [...] on filedocumented in this encounter Care Teams Health Promotion Specialist Relationship Specialty Start Date End Date Pcp, No PCP - General General Medicine 12/19/20 04/14/23 Unknown Unknow Provider Address PCP - General 04/16/23 06/11/23 Aaliyah Carrillo MD [address] [place] [phone] PCP - General Internal Medicine 06/12/23 Aaliyah Carrillo [address] [place] [address], [place] [address], [place] [address] Primary Care Provider Internal Medicine 04/15/23 Aaliyahdarryl Carrillo [address] [place] [address], [address] [address] Primary Care Provider Internal Medicine 04/15/23 Benji Hardwick [address] [place] [address] Physician Pulmonary Disease 04/15/23 documented as of this encounter
--- OUTSIDE RECORDS SUMMARY | 2024-09-16 12:09 | XMS_ITS | Clinical Summary ---
Author Organization [employer] Address [address] [facility] [address]t [place] [address] Care Team Providers Care Salt Plant Operator Name Role Phone Unavailable Primary Care [...]
--- OUTSIDE RECORDS SUMMARY | 2024-09-16 12:09 | XMS_ITS | Clinical Summary ---
Author Organization [facility] Address [address] [place], [place] [id number] Care Team Providers Care Tripper Name Role Phone Aaliyah Carrillo MD Primary Care Provider [phone] Allergies No known active allergies Medications Medication [...] age to complete this topic Care Teams Tripper Relationship Specialty Start Date End Date Aaliyah Carrillo MD PCP - General Internal Medicine 08/24/19
== END 2024-09-16 14:16 | disposition home or self-care (01) ==
PROVIDERS: PCP Internal Medicine; Visit Provider Physician Assistant Medical
DX: Z13.9 Encounter for screening, unspecified (principal)

== ENCOUNTER → 2024-09-16 13:08 | Outpatient (BNV) | payer MEDICARE, SELFPAY | PROVIDERS: PCP Internal Medicine; Visit Provider Radiology Diagnostic Radiology | DX: R05.9 Cough, unspecified (principal) | CPT/HCPCS: 71046 ==

== ENCOUNTER 2024-10-29 08:46 | Outpatient (AMB) | payer MEDICARE, SELFPAY ==
--- NOTE | 2024-10-29 08:52 | A.OFFPC_ITS ---
Vital Signs 10/29/24 09:00 Height 6 ft 3 in Weight 223 lb 8 oz BMI 27.9 BP 138/65 Blood Pressure Location Lt brachial Position Sitting Respiration 16 Pulse 68 Pulse Source Pulse Oximeter Temp 97.9 F Temp Source Temporal Artery Scan Pulse Oximetry (%) 98 Oxygen Delivery Method Room Air Intake Visit Reasons: f/up Intake Note: patient here for follow up. Preschool Director Required: No Allergies No Known Allergies Allergy (Verified 10/29/24 08:57) Tobacco use date assessed: 10/29/24 Fall risk assessment: No Falls in past year Last assessed Fall Risk: 10/29/24 Dental Screening Dental Screen Date: 10/29/24 Did you have a dental visit in the last 12 months?: Yes Did you have a dental problem in the last 6 months where you did not have access to dental care?: No Was dental information given to patient?: Patient has dentist HPI HPI Comments History of Present Illness Details The patient is a 79 year old male with a past medical history of metastatic papillary thyroid cancer, hypothyroid, hyperlipidemia, arthritis presenting for ER follow up Seen in June at [facility] ER for flare in bilateral knee pain. Has seen ortho since. Plan for euflexxa right knee. Has been having pedal edema and some orthopnea. Completed prednisone. Still on naproxen. No diet changes. Has had echo not too long ago. Thyroid cancer: Endocrine, Dr aRjan monitoring. u/s and blood work every six months. Continued levothyroxine. MSK: Underwent back surgery at [facility]. Back pain is decreased. Stable bilateral leg pain, shooting. Tried gabapentin in the past, duloxetine. GI:globus, difficulty swallowing at times, tightness. Saw [facility] GI in June. Plan for MBS and EGD CV: On atorvastatin. Chronic intermittent transient shortness of breath. Afib or similar suspected. Declined AC. Underwent thorough cardiopulmonary work up. Rsp: Follows with Dr Hardwick. On Anoro. stable. CT 12/2023 with stabl b/l GGO and pulm nodules Follows with urology with [facility]. Colonoscopy [facility] ROS see HPI PHYSICAL EXAM: GENERAL: Alert and oriented x 3. NAD EYES: EOMI. Anicteric. HENT: Moist mucous membranes. No scleral icterus. No cervical lymphadenopathy. LUNGS: Inspiratory crackles CARDIOVASCULAR: Regular rate and rhythm. No murmur. +JVD on HJR ABDOMEN: Soft, non-tender +bs EXTREMITIES: Pedal edema. +DP pulses SKIN: No rashes or lesions. Warm. NEUROLOGIC: No focal neurological deficits. CN II-XII grossly intact PSYCHIATRIC: Cooperative. Appropriate mood and affect [facility] Surgical History Hx of spinal surgery History of ptosis repair Voice impairment History of transurethral resection of prostate Epidermal inclusion cyst History of right knee surgery S/P foot surgery, right Right shoulder injury History of thyroidectomy Neoplasm of right patella Inguinal hernia bilateral, non-recurrent Left hand pain Family History Mother Coronary artery disease Pulmonary embolism Father Cancer of prostate Social History Housing: House Alcohol intake: never Patient Tobacco Use Status: Former Tobacco user Cigarette Packs Per Day: 0.5 Years Smoked: 3 e-Cigarette/Vaping Use: Never Used Second Hand Smoke Exposure: No service: Yes Current occupational status: retired Cognitive needs: No Hearing needs: Yes (bilateral hearing aids) Vision needs: Yes (glasses) Questionnaire Thrive Questionnaire Date Thrive assessed: 03/16/24 I am a: Patient What is your living situation today?: I have a steady place to live Within the past 12 months, did the food you bought not last and you didn't have the money to get more?: Never true Within the past 12 months, did you worry whether your food would run out before you got money to buy more?: Never true Do you have trouble paying for medicines?: No Do you have trouble getting transportation to medical appointments?: No Do you have trouble paying your heating and electricity bill?: No Do you have trouble taking care of your child, family member or friend?: No Do you have trouble with day-to-day activities such as bathing, preparing meals, shopping, managing finances, etc.?: I choose not to answer this question Are you currently unemployed and looking for a job?: I choose not to answer this question Are you interested in more education?: No Please select the resources that you would like help with: None Currently or been in a relationship where the following occur: No concerns reported THRIVE Score: 0 MEEK-7 AMB Questionnaire MEEK-7 Date MEEK - 7 assessed: 07/28/24 Source: Developed by Drs. Pavan Phillip, Kim Garland, Jay Abreu and colleagues, with an educational collins from [employer]. Physical exam (Primary Care) Vital Signs: Last Vital Signs Temp 97.9 F 10/29/24 09:00 Pulse 68 10/29/24 09:00 Resp 16 10/29/24 09:00 BP 138/65 10/29/24 09:00 Pulse Ox 98 10/29/24 09:00 Oxygen Delivery Method Room Air 10/29/24 09:00 BMI result Body Mass Index 27.9 Tobacco/Smoking Status: Tobacco use Status Tobacco use date assessed 10/29/24 10/29/24 09:03 Patient Tobacco Use Status Former Tobacco user 10/29/24 08:54 e-Cigarette/Vaping Use Never Used 10/29/24 08:54 Thrive Assessment: Date of Thrive Assessment Date Thrive assessed 03/16/24 10/29/24 08:54 Currently or been in a relationship where the following occur: No concerns reported Immunizations Boostrix Tdap 2.5 Lf unit-8 mcg-5 Lf/0.5 mL intramuscular syringe Performing Provider: Aaliyah Carrillo MD Performing Location: [facility] Family Medicine Administered by: Magdy Padilla RN on 10/29/24 10:04 Dose Route Admin Location Dispensed Lot Number Expiration Date [facility] [employer] Routeman 0.5 mL IM Right Deltoid 0.5 mL [id number] 12/23/26 71609-287-00 [employer] Total Dispensed Waste 0.5 mL 0 % VIS Given Date VIS Provided VIS Publication Date 10/29/24 Single Vaccine 20 Eligibility Eligibility Date Funding Source Not [facility] Eligible 10/29/24 Private Coding Assessment & Plan Assessment & Plan Orders: Orders Lipid Panel Today C73 - Malignant neoplasm of thyroid gland, C79.9 - Secondary malignant neoplasm of unspecified site, R06.09 - Other forms of dyspnea, R13.10 - Dysphagia, unspecified TSH reflex Free T4 Today C73 - Malignant neoplasm of thyroid gland, C79.9 - Secondary malignant neoplasm of unspecified site, R06.09 - Other forms of dyspnea, R13.10 - Dysphagia, unspecified Comprehensive Met. Panel Today C73 - Malignant neoplasm of thyroid gland, C79.9 - Secondary malignant neoplasm of unspecified site, R06.09 - Other forms of dyspnea, R13.10 - Dysphagia, unspecified Complete Blood Count Auto Diff Today C73 - Malignant neoplasm of thyroid gland, C79.9 - Secondary malignant neoplasm of unspecified site, R06.09 - Other forms of dyspnea, R13.10 - Dysphagia, unspecified TDaP Immunization Today Z23 - Encounter for immunization Medications: New Auvi-Q (epinephrine) for 3 doses 0.3 mg (0.3 mL) IM Q10M PRN 2 ea 1RF anaphylaxis NS Refilled levothyroxine 200 mcg PO DAILY 90 tabs 3RF
[2024-10-29 09:00] VITALS: BP 138/65; PULSE 68; RESP 16; TEMP 36.6; O2SAT 98; BMI 27.9
--- OUTSIDE RECORDS SUMMARY | 2024-10-29 09:53 | XMS_ITS | Clinical Summary ---
Author Organization [facility] Address [address] [place], [place] [id number] Care Team Providers Care Vendor Representatives Name Role Phone Aaliyah Carrillo MD Primary Care Provider [phone] Allergies No known active allergies Medications Medication [...] age to complete this topic Care Teams Vendor Representatives Relationship Specialty Start Date End Date Aaliyah Carrillo MD PCP - General Internal Medicine 08/24/19
--- OUTSIDE RECORDS SUMMARY | 2024-10-29 09:53 | XMS_ITS | Encounter Summary ---
Author Organization [facility] Address [address] [place] [address] Care Team Providers Care Drug Counselor Name Role Phone Pcp, Janene Primary Care Provider Unavailabl e Unknown Primary Care Provider [phone] Aaliyah Carrillo MD Primary Care Provider [phone] Encounter Details Date Type Department Care Team (Late st Contact Info) Description 12/27/2020 Scanned Document [facility] Pulmonary and Critical Care[address] [phone] Pulmonary, Scan Social History Tobacco [...] on filedocumented in this encounter Care Teams Drug Counselor Relationship Specialty Start Date End Date Pcp, No PCP - General General Medicine 12/19/20 04/14/23 Unknown Unknow Provider Address PCP - General 04/16/23 06/11/23 Aaliyah Carrillo MD [address] [place] [phone] PCP - General Internal Medicine 06/12/23 [address] [facility], [address] [address] Primary Care Provider Internal Medicine 04/15/23 Aaliyah Carrillo [address] [place] [address], [place] [address], [place] [address] Primary Care Provider Internal Medicine 04/15/23 Benji Hardwick [address] [place] [address] Physician Pulmonary Disease 04/15/23 documented as of this encounter
--- OUTSIDE RECORDS SUMMARY | 2024-10-29 09:53 | XMS_ITS | Clinical Summary ---
Author Organization [facility] Address [address] [place] [address] Care Team Providers Care Field Marketing Lead Name Role Phone Aaliyah Carrillo MD Primary Care Provider [phone] Allergies No known active allergies Medications levothyroxine [...] 0.6 oz pur e alcohol) [facility] Utilities Answer Date Recorded In the past 12 months has e [employer], gas, oil, or water [employer] threatened to shut off services in your [...] 61 08/09/2023 11:31 AM EDT Temperature 36.3 C (97.4 F) 06/13/2023 10:00 AM EDT Respiratory Rate 18 07/01/2023 1:42 PM EDT Oxygen Saturation 98% 08/09/2023 11:31 AM EDT Inhaled Oxygen Concentration - - Weight 102 kg (225 lb) 08/09/2023 11:31 AM EDT Height 190.5 cm (6' 3 ) 08/09/2023 11:31 AM EDT Body Mass Index 28.12 08/09/2023 11:31 AM EDT Plan of Treatment Health Maintenance Due Date Last Done Comments Advance Care Planning 1945 Hepatitis C Virus Screening 1945 DTaP/Tdap/Td Vaccines (1 - Tdap) 1966 Pneumococcal Vaccines 50+ (1 of 1 - PCV) 1997 Zoster (Shingles) Vaccine (1 of 2) 1997 RSV Vaccine 60 years and older and Patients (1 - 1-dose 75+ series) 2022 Influenza Vaccine 09/18/2024 12/28/2016, 12/11/2013 COVID-19 Vaccine ( season) 2024 05/11/2020, 04/13/2020 Chronic Controlled Substance User PDMP Review Discontinued 04/16/2023 Hepatitis B Vaccines Aged Out No long er eligible based on patient's age to complete this topic Insurance [facility] COMMERCIAL MEDICARE PART A & [place] [id number] [facility] Eddy FEE BASIS 18 F,ATTN:[place] [address] Advance Directives * Full Code (Latest Code Status on File) Date Activated Date Inactivated Comments 06/12/2023 11:05 AM Question Answer Comments Decision Thoroughly Discussed with: Patient * Full Code Date Activated Date Inactivated Comments 06/12/2023 5:45 AM 06/12/2023 11:05 AM Care Teams Field Marketing Lead Relationship Specialty Start Date End Date Aaliyah Carrillo MD [address] [place] [phone] PCP - General Internal Medicine 06/12/23 Aaliyah Carrillo [address] [place] [address], [facility] [address], [place] [address] Primary Care Provider Internal Medicine 04/15/23 Benji Hardwick [address] [place] [address] Physician Pulmonary Disease 04/15/23
--- OUTSIDE RECORDS SUMMARY | 2024-10-29 09:53 | XMS_ITS | Encounter Summary ---
Author Organization [facility] Address [address] [place] [address] Care Team Providers Care Parking Lot Supervisor Name Role Phone Pcp, No Primary Care Provider Unavailabl e Unknown Primary Care Provider +[phone] -[phone] Aaliyah Carrillo MD Primary Care Provider [phone] Encounter Details Date Type Department Care Team (Late st Contact Info) Description 12/19/2020 Scanned Document [facility] Heart & Vascular [place] at [address] [phone] Provider, External, [address] [place] [address] Social History Tobacco Use Types Packs/Day Years [...] on filedocumented in this encounter Care Teams Parking Lot Supervisor Relationship Specialty Start Date End Date Pcp, No PCP - General General Medicine 12/19/20 04/14/23 Unknown Unknow Provider Address PCP - General 04/16/23 06/11/23 Aaliyah Carrillo MD [address] [place] [phone] PCP - General Internal Medicine 06/12/23 Aaliyah Carrillo [address] [place] [address], [place] [address], [place] [address] Primary Care Provider Internal Medicine 04/15/23 Aaliyahdarryl Carrillo [address] [place] [address], [address] [address] Primary Care Provider Internal Medicine 04/15/23 Benji Hardwick [address] [place] [address] Physician Pulmonary Disease 04/15/23 documented as of this encounter
--- OUTSIDE RECORDS SUMMARY | 2024-10-29 09:53 | XMS_ITS | Clinical Summary ---
Author Organization [employer] Address [address] [facility] 7t [place] [address] Care Team Providers Care Piano Tuner Name Role Phone Unavailable Primary Care Provider [...] COVID-19 Vaccine (1 - 2023-2 5 season) 2024 Influenza Vaccine (#1) 2024 HIB Vaccines Aged [...]
--- OUTSIDE RECORDS SUMMARY | 2024-10-29 09:53 | XMS_ITS | Encounter Summary ---
Author Organization [facility] Address [address] [facility] 7t [place] [address] Care Team Providers Care Art Gilder Name Role Phone Unavailable Primary Care Provider [...]
== END 2024-10-29 09:20 | disposition home or self-care (01) ==
LOC: HO.HMCFM 08:47
PROVIDERS: PCP Internal Medicine; Visit Provider Internal Medicine
DX: Z23 Encounter for immunization (principal)

== ENCOUNTER 2024-10-29 08:46 | Outpatient (REF) | payer MEDICARE, SELFPAY ==
--- OUTSIDE RECORDS SUMMARY | 2013-01-08 01:00 | XMS_ITS | Encounter Summary ---
Author Organization [facility] Address [address] [place] [phone] Phone Care Team Providers Care Cane Flume Watcher Name Role Phone Unavailable Primary Care Provider Unavailabl e Encounter Details Date Type Department Care Team (Late st Contact Info) Description 01/08/2013 Hospital Encounter [facility],Outside Imaging [address] [place] [address] System, Provider Not In, [place] [address] Social History Tobacco Use Types Packs/Day Years [...] 11:10 AM EDT Hyun Carrasquillo RN * [place] Suicide Severity Rating Scale (Screener/Recent Self-Report) Question [...] st Contact Info) Description 02/20/2024 Procedure Pass [facility] Radiology [address] [place] [address] 02/25/2025 2:00 PM EST Appointment [address] [address] Benji Hardwick MD, MPH [address] [place] [phone] [email or web address] 02/25/2025 2:30 PM EST Appointment [facility] Pulmonary Function Lab [address] [place] [address] Benji Hardwick MD, MPH [address] [place] [phone] [email or web address] 02/25/2025 3:40 PM EST Office Visit [facility] [address] [place] [address] Benji Hardwick MD, MPH [address] [place] [phone] [email or web address] 03/19/2025 9:40 AM EST Office Visit [facility] [address] [place] [address] Tanisha Rajan MD [address] [place] [phone] [email or web address] documented as of this encounter Procedures Procedure [...] It is not the complete legal health record.[facility]
--- OUTSIDE RECORDS SUMMARY | 2024-10-29 11:28 | XMS_ITS | Encounter Summary ---
Author Organization [facility] Address [address] [facility] [address] [place] [address] Phone Care Team Providers Care Escort Patients Name Role Phone Aaliyah Smith MD Primary Care Provider Sudhakar Curtis MD Unavailable [phone] Aaliyah Smith MD Primary Care Provider [phone] Encounter Details Date Type Department Care Team (Late st Contact Info) Description 05/14/2023 Ancillary Orders [facility], X-Ray - [facility] [address] [place] [address] Aaliyah Smith MD [address] [place] [address] [phone] Encounter for other preprocedural examination (Primary Dx) Social History Tobacco Use Types Packs/Day Years [...] st Contact Info) Description 02/20/2024 Procedure Pass [facility] Radiology [address] [place] [address] 02/25/2025 2:00 PM EST Appointment [facility] Radiology [address] [place] [address] Benji Hardwick MD, MPH [address] [place] [phone] [email or web address] 02/25/2025 2:30 PM EST Appointment [facility] Pulmonary Function Lab [address] [place] [address] Benji Hardwick MD, MPH [address] [place] [phone] [email or web address] 02/25/2025 3:40 PM EST Office Visit [facility] [address] [place] [address] Benji Hardwick MD, MPH [address] [place] [phone] [email or web address] 03/19/2025 9:40 AM EST Office Visit [facility] [address] [place] [address] Tanisha Rajan MD [address] [address] documented as of this encounter Results * XR CHEST PA AND LATERAL 2 VIEWS (05/14/2023 11:22 AM EDT) Anatomical Region Laterality Modality Chest Computed Radiogr aphy 05/14/2023 2:24 PM EDT Impressions 05/14/2023 2:27 PM EDT No acute findings. Narrative 05/14/2023 2:27 PM EDT XR CHEST PA AND LATERAL 2 VIEWS Referring clinician's provided indication for this examination in [facility]: Pre-Op COMPARISON: 06/19/2022 FINDINGS: Lungs: Clear lungs. Pleura: No pleural effusion. No pneumothorax Heart/Mediastinum: Heart size normal. Bones/Soft Tissues: No acute finding Procedure Note Kyler Harris MD, SIRIA - 05/14/2023 XR CHEST PA AND LATERAL 2 VIEWS Referring clinician's provided indication for this examination in [facility]:Pre-Op COMPARISON: 06/19/2022 FINDINGS: Lungs: Clear lungs. Pleura: No pleural effusion. No pneumothorax Heart/Mediastinum: Heart size normal. Bones/Soft Tissues: No acute finding IMPRESSION: No acute findings. Aaliyah Smith MD IMG XR CHEST Final Result documented in this encounter Visit Diagnoses Diagnosis Encounter for other preprocedural examination- Primary Encounter for other preprocedural examination documented in this encounter Additional Health Concerns Assessment Noted Time PHQ-2 Depression Total Score: 0 12/26/19 23 9:51 AM EST documented as of this encounter Care Teams Escort Patients Relationship Specialty Start Date End Date Aaliyah Smith MD PCP - General Internal Medicine 01/01/18 07/10/23 Aaliyah Smith MD PCP - General Internal Medicine 11/14/23 Sudhakar Curtis MD [address] [place] [phone] [email or web address] Surgery 12/21/22 documented as of this encounter Additional Source Comments The information contained in this document represents components of the legal health record. It is not the complete legal health record.[facility]
--- OUTSIDE RECORDS SUMMARY | 2024-10-29 11:28 | XMS_ITS | Encounter Summary ---
Author Organization [facility] Address [address] [facility] [address] [place] [address] Phone Care Team Providers Care Garbage Truck Helper Name Role Phone Aaliyah Smith MD Primary Care Provider [phone] Sudhakar Curtis MD Unavailable [phone] Aaliyah Smith MD Primary Care Provider + [phone] Encounter Details Date Type Department Care Team (Late st Contact Info) Description 06/05/2021 Procedure Pass [facility] Admitting Dept Virtual Department [address] [place] [address] Social History Tobacco Use Types Packs/Day Years [...] Procedure Pass [facility] [address] [place] [address] 02/25/2025 2:00 PM EST Appointment [facility] [address] [place] [address] Benji Hardwick MD, MPH [address] [place] [phone] [email or web address] 02/25/2025 2:30 PM EST Appointment [facility] Pulmonary Function Lab 15 [place] [address] Benji Hardwick MD, MPH [address] [place] [phone] [email or web address] 02/25/2025 3:40 PM EST Office Visit [facility] Chest Diseases 15 [place] [address] Benji Hardwick MD, MPH [address] [place] [phone] [email or web address] 03/19/2025 9:40 AM EST Office Visit [facility] [address] [place] [address] Tanisha Rajan MD [address] [place] [address] [email or web address] documented as of this encounter Visit Diagnoses Not on filedocumented in this encounter Additional Health Concerns Assessment Noted Time PHQ-2 Depression Total Score: 0 01/12/20 21 10:23 AM EST documented as of this encounter Care Teams Garbage Truck Helper Relationship Specialty Start Date End Date Aaliyah Smith MD PCP - General Internal Medicine 01/01/18 07/10/23 Aaliyah Smith MD PCP - General Internal Medicine 11/14/23 Sudhakar Curtis MD [address] [place] [address] [email or web address] Surgery 11/3/23 documented as of this encounter Additional Source Comments The information contained in this document represents components of the legal health record. It is not the complete legal health record.[facility]
--- OUTSIDE RECORDS SUMMARY | 2024-10-29 11:28 | XMS_ITS | Encounter Summary ---
Author Organization [facility] Address [address] [place] [address] [place] [address] Phone Care Team Providers Care Road Contractor Name Role Phone Aaliyah Smith MD Primary Care Provider + [phone] Sudhakar Curtis MD Unavailable [phone] Aaliyah Smith MD Primary Care Provider + [phone] Encounter Details Date Type Department Care Team (Late st Contact Info) Description 02/23/2023 Procedure Pass [facility], Ct Scan - [address] [address] Social History Tobacco Use Types Packs/Day Years [...] st Contact Info) Description 02/20/2024 Procedure Pass [facility] Radiology [address] [place] [address] 02/25/2025 2:00 PM EST Appointment [facility] Radiology [address] [place] [address] Benji Hardwick MD, MPH [address] [phone] [email or web address] 02/25/2025 2:30 PM EST Appointment [facility] Pulmonary Function Lab 15 [place] [address] Benji Hardwick MD, MPH [address] [phone] [email or web address] 02/25/2025 3:40 PM EST Office Visit [facility] 15 [place] [address] Benji Hardwick MD, MPH [address] [place] [phone] [email or web address] 03/19/2025 9:40 AM EST Office Visit [facility] [address] [place] [address] Tanisha Rajan MD [address] [place] [phone] [email or web address] documented as of this encounter Visit Diagnoses Not on filedocumented in this encounter Additional Health Concerns Assessment Noted Time PHQ-2 Depression Total Score: 0 12/26/19 23 9:51 AM EST documented as of this encounter Care Teams Road Contractor Relationship Specialty Start Date End Date Aaliyah Smith MD PCP - General Internal Medicine 01/01/18 07/10/23 Aaliyah Smith MD PCP - General Internal Medicine 11/14/23 Sudhakar Curtis MD [address] [place] [address] [email or web address] Surgery 12/21/22 documented as of this encounter Additional Source Comments The information contained in this document represents components of the legal health record. It is not the complete legal health record.[facility]
--- OUTSIDE RECORDS SUMMARY | 2024-10-29 11:28 | XMS_ITS | Encounter Summary ---
Author Organization [facility] Address [address] [place] [phone] Phone Care Team Providers Care Bellstaff Name Role Phone Aaliyah Smith MD Primary Care Provider [phone] Sudhakar Curtis MD Unavailable [phone] Aaliyah Smith MD Primary Care Provider + [phone] Encounter Details Date Type Department Care Team (Late st Contact Info) Description 11/29/2020 Procedure Pass [address] [address] Social History Tobacco Use Types Packs/Day Years Used Date Smoking Tobacco: Former Smokeless Tobacco: Never Alcohol Use Standard Drinks/Week Comments Not Currently [...] st Contact Info) Description 02/20/2024 Procedure Pass [facility] Radiology [address] [place] [address] 02/25/2025 2:00 PM EST Appointment [facility] [place] Radiology [address] [place] [address] Benji Hardwick MD, MPH [address] [place] [phone] [email or web address] 02/25/2025 2:30 PM EST Appointment [facility] Pulmonary Function Lab 15 [place] [address] Benji Hardwick MD, MPH [address] [place] [phone] [email or web address] 02/25/2025 3:40 PM EST Office Visit [facility] 15 [place] [address] Benji Hardwick MD, MPH [address] [place] [phone] [email or web address] 03/19/2025 9:40 AM EST Office Visit [facility] [address] [place] [address] Tanisha Rajan MD [address] [place] [phone] [email or web address] documented as of this encounter Visit Diagnoses Not on filedocumented in this encounter Care Teams Bellstaff Relationship Specialty Start Date End Date Aaliyah Smith MD PCP - General Internal Medicine 01/01/18 07/10/23 Aaliyah Smith MD PCP - General Internal Medicine 11/14/23 Sudhakar Curtis MD [address] [place] [address] [email or web address] Surgery 12/21/22 documented as of this encounter Additional Source Comments The information contained in this document represents components of the legal health record. It is not the complete legal health record.[facility]
--- OUTSIDE RECORDS SUMMARY | 2024-10-29 11:29 | XMS_ITS | Encounter Summary ---
Author Organization [facility] Address [address] [place] [address] [place] [address] Phone Care Team Providers Care Log Carrier Operator Name Role Phone Aaliyah Smith MD Primary Care Provider + [phone] Sudhakar Curtis MD Unavailable [phone] Aaliyah Smith MD Primary Care Provider + [phone] Reason for Referral * MRI/CAT Scan - Closed Specialty Diagnoses / Procedures Referred By Contac t Referred To Contact Radiology Diagnoses DDD (degenerative disc disease), lumbar Lumbar radiculopathy Foraminal stenosis of lumbar region Procedures CT Lumbar Spine Edin Ibrahim PA Phone: tel: fax: Referral ID Status Reason Start Date Expiration Date Visits Re quested Visits Authorized [id number] Closed 02/23/2023 1 1 Encounter Details Date Type Department Care Team (Latest Contact Info) Description 02/23/2023 Transcribe Orders Virtual Department [address] [place] [address] Edin Ibrahim PA [address] [place] [address] DDD (degenerative disc disease), lumbar (Primary Dx); Lumbar radiculopathy; Foraminal stenosis of lumbar region Social History Tobacco Use Types Packs/Day Years [...] st Contact Info) Description 02/20/2024 Procedure Pass [facility] Radiology [address] [place] [address] 02/25/2025 2:00 PM EST Appointment [facility] Radiology [address] [place] [address] Benji Hardwick MD, MPH [address] [place] [phone] [email or web address] 02/25/2025 2:30 PM EST Appointment [facility] Pulmonary Function Lab [address] [place] [address] Benji Hardwick MD, MPH [address] [place] [address] [email or web address] 02/25/2025 3:40 PM EST Office Visit [facility] 15 [place] [address] Benji Hardwick MD, MPH [address] [place] [phone] [email or web address] 03/19/2025 9:40 AM EST Office Visit [facility] [address] [place] [address] [place] [address] Tanisha Rajan MD [address] [place] [phone] [email or web address] documented as of this encounter Results * CT LUMBAR SPINE WITHOUT CONTRAST (03/01/2023 6:08 PM EST) Anatomical Region Laterality Modality L-spine Computed Tomogra phy 03/05/2023 9:38 AM EST Impressions 03/05/2023 9:58 AM EST 1. Multilevel degenerative disc disease most advanced at L3-4 and multilevel neural foraminal narrowing as above. Severe central canal and bilateral recess stenosis at L4-5. Borderline canal stenosis at T12-L1. Narrative 03/05/2023 9:[address] LUMBAR SPINE WITHOUT CONTRAST Referring clinician's provided indication for this examination in Epic: Outside Radiology Order; DDD (degenerative disc disease), lumbar/ Lumbar radiculopathy/ Foraminal stenosis of lumbar region Surgical planning TECHNIQUE: Multidetector-row CT of the lumbar spine was performed without intravenous contrast using tailored dose modulation techniques. Images were reconstructed in the axial, coronal, and sagittal planes. COMPARISON: 02/05/2023 MR FINDINGS: LUMBAR SPINE: Alignment and Vertebrae: Mild right convex scoliotic curvature. No acute fracture. Approximate 3 mm retrolisthesis of L2 in relation to L3. No additional subluxations. Prominent Schmorl's node in the upper endplate of L4. Discs and Endplates: Stable disc space narrowing, most pronounced at L3-4, with varying amounts of stable endplate irregularity. Soft Tissue: No paraspinal soft tissue mass or gross fluid collection apparent. Other Findings: None. T11-12: No bony central canal or advanced neural foraminal stenosis. No gross disc protrusion. T12-L1: Grossly stable disc spur complex. AP dimensions of the bony canal measured at approximately 10 mm. No high-grade neural foraminal stenosis. L1-2: Stable disc spur complex. No central canal stenosis. No advanced bony neural foraminal stenosis. L2-3: Stable disc spur complex. AP dimensions of the thecal sac measures approximately 12 mm. Ligamentum flavum prominence and hypertrophic facet arthropathy. Left neural foraminal stenosis due to vertebral body endplate spurring and facet osteoarthropathy with milder narrowing present on the right. L3-4: AP dimensions of the thecal sac measured approximately 11 mm with hypertrophic facet arthropathy and ligamentum flavum prominence contributing to bilateral recess stenosis. Bilateral neural foraminal narrowing, more pronounced on the left than right, due to vertebral body endplate spurring. L4-5: Severe central canal and bilateral recess stenosis due to disc spur complex, ligamentum flavum hypertrophy, and advanced degenerative facet arthropathy with severe right and slightly milder left neural foraminal stenosis. L5-S1: Stable disc bulge without evidence of acute disc protrusion. No central canal stenosis. Bilateral neural foraminal narrowing due to advanced degenerative facet arthropathy and, on the right, vertebral body endplate spurring. Procedure Note Kody Buenrostro MD - 03/05/2023 CT LUMBAR SPINE WITHOUT CONTRAST Referring clinician's provided indication for this examination in Epic:Outside Radiology Order; DDD (degenerative disc disease), lumbar/ Lumbarradiculopathy/ Foraminal stenosis of lumbar region Surgical planning TECHNIQUE: Multidetector-row CT of the lumbar spine was performed withoutintravenous contrast using tailored dose modulation techniques. Imageswere reconstructed in the axial, coronal, and sagittal planes. COMPARISON: 02/05/2023 MR FINDINGS: LUMBAR SPINE: Alignment and Vertebrae: Mild right convex scoliotic curvature. No acutefracture. Approximate 3 mm retrolisthesis of L2 in relation to L3. Noadditional subluxations. Prominent Schmorl's node in the upper endplate ofL4. Discs and Endplates: Stable disc space narrowing, most pronounced at L3-4,with varying amounts of stable endplate irregularity. Soft Tissue: No paraspinal soft tissue mass or gross fluid collectionapparent. Other Findings: None. T11-12: No bony central canal or advanced neural foraminal stenosis. Nogross disc protrusion. T12-L1: Grossly stable disc spur complex. AP dimensions of the bony canalmeasured at approximately 10 mm. No high-grade neural foraminalstenosis. L1-2: Stable disc spur complex. No central canal stenosis. No advancedbony neural foraminal stenosis. L2-3: Stable disc spur complex. AP dimensions of the thecal sac measuresapproximately 12 mm. Ligamentum flavum prominence and hypertrophic facetarthropathy. Left neural foraminal stenosis due to vertebral body endplatespurring and facet osteoarthropathy with milder narrowing present on theright. L3-4: AP dimensions of the thecal sac measured approximately 11 mm withhypertrophic facet arthropathy and ligamentum flavum prominencecontributing to bilateral recess stenosis. Bilateral neural foraminalnarrowing, more pronounced on the left than right, due to vertebral bodyendplate spurring. L4-5: Severe central canal and bilateral recess stenosis due to disc spurcomplex, ligamentum flavum hypertrophy, and advanced degenerative facetarthropathy with severe right and slightly milder left neural foraminalstenosis. L5-S1: Stable disc bulge without evidence of acute disc protrusion. Nocentral canal stenosis. Bilateral neural foraminal narrowing due toadvanced degenerative facet arthropathy and, on the right, vertebral bodyendplate spurring. IMPRESSION: 1. Multilevel degenerative disc disease most advanced at L3-4 andmultilevel neural foraminal narrowing as above. Severe central canal andbilateral recess stenosis at L4-5. Borderline canal stenosis at T12-L1. Edin NERI IMG CT XSPECIALTY ORDERABLES F inal Result documented in this encounter Visit Diagnoses Diagnosis DDD (degenerative disc disease), lumbar- Primary Degeneration of lumbar or lumbosacral intervertebral disc Lumbar radiculopathy Thoracic or lumbosacral neuritis or radiculitis, unspecified Foraminal stenosis of lumbar region DDD (degenerative disc disease), lumbar Degeneration of lumbar or lumbosacral intervertebral disc Lumbar radiculopathy Thoracic or lumbosacral neuritis or radiculitis, unspecified Foraminal stenosis of lumbar region documented in this encounter Additional Health Concerns Assessment Noted Time PHQ-2 Depression Total Score: 0 12/26/19 23 9:51 AM EST documented as of this encounter Care Teams Log Carrier Operator Relationship Specialty Start Date End Date Aaliyah Smith MD PCP - General Internal Medicine 01/01/18 07/10/23 Aaliyah Smith MD PCP - General Internal Medicine 11/14/23 Sudhakar Curtis MD [address] [place] [phone] [email or web address] Surgery 12/21/22 documented as of this encounter Additional Source Comments The information contained in this document represents components of the legal health record. It is not the complete legal health record.[facility]
--- OUTSIDE RECORDS SUMMARY | 2024-10-29 11:29 | XMS_ITS | Encounter Summary ---
Author Organization [facility] Address [address] [facility] [address] [place] [address] Phone Care Team Providers Care Sweeper Brush Maker Machine Name Role Phone Aaliyah Smith MD Primary Care Provider + [phone] Sudhakar Curtis MD Unavailable [phone] Aaliyah Smith MD Primary Care Provider + [phone] Encounter Details Date Type Department Care Team (Late st Contact Info) Description 12/27/2020 Procedure Pass [facility] Periop [address] [place] [address] Social History Tobacco Use Types Packs/Day Years [...] st Contact Info) Description 02/20/[address] [facility] [address] [place] [address] 02/25/2025 2:00 PM EST Appointment [facility] Radiology [address] [place] [address] Benji Hardwick MD, MPH [address] [place] [phone] [email or web address] 02/25/2025 2:30 PM EST Appointment [facility] Pulmonary Function Lab [address] [place] [address] Benji Harwdick MD, MPH [address] [place] [phone] [email or web address] 02/25/2025 3:40 PM EST Office [facility] Center for Chest Diseases [address] [place] [address] Benji Hardwick MD, MPH [address] [place] [phone] [email or web address] 03/19/2025 9:40 AM EST Office Visit [facility] [address] [place] [address] Tanisha Rajan MD [address] [place] [phone] [email or web address] documented as of this encounter Visit Diagnoses Not on filedocumented in this encounter Care Teams Sweeper Brush Maker Machine Relationship Specialty Start Date End Date Aaliyah Smith MD PCP - General Internal Medicine 01/01/18 07/10/23 Aaliyah Smith MD PCP - General Internal Medicine 11/14/23 Sudhakar Curtis MD [address] [place] [address] [email or web address] Surgery 12/21/22 documented as of this encounter Additional Source Comments The information contained in this document represents components of the legal health record. It is not the complete legal health record.[facility]
--- OUTSIDE RECORDS SUMMARY | 2024-10-29 11:29 | XMS_ITS | Encounter Summary ---
Author Organization [facility] Address [address] [facility] [address] [place] [address] Phone Care Team Providers Care Ornamental Iron Worker Apprentice Name Role Phone Aaliyah Smith MD Primary Care Provider + [phone] Sudhakar Curtis MD Unavailable [phone] Aaliyah Smith MD Primary Care Provider + [phone] Encounter Details Date Type Department Care Team (Late Contact Info) Description 12/20/[address] [facility] Echocardiography [address] [place] [address] Social History Tobacco Use Types Packs/Day Years [...] Encounters Date Type Department Care Team (Late Contact Info) Description 02/20/2024 Procedure Pass [facility] Radiology [address] [place] [address] 02/25/2025 2:00 PM EST Appointment [facility] Radiology [address] [place] [address] Benji Hardwick MD, MPH [address] [place] [phone] [email or web address] 02/25/2025 2:30 PM EST Appointment [facility] Pulmonary Function Lab [address] [place] [address] Benji Hardwick MD, MPH [address] [place] [phone] [email or web address] 02/25/2025 3:40 PM EST Office Visit [facility] Center for Chest Diseases [address] [place] [address] Benji Hardwick MD, MPH [address] [place] [phone] [email or web address] 03/19/2025 9:40 AM EST Office Visit [facility] [address] [place] [address] Tanisha Rajan MD [address] [place] [address] [email or web address] documented as of this encounter Visit Diagnoses Not on filedocumented in this encounter Care Teams Ornamental Iron Worker Apprentice Relationship Specialty Start Date End Date Aaliyah Smith MD PCP - General Internal Medicine 01/01/18 07/10/23 Aaliyah Smith MD PCP - General Internal Medicine 11/14/23 Sudhakar Curtis MD [address] [place] [address] [email or web address] Surgery 12/21/22 documented as of this encounter Additional Source Comments The information contained in this document represents components of the legal health record. It is not the complete legal health record.[facility]
--- OUTSIDE RECORDS SUMMARY | 2024-10-29 11:29 | XMS_ITS | Encounter Summary ---
Author Organization [facility] Address [address] [place] [address] [place] [address] Phone Care Team Providers Care Computer Animator Name Role Phone Tanisha Rajan MD Primary Care Provider Aaliyah Smith MD Primary Care Provider Sudhakar Curtis MD Unavailable [phone] Aailyah Smith MD Primary Care Provider Encounter Details Date Type Department Care Team (Late st Contact Info) Description 06/13/2017 Ancillary Orders Virtual Department [address] [place] [address] [phone] Tanisha Rajan MD [address] [address] [email or web address] Thyroid cancer Social History Tobacco Use Types Packs/Day Years [...] Procedure Pass [facility] 75 [place] [address] 02/25/2025 2:00 PM EST Appointment [facility] [address] [place] [address] Benji Hardwick MD, MPH [address] [place] [phone] [email or web address] 02/25/2025 2:30 PM EST Appointment [facility] Pulmonary Function Lab 15 [place] [address] Benji Hardwick MD, MPH [address] [phone] [email or web address] 02/25/2025 3:40 PM EST Office Visit [facility] Center for Chest Diseases [address] [place] [address] Benji Hardwick MD, MPH [address] [place] [phone] [email or web address] 03/19/2025 9:40 AM EST Office Visit [facility] [address] [place] [address] Tanisha Rajan MD [address] [place] [address] [email or web address] documented as of this encounter Results * US Thyroid Gland (06/17/2017 2:08 PM EDT) Anatomical Region Laterality Modality Neck, Head, Chest Ultrasound 06/17/2017 3:24 PM EDT Impressions 06/17/2017 3:30 PM EDT No worrisome adenopathy has developed in either side of the neck POS [id number] Narrative 06/17/2017 3:30 PM EDT Compare 03/22/2016 FINDINGS: No residual/recurrent thyroid tissue. Only 2 nodes can be identified in the RIGHT side of the neck: Lateral submental 6 x 9 x 9 mm, with prominent fatty hilum. Medial mid 3 x 5 x 8 mm, homogeneously hypoechoic. In the submental MIDLINE there is a single 4 x 7 x 10 mm node with prominent fatty hilum. 3 nodes can be identified in the medial LEFT neck: Upper 4 x 13 x 15 mm, with prominent fatty hilum Upper 3 x 7 x 13 mm with moderate fatty hilum. Mid to upper 3 x 7 x 12 mm, homogeneously hypoechoic Procedure Note Agustin Paris MD - 06/17/2017 Compare 03/22/2016 FINDINGS: No residual/recurrent thyroid tissue. Only 2 nodes can be identified in the RIGHT side of the neck: Lateral submental 6 x 9 x 9 mm, with prominent fatty hilum. Medial mid 3 x 5 x 8 mm, homogeneously hypoechoic. In the submental MIDLINE there is a single 4 x 7 x 10 mm node withprominent fatty hilum. 3 nodes can be identified in the medial LEFT neck: Upper 4 x 13 x 15 mm, with prominent fatty hilum Upper 3 x 7 x 13 mm with moderate fatty hilum. Mid to upper 3 x 7 x 12 mm, homogeneously hypoechoic IMPRESSION: No worrisome adenopathy has developed in either side of the neck POS [id number] Tanisha Rajan MD [facility] [place] THYROID Final Result documented in this encounter Visit Diagnoses Diagnosis Thyroid cancer Malignant neoplasm of thyroid gland Thyroid cancer Malignant neoplasm of thyroid gland documented in this encounter Additional Health Concerns Infection Onset Date Last Indicated Resolved Time CoV-Risk 11/02/2020 11/02/2020 11/12/2020 1:23 AM EDT documented as of this encounter Care Teams Computer Animator Relationship Specialty Start Date End Date Tanisha Rajan MD [address] [address] PCP - General Endocrinology 06/13/17 12/31/17 Aaliyah Smith MD [address] [address] PCP - General Internal Medicine 01/01/18 07/10/23 Aaliyah Smith MD [address] [place] [address] PCP - General Internal Medicine 11/14/23 Sudhakar Curtis MD [address] [place] [address] [email or web address] Surgery 12/21/22 documented as of this encounter Additional Source Comments The information contained in this document represents components of the legal health record. It is not the complete legal health record.[facility]
--- OUTSIDE RECORDS SUMMARY | 2024-10-29 11:29 | XMS_ITS | Encounter Summary ---
Author Organization [facility] Address [address] [place] [address] [place] [address] Phone Care Team Providers Care Jet Dyeing Machine Operator Name Role Phone Tanisha Rajan MD Primary Care Provider Aaliyah Smith MD Primary Care Provider [phone] Sudhakar Curtis MD Unavailable [phone] Aaliyah Smith MD Primary Care Provider [phone] Encounter Details Date Type Department Care Team (Late st Contact Info) Description 06/17/2017 Transcribe Orders [facility] Laboratory [address] [place] [address] Tanisha Rajan MD [address] [place] [address] [email or web address] Hypothyroidism following radioiodine therapy (Primary Dx); Malignant neoplasm of thyroid gland Social History Tobacco Use Types Packs/Day Years [...] Procedure Pass [facility] [address] [place] [address] 02/25/2025 2:00 PM EST Appointment [facility] [address] [place] [address] Benji Hardwick MD, MPH [address] [place] [phone] [email or web address] 02/25/2025 2:30 PM EST Appointment [facility] Pulmonary Function Lab 15 [place] [address] Benji Hardwick MD, MPH [address] [place] [phone] [email or web address] 02/25/2025 3:40 PM EST Office Visit [facility] Center for Chest Diseases [address] [place] [address] Benji Hardwick MD, MPH [address] [place] [phone] [email or web address] 03/19/2025 9:40 AM EST Office Visit [facility] [address] [place] [address] Tanisha Rajan MD [address] [address] [email or web address] documented as of this encounter Results * Thyroglobulin antibodies (06/17/2017 1:31 PM EDT) THYROGLOBULIN ANTIBODY, S <1.8 <4.0 IU/mL [facility] Comment: (NOTE) ADDITIONAL INFORMATION The thyroglobulin antibody testing method is an immunoenzymatic assay manufactured by [employer] and performed on the [employer]io DXI 800. Values obtained from different assay methods or kits may be different and cannot be used interchangeably. The results cannot be interpreted as absolute evidence for the presence or absence of malignant disease. Blood 06/17/2017 1:31 PM EDT 06/17/2017 1:32 PM EDT us Tanisha Rajan MD LAB BLOOD ORDERABLES F inal Result [facility] [address] [place] [address] * (ABNORMAL) Thyroglobulin, Tumor Marker (06/17/2017 1:31 PM EDT) THYROGLOBULIN 3.1(H) ng/mL [facility] Comment: (NOTE) REFERENCE VALUE Athyrotic <0.1 Intact Thyroid <=33 THYROGLOBULIN AB <1.8 <4.0 IU/mL [facility] THYROGLOBULIN INTRP SEE NOTE [facility] Comment: (NOTE) Thyroglobulin (Tg) levels must be interpreted in the context of TSH levels, serial Tg measurements and radioiodine ablation status. Tg levels of 2.1-9.9 ng/mL in athyrotic individuals on suppressive therapy indicate an increased risk of clinically detectable recurrent papillary/follicular thyroid cancer. ADDITIONAL INFORMATION PLEASE NOTE: Thyroglobulin flagging is based on athyrotic reference values. The thyroglobulin and thyroglobulin antibody testing methods are immunoenzymatic assays manufactured by [employer] and performed on the [employer]io DXI 800. Values obtained from different assay methods or kits may be different and cannot be used interchangeably. The results cannot be interpreted as absolute evidence for the presence or absence of malignant disease. Blood 06/17/2017 1:31 PM EDT 06/17/2017 1:32 PM EDT Tanisha Rajan MD LAB BLOOD ORDERABLES F inal Result [facility] [address] [place] [address] * (ABNORMAL) TSH with reflex (06/17/2017 1:31 PM EDT) TSH 0.09(L) 0.27 - 4.20 uIU/mL [facility] Blood 06/17/2017 1:31 PM EDT 06/17/2017 1:33 PM EDT Tanisha Rajan MD LAB BLOOD ORDERABLES F inal Result Performing Organization Address City/[facility] Co de Phone Number [facility] [address] [place] [address] documented in this encounter Visit Diagnoses Diagnosis Hypothyroidism following radioiodine therapy- Primary Other postablative hypothyroidism Malignant neoplasm of thyroid gland documented in this encounter Additional Health Concerns Infection Onset Date Last Indicated Resolved Time CoV-Risk 11/02/2020 11/02/2020 11/12/2020 1:23 AM EDT documented as of this encounter Care Teams Jet Dyeing Machine Operator Relationship Specialty Start Date End Date Tanisha Rajan MD [address] [address] PCP - General Endocrinology 06/13/17 12/31/17 Aaliyah Smith MD [address] [address] PCP - General Internal Medicine 01/01/18 07/10/23 Aaliyah Smith MD [address] [address] PCP - General Internal Medicine 11/14/23 Sudhakar Curtis MD [address] [place] [address] [email or web address] Orthopedic Surgery 12/21/22 documented as of this encounter Additional Source Comments The information contained in this document represents components of the legal health record. It is not the complete legal health record.[facility]
--- OUTSIDE RECORDS SUMMARY | 2024-10-29 11:29 | XMS_ITS | Encounter Summary ---
Author Organization [facility] Address [address] [facility] [address] [place] [address] Phone Care Team Providers Care College Basketball Coach Name Role Phone Aaliyah Smith MD Primary Care Provider [phone] Sudhakar Crutis MD Unavailable [phone] Aaliyah Smith MD Primary Care Provider [phone] Encounter Details Date Type Department Care Team (Late st Contact Info) Description 10/17/2020 Procedure Pass [address] [place] [address] Social History Tobacco Use Types Packs/Day Years Used Date Smoking Tobacco: Former Smokeless Tobacco: Never Sex and Gender Information Value Date Recorded Sex Assigned at Not on file Legal Sex Male 10:06 PM EDT Gender Identity Not on file Sexual Orientation Not on file documented as of this encounter Plan of Treatment Upcoming Encounters Date Type Department Care Team (Late st Contact Info) Description 02/20/2024 Procedure Pass [facility] [address] [place] [address] 02/25/2025 2:00 PM EST Appointment [facility] [address] [place] [address] Benji Hardwick MD, MPH [address] [place] [address] [email or web address] 02/25/2025 2:30 PM EST Appointment [facility] Pulmonary Function Lab [address] [place] [address] [place] [address] Benji Hardwick MD, MPH [address] [place] [phone] [email or web address] 02/25/2025 3:40 PM EST Office Visit [facility] Center for Chest Diseases [address] [place] [address] Benji Hardwick MD, MPH [address] [place] [phone] [email or web address] 03/19/2025 9:40 AM EST Office Visit [facility] [address] [place] [address] Tanisha Rajan MD [address] [place] [phone] [email or web address] documented as of this encounter Visit Diagnoses Not on filedocumented in this encounter Additional Health Concerns Infection Onset Date Last Indicated Resolved Time CoV-Risk 11/02/2020 11/02/2020 11/12/2020 1:23 AM EDT documented as of this encounter Care Teams College Basketball Coach Relationship Specialty Start Date End Date Aaliyah Smith MD PCP - General Internal Medicine 01/01/18 07/10/23 Aaliyah Smith MD PCP - General Internal Medicine 11/14/23 Sudhakar Curtis MD [address] [place] [phone] [email or web address] Orthopedic Surgery 12/21/22 documented as of this encounter Additional Source Comments The information contained in this document represents components of the legal health record. It is not the complete legal health record.[facility]
--- OUTSIDE RECORDS SUMMARY | 2024-10-29 11:29 | XMS_ITS | Encounter Summary ---
Author Organization [facility] Address [address] [facility] [address] [place] [address] Phone Care Team Providers Care Auto Body Repair Estimator Name Role Phone Aaliyah Smith MD Primary Care Provider Sudhakar Curtis MD Unavailable [phone] Aaliyah Smith MD Primary Care Provider Encounter Details Date Type Department Care Team (Late st Contact Info) Description 01/24/2021 Transcribe Orders Virtual Department [address] [place] [address] Aaliyah Smith MD [address] [place] [phone] Chest wall mass (Primary Dx) Social History Tobacco Use Types [...] 02/20/2024 Procedure Pass [facility] [address] [place] [address] 02/25/2025 2:00 PM EST Appointment [facility] [address] [place] [address] Benji Hardwick MD, MPH [address] [place] [phone] [email or web address] 02/25/2025 2:[address] [facility] Pulmonary Function Lab [address] [place] [address] Benji Hardwick MD, MPH [address] [address] [email or web address] 02/25/2025 3:40 PM EST Office Visit [facility] Center for Chest Diseases [address] [place] [address] Benji Hardwick MD, MPH [address] [place] [phone] [email or web address] 03/19/2025 9:40 AM EST Office Visit [facility] [address] [place] [address] Tanisha Rajan MD [address] [place] [phone] documented as of this encounter Results * US Chest Wall (01/25/2021 3:50 PM EST) Anatomical Region Laterality Modality Chest Ultrasound 01/25/2021 3:56 PM EST Impressions 01/25/2021 3:57 PM EST Findings most consistent with sebaceous cyst. Narrative 01/25/2021 3:57 PM EST Ultrasonic examination is performed the region of a palpable abnormalities in the midline of the chest. Corresponding to this is a hypoechoic, parallel mass measuring 9 x 6 x 9 mm. There is some faint through transmission centrally. There is suggestion of a small tail into the dermis. This likely reflects a sebaceous cyst. Procedure Note Baljeet Rosa MD - 01/25/2021 Ultrasonic examination is performed the region of a palpable abnormalitiesin the midline of the chest. Corresponding to this is a hypoechoic,parallel mass measuring 9 x 6 x 9 mm. There is some faint throughtransmission centrally. There is suggestion of a small tail into thedermis. This likely reflects a sebaceous cyst. IMPRESSION: Findings most consistent with sebaceous cyst. Aaliyah Smith MD [facility] [place] CHEST Final Result documented in this encounter Visit Diagnoses Diagnosis Chest wall mass- Primary Swelling, mass, or lump in chest Chest wall mass Swelling, mass, or lump in chest documented in this encounter Additional Health Concerns Assessment Noted Time PHQ-2 Depression Total Score: 0 01/12/20 21 10:23 AM EST documented as of this encounter Care Teams Auto Body Repair Estimator Relationship Specialty Start Date End Date Aaliyah Smith MD PCP - General Internal Medicine 01/01/18 07/10/23 Aaliyah Smith MD PCP - General Internal Medicine 11/14/23 Sudhakar Curtis MD [address] [place] [phone] [email or web address] Orthopedic Surgery 12/21/22 documented as of this encounter Additional Source Comments The information contained in this document represents components of the legal health record. It is not the complete legal health record.[facility]
--- OUTSIDE RECORDS SUMMARY | 2024-10-29 11:29 | XMS_ITS | Encounter Summary ---
Author Organization [facility] Address [address] [place] [address] [place] [address] Phone Care Team Providers Care Morgue Keeper Name Role Phone Aaliyah Smith MD Primary Care Provider [phone] Sudhakar Curtis MD Unavailable [phone] Aaliyah Smith MD Primary Care Provider [phone] Encounter Details Date Type Department Care Team (Late st Contact Info) Description 12/18/2022 Procedure Pass [facility], [address] [address] Social History Tobacco Use Types Packs/Day Years [...] st Contact Info) Description 02/20/2024 Procedure Pass [facility] Radiology [address] [place] [address] 02/25/2025 2:00 PM EST Appointment [facility] Radiology [address] [place] [address] Benji Hardwick MD, MPH [address] [address] [email or web address] 02/25/2025 2:30 PM EST Appointment [facility] Pulmonary Function Lab 15 [place] [address] Benji Hardwick MD, MPH [address] [address] [email or web address] 02/25/2025 3:40 PM EST Office Visit [facility] Center for Chest Diseases 15 [place] [address] Benji Hardwick MD, MPH [address] [place] [phone] [email or web address] 03/19/2025 9:40 AM EST Office Visit [facility] [address] [place] [address] Tanisha Rajan MD [address] [place] [address] [email or web address] documented as of this encounter Visit Diagnoses Not on filedocumented in this encounter Additional Health Concerns Assessment Noted Time PHQ-2 Depression Total Score: 0 12/26/19 23 9:51 AM EST documented as of this encounter Care Teams Morgue Keeper Relationship Specialty Start Date End Date Aaliyah Smith MD PCP - General Internal Medicine 01/01/18 07/10/23 Aaliyah Smith MD PCP - General Internal Medicine 11/14/23 Sudhakar Curtis MD [address] [place] [address] [email or web address] Surgery 12/21/22 documented as of this encounter Additional Source Comments The information contained in this document represents components of the legal health record. It is not the complete legal health record.[facility]
--- OUTSIDE RECORDS SUMMARY | 2024-10-29 11:29 | XMS_ITS | Encounter Summary ---
Author Organization [facility] Address [address] [facility] [address] [place] [address] Phone Care Team Providers Care Pediatric Assistant Name Role Phone Tanisha Rajan MD Primary Care Provider Aaliyah Smith MD Primary Care Provider Sudhakar Curtis MD Unavailable [phone] Aaliyah Smith MD Primary Care Provider Encounter Details Date Type Department Care Team (Late st Contact Info) Description 11/29/2017 Ancillary Orders Virtual Department [address] [place] [address] [phone] Tanisha Rajan MD [address] [address] [email or web address] Thyroid cancer Social History Tobacco Use [...] Procedure Pass [facility] [address] [place] [address] 02/25/2025 2:00 PM EST Appointment [facility] [address] [place] [address] Benji Hardwick MD, MPH [address] [place] [phone] [email or web address] 02/25/2025 2:30 PM EST Appointment [facility] Pulmonary Function Lab [address] [place] [address] Benji Hardwick MD, MPH [address] [address] [email or web address] 02/25/2025 3:40 PM EST Office Visit [facility] Center for Chest Diseases [address] [place] [address] Benji Hardwick MD, MPH [address] [place] [phone] [email or web address] 03/19/2025 9:40 AM EST Office Visit [facility] [address] [place] [address] Tanisha Rajan MD [address] [place] [address] [email or web address] documented as of this encounter Results * US Soft Tissues of Head and Neck (Non-Thyroid) (2018 1:27 PM EST) Anatomical Region Laterality Modality Neck, Head Ultrasound 2018 3:42 PM EST Impressions 2018 3:47 PM EST Multiple benign-appearing nodes bilaterally. No findings suspicious for metastatic disease. POS [id number] Narrative 2018 3:47 PM EST Numerous comparisons, most recent the 06/17/2017. No recurrent soft tissue in the thyroid bed. 4 x 9 x 10 mm node with large fatty hilum in the midline just below the chin unchanged. RIGHT: High, lateral 6 x 8 x 8 mm node with obvious fatty hilum unchanged. Medial mid to upper 3 x 6 x 10 mm circumscribed node with large fatty hilum unchanged. LEFT: High, lateral 4 x 8 x 11 mm new since previous but large fatty hilum. Medial mid to upper 4 x 6 x 11 mm with fatty hilum unchanged. Mid 3 x 5 x 11 mm with large fatty hilum unchanged. Mid 4 x 5 x 11 mm with prominent fatty hilum questionably new but not worrisome. No suspicious adenopathy. Procedure Note Agustin Paris MD - 2018 Numerous comparisons, most recent the 06/17/2017. No recurrent soft tissue in the thyroid bed. 4 x 9 x 10 mm node with large fatty hilum in the midline just below thechin unchanged. RIGHT: High, lateral 6 x 8 x 8 mm node with obvious fatty hilum unchanged. Medial mid to upper 3 x 6 x 10 mm circumscribed node with large fattyhilum unchanged. LEFT: High, lateral 4 x 8 x 11 mm new since previous but large fatty hilum. Medial mid to upper 4 x 6 x 11 mm with fatty hilum unchanged. Mid 3 x 5 x 11 mm with large fatty hilum unchanged. Mid 4 x 5 x 11 mm with prominent fatty hilum questionably new but notworrisome. No suspicious adenopathy. IMPRESSION: Multiple benign-appearing nodes bilaterally. No findings suspicious formetastatic disease. POS [id number] Tanisha Rajan MD IMG US HEAD/NECK NON T HYROID Final Result documented in this encounter Visit Diagnoses Diagnosis Thyroid cancer Malignant neoplasm of thyroid gland Thyroid cancer Malignant neoplasm of thyroid gland documented in this encounter Additional Health Concerns Infection Onset Date Last Indicated Resolved Time CoV-Risk 11/02/2020 11/02/2020 11/12/2020 1:23 AM EDT documented as of this encounter Care Teams Pediatric Assistant Relationship Specialty Start Date End Date Tanisha Rajan MD [address] [place] [address] [email or web address] PCP - General Endocrinology 06/13/17 12/31/17 Aaliyah Smith MD [address] [place] [address] PCP - General Internal Medicine 01/01/18 07/10/23 Aaliyah Smith MD [address] [place] [address] PCP - General Internal Medicine 11/14/23 Sudhakar Curtis MD [address] [place] [phone] [email or web address] Surgery 12/21/22 documented as of this encounter Additional Source Comments The information contained in this document represents components of the legal health record. It is not the complete legal health record.[facility]
--- OUTSIDE RECORDS SUMMARY | 2024-10-29 11:29 | XMS_ITS | Clinical Summary ---
Author Organization [facility] Address [address] [facility] [address] [place] [address] Phone Care Team Providers Care Beverage Inspection Machine Tender Name Role Phone Sudhakar Curtis MD Unavailable [phone] Aaliyah Smith MD Primary Care Provider Allergies No known active allergies Medications atorvastatin (LIPITOR) 20 MG tabletIndications: Hyperlipidemia, unspecified hyperlipidemia type Take 1 tablet (20 mg total) by mouth daily. 90 tablet 1 3 Active albuterol 90 mcg/actuation inhaler Inhale 2 puffs into the lungs every 6 (six) hours as needed for shortness of breath/dyspne a. 8 g 11 5 Active tiotropium-olodate roL (STIOLTO RESPIMAT) 2.5-2.5 mcg/actuation inhaler Inhale 2 puffs into the lungs daily. 12 g 3 5 Active furosemide (LASIX) 20 MG tablet TAKE 1-2 TABLETS BY MOUTH DAILY NEEDED FOR LOWER EXTREMITY SWELLING 5 Active levothyroxine (SYNTHROID, LEVOTHROID) 200 MCG tabletIndications: Postoperative hypothyroidism 1 tab, orally daily, take an extra tab 2 days/month 96 tablet 3 5 Active Active Problems Patient Care Coordination No te Formatting of this note migh t be different from the original. 07/13/2021 A message has been left for the patient to contact [facility] that could possibly provide co-payment assistance for the Isma Almaguer ([phone]). Liset Menard RPSGT Problem Noted Date Diagnosed Date Hypocalcemia 08/13/2024 Assessment & Plan (08/13/2024 5:51 PM EDT): Possible pseudogout seen on imaging [place] [facility]. No evidence of hypercalcemia/primary hyperparathyroidism. Calcium has been low normal (? Related to decrease in parathyroid reserve following surgery). Will check calcium labs prior to follow up. Impaired fasting glucose 06/20/2022 023 Atrial fibrillation 06/20/2022 06/20/2022 Postoperative hypothyroidism 06/20/2022 Assessment & Plan (08/13/2024 5:49 PM EDT): TSH is suppressed which is target given CA. Will continue current rx. Will repeat labs in 6 months. Call with symptoms concerning for thyroid levels being off (unexplained change in energy, weight, or bowels or feeling too cold or too warm) or more than 10-15 pound change in weight. Assessment & Plan (01/10/2024 10:07 AM EST): Will continue current rx. Will repeat labs in 6 months. Call with symptoms concerning for thyroid levels being off (unexplained change in energy, weight, or bowels or feeling too cold or too warm) or more than 10-15 pound change in weight. Assessment & Plan (07/11/2023 9:49 AM EDT): Will continue current rx. Will repeat labs in 6 months. Call with symptoms concerning for thyroid levels being off (unexplained change in energy, weight, or bowels or feeling too cold or too warm) or more than 10-15 pound change in weight. Assessment & Plan (12/21/2022 9:52 AM EDT): Will check TFTs today & adjust rx as appropriate to maintain a suppressed TSH. Assessment & Plan (06/20/2022 2:16 PM EDT): Reports good consistency taking rx appropriately. Weight is stable. Will check levels today & adjust as needed. Target TSH given residual/progressive disease is < 0.10. 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 Prior to MCGINNIS, TSH 86, TG 4. Was given 100 mCi I-131, uptake in thyroid bed only, persistent low level TG (0.2-0.3 0656-9530, 0.7-0.8 2377-4780, 1.2-1.4 3947-0644, 1.8-3.1 0549-2756, 3.9-5.4 5834-9532, 7.2- 9.7 6564-9856), increasing gradually 10 in June 2022; Fall 2022: TG to 43 - TBS negative, PET negative, Neck u/s negative 06/2023 & Tg 12 (from 10 06/2022). TG 16 12/2023 Assessment & Plan (08/13/2024 5:49 PM EDT): 79 y.o. man w/ papillary thyroid CA. 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 Prior to MCGINNIS, TSH 86, TG 4. Was given 100 mCi I-131, uptake in thyroid bed only. Following rx, persistent low level TG (0.2-0.3 0008-7896, 0.7-0.8 2010- 2012, 1.2-1.4 1980-4635, 1.8-3.1 3914-0708, 3.9-5.4 , 7.2-9.7 ), increasing gradually to 10 in June 2022. TBS after thyrogen in 2022 was without evidence of iodine-avid disease w/ TG 43. PET scan was likewise unrevealing. TG continues to slowly increase, up to 16 12/2023, down to 13 on recent labs. Neck ultrasound continues to be unrevealing. Would assume it is most likely that he will continue to have slowly progressive disease that is unlikely to become clinically significant in his lifetime. Will continue with thyroid hormone suppression at tolerated & will monitor labs q6 months & ultrasound yearly if no/minimal progression. Assessment & Plan (01/10/2024 10:06 AM EST): 79 y.o. man w/ papillary thyroid CA. 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 Prior to MCGINNIS, SH 86, TG 4. Was given 100 mCi I-131, uptake in thyroid bed only. Following rx, persistent low level TG (0.2-0.3 0097-9960, 0.7-0.8 2010- 2012, 1.2-1.4 8402-1681, 1.8-3.1 0457-7960, 3.9-5.4 , 7.2-9.7 ), increasing gradually to 10 in June 2022. TBS after thyrogen in 2022 was without evidence of iodine-avid disease w/ TG 43. PET scan was likewise unrevealing. TG continues to slowly increase. Neck ultrasound continues to be unrevealing, last in June. Would assume it is most likely that he will continue to have slowly progressive disease that is unlikely to become clinically significant in his lifetime. Will continue with thyroid hormone suppression & will monitor labs q6 months. Will repeat ultrasound prior to follow up. Assessment & Plan (07/11/2023 9:49 AM EDT): 77 y.o. man w/ papillary thyroid CA. 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 Prior to MCGINNIS, SH 86, TG 4. Was given 100 mCi I-131, uptake in thyroid bed only. Following rx, persistent low level TG (0.2-0.3 3134-6226, 0.7-0.8 2010- 2012, 1.2-1.4 3941-6860, 1.8-3.1 0474-0338, 3.9-5.4 , 7.2-9.7 ), increasing gradually to 10 in June 2022. TBS after thyrogen in 2022 was without evidence of iodine-avid disease w/ TG 43. PET scan was likewise unrevealing. TG has increased from 10 to 12 in the last year. Neck ultrasound continues to be unrevealing. Would assume it is most likely that he will continue to have slowly progressive disease that is unlikely to become clinically significant in his lifetime. Will continue with thyroid hormone suppression & will monitor labs q6 months. Assessment & Plan (12/21/2022 10:03 AM EDT): 77 y.o. man w/ papillary thyroid CA. 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 Prior to MCGINNIS, SH 86, TG 4. Was given 100 mCi I-131, uptake in thyroid bed only. Following rx, persistent low level TG (0.2-0.3 6958-3930, 0.7-0.8 2010- 2012, 1.2-1.4 5362-3404, 1.8-3.1 8521-6918, 3.9-5.4 , 7.2-9.7 ), increasing gradually to 10 in June 2022. Neck ultrasound has been unrevealing, last done 08/2021. Recent TBS was without evidence of residual or recurrent iodine- avid disease, TG increased to 40 after thyrogen. PET scan is scheduled for mid- December. Discussed that this likely still represents a fairly low burden of disease & depending on results of further imaging we can determine whether to continue close monitoring vs consider rx (e.g. empiric MCGINNIS to see if it would take up iodine with a higher dose, surgery if there is structural disease amenable to surgery vs consideration for XRT/chemo rx if there is sufficient dz present that is not amenable to surgery/or likely to respond to MCGINNIS). Depending on findings, it may be reasonable to have him proceed w/ surgery for spinal stenosis in the short term given the relatively small burden of disease/gradual progression. I will be in contact with him with results of PET scan. Assessment & Plan (06/20/2022 2:24 PM EDT): 77 y.o. man, who is > 15 yr s/p total thyroidectomy & neck dissection for papillary CA of thyroid w/ significant extrathyroidal disease bilaterally, invading trachea & esophagus. He has had a persistent increase in thyroglobulin level with negative neck ultrasound. Last thyroglobulin 9.7 in February. Plan is to repeat thyrogen- stimulated total body scan and if that is unrevealing for residual disease do a PET scan. Will work on getting approval for thyrogen. Will repeat labs today. To call if hasn't heard from us with results within 1-2 weeks. Hearing loss 09/18/1967 06/20/2022 Encounters Date Type Department Care Team Description 08/13/2024 9:40 AM EDT Office Visit [facility] [address] [place] [address] [place] [address] Tanisha Rajan MD Malignant neoplasm of thyroid gland (Primary Dx); Postoperative hypothyroidism; Hypocalcemia from Last 3 Months Immunizations Immunization Administration Dates Next Due Pneumococcal polysaccharide PPSV23 01/11/2021 Social History Tobacco Use Types Packs/Day Years Used Date Smoking Tobacco: Former Passive Smoke Exposure: Past Smokeless Tobacco: Never Tobacco Cessation:Counseling Given: Not Answered Comments:Quit over 50 years ago Alcohol Use [...] on file Sexual Orientation Not on file Last Filed Vital Signs Vital Sign Reading Time Taken Comments Blood Pressure 140/70 08/13/2024 9:33 AM EDT Pulse 74 08/13/2024 9:33 AM EDT Temperature 37.1 C (98.8 F) 02/20/2024 4:02 PM EST Respiratory Rate 16 02/20/2024 4:02 PM EST Oxygen Saturation 97% 08/13/2024 9:33 AM EDT Inhaled Oxygen Concentration - - Weight 108.5 kg (239 lb 3.2 oz) 08/13/2024 9:33 AM EDT Height 190.5 cm (6' 3 ) 02/20/2024 4:02 PM EST Body Mass Index 29.9 02/20/2024 4:02 PM EST Plan of Treatment Upcoming Encounters Date Type Department Care Team (Late st Contact Info) Description 02/20/2024 Procedure Pass [facility] Rad[facility] [address] [place] [address] 02/25/2025 2:00 PM EST Appointment [facility] Radiology [address] [place] [address] Benji Hardwick MD, MPH [address] [address] [email or web address] 02/25/2025 2:[address] [facility] Pulmonary Function Lab [address] [place] [address] Benji Hardwick MD, MPH [address] [place] [phone] [email or web address] 02/25/2025 3:40 PM EST Office Visit [facility] Center for Chest Diseases [address] [place] [address] Benji Hardwick MD, MPH [address] [address] [email or web address] 03/19/2025 9:40 AM EST Office Visit [facility] [address] [place] [address] Tanisha Rajan MD [address] [address] [email or web address] Health Maintenance Due Date Last Done Comments SMOKING Hx and SMOKELESS TOBACCO SCREENING 01/02/1960 HEPATITIS C SCREENING 1965 RSV VACCINE (1 - 1-dose 75+ series) 2022 Adult Td,Tdap Booster 05/08/2023 05/07/2013, 014 LIPID PANEL 10/10/2023 10/09/2018 INFLUENZA VACCINE (#1) 2024 12/11/2013 COVID-19 VACCINE ( season) 2024 05/11/2020, 04/13/2020 DEPRESSION SCREENING 02/19/2025 02/20/2024 TSH LEVEL 07/10/2025 07/10/2024, 11/08/2023, 07/02/2023, Additional history exists ZOSTER VACCINES Completed 08/05/2019, 03/21, 07/17/2018, Additional history exists PNEUMOCOCCAL VACCINES (50+ years) Completed 01/11/2021, 02/06/2018, 12/16/2015, Additional history exists HEPATITIS A VACCINES Aged Out No long er eligible based on patient's age to complete this topic HIB VACCINES Aged Out No longer eligi ble based on patient's age to complete this topic MENINGOCOCCAL VACCINES (ACWY) Aged Out No longer eligible based on patient's age to complete this topic MENINGOCOCCAL VACCINES (B) Aged Out N o longer eligible based on patient's age to complete this topic Medical Devices Implanted Type Area Manuscript Reader Device Identifier Shelf Expiration Date Model / Serial / Lot Screw Screw Right: Foot Right Foot Screw Bilateral Shoulder Procedures Procedure Name Priority Date/Time Associated Diagnosis Comments TSH WITH REFLEX Routine 07/10/2024 12:10 PM EDT Postoperative hypothyroidism from Last 3 Months or Most Recently Relevant to Health Maintenance Results * (ABNORMAL) TSH with reflex (07/10/2024 12:10 PM EDT) TSH 0.06(L) 0.27 - 4.20 uIU/mL [facility] Blood 07/10/2024 12:1 0 PM EDT 07/10/2024 12:15 PM EDT Tanisha Rajan MD LAB BLOOD ORDERABLES F inal Result [facility] [address] [place] [address] from Last 3 Months or Most Recently Relevant to Health Maintenance Insurance MEDICARE PART A & B Member Subscriber Plan / Payer (Ef fective 2008-Present) Name:Evert Clemons Member ID:[id number] Relation to Subscriber:Self Name:Evert Clemons Subscriber ID:[id number] Payer ID:[id number] Group ID:Not on file Type:Medicare Address: [facility] [address] [place] [address] [facility] MEDEX SUPPLEMENT Member Subscriber Plan / Payer (Ef fective 2008-Present) Name:Evert Clemons Relation to Subscriber:Self Name:Evert Clemons Payer ID:[id number] (NAIC) Type:Indemnity Address: [facility] [id number] MEDICARE PART A & B Member Subscriber Plan / Payer (Ef fective 2008-Present) Name:Evert Clemons Member ID:[id number] Relation to Subscriber:Self Name:Evert Clemons Subscriber ID:[id number] Payer ID:[id number] Group ID:Not on file Type:Medicare Address: [facility] [address] [place] [address] [place] [address] [employer] [address] [place] [place] [address] Member Subscriber Plan / Payer (Ef fective 2020-Present) Name:Evert Clemons Relation to Subscriber:Self Name:Evert Clemons Payer ID:[id number] (NAIC) Group ID:Not on file Type:Indemnity Address: [facility] [employer] [address] [place] [id number] MEDICARE PART A & B [facility] MEDEX SUPPLEMENT [facility] MEDICARE PART A & B [employer] MEDEX SUPPLEMENT [facility] MEDICARE PART A & B [employer] MEDEX SUPPLEMENT MEDICARE PART A & B [employer] MEDEX SUPPLEMENT [facility] MEDICARE PART A & B [facility] MEDEX SUPPLEMENT MEDICARE PART A & B [employer] MEDEX SUPPLEMENT [facility] MEDICARE PART A & B [employer] MEDEX SUPPLEMENT [facility] Care Teams Beverage Inspection Machine Tender Relationship Specialty Start Date End Date Aaliyah Smith MD [address] [place] [address] PCP - General Internal Medicine 11/14/23 Sudhakar Curtis MD [address] [place] [phone] [email or web address] Surgery 12/21/22 Additional Source Comments The information contained in this document represents components of the legal health record. It is not the complete legal health record.[facility]
--- OUTSIDE RECORDS SUMMARY | 2024-10-29 11:29 | XMS_ITS | Encounter Summary ---
Author Organization [facility] Address [address] [facility] [address] [place] [address] Phone Care Team Providers Care Nursery Rn Name Role Phone Aaliyah Smith MD Primary Care Provider [phone] Sudhakar Curtis MD Unavailable [phone] Aaliyah Smith MD Primary Care Provider [phone] Encounter Details Date Type Department Care Team (Late st Contact Info) Description 10/17/2020 Procedure Pass [address] [place] [phone] Social History Tobacco Use Types Packs/Day Years [...] st Contact Info) Description 02/20/2024 Procedure Pass [facility] [address] [place] [address] 02/25/2025 2:00 PM EST Appointment [facility] [address] [place] [address] Benji Hardwick MD, MPH [address] [place] [phone] [email or web address] 02/25/2025 2:30 PM EST Appointment [facility] Pulmonary Function Lab [address] [place] [address] [place] [address] Benji Hardwick MD, MPH [address] [place] [phone] [email or web address] 02/25/2025 3:40 PM EST Office Visit [facility] Center for Chest Diseases [address] [place] [address] Benji Hardwick MD, MPH [address] [place] [phone] [email or web address] 03/19/2025 9:40 AM EST Office Visit [facility] [address] [place] [address] Tanisha Rajan MD [address] [place] [address] [email or web address] documented as of this encounter Visit Diagnoses Not on filedocumented in this encounter Additional Health Concerns Infection Onset Date Last Indicated Resolved Time CoV-Risk 11/02/2020 11/02/2020 11/12/2020 1:23 AM EDT documented as of this encounter Care Teams Nursery Rn Relationship Specialty Start Date End Date Aaliyah Smith MD PCP - General Internal Medicine 01/01/18 07/10/23 Aaliyah Smith MD PCP - General Internal Medicine 11/14/23 Sudhakar Curtis MD [address] [place] [address] [email or web address] Surgery 12/21/22 documented as of this encounter Additional Source Comments The information contained in this document represents components of the legal health record. It is not the complete legal health record.[facility]
--- OUTSIDE RECORDS SUMMARY | 2024-10-29 11:29 | XMS_ITS | Encounter Summary ---
Author Organization [facility] Address [address] [place] [address] Phone Care Team Providers Care Core Carrier Name Role Phone Aaliyah Smith MD Primary Care Provider [phone] Sudhakar Curtis MD Unavailable [phone] Aaliyah Smith MD Primary Care Provider [phone] Encounter Details Date Type Department Care Team (Latest Contact Info) Description 11/21/2020 Prep for Surgery [facility] Department of Orthopaedics [address] [place] [address] Sudhakar Curtis MD [address] [place] [address] [email or web address] Spondylolisthesis of lumbar region (Primary Dx); Lumbar stenosis with neurogenic claudication; Lumbar radiculopathy Social History Tobacco Use Types Packs/Day Years [...] st Contact Info) Description 02/20/2024 Procedure Pass [facility] Radiology [address] [place] [address] 02/25/2025 2:00 PM EST Appointment [facility] [address] [place] [address] Benji Hardwick MD, MPH [address] [address] [email or web address] 02/25/2025 2:30 PM EST Appointment [facility] Pulmonary Function Lab [address] [place] [address] Benji Hardwick MD, MPH [address] [place] [phone] [email or web address] 02/25/2025 3:40 PM EST Office Visit [facility] [address] [place] [address] Benji Hardwick MD, MPH [address] [place] [phone] [email or web address] 03/19/2025 9:40 AM EST Office Visit [facility] [address] [place] [address] Tanisha Rajan MD [address] [place] [address] [email or web address] documented as of this encounter Results * Type and Screen (ABO,Rh,Antibody Screen) (12/23/2020 11:15 AM EDT) Expiration Date of Sample 01/20/2021 11:59 PM 12/23/2020 1:14 PM EDT [facility] Resulting Agency [facility] ABO Type O 12/23/2020 1:14 PM EDT [facility] Rh Type Positive 12/23/2020 1:14 PM EDT [facility] Antibody Screen Negative 12/23/2020 1:14 PM EDT [facility] 12/23/2020 11:1 5 AM EDT 12/23/2020 12:02 PM EDT us Sudhakar Curtis MD BLOOD BANK TEST ORDERABLE S Final Result Performing Organization Address City/State/[facility] Co de Phone Number [facility] [address] [place] [address] documented in this encounter Visit Diagnoses Diagnosis Spondylolisthesis of lumbar region- Primary Lumbar stenosis with neurogenic claudication Lumbar radiculopathy Thoracic or lumbosacral neuritis or radiculitis, unspecified documented in this encounter Care Teams Core Carrier Relationship Specialty Start Date End Date Aaliyah Smith MD PCP - General Internal Medicine 01/01/18 07/10/23 Aaliyah Smith MD PCP - General Internal Medicine 11/14/23 Sudhakar Curtis MD [address] [place] [address] [email or web address] Orthopedic Surgery 12/21/22 documented as of this encounter Additional Source Comments The information contained in this document represents components of the legal health record. It is not the complete legal health record.[facility]
--- OUTSIDE RECORDS SUMMARY | 2024-10-29 11:29 | XMS_ITS | Encounter Summary ---
Author Organization [facility] Address [address] [place] [address] [place] [address] Phone Care Team Providers Care Research Program Coordinator Name Role Phone Aaliyah Smith MD Primary Care Provider [phone] Sudhakar Curtis MD Unavailable [phone] Aaliyah Smith MD Primary Care Provider + [phone] Encounter Details Date Type Department Care Team (Late st Contact Info) Description 07/28/2020 Ancillary Orders Virtual Department 30 [place] [address] Tanisha Rajan MD [address] [address] [email or web address] Postsurgical hypothyroidism Social History Tobacco Use Types Packs/Day Years [...] st Contact Info) Description 02/20/2024 Procedure Pass [facility] [address] [place] [address] 02/25/2025 2:00 PM EST Appointment [facility] [address] [place] [address] Benji Hardwick MD, MPH [address] [place] [phone] [email or web address] 02/25/2025 2:[address] [facility] Pulmonary Function Lab 15 [place] [address] Benji Hardwick MD, MPH [address] [place] [phone] [email or web address] 02/25/2025 3:40 PM EST Office Visit [facility] [address] [place] [address] Benji Hardwick MD, MPH [address] [place] [phone] [email or web address] 03/19/2025 9:40 AM EST Office Visit [facility] [address] [place] [address] Tanisha Rajan MD [address] [place] [address] [email or web address] documented as of this encounter Results * US Soft Tissues of Head and Neck (Non-Thyroid) (08/02/2020 12:14 PM EDT) Anatomical Region Laterality Modality Neck, Head Ultrasound 08/02/2020 12:5 1 PM EDT Impressions 08/02/2020 1:33 PM EDT Benign-appearing bilateral neck lymph nodes. Narrative 08/02/2020 1:33 PM EDT EXAM: US SOFT TISSUES OF HEAD AND NECK (NON-THYROID) COMPARISON: August 10, 2019 HISTORY: Postsurgical hypothyroidism FINDINGS: Benign-appearing bilateral neck lymph nodes are identified, one on the right and four on the left according to the worksheet scanned by the technologist. Procedure Note Jerry Cifuentes MD - 08/02/2020 EXAM: US SOFT TISSUES OF HEAD AND NECK (NON-THYROID) COMPARISON: August 10, 2019 HISTORY: Postsurgical hypothyroidism FINDINGS: Benign-appearing bilateral neck lymph nodes are identified, one on theright and four on the left according to the worksheet scanned by thetechnologist. IMPRESSION: Benign-appearing bilateral neck lymph nodes. Tanisha Rajan MD [facility] HEAD/NECK NON T HYROID Final Result documented in this encounter Visit Diagnoses Diagnosis Postsurgical hypothyroidism Postsurgical hypothyroidism documented in this encounter Additional Health Concerns Infection Onset Date Last Indicated Resolved Time CoV-Risk 11/02/2020 11/02/2020 11/12/2020 1:23 AM EDT documented as of this encounter Care Teams Research Program Coordinator Relationship Specialty Start Date End Date Aaliyah Smith MD PCP - General Internal Medicine 01/01/18 07/10/23 Aaliyah Smith MD PCP - General Internal Medicine 11/14/23 Sudhakar Curtis MD [address] [place] [address] [email or web address] Surgery 12/21/22 documented as of this encounter Additional Source Comments The information contained in this document represents components of the legal health record. It is not the complete legal health record.[facility]
--- OUTSIDE RECORDS SUMMARY | 2024-10-29 11:30 | XMS_ITS | Encounter Summary ---
Author Organization [facility] Address [address] [place] [address] [place] [address] Phone Care Team Providers Care Auto Clutch Specialist Name Role Phone Aaliyah Smith MD Primary Care Provider [phone] Sudhakar Curtis MD Unavailable [phone] Aaliyah Smith MD Primary Care Provider + [phone] Reason for Referral * MRI/CAT Scan - Closed Specialty Diagnoses / Procedures Referred By Contac t Referred To Contact Radiology Diagnoses Spinal stenosis, unspecified spinal region Procedures MRI Lumbar Spine Sander Harris DO Phone: tel: fax: mailto:[email or web address] Referral ID Status Reason Start Date Expiration Date Visits Re quested Visits Authorized [id number] Closed 08/18/2020 08/18/2021 1 1 Encounter Details Date Type Department Care Team (Late st Contact Info) Description 08/18/2020 Ancillary Orders Virtual Department 30 [place] [address] Sander Harris DO [address] [place] [address] [email or web address] Spinal stenosis, unspecified spinal region Social History Tobacco Use Types Packs/Day [...] st Contact Info) Description 02/20/2024 Procedure Pass [facility] Radiology 75 [place] [address] 02/25/2025 2:00 PM EST Appointment [facility] Radiology [address] [place] [address] Benji Hardwick MD, MPH [address] [place] [phone] [email or web address] 02/25/2025 2:30 PM EST Appointment [facility] Pulmonary Function Lab [address] [place] [address] Benji Hardwick MD, MPH [address] [place] [phone] [email or web address] 02/25/2025 3:40 PM EST Office Visit [facility] [address] [place] [address] Benji Hardwick MD, MPH [address] [place] [phone] [email or web address] 03/19/2025 9:40 AM EST Office Visit [facility] [address] [place] [address] Tanisha Rajan MD [address] [address] [email or web address] documented as of this encounter Results * MRI LUMBAR SPINE (NEURO) WITHOUT CONTRAST (09/02/2020 8:55 AM EDT) Anatomical Region Laterality Modality L-spine Magnetic Resonan ce 09/02/2020 9:23 AM EDT Addenda Addendum by Jerry Cifuentes MD on 09/08/2020 3:41 PM EDT ADDENDUM: Addendum created to alert the reader to ignore the words below the following line POS - [id number] in the original report. The error was alerted to me by the [facility]'s office. Impressions 09/02/2020 9:56 AM EDT Multilevel degenerative changes, most advanced at L4-L5 and L5-S1. Severe canal stenosis at L4-L5. Severe neuroforaminal stenosis on the right at L4-L5 and L5- S1. Moderate/severe neuroforaminal stenosis on the left at L5-S1. POS - [id number] SIGNIFICANT FINDINGS BY LEVEL: T12-L1:Unremarkable. L1-2: Unremarkable. L2-3: Unremarkable. L3-4: Unremarkable. L4-5: Unremarkable. L5-S1: Unremarkable. IMPRESSION: Narrative 09/02/2020 9:56 AM EDT TECHNIQUE: MRI LUMBAR SPINE (NEURO) WITHOUT CONTRAST COMPARISON: Radiographs of the lumbar spine on October 22, 2012 FINDINGS: ALIGNMENT: Anatomic alignment is maintained. Grade 1 retrolisthesis of L3 on L4. Grade 1 anterolisthesis of L4 on L5. Grade 1 retrolisthesis of L5 on S1 VERTEBRAL BODIES: Vertebral body heights are maintained. Bone marrow signal pattern is within normal limits. End plate degenerative changes at L3-L4 and in lesser degree at L2-L3 and L5-S1. INTERVERTEBRAL DISCS: Desiccation changes at all levels. Mild loss of disc height at L3-L4 and in lesser degree at L2-L3. SPINAL CORD/CONUS: Included spinal cord has normal caliber and signal characteristics. The conus terminates normally at mid L1 level. Level by level analysis yields the following: T12-L1: Bulging disc with superimposed central disc protrusion results in mild bilateral neuroforaminal stenosis and mild canal stenosis L1-2: Bulging disc with superimposed central disc protrusion results in mild bilateral neuroforaminal stenosis and mild canal stenosis. L2-3: Combination of posterior marginal osteophytes, bulging disc and hypertrophy of posterior elements contributes to moderate left and mild right neuroforaminal stenosis and mild canal stenosis. L3-4: Combination of marginal osteophytes, bulging disc and hypertrophy of posterior elements contributes to moderate bilateral neuroforaminal stenosis and mild canal stenosis. L4-5: Combination of posterior marginal osteophytes, bulging disc and hypertrophy of posterior elements contributes to severe right and moderate left neuroforaminal stenosis and severe canal stenosis. L5-S1: Combination of bulging disc and hypertrophy of posterior elements results in severe right and moderate/severe left neuroforaminal stenosis. No significant canal stenosis. OTHERS:Partially included T2 hyperintense left renal lesion likely represents a parapelvic cyst. Posterior paraspinal soft tissues are unremarkable. Procedure Note Jerry Cifuentes MD - 09/02/2020 TECHNIQUE: MRI LUMBAR SPINE (NEURO) WITHOUT CONTRAST COMPARISON: Radiographs of the lumbar spine on October 22, 2012 FINDINGS: ALIGNMENT: Anatomic alignment is maintained. Grade 1 retrolisthesis of L3on L4. Grade 1 anterolisthesis of L4 on L5. Grade 1 retrolisthesis of L5on S1 VERTEBRAL BODIES: Vertebral body heights are maintained. Bone marrowsignal pattern is within normal limits. End plate degenerative changes atL3-L4 and in lesser degree at L2-L3 and L5-S1. INTERVERTEBRAL DISCS: Desiccation changes at all levels. Mild loss of discheight at L3-L4 and in lesser degree at L2-L3. SPINAL CORD/CONUS: Included spinal cord has normal caliber and signalcharacteristics. The conus terminates normally at mid L1 level. Level by level analysis yields the following: T12-L1: Bulging disc with superimposed central disc protrusion results inmild bilateral neuroforaminal stenosis and mild canal stenosis L1-2: Bulging disc with superimposed central disc protrusion results inmild bilateral neuroforaminal stenosis and mild canal stenosis. L2-3: Combination of posterior marginal osteophytes, bulging disc andhypertrophy of posterior elements contributes to moderate left and mildright neuroforaminal stenosis and mild canal stenosis. L3-4: Combination of marginal osteophytes, bulging disc and hypertrophy ofposterior elements contributes to moderate bilateral neuroforaminalstenosis and mild canal stenosis. L4-5: Combination of posterior marginal osteophytes, bulging disc andhypertrophy of posterior elements contributes to severe right and moderateleft neuroforaminal stenosis and severe canal stenosis. L5-S1: Combination of bulging disc and hypertrophy of posterior elementsresults in severe right and moderate/severe left neuroforaminal stenosis.No significant canal stenosis. OTHERS:Partially included T2 hyperintense left renal lesion likelyrepresents a parapelvic cyst. Posterior paraspinal soft tissues areunremarkable. IMPRESSION: Multilevel degenerative changes, most advanced at L4-L5 and L5-S1. Severecanal stenosis at L4-L5. Severe neuroforaminal stenosis on the right atL4-L5 and L5- S1. Moderate/severe neuroforaminal stenosis on the left atL5-S1. POS - [id number] SIGNIFICANT FINDINGS BY LEVEL: T12-L1:Unremarkable. L1-2: Unremarkable. L2-3: Unremarkable. L3-4: Unremarkable. L4-5: Unremarkable. L5-S1: Unremarkable. IMPRESSION: us Sander Harris DO IMG MR XSPECIALTY Edited Res ult - Final documented in this encounter Visit Diagnoses Diagnosis Spinal stenosis, unspecified spinal region Spinal stenosis, unspecified spinal region documented in this encounter Additional Health Concerns Infection Onset Date Last Indicated Resolved Time CoV-Risk 11/02/2020 11/02/2020 11/12/2020 1:23 AM EDT documented as of this encounter Care Teams Auto Clutch Specialist Relationship Specialty Start Date End Date Aaliyah Smith MD PCP - General Internal Medicine 01/01/18 07/10/23 Aaliyah Smith MD PCP - General Internal Medicine 11/14/23 Sudhakar Curtis MD [address] [place] [phone] [email or web address] Orthopedic Surgery 12/21/22 documented as of this encounter Additional Source Comments The information contained in this document represents components of the legal health record. It is not the complete legal health record.[facility]
--- OUTSIDE RECORDS SUMMARY | 2024-10-29 11:30 | XMS_ITS | Encounter Summary ---
Author Organization [facility] Address [address] [place] [address] [place] [address] Phone Care Team Providers Care Bag Shop Worker Name Role Phone Aaliyah Smith MD Primary Care Provider [phone] Sudhakar Curtis MD Unavailable [phone] Aaliyah Smith MD Primary Care Provider [phone] Encounter Details Date Type Department Care Team (Late st Contact Info) Description 07/15/2018 Transcribe Orders [facility] Laboratory 30 [place] [address] Tanisha Rajan MD [address] [address] [email or web address] Malignant neoplasm of thyroid gland (Primary Dx) Social History Tobacco Use Types [...] 02/20/2024 Procedure Pass [facility] [address] [place] [address] 02/25/2025 2:00 PM EST Appointment [facility] [address] [place] [address] Benji Hardwick MD, MPH [address] [place] [phone] [email or web address] 02/25/2025 2:30 PM EST Appointment [facility] Pulmonary Function Lab 15 [place] [address] Benji Hardwick MD, MPH [address] [place] [phone] [email or web address] 02/25/2025 3:40 PM EST Office Visit [facility] Center for Chest Diseases [address] [place] [address] Benji Hardwick MD, MPH [address] [place] [phone] [email or web address] 03/19/2025 9:40 AM EST Office Visit [facility] 22 [place] [address] Tanisha Rajan MD [address] [place] [address] [email or web address] documented as of this encounter Results * (ABNORMAL) Thyroglobulin, Tumor Marker (07/15/2018 1:23 PM EDT) THYROGLOBULIN 3.1(H) ng/mL [facility] Comment: (NOTE) REFERENCE VALUE Athyrotic <0.1 Intact Thyroid <=33 THYROGLOBULIN AB <1.8 <4.0 IU/mL [facility] THYROGLOBULIN INTRP SEE NOTE [facility] Comment: (NOTE) Thyroglobulin (Tg) [...] testing methods are immunoenzymatic assays manufactured by [employer]. and performed on the [employer] DXI 800. Values obtained from different assay methods or kits may be different and cannot be used interchangeably. The results cannot be interpreted as absolute evidence for the presence or absence of malignant disease. Blood 07/15/2018 1:23 PM EDT 07/15/2018 1:27 PM EDT Tanisha Rajan MD LAB BLOOD ORDERABLES F inal Result Performing Organization Address City/[facility]/ZIP Co de Phone Number [facility] MED/[facility] [address] [address] [place] [address] * (ABNORMAL) TSH with reflex (07/15/2018 1:23 PM EDT) TSH 0.07(L) 0.27 - 4.20 uIU/mL [facility] Blood 07/15/2018 1:23 PM EDT 07/15/2018 1:26 PM EDT Tanisha Rajan MD LAB BLOOD ORDERABLES F inal Result Performing Organization Address City/[facility]/ZIP Co de Phone Number [facility] [address] [place] [address] documented in this encounter Visit Diagnoses Diagnosis Malignant neoplasm of thyroid gland- Primary documented in this encounter Additional Health Concerns Infection Onset Date Last Indicated Resolved Time CoV-Risk 11/02/2020 11/02/2020 11/12/2020 1:23 AM EDT documented as of this encounter Care Teams Bag Shop Worker Relationship Specialty Start Date End Date Aaliyah Smith MD PCP - General Internal Medicine 01/01/18 07/10/23 Aaliyah Smith MD PCP - General Internal Medicine 11/14/23 Sudhakar Curtis MD [address] [place] [phone] [email or web address] Orthopedic Surgery 12/21/22 documented as of this encounter Additional Source Comments The information contained in this document represents components of the legal health record. It is not the complete legal health record.[facility]
--- OUTSIDE RECORDS SUMMARY | 2024-10-29 11:30 | XMS_ITS | Encounter Summary ---
Author Organization [facility] Address [address] [facility] [address] [place] [address] Phone Care Team Providers Care News Copy Editor Name Role Phone Aaliyah Smith MD Primary Care Provider [phone] Sudhakar Curtis MD Unavailable [phone] Aaliyah Smith MD Primary Care Provider [phone] Encounter Details Date Type Department Care Team (Late st Contact Info) Description 08/18/2020 Procedure Pass [address] [address] Social History Tobacco Use Types Packs/Day Years [...] st Contact Info) Description 02/20/2024 Procedure Pass [facility] [address] [place] [address] 02/25/2025 2:00 PM EST Appointment [facility] [address] [place] [address] Benji Hardwick MD, MPH [address] [place] [phone] [email or web address] 02/25/2025 2:30 PM EST Appointment [facility] Pulmonary Function Lab [address] [place] [address] Benji Hardwick MD, MPH [address] [place] [phone] [email or web address] 02/25/2025 3:40 PM EST Office Visit [facility] [address] [place] [address] Benji Hardwick MD, MPH [address] [place] [phone] [email or web address] 03/19/2025 9:40 AM EST Office Visit [facility] [address] [place] [address] Tanisha Rajan MD [address] [place] [phone] [email or web address] documented as of this encounter Visit Diagnoses Not on filedocumented in this encounter Additional Health Concerns Infection Onset Date Last Indicated Resolved Time CoV-Risk 11/02/2020 11/02/2020 11/12/2020 1:23 AM EDT documented as of this encounter Care Teams News Copy Editor Relationship Specialty Start Date End Date Aaliyah Smith MD PCP - General Internal Medicine 01/01/18 07/10/23 Aaliyah Smith MD PCP - General Internal Medicine 11/14/23 Sudhakar Curtis MD [address] [place] [address] [email or web address] Orthopedic Surgery 12/21/22 documented as of this encounter Additional Source Comments The information contained in this document represents components of the legal health record. It is not the complete legal health record.[facility]
--- OUTSIDE RECORDS SUMMARY | 2024-10-29 11:30 | XMS_ITS | Encounter Summary ---
Author Organization [facility] Address [address] [facility] [address] [place] [address] Phone Care Team Providers Care Stock Grader Name Role Phone Aaliyah Smith MD Primary Care Provider [phone] Sudhakar Curtis MD Unavailable [phone] Aaliyah Smith MD Primary Care Provider [phone] Encounter Details Date Type Department Care Team (Late st Contact Info) Description 09/02/2020 Ancillary Orders [facility],Outside Imaging 30 [place] [address] System, Provider Not In, PhD [address] [address] Social History Tobacco Use Types Packs/Day Years [...] st Contact Info) Description 02/20/2024 Procedure Pass [facility] [address] [place] [address] 02/25/2025 2:00 PM EST Appointment [facility] [address] [place] [address] Benji Hardwick MD, MPH [address] [place] [phone] [email or web address] 02/25/2025 2:30 PM EST Appointment [facility] Pulmonary Function Lab 15 [place] [address] Benji Hardwick MD, MPH [address] [place] [address] [email or web address] 02/25/2025 3:40 PM EST Office Visit [facility] and [facility] 15 [place] [address] Benji Hardwick MD, MPH [address] [place] [phone] [email or web address] 03/19/2025 9:40 AM EST Office Visit [facility] [address] [place] [address] Tanisha Rajan MD [address] [place] [phone] [email or web address] documented as of this encounter Results * MRI Spine (Bone) [...] documented as of this encounter Care Teams Stock Grader Relationship Specialty Start Date End Date Aaliyah Smith MD PCP - General Internal Medicine 01/01/18 07/10/23 Aaliyah Smith MD PCP - General Internal Medicine 11/14/23 Sudhakar Curtis MD [address] [place] [phone] [email or web address] Surgery 12/21/22 documented as of this encounter Additional Source Comments The information contained in this document represents components of the legal health record. It is not the complete legal health record.[facility]
--- OUTSIDE RECORDS SUMMARY | 2024-10-29 11:30 | XMS_ITS | Encounter Summary ---
Author Organization [facility] Address [address] [place] [address] [place] [address] Phone Care Team Providers Care Ext Js Developer Name Role Phone Aaliyah Smith MD Primary Care Provider [phone] Sabina Curtis MD Unavailable [phone] Aaliyah Smith MD Primary Care Provider [phone] Encounter Details Date Type Department Care Team (Late st Contact Info) Description 11/27/2018 Ancillary Orders Virtual Department 30 [place] [address] Tanisha Rajan MD [address] [address] [email or web address] Thyroid cancer Social History Tobacco Use Types [...] st Contact Info) Description 02/20/2024 Procedure Pass [facility] [address] [place] [address] 02/25/2025 2:00 PM EST Appointment [facility] [address] [place] [address] Benji Hardwick MD, MPH [address] [place] [phone] [email or web address] 02/25/2025 2:30 PM EST Appointment [facility] Pulmonary Function Lab 15 [place] [address] Benji Hardwick MD, MPH [address] [place] [phone] [email or web address] 02/25/2025 3:40 PM EST Office Visit [facility] and [facility] 15 [place] [address] Benji Hardwick MD, MPH [address] [place] [phone] [email or web address] 03/19/2025 9:40 AM EST Office Visit [facility] [address] [place] [address] Tanisha Rajan MD [address] [place] [address] [email or web address] documented as of this encounter Results * US Soft Tissues of Head and Neck (Non-Thyroid) (12/25/2018 1:30 PM EST) Anatomical Region Laterality Modality Neck, Head Ultrasound 12/25/2018 1:44 PM EST Impressions 12/25/2018 1:46 PM EST Stable mild bilateral neck lymphadenopathy. No findings suspicious for metastatic disease. POS [id number] Narrative 12/25/2018 1:46 PM EST COMPARISON: 2018. LIMITED SOFT TISSUE ULTRASOUND FINDINGS: Right neck: Stable 7 mm lymph node the upper lateral neck. The second upper medial lymph node is not identified. No suspicious features. Left neck: Only three lymph nodes are identified compared to four previously with a dominant lymph node measuring 1.3 cm in the upper lateral in the lateral neck which has not significantly changed. No suspicious features. Mid line: Stable 1 cm submental lymph node. No suspicious features. Procedure Note Sabina Palomares MD - 12/25/2018 COMPARISON: 2018. LIMITED SOFT TISSUE ULTRASOUND FINDINGS: Right neck: Stable 7 mm lymph node the upper lateral neck. The secondupper medial lymph node is not identified. No suspicious features. Left neck: Only three lymph nodes are identified compared to fourpreviously with a dominant lymph node measuring 1.3 cm in the upperlateral in the lateral neck which has not significantly changed. Nosuspicious features. Mid line: Stable 1 cm submental lymph node. No suspicious features. IMPRESSION: Stable mild bilateral neck lymphadenopathy. No findings suspicious formetastatic disease. POS [id number] [facility] Center[facility] MD IMG US HEAD/NECK NON T HYROID Final Result documented in this encounter Visit Diagnoses Diagnosis Thyroid cancer Malignant neoplasm of thyroid gland Thyroid cancer Malignant neoplasm of thyroid gland documented in this encounter Additional Health Concerns Infection Onset Date Last Indicated Resolved Time CoV-Risk 11/02/2020 11/02/2020 11/12/2020 1:23 AM EDT documented as of this encounter Care Teams Ext Js Developer Relationship Specialty Start Date End Date Aaliyah Smith MD PCP - General Internal Medicine 01/01/18 07/10/23 Aaliyah Smith MD PCP - General Internal Medicine 11/14/23 Sabina Curtis MD [address] [place] [address] [email or web address] Orthopedic Surgery 12/21/22 documented as of this encounter Additional Source Comments The information contained in this document represents components of the legal health record. It is not the complete legal health record.[facility]
--- OUTSIDE RECORDS SUMMARY | 2024-10-29 11:30 | XMS_ITS | Encounter Summary ---
Author Organization [facility] Address [address] [facility] [address] [place] [address] Phone Care Team Providers Care Aircraft Systems Technician Name Role Phone Aaliyah Smith MD Primary Care Provider [phone] Sudhakar Curtis MD Unavailable [phone] Aaliyah Smith MD Primary Care Provider Encounter Details Date Type Department Care Team (Late st Contact Info) Description 10/10/2020 Transcribe Orders Virtual Department 30 [place] [address] Rebecca Galan PA [address] [place] [address] Ascending aorta dilatation (Primary Dx); Renal lesion Social History Tobacco Use Types Packs/Day Years [...] st Contact Info) Description 02/20/2024 Procedure Pass [facility] 75 [place] [address] 02/25/2025 2:00 PM EST Appointment [facility] 75 [place] [address] Benji Hardwick MD, MPH [address] [place] [phone] [email or web address] 02/25/2025 2:[address] [facility] Pulmonary Function Lab 15 [place] [address] Benji Hardwick MD, MPH [address] [place] [phone] [email or web address] 02/25/2025 3:40 PM EST Office Visit [facility] 15 [place] [address] Benji Hardwick MD, MPH [address] [place] [phone] [email or web address] 03/19/2025 9:40 AM EST Office Visit [facility] [address] [place] [address] Tanisha Rajan MD [address] [place] [address] [email or web address] documented as of this encounter Results * US Kidneys (10/19/2020 8:45 AM EDT) Anatomical Region Laterality Modality Abdomen, Kidney Ultrasound 10/19/2020 8:47 AM EDT Impressions 10/19/2020 8:51 AM EDT No worrisome or mediastinal masses detected sonographically. 2 renal cysts on the left. Narrative 10/19/2020 8:51 AM EDT COMPARISON: None FINDINGS: Kidneys: Acoustic windows are limited particularly for evaluation of the left kidney. No solid masses are detected. There is a cyst in the left upper pole measuring up to 2.0 cm and a similarly sized cyst at the lower pole. No stones detected in either kidneys. No increased echogenicity. Right kidney is measured at 13.7 cm in length and left 12.4 cm. Procedure Note Baljeet Rosa MD - 10/19/2020 COMPARISON: None FINDINGS: Kidneys: Acoustic windows are limited particularly for evaluation of theleft kidney. No solid masses are detected. There is a cyst in the leftupper pole measuring up to 2.0 cm and a similarly sized cyst at the lowerpole. No stones detected in either kidneys. No increased echogenicity.Right kidney is measured at 13.7 cm in length and left 12.4 cm. IMPRESSION: No worrisome or mediastinal masses detected sonographically. 2 renal cystson the left. us Rebecca NERI IMG US RENAL Final Result * US Aorta Duplex Complete (10/19/2020 8:44 AM EDT) Anatomical Region Laterality Modality Aorta Ultrasound 10/19/2020 8:45 AM EDT Impressions 10/19/2020 8:47 AM EDT No evidence of abdominal aortic aneurysm or proximal iliac aneurysm or stenosis. Narrative 10/19/2020 8:47 AM EDT There is normal tapering of the abdominal aorta from proximal 2.2 x 2.2 cm to distal 1.8 x 1.8 cm. No prominent atherosclerotic changes. Right iliac is measured at 1.2 x 1.3 cm and left 1.2 x 1.2 cm. There is no evidence of stenosis on color Doppler imaging. Procedure Note Baljeet Rosa MD - 10/19/2020 There is normal tapering of the abdominal aorta from proximal 2.2 x 2.2 cmto distal 1.8 x 1.8 cm. No prominent atherosclerotic changes. Right iliacis measured at 1.2 x 1.3 cm and left 1.2 x 1.2 cm. There is no evidence ofstenosis on color Doppler imaging. IMPRESSION: No evidence of abdominal aortic aneurysm or proximal iliac aneurysm orstenosis. 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 Surgery 12/21/22 documented as of this encounter Additional Source Comments The information contained in this document represents components of the legal health record. It is not the complete legal health record.[facility]
--- OUTSIDE RECORDS SUMMARY | 2024-10-29 11:32 | XMS_ITS | Encounter Summary ---
Author Organization [facility] Address [address] [place] [address] [place] [address] Phone Care Team Providers Care Pillowcase Folder Name Role Phone Aaliyah Smith MD Primary Care Provider [phone] Sudhakar Curtis MD Unavailable [phone] Aaliyah Smith MD Primary Care Provider [phone] Encounter Details Date Type Department Care Team (Late st Contact Info) Description 2018 Transcribe Orders [facility] Laboratory [address] [place] [address] Tanisha Rajan MD [address] [address] [email or web address] Postsurgical hypothyroidism (Primary Dx); Thyroid cancer Social History Tobacco Use Types [...] 02/20/2024 Procedure Pass [facility] [address] [place] [address] 02/25/2025 2:00 PM EST Appointment [facility] [address] [place] [address] Benji Hardwick MD, MPH [address] [place] [phone] [email or web address] 02/25/2025 2:30 PM EST Appointment [facility] Pulmonary Function Lab 15 [place] [address] Benji Hardwick MD, MPH [address] [place] [phone] [email or web address] 02/25/2025 3:40 PM EST Office Visit [facility] 15 [place] [address] Benji Hardwick MD, MPH [address] [place] [phone] [email or web address] 03/19/2025 9:40 AM EST Office Visit [facility] [address] [place] [address] Tanisha Rajan MD [address] [place] [address] [email or web address] documented as of this encounter Results * (ABNORMAL) Thyroglobulin, Tumor Marker (2018 1:40 PM EST) THYROGLOBULIN 2.4(H) ng/mL [facility] Comment: (NOTE) REFERENCE VALUE Athyrotic <0.1 Intact Thyroid <=33 THYROGLOBULIN AB <1.8 <4.0 IU/mL [facility] THYROGLOBULIN INTRP SEE [...] testing methods are immunoenzymatic assays manufactured by [employer]. and performed on the [employer] DXI 800. Values obtained from different assay methods or kits may be different and cannot be used interchangeably. The results cannot be interpreted as absolute evidence for the presence or absence of malignant disease. Blood 2018 1:40 PM EST 2018 1:43 PM EST Tanisha Rajan MD LAB BLOOD ORDERABLES F inal Result Performing Organization Address City/[facility]/ZIP Co de Phone Number [facility] LAB MED/PATH [facility] [address] [place] [address] * (ABNORMAL) TSH with reflex (2018 1:40 PM EST) TSH 0.10(L) 0.27 - 4.20 uIU/mL [facility] Blood 2018 1:40 PM EST 2018 1:43 PM EST Tanisha Rajan MD LAB BLOOD ORDERABLES F inal Result Performing Organization Address City/[facility]/ZIP Co de Phone Number [facility] [address] [place] [address] documented in this encounter Visit Diagnoses Diagnosis Postsurgical hypothyroidism- Primary Thyroid cancer Malignant neoplasm of thyroid gland documented in this encounter Additional Health Concerns Infection Onset Date Last Indicated Resolved Time CoV-Risk 11/02/2020 11/02/2020 11/12/2020 1:23 AM EDT documented as of this encounter Care Teams Pillowcase Folder Relationship Specialty Start Date End Date Aaliyah Smith MD PCP - General Internal Medicine 01/01/18 07/10/23 Aaliyah Smith MD PCP - General Internal Medicine 11/14/23 Sudhakar Curtis MD [address] [place] [address] [email or web address] Orthopedic Surgery 12/21/22 documented as of this encounter Additional Source Comments The information contained in this document represents components of the legal health record. It is not the complete legal health record.[facility]
--- OUTSIDE RECORDS SUMMARY | 2024-10-29 11:32 | XMS_ITS | Encounter Summary ---
Author Organization [facility] Address [address] [place] [address] [place] [address] Phone Care Team Providers Care Continuous Mining Operator Name Role Phone Aaliyah Smith MD Primary Care Provider [phone] Sudhakar Curtis MD Unavailable [phone] Aaliyah Smith MD Primary Care Provider [phone] Encounter Details Date Type Department Care Team (Late st Contact Info) Description 08/06/2019 Ancillary Orders Virtual Department 30 [place] [address] Tanisha Rajan MD [address] [address] [email or web address] Thyroid cancer Social [...] [facility] 75 [place] [address] 02/25/2025 2:00 PM EST Appointment [facility] [address] [place] [address] Benji Hardwick MD, MPH [address] [place] [phone] [email or web address] 02/25/2025 2:30 PM EST Appointment [facility] Pulmonary Function Lab 15 [place] [address] Benji Hardwick MD, MPH [address] [place] [phone] [email or web address] 02/25/2025 3:40 PM EST Office Visit [facility] 15 [place] [address] Benji Hardwick MD, MPH [address] [place] [phone] [email or web address] 03/19/2025 9:40 AM EST Office Visit [facility] [address] [place] [address] Tanisha Rajan MD [address] [place] [address] [email or web address] documented as of this encounter Results * US Soft Tissues of Head and Neck (Non-Thyroid) (08/10/2019 2:10 PM EDT) Anatomical Region Laterality Modality Neck, Head Ultrasound 08/10/2019 3:03 PM EDT Impressions 08/10/2019 3:22 PM EDT No suspicious lymphadenopathy in the neck. Several benign-appearing lymph nodes. POS - [id number] Narrative 08/10/2019 3:22 PM EDT EXAM: US SOFT TISSUES OF HEAD AND NECK (NON-THYROID) HISTORY: THYROID CANCER, thyroidectomy. COMPARISON: 12/25/2018, 2018. TECHNIQUE: Grayscale and color Doppler ultrasound imaging of the neck. FINDINGS: Right neck: Single benign appearing lymph node with large fatty myron and thin cortex, measures 12 x 6 x 11 mm. Left neck: Four lymph nodes identified, all with benign features, measuring 9 x 3 x 8 mm, 9 x 4 x 8 mm, 11 x 4 x 6 mm and 11 x 5 x 12 mm. No suspicious features. Midline: Stable 9 x 4 x 8 mm submental lymph node. No suspicious features. Procedure Note Melissa Sousa MD - 08/10/2019 EXAM: US SOFT TISSUES OF HEAD AND NECK (NON-THYROID) HISTORY: THYROID CANCER, thyroidectomy. COMPARISON: 12/25/2018, 2018. TECHNIQUE: Grayscale and color Doppler ultrasound imaging of the neck. FINDINGS: Right neck: Single benign appearing lymph node with large fatty myron andthin cortex, measures 12 x 6 x 11 mm. Left neck: Four lymph nodes identified, all with benign features,measuring 9 x 3 x 8 mm, 9 x 4 x 8 mm, 11 x 4 x 6 mm and 11 x 5 x 12 mm. Nosuspicious features. Midline: Stable 9 x 4 x 8 mm submental lymph node. No suspiciousfeatures. IMPRESSION: No suspicious lymphadenopathy in the neck. Several benign-appearing lymphnodes. POS - [id number] Tanisha Rajan MD IMG US HEAD/NECK NON T HYROID Final Result documented in this encounter Visit Diagnoses Diagnosis Thyroid cancer Malignant neoplasm of thyroid gland Thyroid cancer Malignant neoplasm of thyroid gland documented in this encounter Additional Health Concerns Infection Onset Date Last Indicated Resolved Time CoV-Risk 11/02/2020 11/02/2020 11/12/2020 1:23 AM EDT documented as of this encounter Care Teams Continuous Mining Operator Relationship Specialty Start Date End Date Aaliyah Smith MD PCP - General Internal Medicine 01/01/18 07/10/23 Aaliyah Smith MD PCP - General Internal Medicine 11/14/23 Sudhakar Curtis MD [address] [place] [phone] [email or web address] Orthopedic Surgery 12/21/22 documented as of this encounter Additional Source Comments The information contained in this document represents components of the legal health record. It is not the complete legal health record.[facility]
[2024-10-29 11:34] LABS: MANUAL DIFF FLAG NO
[2024-10-29 11:39] LABS: Hematocrit 44.2 % (42.0-52.0); Hemoglobin 14.5 g/dl (14.0-18.0); Imm Gran Abs Auto 0.01 X10*3/uL (0.00-0.03); Imm Gran Pct Auto 0.2 % (0.0-0.4); Lymphocytes Absolute Auto 1.4 X10*3/uL (1.2-4.9); Mean Corpuscular HGB Conc 32.8 g/dl (31.0-36.0); Mean Corpuscular Hemoglobin 29.3 pg (27.0-33.0); Mean Corpuscular Volume 89.3 fL (80.0-98.0); NRBC Abs Auto 0.000 X10*3/uL (0.0-0.012); NRBC Pct Auto 0.0 /100WBC (0.0-0.2); Platelet Count 267 X10*3/uL (160-400); Red Blood Count 4.95 X10*6/uL (4.60-5.80); White Blood Count 5.3 X10*3/uL (4.8-10.8)
[2024-10-29 12:15] LABS: Alanine Aminotransferase 16 U/L (0-40); Albumin Level 4.3 g/dL (3.5-5.0); Alkaline Phosphatase 54 U/L (39-117); Anion Gap 12 (12-20); Aspartate Amino Transferase 31 U/L (5-37); Blood Urea Nitrogen 17 mg/dL (9-16); Calcium 9.4 mg/dL (8.4-10.2); Carbon Dioxide 27 mmol/L (22-29); Chloride 104 mmol/L (96-108); Cholesterol 133 mg/dL (<200); Estimated Glomerular Filt Rate > 60; HDL Cholesterol 46 mg/dL (>40); Potassium 4.0 mmol/L (3.3-5.1); Sodium 139 mmol/L (135-145); Total Protein 6.9 g/dL (6.5-8.0); Triglycerides 66 mg/dL (<150)
[2024-10-29 13:16] LABS: Free T4 (Free Thyroxine) 1.57 ng/dL (0.71-1.85)
== END 2024-10-29 08:47 | disposition home or self-care (01) ==
LOC: HO.WFDLDS 08:46
PROVIDERS: PCP Internal Medicine; Visit Provider Internal Medicine
DX: Z23 Encounter for immunization (principal); C73 Malignant neoplasm of thyroid gland; C79.9 Secondary malignant neoplasm of unspecified site; R13.10 Dysphagia, unspecified; R06.02 Shortness of breath; R06.09 Other forms of dyspnea; Z79.890 Hormone replacement therapy; Z79.1 Long term (current) use of non-steroidal anti-inflammatories (NSAID); Z79.899 Other long term (current) drug therapy
CPT/HCPCS: 36415; 80053; 80061; 84439; 84443; 85025; 90471; 90715; 99212

== ENCOUNTER 2024-12-21 09:58 | Outpatient (AMB) | payer MEDICARE, SELFPAY ==
--- OUTSIDE RECORDS SUMMARY | 2013-01-08 | XMS_ITS | Encounter Summary ---
Author Organization [facility] Address [address] [place] [phone] Phone Care Team Providers Care Grain Mixer Name Role Phone Unavailable Primary Care Provider Unavailabl e Encounter Details Date Type Department Care Team (Late st Contact Info) Description 01/08/2013 Hospital Encounter [facility],Outside Imaging [address] [place] [address] System, Provider Not In, [place] [address] Social History Tobacco Use Types Packs/Day Years Used Date Smoking Tobacco: Former Passive Smoke Exposure: Past Smokeless Tobacco: Never Comments:Quit over 50 years ago Alcohol Use Standard Drinks/Week Comments Not Currently 0 (1 standard drink = 0.6 oz pur e alcohol) Education Answer Date Recorded Are you interested in more education? Not on markel e 06/15/2022 Are you concerned about learning? Not on file 06/15/2022 No 06/15/2022 No 06/15/2022 Digital Access Answer Date Recorded No 07/13/2022 No 07/13/2022 Reliable internet access at home? Not on file 07/13/2022 Device with a working camera? Not on file Sex and Gender Information Value Date Recorded Sex Assigned at Not on file Legal Sex Male 10:06 PM EDT Gender Identity Not on file Sexual Orientation Not on file documented as of this encounter Functional Status * Calculated C-SSRS Risk Score (Lifetime/Recent) Answer Date of Assessment Author No Risk Indicated 11/02/2020 11:10 AM EDT Hyun Carrasquillo RN * [place] Suicide Severity Rating Scale (Screener/Recent Self-Report) Question Answer Date of Assessment Author 1. Wish to be (Past 1 Month) No 11:10 AM EDT Hyun Carrasquillo, RN 2. Non-Specific Active Suici hilda Thoughts (Past 1 Month) No 11/02/2020 11:10 AM EDT Karen Carrasquillo, RN 6. Suicidal Behavior (Lifetime) No 11:10 AM EDT Hyun Carrasquillo, RN documented as of this encounter Plan of Treatment Upcoming Encounters Date Type Department Care Team (Late st Contact Info) Description 02/20/2024 Procedure Pass [facility] Radiology [address] [place] [phone] 02/25/2025 2:00 PM EST Appointment [facility] Radiology [address] [place] [address] Benji Hardwick MD, MPH [address] [place] [phone] [email or web address] 02/25/2025 2:30 PM EST Appointment [facility] Pulmonary Function Lab [address] [place] [phone] Benji Hardwick MD, MPH [address] [place] [phone] [email or web address] 02/25/2025 3:40 PM EST Office Visit [facility] [address] [place] [phone] Benji Hardwick MD, MPH [address] [place] [phone] [email or web address] 03/19/2025 9:40 AM EST Office Visit [facility] [address] [place] [address] Tanisha Rajan MD [address] [place] [address] [phone] (work) [email or web address] documented as of this encounter Procedures Procedure Name Priority Date/Time Associated Diagnosis Comments MRI SPINE MUSCULOSKELETAL FOCUS OUTSIDE (NO INTERPRETATION) Routine 01/08/2013 12:00 AM EST documented in this encounter Results * MRI Spine (Bone) Outside (No Interpretation) (01/08/2013 12:00 AM EST) Narrative SYSTEMGENERATED, DOCUMENTATION - 09/02/2020 8:24 AM EDT This study is for PACS storage only and not for interpretation. us Provider Not In System PhD IMG OUTSIDE IMAGING W /OUT INTERPRETATION Final Result documented in this encounter Visit Diagnoses Not on filedocumented in this encounter Additional Health Concerns Infection Onset Date Last Indicated Resolved Time CoV-Risk 11/02/2020 11/02/2020 11/12/2020 1:23 AM EDT documented as of this encounter Additional Source Comments The information contained in this document represents components of the legal health record. It is not the complete legal health record.[facility]
--- NOTE | 2024-12-21 10:05 | MHC.OFFVIS ---
Vital Signs 12/21/24 10:20 Height 6 ft 3 in Weight 230 lb BMI 28.7 BP 120/84 Blood Pressure Location Rt brachial Position Sitting Pulse 144 H Pulse Source Pulse Oximeter Pulse Oximetry (%) 97 Oxygen Delivery Method Room Air Intake Visit Reasons: 4 mo Intake Note: Est Pt for mgmt of dysphagia + pharyngitis. Imaging scheduled CC; C.O. intermittent sx. Pt reports taking the PPI PRN. Pt was not very clear on why the medication is helpful and why it is important to take it daily, even if he does not have sx that day. Anesthesiology Physician Required: No Accompanied by: Self / Same As Patient Allergies bee pollen (bee stings) Allergy (Severe, Verified 12/21/24 10:44) Anaphylaxis HPI HPI 4 mo: Details: LAST VISIT Dysphagia Plan Patient does not want to take pantoprazole or any other PPI as he does not have reflux. Occasional dysphagia happens only once in awhile. Patient was instructed to hold his neck when he swallowing and making sure that he chews very well. Will send him for upper GI series with barium swallow to re-evaluate for reflux versus narrowing, Schatzki ring. Did explain to patient that if reflux is found he will need to go on PPI. Patient will follow-up in the office in 4 months, sooner on as needed basis. He is agreeable to this plan and verbalizes understanding of instructions. He was given the opportunity to ask questions and all questions answered. ? Thank you for allowing me to participate in his care Orders FL upper GI w Ba Swallow Today K21.9 TODAY'S VISIT Patient is here today for follow-up. Patient reports that Saturday he had an episode of epigastric pain. Patient is like his pain more in the middle of his chest, felt more like pressure. Reports feeling weak and tired the whole day. Yesterday patient reports that he felt little better, however still feeling not himself. Patient also reports shortness of breath at rest. Epigastric/mid chest pressure no radiation. Denies any nausea or vomiting. Took pantoprazole as he thought that it was his reflux. He reports he takes pantoprazole only as needed. Did not work for him that day. Today patient is coming to the office feeling tired, denies any chest pain or shortness of breath. Heart rate 145. Patient denies feeling anxious. No history of AFib in the past. He is on levothyroxine and is taking it daily as ordered. Patient is not on any anticoagulation therapy. Call placed to ED, spoke to ED provider, report given. Patient will be sent down to ER to evaluate patient. [facility] Surgical History Hx of spinal surgery History of ptosis repair Voice impairment History of transurethral resection of prostate Epidermal inclusion cyst History of right knee surgery S/P foot surgery, right Right shoulder injury History of thyroidectomy Neoplasm of right patella Inguinal hernia bilateral, non-recurrent Left hand pain Family History Mother Coronary artery disease Pulmonary embolism Father Cancer of prostate Social History Housing: House Alcohol intake: never Patient Tobacco Use Status: Former Tobacco user Cigarette Packs Per Day: 0.5 Years Smoked: 3 e-Cigarette/Vaping Use: Never Used Second Hand Smoke Exposure: No service: Yes Current occupational status: retired Cognitive needs: No Hearing needs: Yes (bilateral hearing aids) Vision needs: Yes (glasses) Review of Systems Const Denies weight gain and Denies weight loss ENT Reports no additional complaints, Reports dysphagia (Occasional) and Denies odynophagia Card Reports no additional complaints Resp Reports no additional complaints GI Denies abdominal pain, Denies belching, Denies melena, Denies bloating, Denies change in bowel habits, Reports dysphagia (Occasional), Denies excessive flatus, Denies dyspepsia, Denies heartburn, Denies diarrhea, Denies loose stools, Denies nausea, Denies odynophagia and Denies vomiting Reports no additional complaints Musc Reports no additional complaints Neuro Reports no additional complaints Psych Reports no additional complaints Endo Reports no additional complaints Physical Exam Vital Signs: Last Vital Signs Pulse 144 H 12/21/24 10:20 BP 120/84 12/21/24 10:20 Pulse Ox 97 12/21/24 10:20 Oxygen Delivery Method Room Air 12/21/24 10:20 BMI result Body Mass Index 28.7 Const Other: Ambulating with a cane General: healthy appearing and no acute distress Nutritional Appearance: well nourished Orientation/consciousness: patient oriented x3 Resp Effort & Inspection: normal respiratory effort, able to speak in complete sentences, no tracheal deviation and symmetric chest movement Auscultation: clear to auscultation bilaterally Cardio Rate: tachycardic GI Inspection: Yes normal to inspection and No distended Palpation (GI): Soft to palpation, not firm, nontender and No hepatosplenomegaly present Auscultation: normal bowel sounds General: Yes no CVA tenderness Back/Spine/Pelvis Back: no CVA tenderness Skin General skin exam: elasticity normal, turgor normal and dry skin Neuro General: patient oriented x3 Psych Appearance: grossly normal Mental Status: mental status grossly normal Results Reviewed Results Reviewed: MODIFIED BARIUM SWALLOW FINDINGS: On oral menstruation of thin barium there is trace laryngeal penetration, but no aspiration. No retention in valleculae or piriform sinuses. On oral administration of saltine crackers coated with barium and nectar consistency barium there is normal oral mastication with solid food and propagation of bolus from the oral cavity through the pharynx and esophagus. No laryngeal penetration or aspiration seen. FLUOROSCOPY TIME: 1 minute 2 seconds DOSE AREA PRODUCT: 1132 uGy-m2 (microgray-meter squared) FL/FL Modified Barium Swallow IMPRESSION: Trace laryngeal penetration with thin barium but otherwise unremarkable modified barium swallow. SPEECH THERAPY NOTES Recommendation for Speech Therapy: Outpatient Speech TherapyText Comment: Intake Recommendations: Route: PO Diet Grade: Regular Liquid Consistencies: Thin Post-Study Functional Oral Intake Scale (FOIS): 7- Total oral intake with no restrictions Mild oropharyngeal dysphagia. Trace penetration above the vocal folds with thin liquid. No evidence of aspiration during this exam. Good oral and pharyngeal clearance. Suggested Referrals: The patient might benefit from a referral to: Gastroenterology Indication for Referral: Patient reports occasional acid reflux Otolaryngology Indication for Referral: Weak voice, patient reports vocal fold(s) paralysis MACHINE SIGN WRITER specializing in voice disorders Indication for Referral: Instrumental voice evaluation (e.g. videostroboscopy) with voice treatment if indicated Therapy Recommendations: Recommend 1-2 follow up visits with a speech pathologist to review MBSS findings and recommended feeding strategies. While no aspiration was evident during this exam in a controlled environment, there was trace penetration noted above the vocal folds, patient is at risk for aspiration given his history of vocal fold paralysis, which could impact airway protection. Recommend resume regular texture diet and thin liquids with aspiration precautions: take small sips, one sip at a time, avoid ?chugging? liquids, avoid the use of straws, take small bites of food, chew food well, clear oral cavity before taking more bites, dry swallow between bites as needed for clearance. MACHINE SIGN WRITER discussed recommendation for patient to have instrumental voice evaluation (e.g. videostroboscopy) with voice treatment if indicated. Patient expressed he has been content with the way his voice sounds, as it has been this way for a long time, and does not think he is interested in seeing a voice therapist at this time. The following compensatory strategies and/or therapeutic exercises will be part of the upcoming therapy/management plan: Additional Swallow(s) per [facility] Goals: ? The patient and/or family will participate in further education for swallowing goals. Short Term Goals: ? Guidelines - The patient will comply with/recall the following guidelines/strategies 100% of the time with no cuing: [facility] Volume Change, Rate of Ingestion Change, Additional Swallow(s) per [facility], No Straws. ? Education - The patient will verbalize/demonstrate understanding of the results of this evaluation, the above recommendations, and the swallowing guidelines. Frequency/Duration: 1-2 f/u Date Range for Service Requested: Timeline to reassess: PRN Clinician - Supplemental, Miscellaneous Communication: It is important to note MBSS objective studies are snapshots in time and Patient function might vary with factors such as time of day or concomitant medical conditions. For this reason, the final treatment plan for this patient should rest with their medical care team. Additional recommendations should be considered with the totality of the Patient in mind. Assessment & Plan Assessment & Plan (1) Dysphagia: Code(s): R13.10 - Dysphagia, unspecified Category: Medical Qualifiers: Dysphagia type: unspecified Qualified Code(s): R13.10 - Dysphagia, unspecified (2) GERD (gastroesophageal reflux disease): Code(s): K21.9 - Gastro-esophageal reflux disease without esophagitis Qualifiers: Esophagitis presence: esophagitis presence not specified Qualified Code(s): K21.9 - Gastro-esophageal reflux disease without esophagitis (3) Tachycardia: Code(s): R00.0 - Tachycardia, unspecified Plan Patient will be sent down with medical charge entry specialist to ED for further evaluation of his tachycardia. Possible AFib. Patient will need EKG, CBC, BMC, thyroid study. Discussed with patient that he should take pantoprazole daily as it only works when is taken daily. Spoke with provider in the ED. Report given. Coding Level of Care Code Est Pt Level 5 (27815) Complex EM visit Add On G2211 Diagnoses Dysphagia, unspecified type R13.10 Dysphagia type: unspecified Gastroesophageal reflux disease, unspecified whether esophagitis present K21.9 Esophagitis presence: esophagitis presence not specified Tachycardia R00.0 Time Spent (min) 30 Comment 20 minutes spent with patient and additional 10 minutes spent reviewing his records
[2024-12-21 10:20] VITALS: BP 120/84; PULSE 144; O2SAT 97; BMI 28.7
--- OUTSIDE RECORDS SUMMARY | 2024-12-21 11:47 | XMS_ITS | Encounter Summary ---
Author Organization [facility] Address [address] [facility] [address] [place] [address] Phone Care Team Providers Care Senior Construction Estimator Name Role Phone Aaliyah Smith MD Primary Care Provider [phone] Sudhakar Curtis MD Unavailable [phone] Aaliyah Smith MD Primary Care Provider [phone] Encounter Details Date Type Department Care Team (Late st Contact Info) Description 11/29/2020 Procedure Pass [address] [address] Social History Tobacco Use Types Packs/Day Years [...] st Contact Info) Description 02/20/2024 Procedure Pass [facility] Radiology [address] [place] [address] 02/25/2025 2:00 PM EST Appointment [facility] [address] [place] [address] Benji Hardwick MD, MPH [address] [facility] [address] [place] [address] [email or web address] 02/25/2025 2:30 PM EST Appointment [facility] Pulmonary Function Lab [address] [place] [address] Benji Hardwick MD, MPH [address] [place] [address] [email or web address] 02/25/2025 3:40 PM EST Office Visit [facility] Diseases [address] [place] [address] Benji Hardwick MD, MPH [address] [place] [phone] [email or web address] 03/19/2025 9:40 AM EST Office Visit [facility] [address] [place] [address] Tanisha Rajan MD [address] [place] [address] [email or web address] documented as of this encounter Visit Diagnoses Not on filedocumented in this encounter Care Teams Senior Construction Estimator Relationship Specialty Start Date End Date Aaliyah Smith MD PCP - General Internal Medicine 01/01/18 07/10/23 Aaliyah Smith MD PCP - General Internal Medicine 11/14/23 Sudhakar Curtis MD [address] [place] [address] [email or web address] Surgery 12/21/22 documented as of this encounter Additional Source Comments The information contained in this document represents components of the legal health record. It is not the complete legal health record.[facility]
--- OUTSIDE RECORDS SUMMARY | 2024-12-21 11:48 | XMS_ITS | Encounter Summary ---
Author Organization [employer] Address [address] [facility] 7t [place] [address] Care Team Providers Care Trial Attorney Name Role Phone Unavailable Primary Care Provider Unavailabl e Encounter Details Date Type Department Care Team (Latest Contact Info) Description 03/18/2018 Abstract [facility] CONVERSIONS Dental, Provider, DDS Social History Tobacco [...]
--- OUTSIDE RECORDS SUMMARY | 2024-12-21 11:48 | XMS_ITS | Clinical Summary ---
Author Organization [facility] Address [address] [place], [place] [id number] Care Team Providers Care Building Custodial Supervisor Name Role Phone Aaliyah Carrillo MD Primary Care Provider [phone] Allergies No known active allergies Medications Medication [...] age to complete this topic Care Teams Building Custodial Supervisor Relationship Specialty Start Date End Date Aaliyah Carrillo MD PCP - General Internal Medicine 08/24/19
--- OUTSIDE RECORDS SUMMARY | 2024-12-21 11:48 | XMS_ITS | Encounter Summary ---
Author Organization [facility] Address [address] [place] [address] Phone Care Team Providers Care Manager Assisted Living Name Role Phone Aaliyah Smith MD Primary Care Provider [phone] Sudhakar Curtis MD Unavailable [phone] Aaliyah Smith MD Primary Care Provider [phone] Encounter Details Date Type Department Care Team (Latest Contact Info) Description 11/21/2020 Prep for Surgery [facility] Department of Orthopaedics [address] [place] [address] Sudhakar Curtis MD [address] [place] [address] [email or web address] Spondylolisthesis of lumbar region (Primary Dx); Lumbar [...] st Contact Info) Description 02/20/2024 Procedure Pass [facility] Radiology [address] [place] [address] 02/25/2025 2:00 PM EST Appointment [facility] [address] [place] [address] Benji Hardwick MD, MPH [address] [place] [phone] [email or web address] 02/25/2025 2:30 PM EST Appointment [facility] Pulmonary Function Lab [address] [place] [address] Benji Hardwick MD, MPH [address] [place] [phone] [email or web address] 02/25/2025 3:40 PM EST Office Visit [facility] for Chest Diseases [address] [place] [address] Benji Hardwick MD, MPH [address] [place] [phone] [email or web address] 03/19/2025 9:40 AM EST Office Visit [facility] [address] [place] [address] Tanisha Rajan MD [address] [place] [address] [email or web address] documented as of this encounter Results * Type and Screen (ABO,Rh,Antibody Screen) (12/23/2020 11:15 AM EDT) Expiration Date of Sample 01/20/2021 11:59 PM 12/23/2020 1:14 PM EDT [facility] Resulting Agency [facility] ABO Type O 12/23/2020 1:14 PM EDT [facility] Rh Type Positive 12/23/2020 1:14 PM EDT [facility] Antibody Screen Negative 12/23/2020 1:14 PM EDT [facility] 12/23/2020 11:1 5 AM EDT 12/23/2020 12:02 PM EDT us Sudhakar Curtis MD LAB BLOOD BANK TEST ORDER CH[place]IS Final Result [facility] [address] [place] [address] documented in this encounter Visit Diagnoses Diagnosis Spondylolisthesis of lumbar region- Primary Lumbar stenosis with neurogenic claudication Lumbar radiculopathy Thoracic or lumbosacral neuritis or radiculitis, unspecified documented in this encounter Care Teams Manager Assisted Living Relationship Specialty Start Date End Date Aaliyah Smith MD PCP - General Internal Medicine 01/01/18 07/10/23 Aaliyah Smith MD PCP - General Internal Medicine 11/14/23 Sudhakar Curtis MD [address] [place] [address] [email or web address] Surgery 12/21/22 documented as of this encounter Additional Source Comments The information contained in this document represents components of the legal health record. It is not the complete legal health record.[facility]
--- OUTSIDE RECORDS SUMMARY | 2024-12-21 11:48 | XMS_ITS | Encounter Summary ---
Author Organization [facility] Address [address] [facility] [address] [place] [address] Phone Care Team Providers Care Underwater Hunter Trapper Name Role Phone Aaliyah Smith MD Primary Care Provider [phone] Sudhakar Curtis MD Unavailable [phone] Aaliyah Smith MD Primary Care Provider [phone] Encounter Details Date Type Department Care Team (Late st Contact Info) Description 07/28/2020 Ancillary Orders Virtual Department [address] [place] [address] Tanisha Rajan MD [address] [address] [email or web address] Postsurgical hypothyroidism Social History Tobacco Use Types [...] st Contact Info) Description 02/20/2024 Procedure Pass [facility] [address] [place] [address] 02/25/2025 2:00 PM EST Appointment [facility] [address] [place] [address] Benji Hardwick MD, MPH [address] [facility] [address] [place] [address] [email or web address] 02/25/2025 2:30 PM EST Appointment [facility] Pulmonary Function Lab 15 [place] [address] Benji Hardwick MD, MPH [address] [place] [phone] [email or web address] 02/25/2025 3:40 PM EST Office Visit [facility] [address] [place] [address] Benji Hardwick MD, MPH [address] [place] [phone] [email or web address] 03/19/2025 9:40 AM EST Office Visit [facility] [address] [place] [address] Tanisha Rajan MD [address] [place] [phone] [email or web address] documented as of this encounter Results * [...] bilateral neck lymph nodes. Tanisha Rajan MD IMG US HEAD/NECK NON T HYROID Final Result documented in this encounter Visit Diagnoses Diagnosis Postsurgical hypothyroidism Postsurgical hypothyroidism documented in this encounter Additional Health Concerns Infection Onset Date Last Indicated Resolved Time CoV-Risk 11/02/2020 11/02/2020 11/12/2020 1:23 AM EDT documented as of this encounter Care Teams Underwater Hunter Trapper Relationship Specialty Start Date End Date Aaliyah Smith MD PCP - General Internal Medicine 01/01/18 07/10/23 Aaliyah Smith MD PCP - General Internal Medicine 11/14/23 Sudhakar Curtis MD [address] [place] [address] [email or web address] Surgery 12/21/22 documented as of this encounter Additional Source Comments The information contained in this document represents components of the legal health record. It is not the complete legal health record.[facility]
--- OUTSIDE RECORDS SUMMARY | 2024-12-21 11:48 | XMS_ITS | Encounter Summary ---
Author Organization [facility] Address [address] [place] [address] Care Team Providers Care Unit Nurse Name Role Phone Aaliyah Smith MD Primary Care Provider Clarice webster [facility], Pcp Primary Care Provider Manuel shore Encounter Details Date Type Department Care Team Description 12/20/2015 Zika Virus Medical Records [address] [place] [address] Abstract, Provider Social History Tobacco Use Types [...] on filedocumented in this encounter Care Teams Unit Nurse Relationship Specialty Start Date End Date Aaliyah Smith MD PCP - General Internal Medicine 01/04/15 09/22/20 Bubba, Pcp PCP - General Internal Medicine 09/23/20 documented as of this encounter
--- OUTSIDE RECORDS SUMMARY | 2024-12-21 11:48 | XMS_ITS | Encounter Summary ---
Author Organization [facility] Address [address] [facility] [address] [place] [address] Phone Care Team Providers Care Engineering Drawings Checker Name Role Phone Aaliyah Smith MD Primary Care Provider [phone] Sudhakar Curtis MD Unavailable [phone] Aaliyah Smith MD Primary Care Provider [phone] Encounter Details Date Type Department Care Team (Late st Contact Info) Description 10/17/2020 Procedure Pass [address] [place] [address] Social History Tobacco Use Types Packs/Day Years [...] st Contact Info) Description 02/20/2024 Procedure Pass [facility] [address] [place] [address] 02/25/2025 2:00 PM EST Appointment [facility] [address] [place] [address] Benji Hardwick MD, MPH [address] [address] [email or web address] 02/25/2025 2:30 PM EST Appointment [facility] Pulmonary Function Lab [address] [place] [address] Benji Hardwick MD, MPH [address] [place] [phone] [email or web address] 02/25/2025 3:40 PM EST Office Visit [facility] Center for [facility] Diseases [address] [place] [address] Benji Hardwick MD, MPH [address] [place] [phone] [email or web address] 03/19/2025 9:40 AM EST Office Visit [facility] [address] [place] [address] Tanisha Rajan MD [address] [place] [phone] [email or web address] documented as of this encounter Visit Diagnoses Not on filedocumented in this encounter Additional Health Concerns Infection Onset Date Last Indicated Resolved Time CoV-Risk 11/02/2020 11/02/2020 11/12/2020 1:23 AM EDT documented as of this encounter Care Teams Engineering Drawings Checker Relationship Specialty Start Date End Date Aaliyah Smith MD PCP - General Internal Medicine 01/01/18 07/10/23 Aaliyah Smith MD PCP - General Internal Medicine 11/14/23 Sudhakar Curtis MD [address] [place] [phone] [email or web address] Surgery 12/21/22 documented as of this encounter Additional Source Comments The information contained in this document represents components of the legal health record. It is not the complete legal health record.[facility]
--- OUTSIDE RECORDS SUMMARY | 2024-12-21 11:48 | XMS_ITS | Encounter Summary ---
Author Organization [facility] Address [address] [facility] [address] [place] [address] Phone Care Team Providers Care Assistant Manager Retail Name Role Phone Tanisha Rajan MD Primary Care Provider Aaliyah Smith MD Primary Care Provider Sudhakar Curtis MD Unavailable [phone] Aaliyah Smith MD Primary Care Provider Encounter Details Date Type Department Care Team (Late st Contact Info) Description 06/17/2017 Transcribe Orders [address] [phone] Tanisha Rajan MD [address] [place] [address] [email or web address] Hypothyroidism following radioiodine therapy (Primary Dx); Malignant [...] Info) Description 02/20/2024 Procedure Pass [facility] [address] [place] [address] 02/25/2025 2:00 PM EST Appointment [facility] [address] [place] [address] Benji Hardwick MD, MPH [address] [place] [address] [email or web address] 02/25/2025 2:30 PM EST Appointment [facility] Pulmonary Function Lab [address] [place] [address] Benji Hardwick MD, MPH [address] [place] [address] [email or web address] 02/25/2025 3:40 PM EST Office Visit [facility] [address] [place] [address] Benji Hardwick MD, MPH [address] [place] [phone] [email or web address] 03/19/2025 9:40 AM EST Office Visit [facility] [address] [place] [address] Tanisha Rajan MD [address] [place] [address] [email or web address] documented as of this encounter Results * Thyroglobulin antibodies (06/17/2017 1:31 PM EDT) THYROGLOBULIN ANTIBODY, S <1.8 <4.0 IU/mL [facility] Comment: (NOTE) ADDITIONAL INFORMATION The thyroglobulin antibody testing method is an immunoenzymatic assay manufactured by [employer] and performed on the [employer] DXI 800. Values obtained from different assay methods or kits may be different and cannot be used interchangeably. The results cannot be interpreted as absolute evidence for the presence or absence of malignant disease. Blood 06/17/2017 1:31 PM EDT 06/17/2017 1:32 PM EDT us Tanisha Rajan MD LAB BLOOD ORDERABLES F inal Result [facility] [address] [place] [address] * (ABNORMAL) Thyroglobulin, Tumor Marker (06/17/2017 1:31 PM EDT) THYROGLOBULIN 3.1(H) ng/mL [facility] Comment: (NOTE) REFERENCE VALUE Athyrotic <0.1 Intact Thyroid <=33 THYROGLOBULIN AB <1.8 <4.0 IU/mL [facility] [place] THYROGLOBULIN INTRP SEE NOTE [facility] Comment: (NOTE) Thyroglobulin (Tg) [...] testing methods are immunoenzymatic assays manufactured by [employer] and performed on the [employer] DXI 800. Values obtained from different assay methods or kits may be different and cannot be used interchangeably. The results cannot be interpreted as absolute evidence for the presence or absence of malignant disease. Blood 06/17/2017 1:31 PM EDT 06/17/2017 1:32 PM EDT us Tanisha Rajan MD LAB BLOOD ORDERABLES F inal Result [facility] [address] [place] [address] * (ABNORMAL) TSH with reflex (06/17/2017 1:31 PM EDT) TSH 0.09(L) 0.27 - 4.20 uIU/mL [facility] Blood 06/17/2017 1:31 PM EDT 06/17/2017 1:33 PM EDT us Tanisha Rajan MD LAB BLOOD BKR ORDERABL ES Final Result Performing Organization Address City/[facility] Co de Phone Number [facility] [address] [place] [address] documented in this encounter Visit Diagnoses Diagnosis Hypothyroidism following radioiodine therapy- Primary Other postablative hypothyroidism Malignant neoplasm of thyroid gland documented in this encounter Additional Health Concerns Infection Onset Date Last Indicated Resolved Time CoV-Risk 11/02/2020 11/02/2020 11/12/2020 1:23 AM EDT documented as of this encounter Care Teams Assistant Manager Retail Relationship Specialty Start Date End Date Tanisha Rajan MD [address] [address] [email or web address] PCP - General Endocrinology 06/13/17 12/31/17 Aaliyah Smith MD [address] [address] PCP - General Internal Medicine 01/01/18 07/10/23 Aaliyah Smith MD [address] [address] PCP - General Internal Medicine 11/14/23 Sudhakar Curtis MD [address] [place] [address] [email or web address] Orthopedic Surgery 12/21/22 documented as of this encounter Additional Source Comments The information contained in this document represents components of the legal health record. It is not the complete legal health record.[facility]
--- OUTSIDE RECORDS SUMMARY | 2024-12-21 11:48 | XMS_ITS | Encounter Summary ---
Author Organization [facility] Address [address] [facility] [address] [place] [address] Phone Care Team Providers Care Arts Manager Name Role Phone Aaliyah Smith MD Primary Care Provider [phone] Sudhakar Curtis MD Unavailable [phone] Aaliyah Smith MD Primary Care Provider + [phone] Encounter Details Date Type Department Care Team (Late Contact Info) Description 12/20/2020 Procedure Pass [facility] Echocardiography [address] [place] [address] Social History Tobacco Use Types Packs/Day Years [...] (Late Contact Info) Description 02/20/2024 Procedure Pass [facility] [address] [place] [address] 02/25/2025 2:00 PM EST Appointment [facility] Radiology [address] [place] [address] Benji Hardwick MD, MPH [address] [address] [email or web address] 02/25/2025 2:30 PM EST Appointment [facility] Pulmonary Function Lab 15 [place] [address] Benji Hardwick MD, MPH [address] [place] [address] [email or web address] 02/25/2025 3:40 PM EST Office Visit [facility] Diseases [address] [place] [address] Benji Hardwick MD, MPH [address] [place] [address] [email or web address] 03/19/2025 9:40 AM EST Office Visit [facility] [address] [place] [address] Tanisha Rajan MD [address] [place] [address] [email or web address] documented as of this encounter Visit Diagnoses Not on filedocumented in this encounter Care Teams Arts Manager Relationship Specialty Start Date End Date Aaliyah Smith MD PCP - General Internal Medicine 01/01/18 07/10/23 Aaliyah Smith MD PCP - General Internal Medicine 11/14/23 Sudhakar Curtis MD [address] [place] [address] [email or web address] Orthopedic Surgery 12/21/22 documented as of this encounter Additional Source Comments The information contained in this document represents components of the legal health record. It is not the complete legal health record.[facility]
--- OUTSIDE RECORDS SUMMARY | 2024-12-21 11:48 | XMS_ITS | Encounter Summary ---
Author Organization [facility] Address [address] [facility] [address] [place] [address] Phone Care Team Providers Care Regional Director Name Role Phone Aaliyah Smith MD Primary Care Provider [phone] Sudhakar Curtis MD Unavailable [phone] Aaliyah Smith MD Primary Care Provider + [phone] Encounter Details Date Type Department Care Team (Late st Contact Info) Description 10/17/2020 Procedure Pass [address] [place] [address] Social History Tobacco Use Types Packs/Day Years [...] st Contact Info) Description 02/20/2024 Procedure Pass [facility] [address] [place] [address] 02/25/2025 2:00 PM EST Appointment [facility] [address] [place] [address] Benji Hardwick MD, MPH [address] [address] [email or web address] 02/25/2025 2:30 PM EST Appointment [facility] Pulmonary Function Lab [address] [place] [address] Benji Hardwick MD, MPH [address] [place] [address] [email or web address] 02/25/2025 3:40 PM EST Office Visit [facility] for Chest Diseases 15 [place] [address] Benji Hardwick MD, MPH [address] [place] [phone] [email or web address] 03/19/2025 9:40 AM EST Office Visit [facility] [address] [place] [address] Tanisha Rajan MD [address] [place] [address] [email or web address] documented as of this encounter Visit Diagnoses Not on filedocumented in this encounter Additional Health Concerns Infection Onset Date Last Indicated Resolved Time CoV-Risk 11/02/2020 11/02/2020 11/12/2020 1:23 AM EDT documented as of this encounter Care Teams Regional Director Relationship Specialty Start Date End Date Aaliyah Smith MD PCP - General Internal Medicine 01/01/18 07/10/23 Aaliyah Smith MD PCP - General Internal Medicine 11/14/23 Sudhakar Curtis MD [address] [place] [address] [email or web address] Orthopedic Surgery 12/21/22 documented as of this encounter Additional Source Comments The information contained in this document represents components of the legal health record. It is not the complete legal health record.[facility]
--- OUTSIDE RECORDS SUMMARY | 2024-12-21 11:48 | XMS_ITS | Encounter Summary ---
Author Organization [facility] Address [address] [facility] [address] [place] [address] Phone Care Team Providers Care Kiln Car Repairer Name Role Phone Tanisha Rajan MD Primary Care Provider Aalyiah Smith MD Primary Care Provider [phone] Sudhakar Curtis MD Unavailable [phone] Aaliyah Smith MD Primary Care Provider Encounter Details Date Type Department Care Team (Late st Contact Info) Description 11/29/2017 Ancillary Orders Virtual Department [address] [place] [address] Tanisha Rajan MD [address] [address] [email or web address] Thyroid cancer Social History Tobacco Use Types [...] Procedure Pass [facility] [address] [place] [address] 02/25/2025 2:00 PM EST Appointment [facility] [address] [place] [address] Benji Hardwick MD, MPH [address] [address] [email or web address] 02/25/2025 2:30 PM EST Appointment [facility] Pulmonary Function Lab 15 [place] [address] Benji Hardwick MD, MPH [address] [place] [address] [email or web address] 02/25/2025 3:40 PM EST Office Visit [facility] 15 [place] [address] Benji Hardwick MD, MPH [address] [place] [phone] [email or web address] 03/19/2025 9:40 AM EST Office Visit [facility] [address] [place] [address] Tanisha Rajan MD [address] [place] [address] [email or web address] documented as of this encounter Results * [...] formetastatic disease. POS [id number] Tanisha Rajan MD [facility] US HEAD/NECK NON T HYROID Final Result documented in this encounter Visit Diagnoses Diagnosis Thyroid cancer Malignant neoplasm of thyroid gland Thyroid cancer Malignant neoplasm of thyroid gland documented in this encounter Additional Health Concerns Infection Onset Date Last Indicated Resolved Time CoV-Risk 11/02/2020 11/02/2020 11/12/2020 1:23 AM EDT documented as of this encounter Care Teams Kiln Car Repairer Relationship Specialty Start Date End Date Tanisah Rajan MD [address] [place], [place] [phone] [email or web address] PCP - General Endocrinology 06/13/17 12/31/17 Aaliyah Smith MD [address] [place] [address] PCP - General Internal Medicine 01/01/18 07/10/23 Aalyiah Smith MD [address] [place] [address] PCP - General Internal Medicine 11/14/23 Sudhakar Curtis MD [address] [place] [address] [email or web address] Orthopedic Surgery 12/21/22 documented as of this encounter Additional Source Comments The information contained in this document represents components of the legal health record. It is not the complete legal health record.[facility]
--- OUTSIDE RECORDS SUMMARY | 2024-12-21 11:48 | XMS_ITS | Clinical Summary ---
Author Organization [employer] Address [address] [facility] 7t [place] [address] Care Team Providers Care Warehouse Picker Name Role Phone Unavailable Primary Care Provider [...]
--- OUTSIDE RECORDS SUMMARY | 2024-12-21 11:48 | XMS_ITS | Encounter Summary ---
Author Organization [facility] Address [address] [facility] [address] [place] [address] Phone Care Team Providers Care Ladle Repairman Name Role Phone Tanisha Rajan MD Primary Care Provider Aaliyah Smith MD Primary Care Provider Sudhakar Curtis MD Unavailable [phone] Aaliyah Smith MD Primary Care Provider Encounter Details Date Type Department Care Team (Late st Contact Info) Description 06/13/2017 Ancillary Orders Virtual Department [address] [place] [address] [phone] Tanisha Rajan MD [address] [address] [email or web address] Thyroid cancer Social History Tobacco [...] Procedure Pass [facility] 75 [place] [address] 02/25/2025 2:00 PM EST Appointment [facility] 75 [place] [address] Benji Hardwick MD, MPH [address] [address] [email or web address] 02/25/2025 2:30 PM EST Appointment [facility] Pulmonary Function Lab 15 [place] [address] Benji Hardwick MD, MPH [address] [place] [phone] [email or web address] 02/25/2025 3:40 PM EST Office Visit [facility] 15 [place] [address] Benji Hardwick MD, MPH [address] [place] [address] [email or web address] 03/19/2025 9:40 AM EST Office Visit [facility] [address] [place] [address] Tanisha Rajan MD [address] [place] [address] [email or web address] documented as of this encounter Results * [...] the neck POS [id number] Tanisha Rajan MD IMG US THYROID Final Result documented in this encounter Visit Diagnoses Diagnosis Thyroid cancer Malignant neoplasm of thyroid gland Thyroid cancer Malignant neoplasm of thyroid gland documented in this encounter Additional Health Concerns Infection Onset Date Last Indicated Resolved Time CoV-Risk 11/02/2020 11/02/2020 11/12/2020 1:23 AM EDT documented as of this encounter Care Teams Ladle Repairman Relationship Specialty Start Date End Date Tanisha Rajan MD [address] [address] PCP - General Endocrinology 06/13/17 12/31/17 LuisAaliyah chakraborty MD [address] [address] PCP - General Internal Medicine 01/01/18 07/10/23 Aaliyah Smith MD [address] [place] [address] PCP - General Internal Medicine 11/14/23 Sudhakar Curtis MD [address] [place] [address] [email or web address] Orthopedic Surgery 12/21/22 documented as of this encounter Additional Source Comments The information contained in this document represents components of the legal health record. It is not the complete legal health record.[facility]
--- OUTSIDE RECORDS SUMMARY | 2024-12-21 11:49 | XMS_ITS | Encounter Summary ---
Author Organization [facility] Address [address] [place] [address] [place] [address] Phone Care Team Providers Care Survey Chief Name Role Phone Aaliyah Smith MD Primary Care Provider [phone] Sudhakar Curtis MD Unavailable [phone] Aaliyah Smith MD Primary Care Provider + [phone] Encounter Details Date Type Department Care Team (Late st Contact Info) Description 02/23/2023 Procedure Pass [facility], Ct Scan - [address] [address] Social History Tobacco Use Types Packs/Day Years [...] st Contact Info) Description 02/20/2024 Procedure Pass [facility] Radiology 75 [place] [address] 02/25/2025 2:00 PM EST Appointment [facility] Radiology [address] [place] [address] Benji Hardwick MD, MPH [address] [place] [phone] [email or web address] 02/25/2025 2:30 PM EST Appointment [facility] Pulmonary Function Lab [address] [place] [address] Benji Hardwick MD, MPH [address] [place] [phone] [email or web address] 02/25/2025 3:40 PM EST Office Visit [facility] [address] [place] [address] Benji Hardwick MD, MPH [address] [place] [phone] [email or web address] 03/19/2025 9:40 AM EST Office Visit [facility] [address] [place] [address] Tanisha Rajan MD [address] [place] [address] [email or web address] documented as of this encounter Visit Diagnoses Not on filedocumented in this encounter Additional Health Concerns Assessment Noted Time PHQ-2 Depression Total Score: 0 12/26/19 23 9:51 AM EST documented as of this encounter Care Teams Survey Chief Relationship Specialty Start Date End Date Aaliyah Smith MD PCP - General Internal Medicine 01/01/18 07/10/23 Aaliyah Smith MD PCP - General Internal Medicine 11/14/23 Sudhakar Curtis MD [address] [place] [address] [email or web address] Orthopedic Surgery 12/21/22 documented as of this encounter Additional Source Comments The information contained in this document represents components of the legal health record. It is not the complete legal health record.[facility]
--- OUTSIDE RECORDS SUMMARY | 2024-12-21 11:49 | XMS_ITS | Clinical Summary ---
Author Organization [facility] Address [address] [place] [address] Care Team Providers Care Production Expert Name Role Phone Community, Pcp Primary Care [...] Problems Problem Noted Date Exposure to Agent Stephenson 10/09/2018 Hyperlipidemia 12/25/2015 Colon polyps 09/21/2013 BPH [...] 76 01/05/2020 1:55 PM EST Temperature 36.6 C (97.8 F) 01/05/2020 1:55 PM EST Respiratory Rate 16 01/05/2020 1:55 PM EST [...] , 10/09/2018 (Completed), Additional history exists INFLUENZA (#1) 2024 12/28/2016, 12/11/2013 CHOLESTEROL SCREENING 01/04/2025 01/05/2020 , 10/09/2018, 08/09/2017, Additional history exists HEPATITIS C SCREENING Completed 09/21/2013 PNEUMOCOCCAL VACCINE Completed 02/06/2018, 12/16/19 16 SHINGLES VACCINE Completed 07/17/2018, 03/19/2018 Care Teams Production Expert Relationship Specialty Start Date End Date Community, Pcp PCP - General Internal Medicine 09/23/20
--- OUTSIDE RECORDS SUMMARY | 2024-12-21 11:49 | XMS_ITS | Encounter Summary ---
Author Organization [facility] Address [address] [place] [address] Care Team Providers Care Home Service Consultant Name Role Phone Aaliyah Smith MD Primary Care Provider Clarice Mac, Pcp Primary Care Provider Manuel shore Encounter Details Date Type Department Care Team Description 01/05/2020 Telephone Medicine/Pediatrics - [address] [phone] Ary Kahn PA-C [address] [place] [address] Social History Tobacco Use Types Packs/Day Years [...] Johnson M.A. - 01/08/2020 1:49 PM EST [phone] lvm for pt to return call. * Telephone Encounter - Maria De Jesus Ragland - 01/07/2020 4:48 PM EST Pt reurned call please call back at [phone] * Telephone Encounter - Jeanie To M.A. [...] on filedocumented in this encounter Care Teams Home Service Consultant Relationship Specialty Start Date End Date Aaliyah Smith MD PCP - General Internal Medicine 01/04/15 09/22/20 [facility], Pcp PCP - General Internal Medicine 09/23/20 documented as of this encounter
--- OUTSIDE RECORDS SUMMARY | 2024-12-21 11:49 | XMS_ITS | Encounter Summary ---
Author Organization [facility] Address [address] [place] [address] [place] [address] Phone Care Team Providers Care Car Inspection And Repair Manager Name Role Phone Aaliyah Smith MD Primary Care Provider + [phone] Sudhakar Curtis MD Unavailable [phone] Aaliyah Smith MD Primary Care Provider + [phone] Encounter Details Date Type Department Care Team (Late st Contact Info) Description 12/18/2022 Procedure Pass [employer], [address] [address] Social History Tobacco Use Types Packs/Day Years [...] st Contact Info) Description 02/20/2024 Procedure Pass [facility] Radiology 75 [place] [address] 02/25/2025 2:00 PM EST Appointment [facility] Radiology [address] [place] [address] Benji Hardwick MD, MPH [address] [place] [phone] [email or web address] 02/25/2025 2:30 PM EST Appointment [facility] Pulmonary Function Lab [address] [place] [address] Benji Hardwick MD, MPH [address] [place] [phone] [email or web address] 02/25/2025 3:40 PM EST Office Visit [facility] for Chest Diseases [address] [place] [address] Benji Hardwick MD, MPH [address] [place] [phone] [email or web address] 03/19/2025 9:40 AM EST Office Visit [facility] [address] [place] [address] Tanisha Rajan MD [address] [place] [address] [email or web address] documented as of this encounter Visit Diagnoses Not on filedocumented in this encounter Additional Health Concerns Assessment Noted Time PHQ-2 Depression Total Score: 0 12/26/19 23 9:51 AM EST documented as of this encounter Care Teams Car Inspection And Repair Manager Relationship Specialty Start Date End Date Aaliyah Smith MD PCP - General Internal Medicine 01/01/18 07/10/23 Aaliyah Smith MD PCP - General Internal Medicine 11/14/23 Sudhakar Curtis MD [address] [place] [address] [email or web address] Surgery 12/21/22 documented as of this encounter Additional Source Comments The information contained in this document represents components of the legal health record. It is not the complete legal health record.[facility]
--- OUTSIDE RECORDS SUMMARY | 2024-12-21 11:49 | XMS_ITS | Encounter Summary ---
Author Organization [facility] Address [address] [place] [address] Care Team Providers Care Customer Success Representative Name Role Phone Ricky West MD Primary Care Provider Aaliyah Jefferson MD Primary Care Provider Clarice Mac, Pcp Primary Care Provider Manuel shore Encounter Details Date Type Department Care Team Description 06/18/2014 Tape Recorder Mechanic Report Medical Records [address] [place] [address] Milo Park MD Social History Tobacco Use [...] on filedocumented in this encounter Care Teams Customer Success Representative Relationship Specialty Start Date End Date Ricky West MD PCP - General Internal Medicine 01/02/13 01/03/15 Aaliyah Smith MD PCP - General Internal Medicine 01/04/15 09/22/20 [facility], Pcp PCP - General Internal Medicine 09/23/20 documented as of this encounter
--- OUTSIDE RECORDS SUMMARY | 2024-12-21 11:49 | XMS_ITS | Encounter Summary ---
Author Organization [facility] Address [address] [place] [address] [place] [address] Phone Care Team Providers Care Caustic Room Attendant Name Role Phone Aaliyah Smith MD Primary Care Provider + [phone] Sudhakar Curtis MD Unavailable [phone] Aaliyah Smith MD Primary Care Provider + [phone] Reason for Referral * MRI/CAT Scan - Closed Specialty Diagnoses / Procedures Referred By Contac t Referred To Contact Radiology Diagnoses DDD (degenerative disc disease), lumbar Lumbar radiculopathy Foraminal stenosis of lumbar region Procedures CT Lumbar Spine Edin Ibrahim PA Phone: tel: fax: Referral ID Status Reason Start Date Expiration Date Visits Re quested Visits Authorized [id number] Closed 02/23/2023 1 1 Encounter Details Date Type Department Care Team (Latest Contact Info) Description 02/23/2023 Transcribe Orders Virtual Department [address] [place] [address] Edin Ibrahim PA [address] [place] [address] DDD (degenerative disc disease), lumbar (Primary Dx); [...] st Contact Info) Description 02/20/2024 Procedure Pass [facility] [address] [place] [address] 02/25/2025 2:00 PM EST Appointment [facility] [address] [place] [address] Benji Hardwick MD, MPH [address] [place] [phone] [email or web address] 02/25/2025 2:30 PM EST Appointment [facility] Pulmonary Function Lab [address] [place] [address] Benji Hardwick MD, MPH [address] [place] [phone] [email or web address] 02/25/2025 3:40 PM EST Office Visit [facility] [address] [place] [address] Benji Hardwick MD, MPH [address] [place] [address] [email or web address] 03/19/2025 9:40 AM EST Office Visit [facility] [address] [place] [address] [place] [address] Tanisha Rajan MD [address] [place] [address] [email or web address] documented as of this encounter Results * [...] documented as of this encounter Care Teams Caustic Room Attendant Relationship Specialty Start Date End Date Aaliyah Smith MD PCP - General Internal Medicine 01/01/18 07/10/23 Aaliyah Smith MD PCP - General Internal Medicine 11/14/23 Sudhakar Curtis MD [address] [place] [address] [email or web address] Orthopedic Surgery 12/21/22 documented as of this encounter Additional Source Comments The information contained in this document represents components of the legal health record. It is not the complete legal health record.[facility]
--- OUTSIDE RECORDS SUMMARY | 2024-12-21 11:49 | XMS_ITS | Encounter Summary ---
Author Organization [facility] Address [address] [facility] [facility] [address] [place] [address] Phone Care Team Providers Care Heat Curer Name Role Phone Aaliyah Smith MD Primary Care Provider Sudhakar Curtis MD Unavailable [phone] Aaliyah Smith MD Primary Care Provider [phone] Encounter Details Date Type Department Care Team (Late st Contact Info) Description 05/14/2023 Ancillary Orders [facility], X-Ray - [facility] [address] [place] [address] Aaliyah Smith MD [address] [place] [address] [phone] Encounter for other preprocedural examination (Primary Dx) [...] st Contact Info) Description 02/20/2024 Procedure Pass [facility] [address] [place] [address] 02/25/2025 2:00 PM EST Appointment [facility] [address] [place] [address] Benji Hardwick MD, MPH [address] [place] [phone] [email or web address] 02/25/2025 2:30 PM EST Appointment [facility] Pulmonary Function Lab [address] [place] [address] Benji Hardwick MD, MPH [address] [place] [phone] [email or web address] 02/25/2025 3:40 PM EST Office Visit [facility] Diseases [address] [place] [address] Benji Hardwick MD, MPH [address] [place] [phone] [email or web address] 03/19/2025 9:40 AM EST Office Visit [facility] [address] [place] [address] Tanisha Rajan MD [address] [place] [address] documented as of this encounter Results * XR CHEST PA AND LATERAL 2 VIEWS (05/14/2023 11:22 AM EDT) Anatomical Region Laterality Modality Chest Computed Radiogr aphy 05/14/2023 2:24 PM EDT Impressions 05/14/2023 2:27 PM EDT No acute findings. Narrative 05/14/2023 2:27 PM EDT XR CHEST PA AND LATERAL 2 VIEWS Referring clinician's provided indication for this examination in [facility]: Pre-Op COMPARISON: 06/19/2022 FINDINGS: Lungs: Clear lungs. Pleura: No pleural effusion. No pneumothorax Heart/Mediastinum: Heart size normal. Bones/Soft Tissues: No acute finding Procedure Note Kyler Harris MD, SIRIA - 05/14/2023 XR CHEST PA AND LATERAL 2 VIEWS Referring clinician's provided indication for this examination in [facility]:Pre-Op COMPARISON: 06/19/2022 FINDINGS: Lungs: Clear lungs. Pleura: [...] documented as of this encounter Care Teams Heat Curer Relationship Specialty Start Date End Date Aaliyah Smith MD PCP - General Internal Medicine 01/01/18 07/10/23 Aaliyah Smith MD PCP - General Internal Medicine 11/14/23 Sudhakar Curtis MD [address] [place] [phone] [email or web address] Surgery 12/21/22 documented as of this encounter Additional Source Comments The information contained in this document represents components of the legal health record. It is not the complete legal health record.[facility]
--- OUTSIDE RECORDS SUMMARY | 2024-12-21 11:49 | XMS_ITS | Encounter Summary ---
Author Organization [facility] Address [address] [facility] [address] [place] [address] Phone Care Team Providers Care Shoe Dresser Name Role Phone Aaliyah Smith MD Primary Care Provider [phone] Sudhakar Curtis MD Unavailable [phone] Aaliyah Smith MD Primary Care Provider [phone] Encounter Details Date Type Department Care Team (Late st Contact Info) Description 08/18/2020 Procedure Pass [address] [address] Social History Tobacco Use Types Packs/Day Years [...] st Contact Info) Description 02/20/2024 Procedure Pass [facility] [address] [place] [address] 02/25/2025 2:00 PM EST Appointment [facility] [address] [place] [address] Benji Hardwick MD, MPH [address] [place] [address] [email or web address] 02/25/2025 2:30 PM EST Appointment [facility] Pulmonary Function Lab [address] [place] [address] Benji Hardwick MD, MPH [address] [place] [phone] [email or web address] 02/25/2025 3:40 PM EST Office Visit [facility] Diseases [address] [place] [address] Benji Hardwick MD, MPH [address] [place] [phone] [email or web address] 03/19/2025 9:40 AM EST Office Visit [facility] [address] [place] [address] Tanisha Rajan MD [address] [place] [phone] [email or web address] documented as of this encounter Visit Diagnoses Not on filedocumented in this encounter Additional Health Concerns Infection Onset Date Last Indicated Resolved Time CoV-Risk 11/02/2020 11/02/2020 11/12/2020 1:23 AM EDT documented as of this encounter Care Teams Shoe Dresser Relationship Specialty Start Date End Date Aaliyah Smith MD PCP - General Internal Medicine 01/01/18 07/10/23 Aaliyah Smith MD PCP - General Internal Medicine 11/14/23 Sudhakar Curtis MD [address] [place] [address] [email or web address] Orthopedic Surgery 12/21/22 documented as of this encounter Additional Source Comments The information contained in this document represents components of the legal health record. It is not the complete legal health record.[facility]
--- OUTSIDE RECORDS SUMMARY | 2024-12-21 11:49 | XMS_ITS | Encounter Summary ---
Author Organization [facility] Address [address] [place] [address] Phone Care Team Providers Care Radiographer Mammographer Name Role Phone Aaliyah Smith MD Primary Care Provider [phone] Sudhakar Curtis MD Unavailable [phone] Aaliyah Smith MD Primary Care Provider + [phone] Encounter Details Date Type Department Care Team (Late st Contact Info) Description 12/25/2022 Procedure Pass [facility] [address] [place] [address] Social History Tobacco Use Types Packs/Day Years [...] st Contact Info) Description 02/20/2024 Procedure Pass [facility]iology [address] [place] [address] 02/25/2025 2:00 PM EST Appointment [facility] [address] [place] [address] Benji Hardwick MD, MPH [address] [place] [phone] [email or web address] 02/25/2025 2:30 PM EST Appointment [facility] Pulmonary Function Lab [address] [place] [address] Benji Hardwick MD, MPH [address] [place] [phone] [email or web address] 02/25/2025 3:40 PM EST Office Visit [facility] Center for Chest Diseases [address] [place] [address] Benji Hardwick MD, MPH [address] [place] [phone] [email or web address] 03/19/2025 9:40 AM EST Office Visit [facility] [address] [place] [address] Tanisha Rajan MD [address] [place] [address] [email or web address] documented as of this encounter Visit Diagnoses Not on filedocumented in this encounter Additional Health Concerns Assessment Noted Time PHQ-2 Depression Total Score: 0 12/26/19 23 9:51 AM EST documented as of this encounter Care Teams Radiographer Mammographer Relationship Specialty Start Date End Date Aaliyah Smith MD PCP - General Internal Medicine 01/01/18 07/10/23 Aaliyah Smith MD PCP - General Internal Medicine 11/14/23 Sudhakar Curtis MD [address] [place] [address] [email or web address] Orthopedic Surgery 12/21/22 documented as of this encounter Additional Source Comments The information contained in this document represents components of the legal health record. It is not the complete legal health record.[facility]
--- OUTSIDE RECORDS SUMMARY | 2024-12-21 11:49 | XMS_ITS | Encounter Summary ---
Author Organization [facility] Address [address] [place] [address] Care Team Providers Care Property Condition Assessor Name Role Phone Ricky West MD Primary Care Provider Aaliyah Jefferson MD Primary Care Provider Clarice Mac, Pcp Primary Care Provider Manuel shore Encounter Details Date Type Department Care Team Description 11/29/2011 Hospital Medical Records [address] [place] [address] Oniel Javier MD Social History Tobacco Use [...] on filedocumented in this encounter Care Teams Property Condition Assessor Relationship Specialty Start Date End Date Ricky West MD PCP - General Internal Medicine 01/02/13 01/03/15 Aaliyah Smith MD PCP - General Internal Medicine 01/04/15 09/22/20 Bubba, Pcp PCP - General Internal Medicine 09/23/20 documented as of this encounter
--- OUTSIDE RECORDS SUMMARY | 2024-12-21 11:49 | XMS_ITS | Encounter Summary ---
Author Organization [facility] Address [address] [place] [address] Care Team Providers Care Orthopaedic General Name Role Phone Aaliyah Smith MD Primary Care Provider Clarice webster [facility], Pcp Primary Care Provider Manuel shore Encounter Details Date Type Department Care Team Description 11/07/2019 [facility] Medical Records [address] [place] [address] Abstract, Provider Social History Tobacco Use Types [...] on filedocumented in this encounter Care Teams Orthopaedic General Relationship Specialty Start Date End Date Aaliyah Smith MD PCP - General Internal Medicine 01/04/15 09/22/20 Bubba, Pcp PCP - General Internal Medicine 09/23/20 documented as of this encounter
--- OUTSIDE RECORDS SUMMARY | 2024-12-21 11:49 | XMS_ITS | Encounter Summary ---
Author Organization [facility] Address [address] [facility] [address] [place] [address] Phone Care Team Providers Care Lab Support Service Tech Name Role Phone Aaliyah Smith MD Primary Care Provider Sudhakar Curtis MD Unavailable [phone] Aaliyah Smith MD Primary Care Provider [phone] Encounter Details Date Type Department Care Team (Late st Contact Info) Description 01/24/2021 Transcribe Orders Virtual Department [address] [place] [address] Aaliyah Smith MD [address] [place] [address] Chest wall mass (Primary Dx) Social History [...] Procedure Pass [facility] [address] [place] [address] 02/25/2025 2:00 PM EST Appointment [facility] [address] [place] [address] Benji Hardwick MD, MPH [address] [address] [email or web address] 02/25/2025 2:30 PM EST Appointment [facility] Pulmonary Function Lab [address] [place] [address] Benji Hardwick MD, MPH [address] [address] [email or web address] 02/25/2025 3:40 PM EST Office Visit [facility] Center for Chest Diseases [address] [place] [address] Benji Hardwick MD, MPH [address] [place] [phone] [email or web address] 03/19/2025 9:40 AM EST Office Visit [facility] [address] [place] [address] Tanisha Rajan MD [address] [place] [address] [email or web address] documented as of this encounter [...] consistent with sebaceous cyst. Aaliyah Smith MD G US CHEST Final Result documented in this encounter Visit Diagnoses Diagnosis Chest wall mass- Primary Swelling, mass, or lump in chest Chest wall mass Swelling, mass, or lump in chest documented in this encounter Additional Health Concerns Assessment Noted Time PHQ-2 Depression Total Score: 0 01/12/20 21 10:23 AM EST documented as of this encounter Care Teams Lab Support Service Tech Relationship Specialty Start Date End Date Aaliyah Smith MD PCP - General Internal Medicine 01/01/18 07/10/23 Aaliyah Smith MD PCP - General Internal Medicine 11/14/23 Sudhakar Curtis MD [address] [place] [address] [email or web address] Surgery 12/21/22 documented as of this encounter Additional Source Comments The information contained in this document represents components of the legal health record. It is not the complete legal health record.[facility]
--- OUTSIDE RECORDS SUMMARY | 2024-12-21 11:49 | XMS_ITS | Encounter Summary ---
Author Organization [facility] Address [address] [place] [address] Care Team Providers Care Delicatessen Store Manager Name Role Phone Aaliyah Smith MD Primary Care Provider Clarice webster [facility], Pcp Primary Care Provider Manuel shore Encounter Details Date Type Department Care Team Description 01/15/2018 Cashier Or Checker Stock Clerk Report Medical Records [address] [place] [address] Tanisha Rajan MD Social History Tobacco Use [...] on filedocumented in this encounter Care Teams Delicatessen Store Manager Relationship Specialty Start Date End Date Aaliyah Smith MD PCP - General Internal Medicine 01/04/15 09/22/20 Bubba, Pcp PCP - General Internal Medicine 09/23/20 documented as of this encounter
--- OUTSIDE RECORDS SUMMARY | 2024-12-21 11:49 | XMS_ITS | Encounter Summary ---
Author Organization [facility] Address [address] [facility] [address] [place] [address] Phone Care Team Providers Care Cream Cheese Maker Name Role Phone Aaliyah Smith MD Primary Care Provider Sudhakar Curtis MD Unavailable [phone] Aaliyah Smith MD Primary Care Provider Encounter Details Date Type Department Care Team (Late st Contact Info) Description 2018 Transcribe Orders [facility] Main [address] [place] [address] Tanisha Rajan MD [address] [address] [email or web address] Postsurgical hypothyroidism [...] Procedure Pass [facility] [address] [place] [address] 02/25/2025 2:00 PM EST Appointment [facility] [address] [place] [address] Benji Hardwick MD, MPH 15 [facility] [address] [place] [address] [email or web address] 02/25/2025 2:30 PM EST Appointment [facility] Pulmonary Function Lab [address] [place] [address] Benji Hardwick MD, MPH [address] [place] [phone] [email or web address] 02/25/2025 3:40 PM EST Office Visit [facility] [address] [place] [address] Benji Hardwick MD, MPH [address] [place] [address] [email or web address] 03/19/2025 9:40 AM EST Office Visit [facility] [address] [place] [address] Tanisha Rajan MD [address] [place] [address] [email or web address] documented as of this encounter Results * (ABNORMAL) Thyroglobulin, Tumor Marker (2018 1:40 PM EST) THYROGLOBULIN 2.4(H) ng/mL [facility] Comment: (NOTE) REFERENCE VALUE Athyrotic <0.1 Intact Thyroid <=33 THYROGLOBULIN AB <1.8 <4.0 IU/mL [facility] THYROGLOBULIN INTRP SEE NOTE [facility] Comment: (NOTE) Thyroglobulin [...] testing methods are immunoenzymatic assays manufactured by [employer]. and performed on the [employer] DXI 800. Values obtained from different assay methods or kits may be different and cannot be used interchangeably. The results cannot be interpreted as absolute evidence for the presence or absence of malignant disease. Blood 2018 1:40 PM EST 2018 1:43 PM EST Tanisha Rajan MD LAB BLOOD ORDERABLES F inal Result [facility] [place] [address] * (ABNORMAL) TSH with reflex (2018 1:40 PM EST) TSH 0.10(L) 0.27 - 4.20 uIU/mL [facility] Blood 2018 1:40 PM EST 2018 1:43 PM EST Tanisha Rajan MD LAB BLOOD BKR ORDERABL ES Final Result Performing Organization Address [facility]/ZIP Co de Phone Number [facility] [address] [place] [address] documented in this encounter Visit Diagnoses Diagnosis Postsurgical hypothyroidism- Primary Thyroid cancer Malignant neoplasm of thyroid gland documented in this encounter Additional Health Concerns Infection Onset Date Last Indicated Resolved Time CoV-Risk 11/02/2020 11/02/2020 11/12/2020 1:23 AM EDT documented as of this encounter Care Teams Cream Cheese Maker Relationship Specialty Start Date End Date Aaliyah Smith MD PCP - General Internal Medicine 01/01/18 07/10/23 Aaliyah Smith MD PCP - General Internal Medicine 11/14/23 Sudhakar Curtis MD [address] [place] [address] [email or web address] Orthopedic Surgery 12/21/22 documented as of this encounter Additional Source Comments The information contained in this document represents components of the legal health record. It is not the complete legal health record.[facility]
--- OUTSIDE RECORDS SUMMARY | 2024-12-21 11:49 | XMS_ITS | Encounter Summary ---
Author Organization [facility] Address [address] [address] [place] [address] Phone Care Team Providers Care Gps Navigation Installer Name Role Phone Aaliyah Smith MD Primary Care Provider [phone] Sabina Curtis MD Unavailable [phone] Aaliyah Smith MD Primary Care Provider [phone] Encounter Details Date Type Department Care Team (Late st Contact Info) Description 11/27/2018 Ancillary Orders Virtual Department [address] [place] [address] Tanisha Rajan MD [address] [address] [email or web address] Thyroid cancer Social History Tobacco Use Types [...] st Contact Info) Description 02/20/2024 Procedure Pass [facility] [address] [place] [address] 02/25/2025 2:00 PM EST Appointment [facility] [address] [place] [address] Benji Hardwick MD, MPH [address] [facility] [address] [place] [address] [email or web address] 02/25/2025 2:30 PM EST Appointment [facility] Pulmonary Function Lab [address] [place] [address] Benji Hardwick MD, MPH [address] [place] [phone] [email or web address] 02/25/2025 3:40 PM EST Office [facility] [address] [place] [address] Benji Hardwick MD, MPH [address] [place] [phone] [email or web address] 03/19/2025 9:40 AM EST Office Visit [facility] [address] [place] [address] Tanisha Rajan MD [address] [place] [address] [email or web address] documented as of this encounter Results * [...] documented as of this encounter Care Teams Gps Navigation Installer Relationship Specialty Start Date End Date Aaliyah Smith MD PCP - General Internal Medicine 01/01/18 07/10/23 Aaliyah Smith MD PCP - General Internal Medicine 11/14/23 Sabina Curtis MD [address] [place] [phone] [email or web address] Surgery 12/21/22 documented as of this encounter Additional Source Comments The information contained in this document represents components of the legal health record. It is not the complete legal health record.[facility]
--- OUTSIDE RECORDS SUMMARY | 2024-12-21 11:49 | XMS_ITS | Encounter Summary ---
Author Organization [facility] Address [address] [place] [address] Care Team Providers Care Irradiated Fuel Handler Name Role Phone Ricky West MD Primary Care Provider Aaliyah Jefferson MD Primary Care Provider Clarice Mac, Pcp Primary Care Provider Manuel shore Encounter Details Date Type Department Care Team Description 01/22/2013 Release of Information Medical Records [address] [place] [id number] Abstract, Provider Social History Tobacco Use Types [...] on filedocumented in this encounter Care Teams Irradiated Fuel Handler Relationship Specialty Start Date End Date Ricky West MD PCP - General Internal Medicine 01/02/13 01/03/15 Aaliyah Smith MD PCP - General Internal Medicine 01/04/15 09/22/20 [facility] PCP - General Internal Medicine 09/23/20 documented as of this encounter
--- OUTSIDE RECORDS SUMMARY | 2024-12-21 11:49 | XMS_ITS | Clinical Summary ---
Author Organization [facility] Address [address] [facility] [address] [place] [address] Phone Care Team Providers Care Cut Off Operator Scorer Name Role Phone Sudhakar Curtis MD Unavailable [phone] Aaliyah Smith MD Primary Care Provider Allergies [...] left for the patient to contact [facility] [employer] that could possibly provide co-payment assistance for the Isma Almaguer ([phone]). Liset Menard RPSGT Problem Noted Date Diagnosed Date Hypocalcemia 08/13/2024 Assessment & Plan (08/13/2024 5:51 PM EDT): Possible pseudogout seen on imaging @ [facility]. No evidence of hypercalcemia/primary hyperparathyroidism. Calcium has [...] cord 12/20 Dysphonia 01/16/2022 Exposure to Agent Eureka 10/09/2018 023 Hyperlipidemia 12/25/2015 06/20/2022 Colon polyps [...] bed only, persistent low level TG (0.2-0.3 2441-9635, 0.7-0.8 5989-4647, 1.2-1.4 1099-9305, 1.8-3.1 8419-4533, 3.9-5.4 5993-4203, 7.2- 9.7 8674-6570), increasing gradually 10 in June 2022; Fall [...] Following rx, persistent low level TG (0.2-0.3 9884-9924, 0.7-0.8 2010- 2012, 1.2-1.4 7607-2020, 1.8-3.1 7262-0843, 3.9-5.4 , 7.2-9.7 ), increasing gradually to [...] Following rx, persistent low level TG (0.2-0.3 5993-3206, 0.7-0.8 2010- 2012, 1.2-1.4 7998-4676, 1.8-3.1 4071-8826, 3.9-5.4 , 7.2-9.7 ), increasing gradually to [...] Following rx, persistent low level TG (0.2-0.3 7298-9364, 0.7-0.8 2010- 2012, 1.2-1.4 6575-5064, 1.8-3.1 3813-0889, 3.9-5.4 , 7.2-9.7 ), increasing gradually to [...] Following rx, persistent low level TG (0.2-0.3 9427-1500, 0.7-0.8 2010- 2012, 1.2-1.4 1344-8171, 1.8-3.1 7665-1180, 3.9-5.4 , 7.2-9.7 ), increasing gradually to [...] within 1-2 weeks. Hearing loss 09/18/1969 06/20/2022 Immunizations Immunization Administration Dates Next Due Pneumococcal [...] st Contact Info) Description 02/20/2024 Procedure Pass [facility] Radiology [address] [place] [address] 02/25/2025 2:00 PM EST Appointment [facility] Radiology [address] [place] [address] Benji Hardwick MD, MPH [address] [place] [address] [email or web address] 02/25/2025 2:30 PM EST Appointment [facility] Pulmonary Function Lab [address] [place] [address] Benji Hardwick MD, MPH [address] [place] [phone] [email or web address] 02/25/2025 3:40 PM EST Office Visit [facility] [address] [place] [address] Benji Hardwick MD, MPH [address] [facility] [address] [place] [address] [email or web address] 03/19/2025 9:40 AM EST Office Visit [facility] [address] [place] [address] Tanisha Rajan MD [address] [place] [address] [email or web address] Health Maintenance Due Date Last Done Comments SMOKING Hx and SMOKELESS TOBACCO SCREENING 01/02/1960 HEPATITIS C SCREENING 1965 RSV VACCINE (1 - 1-dose 75+ series) 2022 Adult Td,Tdap Booster 05/08/2023 05/07/2013, 014 LIPID PANEL 10/10/2023 10/09/2018 INFLUENZA VACCINE (#1) 2024 12/11/2013 COVID-19 VACCINE ( season) 2024 05/11/2020, 04/13/2020 DEPRESSION SCREENING 02/19/2025 02/20/2024 TSH LEVEL 07/10/2025 07/10/2024, 1108/2023, 07/02/2023, Additional history exists ZOSTER VACCINES Completed [...] this topic Medical Devices Implanted Type Area Meteorologist Liaison Device Identifier Shelf Expiration Date Model / [...] EDT) TSH 0.06(L) 0.27 - 4.20 uIU/mL [facility] Blood 07/10/2024 12:1 0 PM EDT 07/10/2024 12:15 PM EDT us Tanisha Rajan MD LAB BLOOD BKR ORDERABL ES Final Result [address] [address] from Last 3 Months or Most Recently Relevant to Health Maintenance Insurance MEDICARE PART A & B [employer] MEDEX SUPPLEMENT [facility] MEDICARE PART A & B Member Subscriber Plan / Payer (Ef fective 2008-Present) Name:Evert Clemons Member ID:[id number] Relation to Subscriber:Self Name:Evert Clemons Subscriber ID:[id number] Payer ID:[id number] Group ID:Not on file Type:Medicare Address: [facility] [employer] [facility] [employer] [facility] [employer] [facility] [address] [place] [address] [place] [address] [employer]OSS MEDEX SUPPLEMENT [facility] Member Subscriber Plan / Payer (Ef fective 2020-Present) Name:Evert Clemons Relation to Subscriber:Self Name:Evert Clemons Payer ID:[id number] (NAIC) Group ID:Not on file Type:Indemnity Address: [facility] OPTUM [id number] [place] [id number] MEDICARE PART A & B [facility] MEDEX SUPPLEMENT [facility] MEDICARE PART A & B [employer] MEDEX SUPPLEMENT Member Subscriber Plan / Payer (Ef fective 2008-Present) Name:Evert Clemons Relation to Subscriber:Self Name:Evert Clemons Payer ID:[id number] (NAIC) Type:Indemnity Address: [address] [facility] Address: [facility] [employer] [address] [place] [address] MEDICARE PART A & B [employer] MEDEX SUPPLEMENT Member Subscriber Plan / Payer (Ef fective 2008-Present) Name:Evert Clemons Relation to Subscriber:Self Name:Evert Clemons Payer ID:[id number] (NAIC) Type:Indemnity Address: [address] MEDICARE PART A & B [employer] MEDEX SUPPLEMENT Member Subscriber Plan / Payer (Ef fective 2008-Present) Name:Evert Clemons Relation to Subscriber:Self Name:Evert Clemons Payer ID:[id number] (NAIC) Type:Indemnity Address: [facility] [id number] MEDICARE PART A & B [facility] MEDEX SUPPLEMENT [facility] MEDICARE PART A & B [employer] MEDEX SUPPLEMENT Member Subscriber Plan / Payer (Ef fective 2008-Present) Name:Evert Clemons Relation to Subscriber:Self Name:Evert Clemons Payer ID:[id number] (NAIC) Type:Indemnity Address: [address] MEDICARE PART A & B [employer] MEDEX SUPPLEMENT [facility] Care Teams Cut Off Operator Scorer Relationship Specialty Start Date End Date Aaliyah Smith MD [address] [place] [address] PCP - General Internal Medicine 11/14/23 Sudhakar Curtis MD [address] [place] [address] [email or web address] Surgery 12/21/22 Additional Source Comments The information contained in this document represents components of the legal health record. It is not the complete legal health record.[facility]
--- OUTSIDE RECORDS SUMMARY | 2024-12-21 11:49 | XMS_ITS | Encounter Summary ---
Author Organization [facility] Address [address] [facility] [address] [place] [address] Phone Care Team Providers Care Cdl Service Technician Name Role Phone Aaliyah Smith MD Primary Care Provider [phone] Sudhakar Curtis MD Unavailable [phone] Aaliyah Smith MD Primary Care Provider + [phone] Encounter Details Date Type Department Care Team (Late st Contact Info) Description 12/27/2020 Procedure Pass [facility] Periop [address] [place] [address] Social History Tobacco Use Types Packs/Day Years [...] st Contact Info) Description 02/20/2024 Procedure Pass [facility] Rad[facility] [address] [place] [address] 02/25/2025 2:00 PM EST Appointment [facility] Radiology [address] [place] [address] Benji Hardwick MD, MPH 15 [facility] [place] [address] [place] [address] [email or web address] 02/25/2025 2:30 PM EST Appointment [facility] Pulmonary Function Lab [address] [place] [address] Benji Hardwick MD, MPH [address] [place] [address] [email or web address] 02/25/2025 3:40 PM EST Office Visit [facility] [address] [place] [address] Benji Hardwick MD, MPH [address] [place] [address] [email or web address] 03/19/2025 9:40 AM EST Office Visit [facility] [address] [place] [address] Tanisha Rajan MD [address] [place] [address] [email or web address] documented as of this encounter Visit Diagnoses Not on filedocumented in this encounter Care Teams Cdl Service Technician Relationship Specialty Start Date End Date Aaliyah Smith MD PCP - General Internal Medicine 01/01/18 07/10/23 Aaliyah Smith MD PCP - General Internal Medicine 11/14/23 Sudhakar Curtis MD [address] [place] [address] [email or web address] Surgery 12/21/22 documented as of this encounter Additional Source Comments The information contained in this document represents components of the legal health record. It is not the complete legal health record.[facility]
--- OUTSIDE RECORDS SUMMARY | 2024-12-21 11:49 | XMS_ITS | Encounter Summary ---
Author Organization [facility] Address 399 [facility] [address] [place] [address] Phone Care Team Providers Care Vp Medical Name Role Phone Aaliyah Smith MD Primary Care Provider [phone] Sudhakar Curtis MD Unavailable [phone] Aaliyah Smith MD Primary Care Provider [phone] Encounter Details Date Type Department Care Team (Late st Contact Info) Description 08/06/2019 Ancillary Orders Virtual Department [address] [place] [address] Tanisha Rajan MD [address] [address] [email or web address] Thyroid cancer Social History Tobacco Use [...] Contact Info) Description 02/20/2024 Procedure Pass [facility] [address] [place] [address] 02/25/2025 2:00 PM EST Appointment [facility] [address] [place] [address] Benji Hardwick MD, MPH 15 [facility] [address] [place] [address] [email or web address] 02/25/2025 2:30 PM EST Appointment [facility] Pulmonary Function Lab [address] [place] [address] Benji Hardwick MD, MPH [address] [place] [address] [email or web address] 02/25/2025 3:40 PM EST Office Visit [facility] [address] [place] [address] Benji Hardwick MD, MPH [address] [place] [phone] [email or web address] 03/19/2025 9:40 AM EST Office Visit [facility] [address] [place] [address] Tanisha Rajan MD [address] [place] [address] [email or web address] documented as of this encounter Results * US Soft Tissues of Head and Neck (Non-Thyroid) (08/10/2019 2:10 PM EDT) Anatomical Region Laterality Modality Neck, Head Ultrasound 08/10/2019 3:03 PM EDT Impressions 08/10/2019 3:22 PM EDT No suspicious lymphadenopathy in the neck. Several benign-appearing lymph nodes. POS - [id number] Narrative 08/10/2019 3:22 PM EDT EXAM: US [...] the neck. Several benign-appearing lymphnodes. POS - [id number] Tanisha Rajan MD IMG US HEAD/NECK NON T HYROID Final Result documented in this encounter Visit Diagnoses Diagnosis Thyroid cancer Malignant neoplasm of thyroid gland Thyroid cancer Malignant neoplasm of thyroid gland documented in this encounter Additional Health Concerns Infection Onset Date Last Indicated Resolved Time CoV-Risk 11/02/2020 11/02/2020 11/12/2020 1:23 AM EDT documented as of this encounter Care Teams Vp Medical Relationship Specialty Start Date End Date Aaliyah Smith MD PCP - General Internal Medicine 01/01/18 07/10/23 Aaliyah Smith MD PCP - General Internal Medicine 11/14/23 Sudhakar Curtis MD [address] [place] [address] [email or web address] Orthopedic Surgery 12/21/22 documented as of this encounter Additional Source Comments The information contained in this document represents components of the legal health record. It is not the complete legal health record.[facility]
--- OUTSIDE RECORDS SUMMARY | 2024-12-21 11:49 | XMS_ITS | Encounter Summary ---
Author Organization [facility] Address 399 [employer] [facility] [address] [place] [address] Phone Care Team Providers Care Mixer Blender Name Role Phone Aaliyah Smith MD Primary Care Provider [phone] Sudhakar Curtis MD Unavailable [phone] Aaliyah Smith MD Primary Care Provider [phone] Encounter Details Date Type Department Care Team (Late st Contact Info) Description 06/05/2021 Procedure Pass [facility] Endoscopy Admitting Dept Virtual Department [address] [place] [address] Social History Tobacco Use Types Packs/Day Years [...] Procedure Pass [facility] [address] [place] [address] 02/25/2025 2:00 PM EST Appointment [facility] [address] [place] [address] Benji Hardwick MD, MPH [address] [facility] [address] [place] [address] [email or web address] 02/25/2025 2:30 PM EST Appointment [facility] Pulmonary Function Lab [address] [place] [address] Benji Hardwick MD, MPH [address] [place] [phone] [email or web address] 02/25/2025 3:40 PM EST Office Visit [facility] Diseases [address] [place] [address] eBnji Hardwick MD, MPH [address] [place] [address] [email or web address] 03/19/2025 9:40 AM EST Office Visit [facility] [address] [place] [address] Tanisha Rajan MD [address] [place] [address] [email or web address] documented as of this encounter Visit Diagnoses Not on filedocumented in this encounter Additional Health Concerns Assessment Noted Time PHQ-2 Depression Total Score: 0 01/12/20 21 10:23 AM EST documented as of this encounter Care Teams Mixer Blender Relationship Specialty Start Date End Date Aaliyah Smith MD PCP - General Internal Medicine 01/01/18 07/10/23 Aaliyah Smith MD PCP - General Internal Medicine 11/14/23 Sudhakar Curtis MD [address] [place] [address] [email or web address] Surgery 12/21/22 documented as of this encounter Additional Source Comments The information contained in this document represents components of the legal health record. It is not the complete legal health record.[facility]
--- OUTSIDE RECORDS SUMMARY | 2024-12-21 11:49 | XMS_ITS | Encounter Summary ---
Author Organization [facility] Address 399 [email or web address] [facility] [address] [place] [address] Phone Care Team Providers Care Ground Layer Name Role Phone Aaliyah Smith MD Primary Care Provider [phone] Sudhakar Curtis MD Unavailable [phone] Aaliyah Smith MD Primary Care Provider Encounter Details Date Type Department Care Team (Late st Contact Info) Description 10/10/2020 Transcribe Orders Virtual Department [address] [place] [address] Rebecca Galan PA [address] [place] [address] Ascending aorta dilatation (Primary Dx); Renal lesion [...] st Contact Info) Description 02/20/2024 Procedure Pass [facility] [address] [place] [address] 02/25/2025 2:00 PM EST Appointment [facility] [address] [place] [address] Benji Hardwick MD, MPH 15 [facility] [address] [place] [address] [email or web address] 02/25/2025 2:30 PM EST Appointment [facility] Pulmonary Function Lab [address] [place] [address] Benji Hardwick MD, MPH [address] [place] [address] [email or web address] 02/25/2025 3:40 PM EST Office Visit [facility] [address] [place] [address] Benji Hardwick MD, MPH [address] [place] [address] [email or web address] 03/19/2025 9:40 AM EST Office Visit [facility] [address] [place] [address] Tanisha Rajan MD [address] [place] [address] [email or web address] documented as [...] documented as of this encounter Care Teams Ground Layer Relationship Specialty Start Date End Date Aaliyah Smith MD PCP - General Internal Medicine 01/01/18 07/10/23 Aaliyah Smith MD PCP - General Internal Medicine 11/14/23 Sudhakar Curtis MD [address] [place] [phone] [email or web address] Surgery 12/21/22 documented as of this encounter Additional Source Comments The information contained in this document represents components of the legal health record. It is not the complete legal health record.[facility]
--- OUTSIDE RECORDS SUMMARY | 2024-12-21 11:49 | XMS_ITS | Encounter Summary ---
Author Organization [facility] Address [address] [place] [address] Care Team Providers Care Jewelry Drill Operator Name Role Phone Aaliyah Smith MD Primary Care Provider Clarice webster [facility], Pcp Primary Care Provider Manuel shore Encounter Details Date Type Department Care Team Description 09/30/2019 Care Support Representative Report Medical Records [address] [place] [address] Bharath Parr MD Social History Tobacco Use Types Packs/Day [...] on filedocumented in this encounter Care Teams Jewelry Drill Operator Relationship Specialty Start Date End Date Aaliyah Smith MD PCP - General Internal Medicine 01/04/15 09/22/20 Bubba, Pcp PCP - General Internal Medicine 09/23/20 documented as of this encounter
--- OUTSIDE RECORDS SUMMARY | 2024-12-21 11:49 | XMS_ITS | Encounter Summary ---
Author Organization [facility] Address [address] [employer] [facility] [address] [place] [address] Phone Care Team Providers Care Air Intercept Controller Name Role Phone Aaliyah Smith MD Primary Care Provider [phone] Sudhakar Curtis MD Unavailable [phone] Aaliyah Smith MD Primary Care Provider Encounter Details Date Type Department Care Team (Late st Contact Info) Description 07/15/2018 Transcribe Orders [facility] Main [address] [place] [address] Tanisha Rajan MD [address] [address] [email or web address] Malignant neoplasm of thyroid gland (Primary Dx) [...] Procedure Pass [facility] [address] [place] [address] 02/25/2025 2:00 PM EST Appointment [facility] [address] [place] [address] Benji Hardwick MD, MPH 15 [facility] [address] [place] [address] [email or web address] 02/25/2025 2:30 PM EST Appointment [facility] Pulmonary Function Lab [address] [place] [address] Benji Hardwick MD, MPH [address] [place] [address] [email or web address] 02/25/2025 3:40 PM EST Office Visit [facility] Center for Chest Diseases [address] [place] [address] Benji Hardwick MD, MPH [address] [place] [address] [email or web address] 03/19/2025 9:40 AM EST Office Visit [facility] [address] [place] [address] Tanisha Rajan MD [address] [place] [address] [email or web address] documented as of this encounter Results * (ABNORMAL) Thyroglobulin, Tumor Marker (07/15/2018 1:23 PM EDT) THYROGLOBULIN 3.1(H) ng/mL [facility] Comment: (NOTE) REFERENCE VALUE Athyrotic <0.1 Intact Thyroid <=33 THYROGLOBULIN AB <1.8 <4.0 IU/mL [facility] MED[facility] THYROGLOBULIN INTRP SEE NOTE [facility] Comment: (NOTE) [...] testing methods are immunoenzymatic assays manufactured by [employer]. and performed on the Tissue [employer] DXI 800. Values obtained from different assay methods or kits may be different and cannot be used interchangeably. The results cannot be interpreted as absolute evidence for the presence or absence of malignant disease. Blood 07/15/2018 1:23 PM EDT 07/15/2018 1:27 PM EDT Tanisha Rajan MD LAB BLOOD ORDERABLES F inal Result [facility] [address] [place] [address] * (ABNORMAL) TSH with reflex (07/15/2018 1:23 PM EDT) TSH 0.07(L) 0.27 - 4.20 uIU/mL [facility] Blood 07/15/2018 1:23 PM EDT 07/15/2018 1:26 PM EDT Tanisha Rajan MD LAB BLOOD BKR ORDERABL ES Final Result [facility] [address] [place] [address] documented in this encounter Visit Diagnoses Diagnosis Malignant neoplasm of thyroid gland- Primary documented in this encounter Additional Health Concerns Infection Onset Date Last Indicated Resolved Time CoV-Risk 11/02/2020 11/02/2020 11/12/2020 1:23 AM EDT documented as of this encounter Care Teams Air Intercept Controller Relationship Specialty Start Date End Date Aaliyah Smith MD PCP - General Internal Medicine 01/01/18 07/10/23 Aaliyah Smith MD PCP - General Internal Medicine 11/14/23 Sudhakar Curtis MD [address] [place] [address] [email or web address] Surgery 12/21/22 documented as of this encounter Additional Source Comments The information contained in this document represents components of the legal health record. It is not the complete legal health record.[facility]
--- OUTSIDE RECORDS SUMMARY | 2024-12-21 11:49 | XMS_ITS | Encounter Summary ---
Author Organization [facility] Address [address] [place] [address] [place] [address] Phone Care Team Providers Care Fly Finisher Name Role Phone Aaliyah Smith MD Primary Care Provider + [phone] Sudhakar Curtis MD Unavailable [phone] Aaliyah Smith MD Primary Care Provider + [phone] Reason for Referral * MRI/CAT Scan - Closed Specialty Diagnoses / Procedures Referred By Contac t Referred To Contact Radiology Diagnoses Spinal stenosis, unspecified spinal region Procedures MRI Lumbar Spine Sander Harris DO Phone: tel: fax: [email or web address]:[email or web address] Referral ID Status Reason Start Date Expiration Date Visits Re quested Visits Authorized [id number] Closed 08/18/2020 08/18/2021 1 1 Encounter Details Date Type Department Care Team (Late st Contact Info) Description 08/18/2020 Ancillary Orders Virtual Department [address] [place] [address] Sander Harris DO [address] [place] [address] [email or web address] Spinal stenosis, unspecified spinal region Social History [...] Contact Info) Description 02/20/2024 Procedure Pass [facility] Radiology [address] [place] [address] 02/25/2025 2:00 PM EST Appointment [facility] Radiology [address] [place] [address] Benji Hardwick MD, MPH [address] [place] [address] [email or web address] 02/25/2025 2:30 PM EST Appointment [facility] Pulmonary Function Lab [address] [place] [address] Benji Hardwick MD, MPH [address] [place] [phone] [email or web address] 02/25/2025 3:40 PM EST Office Visit [facility] [address] [place] [address] Benji Hardwick MD, MPH [address] [place] [phone] [email or web address] 03/19/2025 9:40 AM EST Office Visit [facility] [address] [place] [address] Tanisha Rajan MD [address] [place] [phone] documented as of this encounter Results * [...] error was alerted to me by the [facility] office. Impressions 09/02/2020 9:56 [...] L3-4: Unremarkable. L4-5: Unremarkable. L5-S1: Unremarkable. IMPRESSION: Sander Harris DO IMG MR XSPECIALTY Edited Res ult - Final documented in this encounter Visit Diagnoses Diagnosis Spinal stenosis, unspecified spinal region Spinal stenosis, unspecified spinal region documented in this encounter Additional Health Concerns Infection Onset Date Last Indicated Resolved Time CoV-Risk 11/02/2020 11/02/2020 11/12/2020 1:23 AM EDT documented as of this encounter Care Teams Fly Finisher Relationship Specialty Start Date End Date Aaliyah Smith MD PCP - General Internal Medicine 01/01/18 07/10/23 Aaliyah Smith MD PCP - General Internal Medicine 11/14/23 Sudhakar Curtis MD [address] [place] [phone] [email or web address] Surgery 12/21/22 documented as of this encounter Additional Source Comments The information contained in this document represents components of the legal health record. It is not the complete legal health record.[facility]
--- OUTSIDE RECORDS SUMMARY | 2024-12-21 11:49 | XMS_ITS | Encounter Summary ---
Author Organization [facility] Address [address] [facility] [address] [place] [address] Phone Care Team Providers Care Fish Farmer Name Role Phone Aaliyah Smith MD Primary Care Provider [phone] Sudhakar Curtis MD Unavailable [phone] Aaliyah Smith MD Primary Care Provider Encounter Details Date Type Department Care Team (Late st Contact Info) Description 09/02/2020 Ancillary Orders [facility],Outside Imaging [address] [place] [address] System, Provider Not In, PhD [address] [address] Social History Tobacco Use Types Packs/Day Years [...] Info) Description 02/20/2024 Procedure Pass [facility] Radiology [address] [place] [address] 02/25/2025 2:00 PM EST Appointment [facility] [address] [place] [address] Benji Hardwick MD, MPH [address] [place] [address] [address] [place] [address] [email or web address] 02/25/2025 2:30 PM EST Appointment [facility] Pulmonary Function Lab [address] [place] [address] Benji Hardwick MD, MPH [address] [place] [address] [email or web address] 02/25/2025 3:40 PM EST Office Visit [facility] [address] [place] [address] Benji Hardwick MD, MPH [address] [place] [phone] [email or web address] 03/19/2025 9:40 AM EST Office Visit [facility] [address] [place] [address] Tanisha Rajan MD [address] [place] [address] [email or web address] documented as of this encounter Results * [...] documented as of this encounter Care Teams Fish Farmer Relationship Specialty Start Date End Date Aaliyah Smith MD PCP - General Internal Medicine 01/01/18 07/10/23 Aaliyah Smith MD PCP - General Internal Medicine 11/14/23 Sudhakar Curtis MD [address] [place] [phone] [email or web address] Orthopedic Surgery 12/21/22 documented as of this encounter Additional Source Comments The information contained in this document represents components of the legal health record. It is not the complete legal health record.[facility]
--- OUTSIDE RECORDS SUMMARY | 2024-12-21 11:49 | XMS_ITS | Encounter Summary ---
Author Organization [facility] Address [address] [place] [address] Care Team Providers Care Bus And Rail Operator Name Role Phone Ricky West MD Primary Care Provider Aaliyah Jefferson MD Primary Care Provider Clarice Mac, Pcp Primary Care Provider Manuel shore Encounter Details Date Type Department Care Team Description 07/08/2013 Release of Information Medical Records [address] [place] [address] Abstract, Provider Social History Tobacco Use Types [...] on filedocumented in this encounter Care Teams Bus And Rail Operator Relationship Specialty Start Date End Date Ricky West MD PCP - General Internal Medicine 01/02/13 01/03/15 Aaliyah Smith MD PCP - General Internal Medicine 01/04/15 09/22/20 Bubba, Pcp PCP - General Internal Medicine 09/23/20 documented as of this encounter
--- OUTSIDE RECORDS SUMMARY | 2024-12-21 11:49 | XMS_ITS | Encounter Summary ---
Author Organization [facility] Address [address] [place] [address] Care Team Providers Care Rn Med Surg Name Role Phone Ricky West MD Primary Care Provider Aaliyah Jefferson MD Primary Care Provider Clarice webster [facility], Pcp Primary Care Provider Manuel shore Encounter Details Date Type Department Care Team Description 10/06/2013 Hospice Spiritual Care Coordinator Report Medical Records [address] [place] [address] Toby Edge MD Social History Tobacco Use [...] on filedocumented in this encounter Care Teams Rn Med Surg Relationship Specialty Start Date End Date Ricky West MD PCP - General Internal Medicine 01/02/13 01/03/15 Aaliyah Smtih MD PCP - General Internal Medicine 01/04/15 09/22/20 [facility], Pcp PCP - General Internal Medicine 09/23/20 documented as of this encounter
--- OUTSIDE RECORDS SUMMARY | 2024-12-21 11:49 | XMS_ITS | Encounter Summary ---
Author Organization [facility] Address [address] [place] [address] Care Team Providers Care Media Sales Executive Name Role Phone Aaliyah Smith MD Primary Care Provider Clarice webster [facility], Pcp Primary Care Provider Manuel shore Encounter Details Date Type Department Care Team Description 03/30/2020 Automotive Glass Technician Report Medical Records [address] [place] [phone] Tanisha Rajan MD Social History Tobacco Use [...] on filedocumented in this encounter Care Teams Media Sales Executive Relationship Specialty Start Date End Date Aaliyah Smith MD PCP - General Internal Medicine 01/04/15 09/22/20 Bubba, Pcp PCP - General Internal Medicine 09/23/20 documented as of this encounter
--- OUTSIDE RECORDS SUMMARY | 2024-12-21 11:49 | XMS_ITS | Encounter Summary ---
Author Organization [facility] Address [address] [place] [address] Care Team Providers Care Basin Cleaner Name Role Phone Ricky West MD Primary Care Provider Unavail Aaliyah Yanez MD Primary Care Provider Clarice [facility], Pcp Primary Care Provider Unavailabl e Reason for Visit * Reason Onset Date Comments Call-returning From Provider 07/01/2013 Encounter Details Date Type Department Care Team Description 07/01/2013 Telephone Medicine/Pediatrics - [address] [phone] Ricky West MD Call-returning From Provider Social [...] I will for a copy to his mascara molder and the patient has a followup appointment in August or September with his mascara molder, Dr. Jarvis. * Telephone Encounter - Ricky [...] field documented in this encounter Care Teams Basin Cleaner Relationship Specialty Start Date End Date Ricky West MD PCP - General Internal Medicine 01/02/13 01/03/15 Aaliyah Smith MD PCP - General Internal Medicine 01/04/15 09/22/20 [facility], Pcp PCP - General Internal Medicine 09/23/20 documented as of this encounter
--- OUTSIDE RECORDS SUMMARY | 2024-12-21 11:50 | XMS_ITS | Clinical Summary ---
Author Organization [facility] Address [address] [place] [address] Care Team Providers Care Cell Pourer Name Role Phone Aaliyah Carrillo MD Primary Care Provider [phone] Allergies No known active allergies Medications levothyroxine [...] drink = 0.6 oz pur e alcohol) [facility] Utilities Answer Date Recorded In the past 12 months has e [employer], gas, oil, or water [employer] threatened to shut off services in your [...] place to sleep or slept in a prison (including now)? No 06/12/2023 Sex and Gender [...] Vaccine (1 of 2) 1997 RSV Vaccine 50 years and older and Patients (1 - 1-dose 75+ series) 2022 Influenza Vaccine 09/18/2024 12/28/2016, 12/11/2013 COVID-19 Vaccine ( season) 2024 05/11/2020, 04/13/2020 Chronic Controlled Substance User PDMP Review Discontinued 04/16/2023 Hepatitis B Vaccines Aged Out No long er eligible based on patient's age to complete this topic Insurance [facility] COMMERCIAL MEDICARE PART A & B [place] [id number] [facility] Eddy FEE BASIS [address] F,ATTN:[place] [address] Advance Directives * Full Code (Latest Code Status on File) Date Activated Date Inactivated Comments 06/12/2023 11:05 AM Question Answer Comments Decision Thoroughly Discussed with: Patient * Full Code Date Activated Date Inactivated Comments 06/12/2023 5:45 AM 06/12/2023 11:05 AM Care Teams Cell Pourer Relationship Specialty Start Date End Date Aaliyah Carrillo MD [address] [place] [phone] PCP - General Internal Medicine 06/12/23 Aaliyah Carrillo [address] [place] [address], [facility] [address], [place] [address] Primary Care Provider Internal Medicine 04/15/23 Benji Hardwick [address] [place] [address] Physician Pulmonary Disease 04/15/23
--- OUTSIDE RECORDS SUMMARY | 2024-12-21 11:50 | XMS_ITS | Encounter Summary ---
Author Organization [facility] Address [address] [place] [address] Care Team Providers Care Percussion Welding Machine Operator Name Role Phone Aaliyah Smith MD Primary Care Provider Clarice webster [facility], Pcp Primary Care Provider Manuel shore Encounter Details Date Type Department Care Team Description 12/25/2016 Wellness Visit Medical Records [address] [place] [address] Aaliyah Smith MD Social History Tobacco Use [...] on filedocumented in this encounter Care Teams Percussion Welding Machine Operator Relationship Specialty Start Date End Date aAliyah Smith MD PCP - General Internal Medicine 01/04/15 09/22/20 Bubba, Pcp PCP - General Internal Medicine 09/23/20 documented as of this encounter
--- OUTSIDE RECORDS SUMMARY | 2024-12-21 11:50 | XMS_ITS | Encounter Summary ---
Author Organization [facility] Address [address] [facility] [address] [place] [address] Phone Care Team Providers Care Remote Sensing Specialist Name Role Phone Aaliyah Smith MD Primary Care Provider [phone] Sudhakar Curtis MD Unavailable [phone] Aaliyah Smith MD Primary Care Provider + [phone] Encounter Details Date Type Department Care Team (Late st Contact Info) Description 08/02/2021 Transcribe Orders Virtual Department [address] [place] [address] Tanisha Rajan MD [address] [place] [phone] [email or web address] Thyroid cancer (Primary Dx) Social History Tobacco Use Types [...] Info) Description 02/20/2024 Procedure Pass [facility] Radiology [address] [place] [address] 02/25/2025 2:00 PM EST Appointment [facility] [address] [place] [address] Benji Hardwick MD, MPH [address] [place] [phone] [email or web address] 02/25/2025 2:30 PM EST Appointment [facility] Pulmonary Function Lab [address] [place] [address] Benji Hardwick MD, MPH [address] [place] [phone] [email or web address] 02/25/2025 3:40 PM EST Office Visit [facility] for Chest Diseases [address] [place] [address] Benji Hardwick MD, MPH [address] [place] [phone] [email or web address] 03/19/2025 9:40 AM EST Office Visit [facility] [address] [place] [address] Tanisha Rajan MD [address] [place] [phone] [email or web address] documented as of this encounter Results * US Soft Tissues of Head and Neck (Non-Thyroid) (08/18/2021 10:55 AM EDT) Anatomical Region Laterality Modality Neck, Head Ultrasound 08/18/2021 11:2 0 AM EDT Impressions 08/18/2021 11:26 AM EDT Benign appearing bilateral neck lymph nodes. Narrative 08/18/2021 11:26 AM EDT US SOFT TISSUES OF HEAD AND NECK (NON-THYROID) TECHNIQUE: Superficial Neck Ultrasound COMPARISON: 08/02/2020 FINDINGS: Ultrasound examination of the neck demonstrates normal-appearing nonenlarged bilateral neck lymph nodes, two on the right measuring up to 2.5 x 0.6 x 1.6 cm and 5 on the left, measuring up to 2.2 x 0.5 x 1.1 cm. All of these demonstrate normal fatty myron without significant internal vascularity. Procedure Note Robbie Hong MD - 08/18/2021 US SOFT TISSUES OF HEAD AND NECK (NON-THYROID) TECHNIQUE: Superficial Neck Ultrasound COMPARISON: 08/02/2020 FINDINGS: Ultrasound examination of the neck demonstrates normal-appearingnonenlarged bilateral neck lymph nodes, two on the right measuring up to2.5 x 0.6 x 1.6 cm and 5 on the left, measuring up to 2.2 x 0.5 x 1.1 cm.All of these demonstrate normal fatty myron without significant internalvascularity. IMPRESSION: Benign appearing bilateral neck lymph nodes. Tanisha Rajan MD IMG US HEAD/NECK NON T HYROID Final Result documented in this encounter Visit Diagnoses Diagnosis Thyroid cancer- Primary Malignant neoplasm of thyroid gland Thyroid cancer Malignant neoplasm of thyroid gland documented in this encounter Additional Health Concerns Assessment Noted Time PHQ-2 Depression Total Score: 0 07/13/19 22 9:23 AM EDT documented as of this encounter Care Teams Remote Sensing Specialist Relationship Specialty Start Date End Date Aaliyah Smith MD PCP - General Internal Medicine 01/01/18 07/10/23 Aaliyah Smith MD PCP - General Internal Medicine 11/14/23 Sudhakar Curtis MD [address] [place] [phone] [email or web address] Orthopedic Surgery 12/21/22 documented as of this encounter Additional Source Comments The information contained in this document represents components of the legal health record. It is not the complete legal health record.[facility]
--- OUTSIDE RECORDS SUMMARY | 2024-12-21 11:50 | XMS_ITS | Encounter Summary ---
Author Organization [facility] Address [address] [place] [address] Care Team Providers Care Licensed Guide Name Role Phone Aaliyah Smith MD Primary Care Provider Clarice webster [facility], Pcp Primary Care Provider Manuel shore Encounter Details Date Type Department Care Team Description 04/13/2016 Safety Instructor Report Medical Records [address] [place] [address] Antonio Jarvis Social History Tobacco Use Types [...] on filedocumented in this encounter Care Teams Licensed Guide Relationship Specialty Start Date End Date Aaliyah Smith MD PCP - General Internal Medicine 01/04/15 09/22/20 Bubba, Pcp PCP - General Internal Medicine 09/23/20 documented as of this encounter
--- OUTSIDE RECORDS SUMMARY | 2024-12-21 11:50 | XMS_ITS | Encounter Summary ---
Author Organization [facility] Address [address] [place] [address] Care Team Providers Care Director Translational Name Role Phone Pcp, No Primary Care Provider Unavailabl e Unknown Primary Care Provider [phone] Aaliyah Carrillo MD Primary Care Provider [phone] Encounter Details Date Type Department Care Team (Late st Contact Info) Description 12/19/2020 Scanned Document [facility] Heart & Vascular [place] at [address] [phone] Provider, External, [address] [place] [address] Social History Tobacco Use Types Packs/Day Years [...] on filedocumented in this encounter Care Teams Director Translational Relationship Specialty Start Date End Date Pcp, No PCP - General General Medicine 12/19/20 04/14/23 Unknown Unknow Provider Address PCP - General 04/16/23 06/11/23 Aaliyah Carrillo MD [address] [place] [phone] PCP - General Internal Medicine 06/12/23 Aaliyah Carrillo [address] [place] [address], [place] [address], [place] [address] Primary Care Provider Internal Medicine 04/15/23 Aaliyahdarryl Carrillo [address] [place] [address], [address] [address] Primary Care Provider Internal Medicine 04/15/23 Benji Hardwick [address] [place] [address] Physician Pulmonary Disease 04/15/23 documented as of this encounter
--- OUTSIDE RECORDS SUMMARY | 2024-12-21 11:50 | XMS_ITS | Encounter Summary ---
Author Organization [facility] Address [address] [place] [address] Care Team Providers Care Transmission Tester Name Role Phone Aaliyah Smith MD Primary Care Provider Clarice webster [facility], Pcp Primary Care Provider Manuel shore Encounter Details Date Type Department Care Team Description 05/31/2017 Forestry Adviser Report Medical Records [address] [place] [address] Tanisha Rajan MD Social History Tobacco Use [...] on filedocumented in this encounter Care Teams Transmission Tester Relationship Specialty Start Date End Date Aaliyah Smith MD PCP - General Internal Medicine 01/04/15 09/22/20 Bubba, Pcp PCP - General Internal Medicine 09/23/20 documented as of this encounter
--- OUTSIDE RECORDS SUMMARY | 2024-12-21 11:50 | XMS_ITS | Encounter Summary ---
Author Organization [facility] Address [address] [place] [address] Care Team Providers Care Wicker Worker Name Role Phone Pcp, Janene Primary Care Provider Unavailabl e Unknown Primary Care Provider [phone] Aaliyah Carrillo MD Primary Care Provider [phone] Encounter Details Date Type Department Care Team (Late st Contact Info) Description 12/27/2020 Scanned Document [facility] Pulmonary and Critical Care[address] [phone] Pulmonary, Scan Social History Tobacco [...] on filedocumented in this encounter Care Teams Wicker Worker Relationship Specialty Start Date End Date Pcp, No PCP - General General Medicine 12/19/20 04/14/23 Unknown Unknow Provider Address PCP - General 04/16/23 06/11/23 Aaliyah Carrillo MD [address] [place] [phone] PCP - General Internal Medicine 06/12/23 Aaliyah Carrillo [address] [facility], [address] [address] Primary Care Provider Internal Medicine 04/15/23 Aaliyah Carrillo [address] [place] [address], [place] [address], [place] [address] Primary Care Provider Internal Medicine 04/15/23 Benji Hardwick [address] [place] [address] Physician Pulmonary Disease 04/15/23 documented as of this encounter
--- OUTSIDE RECORDS SUMMARY | 2024-12-21 11:50 | XMS_ITS | Encounter Summary ---
Author Organization [facility] Address [address] [place] [address] Care Team Providers Care Logging Crew Supervisor Name Role Phone Aaliyah Smith MD [facility] Primary Care Provider Manuel shore Reason for Visit * Reason Onset Date Comments TEST RESULTS 08/09/2016 Encounter Details Date Type Department Care Team Description 08/09/2016 Telephone Medicine/Pediatrics - [address] [phone] Aaliyah Smith MD TEST RESULTS Social History [...] on filedocumented in this encounter Care Teams Logging Crew Supervisor Relationship Specialty Start Date End Date Aaliyah Smith MD PCP - General Internal Medicine 01/04/15 09/22/20 [facility], Pcp PCP - General Internal Medicine 09/23/20 documented as of this encounter
== END 2024-12-21 10:55 | disposition home or self-care (01) ==
LOC: HO.HGI 09:58
PROVIDERS: PCP Internal Medicine; Visit Provider Nurse Practitioner Family
DX: R13.10 Dysphagia, unspecified (principal); K21.9 Gastro-esophageal reflux disease without esophagitis; R00.0 Tachycardia, unspecified
CPT/HCPCS: 99215; G2211

== ENCOUNTER 2024-12-21 10:37 | Inpatient (IN) | payer MEDICARE, SELFPAY ==
[2024-12-21] VITALS (24 sets, daily range): BP systolic 93–134; BP diastolic 52–98; PULSE 72–148; RESP 12–19; TEMP 36.4–36.7; O2SAT 92–97; BMI 29.7
--- NOTE | ~2024-12-21 | XR_ITS ---
EXAMINATION: XR CHEST CLINICAL INFORMATION: tachycardic with sob COMPARISON: September 16, 2024 TECHNIQUE: Frontal view of the chest was obtained. FINDINGS: Anchors related to right rotator cuff repair are noted. Cardiac size is within normal limits. There is no pneumothorax. There are chronic coarse lung markings with minimal left basilar atelectasis, improved from the prior. XR/XR chest 1V IMPRESSION: Minimal left basilar atelectasis is improved from the prior. Electronically signed by: Nitish Deluna MD 12/21/2024 11:17 AM [facility]
--- NOTE | ~2024-12-21 | US_ITS ---
EXAMINATION: US TRIPLEX LOWER EXTREMITY, BILATERAL CLINICAL INFORMATION: Bilateral lower extremity edema COMPARISON: None available. TECHNIQUE: Color-flow triplex imaging with spectral analysis and compression Doppler were performed on the bilateral lower extremities. FINDINGS: Respiratory variation, normal compression and augmented flow are noted throughout the bilateral lower extremities. The visualized common femoral vein, superficial femoral vein, profunda femoral vein, popliteal vein and midcalf peroneal and posterior tibial venous segments show no evidence of deep venous thrombosis bilaterally. US/US venous duplex LE BI IMPRESSION: No evidence of deep venous thrombosis involving the bilateral lower extremities. Electronically signed by: Nitish Deluna MD 12/21/2024 11:41 AM EST
--- NOTE | 2024-12-21 10:40 | ECG_ITS ---
Test Reason : AFIB Blood Pressure : */* mmHG Vent. Rate : 145 BPM Atrial Rate : 290 BPM P-R Int : * ms QRS Dur : 78 ms QT Int : 258 ms P-R-T Axes : 234 -35 21 degrees QTcB Int : 400 ms Atrial flutter with 2:1 A-V conduction Left axis deviation Junctional ST depression, probably normal Abnormal ECG No previous ECGs available Referred By: Generic ED Physician Electronically Signed By: Jonathan Dailey
[2024-12-21 10:57] LABS: MANUAL DIFF FLAG NO
[2024-12-21 10:58] LABS: Hematocrit 42.5 % (42.0-52.0); Hemoglobin 13.7 g/dl (14.0-18.0); Imm Gran Abs Auto 0.01 X10*3/uL (0.00-0.03); Imm Gran Pct Auto 0.2 % (0.0-0.4); Lymphocytes Absolute Auto 1.1 X10*3/uL (1.2-4.9); Mean Corpuscular HGB Conc 32.2 g/dl (31.0-36.0); Mean Corpuscular Hemoglobin 29.8 pg (27.0-33.0); Mean Corpuscular Volume 92.6 fL (80.0-98.0); NRBC Abs Auto 0.000 X10*3/uL (0.0-0.012); NRBC Pct Auto 0.0 /100WBC (0.0-0.2); Platelet Count 247 X10*3/uL (160-400); Red Blood Count 4.59 X10*6/uL (4.60-5.80); White Blood Count 6.2 X10*3/uL (4.8-10.8)
[2024-12-21 11:05] LABS: INTERNATIONAL NORM RATIO 1.2 (0.9-1.1); Prothrombin Time 13.3 SEC (10.9-12.4)
[2024-12-21 11:12] LABS: Alanine Aminotransferase 16 U/L (0-40); Albumin Level 4.2 g/dL (3.5-5.0); Alkaline Phosphatase 60 U/L (39-117); Anion Gap 9 (12-20); Aspartate Amino Transferase 26 U/L (5-37); Blood Urea Nitrogen 13 mg/dL (9-16); Calcium 9.5 mg/dL (8.4-10.2); Carbon Dioxide 26 mmol/L (22-29); Chloride 110 mmol/L (96-108); Creatinine Clr Calc Pharmacy 80.4; Estimated Glomerular Filt Rate > 60; Potassium 4.3 mmol/L (3.3-5.1); Sodium 141 mmol/L (135-145); Total Protein 6.6 g/dL (6.5-8.0)
[2024-12-21 11:19] LABS: NT Pro B Type Natriuretic Pept 3398.9 pg/mL (<300)
[2024-12-21 11:44] LABS: Magnesium 1.9 mg/dL (1.6-2.6)
[2024-12-21 12:07] LABS: Troponin-I High Sensitivity 9.3 ng/L (<3.5-35.0)
--- NOTE | 2024-12-21 12:35 | PC.NURSE ---
patient presented to the ED via wheelchair from GI specialist, states he went in for procedure and was told that his heart rate was high. patient presents alert and oriented x4, walks with a large cane, states he uses the cane when he feels he needs it. patient right lower leg more swollen than left. placed on tele monitor, noted to be tachy in the 140s, ekg completed showed aflutter. #20 placed in the RFA. patient denies any chest pain, states he started to feel increased sob and wheezing on saturday from his baseline, hx of copd not on supplemental o2. patient medicated per APR, currently on dilt gtt 15ml/hr, remains in aflutter at this time rate 140s, bp stable
--- NOTE | 2024-12-21 12:50 | ED_ITS ---
HPI - Arrhythmia/Palpitations General Chief Complaint: Arrhythmia/Palpitations Stated Complaint: expect from floor Time Seen by Provider: 12/21/24 10:59 Source: patient and old records reviewed Mode of arrival: ambulatory Limitations: no limitations History of Present Illness ED Provider: TOM NAZARIO narrative: 79-year-old male with past medical history of thyroid cancer status post resection now on levothyroxine, elevated cholesterol, reactive airway disease, he was being seen in our GI office today for dysphagia and was noted to have a rapid irregular heart rate and sent to the ED. He tells me several years ago he had a monitor at home and they did suspect AFib but he has no diagnosis. He notes this weekend he felt like his right leg was a little bit more swollen than the left which is chronic but it did worsen on Saturday, and he felt epigastric burning. He denies shortness of breath, fevers, recent travel, recent procedure, gastrointestinal bleeding. Onset (ago): day(s) (?Saturday but unclear) Duration: constant Severity: moderate Context: occurred during rest Associated symptoms: other Related Data Home Medications ?Medication ?Instructions ?Recorded ?Confirmed tiotropium 2.5 mcg-olodaterol 2.5 2 puff inhalation DA RUBIA 07/15/24 08/26/24 mcg/actuation mist for inhalation (Stiolto Respimat) Previous Rx's ?Medication ?Instructions ?Recorded albuterol sulfate 90 mcg/actuation 2 puff inhalation Q 4H PRN 10/28/23 aerosol inhaler shortness of breath or wheez ing 90 days #8.5 grams atorvastatin 20 mg tablet 20 mg PO DAILY 90 days #90 t abs 04/23/24 albuterol sulfate 2.5 mg/3 mL 2.5 mg (3 mL) inhalation .q 4h PRN 07/28/24 (0.083 %) solution for nebulization shortness of breat h or wheezing #90 mL nebulizers #1 ea 07/28/24 furosemide 20 mg tablet 20 - 40 mg (1 - 2 x 20 mg) P O 09/03/24 DAILY for swelling #180 tabs epinephrine 0.3 mg/0.3 mL 0.3 mg (0.3 mL) IM Q10M PRN 10/29/24 injection, auto-injector (EpiPen anaphylaxis #2 ea 2-[place]) levothyroxine 200 mcg tablet 200 mcg PO DAILY #90 tabs 10/29/24 Allergies Allergy/AdvReac Type Severity Reaction Status Date / Time bee pollen (bee stings) Allergy Severe Anaphylaxis Verified 12/21/24 10:44 Review of Systems 2 Review of Systems: Constitutional : No Fever, No Chills, No Fatigue ENT/Mouth : No sore throat, No Rhinorrhea Eyes: No Eye Pain, No Swelling, No Redness Cardiovascular : No Chest Pain, No SOB, No Dyspnea on Exertion, pos palpitations Respiratory : No Cough, No Sputum Gastrointestinal : No Nausea, No Vomiting, No Diarrhea, No abdominal Pain Genitourinary : No Dysuria, No Urinary Frequency, No Hematuria, Musculoskeletal : No joint pain, No Myalgias, No Joint Swelling Skin : No Skin Lesions, No rash Neuro : No Weakness, No Numbness, No Dizziness, no headache All other systems reviewed and are negative [facility] Past Medical History Attestation statement: The following information was validated with the patient. Source: old records reviewed Surgical History Hx of spinal surgery History of ptosis repair Voice impairment History of transurethral resection of prostate Epidermal inclusion cyst History of right knee surgery S/P foot surgery, right Right shoulder injury History of thyroidectomy Neoplasm of right patella Inguinal hernia bilateral, non-recurrent Left hand pain Family History Family History Mother Coronary artery disease Pulmonary embolism Father Cancer of prostate Social History Social History Housing: House Alcohol intake: never Patient Tobacco Use Status: Former Tobacco user Cigarette Packs Per Day: 0.5 Years Smoked: 3 e-Cigarette/Vaping Use: Never Used Second Hand Smoke Exposure: No Advance Directives: Yes Advance Directives Information Provided: Yes Advance Directives on File: No service: Yes Current occupational status: retired Cognitive needs: No Hearing needs: Yes (bilateral hearing aids) Vision needs: Yes (glasses) Physical Exam 2 Vital Signs: Vital Signs: Last Vital Signs Temp 98.1 F 12/21/24 14:12 Pulse 143 H 12/21/24 14:12 Resp 15 12/21/24 14:12 BP 104/64 12/21/24 14:12 Pulse Ox 96 12/21/24 14:12 O2 Del Method Room Air 12/21/24 14:12 BMI result Body Mass Index 29.7 Appearance: Alert. Oriented X3. No acute distress. Eyes: Pupils equal, round and reactive to light. ENT: Pharynx normal. Neck: Normal inspection. Neck supple. CVS: irregular tachy heart rate and rhythm. Pulses normal. Respiratory: No respiratory distress. Breath sounds normal. Abdomen: Soft and nontender. Skin: Skin warm and dry. Normal skin color. Normal skin turgor. Extremities: trace pitting edema R > L Neuro: Oriented X 3. No motor deficit. No sensory deficit. CN2-12 intact Course Course Course Narrative: good response to IV lopressor will admit Medications Administered Generic Name Dose Route Start Last Admin Trade Name Freq PRN Reason Stop Dose Admin Diltiazem HCl 125 mg/ Sodium 125 mls @ 0 mls/hr 12/21/24 12:00 12/21/24 12:26 Chloride IVCONT 15 mg/hr .Q0M GIOVANNI 15 mls/hr Protocol Titration Per Protocol Discontinued Medications Generic Name Dose Route Start Last Admin Trade Name Freq PRN Reason Stop Dose Admin Diltiazem HCl 10 mg 12/21/24 10:56 12/21/24 11:01 Diltiazem Hcl 50 Mg/10 Ml Vial IVPUSH 12/21/24 10:57 10 mg ONCE ONE Administration Diltiazem HCl 10 mg 12/21/24 11:07 12/21/24 11:22 Diltiazem Hcl 50 Mg/10 Ml Vial IVPUSH 12/21/24 11:08 10 mg ONCE ONE Administration Metoprolol Tartrate 2.5 mg 12/21/24 13:04 12/21/24 13:34 Metoprolol Tartrate 5 Mg/5 Ml Vial IVPUSH 12/21/24 13:05 2.5 mg ONCE ONE Administration Protocol Medical Decision Making Medical Decision Making MDM Narrative: 79-year-old male with past medical history of thyroid cancer status post resection now on levothyroxine, elevated cholesterol, reactive airway disease who presents with a flutter from the GI office he does have some mild GI upset on Saturday but currently denies dizziness chest pain trouble breathing. At this time given right lower extremity swelling though it is chronic in nature I am going to obtain DVT study. He has no clinical signs of CHF, will start on IV diltiazem. If he does not convert will admit Chads vascular score is 3 will start on Eliquis he denies any issues or concerns for bleeding Differential Diagnosis Differential Diagnoses: The differential diagnosis associated with the presentation includes Light abnormality, new onset a flutter, anemia, low probability of PE Admission/Observation Consideration of admission/observation: Escalation of care including admission/observation considered Admit for rate control Consult Healthcare Provider Management of the patient was discussed with: Hospitalist (will admit) and Manager Game (Dr. mccann where please consult okay to add on additional beta- vanessa low-dose) Lab Data MDM Lab Attestation statement: I reviewed the patient's lab results. 12/21/24 10:52 12/21/24 10:52 Labs: Lab Results 12/21/24 12/21/24 Range/Units 10:52 11:36 WBC 6.2 (4.8-10.8) X10*3/uL RBC 4.59 L (4.60-5.80) X10*6/uL Hgb 13.7 L (14.0-18.0) g/dl Hct 42.5 (42.0-52.0) % MCV 92.6 (80.0-98.0) fL MCH 29.8 (27.0-33.0) pg MCHC 32.2 (31.0-36.0) g/dl RDW 14.5 (11.0-16.0) % Plt Count 247 (160-400) X10*3/uL MPV 11.1 (9.4-12.4) fL Immature Gran % (Auto) 0.2 (0.0-0.4) % Neut % (Auto) 70.5 (45-73) % Lymph % (Auto) 17.7 L (20-40) % [place] % (Auto) 9.2 (2-11) % Eos % (Auto) 1.9 (0-4) % Baso % (Auto) 0.5 (0-2) % Lymph # (Auto) 1.1 L (1.2-4.9) X10*3/uL [place] # (Auto) 0.6 (0.1-1.2) X10*3/uL Eos # (Auto) 0.1 (0.0-0.4) X10*3/uL Baso # (Auto) 0.0 (0.0-0.2) X10*3/uL Abs Immat Gran (auto) 0.01 (0.00-0.03) X10*3/uL Absolute Neuts (auto) 4.4 (2.0-8.3) x10*3/uL Absolute Nucleated RBC 0.000 (0.0-0.012) X10*3/uL Nucleated RBC % (auto) 0.0 (0.0-0.2) /100WBC PT 13.3 H (10.9-12.4) SEC INR 1.2 H (0.9-1.1) Sodium 141 (135-145) mmol/L Potassium 4.3 (3.3-5.1) mmol/L Chloride 110 H (96-108) mmol/L Carbon Dioxide 26 (22-29) mmol/L Anion Gap 9 L (12-20) BUN 13 (9-16) mg/dL Creatinine 1.02 (0.5-1.4) mg/dL Estim Creat Clear Calc 80.4 Estimated GFR > 60 Random Glucose 107 (60-115) mg/dL Calcium 9.5 (8.4-10.2) mg/dL Magnesium 1.9 (1.6-2.6) mg/dL Total Bilirubin 1.1 H (0.0-1.0) mg/dL AST 26 (5-37) U/L ALT 16 (0-40) U/L Alkaline Phosphatase 60 (39-117) U/L Troponin I High Sens 9.3 (<3.5-35.0) ng/L NT-Pro-B Natriuret Pep 3398.9 H (<300) pg/mL Total Protein 6.6 (6.5-8.0) g/dL Albumin 4.2 (3.5-5.0) g/dL TSH 0.05 L (0.32-4.0) uIU/mL Free T4 1.41 (0.71-1.85) ng/dL Independent Interpretation I performed an independent interpretation of an: EKG, Plain X-Ray (normal) and Ultrasound (no dvt) Interpretation: Rate: 145 Rhythm: A flutter with 2-1 AV conduction [place]: Left Normal QRS complex. ST T wave : T-waves are tall but there is no ST elevation, he has T-wave inversions in lead 2 qTC: 400 prior studies: No prior EKGs to compare to The study has been interpreted contemporaneously by me. . Radiology Impression Discussion of test interpretation with radiology: I have reviewed the radiologist's reading. External Record Review External record reviewed: Outpatient record and Prior outpatient labs Critical Care Time Critical Care Time Critical Care Time: Yes Total Critical Care Time: 65 Attestation: Time is exclusive of separately billable procedures. Time includes: direct patient care, patient reassessment, coordination of patient care, interpretation of data (laboratory data, pulse oximetry, chest xrays), review of patient's medical records, medical consultation and documentation of patient care. Procedures excluded from critical care time: central intravenous line placement and electrocardiography. I attest to this time spent taking care of the patient Discharge Plan Discharge Clinical Impression: Atrial flutter Qualifiers: Atrial flutter type: typical Qualified Code(s): I48.3 - Typical atrial flutter Patient Disposition: Admitted As Inpatient Print Language: Uzbek
[2024-12-21 12:58] LABS: Free T4 (Free Thyroxine) 1.41 ng/dL (0.71-1.85)
--- NOTE | 2024-12-21 13:57 | PC.NURSE ---
patient on tele monitor showed aflutter rate in the 70s consistently for atleast 5 min, entired in vital signs. patient then went back up to the 120s-140s. patient remains asymptomatic at this time
--- NOTE | 2024-12-21 14:59 | P.HPHOSP_ITS ---
History of Present Illness Date of Service: 12/21/24 Chief Complaint: Elevated heart rate 79-year-old man presented to the ER with complaints of weakness, substernal chest burning. He reported that this started on Saturday and he came to a gastroenterology appointment today and they found his heart rate to be elevated and sent him to the ER. In the ER he was found to be in atrial flutter with rapid ventricular response up to the 140s. He was started on diltiazem drip. Patient denied any recent travel, sick contacts, fever, chills, nausea, vomiting, diarrhea, shortness of breath. Denies any history of cardiac disease or atrial fibrillation or flutter in the past. He reports that he is very independent. Chest x-ray showed minimal left atelectasis improved from prior. Venous Doppler ultrasound showed no evidence of DVT. The patient will be admitted for further management and treatment of new onset atrial flutter. Review of Systems 2 Review of Systems: Denies any recent fever chills or decrease in appetite respiratory denies any shortness of breath or cough cardiovascular see HPI gastrointestinal denies any dysphagia abdominal pain nausea vomiting or diarrhea genitourinary denies any dysuria frequency or hematuria musculoskeletal denies any joint pain or swelling neuropsych denies any weakness or seizures all other systems reviewed are negative [facility] Medical History (Updated 12/21/24 @ 15:15 by Vanessa Trevizo NP) Thyroid cancer Agent orange exposure COPD (chronic obstructive pulmonary disease) Family History Mother Coronary artery disease Pulmonary embolism Father Cancer of prostate Surgical History Hx of spinal surgery History of ptosis repair Voice impairment History of transurethral resection of prostate Epidermal inclusion cyst History of right knee surgery S/P foot surgery, right Right shoulder injury History of thyroidectomy Neoplasm of right patella Inguinal hernia bilateral, non-recurrent Left hand pain Social History Housing: House Alcohol intake: never Patient Tobacco Use Status: Former Tobacco user Cigarette Packs Per Day: 0.5 Years Smoked: 3 e-Cigarette/Vaping Use: Never Used Second Hand Smoke Exposure: No Advance Directives: Yes Advance Directives Information Provided: Yes Advance Directives on File: No service: Yes Current occupational status: retired Cognitive needs: No Hearing needs: Yes (bilateral hearing aids) Vision needs: Yes (glasses) Meds Allergies Allergy/AdvReac Type Severity Reaction Status Date / Time bee pollen (bee stings) Allergy Severe Anaphylaxis Verified 12/21/24 10:44 Active Medications: Current Medications Diltiazem HCl 125 mg/ Sodium (Chloride) 125 mls @ 0 mls/hr IVCONT .Q0M GIOVANNI; Protocol Last Titration: 12/21/24 12:26 Dose: 15 mg/hr, 15 mls/hr Home Medications ?Medication ?Instructions ?Recorded ?Confirmed ?Last Taken ?Type tiotropium 2.5 mcg-olodaterol 2.5 2 puff inhalation DA RUBIA 07/15/24 12/21/24 12/20/24 History mcg/actuation mist for inhalation (Stiolto Respimat) levothyroxine 200 mcg tablet 200 mcg PO DAILY@0600 05/1212/21/24 12/20/24 History Physical Exam 2 Vital Signs and Narrative: Vital Signs: Last Vital Signs Temp 98.1 F 12/21/24 14:19 Pulse 143 H 12/21/24 14:19 Resp 15 12/21/24 14:19 BP 104/64 12/21/24 14:19 Pulse Ox 96 12/21/24 14:19 O2 Del Method Room Air 12/21/24 14:19 BMI result Body Mass Index 29.7 Appearing in no acute distress head is normocephalic atraumatic eyes pupils are PERRLA sclera is anicteric mouth throat mucous membranes are intact and moist neck is supple no lymphadenopathy, no JVD noted lung sounds mild rales heart irregular positive bowel sounds, abdomen is soft, nontender neuro patient is alert x3, no focal deficits Results Labs 12/21/24 10:52 12/21/24 10:52 Labs: Laboratory Results - last 24 hr 12/21/24 12/21/24 10:52 11:36 MCV 92.6 MCH 29.8 MCHC 32.2 RDW 14.5 Plt Count 247 MPV 11.1 Immature Gran % (Auto) 0.2 Neut % (Auto) 70.5 Lymph % (Auto) 17.7 L [place] % (Auto) 9.2 Eos % (Auto) 1.9 Baso % (Auto) 0.5 Lymph # (Auto) 1.1 L [place] # (Auto) 0.6 Eos # (Auto) 0.1 Baso # (Auto) 0.0 Abs Immat Gran (auto) 0.01 Absolute Neuts (auto) 4.4 Absolute Nucleated RBC 0.000 Nucleated RBC % (auto) 0.0 PT 13.3 H INR 1.2 H Anion Gap 9 L Estim Creat Clear Calc 80.4 Estimated GFR > 60 Random Glucose 107 Calcium 9.5 Magnesium 1.9 Total Bilirubin 1.1 H AST 26 ALT 16 Alkaline Phosphatase 60 Troponin I High Sens 9.3 NT-Pro-B Natriuret Pep 3398.9 H Total Protein 6.6 Albumin 4.2 TSH 0.05 L Free T4 1.41 Imaging Radiologist's Impressions: Impressions Chest X-Ray 12/21/24 11:03 IMPRESSION: Minimal left basilar atelectasis is improved from the prior. Electronically signed by: Nitish Deluna MD 12/21/2024 11:17 AM EST RP Venous Duplex 12/21/24 11:15 IMPRESSION: No evidence of deep venous thrombosis involving the bilateral lower extremities. Electronically signed by: Nitish Deluna MD 12/21/2024 11:41 AM [place] RP Assessment and Plan (1) Atrial flutter: Qualifiers: Atrial flutter type: typical Qualified Code(s): I48.3 - Typical atrial flutter Status: Acute Plan 79-year-old man admitted with new onset of atrial flutter and mild congestive heart failure New onset atrial flutter Unknown etiology Started on Cardizem drip in the ER Monitor on telemetry cardiology consultation Started Eliquis, continue 5 mg twice daily Acute congestive heart failure, unspecified BNP 3398 Echocardiogram Lasix IV 20 mg b.i.d. Cardiology to follow Daily weights Strict intake and output History of thyroidectomy Continue levothyroxine Hyperlipidemia Continue statin DVT prophylaxis with Eliquis Full code Quality Stroke Does the patient have a stroke diagnosis?: No VTE Prior VTE?: No VTE Risk Level:: Medical - moderate - high VTE Device Contraindication: Treatment Not Indicated VTE Drug Contraindication: N/A - Med Ordered
--- NOTE | 2024-12-21 15:09 | PHA.MEDREC ---
Addendum entered by Frida Burgos RPh 12/21/24 15:30: Reviewed by [facility] Original Note: Pharmacy Consult ? Medication Reconciliation Pharmacy has completed the medication reconciliation. Spoke with pt and he confirmed his medications. Pt confirmed he takes Atorvastatin once daily and gets it filled at [facility] and has an overabundance of them at home , he no longer takes the Albuterol nebulization solution and sates he only takes an Albuterol inhaler as needed and Stiloto inhaler 2 puffs daily; pt states Stiloto is being filled at [facility] and pt has that inhaler on hand at this time and pt not taking Furosemide anymore and states he stopped it in the last few months due to the swelling subsided almost completely for him and pt no longer needing it.
[2024-12-21] MEDS: Furosemide 20 MG/2 ML VIAL IVPUSH (15:58)
[2024-12-21] MEDS: 0.9 % Sodium Chloride Flush 3 ML SYRINGE IVFLUSH (16:01)
--- NOTE | 2024-12-21 17:08 | PM.CNCAR ---
History of Present Illness History of Present Illness Date of Service: 12/21/24 Requesting physician: Scarlett Santos Chief complaint: new onset aflutter Narrative: [age] year gentleman presenting with tachycardia. He apparently went to have assessment with GI where he was noticed to be tachycardic and was sent to the emergency department. Was noticed to be in atrial flutter at 145 beats per minute. He was started on a Cardizem drip without any significant change in heart rate. He is saying that he has noticed some shortness of breath and wheezing but has COPD. No orthopnea or PND. He has some peripheral edema which is somewhat new. He is denying any palpitations. He is denying any other complaints currently. He previously had thyroid cancer with surgery. 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 [facility] Past Medical History Medical History (Updated 12/21/24 @ 15:15 by Vanessa Trevizo NP) Thyroid cancer Agent orange exposure COPD (chronic obstructive pulmonary disease) Family History Family History Mother Coronary artery disease Pulmonary embolism Father Cancer of prostate Surgical History Surgical History Hx of spinal surgery History of ptosis repair Voice impairment History of transurethral resection of prostate Epidermal inclusion cyst History of right knee surgery S/P foot surgery, right Right shoulder injury History of thyroidectomy Neoplasm of right patella Inguinal hernia bilateral, non-recurrent Left hand pain Social History Social History Housing: House Alcohol intake: never Patient Tobacco Use Status: Former Tobacco user Cigarette Packs Per Day: 0.5 Years Smoked: 3 e-Cigarette/Vaping Use: Never Used Second Hand Smoke Exposure: No Advance Directives: Yes Advance Directives Information Provided: Yes Advance Directives on File: No service: Yes Current occupational status: retired Cognitive needs: No Hearing needs: Yes (bilateral hearing aids) Vision needs: Yes (glasses) Meds Allergies Allergy/AdvReac Type Severity Reaction Status Date / Time bee pollen (bee stings) Allergy Severe Anaphylaxis Verified 12/21/24 10:44 Active Medications: Current Medications Acetaminophen (Acetaminophen 325 Mg Tablet) 650 mg PO Q6H PRN PRN Reason: Pain, Mild 1-3,fever,headache Albuterol Sulfate (Albuterol Sulfate 90 Mcg 8 Gm Inhaler) 2 puff INHALE Q4H PRN PRN Reason: shortness of breath or wheezing Apixaban (Apixaban 5 Mg Tablet) 5 mg PO BID [facility] Atorvastatin Calcium (Atorvastatin Calcium 20 Mg Tablet) 20 mg PO DAILY [facility] Calcium Carbonate (Calcium Carbonate 750 Mg Tab.Chew) 750 mg PO Q4H PRN PRN Reason: Heartburn Furosemide (Furosemide 20 Mg/2 Ml Vial) 20 mg IVPUSH BID@0900,1800 [facility]; Protocol Last Admin: 12/21/24 15:58 Dose: 20 mg Diltiazem HCl 125 mg/ Sodium (Chloride) 125 mls @ 0 mls/hr IVCONT .Q0M [facility]; Protocol Last Titration: 12/21/24 12:26 Dose: 15 mg/hr, 15 mls/hr Levothyroxine Sodium (Levothyroxine Sodium 200 Mcg Tablet) 200 mcg PO DAILY@0600 [facility] Magnesium Hydroxide (Milk Of Magnesia 30 Ml Oral.Susp) 30 ml PO DAILY PRN PRN Reason: Constipation Melatonin (Melatonin 3 Mg Tablet) 6 mg PO BEDTIME PRN PRN Reason: Insomnia Metoprolol Tartrate (Metoprolol Tartrate 25 Mg Tablet) 25 mg PO BID [facility]; Protocol Ondansetron HCl (Ondansetron Hcl 4 Mg/2 Ml Vial) 4 mg IVPUSH Q8H PRN PRN Reason: Nausea and Vomiting Sodium Chloride (0.9 % Sodium Chloride Flush 3 Ml Syringe) 3 ml IVFLUSH QSHI Last Admin: 12/21/24 16:01 Dose: 3 ml Home Medications ?Medication ?Instructions ?Recorded ?Confirmed ?Last Taken ?Type tiotropium 2.5 mcg-olodaterol 2.5 2 puff inhalation DAILY 07/15/24 12/21/24 12/20/24 History mcg/actuation mist for inhalation (Stiolto Respimat) levothyroxine 200 mcg tablet 200 mcg PO DAILY@0600 12/21/24 12/21/24 12/20/24 History Physical Exam Vital Signs: Vital Signs: Last Vital Signs Temp 97.9 F 12/21/24 15:56 Pulse 73 12/21/24 15:56 Resp 12 12/21/24 15:56 BP 107/67 12/21/24 15:58 Pulse Ox 94 12/21/24 15:56 O2 Del Method Room Air 12/21/24 15:56 BMI result Body Mass Index 29.7 GENERAL APPEARANCE: in no acute distress, pleasant. NECK: no carotid bruit, + jugular venous distention. SKIN: no suspicious lesions, warm and dry. HEART: Apical holosystolic murmur., regular rate and rhythm. Tachycardic. LUNGS: clear to auscultation bilaterally. ABDOMEN: soft, nontender. EXTREMITIES: + edema. PERIPHERAL PULSES: equal. NEUROLOGIC: No gross deficits, AAO X 3 Objective Labs and Meds 12/21/24 10:52 12/21/24 10:52 Lab results: Laboratory Results - last 24 hr 12/21/24 12/21/24 10:52 11:36 WBC 6.2 RBC 4.59 L Hgb 13.7 L Hct 42.5 MCV 92.6 MCH 29.8 MCHC 32.2 RDW 14.5 Plt Count 247 MPV 11.1 Immature Gran % (Auto) 0.2 Neut % (Auto) 70.5 Lymph % (Auto) 17.7 L [place] % (Auto) 9.2 Eos % (Auto) 1.9 Baso % (Auto) 0.5 Lymph # (Auto) 1.1 L [place] # (Auto) 0.6 Eos # (Auto) 0.1 Baso # (Auto) 0.0 Abs Immat Gran (auto) 0.01 Absolute Neuts (auto) 4.4 Absolute Nucleated RBC 0.000 Nucleated RBC % (auto) 0.0 PT 13.3 H INR 1.2 H Sodium 141 Potassium 4.3 Chloride 110 H Carbon Dioxide 26 Anion Gap 9 L BUN 13 Creatinine 1.02 Estim Creat Clear Calc 80.4 Estimated GFR > 60 Random Glucose 107 Calcium 9.5 Magnesium 1.9 Total Bilirubin 1.1 H AST 26 ALT 16 Alkaline Phosphatase 60 Troponin I High Sens 9.3 NT-Pro-B Natriuret Pep 3398.9 H Total Protein 6.6 Albumin 4.2 TSH 0.05 L Free T4 1.41 Imaging Radiologist's impression: Impressions Chest X-Ray 12/21/24 11:03 IMPRESSION: Minimal left basilar atelectasis is improved from the prior. Electronically signed by: Nitish Deluna MD 12/21/2024 11:17 AM EST RP Venous Duplex 12/21/24 11:15 IMPRESSION: No evidence of deep venous thrombosis involving the bilateral lower extremities. Electronically signed by: Nitish Deluna MD 12/21/2024 11:41 AM EST RP Assessment and Plan (1) Atrial flutter: Qualifiers: Atrial flutter type: typical Qualified Code(s): I48.3 - Typical atrial flutter Status: Acute Plan Pleasant 79 year gentleman presenting with atrial flutter. Heart rates are quite fast on Cardizem. Add metoprolol 25 mg twice a day. We will check echocardiogram to assess LV function. He has a holosystolic murmur at the apex and potentially has mitral regurgitation. He also has not been feeling the tachycardia and it is possible that he has been in atrial flutter for long time. In these cases cardiomyopathy becomes a big question. He appears to be mildly overloaded. I will wait for echocardiography to make further changes in medications. Agree with anticoagulation. Thank you for allowing me to participate in the care of your patient. Please feel free to contact me if you have any questions. Procedures Date of Service Date of Service: 12/21/24
--- NOTE | 2024-12-21 18:30 | PC.NURSE ---
Messaged inpatient provider d/t heart rate frequently jumping to 140-150s. no complaints at this time. on cardizem drip 15mg/hr. no new orders at this time
--- NOTE | 2024-12-21 18:46 | PC.NURSE ---
per inpatient provider Vanessa Renee drip additional bag at 2024
--- NOTE | 2024-12-21 19:11 | PC.NURSE ---
Assumed care of patient at 1900. Pt alert and oriented, denies chest pain or shortness of breath. Pt has cardizem drip infusing @ 15 mg/hr as ordered, on tele. Call arroyo within reach.
--- NOTE | 2024-12-21 20:40 | PC.NURSE ---
Cardizem drip finished @ 2034. Pt HR sustained in 70s. Holding Cardizem drip per protocol. Provider notified.
--- NOTE | 2024-12-21 22:12 | PC.NURSE ---
Pt HR noted to spike to 140s multiple times. Cardizem drip restarted at 10 mg/hr per protocol. Pt denies chest pain or shortness of breath. Pt does not appear to be in any distress at this time.
--- NOTE | 2024-12-21 22:35 | PC.NURSE ---
Pt HR continues to be in 140s. Cardizem drip titrated to 15 mg/hr per protocol. Pt remains asymptomatic.
--- NOTE | 2024-12-21 23:14 | PC.NURSE ---
Pt cardiac leads changed. Pt HR sustained in 70s. Cardizem drip paused. Dr. Garcia notified.
[2024-12-22] VITALS (15 sets, daily range): BP systolic 92–113; BP diastolic 46–81; PULSE 65–143; RESP 14–20; TEMP 36.4–37; O2SAT 92–98; BMI 28.5
[2024-12-22] MEDS: 0.9 % Sodium Chloride Flush 3 ML SYRINGE IVFLUSH ×4 (00:15→19:59)
--- NOTE | 2024-12-22 02:05 | ECG_ITS ---
Test Reason : mell Blood Pressure : */* mmHG Vent. Rate : 71 BPM Atrial Rate : 284 BPM P-R Int : * ms QRS Dur : 104 ms QT Int : 418 ms P-R-T Axes : 261 -35 24 degrees QTcB Int : 454 ms Atrial flutter with 4:1 A-V conduction Left axis deviation Abnormal ECG When compared with ECG of 21-Dec-2024 10:44, HR better controlled Referred By: Lory Ya Electronically Signed By: Jonathan Dailey
--- NOTE | 2024-12-22 02:11 | PC.NURSE ---
Pt HR noted to drop to 30s. Rapid response called. Pt alert and oriented in stretcher, remains asymptomatic. EKG obtained. Defib pabs placed on patient. Dr. Garcia at bedside. HR increased back to 70s. No new orders at this time.
[2024-12-22 04:01] LABS: MANUAL DIFF FLAG NO
[2024-12-22 04:05] LABS: Hematocrit 38.7 % (42.0-52.0); Hemoglobin 12.5 g/dl (14.0-18.0); Imm Gran Abs Auto 0.03 X10*3/uL (0.00-0.03); Imm Gran Pct Auto 0.4 % (0.0-0.4); Lymphocytes Absolute Auto 1.6 X10*3/uL (1.2-4.9); Mean Corpuscular HGB Conc 32.3 g/dl (31.0-36.0); Mean Corpuscular Hemoglobin 29.6 pg (27.0-33.0); Mean Corpuscular Volume 91.5 fL (80.0-98.0); NRBC Abs Auto 0.000 X10*3/uL (0.0-0.012); NRBC Pct Auto 0.0 /100WBC (0.0-0.2); Platelet Count 252 X10*3/uL (160-400); Red Blood Count 4.23 X10*6/uL (4.60-5.80); White Blood Count 7.0 X10*3/uL (4.8-10.8)
[2024-12-22 04:21] LABS: Alanine Aminotransferase 15 U/L (0-40); Albumin Level 3.6 g/dL (3.5-5.0); Alkaline Phosphatase 49 U/L (39-117); Anion Gap 11 (12-20); Aspartate Amino Transferase 22 U/L (5-37); Blood Urea Nitrogen 17 mg/dL (9-16); Calcium 8.7 mg/dL (8.4-10.2); Carbon Dioxide 26 mmol/L (22-29); Chloride 106 mmol/L (96-108); Creatinine Clr Calc Pharmacy 74.5; Estimated Glomerular Filt Rate > 60; Potassium 3.8 mmol/L (3.3-5.1); Sodium 139 mmol/L (135-145); Total Protein 5.6 g/dL (6.5-8.0)
--- NOTE | 2024-12-22 07:59 | PC.NURSE ---
Assumed care of pt at 0700. Patient resting in bed quietly, a/ox3. No signs of respiratory distress; respirations even and unlabored. Cardizem drip was paused by previous RN due to HR <90bpm. Current heart rate fluctuating between 120-140bpm aflutter on monitor, intermittently dropping into 70s-90s then returning to 130s-140s. MD made aware and contacted cardiology for further recommendations. Per cardiology- continue to hold Cardizem drip at this time. Patient remains asymptomatic. Vitals updated in worklist- BP cycling q15 to monitor, continuous O2 probe on patient. Call arroyo within reach, all needs met at this time.
[2024-12-22] MEDS: Furosemide 20 MG/2 ML VIAL IVPUSH (09:04)
--- NOTE | 2024-12-22 10:50 | MHC.CM.PN ---
CM met with Patient at bedside, in the ED, and addressed IMM with him, providing Patient with the original and a copy will be placed on the chart. Patient lives in a house with his /HCP/Jazmin and home/self care is his goal.CM has initiated and will follow for dc planning. PCP is Dr. Aaliyah Carrillo and Patient's car is here for transport at dc.
--- NOTE | 2024-12-22 11:29 | P.PNCA_ITS ---
Subjective Subjective Date of Service: 12/22/24 Interval history: Seen examined at bedside. He was off Cardizem drip because there was some bradycardia noted overnight. Telemetry is difficult to navigate in the emergency department and unclear when this happened. His heart rate was 140s in the morning. Physical Exam Vital Signs: Last Vital Signs Temp 97.6 F 12/22/24 05:56 Pulse 99 12/22/24 10:13 Resp 20 12/22/24 10:13 BP 104/50 L 12/22/24 10:13 Pulse Ox 95 12/22/24 10:13 O2 Del Method Room Air 12/22/24 10:13 BMI result Body Mass Index 30.0 GENERAL APPEARANCE: in no acute distress, pleasant. NECK: no carotid bruit, + jugular venous distention. SKIN: no suspicious lesions, warm and dry. HEART: Apical holosystolic murmur., regular rate and rhythm. Tachycardic. LUNGS: clear to auscultation bilaterally. ABDOMEN: soft, nontender. EXTREMITIES: + edema. PERIPHERAL PULSES: equal. NEUROLOGIC: No gross deficits, AAO X 3 Objective Labs and Meds 12/22/24 03:42 12/22/24 03:42 Lab results: Laboratory Results - last 24 hr 12/21/24 12/21/24 12/22/24 10:52 11:36 03:42 WBC 7.0 RBC 4.23 L Hgb 12.5 L Hct 38.7 L MCV 91.5 MCH 29.6 MCHC 32.3 RDW 14.4 Plt Count 252 MPV 11.3 Immature Gran % (Auto) 0.4 Neut % (Auto) 64.0 Lymph % (Auto) 22.1 [place] % (Auto) 10.8 Eos % (Auto) 2.1 Baso % (Auto) 0.6 Lymph # (Auto) 1.6 [place] # (Auto) 0.8 Eos # (Auto) 0.2 Baso # (Auto) 0.0 Abs Immat Gran (auto) 0.03 Absolute Neuts (auto) 4.5 Absolute Nucleated RBC 0.000 Nucleated RBC % (auto) 0.0 Sodium 139 Potassium 3.8 Chloride 106 Carbon Dioxide 26 Anion Gap 11 L BUN 17 H Creatinine 1.10 Estim Creat Clear Calc 74.5 Estimated GFR > 60 Random Glucose 110 Calcium 8.7 D Magnesium 1.9 Total Bilirubin 0.5 AST 22 ALT 15 Alkaline Phosphatase 49 Troponin I High Sens 9.3 Total Protein 5.6 L Albumin 3.6 TSH 0.05 L Free T4 1.41 Imaging Radiologist's impression: Impressions Venous Duplex 12/21/24 11:15 IMPRESSION: No evidence of deep venous thrombosis involving the bilateral lower extremities. Electronically signed by: Nitish Deluna MD 12/21/2024 11:41 AM [facility] [place] Note: A&P Assessment and plan (1) Atrial flutter: Status: Acute Plan Pleasant 79 year gentleman presenting with atrial flutter. Heart rates has been fluctuating. Overall quite tachycardic in the morning. Increasing metoprolol to 50 mg twice a day. Cardizem 30 mg 4 times a day has been added by the medicine team which can be continued for now. We will review echocardiography and if he has any LV dysfunction then we may have to stop Cardizem and use digoxin. Continue Eliquis. We will follow along with you. Thank you for allowing me to participate in the care of your patient. Please feel free to contact me if you have any questions. Time Spent With Patient Time: Total time managing care of this patient today ____ minutes. Progress Note: Quality Stroke Does the patient have a stroke diagnosis?: No Procedures Date of Service Date of Service: 12/22/24
--- NOTE | 2024-12-22 13:00 | CA_ITS ---
Transthoracic Echocardiogram Patient (Last, First, Middle): Evert Clemons, Gender: Male Date of : 1945 Age: 79 Procedure Date: 12/22/2024 Procedure Type: Transthoracic Echocardiogram [place] [facility] [place] Height: 190.5 cm Weight: 108.41 kg BSA: 2.37 m2 Heart Rate: bpm BP: 100 / 65 mmHg Channel Layer: Referring MD: Jonathan Dailey MD Symptoms: Assess LVEF, atrial flutter Study Quality: Adequate ECG Rhythm: Atrial flutter Conclusions: - Normal left ventricular size and systolic function. There is mildly increased left ventricular wall thickness. The visually estimated ejection fraction is between 55-60%. - Mildly increased right ventricular cavity size. There is normal right ventricular systolic function. Findings Left Ventricle Normal left ventricular size and systolic function. There is mildly increased left ventricular wall thickness. The visually estimated ejection fraction is between 55-60%. Right Ventricle Mildly increased right ventricular cavity size. There is normal right ventricular systolic function. Mitral Valve The mitral valve appears normal. There is mild mitral valve regurgitation. Tricuspid Valve Normal tricuspid valve structure. There is trace tricuspid valve regurgitation. Mildly elevated right atrial pressure. Venous The inferior vena cava is normal in size and collapses less than 50% with inspiration. Pericardium/Pleural There is no evidence of pericardial effusion. Prior Study Comparison No significant change compared to prior study dated: 07/30/2024. Measurements 2D Linear Measurements IVSd: 1.31 0.6-0.9/0.6-1.0 cm LVIDd: 3.97 3.9-5.3/4.2-5.9 cm LVIDd Index: 1.68 2.4-3.2/2.2-3.1 cm/m2 LVIDs: 3.08 2.0-3.6 cm LVPWd: 1.27 0.7-1.1 cm LA Diam: 4.10 2.7-3.8/3.0-4.0 cm LAIDs Index: 1.73 1.5-2.3 cm/m2 LV Mass: 227.18 67-162/88-224 g LV Mass Index: 95.86 43-95/49-115 g/m2 LVOT Diam: 2.30 3.0+(-)1.3 cm 2D Systolic Function EF 4C: 51.00 >55% EF 2C: 62.80 >55% EF BiP: 57.50 >55% LVOT LVOT Diam: 2.30 LVOT Area: 4.15 Updated in Other Vendor System with Status of Final Jonathan Dailey MD electronically signed on 12/22/2024 9:39:31 PM with status of Final
--- NOTE | 2024-12-22 15:06 | P.PNIM_ITS ---
Subjective Subjective Date of Service: 12/22/24 Interval History: Pt seen in ed, pt denies any sx, states when he exerts he feels slightly SOB, HR still fluctuating between high 100 to low 80ies echo pending cards following no cardizem gtt per cards Review of Systems -ve except as stated above Physical Exam 2 Exam: Exam: A&Ox 3 abdomen soft non tender Heart Aflutter on tele resp on RA moving all extremities Vital Signs: Vital Signs: Last Vital Signs Temp 97.6 F 12/22/24 05:56 Pulse 76 12/22/24 12:17 Resp 20 12/22/24 12:17 BP 100/65 12/22/24 12:17 Pulse Ox 97 12/22/24 12:17 O2 Del Method Room Air 12/22/24 12:17 BMI result Body Mass Index 30.0 Objective Data Active Medications Acetaminophen (Acetaminophen 325 Mg Tablet) 650 mg PO Q6H PRN PRN Reason: Pain, Mild 1-3,fever,headache Albuterol Sulfate (Albuterol Sulfate 90 Mcg 8 Gm Inhaler) 2 puff INHALE Q4H PRN PRN Reason: shortness of breath or wheezing Apixaban (Apixaban 5 Mg Tablet) 5 mg PO BID [facility] Last Admin: 12/22/24 09:03 Dose: 5 mg Documented By: LYNETTE Atorvastatin Calcium (Atorvastatin Calcium 20 Mg Tablet) 20 mg PO DAILY [facility] Last Admin: 12/22/24 09:03 Dose: 20 mg Documented By: LYNETTE Calcium Carbonate (Calcium Carbonate 750 Mg Tab.Chew) 750 mg PO Q4H PRN PRN Reason: Heartburn Diltiazem HCl (Diltiazem Hcl 30 Mg Tablet) 30 mg PO QID [facility]; Protocol Last Admin: 12/22/24 09:04 Dose: 30 mg Documented By: LYNETTE Furosemide (Furosemide 20 Mg/2 Ml Vial) 20 mg IVPUSH BID@0900,1800 [facility]; Protocol Last Admin: 12/22/24 09:04 Dose: 20 mg Documented By: LYNETTE Levothyroxine Sodium (Levothyroxine Sodium 200 Mcg Tablet) 200 mcg PO DAILY@0600 [facility] Last Admin: 12/22/24 07:18 Dose: 200 mcg Documented By: LYNETTE Magnesium Hydroxide (Milk Of Magnesia 30 Ml Oral.Susp) 30 ml PO DAILY PRN PRN Reason: Constipation Melatonin (Melatonin 3 Mg Tablet) 6 mg PO BEDTIME PRN PRN Reason: Insomnia Metoprolol Tartrate (Metoprolol Tartrate 50 Mg Tablet) 50 mg PO BID [facility]; Protocol Ondansetron HCl (Ondansetron Hcl 4 Mg/2 Ml Vial) 4 mg IVPUSH Q8H PRN PRN Reason: Nausea and Vomiting Sodium Chloride (0.9 % Sodium Chloride Flush 3 Ml Syringe) 3 ml IVFLUSH QSHIFT [facility] Last Admin: 12/22/24 09:06 Dose: 3 ml Documented By: LYNETTE Labs 12/22/24 03:42 12/22/24 03:42 Labs: Laboratory Results - last 24 hr 12/22/24 03:42 MCV 91.5 MCH 29.6 MCHC 32.3 RDW 14.4 Plt Count 252 MPV 11.3 Immature Gran % (Auto) 0.4 Neut % (Auto) 64.0 Lymph % (Auto) 22.1 [place] % (Auto) 10.8 Eos % (Auto) 2.1 Baso % (Auto) 0.6 Lymph # (Auto) 1.6 [place] # (Auto) 0.8 Eos # (Auto) 0.2 Baso # (Auto) 0.0 Abs Immat Gran (auto) 0.03 Absolute Neuts (auto) 4.5 Absolute Nucleated RBC 0.000 Nucleated RBC % (auto) 0.0 Anion Gap 11 L Estim Creat Clear Calc 74.5 Estimated GFR > 60 Random Glucose 110 Calcium 8.7 D Total Bilirubin 0.5 AST 22 ALT 15 Alkaline Phosphatase 49 Total Protein 5.6 L Albumin 3.6 Assessment and Plan (1) Atrial flutter: Status: Acute (2) Exertional dyspnea: Status: Acute (3) Hyperlipidemia: Status: Acute Plan 79-year-old man admitted with new onset of atrial flutter and mild congestive heart failure New onset atrial flutter Unknown etiology Started on Cardizem drip in the ER , did not tolerate it well, became mell per report, cardiology following dc gtt start on PO metoprolol and cardizem cont eliquis 5 mg bid telemonitor echo pending Acute congestive heart failure, unspecified BNP 3398 Lasix IV 20 mg b.i.d. for now Daily weights Strict intake and output History of thyroidectomy Continue levothyroxine Hyperlipidemia Continue statin DVT prophylaxis with Eliquis Full code Quality Stroke Does the patient have a stroke diagnosis?: No VTE Prior VTE?: No VTE Risk Level:: Medical - moderate - high VTE Device Contraindication: Treatment Not Indicated VTE Drug Contraindication: N/A - Med Ordered
--- NOTE | 2024-12-22 15:22 | PC.NURSE ---
While giving patient his scheduled PO Cardizem, BP noted to be 90s/50s, HR fluctuating 100s-140s, asymptomatic. MD made aware of soft BPs. Per MD Ya- hold off on PO Cardizem. Vitals updated in worklist. Call arroyo within reach, all needs met at this time.
[2024-12-23] VITALS (7 sets, daily range): BP systolic 100–128; BP diastolic 52–70; PULSE 49–146; RESP 16–20; TEMP 36.4–37.2; O2SAT 90–95; BMI 28.5
[2024-12-23] MEDS: Furosemide 20 MG/2 ML VIAL IVPUSH ×2 (08:37→17:26)
[2024-12-23] MEDS: 0.9 % Sodium Chloride Flush 3 ML SYRINGE IVFLUSH ×2 (08:38→17:26)
[2024-12-23] MEDS: dilTIAZem HCL CD 120 MG CAP.ER.DEG PO (08:41)
--- NOTE | 2024-12-23 10:17 | MHC.CM.PN ---
Per ROUNDS discussion, Patient is not yet medically cleared for dc (Cardioversion tomorrow); home is the goal and CM will continue to follow.
--- NOTE | 2024-12-23 14:56 | PM.PNCARD ---
Subjective Subjective Date of Service: 12/23/24 Interval history: On Cardizem and p.o. metoprolol and overall heart rates are better controlled today. He did some ambulation in the hallways today when heart rate increased to 130 beats per minute but improved quickly. Physical Exam Vital Signs: Last Vital Signs Temp 97.8 F 12/23/24 10:50 Pulse 74 12/23/24 10:50 Resp 18 12/23/24 10:50 BP 102/52 L 12/23/24 10:50 Pulse Ox 95 12/23/24 10:50 O2 Del Method Room Air 12/23/24 10:50 BMI result Body Mass Index 28.5 GENERAL APPEARANCE: in no acute distress, pleasant. NECK: no carotid bruit, mild jugular venous distention. SKIN: no suspicious lesions, warm and dry. HEART: Apical holosystolic murmur., regular rate and rhythm. LUNGS: clear to auscultation bilaterally. ABDOMEN: soft, nontender. EXTREMITIES: + edema. PERIPHERAL PULSES: equal. NEUROLOGIC: No gross deficits, AAO X 3 Objective Labs and Meds 12/22/24 03:42 12/22/24 03:42 Progress Note: A&P Assessment and plan (1) Atrial flutter: Status: Acute Plan New onset atrial flutter in 79 year gentleman. He is on Cardizem and metoprolol with reasonable rate controlled currently. ECHO has shown normal left ventricular function with mild dilation of right ventricle and preserved RV function. Continue Cardizem 120 mg and metoprolol 50 mg twice a day. With ambulation his heart rate increased but he recovered very quickly. He has vocal cord paralysis and I am unsure how well he is going to tolerate longer sedation with JT. Currently I am opting for rate control strategy along with anticoagulation and our plan will be to discharge him home and do outpatient cardioversion in 4 weeks. We will monitor till tomorrow morning on tele and if he has any issues with poor rate control overnight then make him NPO for potential JT cardioversion tomorrow. Thank you for allowing me to participate in the care of your patient. Please feel free to contact me if you have any questions. Time Spent With Patient Time: Total time managing care of this patient today ____ minutes. Progress Note: Quality Stroke Does the patient have a stroke diagnosis?: No Procedures Date of Service Date of Service: 12/23/24
--- NOTE | 2024-12-23 21:08 | HO.PM.IMPN ---
Subjective Subjective Date of Service: 12/23/24 Interval History: Episode of tachycardia to 146 last night; given metoprolol 5mg IV with some relief Pt was tachycardic again during morning rounds, persistently in the 130s-140s even an hour after po metoprolol 50mg and diltiazem 120mg BP soft at 95/62 Largely asymptomatic: some fatigue, but no SOB or palpitations Denies lightheadedness or dizziness No chest pain or pressure Heartrate eventually settled in the early afternoon to the 70s Review of Systems Review of Systems: Yes all other systems are reviewed and are negative Physical Exam Exam: Exam: General: AOx3, no acute distress Resp: CTA bilaterally CVS: Irregularly irregular rhythm, tachycardic GI: +BS, NT, no distention Skin: Warm, dry Neuro: Cranial nerves II-XII grossly intact bilaterally. Motor grossly intact bilaterally Extremities: No edema Psych: Appropriate affect Vital Signs: Vital Signs: Last Vital Signs Temp 98.1 F 12/23/24 19:13 Pulse 54 12/23/24 19:13 Resp 16 12/23/24 19:13 BP 128/67 12/23/24 19:13 Pulse Ox 95 12/23/24 19:13 O2 Del Method Room Air 12/23/24 19:13 BMI result Body Mass Index 28.5 Objective Data Active Medications Acetaminophen (Acetaminophen 325 Mg Tablet) 650 mg PO Q6H PRN PRN Reason: Pain, Mild 1-3,fever,headache Albuterol Sulfate (Albuterol Sulfate 90 Mcg 8 Gm Inhaler) 2 puff INHALE Q4H PRN PRN Reason: shortness of breath or wheezing Apixaban (Apixaban 5 Mg Tablet) 5 mg PO BID [facility] Last Admin: 12/23/24 20:48 Dose: 5 mg Documented By: CORONA Atorvastatin Calcium (Atorvastatin Calcium 20 Mg Tablet) 20 mg PO DAILY [facility] Last Admin: 12/23/24 08:37 Dose: 20 mg Documented By: PAM Calcium Carbonate (Calcium Carbonate 750 Mg Tab.Chew) 750 mg PO Q4H PRN PRN Reason: Heartburn Diltiazem HCl (Diltiazem Hcl Cd 120 Mg Cap.Er.Deg) 120 mg PO DAILY [facility]; Protocol Last Admin: 12/23/24 08:41 Dose: 120 mg Documented By: PAM Furosemide (Furosemide 20 Mg/2 Ml Vial) 20 mg IVPUSH BID@0900,1800 [facility]; Protocol Last Admin: 12/23/24 17:26 Dose: 20 mg Documented By: PAM Levothyroxine Sodium (Levothyroxine Sodium 200 Mcg Tablet) 200 mcg PO DAILY@0600 [facility] Last Admin: 12/23/24 05:38 Dose: 200 mcg Documented By: ERIKA Magnesium Hydroxide (Milk Of Magnesia 30 Ml Oral.Susp) 30 ml PO DAILY PRN PRN Reason: Constipation Melatonin (Melatonin 3 Mg Tablet) 6 mg PO BEDTIME PRN PRN Reason: Insomnia Metoprolol Tartrate (Metoprolol Tartrate 50 Mg Tablet) 50 mg PO BID [facility]; Protocol Last Admin: 12/23/24 20:48 Dose: 50 mg Documented By: CORONA Ondansetron HCl (Ondansetron Hcl 4 Mg/2 Ml Vial) 4 mg IVPUSH Q8H PRN PRN Reason: Nausea and Vomiting Sodium Chloride (0.9 % Sodium Chloride Flush 3 Ml Syringe) 3 ml IVFLUSH QSHIFT [facility] Last Admin: 12/23/24 17:26 Dose: 3 ml Documented By: PAM Labs 12/22/24 03:42 12/22/24 03:42 Assessment and Plan (1) Atrial flutter: Status: Acute Plan 79-year-old man admitted with new onset of atrial flutter and mild congestive heart failure New onset atrial flutter Unknown etiology Started on Cardizem drip in the ER but was stopped as pt unable to tolerate it due to bradycardia HR returned to 130-140s overnight and in the morning, now better controlled Started on dilitazem 120mg daily and metoprolol 50mg bid Continue Eliquis 5mg bid Echocardiogram showing normal left ventricular function with mild dilation of right ventricle and preserved RV function. Monitor on telemetry cardiology consulted: will attempt JT cardioversion tomorrow if HR is elevated; if HR controlled, outpatient cardioversion in 4 weeks Acute congestive heart failure, unspecified BNP 3398 Lasix IV 20 mg b.i.d. Cardiology to follow Daily weights Strict intake and output History of thyroidectomy Continue levothyroxine Hyperlipidemia Continue statin DVT prophylaxis with Eliquis Full code Pt requires additional hospitalization due to monitoring for response to po therapies for a flutter with RVR. Pt will either need cardioversion in the morning or discharge home if HR controlled. Quality Stroke Does the patient have a stroke diagnosis?: No VTE Prior VTE?: No VTE Risk Level:: Medical - moderate - high VTE Device Contraindication: Treatment Not Indicated VTE Drug Contraindication: N/A - Med Ordered
[2024-12-24 03:52] VITALS: BP 99/64; PULSE 69; RESP 18; TEMP 36.7; O2SAT 94
[2024-12-24 06:00] VITALS: BMI 27.7
[2024-12-24 07:01] VITALS: BP 111/67; PULSE 109; RESP 20; TEMP 36.9; O2SAT 96
[2024-12-24 07:34] LABS: Anion Gap 10 (12-20); Blood Urea Nitrogen 14 mg/dL (9-16); Calcium 8.7 mg/dL (8.4-10.2); Carbon Dioxide 27 mmol/L (22-29); Chloride 107 mmol/L (96-108); Creatinine Clr Calc Pharmacy 71.0; Estimated Glomerular Filt Rate > 60; Potassium 3.9 mmol/L (3.3-5.1); Sodium 140 mmol/L (135-145)
[2024-12-24] MEDS: dilTIAZem HCL CD 120 MG CAP.ER.DEG PO (08:11)
[2024-12-24] MEDS: Furosemide 20 MG/2 ML VIAL IVPUSH (08:12)
[2024-12-24] MEDS: 0.9 % Sodium Chloride Flush 3 ML SYRINGE IVFLUSH ×3 (08:13→20:11)
[2024-12-24 08:25] LABS: NT Pro B Type Natriuretic Pept 1762.2 pg/mL (<300)
--- NOTE | 2024-12-24 11:07 | PM.PNCARD ---
Subjective Subjective Date of Service: 12/24/24 Interval history: Seen and examined at bedside. Heart rates are stable at rest but when he ambulates he gets tachycardia. He quickly recovers from that. Physical Exam Vital Signs: Last Vital Signs Temp 98.4 F 12/24/24 07:01 Pulse 109 H 12/24/24 07:01 Resp 20 12/24/24 07:01 BP 111/67 12/24/24 07:01 Pulse Ox 96 12/24/24 07:01 O2 Del Method Room Air 12/24/24 07:01 BMI result Body Mass Index 27.7 GENERAL APPEARANCE: in no acute distress, pleasant. NECK: no carotid bruit, mild jugular venous distention. SKIN: no suspicious lesions, warm and dry. HEART: Apical holosystolic murmur., regular rate and rhythm. LUNGS: clear to auscultation bilaterally. ABDOMEN: soft, nontender. EXTREMITIES: + edema. PERIPHERAL PULSES: equal. NEUROLOGIC: No gross deficits, AAO X 3 Objective Labs and Meds 12/22/24 03:42 12/24/24 06:46 Lab results: Laboratory Results - last 24 hr 12/24/24 06:46 Sodium 140 Potassium 3.9 Chloride 107 Carbon Dioxide 27 Anion Gap 10 L BUN 14 Creatinine 1.04 Estim Creat Clear Calc 71.0 Estimated GFR > 60 Random Glucose 100 Calcium 8.7 NT-Pro-B Natriuret Pep 1762.2 H Progress Note: A&P Assessment and plan (1) Atrial flutter: Status: Acute Plan Pleasant 79 year gentleman presenting for atrial flutter. LV function is normal by echocardiography. He is on Cardizem and metoprolol with reasonable rate control at rest. With ambulation his heart rate increases but he recovers quickly. He had thyroid cancer and partial vocal cord paralysis in the past. He also has COPD. He is fairly sedentary and does not do any significant activities. I think he is stable to go home and we can see him in the office in couple of weeks. We will arrange an outpatient cardioversion for him. Thank you for allowing me to participate in the care of your patient. Please feel free to contact me if you have any questions. Time Spent With Patient Time: Total time managing care of this patient today ____ minutes. Progress Note: Quality Stroke Does the patient have a stroke diagnosis?: No Procedures Date of Service Date of Service: 12/24/24
[2024-12-24 15:39] VITALS: BP 123/73; PULSE 50; RESP 18; TEMP 36.3; O2SAT 93
--- NOTE | 2024-12-24 17:15 | HO.PM.IMPN ---
Subjective Subjective Date of Service: 12/24/24 Interval History: Occasional lightheadedness and dizziness at both rest and with exertion No palpitations Pt continued to go in and out of RVR overnight; HR in 130-140s approximately 40% of the time BP slightly better today Review of Systems Review of Systems: Yes all other systems are reviewed and are negative Physical Exam Exam: Exam: General: AOx3, no acute distress Resp: CTA bilaterally CVS: Irregularly irregular rhythm, tachycardic GI: +BS, NT, no distention Skin: Warm, dry Neuro: Cranial nerves II-XII grossly intact bilaterally. Motor grossly intact bilaterally Extremities: No edema Psych: Appropriate affect Vital Signs: Vital Signs: Last Vital Signs Temp 97.3 F 12/24/24 15:39 Pulse 50 12/24/24 15:39 Resp 18 12/24/24 15:39 BP 123/73 12/24/24 15:39 Pulse Ox 93 12/24/24 15:39 O2 Del Method Room Air 12/24/24 15:39 BMI result Body Mass Index 27.7 Objective Data Active Medications Acetaminophen (Acetaminophen 325 Mg Tablet) 650 mg PO Q6H PRN PRN Reason: Pain, Mild 1-3,fever,headache Albuterol Sulfate (Albuterol Sulfate 90 Mcg 8 Gm Inhaler) 2 puff INHALE Q4H PRN PRN Reason: shortness of breath or wheezing Apixaban (Apixaban 5 Mg Tablet) 5 mg PO BID [facility] Last Admin: 12/24/24 08:21 Dose: 5 mg Documented By: ELLIOT Atorvastatin Calcium (Atorvastatin Calcium 20 Mg Tablet) 20 mg PO DAILY [facility] Last Admin: 12/24/24 08:11 Dose: 20 mg Documented By: ELLIOT Calcium Carbonate (Calcium Carbonate 750 Mg Tab.Chew) 750 mg PO Q4H PRN PRN Reason: Heartburn Diltiazem HCl (Diltiazem Hcl Cd 120 Mg Cap.Er.Deg) 120 mg PO DAILY [facility]; Protocol Last Admin: 12/24/24 08:11 Dose: 120 mg Documented By: ELLIOT Furosemide (Furosemide 20 Mg/2 Ml Vial) 20 mg IVPUSH BID@0900,1800 [facility]; Protocol Last Admin: 12/24/24 08:12 Dose: 20 mg Documented By: ELLIOT Levothyroxine Sodium (Levothyroxine Sodium 200 Mcg Tablet) 200 mcg PO DAILY@0600 [facility] Last Admin: 12/24/24 05:39 Dose: Not Given Documented By: CORONA Non-Admin Reason: NPO Magnesium Hydroxide (Milk Of Magnesia 30 Ml Oral.Susp) 30 ml PO DAILY PRN PRN Reason: Constipation Melatonin (Melatonin 3 Mg Tablet) 6 mg PO BEDTIME PRN PRN Reason: Insomnia Metoprolol Tartrate (Metoprolol Tartrate 50 Mg Tablet) 50 mg PO BID [facility]; Protocol Last Admin: 12/24/24 08:11 Dose: 50 mg Documented By: ELLIOT Ondansetron HCl (Ondansetron Hcl 4 Mg/2 Ml Vial) 4 mg IVPUSH Q8H PRN PRN Reason: Nausea and Vomiting Sodium Chloride (0.9 % Sodium Chloride Flush 3 Ml Syringe) 3 ml IVFLUSH QSHIFT [facility] Last Admin: 12/24/24 08:13 Dose: 3 ml Documented By: ELLIOT Labs 12/22/24 03:42 12/24/24 06:46 Labs: Laboratory Results - last 24 hr 12/24/24 06:46 Anion Gap 10 L Estim Creat Clear Calc 71.0 Estimated GFR > 60 Random Glucose 100 Calcium 8.7 NT-Pro-B Natriuret Pep 1762.2 H Assessment and Plan (1) Atrial flutter: Status: Acute Plan 79-year-old man admitted with new onset of atrial flutter and mild congestive heart failure New onset atrial flutter Unknown etiology Started on Cardizem drip in the ER but was stopped as pt unable to tolerate it due to bradycardia HR has been intermittently in 130-140s at rest and with exertion Started on dilitazem 120mg daily and metoprolol 50mg bid; hold diltiazem tomorrow morning prior to cardioversion Continue Eliquis 5mg bid Echocardiogram showing normal left ventricular function with mild dilation of right ventricle and preserved RV function. Monitor on telemetry cardiology consulted: will attempt JT cardioversion tomorrow at 2pm Elevated BNP BNP 3398, likely secondary to atrial flutter Received Lasix IV 20 mg b.i.d., since discontinued Echocardiogram showed normal LV systolic function with EF 55-60% Cardiology following History of thyroidectomy Continue levothyroxine Hyperlipidemia Continue statin DVT prophylaxis with Eliquis Full code Pt requires additional hospitalization as he has failed po therapies. Plan is for pt to undergo JT cardioversion tomorrow afternoon. Quality Stroke Does the patient have a stroke diagnosis?: No VTE Prior VTE?: No VTE Risk Level:: Medical - moderate - high VTE Device Contraindication: Treatment Not Indicated VTE Drug Contraindication: N/A - Med Ordered
[2024-12-24 19:09] VITALS: BP 115/64; PULSE 50; RESP 18; TEMP 36.6; O2SAT 97
[2024-12-24 23:30] VITALS: BP 105/63; PULSE 55; RESP 19; TEMP 36.3; O2SAT 95
[2024-12-25] VITALS (10 sets, daily range): BP systolic 103–133; BP diastolic 55–72; PULSE 50–129; RESP 10–18; TEMP 36.4–36.7; O2SAT 93–98; BMI 27.2
--- NOTE | 2024-12-25 | ECG_ITS ---
Test Reason : post cardioversion Blood Pressure : */* mmHG Vent. Rate : 67 BPM Atrial Rate : 67 BPM P-R Int : 180 ms QRS Dur : 86 ms QT Int : 420 ms P-R-T Axes : 36 -20 27 degrees QTcB Int : 443 ms Normal sinus rhythm Possible Left atrial enlargement Minimal voltage criteria for LVH, may be normal variant ( R in aVL ) Borderline ECG When compared with ECG of 25-Dec-2024 15:18, No significant change was found Referred By: Jonathan Dailey Electronically Signed By:
[2024-12-25] MEDS: 0.9 % Sodium Chloride Flush 3 ML SYRINGE IVFLUSH ×3 (07:46→21:02)
--- NOTE | 2024-12-25 10:20 | MHC.CM.PN ---
Per ROUNDS discussion, Patient is undergoing a Cardioversion today at 2PM and pending Cardiology, may be ready to dc today. CM will follow.
--- NOTE | 2024-12-25 13:41 | P.CONAN_ITS ---
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 (Acute) Sore throat (Acute) Chest pain (Acute) Dysphagia (Acute) Mass of arm (Acute) Hyperlipidemia (Acute) Neuropathy (Acute) Past Medical History Medical History Thyroid cancer Agent orange exposure COPD (chronic obstructive pulmonary disease) Family History Family History Mother Coronary artery disease Pulmonary embolism Father Cancer of prostate Family history of problems with anesthesia: No Surgical History Surgical History Hx of spinal surgery History of ptosis repair Voice impairment History of transurethral resection of prostate Epidermal inclusion cyst History of right knee surgery S/P foot surgery, right Right shoulder injury History of thyroidectomy Neoplasm of right patella Inguinal hernia bilateral, non-recurrent Left hand pain History of Problems with Anesthesia: No Social History Social History Household Members: Significant Other Housing: House Do you presently have visiting nurse or other home services: No Alcohol intake: never Patient Tobacco Use Status: Former Tobacco user Cigarette Packs Per Day: 0.5 Years Smoked: 3 e-Cigarette/Vaping Use: Never Used Second Hand Smoke Exposure: No service: Yes Current occupational status: retired Cognitive needs: No Hearing needs: Yes (bilateral hearing aids) Vision needs: Yes (glasses) Meds Allergies Allergy/AdvReac Type Severity Reaction Status Date / Time bee pollen (bee stings) Allergy Severe Anaphylaxis Verified 12/21/24 10:44 Active Medications: Current Medications Acetaminophen (Acetaminophen 325 Mg Tablet) 650 mg PO Q6H PRN PRN Reason: Pain, Mild 1-3,fever,headache Albuterol Sulfate (Albuterol Sulfate 90 Mcg 8 Gm Inhaler) 2 puff INHALE Q4H PRN PRN Reason: shortness of breath or wheezing Apixaban (Apixaban 5 Mg Tablet) 5 mg PO BID [facility] Last Admin: 12/25/24 07:46 Dose: 5 mg Atorvastatin Calcium (Atorvastatin Calcium 20 Mg Tablet) 20 mg PO DAILY [facility] Last Admin: 12/25/24 07:46 Dose: 20 mg Calcium Carbonate (Calcium Carbonate 750 Mg Tab.Chew) 750 mg PO Q4H PRN PRN Reason: Heartburn Diltiazem HCl (Diltiazem Hcl Cd 120 Mg Cap.Er.Deg) 120 mg PO DAILY [facility]; Protocol On Hold: 12/24/24 17:23 Last Admin: 12/24/24 08:11 Dose: 120 mg Levothyroxine Sodium (Levothyroxine Sodium 200 Mcg Tablet) 200 mcg PO DAILY@0600 [facility] Last Admin: 12/25/24 05:38 Dose: 200 mcg Magnesium Hydroxide (Milk Of Magnesia 30 Ml Oral.Susp) 30 ml PO DAILY PRN PRN Reason: Constipation Melatonin (Melatonin 3 Mg Tablet) 6 mg PO BEDTIME PRN PRN Reason: Insomnia Metoprolol Tartrate (Metoprolol Tartrate 50 Mg Tablet) 50 mg PO BID [facility]; Protocol Last Admin: 12/25/24 07:46 Dose: 50 mg Ondansetron HCl (Ondansetron Hcl 4 Mg/2 Ml Vial) 4 mg IVPUSH Q8H PRN PRN Reason: Nausea and Vomiting Sodium Chloride (0.9 % Sodium Chloride Flush 3 Ml Syringe) 3 ml IVFLUSH QSHIFT [facility] Last Admin: 12/25/24 07:46 Dose: 3 ml Home Medications ?Medication ?Instructions ?Recorded ?Confirmed ?Last Taken ?Type tiotropium 2.5 mcg-olodaterol 2.5 2 puff inhalation DA RUBIA 07/15/24 12/21/24 12/20/24 History mcg/actuation mist for inhalation (Stiolto Respimat) levothyroxine 200 mcg tablet 200 mcg PO DAILY@0600 05/1212/21/24 12/20/24 History Exam Height,Weight and Vital Signs: Height 6 ft 3 in Weight 98.6 kg Last Vital Signs Temp 98.1 F 12/25/24 10:52 Pulse 70 12/25/24 10:52 Resp 18 12/25/24 10:52 BP 103/60 12/25/24 10:52 Pulse Ox 97 12/25/24 10:52 O2 Del Method Room Air 12/25/24 10:52 Pertinent Lab Results Pertinent Lab Results: Laboratory Tests 12/21/24 12/21/24 12/22/24 10:52 11:36 03:42 WBC 6.2 7.0 RBC 4.59 L 4.23 L Hgb 13.7 L 12.5 L Hct 42.5 38.7 L MCV 92.6 91.5 MCH 29.8 29.6 MCHC 32.2 32.3 RDW 14.5 14.4 Plt Count 247 252 MPV 11.1 11.3 Immature Gran % (Auto) 0.2 0.4 Neut % (Auto) 70.5 64.0 Lymph % (Auto) 17.7 L 22.1 [place] % (Auto) 9.2 10.8 Eos % (Auto) 1.9 2.1 Baso % (Auto) 0.5 0.6 Lymph # (Auto) 1.1 L 1.6 [place] # (Auto) 0.6 0.8 Eos # (Auto) 0.1 0.2 Baso # (Auto) 0.0 0.0 Abs Immat Gran (auto) 0.01 0.03 Absolute Neuts (auto) 4.4 4.5 Absolute Nucleated RBC 0.000 0.000 Nucleated RBC % (auto) 0.0 0.0 PT 13.3 H INR 1.2 H Sodium 141 139 Potassium 4.3 3.8 Chloride 110 H 106 Carbon Dioxide 26 26 Anion Gap 9 L 11 L BUN 13 17 H Creatinine 1.02 1.10 Estim Creat Clear Calc 80.4 74.5 Estimated GFR > 60 > 60 Random Glucose 107 110 Calcium 9.5 8.7 D Magnesium 1.9 Total Bilirubin 1.1 H 0.5 AST 26 22 ALT 16 15 Alkaline Phosphatase 60 49 Troponin I High Sens 9.3 NT-Pro-B Natriuret Pep 3398.9 H Total Protein 6.6 5.6 L Albumin 4.2 3.6 TSH 0.05 L Free T4 1.41 12/24/24 06:46 WBC RBC Hgb Hct MCV MCH MCHC RDW Plt Count MPV Immature Gran % (Auto) Neut % (Auto) Lymph % (Auto) [place] % (Auto) Eos % (Auto) Baso % (Auto) Lymph # (Auto) [place] # (Auto) Eos # (Auto) Baso # (Auto) Abs Immat Gran (auto) Absolute Neuts (auto) Absolute Nucleated RBC Nucleated RBC % (auto) PT INR Sodium 140 Potassium 3.9 Chloride 107 Carbon Dioxide 27 Anion Gap 10 L BUN 14 Creatinine 1.04 Estim Creat Clear Calc 71.0 Estimated GFR > 60 Random Glucose 100 Calcium 8.7 Magnesium Total Bilirubin AST ALT Alkaline Phosphatase Troponin I High Sens NT-Pro-B Natriuret Pep 1762.2 H Total Protein Albumin TSH Free T4 Airway Mallampati Class: III TM Dist: >3cm Neck ROM: Limited Heart: atrial flutter Lungs: cta Assessment and Plan Assessment Anesthesia Assessment: Anesthesia Plan Discussed and Chart Reviewed Final Anesthetic Review Family History of Problems with Anesthesia: No History of Problems with Anesthesia: No NPO: Yes ASA Class: III Final Preanesthetic Review: No Changes in Pt Med Stat, Meds/Allgs Chart Reviewed and Consent Obtained/Reviewed Patient Risk: Intermediate Procedure Risk: Intermediate Anesthetic Plan Anesthetic Plan: MAC: Disposition: Standard PACU
[2024-12-25] MEDS: Lactated Ringers 1,000 ML 80 ML IVCONT (13:45)
--- NOTE | 2024-12-25 14:02 | CA_ITS ---
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 Limited study done because the patient has vocal cord paralysis and risk of aspiration. ??? No LA or WILY thrombus. Findings Left Ventricle Normal left ventricular size and systolic function. There is no evidence of regional wall motion abnormalities. Right Ventricle Normal right ventricular cavity size and systolic function. Atria There is no evidence of a thrombus in the left atrial appendage. There is no evidence of a patent foramen ovale. LA is dilated. Aortic Valve There is a normal trileaflet aortic valve. Tricuspid Valve Normal tricuspid valve structure. There is trace tricuspid valve regurgitation. Great Vessels All visible segments of the aorta are normal in size. Pericardium/Pleural There is no evidence of pericardial effusion. Prior Study Comparison No change compared to prior study. Updated by Jonathan Dailey on 02:01 PM with Status of Final Jonathan Dailey MD electronically signed on 12/27/2024 2:01:19 PM with status of Final
--- NOTE | 2024-12-25 14:51 | PM.PNCARD ---
Subjective Subjective Date of Service: 12/25/24 Interval history: Seen examined at bedside. He is for cardioversion today. Physical Exam Vital Signs: Last Vital Signs Temp 98.0 F 12/25/24 13:41 Pulse 129 H 12/25/24 13:41 Resp 16 12/25/24 13:41 BP 120/68 12/25/24 13:41 Pulse Ox 98 12/25/24 13:41 O2 Del Method Room Air 12/25/24 13:41 BMI result Body Mass Index 27.2 GENERAL APPEARANCE: in no acute distress, pleasant. NECK: no carotid bruit, mild jugular venous distention. SKIN: no suspicious lesions, warm and dry. HEART: Apical holosystolic murmur., regular rate and rhythm. LUNGS: clear to auscultation bilaterally. ABDOMEN: soft, nontender. EXTREMITIES: + edema. PERIPHERAL PULSES: equal. NEUROLOGIC: No gross deficits, AAO X 3 Objective Labs and Meds 12/22/24 03:42 12/24/24 06:46 Progress Note: A&P Assessment and plan (1) Atrial flutter: Status: Acute Plan Pleasant 79 year gentleman presenting with atrial flutter. We tried rate controlled with Cardizem and metoprolol with reasonable rate control and plan was to discharge the patient home. The patient's family felt that he should be cardioverted inpatient. Otherwise they asked to transfer the patient to [facility]. After some discussion we were able to get OR time today and he will be undergoing JT cardioversion today. Plan will be to stop the Cardizem after JT cardioversion. Change metoprolol to Toprol-XL 50 mg daily and add Multaq 400 mg twice a day. Thank you for allowing me to participate in the care of your patient. Please feel free to contact me if you have any questions. Time Spent With Patient Time: Total time managing care of this patient today ____ minutes. Progress Note: Quality Stroke Does the patient have a stroke diagnosis?: No Procedures Date of Service Date of Service: 12/25/24
--- NOTE | 2024-12-25 14:53 | MHC.SHP ---
Pre-Procedural Eval Section A - 24 Hr Update-Section A only Date of Service: 12/25/24 The patient is an INPATIENT: Yes The patient has been examined within 24 hours of the surgical procedure. The History & Physical has been completed within 30 days and I have reviewed it.: Yes Section B - Complete if H&P > 30 days Chief Complaint: new onset aflutter Allergies: Allergies Allergy/AdvReac Type Severity Reaction Status Date / Time bee pollen (bee stings) Allergy Severe Anaphylaxis Verified 12/21/24 10:44 Plan I have reviewed the history and physical and performed a pertinent physical examination on my patient. No changes have occurred unless specified. Time Spent With Patient Time: Total time managing care of this patient today ____ minutes.
--- NOTE | 2024-12-25 14:53 | HO.CARDIVERS ---
Cardioversion Procedure Note Cardioversion Date of Procedure: 12/25/24 Ordering Provider: Jonathan Dailey Performing Provider: Jonathan Dailey Indication for Procedure: [age] year gentleman with atrial flutter-difficult to control. Here for JT cardioversion. Performed with Transesophageal Echo: Yes JT findings (if JT Performed): No left atrial appendage thrombus was noted. History: [age] gentleman with atrial flutter which was difficult to rate control and he is here for JT cardioversion. Consent: Verbal and Written consent was obtained from the patient before starting. The patient was made aware of the risk of stroke, arrhythmia, failure to achieve sinus rhythm. Procedure: After consent obtained, defib pads were attached and the patient was sedated by the anesthesia team. Once adequate sedation achieved, single synchronized shock of 150 joules was given to the patient. He converted to sinus rhythm. Initially he was bradycardic but his heart rate started improving after some time. Recommendations: Stop the Cardizem. Change metoprolol to Toprol-XL 50 mg daily. Add Multaq 400 mg twice a day. Continue apixaban 5 mg twice a day. We will refer him to electrophysiology as outpatient for ablation and get him off Multaq.
--- NOTE | 2024-12-25 18:07 | P.PNIM_ITS ---
Subjective Subjective Date of Service: 12/25/24 Interval History: Pt initially seen her this morning where he is resting comfortably in bed Still experiencing lightheadedness and dizziness at both rest and with ambulation Heart rate better controlled last night with only a few episodes of tachycardia into the 130s and 140s In the afternoon pt underwent successful cardioversion Re-evaluated in the evening where he is resting comfortably bed and reports feels much better than prior Denies SOB, lightheadedness or dizziness, fatigue Review of Systems Review of Systems: Yes all other systems are reviewed and are negative Physical Exam 2 Exam: Exam: General: AOx3, no acute distress Resp: CTA bilaterally CVS: Irregularly irregular rhythm, tachycardic GI: +BS, NT, no distention Skin: Warm, dry Neuro: Cranial nerves II-XII grossly intact bilaterally. Motor grossly intact bilaterally Extremities: No edema Psych: Appropriate affect Vital Signs: Vital Signs: Last Vital Signs Temp 97.8 F 12/25/24 15:23 Pulse 70 12/25/24 15:23 Resp 16 12/25/24 15:23 BP 108/67 12/25/24 15:23 Pulse Ox 93 12/25/24 15:23 O2 Del Method Room Air 12/25/24 15:23 BMI result Body Mass Index 27.2 Objective Data Active Medications Acetaminophen (Acetaminophen 325 Mg Tablet) 650 mg PO Q6H PRN PRN Reason: Pain, Mild 1-3,fever,headache Albuterol Sulfate (Albuterol Sulfate 90 Mcg 8 Gm Inhaler) 2 puff INHALE Q4H PRN PRN Reason: shortness of breath or wheezing Apixaban (Apixaban 5 Mg Tablet) 5 mg PO BID [facility] Last Admin: 12/25/24 07:46 Dose: 5 mg Documented By: ELLIOT Atorvastatin Calcium (Atorvastatin Calcium 20 Mg Tablet) 20 mg PO DAILY [facility] Last Admin: 12/25/24 07:46 Dose: 20 mg Documented By: ELLIOT Calcium Carbonate (Calcium Carbonate 750 Mg Tab.Chew) 750 mg PO Q4H PRN PRN Reason: Heartburn Dronedarone (Dronedarone Hcl 400 Mg Tablet) 400 mg PO BID [facility] Lactated Ringer's (Lr) 1,000 mls @ 80 mls/hr IVCONT .[id number] [facility] Last Admin: 12/25/24 13:45 Dose: 80 mls/hr Documented By: ANNELIESE Levothyroxine Sodium (Levothyroxine Sodium 200 Mcg Tablet) 200 mcg PO DAILY@0600 [facility] Last Admin: 12/25/24 05:38 Dose: 200 mcg Documented By: TOÑO Magnesium Hydroxide (Milk Of Magnesia 30 Ml Oral.Susp) 30 ml PO DAILY PRN PRN Reason: Constipation Melatonin (Melatonin 3 Mg Tablet) 6 mg PO BEDTIME PRN PRN Reason: Insomnia Metoprolol Succinate (Metoprolol Succinate Er 50 Mg Tab.Er.24h) 50 mg PO DAILY [facility]; Protocol Metoprolol Tartrate (Metoprolol Tartrate 50 Mg Tablet) 50 mg PO BID [facility]; Protocol Stop: 12/26/24 02:00 Last Admin: 12/25/24 07:46 Dose: 50 mg Documented By: ELLIOT Naloxone HCl (Naloxone Hcl 0.4 Mg/Ml Vial) 0.04 mg IVPUSH Q5M PRN PRN Reason: Excessive sedation or RR < 8 Ondansetron HCl (Ondansetron Hcl 4 Mg/2 Ml Vial) 4 mg IVPUSH Q8H PRN PRN Reason: Nausea and Vomiting Sodium Chloride (0.9 % Sodium Chloride Flush 3 Ml Syringe) 3 ml IVFLUSH QSHIFT [facility] Last Admin: 12/25/24 17:18 Dose: 3 ml Documented By: ELLIOT Labs 12/22/24 03:42 12/24/24 06:46 Assessment and Plan (1) Atrial flutter with rapid ventricular response: Status: Acute Plan 79-year-old man admitted with new onset of atrial flutter and mild congestive heart failure New onset atrial flutter Unknown etiology Started on Cardizem drip in the ER but was stopped as pt unable to tolerate it due to bradycardia HR has continued to be intermittently in 130-140s at rest and with exertion; pt with lightheadedness/dizziness at rest and with exertion Echocardiogram showing normal left ventricular function with mild dilation of right ventricle and preserved RV function. Underwent successful cardioversion on 12/25 Initially treated with dilitazem 120mg daily and metoprolol 50mg bid; will DC diltiazem Will start metoprolol XL 50 mg daily, Multaq 400 mg b.i.d.; continue Eliquis 5mg bid Pt will need referral to electrophysiology as outpatient for ablation Monitor on telemetry Elevated BNP BNP 3398, likely secondary to atrial flutter Received Lasix IV 20 mg b.i.d., since discontinued Echocardiogram showed normal LV systolic function with EF 55-60% Cardiology following History of thyroidectomy Continue levothyroxine Hyperlipidemia Continue statin DVT prophylaxis with Eliquis Full code The pt successfully underwent JT cardioversion this afternoon. Will require additional hospitalization for overnight monitoring of cardiac function. If pt maintain sinus rhythm will be discharged tomorrow. Quality Stroke Does the patient have a stroke diagnosis?: No VTE Prior VTE?: No VTE Risk Level:: Medical - moderate - high VTE Device Contraindication: Treatment Not Indicated VTE Drug Contraindication: N/A - Med Ordered
--- NOTE | 2024-12-25 23:02 | ECG_ITS ---
Test Reason : tachy Blood Pressure : */* mmHG Vent. Rate : 92 BPM Atrial Rate : 276 BPM P-R Int : * ms QRS Dur : 92 ms QT Int : 374 ms P-R-T Axes : * -3 60 degrees QTcB Int : 462 ms Atrial flutter with variable A-V block Abnormal ECG When compared with ECG of 25-Dec-2024 22:49, Atrial flutter has replaced Sinus rhythm Referred By: Chris Garcia Electronically Signed By: Jonathan Dailey
--- NOTE | 2024-12-26 | ECG_ITS ---
Test Reason : ?AFlutter Blood Pressure : */* mmHG Vent. Rate : 142 BPM Atrial Rate : * BPM P-R Int : * ms QRS Dur : 90 ms QT Int : 342 ms P-R-T Axes : * -27 65 degrees QTcB Int : 526 ms Atrial flutter Abnormal ECG When compared with ECG of 25-Dec-2024 23:05, Vent. rate has increased by 50 bpm Referred By: Alli Goetz Electronically Signed By: Jonathan Dailey
[2024-12-26 03:09] VITALS: BP 94/53; PULSE 92; RESP 16; TEMP 36.9; O2SAT 97
[2024-12-26 06:00] VITALS: BMI 26.9
[2024-12-26 08:00] VITALS: BP 96/60; PULSE 98; RESP 18; TEMP 36.7; O2SAT 96
[2024-12-26] MEDS: 0.9 % Sodium Chloride Flush 3 ML SYRINGE IVFLUSH ×2 (09:06→20:47)
--- NOTE | 2024-12-26 09:38 | PC.NURSE ---
PT hr ELEAVTED 130-140 PA Bishnu notified and came to bedside to assess the pt. pt denies any Chest pain or chest pressure. EKG obtained BP soft at 92/60 repeat manual 86/58 PA notified. multaq and metoprolol held per PA.
--- NOTE | 2024-12-26 09:54 | ECG_ITS ---
Test Reason : cp Blood Pressure : */* mmHG Vent. Rate : 144 BPM Atrial Rate : * BPM P-R Int : * ms QRS Dur : 138 ms QT Int : 376 ms P-R-T Axes : * -11 39 degrees QTcB Int : 582 ms Atrial flutter Minimal voltage criteria for LVH, may be normal variant ( R in aVL ) Abnormal ECG When compared with ECG of 26-Dec-2024 08:40, No significant changes seen Referred By: Alli Goetz Electronically Signed By: Jonathan Dailey
[2024-12-26 11:58] VITALS: BP 158/72; PULSE 88; RESP 18; TEMP 36.8; O2SAT 94
--- NOTE | 2024-12-26 12:44 | PC.NURSE ---
per cardiology okay to give AM multaq. unable to obtain from [employer] d/t hardware failure. called pharmacy to bring up one time dose and notified of drawer failure.
--- NOTE | 2024-12-26 13:05 | PM.PNCARD ---
Subjective Subjective Date of Service: 12/26/24 Interval history: Seen and examined at bedside. He was cardioverted yesterday into sinus rhythm. Around 09:00 yesterday he went back into atrial flutter. Physical Exam Vital Signs: Last Vital Signs Temp 98.3 F 12/26/24 11:58 Pulse 88 12/26/24 11:58 Resp 18 12/26/24 11:58 BP 158/72 H 12/26/24 11:58 Pulse Ox 94 12/26/24 11:58 O2 Del Method Room Air 12/26/24 11:58 BMI result Body Mass Index 26.9 GENERAL APPEARANCE: in no acute distress, pleasant. NECK: no carotid bruit, mild jugular venous distention. SKIN: no suspicious lesions, warm and dry. HEART: Apical holosystolic murmur., regular rate and rhythm. Tachycardic. LUNGS: clear to auscultation bilaterally. ABDOMEN: soft, nontender. EXTREMITIES: + edema. PERIPHERAL PULSES: equal. NEUROLOGIC: No gross deficits, AAO X 3 Objective Labs and Meds 12/22/24 03:42 12/24/24 06:46 Progress Note: A&P Assessment and plan (1) Atrial flutter: Status: Acute Plan Pleasant 79 year gentleman with atrial flutter. It was quite difficult to rate control and he was on beta-vanessa and Cardizem. He underwent JT cardioversion yesterday successfully but unfortunately at nighttime went back into atrial flutter. He was started on Multaq and he received 1 dose last night. I think we continue Multaq for now and resume the metoprolol at 50 mg twice a day. He will need cardioversion on Saturday. He had JT done which did not show any left atrial appendage thrombus. Eliquis should be continued uninterrupted. We will follow along with you. Thank you for allowing me to participate in the care of your patient. Please feel free to contact me if you have any questions. Time Spent With Patient Time: Total time managing care of this patient today ____ minutes. Progress Note: Quality Stroke Does the patient have a stroke diagnosis?: No Procedures Date of Service Date of Service: 12/26/24
[2024-12-26 15:52] VITALS: BP 94/57; PULSE 71; RESP 18; TEMP 36.4; O2SAT 99
--- NOTE | 2024-12-26 17:17 | P.PNIM_ITS ---
Subjective Subjective Date of Service: 12/26/24 Interval History: Pt underwent cardioversion yesterday that was initially successful, though he went back into a flutter at approximately 21:00 last night HR has been elevated into the 140s+, especially with ambulation Pt largely asymptomatic Cardiology plans for cardioversion again on Saturday Review of Systems Review of Systems: Yes all other systems are reviewed and are negative Physical Exam 2 Exam: Exam: General: AOx3, no acute distress Resp: CTA bilaterally CVS: Irregularly irregular rhythm, tachycardic GI: +BS, NT, no distention Skin: Warm, dry Neuro: Cranial nerves II-XII grossly intact bilaterally. Motor grossly intact bilaterally Extremities: No edema Psych: Appropriate affect Vital Signs: Vital Signs: Last Vital Signs Temp 97.6 F 12/26/24 15:52 Pulse 71 12/26/24 15:52 Resp 18 12/26/24 15:52 BP 94/57 L 12/26/24 15:52 Pulse Ox 99 12/26/24 15:52 O2 Del Method Room Air 12/26/24 15:52 BMI result Body Mass Index 26.9 Objective Data Active Medications Acetaminophen (Acetaminophen 325 Mg Tablet) 650 mg PO Q6H PRN PRN Reason: Pain, Mild 1-3,fever,headache Albuterol Sulfate (Albuterol Sulfate 90 Mcg 8 Gm Inhaler) 2 puff INHALE Q4H PRN PRN Reason: shortness of breath or wheezing Apixaban (Apixaban 5 Mg Tablet) 5 mg PO BID [facility] Last Admin: 12/26/24 09:06 Dose: 5 mg Documented By: PIEDAD Atorvastatin Calcium (Atorvastatin Calcium 20 Mg Tablet) 20 mg PO DAILY [facility] Last Admin: 12/26/24 09:06 Dose: 20 mg Documented By: PIEDAD Calcium Carbonate (Calcium Carbonate 750 Mg Tab.Chew) 750 mg PO Q4H PRN PRN Reason: Heartburn Dronedarone (Dronedarone Hcl 400 Mg Tablet) 400 mg PO BID [facility] Last Admin: 12/26/24 13:17 Dose: 400 mg Documented By: PIEDAD Levothyroxine Sodium (Levothyroxine Sodium 200 Mcg Tablet) 200 mcg PO DAILY@0600 [facility] Last Admin: 12/26/24 05:06 Dose: 200 mcg Documented By: GLADYS Magnesium Hydroxide (Milk Of Magnesia 30 Ml Oral.Susp) 30 ml PO DAILY PRN PRN Reason: Constipation Melatonin (Melatonin 3 Mg Tablet) 6 mg PO BEDTIME PRN PRN Reason: Insomnia Metoprolol Tartrate (Metoprolol Tartrate 50 Mg Tablet) 50 mg PO BID [facility]; Protocol Last Admin: 12/26/24 12:10 Dose: 50 mg Documented By: PIEDAD Naloxone HCl (Naloxone Hcl 0.4 Mg/Ml Vial) 0.04 mg IVPUSH Q5M PRN PRN Reason: Excessive sedation or RR < 8 Ondansetron HCl (Ondansetron Hcl 4 Mg/2 Ml Vial) 4 mg IVPUSH Q8H PRN PRN Reason: Nausea and Vomiting Sodium Chloride (0.9 % Sodium Chloride Flush 3 Ml Syringe) 3 ml IVFLUSH QSHIFT [facility] Last Admin: 12/26/24 15:34 Dose: Not Given Documented By: PIEDAD Non-Admin Reason: Patient Refused Labs 12/22/24 03:42 12/24/24 06:46 Assessment and Plan (1) Atrial flutter: Status: Acute Plan 79-year-old man admitted with new onset of atrial flutter and mild congestive heart failure New onset atrial flutter Unknown etiology Started on Cardizem drip in the ER but was stopped as pt unable to tolerate it due to bradycardia HR has continued to be intermittently in 130-140s at rest and with exertion; pt with lightheadedness/dizziness at rest and with exertion Echocardiogram showing normal left ventricular function with mild dilation of right ventricle and preserved RV function. Underwent successful cardioversion on 12/25, though reverted back to aflutter that night Initially treated with dilitazem 120mg daily and metoprolol 50mg bid; will DC diltiazem Continue metoprolol 50 mg bid, Multaq 400 mg b.i.d., Eliquis 5mg bid Cardiology will plan additional cardioversion on Saturday, 12/28 Pt will need referral to electrophysiology as outpatient for ablation Monitor on telemetry Elevated BNP BNP 3398, likely secondary to atrial flutter Received Lasix IV 20 mg b.i.d., since discontinued Echocardiogram showed normal LV systolic function with EF 55-60% Does not appear to be fluid overloaded Cardiology following History of thyroidectomy Continue levothyroxine Hyperlipidemia Continue statin DVT prophylaxis with Eliquis Full code The pt successfully underwent JT cardioversion on 12/25 but reverted to AFlutter that evening. He will require additional hospitalization for repeat cardioversion on Saturday. Quality Stroke Does the patient have a stroke diagnosis?: No VTE Prior VTE?: No VTE Risk Level:: Medical - moderate - high VTE Device Contraindication: Treatment Not Indicated VTE Drug Contraindication: N/A - Med Ordered
[2024-12-26 19:18] VITALS: BP 96/58; PULSE 72; RESP 16; TEMP 36.4; O2SAT 94
[2024-12-26 23:09] VITALS: BP 100/63; PULSE 70; RESP 16; TEMP 36.4; O2SAT 92
[2024-12-27 02:45] VITALS: BP 98/54; PULSE 94; RESP 16; TEMP 36.4; O2SAT 98
[2024-12-27 06:00] VITALS: BMI 27.2
[2024-12-27 07:21] VITALS: BP 114/71; PULSE 69; RESP 16; TEMP 36.2; O2SAT 97
[2024-12-27] MEDS: 0.9 % Sodium Chloride Flush 3 ML SYRINGE IVFLUSH ×3 (07:29→20:41)
[2024-12-27 11:44] VITALS: BP 99/57; PULSE 72; RESP 18; TEMP 36.3; O2SAT 97
--- NOTE | 2024-12-27 12:56 | PM.PNCARD ---
Subjective Subjective Date of Service: 12/27/24 Interval history: Seen examined at bedside. Feeling good. Continues to be in atrial flutter. Physical Exam Vital Signs: Last Vital Signs Temp 97.3 F 12/27/24 11:44 Pulse 72 12/27/24 11:44 Resp 18 12/27/24 11:44 BP 99/57 L 12/27/24 11:44 Pulse Ox 97 12/27/24 11:44 O2 Del Method Room Air 12/27/24 11:44 BMI result Body Mass Index 27.2 GENERAL APPEARANCE: in no acute distress, pleasant. NECK: no carotid bruit, no jugular venous distention. SKIN: no suspicious lesions, warm and dry. HEART: Apical holosystolic murmur., regular rate and rhythm. LUNGS: clear to auscultation bilaterally. ABDOMEN: soft, nontender. EXTREMITIES: + edema. PERIPHERAL PULSES: equal. NEUROLOGIC: No gross deficits, AAO X 3 Objective Labs and Meds 12/22/24 03:42 12/24/24 06:46 Progress Note: A&P Assessment and plan (1) Atrial flutter: Status: Acute Plan [age] gentleman with atrial flutter. He underwent JT cardioversion but unfortunately went back into atrial flutter. He has been on Multaq and metoprolol at this stage. Heart rates are better controlled. Our plan is to do cardioversion tomorrow. Keep NPO after midnight. Eliquis should not be interrupted. Thank you for allowing me to participate in the care of your patient. Please feel free to contact me if you have any questions. Time Spent With Patient Time: Total time managing care of this patient today ____ minutes. Progress Note: Quality Stroke Does the patient have a stroke diagnosis?: No Procedures Date of Service Date of Service: 12/27/24
--- NOTE | 2024-12-27 14:32 | HO.PM.IMPN ---
Subjective Subjective Date of Service: 12/27/24 Interval History: Continues in AFlutter Doing well overall Occasional lightheadedness and dizziness HR better controlled overnight, though did experience some spikes to 120s Plan is for repeat cardioversion tomorrow Review of Systems Review of Systems: Yes all other systems are reviewed and are negative Physical Exam Exam: Exam: General: AOx3, no acute distress Resp: CTA bilaterally CVS: Irregularly irregular rhythm GI: +BS, NT, no distention Skin: Warm, dry Neuro: Cranial nerves II-XII grossly intact bilaterally. Motor grossly intact bilaterally Extremities: No edema Psych: Appropriate affect Vital Signs: Vital Signs: Last Vital Signs Temp 97.3 F 12/27/24 11:44 Pulse 72 12/27/24 11:44 Resp 18 12/27/24 11:44 BP 99/57 L 12/27/24 11:44 Pulse Ox 97 12/27/24 11:44 O2 Del Method Room Air 12/27/24 11:44 BMI result Body Mass Index 27.2 Objective Data Active Medications Acetaminophen (Acetaminophen 325 Mg Tablet) 650 mg PO Q6H PRN PRN Reason: Pain, Mild 1-3,fever,headache Albuterol Sulfate (Albuterol Sulfate 90 Mcg 8 Gm Inhaler) 2 puff INHALE Q4H PRN PRN Reason: shortness of breath or wheezing Apixaban (Apixaban 5 Mg Tablet) 5 mg PO BID [facility] Last Admin: 12/27/24 07:29 Dose: 5 mg Documented By: PIEDAD Atorvastatin Calcium (Atorvastatin Calcium 20 Mg Tablet) 20 mg PO DAILY [facility] Last Admin: 12/27/24 07:29 Dose: 20 mg Documented By: PIEDAD Calcium Carbonate (Calcium Carbonate 750 Mg Tab.Chew) 750 mg PO Q4H PRN PRN Reason: Heartburn Dronedarone (Dronedarone Hcl 400 Mg Tablet) 400 mg PO BID [facility] Last Admin: 12/27/24 07:28 Dose: 400 mg Documented By: PIEDAD Levothyroxine Sodium (Levothyroxine Sodium 200 Mcg Tablet) 200 mcg PO DAILY@0600 [facility] Last Admin: 12/27/24 05:17 Dose: 200 mcg Documented By: GLADYS Magnesium Hydroxide (Milk Of Magnesia 30 Ml Oral.Susp) 30 ml PO DAILY PRN PRN Reason: Constipation Melatonin (Melatonin 3 Mg Tablet) 6 mg PO BEDTIME PRN PRN Reason: Insomnia Metoprolol Tartrate (Metoprolol Tartrate 50 Mg Tablet) 50 mg PO BID [facility]; Protocol Last Admin: 12/27/24 07:29 Dose: 50 mg Documented By: PIEDAD Naloxone HCl (Naloxone Hcl 0.4 Mg/Ml Vial) 0.04 mg IVPUSH Q5M PRN PRN Reason: Excessive sedation or RR < 8 Ondansetron HCl (Ondansetron Hcl 4 Mg/2 Ml Vial) 4 mg IVPUSH Q8H PRN PRN Reason: Nausea and Vomiting Sodium Chloride (0.9 % Sodium Chloride Flush 3 Ml Syringe) 3 ml IVFLUSH QSHIFT [facility] Last Admin: 12/27/24 07:29 Dose: 3 ml Documented By: PIEDAD Labs 12/22/24 03:42 12/24/24 06:46 Assessment and Plan (1) Atrial flutter with rapid ventricular response: Status: Acute Plan 79-year-old man admitted with new onset of atrial flutter and mild congestive heart failure New onset atrial flutter Unknown etiology Started on Cardizem drip in the ER but was stopped as pt unable to tolerate it due to bradycardia HR has continued to be intermittently in 130-140s at rest and with exertion; pt with lightheadedness/dizziness at rest and with exertion Echocardiogram showing normal left ventricular function with mild dilation of right ventricle and preserved RV function. Underwent successful cardioversion on 12/25, though reverted back to aflutter that night Initially treated with dilitazem 120mg daily and metoprolol 50mg bid; will DC diltiazem Continue metoprolol 50 mg bid, Multaq 400 mg b.i.d., Eliquis 5mg bid Cardiology will plan additional cardioversion on Saturday, 12/28 Pt will need referral to electrophysiology as outpatient for ablation Monitor on telemetry Elevated BNP BNP 3398, likely secondary to atrial flutter Received Lasix IV 20 mg b.i.d., since discontinued Echocardiogram showed normal LV systolic function with EF 55-60% Does not appear to be fluid overloaded Cardiology following History of thyroidectomy Continue levothyroxine Hyperlipidemia Continue statin DVT prophylaxis with Eliquis Full code The pt successfully underwent JT cardioversion on 12/25 but reverted to AFlutter that evening. He will require additional hospitalization for repeat cardioversion on Saturday. Quality Stroke Does the patient have a stroke diagnosis?: No VTE Prior VTE?: No VTE Risk Level:: Medical - moderate - high VTE Device Contraindication: Treatment Not Indicated VTE Drug Contraindication: N/A - Med Ordered
[2024-12-27 15:50] VITALS: BP 117/63; PULSE 50; RESP 16; TEMP 36.3; O2SAT 96
--- NOTE | 2024-12-27 17:37 | PC.NURSE ---
Pt HR fausto in the 130-140 at rest. pt asymptomatic. DARON Goetz made aware. no new orders at this time will continue to monitor.
--- NOTE | 2024-12-27 19:35 | P.CDIM_ITS ---
PROVIDER RESPONSE TEXT: To clarify, the appropriate diagnosis supported by the clinical indicators: Systolic: Acute QUERY TEXT: PHYSICIAN'S DOCUMENTATION REQUEST Date of Query: 12/24/2024 10:27 AM EST Patient Name: Evert Clemons Admit Date: 12/21/2024 Dear Alli NERI, A review of the medical record indicates additional documentation may be needed. Please review below and update the documentation accordingly. Clinical Indicators: per Cariology progress note 12/23/24: ECHO has shown normal left ventricular function with mild dilation of right ventricle and preserved RV function. Please provide further specificity regarding the most likely type of CHF you are evaluating, treating, or monitoring. Systolic Please specify if Acute, Chronic, or Acute on chronic, or Unable to determine Diastolic Please specify if Acute, Chronic, or Acute on chronic, or Unable to determine Combined Systolic/Diastolic Please specify if Acute, Chronic, or Acute on chronic, or Unable to determine Other (explain) Clinically unable to determine (explain) Thank you, Rebecca Lopez RN Use of terms such as suspected, likely, concern for, or probable (associated with a specific diagnosis that is being evaluated, monitored, or treated as if it exists) are acceptable and can be coded in the inpatient setting, when documented at the time of discharge. Please use your independent medical judgment in providing your response. THIS QUERY IS PART OF THE PERMANENT MEDICAL RECORD
[2024-12-27 20:00] VITALS: BP 99/58; PULSE 63; RESP 18; TEMP 36.6; O2SAT 96
[2024-12-27 23:05] VITALS: BP 108/57; PULSE 59; RESP 18; TEMP 36.4; O2SAT 93
[2024-12-28] VITALS (15 sets, daily range): BP systolic 82–119; BP diastolic 54–69; PULSE 57–137; RESP 15–20; TEMP 36.2–36.9; O2SAT 95–99; BMI 27.6
--- NOTE | 2024-12-28 07:32 | HO.PM.IMPN ---
Subjective Subjective Date of Service: 12/28/24 Physical Exam Vital Signs: Vital Signs: Last Vital Signs Temp 97.6 F 12/28/24 03:47 Pulse 134 H 12/28/24 06:37 Resp 20 12/28/24 03:47 BP 106/62 12/28/24 06:36 Pulse Ox 96 12/28/24 03:47 O2 Del Method Room Air 12/28/24 03:47 BMI result Body Mass Index 27.6 Objective Data Active Medications Acetaminophen (Acetaminophen 325 Mg Tablet) 650 mg PO Q6H PRN PRN Reason: Pain, Mild 1-3,fever,headache Albuterol Sulfate (Albuterol Sulfate 90 Mcg 8 Gm Inhaler) 2 puff INHALE Q4H PRN PRN Reason: shortness of breath or wheezing Apixaban (Apixaban 5 Mg Tablet) 5 mg PO BID [facility] Last Admin: 12/27/24 20:41 Dose: 5 mg Documented By: SHAJI Atorvastatin Calcium (Atorvastatin Calcium 20 Mg Tablet) 20 mg PO DAILY [facility] Last Admin: 12/27/24 07:29 Dose: 20 mg Documented By: PIEDAD Calcium Carbonate (Calcium Carbonate 750 Mg Tab.Chew) 750 mg PO Q4H PRN PRN Reason: Heartburn Dronedarone (Dronedarone Hcl 400 Mg Tablet) 400 mg PO BID [facility] Last Admin: 12/27/24 20:41 Dose: 400 mg Documented By: SHAJI Levothyroxine Sodium (Levothyroxine Sodium 200 Mcg Tablet) 200 mcg PO DAILY@0600 [facility] Last Admin: 12/28/24 05:21 Dose: 200 mcg Documented By: SHAJI Magnesium Hydroxide (Milk Of Magnesia 30 Ml Oral.Susp) 30 ml PO DAILY PRN PRN Reason: Constipation Melatonin (Melatonin 3 Mg Tablet) 6 mg PO BEDTIME PRN PRN Reason: Insomnia Metoprolol Tartrate (Metoprolol Tartrate 50 Mg Tablet) 50 mg PO BID [facility]; Protocol Last Admin: 12/27/24 20:33 Dose: Not Given Documented By: SHAJI Non-Admin Reason: Physician Held Med Naloxone HCl (Naloxone Hcl 0.4 Mg/Ml Vial) 0.04 mg IVPUSH Q5M PRN PRN Reason: Excessive sedation or RR < 8 Ondansetron HCl (Ondansetron Hcl 4 Mg/2 Ml Vial) 4 mg IVPUSH Q8H PRN PRN Reason: Nausea and Vomiting Sodium Chloride (0.9 % Sodium Chloride Flush 3 Ml Syringe) 3 ml IVFLUSH QSHIFT [facility] Last Admin: 12/27/24 20:41 Dose: 3 ml Documented By: SHAJI Labs 12/22/24 03:42 12/24/24 06:46 Quality Stroke Does the patient have a stroke diagnosis?: No VTE Prior VTE?: No VTE Risk Level:: Medical - moderate - high VTE Device Contraindication: Treatment Not Indicated VTE Drug Contraindication: N/A - Med Ordered
[2024-12-28] MEDS: 0.9 % Sodium Chloride Flush 3 ML SYRINGE IVFLUSH ×2 (08:30→20:37)
--- NOTE | 2024-12-28 10:20 | MHC.CM.PN ---
Per ROUNDS discussion, Patient is having a repeat Cardioversion and is not yet medically cleared for dc; home is the goal and CM will continue to follow.
[2024-12-28] MEDS: Lactated Ringers 1,000 ML 80 ML IVCONT (11:22)
--- NOTE | 2024-12-28 11:43 | PM.PNCARD ---
Subjective Subjective Date of Service: 12/28/24 Principal diagnosis: Atrial flutter Interval history: Patient remains in atrial flutter with rapid ventricular response. Blood pressure is stopped. No other symptoms Review of Systems Constitutional: Reports no additional constitutional complaints Cardiovascular: Denies chest pain, Reports rapid heart rate, Denies lightheadedness and Denies Loss of Consciousness Respiratory: Reports no additional respiratory complaints Gastrointestinal: Reports no additional gastrointestinal complaints Genitourinary: Reports no additional male genitourinary complaints Musculoskeletal: Reports no additional musculoskeletal complaints Physical Exam Vital Signs: Last Vital Signs Temp 97.7 F 12/28/24 11:14 Pulse 90 12/28/24 11:14 Resp 16 12/28/24 11:14 BP 119/67 12/28/24 11:14 Pulse Ox 99 12/28/24 11:14 O2 Del Method Room Air 12/28/24 11:14 BMI result Body Mass Index 27.6 GENERAL APPEARANCE: in no acute distress, pleasant. NECK: no carotid bruit, no jugular venous distention. SKIN: no suspicious lesions, warm and dry. HEART: Tachycardic, systolic murmur. LUNGS: clear to auscultation bilaterally. ABDOMEN: soft, nontender. EXTREMITIES: + edema. PERIPHERAL PULSES: equal. NEUROLOGIC: No gross deficits, AAO X 3 Objective Labs and Meds 12/22/24 03:42 12/24/24 06:46 Progress Note: A&P Assessment and plan (1) Atrial flutter with rapid ventricular response: Status: Acute Assessment and Plan: Persistent atrial flutter with rapid ventricular response despite cardioversion Saturday. Currently on Multaq therapy. Will pursue synchronized cardioversion again. Discussed the risks, benefits, alternatives with the patient. He is agreeable. He has been on Eliquis therapy continuously. Atrial flutter appears very typical and would be a good candidate for ablation in the future. However after cardioversion if remains in sinus rhythm can be discharged home. Will follow with you if patient is still in the hospital Time Spent With Patient Time: Total time managing care of this patient today ____ minutes. Progress Note: Quality Stroke Does the patient have a stroke diagnosis?: No Procedures Date of Service Date of Service: 12/28/24
--- NOTE | 2024-12-28 11:48 | HO.ANESPROP2 ---
Documented by User: Mikayla Charles NP 12/28/24 09:49 HPI - Anesthesia Eval Consult details Narrative: 79 yr old male for cardioversion s/p JT with TIVA 12/25/24 COPD [facility] Active Problems Active Problems: All Active Problems (Updated 12/25/24 @ 18:10 by DARON Luque) Atrial flutter with rapid ventricular response (Acute) Atrial flutter (Acute) Exertional dyspnea (Acute) Wheezing (Acute) Leg swelling (Acute) Osteoarthritis of right knee (Acute) Right knee pain (Acute) Medicare annual wellness visit, subsequent (Acute) Screening for metabolic disorder (Acute) Screening, deficiency anemia, iron (Acute) Osteoarthritis of left knee (Acute) Left knee pain (Acute) Shortness of breath (Acute) 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 (Acute) Sore throat (Acute) Chest pain (Acute) Dysphagia (Acute) Mass of arm (Acute) Hyperlipidemia (Acute) Neuropathy (Acute) Past Medical History Medical History (Updated 12/25/24 @ 18:10 by DARON Luque) Thyroid cancer Agent orange exposure COPD (chronic obstructive pulmonary disease) Family History Family History Mother Coronary artery disease Pulmonary embolism Father Cancer of prostate Family history of problems with anesthesia: No Surgical History Surgical History Hx of spinal surgery History of ptosis repair Voice impairment History of transurethral resection of prostate Epidermal inclusion cyst History of right knee surgery S/P foot surgery, right Right shoulder injury History of thyroidectomy Neoplasm of right patella Inguinal hernia bilateral, non-recurrent Left hand pain History of Problems with Anesthesia: No Social History Social History Household Members: Significant Other Housing: House Are you a primary pediatric critical care nurse to a significant other at home: No Do you presently have visiting nurse or other home services: No Alcohol intake: never Comment: low fall Patient Tobacco Use Status: Former Tobacco user Cigarette Packs Per Day: 0.5 Years Smoked: 3 e-Cigarette/Vaping Use: Never Used Second Hand Smoke Exposure: No service: Yes Current occupational status: retired Cognitive needs: No Hearing needs: Yes (bilateral hearing aids) Vision needs: Yes (glasses) Meds Allergies Allergy/AdvReac Type Severity Reaction Status Date / Time bee pollen (bee stings) Allergy Severe Anaphylaxis Verified 12/21/24 10:44 Active Medications: Current Medications Acetaminophen (Acetaminophen 325 Mg Tablet) 650 mg PO Q6H PRN PRN Reason: Pain, Mild 1-3,fever,headache Albuterol Sulfate (Albuterol Sulfate 90 Mcg 8 Gm Inhaler) 2 puff INHALE Q4H PRN PRN Reason: shortness of breath or wheezing Apixaban (Apixaban 5 Mg Tablet) 5 mg PO BID [facility] Last Admin: 12/28/24 08:23 Dose: 5 mg Atorvastatin Calcium (Atorvastatin Calcium 20 Mg Tablet) 20 mg PO DAILY [facility] Last Admin: 12/28/24 08:23 Dose: 20 mg Calcium Carbonate (Calcium Carbonate 750 Mg Tab.Chew) 750 mg PO Q4H PRN PRN Reason: Heartburn Dronedarone (Dronedarone Hcl 400 Mg Tablet) 400 mg PO BID [facility] Last Admin: 12/28/24 08:28 Dose: 400 mg Levothyroxine Sodium (Levothyroxine Sodium 200 Mcg Tablet) 200 mcg PO DAILY@0600 [facility] Last Admin: 12/28/24 05:21 Dose: 200 mcg Magnesium Hydroxide (Milk Of Magnesia 30 Ml Oral.Susp) 30 ml PO DAILY PRN PRN Reason: Constipation Melatonin (Melatonin 3 Mg Tablet) 6 mg PO BEDTIME PRN PRN Reason: Insomnia Metoprolol Tartrate (Metoprolol Tartrate 50 Mg Tablet) 50 mg PO BID [facility]; Protocol Last Admin: 12/28/24 08:23 Dose: 50 mg Naloxone HCl (Naloxone Hcl 0.4 Mg/Ml Vial) 0.04 mg IVPUSH Q5M PRN PRN Reason: Excessive sedation or RR < 8 Ondansetron HCl (Ondansetron Hcl 4 Mg/2 Ml Vial) 4 mg IVPUSH Q8H PRN PRN Reason: Nausea and Vomiting Sodium Chloride (0.9 % Sodium Chloride Flush 3 Ml Syringe) 3 ml IVFLUSH QSHIFT [facility] Last Admin: 12/28/24 08:30 Dose: 3 ml Home Medications ?Medication ?Instructions ?Recorded ?Confirmed ?Last Taken ?Type tiotropium 2.5 mcg-olodaterol 2.5 2 puff inhalation DAILY 07/15/24 12/21/24 12/20/24 History mcg/actuation mist for inhalation (Stiolto Respimat) levothyroxine 200 mcg tablet 200 mcg PO DAILY@0600 12/21/24 12/21/24 12/20/24 History Exam Height,Weight and Vital Signs: Height 6 ft 3 in Weight 100.3 kg Last Vital Signs Temp 98.4 F 12/28/24 07:32 Pulse 123 H 12/28/24 07:32 Resp 18 12/28/24 07:32 BP 100/58 L 12/28/24 07:32 Pulse Ox 96 12/28/24 07:32 O2 Del Method Room Air 12/28/24 07:32 Pertinent Lab Results Pertinent Lab Results: Laboratory Tests 12/21/24 12/21/24 12/22/24 10:52 11:36 03:42 WBC 6.2 7.0 RBC 4.59 L 4.23 L Hgb 13.7 L 12.5 L Hct 42.5 38.7 L MCV 92.6 91.5 MCH 29.8 29.6 MCHC 32.2 32.3 RDW 14.5 14.4 Plt Count 247 252 MPV 11.1 11.3 Immature Gran % (Auto) 0.2 0.4 Neut % (Auto) 70.5 64.0 Lymph % (Auto) 17.7 L 22.1 [place] % (Auto) 9.2 10.8 Eos % (Auto) 1.9 2.1 Baso % (Auto) 0.5 0.6 Lymph # (Auto) 1.1 L 1.6 [place] # (Auto) 0.6 0.8 Eos # (Auto) 0.1 0.2 Baso # (Auto) 0.0 0.0 Abs Immat Gran (auto) 0.01 0.03 Absolute Neuts (auto) 4.4 4.5 Absolute Nucleated RBC 0.000 0.000 Nucleated RBC % (auto) 0.0 0.0 PT 13.3 H INR 1.2 H Sodium 141 139 Potassium 4.3 3.8 Chloride 110 H 106 Carbon Dioxide 26 26 Anion Gap 9 L 11 L BUN 13 17 H Creatinine 1.02 1.10 Estim Creat Clear Calc 80.4 74.5 Estimated GFR > 60 > 60 Random Glucose 107 110 Calcium 9.5 8.7 D Magnesium 1.9 Total Bilirubin 1.1 H 0.5 AST 26 22 ALT 16 15 Alkaline Phosphatase 60 49 Troponin I High Sens 9.3 NT-Pro-B Natriuret Pep 3398.9 H Total Protein 6.6 5.6 L Albumin 4.2 3.6 TSH 0.05 L Free T4 1.41 12/24/24 06:46 WBC RBC Hgb Hct MCV MCH MCHC RDW Plt Count MPV Immature Gran % (Auto) Neut % (Auto) Lymph % (Auto) [place]er % (Auto) Eos % (Auto) Baso % (Auto) Lymph # (Auto) [place]er # (Auto) Eos # (Auto) Baso # (Auto) Abs Immat Gran (auto) Absolute Neuts (auto) Absolute Nucleated RBC Nucleated RBC % (auto) PT INR Sodium 140 Potassium 3.9 Chloride 107 Carbon Dioxide 27 Anion Gap 10 L BUN 14 Creatinine 1.04 Estim Creat Clear Calc 71.0 Estimated GFR > 60 Random Glucose 100 Calcium 8.7 Magnesium Total Bilirubin AST ALT Alkaline Phosphatase Troponin I High Sens NT-Pro-B Natriuret Pep 1762.2 H Total Protein Albumin TSH Free T4 Narrative Narrative: JT 12/25/24 Conclusion: ??? Limited study done because the patient has vocal cord paralysis and risk of aspiration. ??? No LA or WILY thrombus. EKG 12/26/24 Vent. Rate : 144 BPM Atrial Rate : * BPM P-R Int : * ms QRS Dur : 138 ms QT Int : 376 ms P-R-T Axes : * -11 39 degrees QTcB Int : 582 ms Atrial flutter Minimal voltage criteria for LVH, may be normal variant ( R in aVL ) Abnormal ECG When compared with ECG of 26-Dec-2024 08:40, No significant changes seen Assessment and Plan Final Anesthetic Review Family History of Problems with Anesthesia: No History of Problems with Anesthesia: No Documented by User: Carmen Lizarraga DO 12/28/24 11:50 [facility] Past Medical History Medical History (Updated 12/25/24 @ 18:10 by DARON Luque) Thyroid cancer Agent orange exposure COPD (chronic obstructive pulmonary disease) Family History Family History Mother Coronary artery disease Pulmonary embolism Father Cancer of prostate Family history of problems with anesthesia: No Surgical History Surgical History Hx of spinal surgery History of ptosis repair Voice impairment History of transurethral resection of prostate Epidermal inclusion cyst History of right knee surgery S/P foot surgery, right Right shoulder injury History of thyroidectomy Neoplasm of right patella Inguinal hernia bilateral, non-recurrent Left hand pain History of Problems with Anesthesia: No Social History Social History Household Members: Significant Other Housing: House Are you a primary pediatric critical care nurse to a significant other at home: No Do you presently have visiting nurse or other home services: No Alcohol intake: never Comment: low fall Patient Tobacco Use Status: Former Tobacco user Cigarette Packs Per Day: 0.5 Years Smoked: 3 e-Cigarette/Vaping Use: Never Used Second Hand Smoke Exposure: No service: Yes Current occupational status: retired Cognitive needs: No Hearing needs: Yes (bilateral hearing aids) Vision needs: Yes (glasses) Meds Allergies Allergy/AdvReac Type Severity Reaction Status Date / Time bee pollen (bee stings) Allergy Severe Anaphylaxis Verified 12/21/24 10:44 Home Medications ?Medication ?Instructions ?Recorded ?Confirmed ?Last Taken ?Type tiotropium 2.5 mcg-olodaterol 2.5 2 puff inhalation DAILY 07/15/24 12/21/24 12/20/24 History mcg/actuation mist for inhalation (Stiolto Respimat) levothyroxine 200 mcg tablet 200 mcg PO DAILY@0600 12/21/24 12/21/24 12/20/24 History Exam Exam Date and Time: 12/28/24 1145 Height,Weight and Vital Signs: Height 6 ft 3 in Weight 100.3 kg Last Vital Signs Temp 98.4 F 12/28/24 07:32 Pulse 123 H 12/28/24 07:32 Resp 18 12/28/24 07:32 BP 100/58 L 12/28/24 07:32 Pulse Ox 96 12/28/24 07:32 O2 Del Method Room Air 12/28/24 07:32 Vital Signs Temperature 97.5 F 12/21/24 10:42 Pulse Rate 145 H 12/21/24 10:42 Respiratory Rate 18 12/21/24 10:42 Blood Pressure 134/98 H 12/21/24 10:42 Pulse Oximetry 96 12/21/24 10:42 Oxygen Delivery Method Room Air 12/21/24 10:42 Temperature 97.7 F 12/28/24 11:14 Pulse Rate 90 12/28/24 11:14 Respiratory Rate 16 12/28/24 11:14 Blood Pressure 119/67 12/28/24 11:14 Pulse Oximetry 99 12/28/24 11:14 Oxygen Delivery Method Room Air 12/28/24 11:14 Airway Mallampati Class: I TM Dist: >3cm Neck ROM: Full Loose/Missing/Broken Teeth: No (patient denies any loose or broken teeth) Heart: S1S2 Lungs: CTAB Assessment and Plan Assessment Anesthesia Assessment: Anesthesia Plan Discussed and Chart Reviewed Final Anesthetic Review Family History of Problems with Anesthesia: No History of Problems with Anesthesia: No NPO: Yes ASA Class: III Final Preanesthetic Review: No Changes in Pt Med Stat, Meds/Allgs Chart Reviewed, Consent Obtained/Reviewed and Anes Risks/Benef Reviewed Patient Risk: Intermediate Procedure Risk: Intermediate Anesthetic Plan Anesthetic Plan: MAC: and Agree w/ Assess. and Plan Disposition: Standard PACU
--- NOTE | 2024-12-28 12:14 | MHC.SHP ---
Pre-Procedural Eval Section A - 24 Hr Update-Section A only Date of Service: 12/28/24 The patient is an INPATIENT: Yes Changes since office visit: Yes Changes in Medication and Yes Patient answered all questions; No Cold of Flu in the past 2 weeks and No New Medical Problems The patient has been examined within 24 hours of the surgical procedure. The History & Physical has been completed within 30 days and I have reviewed it.: Yes Section B - Complete if H&P > 30 days Chief Complaint: new onset aflutter Allergies: Allergies Allergy/AdvReac Type Severity Reaction Status Date / Time bee pollen (bee stings) Allergy Severe Anaphylaxis Verified 12/21/24 10:44 Plan I have reviewed the history and physical and performed a pertinent physical examination on my patient. No changes have occurred unless specified. Time Spent With Patient Time: Total time managing care of this patient today ____ minutes.
--- NOTE | 2024-12-28 12:21 | ECG_ITS ---
Test Reason : postcardioversion Blood Pressure : */* mmHG Vent. Rate : 61 BPM Atrial Rate : 61 BPM P-R Int : 180 ms QRS Dur : 92 ms QT Int : 440 ms P-R-T Axes : 59 -17 42 degrees QTcB Int : 442 ms Normal sinus rhythm Possible Left atrial enlargement Minimal voltage criteria for LVH, may be normal variant ( R in aVL ) Borderline ECG When compared with ECG of 26-Dec-2024 09:54, Sinus rhythm has replaced Atrial flutter with rapid ventricular response Vent. rate has decreased by 83 bpm Referred By: Alberto Murphy Electronically Signed By: ALBERTO MURPHY MD
--- NOTE | 2024-12-28 12:22 | HO.CARDIVERS ---
Cardioversion Procedure Note Cardioversion Date of Procedure: 12/28/2024 Ordering Provider: Dr. Dailey Performing Provider: Kristal Murphy Indication for Procedure: Persistent atrial flutter with rapid ventricular response with difficult control rate Pre-Op Diagnosis: Same Post-Op Diagnosis: Normal sinus rhythm Performed with Transesophageal Echo: No History: See inpatient notes Consent: Verbal and Written consent was obtained from the patient before starting and after confirming oral anticoagulation antiarrhythmic use. The patient was made aware of the risk of synchronized cardioversion including benefits and alternatives Procedure: After consent obtained, cardioversion pads were attached in anteroposterior configuration and the patient was sedated by the anesthesia team. Once adequate sedation achieved, patient was delivered 200 joules of biphasic synchronized energy in anteroposterior configuration Complications: None Impression: Successful conversion to sinus rhythm Recommendations: 1. 12 lead EKG 2. If remains in sinus rhythm for next couple of hours can be discharged home 3. Continue Multaq and Eliquis. 4. Will set up for follow up in the clinic
--- NOTE | 2024-12-28 13:28 | P.DS_ITS ---
DS: Providers Provider Date of Service: 12/29/24 Date of admission: 12/21/24 15:14 Date of discharge: 12/29/24 Primary care physician: Aaliyah Carrillo MD Consults: 12/21/24 13:16 Consult to Cardiology Stat Consulting Provider: [facility] [place] [facility] Reason for consultation: new onset flutter Has provider been notified: Yes DS: Diagnosis Discharge Diagnosis (1) Atrial flutter with rapid ventricular response: Status: Resolved DS: Summary Hospital Course Hospital Course: New onset paroxysmal Persistent atrial flutter with rapid ventricular response with difficult control rate status post 2 rounds of cardioversion on( 12/25 and ) Status post 2 rounds of cardioversion-11/24/2024 and 12/28/2024 Patient is a 79-year-old male with PMH notable for thyroid cancer, s/p vocal cord paralysis, who presented to the ED on 12/21/2024 with palpitations and weakness and bilateral lower extremity edema and was noted to have new onset unknown chronicity of a flutter with RVR. Cardiology was consulted, patient was started on Cardizem drip in the ER but could not tolerate due to symptomatic bradycardia, patient however continued to have high rates in the 130s to 140s at rest and with exertion and with symptomatic-lightheadedness and dizziness. TTE was done which showed normal left ventricular function with mild dilation of the right ventricle and preserved RV function. He was started on diltiazem 120 mg daily, metoprolol tartrate 50 mg b.i.d., Eliquis 5 mg p.o. b.i.d.. He underwent cardioversion by Cardiology on 11/24/2024. However patient only briefly remained in sinus and reverted back to atrial flutter over the weekend. He was cardioverted again on 12/28/2024 without event. Patient was monitored for another day without any incident. New medications at the time of this discharge-Eliquis Multaq and Lopressor for anticoagulation, antiarrhythmic and rate control medications. Patient we will need outpatient referral for electrophysiology for ablation. Cardiology to coordinate for this, we appreciate. Elevated proBNP-likely in the setting of heart failure-was initially placed on Lasix which has since been discontinued as he appears euvolemic History of thyroidectomy-Continue levothyroxine Hyperlipidemia -Continue statin DVT prophylaxis with Eliquis Full code Patient was in sinus rhythm, hemodynamically stable with no PT requirements at the time of discharge. Patient to follow up with Cardiology outpatient for ablation which he likely needs This note is constructed using voice recognition software. While every effort has been made to ensure accuracy, cardiac rn errors may have been included. Time spent discussing smoking cessation with patient: more than 10 minutes Status at Discharge Functional status at discharge: independent ambulation Overall status at discharge: patient is progressing back to baseline Time Attestation Discharge Coordination Time (in mins): 45 Quality: Safe Use of Opioids Does Pt have an Active Cancer Diagnosis on the Problem List?: No Quality: Stroke Does the patient have a stroke diagnosis?: No Physical Exam Vital Signs: Vital Signs: Last Vital Signs Temp 97.6 F 12/28/24 13:03 Pulse 63 12/28/24 13:03 Resp 19 12/28/24 13:03 BP 96/57 L 12/28/24 13:03 Pulse Ox 95 12/28/24 13:03 O2 Del Method Room Air 12/28/24 13:03 O2 Flow Rate 2 12/28/24 12:41 BMI result Body Mass Index 27.6 Discharge Plan Discharge Anticipated Discharge Date/Time: 12/28/24 13:21 Patient Disposition: Home, Self-Care Discharge Diagnosis: Persistent atrial flutter with rapid ventricular response with difficult control rate, s/p 2 rounds of Cardioversion Referrals: Jonathan Dailey MD [Physician, Cardiology] - 1 Week Aaliyah Carrillo MD [Primary Care Provider, Endocrinology] - 1 Week Discharge Medications: New Eliquis 5 mg Tablet 5 mg PO BID 30 Days Qty: 60 3RF Multaq 400 mg Tablet 400 mg PO BID 30 Days Qty: 60 2RF metoprolol tartrate 50 mg Tablet 50 mg PO BID 30 Days Qty: 60 3RF Protocol: Hold for SBP/HR < HOLD for SBP < : 90 HOLD for HR < : 60 Continued epinephrine [EpiPen 2-[place]] 0.3 mg/0.3 mL auto-injector 0.3 mg IM Q10M PRN (Reason: anaphylaxis) Qty: 2 1RF Rx Instructions: for 2 doses levothyroxine 200 mcg tablet 200 mcg PO DAILY@0600 albuterol sulfate 90 mcg/actuation HFA aerosol inhaler 2 puff inhalation Q4H PRN (Reason: shortness of breath or wheezing) 90 Days Qty: 8.5 3RF atorvastatin 20 mg tablet 20 mg PO DAILY 90 Days Qty: 90 3RF Stiolto Respimat 2.5-2.5 mcg/actuation mist 2 puff inhalation DAILY (DME) nebulizers Misc See Rx Instructions .Route Qty: 1 0RF Rx Instructions: nebulizer with tubing Discharge Orders: Discharge Order (Routine); Ordered 12/29/24 Ordered By: Swati Bautista Diet: Low salt diet Activity on Discharge: As tolerated Stand Alone Forms: Patient Portal Discharge page Print Language: Senegalese Care Plan Goals: Continue your new medications Eliquis Multaq and Lopressor-these are anticoagulant antiarrhythmic and rate-controlling medications for your heart Please follow up with your primary care within a week after discharge Please follow-up with cardiology outpatient Please return to the hospital if you notice any palpitations or have any concerns. Health Concerns: See above Plan of Treatment: See above Assessment: See above
--- NOTE | 2024-12-28 13:34 | MHC.CM.PN ---
Addendum entered by Ruth Juárez 12/28/24 14:11: Per RN, Patient will not dc to home today. CM will follow. Original Note: Patient has been medically cleared for dc to home today, self care. CM met with Patient at bedside and addressed IMM with him, providing Patient with the original and a copy has been placed on the chart. Patient will have a ride home today at 3:30 PM.
--- NOTE | 2024-12-28 14:27 | P.PNIM_ITS ---
Subjective Subjective Date of Service: 12/28/24 Interval History: Patient underwent cardioversion today We will continue to monitor on telemetry as he failed cardioversion last Saturday Review of Systems Review of Systems: Yes all other systems are reviewed and are negative Physical Exam 2 Exam: Exam: General: AOx3, no acute distress Resp: CTA bilaterally CVS: Irregularly irregular rhythm GI: +BS, NT, no distention Vital Signs: Vital Signs: Last Vital Signs Temp 97.6 F 12/28/24 13:03 Pulse 66 12/28/24 13:45 Resp 19 12/28/24 13:03 BP 96/57 L 12/28/24 13:03 Pulse Ox 95 12/28/24 13:03 O2 Del Method Room Air 12/28/24 13:03 O2 Flow Rate 2 12/28/24 12:41 BMI result Body Mass Index 27.6 Objective Data Active Medications Acetaminophen (Acetaminophen 325 Mg Tablet) 650 mg PO Q6H PRN PRN Reason: Pain, Mild 1-3,fever,headache Albuterol Sulfate (Albuterol Sulfate 90 Mcg 8 Gm Inhaler) 2 puff INHALE Q4H PRN PRN Reason: shortness of breath or wheezing Apixaban (Apixaban 5 Mg Tablet) 5 mg PO BID [facility] Last Admin: 12/28/24 08:23 Dose: 5 mg Documented By: NORA Atorvastatin Calcium (Atorvastatin Calcium 20 Mg Tablet) 20 mg PO DAILY [facility] Last Admin: 12/28/24 08:23 Dose: 20 mg Documented By: NORA Calcium Carbonate (Calcium Carbonate 750 Mg Tab.Chew) 750 mg PO Q4H PRN PRN Reason: Heartburn Dronedarone (Dronedarone Hcl 400 Mg Tablet) 400 mg PO BID [facility] Last Admin: 12/28/24 08:28 Dose: 400 mg Documented By: NORA Lactated Ringer's (Lr) 1,000 mls @ 80 mls/hr IVCONT .[id number] [facility] Last Admin: 12/28/24 11:22 Dose: 80 mls/hr Documented By: ANNELIESE Levothyroxine Sodium (Levothyroxine Sodium 200 Mcg Tablet) 200 mcg PO DAILY@0600 [facility] Last Admin: 12/28/24 05:21 Dose: 200 mcg Documented By: SHJAI Magnesium Hydroxide (Milk Of Magnesia 30 Ml Oral.Susp) 30 ml PO DAILY PRN PRN Reason: Constipation Melatonin (Melatonin 3 Mg Tablet) 6 mg PO BEDTIME PRN PRN Reason: Insomnia Metoprolol Tartrate (Metoprolol Tartrate 50 Mg Tablet) 50 mg PO BID [facility]; Protocol Last Admin: 12/28/24 08:23 Dose: 50 mg Documented By: NORA Naloxone HCl (Naloxone Hcl 0.4 Mg/Ml Vial) 0.04 mg IVPUSH Q5M PRN PRN Reason: Excessive sedation or RR < 8 Ondansetron HCl (Ondansetron Hcl 4 Mg/2 Ml Vial) 4 mg IVPUSH Q8H PRN PRN Reason: Nausea and Vomiting Sodium Chloride (0.9 % Sodium Chloride Flush 3 Ml Syringe) [address] [facility] Last Admin: 12/28/24 08:30 Dose: 3 ml Documented By: NORA Labs 12/22/24 03:42 12/24/24 06:46 Assessment and Plan (1) Atrial flutter with rapid ventricular response: Status: Acute Plan New onset paroxysmal Persistent atrial flutter with rapid ventricular response with difficult control rate status post 2 rounds of cardioversion on( 12/25 and ) Status post 2 rounds of cardioversion-11/24/2024 and 12/28/2024 Patient is a 79-year-old male with PMH notable for thyroid cancer, s/p vocal cord paralysis, who presented to the ED on 12/21/2024 with palpitations and weakness and bilateral lower extremity edema and was noted to have new onset unknown chronicity of a flutter with RVR. Cardiology was consulted, patient was started on Cardizem drip in the ER but could not tolerate due to symptomatic bradycardia, patient however continued to have high rates in the 130s to 140s at rest and with exertion and with symptomatic-lightheadedness and dizziness. TTE was done which showed normal left ventricular function with mild dilation of the right ventricle and preserved RV function. He was started on diltiazem 120 mg daily, metoprolol tartrate 50 mg b.i.d., Eliquis 5 mg p.o. b.i.d.. He underwent cardioversion by Cardiology on 11/24/2024. However patient only briefly remained in sinus and reverted back to atrial flutter over the weekend. He was cardioverted again on 12/28/2024 without event. New medications at the time of this discharge-Eliquis Multaq and Lopressor for anticoagulation, antiarrhythmic and rate control medications. Patient we will need outpatient referral for electrophysiology for ablation. Cardiology to coordinate for this, we appreciate. Elevated proBNP-likely in the setting of heart failure-was initially placed on Lasix which has since been discontinued as he appears euvolemic History of thyroidectomy-Continue levothyroxine Hyperlipidemia -Continue statin DVT prophylaxis with Eliquis Full code Given that the patient reverted back to a flutter post cardioversion on Saturday, it is imperative that he be monitored for 1 more day post cardioversion today and if he continues to be stable, we will discharge him tomorrow pending clinical status This note is constructed using voice recognition software. While every effort has been made to ensure accuracy, dishwashing machine repairer errors may have been included. Quality Stroke Does the patient have a stroke diagnosis?: No VTE Prior VTE?: No VTE Risk Level:: Medical - moderate - high VTE Device Contraindication: Treatment Not Indicated VTE Drug Contraindication: N/A - Med Ordered
[2024-12-29 04:00] VITALS: BP 108/67; PULSE 64; RESP 18; TEMP 36.3; O2SAT 93
[2024-12-29 06:00] VITALS: BMI 27.7
[2024-12-29 07:09] VITALS: BP 114/70; PULSE 65; RESP 18; TEMP 36.4; O2SAT 94
--- NOTE | 2024-12-29 07:14 | P.PNIM_ITS ---
Subjective Subjective Date of Service: 12/29/24 Physical Exam 2 Vital Signs: Vital Signs: Last Vital Signs Temp 97.4 F 12/29/24 04:00 Pulse 64 12/29/24 04:00 Resp 18 12/29/24 04:00 BP 108/67 12/29/24 04:00 Pulse Ox 93 12/29/24 04:00 O2 Del Method Room Air 12/29/24 04:00 O2 Flow Rate 2 12/28/24 12:41 BMI result Body Mass Index 27.7 Objective Data Active Medications Acetaminophen (Acetaminophen 325 Mg Tablet) 650 mg PO Q6H PRN PRN Reason: Pain, Mild 1-3,fever,headache Albuterol Sulfate (Albuterol Sulfate 90 Mcg 8 Gm Inhaler) 2 puff INHALE Q4H PRN PRN Reason: shortness of breath or wheezing Apixaban (Apixaban 5 Mg Tablet) 5 mg PO BID [facility] Last Admin: 12/28/24 20:33 Dose: 5 mg Documented By: DAIJA Atorvastatin Calcium (Atorvastatin Calcium 20 Mg Tablet) 20 mg PO DAILY [facility] Last Admin: 12/28/24 08:23 Dose: 20 mg Documented By: NORA Calcium Carbonate (Calcium Carbonate 750 Mg Tab.Chew) 750 mg PO Q4H PRN PRN Reason: Heartburn Dronedarone (Dronedarone Hcl 400 Mg Tablet) 400 mg PO BID [facility] Last Admin: 12/28/24 20:34 Dose: 400 mg Documented By: DAIJA Levothyroxine Sodium (Levothyroxine Sodium 200 Mcg Tablet) 200 mcg PO DAILY@0600 [facility] Last Admin: 12/29/24 06:03 Dose: 200 mcg Documented By: CINDY Magnesium Hydroxide (Milk Of Magnesia 30 Ml Oral.Susp) 30 ml PO DAILY PRN PRN Reason: Constipation Melatonin (Melatonin 3 Mg Tablet) 6 mg PO BEDTIME PRN PRN Reason: Insomnia Metoprolol Tartrate (Metoprolol Tartrate 50 Mg Tablet) 50 mg PO BID [facility]; Protocol Last Admin: 12/28/24 20:33 Dose: 50 mg Documented By: DAIJA Naloxone HCl (Naloxone Hcl 0.4 Mg/Ml Vial) 0.04 mg IVPUSH Q5M PRN PRN Reason: Excessive sedation or RR < 8 Ondansetron HCl (Ondansetron Hcl 4 Mg/2 Ml Vial) 4 mg IVPUSH Q8H PRN PRN Reason: Nausea and Vomiting Sodium Chloride (0.9 % Sodium Chloride Flush 3 Ml Syringe) 3 ml IVFLUSH QSHIFT [facility] Last Admin: 12/28/24 20:37 Dose: 3 ml Documented By: DAIJA Labs 12/22/24 03:42 12/24/24 06:46 Quality Stroke Does the patient have a stroke diagnosis?: No VTE Prior VTE?: No VTE Risk Level:: Medical - moderate - high VTE Device Contraindication: Treatment Not Indicated VTE Drug Contraindication: N/A - Med Ordered
--- NOTE | 2024-12-29 08:16 | HO.POSTANES ---
Post Anesthesia Evaluation Post Anesthesia Evaluation Date of Service: 12/29/24 Vital Signs: Vital Signs Temp Pulse Resp BP Pulse Ox O2 Del Method 12/29/24 07:09 97.6 F 65 18 114/70 94 Room Air 12/29/24 04:00 97.4 F 64 18 108/67 93 Room Air 12/28/24 23:37 97.2 F 71 16 112/57 L 97 Room Air Anesthesia: General Mental Status: Awake Pain Control: Satisfactory Nausea/Vomiting: None Hydration: Adequate Anesthesia-Related Issues: No Anes. Related Issues
[2024-12-29] MEDS: 0.9 % Sodium Chloride Flush 3 ML SYRINGE IVFLUSH (08:18)
[2024-12-29 11:08] VITALS: BP 110/65; PULSE 60; RESP 18; TEMP 36.4; O2SAT 98
--- NOTE | 2024-12-29 11:50 | MHC.CM.PN ---
Patient has been medically cleared for dc to home today, self care.
== END 2024-12-29 15:13 | disposition home or self-care (01) | DRG 308 ==
LOC: HO.ED 13:53 → HO.EDOVER 15:15 → HO.IMC 12-22 14:53
PROVIDERS: Internal Medicine Cardiovascular Disease; Student in an Organized Health Care Education/Training Program; Admitting Provider Nurse Practitioner Acute Care; Emergency Provider Emergency Medicine; PCP Internal Medicine; Visit Provider Student in an Organized Health Care Education/Training Program
PROC: 5A2204Z Restoration of Cardiac Rhythm, Single (ICD-10-PCS; CPT 93312; principal; 2024-12-25 14:00)
PROC: 5A2204Z Restoration of Cardiac Rhythm, Single (ICD-10-PCS; 2024-12-25 14:00)
DX: I48.92 Unspecified atrial flutter (principal); I50.21 Acute systolic (congestive) heart failure; E89.0 Postprocedural hypothyroidism; E78.5 Hyperlipidemia, unspecified; I34.0 Nonrheumatic mitral (valve) insufficiency; Z87.891 Personal history of nicotine dependence; Z85.850 Personal history of malignant neoplasm of thyroid; Z79.01 Long term (current) use of anticoagulants; Z79.890 Hormone replacement therapy; Z79.899 Other long term (current) drug therapy
CPT/HCPCS: 36415; 71045; 80048; 80053; 83735; 83880; 84439; 84443; 84484; 85025; 85610; 92960; 93005; 93308; 93970; 99212; 99285; J0616; J1163; J1938; J2704; J7120; Q9957

== ENCOUNTER → 2024-12-21 10:50 | Outpatient (BNV) | payer MEDICARE, SELFPAY | PROVIDERS: Emergency Provider Emergency Medicine; PCP Internal Medicine; Visit Provider Radiology Diagnostic Radiology | DX: M79.604 Pain in right leg (principal); M79.605 Pain in left leg; R22.43 Localized swelling, mass and lump, lower limb, bilateral; R00.0 Tachycardia, unspecified; R06.02 Shortness of breath | CPT/HCPCS: 71045; 93970 ==

== ENCOUNTER 2024-12-21 15:14 | Outpatient (BNV) | payer MEDICARE, SELFPAY | END 2024-12-26 08:40 | PROVIDERS: Admitting Provider Nurse Practitioner Acute Care; Emergency Provider Emergency Medicine; PCP Internal Medicine; Visit Provider Internal Medicine Cardiovascular Disease | DX: I48.92 Unspecified atrial flutter (principal) | CPT/HCPCS: 93010 ==

== ENCOUNTER 2024-12-21 15:14 | Outpatient (BNV) | payer MEDICARE, SELFPAY | END 2024-12-22 02:05 | PROVIDERS: Admitting Provider Nurse Practitioner Acute Care; Emergency Provider Emergency Medicine; PCP Internal Medicine; Visit Provider Internal Medicine Cardiovascular Disease | DX: I34.0 Nonrheumatic mitral (valve) insufficiency (principal); I44.0 Atrioventricular block, first degree; I48.92 Unspecified atrial flutter | CPT/HCPCS: 93010; 93308 ==

== ENCOUNTER 2024-12-21 15:14 | Outpatient (BNV) | payer MEDICARE, SELFPAY | END 2024-12-25 23:02 | PROVIDERS: Admitting Provider Nurse Practitioner Acute Care; Emergency Provider Emergency Medicine; PCP Internal Medicine; Visit Provider Internal Medicine Cardiovascular Disease | DX: I48.92 Unspecified atrial flutter (principal) | CPT/HCPCS: 93010 ==

== ENCOUNTER 2024-12-21 15:14 | Outpatient (BNV) | payer MEDICARE, SELFPAY | END 2024-12-28 12:21 | PROVIDERS: Admitting Provider Nurse Practitioner Acute Care; Emergency Provider Emergency Medicine; PCP Internal Medicine; Visit Provider Internal Medicine Cardiovascular Disease | DX: Z13.6 Encounter for screening for cardiovascular disorders (principal) | CPT/HCPCS: 93010 ==

== ENCOUNTER → 2024-12-21 15:14 | Outpatient (BNV) | payer MEDICARE, SELFPAY | PROVIDERS: Admitting Provider Nurse Practitioner Acute Care; Emergency Provider Emergency Medicine; PCP Internal Medicine; Visit Provider Internal Medicine Cardiovascular Disease | DX: I48.3 Typical atrial flutter (principal) | CPT/HCPCS: 99223; 99232; 99233 ==

== ENCOUNTER → 2024-12-21 15:14 | Outpatient (BNV) | payer MEDICARE, SELFPAY | PROVIDERS: Admitting Provider Nurse Practitioner Acute Care; Emergency Provider Emergency Medicine; PCP Internal Medicine; Visit Provider Nurse Practitioner Acute Care | DX: I48.3 Typical atrial flutter (principal) | CPT/HCPCS: 99223; 99233 ==

== ENCOUNTER 2025-01-18 14:13 | Outpatient (AMB) | payer MEDICARE, SELFPAY ==
--- OUTSIDE RECORDS SUMMARY | 2013-01-08 | XMS_ITS | Encounter Summary ---
Author Organization [facility] Address [address] [place] [phone] Phone Care Team Providers Care Meat Molder Name Role Phone Unavailable Primary Care Provider Unavailabl e Encounter Details Date Type Department Care Team (Late st Contact Info) Description 01/08/2013 Hospital Encounter [facility],Outside Imaging [address] [place] [address] System, Provider Not In, [place] [address] Social History Tobacco Use Types Packs/Day Years [...] 11:10 AM EDT Hyun Carrasquillo RN * [place] Suicide Severity Rating Scale (Screener/Recent Self-Report) Question [...] st Contact Info) Description 02/20/2024 Procedure Pass [facility] Radiology [address] [place] [address] 02/25/2025 2:00 PM EST Appointment [facility] Radiology [address] [place] [address] Benji Hardwick MD, MPH [address] [place] [phone] [email or web address] 02/25/2025 2:30 PM EST Appointment [facility] Pulmonary Function Lab [address] [place] [address] Benji Hardwick MD, MPH [address] [place] [phone] [email or web address] 02/25/2025 3:40 PM EST Office Visit [facility] [address] [place] [address] Benji Hardwick MD, MPH [address] [place] [phone] [email or web address] 03/19/2025 9:40 AM EST Office Visit [facility] [address] [place] [address] Tanisha Rajan MD [address] [place] [phone] (work) [email or web address] documented as of this encounter Procedures Procedure [...] It is not the complete legal health record.[facility]
[2025-01-18 14:27] VITALS: BP 138/62; PULSE 46; BMI 28.4
--- NOTE | 2025-01-18 14:27 | A.OFFVIS_ITS ---
Vital Signs 01/18/25 14:27 Height 6 ft 4 in Weight 233 lb 3.985 oz BMI 28.4 BP 138/62 Blood Pressure Location Lt brachial Position Sitting Pulse 46 L Pulse Source Monitor Intake Visit Reasons: s/p cardioversion/EKG NS Dependency Program Director Required: No Allergies bee pollen (bee stings) Allergy (Severe, Verified 01/18/25 14:30) Anaphylaxis Medication List - Last Reconciled 01/18/25 by DONNA Moore albuterol sulfate 90 mcg/actuation 2 puffs inhalation Q4H PRN 90 days apixaban (Eliquis) 5 mg PO BID 30 days atorvastatin 20 mg PO DAILY 90 days dronedarone (Multaq) 400 mg PO BID 30 days epinephrine (EpiPen 2-[place]) 0.3 mg (0.3 mL) IM Q10M PRN levothyroxine 200 mcg PO DAILY@0600 metoprolol tartrate 50 mg See Protocol PO BID 30 days nebulizers nebulizer with tubing NS tiotropium-olodaterol 2.5-2.5 mcg/actuation (Stiolto Respimat) 2 puffs inhalation DAILY HPI HPI s/p cardioversion/EKG NS: Details: The patient is a 80 year old individual presenting for follow-up of atrial flutter. The patient was recently hospitalized for new-onset atrial flutter with RVR. Initially treated with rate control, the patient underwent JT cardioversion on 12/25/2024, but had a recurrence of atrial flutter with RVR and required a repeat cardioversion on 12/28/2024. The patient was discharged in sinus rhythm on Multaq, metoprolol, and Eliquis for anticoagulation. The JT on 12/25/2024 showed no left atrial appendage thrombus, a normal ejection fraction, and no regional wall motion abnormalities, indicating the heart muscle was not weakened by the arrhythmia. The patient reports feeling pounding in the chest, on the day of his ED evaluation, but was not aware of the arrhythmia or symptoms prior to that. Since discharge, the patient has been experiencing fatigue and sleeps a lot. The patient also reports some trouble breathing, which may be slightly worse than ba seline, attributes it to COPD, and denies chest pains. The patient notes slight leg swelling, which is not new. Relevant past medical history includes a diagnosis of pseudogout in May, which caused significant pain and difficulty walking, requiring a visit to the ER. No reoccurrences since then. He had never had cardiac issues until now. is present. [facility] Medical History Thyroid cancer Agent orange exposure COPD (chronic obstructive pulmonary disease) Surgical History Hx of spinal surgery History of ptosis repair Voice impairment History of transurethral resection of prostate Epidermal inclusion cyst History of right knee surgery S/P foot surgery, right Right shoulder injury History of thyroidectomy Neoplasm of right patella Inguinal hernia bilateral, non-recurrent Left hand pain Family History Mother Coronary artery disease Pulmonary embolism Father Cancer of prostate Social History Household Members: Significant Other Housing: House Are you a primary senior resident care director to a significant other at home: No Do you presently have visiting nurse or other home services: No Alcohol intake: never Comment: low fall Patient Tobacco Use Status: Former Tobacco user Cigarette Packs Per Day: 0.5 Years Smoked: 3 e-Cigarette/Vaping Use: Never Used Second Hand Smoke Exposure: No service: Yes Current occupational status: retired Cognitive needs: No Hearing needs: Yes (bilateral hearing aids) Vision needs: Yes (glasses) Review of Systems Const All systems reviewed & are unremarkable except as noted in HPI and below Reports fatigue and Reports lethargy ENT Denies dizziness Card Denies chest pain, Denies chest pain at rest, Denies chest pain with activity, Denies rapid heart rate, Denies pedal edema, Denies edema, Denies leg edema, Denies lightheadedness, Denies palpitations, Denies dyspnea, Denies dyspnea on exertion and Denies orthopnea Resp Denies cough, Denies dyspnea and Denies dyspnea on exertion GI Denies hematochezia and Denies change in stool character Musc Denies abnormal gait, Denies limited range of motion, Denies muscle cramps, Denies muscle weakness, Denies numbness, Denies radiating pain into limb, Denies stiffness and Denies tingling Neuro Denies abnormal gait, Denies dizziness, Denies numbness and Denies tingling Endo Reports fatigue and Denies palpitations Physical Exam Vital Signs: Last Vital Signs Pulse 46 L 01/18/25 14:27 BP 138/62 01/18/25 14:27 BMI result Body Mass Index 28.4 Const General: cooperative, healthy appearing, comfortable and no acute distress Orientation/consciousness: patient oriented x3 Neck Neck: Yes normal visual inspection and Yes no JVD Resp Effort & Inspection: normal respiratory effort Auscultation: clear to auscultation bilaterally, no crackles, no rales, no rhonchi and no wheezes Cardio Jugular venous distension: no JVD Rate: bradycardic Rhythm: regular rhythm Heart sounds: S1 normal heart sound present, S2 normal heart sound present, no gallops, no murmurs and no rubs Peripheral pulses: Peripheral pulses 2+ throughout Neuro General: patient oriented x3 Extrem General: Yes normal to inspection and No no pedal edema Psych Appearance: grossly normal Mental Status: mental status grossly normal Speech and movement: Normal speech and movement present Office Procedures EKG Details: Today, read by me Sinus Bradycardia, rate 46, Qtc 432ms [id number], Complete Assessment & Plan Assessment & Plan (1) Atrial flutter: Code(s): I48.92 - Unspecified atrial flutter Category: Medical Qualifiers: Atrial flutter type: typical Qualified Code(s): I48.3 - Typical atrial flutter Plan: Recent finding of new onset atrial flutter of unknown duration requiring hospital admission, rate control and cardioversion x2. Echocardiogram had shown EF 55-60%, mild increase in RV size with normal RV systolic function. He was discharged on Multaq and metoprolol for rhythm control and Eliquis for anticoagulation. EKG today showing sinus bradycardia, rate 46, QTC 432 milliseconds. He brings a log with daily blood pressures and pulse rates since hospital discharge showing average rates 46 to low 60s. He has symptoms of fatigue, sleepiness. Will have him reduce his metoprolol down to 25 mg b.i.d. from 50 mg b.i.d.. Continue Multaq. Continue Eliquis for anticoagulation. Will refer to EP for atrial flutter ablation. Will check home sleep study to evaluate for sleep apnea. He is agreeable to this plan. Cardiology office visit 6-8 weeks, sooner if needed. (2) Sinus bradycardia: Code(s): R00.1 - Bradycardia, unspecified Category: Medical Plan: Sinus bradycardia on EKG today. Seems symptomatic with fatigue and sleepiness. Reducing metoprolol. (3) Hospital discharge follow-up: Code(s): Z51.89 - Encounter for other specified aftercare Category: Medical Plan: Hospital notes reviewed. (4) Hypersomnia: Code(s): G47.10 - Hypersomnia, unspecified Category: Medical Plan I explained to the patient the difference between atrial flutter and atrial fibrillation, noting they are treated similarly due to the increased risk of stroke. We discussed that the patient's current symptom of fatigue is likely due to a low heart rate caused by the prescribed medications, particularly metoprolol. I outlined the plan to reduce the metoprolol dose from 50 mg twice a day to 25 mg twice a day, with the goal of increasing the patient's heart rate to the 50s- 70s range and improving energy levels. I emphasized the importance of continuing Eliquis for stroke prevention, as atrial flutter can recur, and the patient confirmed no bleeding issues. We discussed the recommendation for an atrial flutter ablation, which was mentioned in the hospital discharge notes. I explained that this is a procedure performed by a cardiac direct marketing manager to find and scar the abnormal electrical pathway, and that I would place a referral to [facility]. I provided instructions to monitor pulse rates at home and to contact me in 2-3 weeks with the results, either by calling the office nurse or sending a message through the patient portal, so we can assess the effect of the medication change. Orders: Orders RT home sleep study Today G47.10 - Hypersomnia, unspecified Referrals Cardiac Electrophysiology Referral I48.3 - Typical atrial flutter Medications: New metoprolol tartrate 25 mg PO BID 60 tabs 2RF Discontinued metoprolol tartrate Discontinued Reason: Doctor's Order 50 mg See Protocol PO BID 30 days 60 tabs 3RF Patient Instructions: - Starting tonight, reduce your Metoprolol dose. - Cut your current 50 mg Metoprolol pills in half and take one half in the morning and one half in the evening. - A new prescription for 25 mg tablets will be sent to the [place] pharmacy. - Continue taking your other heart medications, Multaq and Eliquis, as prescribed. - Keep checking your heart rate at home and keep a log. - Contact the office in 2 to 3 weeks to report your average heart rate. - You can call and leave a message for the nurse or send a message to Chery Scott through the patient portal. - A referral will be made for you to see a heart electricity specialist (direct marketing manager) to discuss a procedure called an ablation. - Watch for any signs of bleeding, such as blood in the urine or stool, or nosebleeds, since you are on a blood thinner. - Let us know if you experience worsening shortness of breath, especially when lying down. Patient was informed and verbally consented to the use of an ambient scribe for clinic note documentation during this visit. Visit time spent on chart review, interview, assessment, orders, documentation. Coding Level of Care Code Est Pt Level 4 (49378) Complex visit Add On G2211 Diagnoses Atrial flutter I48.3 Atrial flutter type: typical Sinus bradycardia R00.1 Hospital discharge follow-up Z51.89 Hypersomnia G47.10 CPT Codes EKG - CPT: 17628-[id number], Complete ([id number]) Time Spent (min) 32
--- OUTSIDE RECORDS SUMMARY | 2025-01-18 17:37 | XMS_ITS | Encounter Summary ---
Author Organization [facility] Address [address] [place] [address] [place] [address] Phone Care Team Providers Care Cloth Pattern Maker Name Role Phone Aaliyah Smith MD Primary Care Provider + [phone] Sudhakar Curtis MD Unavailable [phone] Aaliyah Smith MD Primary Care Provider + [phone] Encounter Details Date Type Department Care Team (Late st Contact Info) Description 12/18/2022 Procedure Pass [facility] [place], [address] [address] Social History Tobacco Use Types Packs/Day Years [...] st Contact Info) Description 02/20/2024 Procedure Pass [facility] Rad[facility] [address] [place] [address] 02/25/2025 2:00 PM EST Appointment [facility] [address] [place] [address] Benji Hardwick MD, MPH [address] [place] [phone] [email or web address] 02/25/2025 2:30 PM EST Appointment [facility] Pulmonary Function Lab [address] [place] [address] Benji Hardwick MD, MPH [address] [place] [phone] [email or web address] 02/25/2025 3:40 PM EST Office Visit [facility] [address] [place] [address] Benji Hardwick MD, MPH [address] [place] [phone] [email or web address] 03/19/2025 9:40 AM EST Office Visit [facility] [address] [place] [address] Tanisha Rajan MD [address] [place] [phone] [email or web address] documented as of this encounter Visit Diagnoses Not on filedocumented in this encounter Additional Health Concerns Assessment Noted Time PHQ-2 Depression Total Score: 0 12/26/19 23 9:51 AM EST documented as of this encounter Care Teams Cloth Pattern Maker Relationship Specialty Start Date End Date Aaliyah Smith MD PCP - General Internal Medicine 01/01/18 07/10/23 Aaliyah Smith MD PCP - General Internal Medicine 11/14/23 Sudhakar Curtis MD [address] [place] [phone] [email or web address] Surgery 12/21/22 documented as of this encounter Additional Source Comments The information contained in this document represents components of the legal health record. It is not the complete legal health record.[facility]
--- OUTSIDE RECORDS SUMMARY | 2025-01-18 17:37 | XMS_ITS | Encounter Summary ---
Author Organization [facility] Address [address] [facility] [address] [place] [address] Phone Care Team Providers Care Franchise Consultant Name Role Phone Aaliyah Smith MD Primary Care Provider + [phone] Sudhakar Curtis MD Unavailable [phone] Aaliyah Smith MD Primary Care Provider + [phone] Encounter Details Date Type Department Care Team (Late st Contact Info) Description 12/27/2020 Procedure Pass [facility] Periop [address] [place] [address] Social History Tobacco Use Types Packs/Day Years [...] st Contact Info) Description 02/20/2024 Procedure Pass [facility] [address] [place] [address] 02/25/2025 2:00 PM EST Appointment [facility] Radiology [address] [place] [address] Benji Hardwick MD, MPH [address] [facility] [address] [place] [address] [email or web address] 02/25/2025 2:30 PM EST Appointment [facility] Pulmonary Function Lab [address] [place] [address] Benji Hardwick MD, MPH [address] [place] [phone] [email or web address] 02/25/2025 3:40 PM EST Office Visit [facility] [address] [place] [address] Benji Hardwick MD, MPH [address] [place] [phone] [email or web address] 03/19/2025 9:40 AM EST Office Visit [facility] [address] [place] [address] Tanisha Rajan MD [address] [place] [phone] [email or web address] documented as of this encounter Visit Diagnoses Not on filedocumented in this encounter Care Teams Franchise Consultant Relationship Specialty Start Date End Date Aaliyah Smith MD PCP - General Internal Medicine 01/01/18 07/10/23 Aaliyah Smith MD PCP - General Internal Medicine 11/14/23 Sudhakar Curtis MD [address] [place] [address] [email or web address] Surgery 12/21/22 documented as of this encounter Additional Source Comments The information contained in this document represents components of the legal health record. It is not the complete legal health record.[facility]
--- OUTSIDE RECORDS SUMMARY | 2025-01-18 17:37 | XMS_ITS | Encounter Summary ---
Author Organization [facility] Address [address] [facility] [address] [place] [address] Phone Care Team Providers Care Salon Receptionist Name Role Phone Aaliyah Smith MD Primary Care Provider [phone] Sudhakar Curtis MD Unavailable [phone] Aaliyah Smith MD Primary Care Provider + [phone] Encounter Details Date Type Department Care Team (Late st Contact Info) Description 10/17/2020 Procedure Pass [address] [place] [address] Social History Tobacco Use Types Packs/Day Years [...] st Contact Info) Description 02/20/2024 Procedure Pass [facility] [address] [place] [address] 02/25/2025 2:00 PM EST Appointment [facility] [address] [place] [address] Benji Hardwick MD, MPH [address] [phone] [email or web address] 02/25/2025 2:30 PM EST Appointment [facility] Pulmonary Function Lab [address] [place] [address] Benji Hardwick MD, MPH [address] [place] [phone] [email or web address] 02/25/2025 3:40 PM EST Office Visit [facility] [address] [place] [address] Benji Hardwick MD, MPH [address] [place] [phone] [email or web address] 03/19/2025 9:40 AM EST Office Visit [facility] [address] [place] [address] Tanisha Rajan MD [address] [place] [phone] [email or web address] documented as of this encounter Visit Diagnoses Not on filedocumented in this encounter Additional Health Concerns Infection Onset Date Last Indicated Resolved Time CoV-Risk 11/02/2020 11/02/2020 11/12/2020 1:23 AM EDT documented as of this encounter Care Teams Salon Receptionist Relationship Specialty Start Date End Date Aaliyah Smith MD PCP - General Internal Medicine 01/01/18 07/10/23 Aaliyah Smith MD PCP - General Internal Medicine 11/14/23 Sudhakar Curtis MD [address] [place] [phone] [email or web address] Surgery 12/21/22 documented as of this encounter Additional Source Comments The information contained in this document represents components of the legal health record. It is not the complete legal health record.[facility]
--- OUTSIDE RECORDS SUMMARY | 2025-01-18 17:37 | XMS_ITS | Encounter Summary ---
Author Organization [facility] Address [address] [facility] [address] [place] [address] Phone Care Team Providers Care Auto Club Travel Counselor Name Role Phone Aaliyah Smith MD Primary Care Provider [phone] Sudhakar Curtis MD Unavailable [phone] Aaliyah Smith MD Primary Care Provider + [phone] Encounter Details Date Type Department Care Team (Late st Contact Info) Description 10/17/2020 Procedure Pass [address] [place] [address] Social History Tobacco Use Types Packs/Day Years [...] st Contact Info) Description 02/20/2024 Procedure Pass [facility] [address] [place] [address] 02/25/2025 2:00 PM EST Appointment [facility] [address] [place] [address] Benji Hardwick MD, MPH [address] [address] [email or web address] 02/25/2025 2:30 PM EST Appointment [facility] Pulmonary Function Lab [address] [place] [address] Benji Hardwick MD, MPH [address] [place] [phone] [email or web address] 02/25/2025 3:40 PM EST Office Visit [facility] [address] [place] [address] Benji Hardwick MD, MPH [address] [place] [phone] [email or web address] 03/19/2025 9:40 AM EST Office Visit [facility] [address] [place] [address] Tanisha Rajan MD [address] [place] [phone] [email or web address] documented as of this encounter Visit Diagnoses Not on filedocumented in this encounter Additional Health Concerns Infection Onset Date Last Indicated Resolved Time CoV-Risk 11/02/2020 11/02/2020 11/12/2020 1:23 AM EDT documented as of this encounter Care Teams Auto Club Travel Counselor Relationship Specialty Start Date End Date Aaliyah Smith MD PCP - General Internal Medicine 01/01/18 07/10/23 Aaliyah Smith MD PCP - General Internal Medicine 11/14/23 Sudhakar Curtis MD [address] [place] [phone] [email or web address] Surgery 12/21/22 documented as of this encounter Additional Source Comments The information contained in this document represents components of the legal health record. It is not the complete legal health record.[facility]
--- OUTSIDE RECORDS SUMMARY | 2025-01-18 17:37 | XMS_ITS | Encounter Summary ---
Author Organization [facility] Address [address] [facility] [address] [place] [address] Phone Care Team Providers Care Refrigerating Engineer Head Name Role Phone Aaliyah Smith MD Primary Care Provider + [phone] Sudhakar Curtis MD Unavailable [phone] Aaliyah Smith MD Primary Care Provider + [phone] Encounter Details Date Type Department Care Team (Late Contact Info) Description 12/20/2020 Procedure Pass [facility] Echocardiography [address] [place] [address] Social History Tobacco Use Types Packs/Day Years [...] (Late Contact Info) Description 02/20/2024 Procedure Pass [facility] Radiology [address] [place] [address] 02/25/2025 2:00 PM EST Appointment [facility] Radiology [address] [place] [address] Benji Hardwick MD, MPH [address] [address] [email or web address] 02/25/2025 2:30 PM EST Appointment [facility] Pulmonary Function Lab 15 [place] [address] Benji Hardwick MD, MPH [address] [place] [address] [email or web address] 02/25/2025 3:40 PM EST Office Visit [facility] 15 [place] [address] Benji Hardwick MD, MPH [address] [place] [address] [email or web address] 03/19/2025 9:40 AM EST Office Visit [facility] [address] [place] [address] Tanisha Rajan MD [address] [place] [address] [email or web address] documented as of this encounter Visit Diagnoses Not on filedocumented in this encounter Care Teams Refrigerating Engineer Head Relationship Specialty Start Date End Date Aaliyah Smith MD PCP - General Internal Medicine 01/01/18 07/10/23 Aaliyah Smith MD PCP - General Internal Medicine 11/14/23 Sudhakar Curtis MD [address] [place] [address] [email or web address] Surgery 12/21/22 documented as of this encounter Additional Source Comments The information contained in this document represents components of the legal health record. It is not the complete legal health record.[facility]
--- OUTSIDE RECORDS SUMMARY | 2025-01-18 17:37 | XMS_ITS | Encounter Summary ---
Author Organization [facility] Address [address] [facility] [address] [place] [address] Phone Care Team Providers Care Oil Distributor Name Role Phone Aaliyah Smith MD Primary Care Provider Sudhakar Curtis MD Unavailable [phone] Aaliyah Smith MD Primary Care Provider [phone] Encounter Details Date Type Department Care Team (Late st Contact Info) Description 05/14/2023 Ancillary Orders [facility], X-Ray - [facility] [address] [place] [address] Aaliyah Smith MD [address] [place] [address] [phone] Encounter for other preprocedural examination (Primary Dx) [...] st Contact Info) Description 02/20/2024 Procedure Pass [facility] Radiology 75 [place] [address] 02/25/2025 2:00 PM EST Appointment [facility] Radiology [address] [place] [address] Benji Hardwick MD, MPH [address] [place] [address] [email or web address] 02/25/2025 2:30 PM EST Appointment [facility] Pulmonary Function Lab [address] [place] [address] Benji Hardwick MD, MPH [address] [place] [address] [email or web address] 02/25/2025 3:40 PM EST Office Visit [facility] [address] [place] [address] Benji Hardwikc MD, MPH [address] [place] [address] [email or web address] 03/19/2025 9:40 AM EST Office Visit [facility] [address] [place] [address] Tanisha Rajan MD [address] [place] [address] documented as of this encounter Results * XR CHEST PA AND LATERAL 2 VIEWS (05/14/2023 11:22 AM EDT) Anatomical Region Laterality Modality Chest Computed Radiogr aphy 05/14/2023 2:24 PM EDT Impressions 05/14/2023 2:27 PM EDT No acute findings. Narrative 05/14/2023 2:27 PM EDT XR CHEST PA AND LATERAL 2 VIEWS Referring clinician's provided indication for this examination in [facility]: Pre-Op COMPARISON: 06/19/2022 FINDINGS: Lungs: Clear lungs. Pleura: No pleural effusion. No pneumothorax Heart/Mediastinum: Heart size normal. Bones/Soft Tissues: No acute finding Procedure Note Kyler Harris MD, SIRIA - 05/14/2023 XR CHEST PA AND LATERAL 2 VIEWS Referring clinician's provided indication for this examination in [facility]:Pre-Op COMPARISON: 06/19/2022 FINDINGS: Lungs: Clear lungs. [...] documented as of this encounter Care Teams Oil Distributor Relationship Specialty Start Date End Date Aaliyah Smith MD PCP - General Internal Medicine 01/01/18 07/10/23 Aaliyah Smith MD PCP - General Internal Medicine 11/14/23 Sudhakar Crutis MD [address] [place] [address] [email or web address] Surgery 12/21/22 documented as of this encounter Additional Source Comments The information contained in this document represents components of the legal health record. It is not the complete legal health record.[facility]
--- OUTSIDE RECORDS SUMMARY | 2025-01-18 17:37 | XMS_ITS | Encounter Summary ---
Author Organization [facility] Address [address] [place] [address] [place] [address] Phone Care Team Providers Care Hypoid Gear Tester Name Role Phone Aaliyah Smith MD Primary Care Provider + [phone] Sudhakar Curtis MD Unavailable [phone] Aaliyah Smith MD Primary Care Provider + [phone] Reason for Referral * MRI/CAT Scan - Closed Specialty Diagnoses / Procedures Referred By Contac t Referred To Contact Radiology Diagnoses DDD (degenerative disc disease), lumbar Lumbar radiculopathy Foraminal stenosis of lumbar region Procedures CT Lumbar Spine Edin Ibrahim PA Phone: tel: fax: Referral ID Status Reason Start Date Expiration Date Visits Re quested Visits Authorized [id number] Closed 02/23/2023 1 1 Encounter Details Date Type Department Care Team (Latest Contact Info) Description 02/23/2023 Transcribe Orders Virtual Department [address] [place] [address] Edin Ibrahim PA [address] [place] [address] DDD (degenerative disc disease), lumbar (Primary Dx); [...] st Contact Info) Description 02/20/2024 Procedure Pass [facility] Radiology [address] [place] [address] 02/25/2025 2:00 PM EST Appointment [facility] Radiology [address] [place] [address] Benji Hardwick MD, MPH [address] [place] [address] [email or web address] 02/25/2025 2:30 PM EST Appointment [facility] Pulmonary Function Lab [address] [place] [address] Benji Hardwick MD, MPH [address] [place] [address] [email or web address] 02/25/2025 3:40 PM EST Office Visit [facility] [address] [place] [address] Benji Hardwick MD, MPH [address] [place] [address] [email or web address] 03/19/2025 9:40 AM EST Office Visit [facility] [address] [place] [address] [place] [address] Tanisha Rajan MD [address] [place] [address] [email or web address] documented as of this encounter Results * [...] documented as of this encounter Care Teams Hypoid Gear Tester Relationship Specialty Start Date End Date Aaliyah Smith MD PCP - General Internal Medicine 01/01/18 07/10/23 Aaliyah Smith MD PCP - General Internal Medicine 11/14/23 Sudhakar Curtis MD [address] [place] [address] [email or web address] Orthopedic Surgery 12/21/22 documented as of this encounter Additional Source Comments The information contained in this document represents components of the legal health record. It is not the complete legal health record.[facility]
--- OUTSIDE RECORDS SUMMARY | 2025-01-18 17:37 | XMS_ITS | Encounter Summary ---
Author Organization [facility] Address [address] [facility] [address] [place] [address] Phone Care Team Providers Care Director East Coast Sales Name Role Phone Aaliyah Smith MD Primary Care Provider [phone] Sudhakar Curtis MD Unavailable [phone] Aaliyah Smith MD Primary Care Provider + [phone] Encounter Details Date Type Department Care Team (Late st Contact Info) Description 06/05/2021 Procedure Pass [facility] Admitting Dept Virtual Department [address] [place] [address] Social History Tobacco Use Types Packs/Day Years [...] Procedure Pass [facility] 75 [place] [address] 02/25/2025 2:00 PM EST Appointment [facility] 75 [place] [address] Benji Hardwick MD, MPH 15 [facility] [address] [place] [address] [email or web address] 02/25/2025 2:30 PM EST Appointment [facility] Pulmonary Function Lab 15 [place] [address] Benji Hardwick MD, MPH [address] [place] [address] [email or web address] 02/25/2025 3:40 PM EST Office Visit [facility] for Chest Diseases 15 [place] [address] Bejni Hardwick MD, MPH [address] [place] [address] [email or web address] 03/19/2025 9:40 AM EST Office Visit [facility] [address] [place] [address] Tanisha Rajan MD [address] [place] [address] [email or web address] documented as of this encounter Visit Diagnoses Not on filedocumented in this encounter Additional Health Concerns Assessment Noted Time PHQ-2 Depression Total Score: 0 01/12/20 21 10:23 AM EST documented as of this encounter Care Teams Director East Coast Sales Relationship Specialty Start Date End Date Aaliyah Smith MD PCP - General Internal Medicine 01/01/18 07/10/23 Aaliyah Smith MD PCP - General Internal Medicine 11/14/23 Sudhakar Curtis MD [address] [place] [address] [email or web address] Surgery 12/21/22 documented as of this encounter Additional Source Comments The information contained in this document represents components of the legal health record. It is not the complete legal health record.[facility]
--- OUTSIDE RECORDS SUMMARY | 2025-01-18 17:37 | XMS_ITS | Encounter Summary ---
Author Organization [facility] Address [address] [facility] [address] [place] [address] Phone Care Team Providers Care Fatback Trimmer Name Role Phone Aaliyah Smith MD Primary Care Provider [phone] Sudhakar Curtis MD Unavailable [phone] Aaliyah Smith MD Primary Care Provider + [phone] Encounter Details Date Type Department Care Team (Late st Contact Info) Description 11/29/2020 Procedure Pass [address] [address] Social History Tobacco Use Types Packs/Day Years [...] st Contact Info) Description 02/20/2024 Procedure Pass [facility] 75 [place] [address] 02/25/2025 2:00 PM EST Appointment [facility] 75 [place] [address] Benji Hardwick MD, MPH 15 [facility] [address] [place] [address] [email or web address] 02/25/2025 2:30 PM EST Appointment [facility] Pulmonary Function Lab 15 [place] [address] Benji Hardwick MD, MPH [address] [place] [address] [email or web address] 02/25/2025 3:40 PM EST Office Visit [facility] for Chest Diseases 15 [place] [address] Benji Hardwick MD, MPH [address] [place] [phone] [email or web address] 03/19/2025 9:40 AM EST Office Visit [facility] [address] [place] [address] Tanisha Rajan MD [address] [place] [address] [email or web address] documented as of this encounter Visit Diagnoses Not on filedocumented in this encounter Care Teams Fatback Trimmer Relationship Specialty Start Date End Date Aaliyah Smith MD PCP - General Internal Medicine 01/01/18 07/10/23 Aaliyah Smith MD PCP - General Internal Medicine 11/14/23 Sudhakar Curtis MD [address] [place] [address] [email or web address] Orthopedic Surgery 12/21/22 documented as of this encounter Additional Source Comments The information contained in this document represents components of the legal health record. It is not the complete legal health record.[facility]
--- OUTSIDE RECORDS SUMMARY | 2025-01-18 17:37 | XMS_ITS | Encounter Summary ---
Author Organization [facility] Address [address] [place] [address] [place] [address] Phone Care Team Providers Care Recreation Superintendent Name Role Phone Aaliyah Smith MD Primary Care Provider + [phone] Sudhakar Curtis MD Unavailable [phone] Aaliyah Smith MD Primary Care Provider + [phone] Encounter Details Date Type Department Care Team (Late st Contact Info) Description 02/23/2023 Procedure Pass [facility], Ct Scan - [address] [address] Social History Tobacco Use Types Packs/Day Years [...] st Contact Info) Description 02/20/2024 Procedure Pass [facility] Radiology 75 [place] [address] 02/25/2025 2:00 PM EST Appointment [facility] Radiology [address] [place] [address] Benji Hardwick MD, MPH [address] [place] [phone] [email or web address] 02/25/2025 2:30 PM EST Appointment [facility] Pulmonary Function Lab [address] [place] [address] Benji Hardwick MD, MPH [address] [place] [address] [email or web address] 02/25/2025 3:40 PM EST Office Visit [facility] Diseases [address] [place] [address] Benji Hardwick MD, MPH [address] [place] [address] [email or web address] 03/19/2025 9:40 AM EST Office Visit [facility] [address] [place] [address] Tanisha Rajan MD [address] [place] [address] [email or web address] documented as of this encounter Visit Diagnoses Not on filedocumented in this encounter Additional Health Concerns Assessment Noted Time PHQ-2 Depression Total Score: 0 12/26/19 23 9:51 AM EST documented as of this encounter Care Teams Recreation Superintendent Relationship Specialty Start Date End Date Aaliyah Smith MD PCP - General Internal Medicine 01/01/18 07/10/23 Aaliyah Smith MD PCP - General Internal Medicine 11/14/23 Sudhakar Curtis MD [address] [place] [address] [email or web address] Surgery 12/21/22 documented as of this encounter Additional Source Comments The information contained in this document represents components of the legal health record. It is not the complete legal health record.[facility]
--- OUTSIDE RECORDS SUMMARY | 2025-01-18 17:37 | XMS_ITS | Encounter Summary ---
Author Organization [facility] Address [address] [place] [address] Phone Care Team Providers Care International Specialist Name Role Phone Aaliyah Smith MD Primary Care Provider [phone] Sudhakar Curtis MD Unavailable [phone] Aaliyah Smith MD Primary Care Provider + [phone] Encounter Details Date Type Department Care Team (Late st Contact Info) Description 12/25/2022 Procedure Pass [facility] [address] [place] [address] Social History Tobacco Use Types Packs/Day Years [...] st Contact Info) Description 02/20/2024 Procedure Pass [facility] Radiology [address] [place] [address] 02/25/2025 2:00 PM EST Appointment [facility] Radiology [address] [place] [address] Benji Hardwick MD, MPH [address] [place] [address] [email or web address] 02/25/2025 2:[address] [facility] Pulmonary Function Lab 15 [place] [address] Benji Hardwick MD, MPH [address] [place] [address] [email or web address] 02/25/2025 3:40 PM EST Office Visit [facility] 15 [place] [address] Benji Hardwick MD, MPH [address] [place] [address] [email or web address] 03/19/2025 9:40 AM EST Office Visit [facility] [address] [place] [address] Tanisha Rajan MD [address] [place] [address] [email or web address] documented as of this encounter Visit Diagnoses Not on filedocumented in this encounter Additional Health Concerns Assessment Noted Time PHQ-2 Depression Total Score: 0 12/26/19 23 9:51 AM EST documented as of this encounter Care Teams International Specialist Relationship Specialty Start Date End Date Aaliyah Smith MD PCP - General Internal Medicine 01/01/18 07/10/23 Aaliyah Smith MD PCP - General Internal Medicine 11/14/23 Sudhakar Curtis MD [address] [place] [address] [email or web address] Orthopedic Surgery 12/21/22 documented as of this encounter Additional Source Comments The information contained in this document represents components of the legal health record. It is not the complete legal health record.[facility]
--- OUTSIDE RECORDS SUMMARY | 2025-01-18 17:37 | XMS_ITS | Encounter Summary ---
Author Organization [facility] Address [address] [facility] [address] [place] [address] Phone Care Team Providers Care School Photograph Editor Name Role Phone Aaliyah Smith MD Primary Care Provider [phone] Sudhakar Curtis MD Unavailable [phone] Aaliyah Smith MD Primary Care Provider Encounter Details Date Type Department Care Team (Late st Contact Info) Description 01/24/2021 Transcribe Orders Virtual Department 30 [place] [address] Aaliyah Smith MD [address] [place] [address] Chest wall mass (Primary Dx) Social History [...] Procedure Pass [facility] 75 [place] [address] 02/25/2025 2:00 PM EST Appointment [facility] 75 [place] [address] Benji Hardwick MD, MPH [address] [address] [email or web address] 02/25/2025 2:30 PM EST Appointment [facility] Pulmonary Function Lab 15 [place] [address] Benji Hardwick MD, MPH [address] [address] [email or web address] 02/25/2025 3:40 PM EST Office Visit [facility] Center for Chest Diseases 15 [place] [address] Benji Hardwick MD, MPH [address] [place] [address] [email or web address] 03/19/2025 9:40 AM EST Office Visit [facility] [address] [place] [address] Tanisha Rajan MD [address] [place] [address] [email or web address] documented as of this encounter Results [...] documented as of this encounter Care Teams School Photograph Editor Relationship Specialty Start Date End Date Aaliyah Smith MD PCP - General Internal Medicine 01/01/18 07/10/23 Aaliyah Smith MD PCP - General Internal Medicine 11/14/23 Sudhakar Curtis MD [address] [place] [address] [email or web address] Orthopedic Surgery 12/21/22 documented as of this encounter Additional Source Comments The information contained in this document represents components of the legal health record. It is not the complete legal health record.[facility]
--- OUTSIDE RECORDS SUMMARY | 2025-01-18 17:38 | XMS_ITS | Encounter Summary ---
Author Organization [facility] Address [address] [employer] [facility] [address] [place] [address] Phone Care Team Providers Care Step Finisher Name Role Phone Aaliyah Smith MD Primary Care Provider [phone] Sudhakar Curtis MD Unavailable [phone] Aaliyah Smith MD Primary Care Provider Encounter Details Date Type Department Care Team (Late st Contact Info) Description 2018 Transcribe Orders [facility] Main [address] [place] [address] Tanisha Rajan MD [address] [address] [email or web address] Postsurgical hypothyroidism (Primary Dx); Thyroid cancer Social [...] Procedure Pass [facility] 75 [place] [address] 02/25/2025 2:00 PM EST Appointment [facility] 75 [place] [address] Benji Hardwick MD, MPH [facility] 270 [place] [address] [email or web address] 02/25/2025 2:30 PM EST Appointment [facility] Pulmonary Function Lab 15 [place] [address] Benji Hardwick MD, MPH [address] [place] [address] [email or web address] 02/25/2025 3:40 PM EST Office Visit [facility] Chest Diseases 15 [place] [address] Benji Hardwick MD, MPH [address] [place] [address] [email or web address] 03/19/2025 9:40 AM EST Office Visit [facility] [address] [place] [address] Tanisha Rajan MD [address] [place] [address] [email or web address] documented as of this encounter Results * (ABNORMAL) Thyroglobulin, Tumor Marker (2018 1:40 PM EST) THYROGLOBULIN 2.4(H) ng/mL [facility] Comment: (NOTE) REFERENCE VALUE Athyrotic <0.1 Intact Thyroid <=33 THYROGLOBULIN AB <1.8 <4.0 IU/mL [facility] MED[facility] THYROGLOBULIN INTRP SEE NOTE [facility] Comment: (NOTE) Thyroglobulin [...] testing methods are immunoenzymatic assays manufactured by [employer]. and performed on the Bionostra DXI 800. Values obtained from different assay methods or kits may be different and cannot be used interchangeably. The results cannot be interpreted as absolute evidence for the presence or absence of malignant disease. Blood 2018 1:40 PM EST 2018 1:43 PM EST Tanisha Rajan MD LAB BLOOD ORDERABLES F inal Result [facility] [place] [address] * (ABNORMAL) TSH with reflex (2018 1:40 PM EST) TSH 0.10(L) 0.27 - 4.20 uIU/mL [facility] Blood 2018 1:40 PM EST 2018 1:43 PM EST Tanisha Rajan MD LAB BLOOD BKR ORDERABL ES Final Result Performing Organization Address [facility]/ZIP Co de Phone Number [facility] 30 [place] [address] documented in this encounter Visit Diagnoses Diagnosis Postsurgical hypothyroidism- Primary Thyroid cancer Malignant neoplasm of thyroid gland documented in this encounter Additional Health Concerns Infection Onset Date Last Indicated Resolved Time CoV-Risk 11/02/2020 11/02/2020 11/12/2020 1:23 AM EDT documented as of this encounter Care Teams Step Finisher Relationship Specialty Start Date End Date Aaliyah Smith MD PCP - General Internal Medicine 01/01/18 07/10/23 Aaliyah Smith MD PCP - General Internal Medicine 11/14/23 Sudhakar Curtis MD [address] [place] [address] [email or web address] Surgery 12/21/22 documented as of this encounter Additional Source Comments The information contained in this document represents components of the legal health record. It is not the complete legal health record.[facility]
--- OUTSIDE RECORDS SUMMARY | 2025-01-18 17:38 | XMS_ITS | Encounter Summary ---
Author Organization [facility] Address 399 [facility] [address] [place] [address] Phone Care Team Providers Care Fiber Optic Assembly Worker Name Role Phone Aaliyah Smith MD Primary Care Provider [phone] Sudhakar Curtis MD Unavailable [phone] Aaliyah Smith MD Primary Care Provider [phone] Encounter Details Date Type Department Care Team (Late st Contact Info) Description 08/02/2021 Transcribe Orders Virtual Department [address] [place] [address] Tanisha Rajan MD [address] [place] [address] [email or web address] Thyroid cancer (Primary Dx) Social History Tobacco [...] Info) Description 02/20/2024 Procedure Pass [facility] 75 [place] [address] 02/25/2025 2:00 PM EST Appointment [facility] [address] [place] [address] Benji Hardwick MD, MPH [address] [place] [address] [email or web address] 02/25/2025 2:30 PM EST Appointment [facility] Pulmonary Function Lab [address] [place] [address] Benji Hradwick MD, MPH [address] [place] [address] [email or web address] 02/25/2025 3:40 PM EST Office Visit [facility] Center for Chest Diseases [address] [place] [address] Benji Hardwick MD, MPH [address] [place] [address] [email or web address] 03/19/2025 9:40 AM EST Office Visit [facility] [address] [place] [address] Tanisha Rajan MD [address] [place] [address] [email or web address] [...] documented as of this encounter Care Teams Fiber Optic Assembly Worker Relationship Specialty Start Date End Date Aaliyah Smith MD PCP - General Internal Medicine 01/01/18 07/10/23 Aaliyah Smith MD PCP - General Internal Medicine 11/14/23 Sudhakar Curtis MD [address] [place] [address] [email or web address] Orthopedic Surgery 12/21/22 documented as of this encounter Additional Source Comments The information contained in this document represents components of the legal health record. It is not the complete legal health record.[facility]
--- OUTSIDE RECORDS SUMMARY | 2025-01-18 17:38 | XMS_ITS | Encounter Summary ---
Author Organization [facility] Address [address] [employer] [facility] [address] [place] [address] Phone Care Team Providers Care Medical Information Officer Name Role Phone Aaliyah Smith MD Primary Care Provider [phone] Sabina Curtis MD Unavailable [phone] Aaliyah Smith MD Primary Care Provider + [phone] Encounter Details Date Type Department Care Team (Late st Contact Info) Description 11/27/2018 Ancillary Orders Virtual Department 30 [place] [address] Tanisha Rajan MD [address] [address] [email or web address] Thyroid cancer Social History Tobacco Use Types [...] st Contact Info) Description 02/20/2024 Procedure Pass [facility] 75 [place] [address] 02/25/2025 2:00 PM EST Appointment [facility] 75 [place] [address] Benji Hardwick MD, MPH [facility] [address] [place] [address] [email or web address] 02/25/2025 2:30 PM EST Appointment [facility] Pulmonary Function Lab 15 [place] [address] Benji Hardwick MD, MPH [address] [place] [address] [email or web address] 02/25/2025 3:40 PM EST Office Visit [facility] Center for Chest Diseases 15 [place] [address] Benji Hardwick MD, MPH [address] [place] [address] [email or web address] 03/19/2025 9:40 AM EST Office Visit [facility] [address] [place] [address] Tanisha Rajan MD [address] [place] [address] [email or web address] documented as of this encounter Results * [...] documented as of this encounter Care Teams Medical Information Officer Relationship Specialty Start Date End Date Aaliyah Smith MD PCP - General Internal Medicine 01/01/18 07/10/23 Aaliyah Smith MD PCP - General Internal Medicine 11/14/23 Sabina Curtis MD [address] [place] [address] [email or web address] Orthopedic Surgery 12/21/22 documented as of this encounter Additional Source Comments The information contained in this document represents components of the legal health record. It is not the complete legal health record.[facility]
--- OUTSIDE RECORDS SUMMARY | 2025-01-18 17:38 | XMS_ITS | Encounter Summary ---
Author Organization [facility] Address 399 [facility] [address] [place] [address] Phone Care Team Providers Care Analytics Intern Name Role Phone Tanisha Rajan MD Primary Care Provider Aaliyah Smith MD Primary Care Provider Sudhakar Curtis MD Unavailable [phone] Aaliyah Smith MD Primary Care Provider Encounter Details Date Type Department Care Team (Late st Contact Info) Description 11/29/2017 Ancillary Orders Virtual Department [address] [place] [address] Tanisha Rajan MD [address] [address] [email or web address] Thyroid cancer Social History Tobacco Use Types [...] Procedure Pass [facility] 75 [place] [address] 02/25/2025 2:00 PM EST Appointment [facility] 75 [place] [address] Benji Hardwick MD, MPH [address] [address] [email or web address] 02/25/2025 2:30 PM EST Appointment [facility] Pulmonary Function Lab 15 [place] [address] Benji Hardwick MD, MPH [address] [place] [address] [email or web address] 02/25/2025 3:40 PM EST Office Visit [facility] Center for Chest Diseases 15 [place] [address] Benji Hardwick MD, MPH [address] [place] [address] [email or web address] 03/19/2025 9:40 AM EST Office Visit [facility] [address] [place] [address] Tanisha Rajan MD [address] [place] [address] [email or web address] documented as of this encounter Results * [...] formetastatic disease. POS [id number] Tanisha Rajan MD [facility] HEAD/NECK NON T HYROID Final Result documented in this encounter Visit Diagnoses Diagnosis Thyroid cancer Malignant neoplasm of thyroid gland Thyroid cancer Malignant neoplasm of thyroid gland documented in this encounter Additional Health Concerns Infection Onset Date Last Indicated Resolved Time CoV-Risk 11/02/2020 11/02/2020 11/12/2020 1:23 AM EDT documented as of this encounter Care Teams Analytics Intern Relationship Specialty Start Date End Date Tanisha Rajan MD [address] [place], [place] [phone] [email or web address] PCP - General Endocrinology 06/13/17 12/31/17 Aaliyah Smith MD [address] [place] [address] PCP - General Internal Medicine 01/01/18 07/10/23 Aaliyah Smith MD [address] [place] [address] PCP - General Internal Medicine 11/14/23 Sudhakar Curtis MD [address] [place] [address] [email or web address] Orthopedic Surgery 12/21/22 documented as of this encounter Additional Source Comments The information contained in this document represents components of the legal health record. It is not the complete legal health record.[facility]
--- OUTSIDE RECORDS SUMMARY | 2025-01-18 17:38 | XMS_ITS | Clinical Summary ---
Author Organization [facility] Address [address] [place] [address] Care Team Providers Care Order Analyst Name Role Phone Aaliyah Carrillo MD Primary Care Provider [phone] Allergies No known active allergies Medications levothyroxine [...] drink = 0.6 oz pur e alcohol) [facility] Utilities Answer Date Recorded In the past 12 months has e [employer], gas, oil, or water [employer] threatened to shut off services in your [...] place to sleep or slept in a retirement (including now)? No 06/12/2023 Sex and Gender [...] patient's age to complete this topic Insurance [facility] COMMERCIAL MEDICARE PART A & B [place] [id number] [facility] Eddy FEE BASIS 16 F,ATTN:[place] [address] Advance Directives * Full Code (Latest Code Status on File) Date Activated Date Inactivated Comments 06/12/2023 11:05 AM Question Answer Comments Decision Thoroughly Discussed with: Patient * Full Code Date Activated Date Inactivated Comments 06/12/2023 5:45 AM 06/12/2023 11:05 AM Care Teams Order Analyst Relationship Specialty Start Date End Date Aaliyah Carrillo MD [address] [place] [phone] PCP - General Internal Medicine 06/12/23 Aaliyah Carrillo [address] [place] [address], [facility] [address] [address] Primary Care Provider Internal Medicine 04/15/23 Benji Hardwick [address] [place] [address] Physician Pulmonary Disease 04/15/23
--- OUTSIDE RECORDS SUMMARY | 2025-01-18 17:38 | XMS_ITS | Encounter Summary ---
Author Organization [facility] Address [address] [employer] [facility] [address] [place] [address] Phone Care Team Providers Care Supervisor Meter Shop Name Role Phone Aaliyah Smith MD Primary Care Provider [phone] Sudhakar Curtis MD Unavailable [phone] Aaliyah Smith MD Primary Care Provider [phone] Encounter Details Date Type Department Care Team (Late st Contact Info) Description 07/28/2020 Ancillary Orders Virtual Department 30 [place] [address] Tanisha Rajan MD [address] [address] [email or web address] Postsurgical hypothyroidism Social History Tobacco Use Types [...] Info) Description 02/20/2024 Procedure Pass [facility] 75 [place] [address] 02/25/2025 2:00 PM EST Appointment [facility] 75 [place] [address] Benji Hardwick MD, MPH 15 [facility] [address] [place] [address] [email or web address] 02/25/2025 2:30 PM EST Appointment [facility] Pulmonary Function Lab 15 [place] [address] Benji Hardwick MD, MPH [address] [place] [address] [email or web address] 02/25/2025 3:40 PM EST Office Visit [facility] Center for Chest Diseases 15 [place] [address] Benji Hardwick MD, MPH [address] [place] [address] [email or web address] 03/19/2025 9:40 AM EST Office Visit [facility] [address] [place] [address] Tanisha Rajan MD [address] [place] [address] [email or web address] documented as of this encounter Results * [...] documented as of this encounter Care Teams Supervisor Meter Shop Relationship Specialty Start Date End Date Aaliyah Smith MD PCP - General Internal Medicine 01/01/18 07/10/23 Aaliyah Smith MD PCP - General Internal Medicine 11/14/23 Sudhakar Curtis MD 75 [place] [address] [email or web address] Orthopedic Surgery 12/21/22 documented as of this encounter Additional Source Comments The information contained in this document represents components of the legal health record. It is not the complete legal health record.[facility]
--- OUTSIDE RECORDS SUMMARY | 2025-01-18 17:38 | XMS_ITS | Clinical Summary ---
Author Organization [facility] Address 399 [facility] [address] [place] [address] Phone Care Team Providers Care Medical Support Assistant Name Role Phone Sudhakar Curtis MD Unavailable [phone] Aaliyah Smith MD Primary Care Provider Allergies [...] left for the patient to contact [facility] that could possibly provide co-payment assistance for the Isma Almaguer ([phone]). Liset Menard RPSGT Problem Noted Date Diagnosed Date Hypocalcemia 08/13/2024 Assessment & Plan (08/13/2024 5:51 PM EDT): Possible pseudog[place] [facility] [place] No evidence of hypercalcemia/primary hyperparathyroidism. 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 Prior to MCGINNIS, SH 86, TG 4. Was given 100 mCi I-131, uptake in thyroid bed only. Following rx, persistent low level TG (0.2-0.3 6323-8945, 0.7-0.8 2010- 2012, 1.2-1.4 9838-3784, 1.8-3.1 3793-4093, 3.9-5.4 , 7.2-9.7 ), increasing gradually to [...] Following rx, persistent low level TG (0.2-0.3 7110-5372, 0.7-0.8 2010- 2012, 1.2-1.4 9941-1413, 1.8-3.1 0333-8299, 3.9-5.4 , 7.2-9.7 ), increasing gradually to [...] Following rx, persistent low level TG (0.2-0.3 3346-3365, 0.7-0.8 2010- 2012, 1.2-1.4 3654-6844, 1.8-3.1 0643-7750, 3.9-5.4 , 7.2-9.7 ), increasing gradually to [...] Encounters Date Type Department Care Team Description 01/04/2025 Telephone [facility] [address] [place] [address] [place] [address] Tanisha Rajan MD Provider Update from Last 3 Months Immunizations Immunization Administration [...] st Contact Info) Description 02/20/2024 Procedure Pass [facility] Radiology [address] [place] [address] 02/25/2025 2:00 PM EST Appointment [facility] Radiology [address] [place] [address] Benji Hardwick MD, MPH [address] [place] [address] [email or web address] 02/25/2025 2:30 PM EST Appointment [facility] Pulmonary Function Lab [address] [place] [address] Benji Hardwick MD, MPH [address] [place] [address] [email or web address] 02/25/2025 3:40 PM EST Office Visit [facility] [address] [place] [address] Benji Hardwick MD, MPH [address] [place] [address] [address] [place] [address] [email or web address] 03/19/2025 9:40 AM EST Office Visit [facility] [address] [place] [address] Tanisha Rajan MD [address] [place] [address] [email or web address] Health Maintenance Due Date Last Done Comments SMOKING Hx and SMOKELESS TOBACCO SCREENING 01/02/1960 HEPATITIS C SCREENING 1965 RSV VACCINE (1 - 1-dose 75+ series) 2022 Adult Td,Tdap Booster 05/08/2023 05/07/2013, 014 LIPID PANEL 10/10/2023 10/09/2018 INFLUENZA VACCINE (#1) 2024 12/11/2013 COVID-19 VACCINE ( season) 2024 05/11/2020, 04/13/2020 DEPRESSION SCREENING 02/19/2025 02/20/2024 TSH LEVEL 07/10/2025 07/10/2024, 11/0 08/2023, 07/02/2023, Additional history exists ZOSTER VACCINES Completed [...] this topic Medical Devices Implanted Type Area Loading Machine Operator Helper Device Identifier Shelf Expiration Date Model / [...] EDT) TSH 0.06(L) 0.27 - 4.20 uIU/mL [facility] Blood 07/10/2024 12:1 0 PM EDT 07/10/2024 12:15 PM EDT us Tanisha Rajan MD LAB BLOOD BKR ORDERABL ES Final Result Performing Organization Address City/State/[facility] Co de Phone Number [address] [address] from Last 3 Months or Most Recently Relevant to Health Maintenance Insurance [place] [id number] [facility] MEDEX SUPPLEMENT Member Subscriber Plan / Payer (Ef fective 2008-Present) Name:Evert Clemons Relation to Subscriber:Self Name:Evert Clemons Payer ID:[id number] (NAIC) Type:Indemnity Address: [address] MEDICARE PART A & B [facility] MEDEX SUPPLEMENT Member Subscriber Plan / Payer (Ef fective 2008-Present) Name:Evert Clemons Relation to Subscriber:Self Name:Evert Clemons Payer ID:[id number] (NAIC) Type:Indemnity Address: [address] MEDICARE PART A & B [employer] MEDEX SUPPLEMENT [facility] MEDICARE PART A & B [employer] MEDEX SUPPLEMENT Member Subscriber Plan / Payer (Ef fective 2008-Present) Name:Evert Clemons Relation to Subscriber:Self Name:Evert Clemons Payer ID:[id number] (NAIC) Type:Indemnity Address: [address] MEDICARE PART A & B [employer] SUPPLEMENT Member Subscriber Plan / Payer (Ef fective 2008-Present) Name:TiffaniericaTylerer Relation to Subscriber:Self Name:Evert Clemons Payer ID:[id number] (NAIC) Type:Indemnity Address: [address] MEDICARE PART A & B [employer] SUPPLEMENT Member Subscriber Plan / Payer (Ef fective 2020-Present) Name:Evert Clemons Relation to Subscriber:Self Name:Evert Clemons Payer ID:[id number] (NAIC) Group ID:Not on file Type:Indemnity Address: [facility] [employer] [id number] [place] [id number] [place] A [place] [id number] [employer] CROSS MEDEX SUPPLEMENT [facility] MEDICARE PART A & B [facility] MEDEX SUPPLEMENT [facility] MEDICARE PART A & B [employer] MEDEX SUPPLEMENT [facility] Care Teams Medical Support Assistant Relationship Specialty Start Date End Date Aaliyah Smith MD [address] [place] [address] PCP - General Internal Medicine 11/14/23 Sudhakar Curtis MD [address] [place] [address] [email or web address] Orthopedic Surgery 12/21/22 Additional Source Comments The information contained in this document represents components of the legal health record. It is not the complete legal health record.[facility]
--- OUTSIDE RECORDS SUMMARY | 2025-01-18 17:38 | XMS_ITS | Encounter Summary ---
Author Organization [facility] Address [address] [place] [address] Phone Care Team Providers Care Assistant Fitness Manager Name Role Phone Sudhakar Curtis MD Unavailable [phone] Aaliyah Smith MD Primary Care Provider + [phone] Reason for Visit * Reason Onset Date Comments Provider Update 01/04/2025 Encounter Details Date Type Department Care Team (Late st Contact Info) Description 01/04/2025 Telephone [facility] [address] [place] [address] Tanisha Rajan MD [address] [place] [address] [email or web address] Provider Update Social History Tobacco Use Types Packs/Day Years [...] on file documented as of this encounter Progress Notes * Janessa Bhatia RN - 01/04/2025 11:[address] Rajan ptGuerrero Can't obtain notes from [facility]. I faxed request to [facility] Medical Records, requesting clinical notes/pertinent labs. * Janessa Gan - 01/04/2025 9:37 AM EST Patient has been discharged from the hospital following an atrial flutter. Patient is asking if they need to be seen sooner, than their 03/19/25 appointment? Please call [phone] documented in this encounter Plan of Treatment Upcoming Encounters Date Type Department Care Team (Late st Contact Info) Description 02/20/2024 Procedure Pass [facility] Radiology [address] [place] [address] 02/25/2025 2:00 PM EST Appointment [facility] Radiology [address] [place] [address] Benji Hardwick MD, MPH [address] [place] [phone] [email or web address] 02/25/2025 2:30 PM EST Appointment [facility] Pulmonary Function Lab [address] [place] [address] Benji Hardwick MD, MPH [address] [place] [phone] [email or web address] 02/25/2025 3:40 PM EST Office Visit [facility] [address] [place] [address] Benji Hardwick MD, MPH 15 [facility] [address] [place] [address] [email or web address] 03/19/2025 9:40 AM EST Office Visit [facility] [address] [place] [address] Tanisha Rajan MD 22 [facility] 3rd [place] [address] [email or web address] documented as of this encounter Visit Diagnoses Not on filedocumented in this encounter Additional Health Concerns Assessment Noted Time PHQ-2 Depression Total Score: 2 02/19/19 25 4:03 PM EST documented as of this encounter Care Teams Assistant Fitness Manager Relationship Specialty Start Date End Date Aaliyah Smith MD [address] [place] [address] PCP - General Internal Medicine 11/14/23 Sudhakar Curtis MD [address] [place] [address] [email or web address] Orthopedic Surgery 12/21/22 documented as of this encounter Additional Source Comments The information contained in this document represents components of the legal health record. It is not the complete legal health record.[facility]
--- OUTSIDE RECORDS SUMMARY | 2025-01-18 17:38 | XMS_ITS | Encounter Summary ---
Author Organization [facility] Address [address] [facility] [address] [place] [address] Phone Care Team Providers Care Customer Services Supervisor Name Role Phone Aaliyah Smith MD Primary Care Provider [phone] Sudhakar Curtis MD Unavailable [phone] Aaliyah Smith MD Primary Care Provider [phone] Encounter Details Date Type Department Care Team (Late st Contact Info) Description 09/02/2020 Ancillary Orders [facility],Outside Imaging 30 [place] [address] System, Provider Not In, PhD [address] [address] Social History Tobacco Use Types Packs/Day Years [...] [facility] 75 [place] [address] 02/25/2025 2:00 PM EST Appointment [facility] [address] [place] [address] Benji Hardwick MD, MPH [address] [place] [address] [address] [place] [address] [email or web address] 02/25/2025 2:30 PM EST Appointment [facility] Pulmonary Function Lab 15 [place] [address] Benji Hardwick MD, MPH [address] [place] [address] [email or web address] 02/25/2025 3:40 PM EST Office Visit [facility] Diseases [address] [place] [address] Benji Hardwick MD, MPH [address] [place] [address] [email or web address] 03/19/2025 9:40 AM EST Office Visit [facility] [address] [place] [address] Tanisha Rajan MD [address] [place] [address] [email or web address] documented as of this encounter Results * [...] documented as of this encounter Care Teams Customer Services Supervisor Relationship Specialty Start Date End Date Aaliyah Smith MD PCP - General Internal Medicine 01/01/18 07/10/23 Aaliyah Smith MD PCP - General Internal Medicine 11/14/23 Suhdakar Curtis MD [address] [place] [address] [email or web address] Orthopedic Surgery 12/21/22 documented as of this encounter Additional Source Comments The information contained in this document represents components of the legal health record. It is not the complete legal health record.[facility]
--- OUTSIDE RECORDS SUMMARY | 2025-01-18 17:38 | XMS_ITS | Encounter Summary ---
Author Organization [facility] Address [address] [place] [address] Care Team Providers Care Application Security Engineer Name Role Phone Pcp, No Primary Care Provider Unavailabl e Unknown Primary Care Provider [phone] Aaliyah Carrillo MD Primary Care Provider [phone] Encounter Details Date Type Department Care Team (Late st Contact Info) Description 12/19/2020 Scanned Document [facility] [place] at [address] [phone] Provider, External, [address] [place] [address] Social History Tobacco Use Types Packs/Day Years [...] on filedocumented in this encounter Care Teams Application Security Engineer Relationship Specialty Start Date End Date Pcp, No PCP - General General Medicine 12/19/20 04/14/23 Unknown Unknow Provider Address PCP - General 04/16/23 06/11/23 Aaliyah Carrillo MD [address] [place] [phone] PCP - General Internal Medicine 06/12/23 Aaliyah Carrillo [address] [place] [address], [place] [address], [place] [address] Primary Care Provider Internal Medicine 04/15/23 Aaliyahdarryl Carrillo [address] [place] [address], [address] [address] Primary Care Provider Internal Medicine 04/15/23 Benji Hardwick [address] [place] [address] Physician Pulmonary Disease 04/15/23 documented as of this encounter
--- OUTSIDE RECORDS SUMMARY | 2025-01-18 17:38 | XMS_ITS | Encounter Summary ---
Author Organization [facility] Address [address] [place] [address] Care Team Providers Care Geothermal Operations Manager Name Role Phone Pcp, Janene Primary Care Provider Unavailabl e Unknown Primary Care Provider [phone] Aaliyah Carrillo MD Primary Care Provider [phone] Encounter Details Date Type Department Care Team (Late st Contact Info) Description 12/27/2020 Scanned Document [facility] Pulmonary and Critical Care[address] [phone] Pulmonary, Scan Social History Tobacco [...] on filedocumented in this encounter Care Teams Geothermal Operations Manager Relationship Specialty Start Date End Date Pcp, No PCP - General General Medicine 12/19/20 04/14/23 Unknown Unknow Provider Address PCP - General 04/16/23 06/11/23 Aaliyah Carrillo MD [address] [place] [phone] PCP - General Internal Medicine 06/12/23 Aaliyah Carrillo 57 [facility], [address] [address] Primary Care Provider Internal Medicine 04/15/23 Aaliyah Carrillo [address] [place] [address], [place] [address], [place] [address] Primary Care Provider Internal Medicine 04/15/23 Benji Hardwick [address] [place] [address] Physician Pulmonary Disease 04/15/23 documented as of this encounter
--- OUTSIDE RECORDS SUMMARY | 2025-01-18 17:38 | XMS_ITS | Encounter Summary ---
Author Organization [facility] Address [address] [facility] [address] [place] [address] Phone Care Team Providers Care Buttonhole Machine Operator Name Role Phone Aaliyah Smith MD Primary Care Provider [phone] Sudhakar Curtis MD Unavailable [phone] Aaliyah Smith MD Primary Care Provider [phone] Encounter Details Date Type Department Care Team (Late st Contact Info) Description 08/18/2020 Procedure Pass [address] [address] Social History Tobacco Use Types Packs/Day Years [...] 02/20/2024 Procedure Pass [facility] 75 [place] [address] 02/25/2025 2:00 PM EST Appointment [facility] [address] [place] [address] Benji Hardwick MD, MPH [address] [place] [address] [email or web address] 02/25/2025 2:30 PM EST Appointment [facility] Pulmonary Function Lab [address] [place] [address] Benji Hardwick MD, MPH [address] [place] [address] [email or web address] 02/25/2025 3:40 PM EST Office Visit [facility] Diseases 15 [place] [address] Benji Hardwick MD, MPH [address] [place] [address] [email or web address] 03/19/2025 9:40 AM EST Office Visit [facility] [address] [place] [address] Tanisha Rajan MD [address] [place] [address] [email or web address] documented as of this encounter Visit Diagnoses Not on filedocumented in this encounter Additional Health Concerns Infection Onset Date Last Indicated Resolved Time CoV-Risk 11/02/2020 11/02/2020 11/12/2020 1:23 AM EDT documented as of this encounter Care Teams Buttonhole Machine Operator Relationship Specialty Start Date End Date Aaliyah Smith MD PCP - General Internal Medicine 01/01/18 07/10/23 Aaliyah Smith MD PCP - General Internal Medicine 11/14/23 Sudhakar Curtis MD [address] [place] [address] [email or web address] Orthopedic Surgery 12/21/22 documented as of this encounter Additional Source Comments The information contained in this document represents components of the legal health record. It is not the complete legal health record.[facility]
--- OUTSIDE RECORDS SUMMARY | 2025-01-18 17:38 | XMS_ITS | Encounter Summary ---
Author Organization [facility] Address [address] [employer] [facility] [address] [place] [address] Phone Care Team Providers Care Safety Trainer Name Role Phone Aaliyah Smith MD Primary Care Provider [phone] Sudhakar Curtis MD Unavailable [phone] Aaliyah Smith MD Primary Care Provider [phone] Encounter Details Date Type Department Care Team (Late st Contact Info) Description 07/15/2018 Transcribe Orders [facility] Main [address] [place] [address] Tanisha Rajan MD [address] [address] [email or web address] Malignant neoplasm of thyroid gland (Primary Dx) [...] Procedure Pass [facility] 75 [place] [address] 02/25/2025 2:00 PM EST Appointment [facility] [address] [place] [address] Benji Hardwick MD, MPH 15 [facility] [address] [place] [address] [email or web address] 02/25/2025 2:30 PM EST Appointment [facility] Pulmonary Function Lab 15 [place] [address] Benji Hardwick MD, MPH [address] [place] [phone] [email or web address] 02/25/2025 3:40 PM EST Office [facility] Center for Chest Diseases 15 [place] [address] Benji Hardwick MD, MPH [address] [place] [address] [email or web address] 03/19/2025 9:40 AM EST Office Visit [facility] [address] [place] [address] Tanisha Rajan MD [address] [place] [address] [email or web address] documented as of this encounter Results * (ABNORMAL) Thyroglobulin, Tumor Marker (07/15/2018 1:23 PM EDT) THYROGLOBULIN 3.1(H) ng/mL [facility] Comment: (NOTE) REFERENCE VALUE Athyrotic <0.1 Intact Thyroid <=33 THYROGLOBULIN AB <1.8 <4.0 IU/mL [facility] THYROGLOBULIN INTRP SEE NOTE [facility] Comment: (NOTE) [...] testing methods are immunoenzymatic assays manufactured by [employer]. and performed on the [employer] DXI 800. Values obtained from different assay methods or kits may be different and cannot be used interchangeably. The results cannot be interpreted as absolute evidence for the presence or absence of malignant disease. Blood 07/15/2018 1:23 PM EDT 07/15/2018 1:27 PM EDT Tanisha Rajan MD LAB BLOOD ORDERABLES F inal Result [facility] [place] [address] * (ABNORMAL) TSH with reflex (07/15/2018 1:23 PM EDT) TSH 0.07(L) 0.27 - 4.20 uIU/mL [facility] Blood 07/15/2018 1:23 PM EDT 07/15/2018 1:26 PM EDT Tanisha Rajan MD LAB BLOOD BKR ORDERABL ES Final Result [facility] [address] [place] [address] documented in this encounter Visit Diagnoses Diagnosis Malignant neoplasm of thyroid gland- Primary documented in this encounter Additional Health Concerns Infection Onset Date Last Indicated Resolved Time CoV-Risk 11/02/2020 11/02/2020 11/12/2020 1:23 AM EDT documented as of this encounter Care Teams Safety Trainer Relationship Specialty Start Date End Date Aaliyah Smith MD PCP - General Internal Medicine 01/01/18 07/10/23 Aaliyah Smith MD PCP - General Internal Medicine 11/14/23 Sudhakar Curtis MD [address] [place] [address] [email or web address] Orthopedic Surgery 12/21/22 documented as of this encounter Additional Source Comments The information contained in this document represents components of the legal health record. It is not the complete legal health record.[facility]
--- OUTSIDE RECORDS SUMMARY | 2025-01-18 17:38 | XMS_ITS | Encounter Summary ---
Author Organization [facility] Address [address] [facility] [address] [place] [address] Phone Care Team Providers Care Office Workforce Planner Name Role Phone Tanisha Rajan MD Primary Care Provider Aaliyah Smith MD Primary Care Provider Sudhakar Curtis MD Unavailable [phone] Aaliyah Smith MD Primary Care Provider Encounter Details Date Type Department Care Team (Late st Contact Info) Description 06/13/2017 Ancillary Orders Virtual Department [address] [place] [address] [phone] Tanisha Rajan MD [address] [address] [email or web address] Thyroid cancer Social History Tobacco Use [...] Procedure Pass [facility] 75 [place] [address] 02/25/2025 2:00 PM EST Appointment [facility] 75 [place] [address] Benji Hardwick MD, MPH [address] [address] [email or web address] 02/25/2025 2:30 PM EST Appointment [facility] Pulmonary Function Lab 15 [place] [address] Benji Hardwick MD, MPH [address] [place] [address] [email or web address] 02/25/2025 3:40 PM EST Office Visit [facility] for [facility] Diseases 15 [place] [address] Benji Hardwick MD, MPH [address] [place] [address] [email or web address] 03/19/2025 9:40 AM EST Office Visit [facility] [address] [place] [address] Tanisha Rajan MD [address] [place] [address] [email or web address] documented as of this encounter Results * [...] documented as of this encounter Care Teams Office Workforce Planner Relationship Specialty Start Date End Date Tanisha Rajan MD [address] [address] PCP - General Endocrinology 06/13/17 12/31/17 LuisAaliyah chakraborty MD [address] [address] PCP - General Internal Medicine 01/01/18 07/10/23 Aaliyah Smith MD [address] [place] [address] PCP - General Internal Medicine 11/14/23 Sudhakar Curtis MD [address] [place] [address] [email or web address] Orthopedic Surgery 12/21/22 documented as of this encounter Additional Source Comments The information contained in this document represents components of the legal health record. It is not the complete legal health record.[facility]
--- OUTSIDE RECORDS SUMMARY | 2025-01-18 17:38 | XMS_ITS | Encounter Summary ---
Author Organization [employer] Address [address] [facility] [address] [place] [address] Care Team Providers Care Mechanical Technologist Name Role Phone Unavailable Primary Care Provider Unavailabl e Encounter Details Date Type Department Care Team (Latest Contact Info) Description 03/18/2018 Abstract [facility] CONVERSIONS Dental, Provider, DDS Social History Tobacco [...]
--- OUTSIDE RECORDS SUMMARY | 2025-01-18 17:38 | XMS_ITS | Encounter Summary ---
Author Organization [facility] Address [address] [facility] [address] [place] [address] Phone Care Team Providers Care Developer Automatic Name Role Phone Aaliyah Smith MD Primary Care Provider [phone] Sudhakar Curtis MD Unavailable [phone] Aaliyah Smith MD Primary Care Provider + [phone] Encounter Details Date Type Department Care Team (Late st Contact Info) Description 08/06/2019 Ancillary Orders Virtual Department 30 [place] [address] Tanisha Rajan MD [address] [address] [email or web address] Thyroid cancer Social History Tobacco Use Types [...] st Contact Info) Description 02/20/2024 Procedure Pass [facility] 75 [place] [address] 02/25/2025 2:00 PM EST Appointment [facility] [address] [place] [address] Benji Hardwick MD, MPH [address] [facility] [address] [place] [address] [email or web address] 02/25/2025 2:30 PM EST Appointment [facility] Pulmonary Function Lab 15 [place] [address] Benji Hardwick MD, MPH [address] [place] [address] [email or web address] 02/25/2025 3:40 PM EST Office Visit [facility] Diseases [address] [place] [address] Benji Hardwick MD, MPH [address] [place] [phone] [email or web address] 03/19/2025 9:40 AM EST Office Visit [facility] [address] [place] [address] Tanisha Rajan MD [address] [place] [address] [email or web address] documented as of this encounter Results * US Soft Tissues of Head and Neck (Non-Thyroid) (08/10/2019 2:10 PM EDT) Anatomical Region Laterality Modality Neck, Head Ultrasound 08/10/2019 3:03 PM EDT Impressions 08/10/2019 3:22 PM EDT No suspicious lymphadenopathy in the neck. Several benign-appearing lymph nodes. POS - [id number] Narrative 08/10/2019 3:22 PM EDT EXAM: US [...] the neck. Several benign-appearing lymphnodes. POS - [id number] Tanisha Raajn MD IMG US HEAD/NECK NON T HYROID Final Result documented in this encounter Visit Diagnoses Diagnosis Thyroid cancer Malignant neoplasm of thyroid gland Thyroid cancer Malignant neoplasm of thyroid gland documented in this encounter Additional Health Concerns Infection Onset Date Last Indicated Resolved Time CoV-Risk 11/02/2020 11/02/2020 11/12/2020 1:23 AM EDT documented as of this encounter Care Teams Developer Automatic Relationship Specialty Start Date End Date Aaliyah Smith MD PCP - General Internal Medicine 01/01/18 07/10/23 Aaliyah Smith MD PCP - General Internal Medicine 11/14/23 Sudhakar Curtis MD 75 [place] [address] [email or web address] Orthopedic Surgery 12/21/22 documented as of this encounter Additional Source Comments The information contained in this document represents components of the legal health record. It is not the complete legal health record.[facility]
--- OUTSIDE RECORDS SUMMARY | 2025-01-18 17:38 | XMS_ITS | Clinical Summary ---
Author Organization [facility] Address [address] [place], [place] [address] Care Team Providers Care Oil Field Rig Builder Name Role Phone Aaliyah Carrillo MD Primary Care Provider [phone] Allergies No known active allergies Medications Medication [...] age to complete this topic Care Teams Oil Field Rig Builder Relationship Specialty Start Date End Date Aaliyah Carrillo MD PCP - General Internal Medicine 08/24/19
--- OUTSIDE RECORDS SUMMARY | 2025-01-18 17:38 | XMS_ITS | Encounter Summary ---
Author Organization [facility] Address [address] [place] [address] Phone Care Team Providers Care Institutional Aide Name Role Phone Aaliyah Smith MD Primary Care Provider [phone] Sudhakar Curtis MD Unavailable [phone] Aaliyah Smith MD Primary Care Provider [phone] Encounter Details Date Type Department Care Team (Latest Contact Info) Description 11/21/2020 Prep for Surgery [facility] Department of Orthopaedics [address] [place] [address] Sudhakar Curtis MD [address] [place] [phone] [email or web address] Spondylolisthesis of lumbar region (Primary Dx); Lumbar [...] st Contact Info) Description 02/20/2024 [facility] Pass [facility] [address] [place] [address] 02/25/2025 2:00 PM EST Appointment [facility] [address] [place] [address] Benji Hardwick MD, MPH [address] [place] [phone] [email or web address] 02/25/2025 2:30 PM EST Appointment [facility] Pulmonary Function Lab [address] [place] [address] Benji Hardwick MD, MPH [address] [place] [phone] [email or web address] 02/25/2025 3:40 PM EST Office Visit [facility] [address] [place] [address] Benji Hardwick MD, MPH [address] [place] [phone] [email or web address] 03/19/2025 9:40 AM EST Office Visit [facility] [address] [place] [address] Tanisha Rajan MD [address] [place] [address] [email or web address] documented as of this encounter Results * Type and Screen (ABO,Rh,Antibody Screen) (12/23/2020 11:15 AM EDT) Expiration Date of Sample 01/20/2021 11:59 PM 12/23/2020 1:14 PM EDT [facility] Resulting Agency [facility] ABO Type O 12/23/2020 1:14 PM EDT [facility] Rh Type Positive 12/23/2020 1:14 PM EDT [facility] Antibody Screen Negative 12/23/2020 1:14 PM EDT [facility] 12/23/2020 11:1 5 AM EDT 12/23/2020 12:02 PM EDT us Sudhakar Curtis MD LAB BLOOD BANK TEST ORDER CHIQUIS Final Result [facility] [address] [place] [address] documented in this encounter Visit Diagnoses Diagnosis Spondylolisthesis of lumbar region- Primary Lumbar stenosis with neurogenic claudication Lumbar radiculopathy Thoracic or lumbosacral neuritis or radiculitis, unspecified documented in this encounter Care Teams Institutional Aide Relationship Specialty Start Date End Date Aaliyah Smith MD PCP - General Internal Medicine 01/01/18 07/10/23 Aaliyah Smith MD PCP - General Internal Medicine 11/14/23 Sudhakar Curtis MD [address] [place] [address] [email or web address] Surgery 12/21/22 documented as of this encounter Additional Source Comments The information contained in this document represents components of the legal health record. It is not the complete legal health record.[facility]
--- OUTSIDE RECORDS SUMMARY | 2025-01-18 17:38 | XMS_ITS | Encounter Summary ---
Author Organization [facility] Address [address] [facility] [address] [place] [address] Phone Care Team Providers Care Communications Designer Name Role Phone Tanisha Rajan MD Primary Care Provider Aaliyah Smith MD Primary Care Provider Sudhakar Curtis MD Unavailable [phone] Aaliyah Smith MD Primary Care Provider Encounter Details Date Type Department Care Team (Late st Contact Info) Description 06/17/2017 Transcribe Orders [address] [phone] Tanisha Rajan MD [address] [place] [address] [email or web address] Hypothyroidism following radioiodine therapy (Primary Dx); Malignant [...] Description 02/20/2024 Procedure Pass [facility]iology [address] [place] [address] 02/25/2025 2:00 PM EST Appointment [facility] [address] [place] [address] Benji Hardwick MD, MPH [address] [place] [phone] [email or web address] 02/25/2025 2:30 PM EST Appointment [facility] Pulmonary Function Lab [address] [place] [address] Benji Hardwick MD, MPH [address] [place] [phone] [email or web address] 02/25/2025 3:40 PM EST Office Visit [facility] Chest Diseases [address] [place] [address] Benji Hardwick MD, MPH [address] [place] [phone] [email or web address] 03/19/2025 9:40 AM EST Office Visit [facility] [address] [place] [address] Tanisha Rajan MD [address] [place] [address] [email or web address] documented as of this encounter Results * Thyroglobulin antibodies (06/17/2017 1:31 PM EDT) THYROGLOBULIN ANTIBODY, S <1.8 <4.0 IU/mL [facility] Comment: (NOTE) ADDITIONAL INFORMATION The thyroglobulin antibody testing method is an immunoenzymatic assay manufactured by [employer] and performed on the Skyrider DXI 800. Values obtained from different assay methods or kits may be different and cannot be used interchangeably. The results cannot be interpreted as absolute evidence for the presence or absence of malignant disease. Blood 06/17/2017 1:31 PM EDT 06/17/2017 1:32 PM EDT us Tanisha Rajan MD LAB BLOOD ORDERABLES F inal Result [facility] [address] [place] [address] * (ABNORMAL) Thyroglobulin, Tumor Marker (06/17/2017 1:31 PM EDT) THYROGLOBULIN 3.1(H) ng/mL [facility] Comment: (NOTE) REFERENCE VALUE Athyrotic <0.1 Intact Thyroid <=33 THYROGLOBULIN AB <1.8 <4.0 IU/mL [facility] THYROGLOBULIN INTRP SEE NOTE [facility] Comment: (NOTE) [...] testing methods are immunoenzymatic assays manufactured by [employer] and performed on the [employer]ider DXI 800. Values obtained from different assay methods or kits may be different and cannot be used interchangeably. The results cannot be interpreted as absolute evidence for the presence or absence of malignant disease. Blood 06/17/2017 1:31 PM EDT 06/17/2017 1:32 PM EDT us Tanisha Rajan MD LAB BLOOD ORDERABLES F inal Result [facility] [address] [place] [address] * (ABNORMAL) TSH with reflex (06/17/2017 1:31 PM EDT) TSH 0.09(L) 0.27 - 4.20 uIU/mL [facility] Blood 06/17/2017 1:31 PM EDT 06/17/2017 1:33 PM EDT us Tanisha Rajan MD LAB BLOOD BKR ORDERABL ES Final Result Performing Organization Address City/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 Malignant neoplasm of thyroid gland documented in this encounter Additional Health Concerns Infection Onset Date Last Indicated Resolved Time CoV-Risk 11/02/2020 11/02/2020 11/12/2020 1:23 AM EDT documented as of this encounter Care Teams Communications Designer Relationship Specialty Start Date End Date Tanisha Rajan MD [address] [address] [email or web address] PCP - General Endocrinology 06/13/17 12/31/17 Aaliyah Smith MD [address] [address] PCP - General Internal Medicine 01/01/18 07/10/23 Aaliyah Smith MD [address] [address] PCP - General Internal Medicine 11/14/23 Sudhakar Curtis MD [address] [place] [address] [email or web address] Surgery 12/21/22 documented as of this encounter Additional Source Comments The information contained in this document represents components of the legal health record. It is not the complete legal health record.[facility]
--- OUTSIDE RECORDS SUMMARY | 2025-01-18 17:38 | XMS_ITS | Encounter Summary ---
Author Organization [facility] Address [address] [facility] [address] [place] [address] Phone Care Team Providers Care Geography Instructor Name Role Phone Aaliyah Smith MD Primary Care Provider Sudhakar Curtis MD Unavailable [phone] Aaliyah Smith MD Primary Care Provider Encounter Details Date Type Department Care Team (Late st Contact Info) Description 10/10/2020 Transcribe Orders Virtual Department [address] [place] [address] Rebecca Galan PA [address] [place] [address] Ascending aorta dilatation (Primary Dx); Renal lesion [...] Procedure Pass [facility] [address] [place] [address] 02/25/2025 2:00 PM EST Appointment [facility] [address] [place] [address] Benji Hardwick MD, MPH [address] [facility] [address] [place] [address] [email or web address] 02/25/2025 2:30 PM EST Appointment [facility] Pulmonary Function Lab [address] [place] [address] Benji Hardwick MD, MPH [address] [place] [phone] [email or web address] 02/25/2025 3:40 PM EST Office Visit [facility] Diseases [address] [place] [address] Benji Hardwick MD, MPH [address] [place] [phone] [email or web address] 03/19/2025 9:40 AM EST Office Visit [facility] [address] [place] [address] Tanisha Rajan MD [address] [place] [address] [email or web address] documented as of this encounter Results * [...] documented as of this encounter Care Teams Geography Instructor Relationship Specialty Start Date End Date Aaliyah Smith MD PCP - General Internal Medicine 01/01/18 07/10/23 Aaliyah Smith MD PCP - General Internal Medicine 11/14/23 Sudhakar Curtis MD [address] [place] [phone] [email or web address] Surgery 12/21/22 documented as of this encounter Additional Source Comments The information contained in this document represents components of the legal health record. It is not the complete legal health record.[facility]
--- OUTSIDE RECORDS SUMMARY | 2025-01-18 17:38 | XMS_ITS | Clinical Summary ---
Author Organization [employer] Address [address] [facility] 7[address] [place] [address] Care Team Providers Care Winterizer Name Role Phone Unavailable Primary Care Provider [...] 75+ series) 2022 COVID-19 Vaccine (1 - 2024-2 6 season) 2024 Influenza Vaccine (#1) 2024 HIB [...]
--- OUTSIDE RECORDS SUMMARY | 2025-01-18 17:38 | XMS_ITS | Encounter Summary ---
Author Organization [facility] Address [address] [place] [address] [place] [address] Phone Care Team Providers Care Electrician Bus Name Role Phone Aaliyah Smith MD Primary Care Provider [phone] Sudhakar Curtis MD Unavailable [phone] Aaliyah Smith MD Primary Care Provider [phone] Reason for Referral * MRI/CAT Scan - Closed Specialty Diagnoses / Procedures Referred By Contac t Referred To Contact Radiology Diagnoses Spinal stenosis, unspecified spinal region Procedures MRI Lumbar Spine Sander Harris DO Phone: tel: fax: mailto:[email or web address] Referral ID Status Reason Start Date Expiration Date Visits Re quested Visits Authorized [id number] Closed 08/18/2020 08/18/2021 1 1 Encounter Details Date Type Department Care Team (Late st Contact Info) Description 08/18/2020 Ancillary Orders Virtual Department [address] [place] [address] Sander Harris DO [address] [place] [address] [email or web address] Spinal stenosis, unspecified spinal region Social History [...] st Contact Info) Description 02/20/2024 Procedure Pass [facility] Radiology 75 [place] [address] 02/25/2025 2:00 PM EST Appointment [facility] Radiology [address] [place] [address] Benji Hardwick MD, MPH [address] [place] [phone] [email or web address] 02/25/2025 2:30 PM EST Appointment [facility] Pulmonary Function Lab [address] [place] [address] Benji Hardwick MD, MPH [address] [place] [phone] [email or web address] 02/25/2025 3:40 PM EST Office Visit [facility] [address] [place] [address] Benji Hardwick MD, MPH [address] [place] [phone] [email or web address] 03/19/2025 9:40 AM EST Office Visit [facility] [address] [place] [address] Tanisha Rajan MD [address] [place] [address] documented as of this encounter Results * [...] error was alerted to me by the [facility] office. Impressions 09/02/2020 9:56 [...] documented as of this encounter Care Teams Electrician Bus Relationship Specialty Start Date End Date Aaliyah Smith MD PCP - General Internal Medicine 01/01/18 07/10/23 Aaliyah Smith MD PCP - General Internal Medicine 11/14/23 Sudhakar Curtis MD [address] [place] [phone] [email or web address] Surgery 12/21/22 documented as of this encounter Additional Source Comments The information contained in this document represents components of the legal health record. It is not the complete legal health record.[facility]
== END 2025-01-18 15:03 | disposition home or self-care (01) ==
LOC: HO.HCS 14:15
PROVIDERS: PCP Internal Medicine; Visit Provider Nurse Practitioner Family
DX: I48.3 Typical atrial flutter (principal); R00.1 Bradycardia, unspecified; Z51.89 Encounter for other specified aftercare; G47.10 Hypersomnia, unspecified
CPT/HCPCS: 93010; 99214; G2211

== ENCOUNTER → 2025-01-18 14:13 | Outpatient (BNVA) | payer MEDICARE, SELFPAY | PROVIDERS: PCP Internal Medicine; Visit Provider Nurse Practitioner Family | DX: I48.3 Typical atrial flutter (principal); R00.1 Bradycardia, unspecified; Z51.89 Encounter for other specified aftercare; G47.10 Hypersomnia, unspecified; Z79.01 Long term (current) use of anticoagulants; Z87.891 Personal history of nicotine dependence | CPT/HCPCS: 93005; 99212 ==